=== PATIENT | male | born 1960 | race African-American/Black ===

== ENCOUNTER 2017-07-10 23:11 | Emergency (ER) | payer OTHER ==
[2017-07-10 23:19] VITALS: BP 138/93; TEMP 99.1; BMI 24.3
--- NOTE | 2017-07-10 23:46 | PDOC ---
History of Present Illness - General Chief Complaint: Pain, Acute Stated Complaint: LEG PAIN Time Seen by Provider: 07/10/17 23:38 History Source: Patient Exam Limitations: No Limitations - History of Present Illness Initial Comments: 07/10/17 23:46 Patient is a a 57 year old male with h/o DVT, Laryngeal paralysis c/o right leg pain x months. States pain is throbbing 9/10 unable to sleep so came for evaluation. States he has had this pain for at least 8 months and has not gotten evaluation for this symptoms. States he is being evaluated for condroscarcoma for a lesion in the neck. He was told he with have to have a trach to get a bx but he is looking for a second opinion - has appointment in another week. He has SOB but it is no worse than usual, denies fever, chills, PMD; Dr. Cody PMHX: As above PSOCHx: neg cig, neg drug, neg etoh ALL: NKDA GENERAL/CONSTITUTIONAL: [No fever or chills. No weakness. No weight change] HEAD, EYES, EARS, NOSE AND THROAT: [No change in vision. No ear pain or discharge. throat hoarseness.] CARDIOVASCULAR: [No chest pain or shortness of breath.] RESPIRATORY: [No cough, wheezing, or hemoptysis.] GASTROINTESTINAL: [No nausea, vomiting, diarrhea or constipation. No rectal bleeding.] GENITOURINARY: [No dysuria, frequency, or change in urination.] MUSCULOSKELETAL: [No joint or muscle swelling or pain. (+) neck mass, or back pain.] SKIN AND BREASTS: [No rash or easy bruising.] NEUROLOGIC: [No headache, vertigo, loss of consciousness, or loss of sensation.] PSYCHIATRIC: [No depression or anxiety.] ENDOCRINE: [No increased thirst. No abnormal weight change.] HEMATOLOGIC/LYMPHATIC: [No anemia, easy bleeding, or history of blood clots.] ALLERGIC/IMMUNOLOGIC: [No hives or skin allergy. No latex allergy.] GENERAL: [The patient is awake, alert, and fully oriented, in no acute distress. ] HEAD: [Normal with no signs of trauma.] EYES: [Pupils equal, round and reactive to light, extraocular movements intact, sclera anicteric, conjunctiva clear.] ENT: [Ears normal, nares patent, oropharynx clear without exudates. Moist mucous membranes, hoarse voice] NECK: [Normal range of motion, supple without lymphadenopathy, JVD, (+) large masses to the left neck.] LUNGS: [Breath sounds equal, clear to auscultation bilaterally. No wheezes, and no crackles.] HEART: [Regular rate and rhythm, normal S1 and S2 without murmur, rub.] ABDOMEN: [Soft, nontender, normoactive bowel sounds. No guarding, no rebound. No masses.] EXTREMITIES: [Normal range of motion, no edema. No clubbing or cyanosis. No cords, erythema, or tenderness.] NEUROLOGICAL: [Cranial nerves II through XII grossly intact. Normal speech, normal gait.] PSYCH: [Normal mood, normal affect.] SKIN: [Warm, Dry, normal turgor, no rashes or lesions noted Past History - Past Medical History Allergies/Adverse Reactions: Allergies Allergy/AdvReac Type Severity Reaction Status Date / Time No Known Allergies Allergy Verified 04/06/13 21:55 Home Medications: Ambulatory Orders Warfarin Sodium [Coumadin] 10 mg PO DAILY #30 tablet 04/12/13 Other medical history: dvt, tumor to neck - Psycho/Social/Smoking Cessation Hx Suicidal Ideation: No Smoking Status: No Smoking History: Never smoked Number of Cigarettes Smoked Daily: 0 Hx Alcohol Use: No Drug/Substance Use Hx: No Substance Use Type: None *Physical Exam - Vital Signs Last Vital Signs Temp Pulse Resp BP Pulse Ox 99.1 F 102 H 20 138/93 99 07/10/17 23:15 07/10/17 23:15 07/10/17 23:15 07/10/17 23:15 07/10/17 23:15 ED Treatment Course - RADIOLOGY Radiology Studies Ordered: Category Date Time Status DUPLEX VASCUL US-1 LEG [US] Stat Ultrasound 07/10/17 23:45 Ordered Medical Decision Making - Medical Decision Making 07/11/17 00:28 Patient is a a 57 year old male with h/o DVT, Laryngeal paralysis c/o right leg pain x months doppler of the right leg to r/o DVT 07/11/17 01:03 Patient Full Name: PEYTON MORENO Patient Accession No: [id number] Patient : [id number] Reason for Exam: right leg pain Referring Physician: Patient Name: PEYTON MORENO THIS IS A PRELIMINARYREPORT FROM [facility] EXAM: Venous duplex unilateral, right lower extremity IMAGES: 25 INDICATION: Rule out DVT DATE OF SERVICE: 2017-07-10 23:49:03 COMPARISON: none FINDINGS: There is no DVT in the right lower extremity. IMPRESSION: No DVT. THIS DOCUMENT HAS BEEN ELECTRONICALLY SIGNED Lasha Hernandez MD 07/11/2017 00:25 EST M.D. Please call [facility] [phone] ([phone]) with questions. INTERPRETING RADIOLOGIST: Rogerio Hernandez MD Electronically Signed: Jul 11, 2017 12:27AM EDT 07/11/17 01:05 Percocet 1 tab po for pain. I discussed the physical exam findings, ancillary test results and final diagnoses with the patient. I answered all of the patient's questions. The patient was satisfied with the care received and felt comfortable with the discharge plan and treatment plan. The Patient agrees to follow up with the primary care physician within 24-72 hours. 07/11/17 02:48 At discharge russell was given a percocet for pain. Patient after taking the percocet c/o sob and dropped his sat to 64%. States that pill did not go down. placed on the monitor and given oxygen. Patient swallowed and was relieved of symptoms. will observe # [id number] Spoke with patient about getting the neck mass looked at sooner since it seems Patient feeling better pain is resolved. Selected Entries 07/11/17 06:02 Pulse Rate [ 72 Apical] Respiratory 20 Rate O2 Sat by Pulse 96 Oximetry (%) *DC/Admit/Observation/Transfer Diagnosis at time of Disposition: Leg pain Qualifiers: Laterality: right Qualified Code(s): M79.604 - Pain in right leg - Discharge Dispostion Disposition: HOME Condition at time of disposition: Stable - Referrals Referrals: Johanna Mills MD [Primary Care Provider] - - Patient Instructions Printed Discharge Instructions: DI for Leg Pain Additional Instructions: Your Discharge Instructions: You must call primary care physician within 24 hours to arrange follow-up. Return to the Emergency Department with any new, persistent or worsening symptoms, for fever, chills, SOB, dizziness or any other concerning changes that may occur.
[2017-07-11] MEDS ORDERED: ALBUTEROL SO4 2.5/IPRATROPIUM 0.5 INH SOL 3 ML VIAL.NEB. NEB ONE (01:55)
[2017-07-11 06:03] VITALS: PULSE 72
== END 2017-07-11 06:03 | disposition home or self-care (01) ==
LOC: JER 23:11
DX: M79.604 Pain in right leg (principal); Z86.718 Personal history of other venous thrombosis and embolism; R22.1 Localized swelling, mass and lump, neck
CPT/HCPCS: 93971-TC; 99281-25

== ENCOUNTER 2017-07-20 22:38 | Emergency (ER) | payer OTHER ==
[2017-07-20 22:46] VITALS: BP 145/89; PULSE 94; TEMP 99.5; BMI 25.0
--- NOTE | 2017-07-21 00:05 | PDOC ---
History of Present Illness - General Chief Complaint: Pain Stated Complaint: LEG PAIN Time Seen by Provider: 07/20/17 23:04 - History of Present Illness Initial Comments: 07/21/17 00:05 CHIEF COMPLAINT: HISTORY OF PRESENT ILLNESS: 57 year old male with h/o DVT, Laryngeal paralysis returns to ED for right leg pain x months. Patient states he has had this pain for "maybe 6-8 months now" but it was "more aggravated today" so he came in for evaluation. Patient was seen in this ED less than two weeks ago and discharged after doppler study was negative for DVT. Patient denies any shortness of breath, chest pain, or palpitations. Patient reports his No recent travel or sick contacts. PAST MEDICAL HISTORY: Denies past medical history FAMILY HISTORY: Denies SOCIAL HISTORY: Denies tobacco, alcohol, illicit drug use. SURGICAL HISTORY: Denies ALLERGIES: No known drug allergies REVIEW OF SYSTEMS General/Constitutional: Denies fever or chills. Denies weakness, weight change. HEENT: Denies change in vision. Denies ear pain or discharge. Denies sore throat. Cardiovascular: Denies chest pain or shortness of breath. Respiratory: Denies cough, wheezing, or hemoptysis. Gastrointestinal: Denies nausea, vomiting, diarrhea or constipation. Denies rectal bleeding. Genitourinary: Denies dysuria, frequency, or change in urination. Musculoskeletal: Chronic R leg pain. Denies joint or muscle swelling or pain. Denies neck or back pain. Skin and breasts: Denies rash or easy bruising. PHYSICAL EXAM General Appearance: Well-appearing, appropriately dressed. No apparent distress , no intoxication. HEENT: EOMI, PERRLA, normal ENT inspection, normal voice, TMs normal, pharynx normal. No conjunctival pallor. No photophobia, scleral icterus. Neck: Supple. Trachea midline. No tenderness, rigidity, carotid bruit, stridor , lymphadenopathy, or thyromegaly. Respiratory/Chest: Lungs CTAB. No shortness of breath, chest tenderness, respiratory distress, accessory muscle use. No crackles, rales, rhonchi, stridor , wheezing, dullness Cardiovascular: RRR. S1, S2. No JVD, murmur, bradycardia, tachycardia. Vascular Pulses: Dorsalis-Pedis (R): 2+, Dorsalis-Pedis (L): 2+ Gastrointestinal/Abdominal: Normal bowel sounds. Abdomen soft, non-distended. No tenderness or rebound tenderness. No organomegaly, pulsatile mass, guarding , hernia, hepatomegaly, splenomegaly. Lymphatic: No adenopathy, tenderness. Musculoskeletal/Extremities: Normal inspection. FROM of all extremities, normal capillary refill. Pelvis Stable. No CVA tenderness. No tenderness to extremities, pedal edema, swelling, erythema or deformity. Integumentary: Appropriate color, dry, warm. No cyanosis, erythema, jaundice or rash Neurologic: immunology specialist II-XII intact. Fully oriented, alert. Appropriate mood/affect. Motor strength 5/5. No appreciable EOM palsy, facial droop or sensory deficit. Past History - Past Medical History Allergies/Adverse Reactions: Allergies Allergy/AdvReac Type Severity Reaction Status Date / Time No Known Allergies Allergy Verified 04/06/13 21:55 Home Medications: Ambulatory Orders Naproxen 250 mg PO BID PRN #15 tablet 07/21/17 - Psycho/Social/Smoking Cessation Hx Suicidal Ideation: No Smoking Status: No Smoking History: Never smoked Have you smoked in the past 12 months: No Number of Cigarettes Smoked Daily: 0 Information on smoking cessation initiated: No Hx Alcohol Use: No Drug/Substance Use Hx: No Substance Use Type: None *Physical Exam - Vital Signs Last Vital Signs Temp Pulse Resp BP Pulse Ox 99.5 F 94 H 19 145/89 98 07/20/17 22:43 07/20/17 22:43 07/20/17 22:43 07/20/17 22:43 07/20/17 22:43 ED Treatment Course - LABORATORY CBC & Chemistry Diagram: 07/20/17 23:48 - RADIOLOGY Radiology Studies Ordered: Category Date Time Status DUPLEX VASCUL US-1 LEG [US] Stat Ultrasound 07/20/17 23:31 Ordered Medical Decision Making - Medical Decision Making 07/21/17 04:12 57 year old male with h/o DVT, Laryngeal paralysis returns to ED for right leg pain x months. Patient states he has had this pain for "maybe 6-8 months now" but it was "more aggravated today" so he came in for evaluation. -BMP eval creatinine Toradol 60 mg IM Patient reassessed; states he is feeling better after Toradol. Will discharge with NSAID rx and f/u with PMD. Advised patient of signs and symptoms for return to ER; patient verbalized understanding and agrees to plan. *DC/Admit/Observation/Transfer Diagnosis at time of Disposition: Leg pain Qualifiers: Laterality: right Qualified Code(s): M79.604 - Pain in right leg - Discharge Dispostion Condition at time of disposition: Improved Admit: No - Prescriptions Prescriptions: Naproxen 250 mg PO BID PRN #15 tablet PRN Reason: Pain - Referrals Referrals: Johanna Mills MD [Primary Care Provider] - - Patient Instructions Printed Discharge Instructions: DI for Leg Pain Additional Instructions: Please follow up with Dr. Mills by the end of the week for further evaluation of your leg pain. If you develop any loss of sensation to your legs , any loss of bowel or bladder function, shortness of breath, palpitations, or any new or worsening symptoms, please return to the ER.
[2017-07-21 00:20] LABS: ANION GAP 7 (8-16); CALCIUM 9.2 mg/dL (8.5-10.1); CO2 31 mmol/L (21-32); CREATININE 1.1 mg/dL (0.7-1.3)
[2017-07-21] MEDS ORDERED: KETOROLAC TROMETHAMINE 60 MG/2 ML VIAL IM ONE (00:26)
[2017-07-21] MEDS ORDERED: KETOROLAC TROMETHAMINE 60 MG/2 ML VIAL ONE (00:38)
--- NOTE | 2017-07-21 01:09 | PDOC ---
*Physical Exam - Vital Signs Last Vital Signs Temp Pulse Resp BP Pulse Ox 99.5 F 94 H 19 145/89 98 07/20/17 22:43 07/20/17 22:43 07/20/17 22:43 07/20/17 22:43 07/20/17 22:43 ED Treatment Course - LABORATORY CBC & Chemistry Diagram: 07/20/17 23:48 - ADDITIONAL ORDERS Additional order review: Laboratory Results 07/20/17 23:48 Sodium 139 Potassium 4.0 Chloride 101 Carbon Dioxide 31 Anion Gap 7 L BUN 13 D Creatinine 1.1 Calcium 9.2 - Medications Given in the ED: ED Medications Discontinued Medications Generic Name Dose Route Start Last Admin Trade Name Freq PRN Reason Stop Dose Admin Ketorolac Tromethamine 60 mg 07/21/17 00:26 07/21/17 00:36 Toradol Injection - IM 07/21/17 00:27 60 mg ONCE ONE Administration Medical Decision Making - Medical Decision Making 07/21/17 01:09 agree with care from YANELIS avendano *DC/Admit/Observation/Transfer Diagnosis at time of Disposition: Leg pain - Prescriptions Prescriptions: Naproxen 250 mg PO BID PRN #15 tablet PRN Reason: Pain - Referrals Referrals: Johanna Mills MD [Primary Care Provider] - - Patient Instructions Printed Discharge Instructions: DI for Leg Pain Additional Instructions: Please follow up with Dr. Mills by the end of the week for further evaluation of your leg pain. If you develop any loss of sensation to your legs , any loss of bowel or bladder function, shortness of breath, palpitations, or any new or worsening symptoms, please return to the ER.
[2017-07-21 01:12] LABS: GLUCOSE,RANDOM 124 mg/dL (74-106)
== END 2017-07-21 04:29 | disposition home or self-care (01) ==
LOC: JER 22:38
PROC: 3E0233Z Introduction of Anti-inflammatory into Muscle, Percutaneous Approach (ICD-10-PCS; principal; 2017-07-20)
DX: M79.604 Pain in right leg (principal); G89.29 Other chronic pain; Z86.718 Personal history of other venous thrombosis and embolism
CPT/HCPCS: 36415; 80048; 93971-TC; 99282-25

== ENCOUNTER 2018-02-05 04:29 | Inpatient (IN) | payer OTHER ==
[2018-02-05 04:48] VITALS: BMI 20.5
--- NOTE | 2018-02-05 05:08 | PDOC ---
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 Pt was reportedly feeling unwell last night. states that he was acting "cranky". Pt is nonverbal at baseline due to laryngeal CA but is usually able to communicate. At 2 AM, found pt shaking in bed and not responding to her, prompting her to call EMS. In ED, pt appears awake, opening his eyes spontaneously. Pt makes makes purposeful movements with his hands and responds locally to painful stimuli. However, does not follow commands. Pt also noted to be incontinent of bowel. Past History - Past Medical History Allergies/Adverse Reactions: Allergies Allergy/AdvReac Type Severity Reaction Status Date / Time No Known Allergies Allergy Verified 02/05/18 04:41 Home Medications: Ambulatory Orders Naproxen 250 mg PO BID PRN #15 tablet 07/21/17 - Suicide/Smoking/Psychosocial Hx Smoking Status: No Smoking History: Unknown if ever smoked Have you smoked in the past 12 months: No Number of Cigarettes Smoked Daily: 0 Information on smoking cessation initiated: No Hx Alcohol Use: No Drug/Substance Use Hx: No Substance Use Type: None Review of Systems - Review of Systems Able to Perform ROS?: No *Physical Exam - Vital Signs Last Vital Signs Temp Pulse Resp BP Pulse Ox 101.4 F H 111 H 14 140/82 98 02/05/18 04:42 02/05/18 04:42 02/05/18 04:42 02/05/18 04:42 02/05/18 04:42 - Physical Exam Comments: 02/05/18 05:08 "GENERAL: Responsive to painful stimuli, in no acute distress HEAD: No signs of trauma EYES: PERRLA, EOMI, sclera anicteric, conjunctiva clear ENT: Auricles normal inspection, hearing grossly normal, nares patent, oropharynx clear without exudates. Moist mucosa NECK: Nontender, no stepoffs, Normal ROM, supple, no lymphadenopathy, JVD, or masses LUNGS: Breath sounds equal, clear to auscultation bilaterally. No wheezes, and no crackles HEART: Regular rate and rhythm, normal S1 and S2, no murmurs, rubs or gallops ABDOMEN: Soft, nontender, normoactive bowel sounds. No guarding, no rebound. No masses EXTREMITIES: Normal range of motion, no edema. No clubbing or cyanosis. No cords, erythema, or tenderness NEUROLOGICAL: Moves all extremities SKIN: Warm, Dry, normal turgor, no rashes or lesions noted. ED Treatment Course - LABORATORY CBC & Chemistry Diagram: 02/07/18 06:35 02/07/18 06:35 - RADIOLOGY Radiology Studies Ordered: Category Date Time Status HEAD CT WITHOUT CONTRAST [CT] Stat CT Scan 02/05/18 04:42 Ordered CHEST X-RAY PORTABLE* [RAD] Stat Radiology 02/05/18 04:42 Ordered Medical Decision Making - Medical Decision Making 02/05/18 05:10 57 M with metastatic laryngeal CA on chemotherapy presents to ED with AMS and rigors. Found to be febrile and tachycardic. Pt likely septic. Source unclear at this time. - Labs, cultures - CXR, UA - IVF, tylenol, abx *DC/Admit/Observation/Transfer Diagnosis at time of Disposition: Sepsis Qualifiers: Sepsis type: sepsis due to unspecified organism Qualified Code(s): A41.9 - Sepsis, unspecified organism - Discharge Dispostion Condition at time of disposition: Guarded - Referrals - Patient Instructions - Post Discharge Activity - Attestations Physician Attestion: 02/07/18 16:15 I, Dr. Cristian Hough MD, attest that this document has been prepared under my direction and personally reviewed by me in its entirety. I further attest, that it accurately reflects all work, treatment, procedures and medical decision -making performed by me.
[2018-02-05] MEDS ORDERED: SODIUM CHLORIDE 1,000 ML IV STA ×3 (05:09→18:29)
[2018-02-05] MEDS ORDERED: ACETAMINOPHEN 1000 MG/100 ML VIAL (NON FORMULARY) IVPB ONE ×2 (05:09→13:18)
[2018-02-05 05:11] LABS: HEMATOCRIT 27.8 % (35.4-49); HEMOGLOBIN 9.7 GM/dL (11.7-16.9); MCH 33.2 pg (25.7-33.7); MCHC 34.8 g/dl (32.0-35.9); MEAN CELL VOLUME 95.5 fl (80-96); MEAN PLT VOLUME 6.3 fl (7.5-11.1); PLATELET COUNT 292 K/MM3 (134-434); RBC 2.92 M/mm3 (4.00-5.60); RDW 15.1 % (11.9-15.9); WHITE BLOOD COUNT 3.1 K/mm3 (4.0-10.0)
[2018-02-05] MEDS ORDERED: VANCOMYCIN 1 GRAM (PRE-DOCKED) 1,000 MG/250 ML BAG IVPB ONE ×2 (05:11→05:40)
[2018-02-05] MEDS ORDERED: PIPERACILLIN/TAZOB 4.5 GM 4.5 GM/100 ML BAG IVPB ONE ×2 (05:11→05:40)
[2018-02-05] MEDS ORDERED: ACETAMINOPHEN INJECTION 100 ML IVPB ONE ×2 (05:40→14:02)
[2018-02-05 06:49] LABS: URINE APPEARANCE CLEAR; URINE BILIRUBIN NEGATIVE (<2.0 mg/dL); URINE BLOOD NEGATIVE (NEGATIVE); URINE COLOR DKYELLOW; URINE GLUCOSE (UA) NEGATIVE (NEGATIVE); URINE KETONE TRACE (NEGATIVE); URINE LEUK ESTERASE NEGATIVE (NEGATIVE); URINE NITRITE NEGATIVE (NEGATIVE); URINE UROBILINOGEN 4.0 E.U/dl mg/dL (0.2-1.0)
--- NOTE | 2018-02-05 07:22 | PDOC ---
*Physical Exam - Vital Signs Last Vital Signs Temp Pulse Resp BP Pulse Ox 101.4 F H 111 H 14 140/82 97 02/05/18 04:42 02/05/18 04:42 02/05/18 04:42 02/05/18 04:42 02/05/18 06:13 <Nila Salamanca - Last Filed: 02/05/18 10:55> - Vital Signs Last Vital Signs Temp Pulse Resp BP Pulse Ox 101.4 F H 111 H 14 140/82 97 02/05/18 04:42 02/05/18 04:42 02/05/18 04:42 02/05/18 04:42 02/05/18 06:13 <Ray Macdonald - Last Filed: 02/09/18 10:02> ED Treatment Course - LABORATORY CBC & Chemistry Diagram: 02/05/18 05:00 02/05/18 05:00 - ADDITIONAL ORDERS Additional order review: Laboratory Results 02/05/18 02/05/18 02/05/18 05:00 05:00 05:00 Sodium Potassium Chloride Carbon Dioxide Anion Gap BUN Creatinine Creat Clearance w eGFR Random Glucose Lactic Acid 2.7 H* Calcium Total Bilirubin AST ALT Alkaline Phosphatase Ammonia 16.67 Creatine Kinase Creatine Kinase Index CK-MB (CK-2) Troponin I Total Protein Albumin Urine Color Dkyellow Urine Appearance Clear Urine pH 8.0 Ur Specific Pinson 1.021 Urine Protein 1+ H Urine Glucose (UA) Negative Urine Ketones Trace H Urine Blood Negative Urine Nitrite Negative Urine Bilirubin Negative Urine Urobilinogen 4.0 e.u/dl Ur Leukocyte Esterase Negative Urine WBC (Auto) 1 Urine RBC (Auto) 3 Ur Epithelial Cells Rare 02/05/18 02/05/18 05:00 05:00 Sodium 130 L Potassium 4.1 Chloride 96 L Carbon Dioxide 24 D Anion Gap 10 BUN 10 D Creatinine 0.7 D Creat Clearance w eGFR > 60 Random Glucose 148 H Lactic Acid Calcium 6.5 L* D Total Bilirubin 0.6 D AST 54 H D ALT 51 D Alkaline Phosphatase 253 H D Ammonia Creatine Kinase 215 Creatine Kinase Index 0.4 CK-MB (CK-2) < 1.0 Troponin I < 0.02 Total Protein 6.8 Albumin 3.4 Urine Color Urine Appearance Urine pH Ur Specific Pinson Urine Protein Urine Glucose (UA) Urine Ketones Urine Blood Urine Nitrite Urine Bilirubin Urine Urobilinogen Ur Leukocyte Esterase Urine WBC (Auto) Urine RBC (Auto) Ur Epithelial Cells 02/05/18 05:00 RBC 2.92 L D MCV 95.5 MCHC 34.8 RDW 15.1 D MPV 6.3 L D Neutrophils % No Result Required. Lymphocytes % No Result Required. - Medications Given in the ED: ED Medications Discontinued Medications Generic Name Dose Route Start Last Admin Trade Name Freq PRN Reason Stop Dose Admin Acetaminophen 1,000 mg 02/05/18 05:09 02/05/18 05:51 Ofirmev Injection - IVPB 02/05/18 05:10 1,000 mg ONCE ONE Administration Sodium Chloride 1,000 mls @ 1,000 mls/hr 02/05/18 05:09 02/05/18 05:51 Normal Saline - IV 02/05/18 06:08 1,000 mls/hr ASDIR STA Administration Piperacillin/Tazobactam/Dextrose 4.5 gm in 100 mls @ 200 mls/hr 02/05/18 05: 11 02/05/18 06:12 Zosyn 4.5gm Ivpb (Premix) IVPB 02/05/18 05:40 200 mls/hr ONCE ONE Administration Protocol Ibuprofen 600 mg 02/05/18 09:29 02/05/18 09:38 Motrin - PO 02/05/18 09:30 600 mg ONCE ONE Administration Lorazepam 2 mg 02/05/18 04:44 02/05/18 05:06 Ativan Injection - IM 02/05/18 04:45 2 mg ONCE ONE Administration Vancomycin HCl 1,000 mg 02/05/18 05:11 02/05/18 05:51 Vancomycin (Pre-Docked) IVPB 02/05/18 05:12 1,000 mg ONCE ONE Administration Protocol <Nila Salamanca - Last Filed: 02/05/18 10:55> - LABORATORY CBC & Chemistry Diagram: 02/08/18 10:28 02/08/18 16:00 - ADDITIONAL ORDERS Additional order review: 02/05/18 05:00 RBC 2.92 L D MCV 95.5 MCHC 34.8 RDW 15.1 D MPV 6.3 L D Neutrophils % No Result Required. Lymphocytes % No Result Required. - Medications Given in the ED: ED Medications Discontinued Medications Generic Name Dose Route Start Last Admin Trade Name Freq PRN Reason Stop Dose Admin Acetaminophen 1,000 mg 02/05/18 05:09 02/05/18 05:51 Ofirmev Injection - IVPB 02/05/18 05:10 1,000 mg ONCE ONE Administration Sodium Chloride 1,000 mls @ 1,000 mls/hr 02/05/18 05:09 02/05/18 05:51 Normal Saline - IV 02/05/18 06:08 1,000 mls/hr ASDIR STA Administration Piperacillin/Tazobactam/Dextrose 4.5 gm in 100 mls @ 200 mls/hr 02/05/18 05: 11 02/05/18 06:12 Zosyn 4.5gm Ivpb (Premix) IVPB 02/05/18 05:40 200 mls/hr ONCE ONE Administration Protocol Lorazepam 2 mg 02/05/18 04:44 02/05/18 05:06 Ativan Injection - IM 02/05/18 04:45 2 mg ONCE ONE Administration Vancomycin HCl 1,000 mg 02/05/18 05:11 02/05/18 05:51 Vancomycin (Pre-Docked) IVPB 02/05/18 05:12 1,000 mg ONCE ONE Administration Protocol <Ray Macdonald - Last Filed: 02/09/18 10:02> Medical Decision Making - Medical Decision Making 02/05/18 10:53 Case discussed with YANELIS Hinson under Hospitalist Service (Dr. Matthew), for admission for eval of Sepsis. <Nila Salamanca - Last Filed: 02/05/18 10:55> - Medical Decision Making 02/05/18 07:22 Pt signed out to me from Dr. Hough at 7am pt is a 57y M hx of htn, met laryngeal ca, on chemo (last 2 weeks ago) presnting with AMS and rigors, found to be febrile here to 101. Currently awaiting lab work, UA, cxr to determine source, but was covered with vanc/ zosyn. anticipate admission <Ray Macdonald - Last Filed: 02/09/18 10:02> *DC/Admit/Observation/Transfer <Nila Salamanca - Last Filed: 02/05/18 10:55> - Discharge Dispostion Admit: Yes <Ray Macdonald - Last Filed: 02/09/18 10:02> Diagnosis at time of Disposition: Sepsis Qualifiers: Sepsis type: sepsis due to unspecified organism Qualified Code(s): A41.9 - Sepsis, unspecified organism - Discharge Dispostion Condition at time of disposition: Guarded
[2018-02-05 07:57] LABS: URINE PROTEIN 1+ (NEGATIVE)
[2018-02-05] MEDS ORDERED: ACETAMINOPHEN 325 MG TABLET (FP) ONE (09:09)
[2018-02-05 09:15] LABS: MACROCYTOSIS 1+; OVALOCYTE 1+
[2018-02-05] MEDS ORDERED: IBUPROFEN 400 MG TABLET (FP) PO ONE (09:29)
[2018-02-05 09:30] LABS: EPI CELLS RARE /HPF (FEW)
[2018-02-05] MEDS ORDERED: IBUPROFEN 100 MG/5 ML UNIT DOSE CUPS ONE (09:31)
[2018-02-05 10:17] LABS: ALBUMIN 3.4 g/dl (3.4-5.0); ALK PHOS 253 U/L (45-117); ANION GAP 10 (8-16); BILIRUBIN,TOTAL 0.6 mg/dL (0.2-1.0); BLOOD UREA NITROGEN 10 mg/dL (7-18); CHLORIDE 96 mmol/L (98-107); CO2 24 mmol/L (21-32); CREATININE 0.7 mg/dL (0.7-1.3); GLUCOSE,RANDOM 148 mg/dL (74-106); POTASSIUM 4.1 mmol/L (3.5-5.1); SGOT/AST 54 U/L (15-37); SGPT/ALT 51 U/L (12-78); SODIUM 130 mmol/L (136-145); TOT PROT 6.8 g/dl (6.4-8.2)
[2018-02-05 10:41] LABS: CALCIUM 6.5 mg/dL (8.5-10.1)
[2018-02-05 13:29] LABS: INR 1.17 (0.82-1.09); PROTHROMBIN TIME (PATIENT) 13.2 SEC (9.98-11.88)
[2018-02-05 13:31] LABS: ACTIVATED PTT 27.4 SECONDS (26.9-34.4)
--- NOTE | 2018-02-05 14:05 | HP ---
CHIEF COMPLAINT: altered mental status PCP: Dr. Johanna Mills, PCP Dr. Barbara Russo, Oncologist HISTORY OF PRESENT ILLNESS: Patient is a 57 year old male with a significant past medical history of 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 He has metastatic disease to the right hip and is usually on a Fentanyl patch (75mcgs) for pain management. He is s/p chemotherapy apx 2 weeks ago. states that up until early last fall patient was well, healthy. He then began to have voice hoarseness and was diagnosed with a large laryngeal tumor. He had his voice box removed August 2017 and subsequently had a trach and Peg tube placed. She reports that her never smoked or drank. She further states that in the past few months patient was able to ambulate with a rolling walker and was able to make his needs known by either writing or by mouthing his words. He gets about 4 cans of Jevity via his peg tube daily but she noticed that he had increased weight loss in the past few months. She also stated that last week, he was complaining of abdominal pain and had some distention around the G tube site. She thought that he may have been constipated and initiated a bowel regimen. After he had a BM he still had pain and a tender abdomen. His last chemo was 2 weeks ago, she is unsure if he had received Neupogen. He was brought in to the ED today for altered mentation and rigors. He was at home with her and became restless overnight. This morning she found him minimally responsive which prompted an ED visit. Home medications: Epanaid 10mg BID via g. tube Carvedilol 6.25mg BID via g tube for hypertension Oxycodone 15mg q4-q6 prn for severe pain Celebrex 100mg BID via g tube for pain Fentanyl 75mcgs q 72 hrs In the ED patient is lethargic, moaning, restless. He responds to tactile stimuli but is not following commands. He was febrile, and was found to have lactic acidosis on admission. 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 Social History: Smoking: none reported Alcohol: none reported Drugs: none reported Family History: Allergies No Known Allergies Allergy (Verified 02/05/18 04:41) HOME MEDICATIONS: Home Medications Medication Instructions Recorded Naproxen 250 mg PO BID PRN #15 tablet 07/21/17 PHYSICAL EXAMINATION Vital Signs - 24 hr 02/05/18 02/05/18 02/05/18 04:42 06:13 09:50 Temperature 101.4 F H 101.3 F H Pulse Rate 111 H Pulse Rate [ 112 H Left Apical] Respiratory 14 16 Rate Blood Pressure 140/82 Blood Pressure 143/58 [Left Arm] O2 Sat by Pulse 98 97 98 Oximetry (%) 02/05/18 13:56 Temperature Pulse Rate Pulse Rate [ 106 H Left Apical] Respiratory 16 Rate Blood Pressure Blood Pressure 116/58 [Left Arm] O2 Sat by Pulse 95 Oximetry (%) GENERAL: Lethargic, restless, non verbal HEAD: Normal with no signs of trauma. EYES: unable to assess NECK: laryngectomy LUNGS: Breath sounds equal to auscultation, diminished posteriorly HEART: Regular rate and rhythm ABDOMEN: Peg tube present MUSCULOSKELETAL: Normal range of motion at all joints. No bony deformities or tenderness. No CVA tenderness. UPPER EXTREMITIES: 2+ pulses, warm, well-perfused. No cyanosis. No clubbing. No peripheral edema. LOWER EXTREMITIES: 2+ pulses, warm, well-perfused. No calf tenderness. No peripheral edema. NEUROLOGICAL: Non verbal, restless PSYCHIATRIC: unable to assess 2/2 to AMS SKIN: Stage 2 sacral pressure ulcer POA Laboratory Results - last 24 hr 02/05/18 02/05/18 02/05/18 05:00 05:00 05:00 WBC 3.1 L D RBC 2.92 L D Hgb 9.7 L D Hct 27.8 L D MCV 95.5 MCH 33.2 MCHC 34.8 RDW 15.1 D Plt Count 292 MPV 6.3 L D Total Counted 100 Neutrophils % No Result Required. Neutrophils % (Manual) 54.0 Band Neutrophils % 5.0 Lymphocytes % No Result Required. Lymphocytes % (Manual) 22.0 Monocytes % (Manual) 14 H Basophils % (Manual) 1.0 Metamyelocytes 3 H Macrocytosis 1+ Ovalocytes 1+ PT with INR INR PTT (Actin FS) Sodium 130 L Potassium 4.1 Chloride 96 L Carbon Dioxide 24 D Anion Gap 10 BUN 10 D Creatinine 0.7 D Creat Clearance w eGFR > 60 Random Glucose 148 H Lactic Acid Calcium 6.5 L* D Total Bilirubin 0.6 D AST 54 H D ALT 51 D Alkaline Phosphatase 253 H D Ammonia Creatine Kinase 215 Creatine Kinase Index 0.4 CK-MB (CK-2) < 1.0 Troponin I < 0.02 Total Protein 6.8 Albumin 3.4 Urine Color Urine Appearance Urine pH Ur Specific Marsing Urine Protein Urine Glucose (UA) Urine Ketones Urine Blood Urine Nitrite Urine Bilirubin Urine Urobilinogen Ur Leukocyte Esterase Urine WBC (Auto) Urine RBC (Auto) Ur Epithelial Cells 02/05/18 02/05/18 02/05/18 05:00 05:00 05:00 WBC RBC Hgb Hct MCV MCH MCHC RDW Plt Count MPV Total Counted Neutrophils % Neutrophils % (Manual) Band Neutrophils % Lymphocytes % Lymphocytes % (Manual) Monocytes % (Manual) Basophils % (Manual) Metamyelocytes Macrocytosis Ovalocytes PT with INR INR PTT (Actin FS) Sodium Potassium Chloride Carbon Dioxide Anion Gap BUN Creatinine Creat Clearance w eGFR Random Glucose Lactic Acid 2.7 H* Calcium Total Bilirubin AST ALT Alkaline Phosphatase Ammonia 16.67 Creatine Kinase Creatine Kinase Index CK-MB (CK-2) Troponin I Total Protein Albumin Urine Color Dkyellow Urine Appearance Clear Urine pH 8.0 Ur Specific Marsing 1.021 Urine Protein 1+ H Urine Glucose (UA) Negative Urine Ketones Trace H Urine Blood Negative Urine Nitrite Negative Urine Bilirubin Negative Urine Urobilinogen 4.0 e.u/dl Ur Leukocyte Esterase Negative Urine WBC (Auto) 1 Urine RBC (Auto) 3 Ur Epithelial Cells Rare 02/05/18 02/05/18 02/05/18 11:37 12:05 13:10 WBC RBC Hgb Hct MCV MCH MCHC RDW Plt Count MPV Total Counted Neutrophils % Neutrophils % (Manual) Band Neutrophils % Lymphocytes % Lymphocytes % (Manual) Monocytes % (Manual) Basophils % (Manual) Metamyelocytes Macrocytosis Ovalocytes PT with INR Cancelled 13.20 H INR Cancelled 1.17 H PTT (Actin FS) Cancelled 27.4 D Sodium Potassium Chloride Carbon Dioxide Anion Gap BUN Creatinine Creat Clearance w eGFR Random Glucose Lactic Acid 3.1 H* Calcium Total Bilirubin AST ALT Alkaline Phosphatase Ammonia Creatine Kinase Creatine Kinase Index CK-MB (CK-2) Troponin I Total Protein Albumin Urine Color Urine Appearance Urine pH Ur Specific Marsing Urine Protein Urine Glucose (UA) Urine Ketones Urine Blood Urine Nitrite Urine Bilirubin Urine Urobilinogen Ur Leukocyte Esterase Urine WBC (Auto) Urine RBC (Auto) Ur Epithelial Cells ASSESSMENT/PLAN: Patient is a 57 year old male with a significant past medical history of 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 He has metastatic disease to the right hip and is usually on a Fentanyl patch (75mcgs) for pain management. He is s/p chemotherapy apx 2 weeks ago. states that up until early last fall patient was well, healthy. He then began to have voice hoarseness and was diagnosed with a large laryngeal tumor. He had his voice box removed August 2017 and subsequently had a trach and Peg tube placed. She reports that her never smoked or drank. She further states that in the past few months patient was able to ambulate with a rolling walker and was able to make his needs known by either writing or by mouthing his words. He gets about 4 cans of Jevity via his peg tube daily but she noticed that he had increased weight loss in the past few months. She also stated that last week, he was complaining of abdominal pain and had some distention around the G tube site. She thought that he may have been constipated and initiated a bowel regimen. After he had a BM he still had pain and a tender abdomen. His last chemo was 2 weeks ago, she is unsure if he had received Neupogen. He was brought in to the ED today for altered mentation and rigors. He was at home with her and became restless overnight. This morning she found him minimally responsive which prompted an ED visit. ID: Metabolic enchepalopathy secondary to sepsis Sepsis, etiology uncertain Presents with fever, tachycardia, Lactic acidosis Blood and urine cultures sent Seen by ID in the ER and was started on Vanco and Zosyn Patient has hx of laryngeal cancer, Head CT negative, will order MRI to r/o of metastatic disease No history of seizure reported Monitor mental status Will history of abdominal pain and distention last week and AMS now, will CT scan abd to r/o abscess or source of sepsis Neuro consult pending brain MRI Onc: Metastatic Laryngeal cancer with laryngectomy Mets to right hip, lethargy on admission Brain MRI pending Followed by oncology at [facility] consult Cardiology: Hypertension, chronic Monitor Hold antihypertensives in the setting of sepsis Muscular/skeletal Cachexia, chronic Hold feeds until CT scan results Start on Clinimax if prolonged NPO RD to follow during hospitalization F.E.N. Fluids: IVF, Clinimax Electrolytes: monitor: hypocalcemia corrected at 7.0, hyponatremia monitor Nutrition: Hold G tube feeds until fevers subside. Prophy: DVT: Lovenox 40mg GI: Protonix IV Visit type - Emergency Visit Emergency Visit: Yes ED Registration Date: 02/05/18 Care time: The patient presented to the Emergency Department on the above date and was hospitalized for further evaluation of their emergent condition. - New Patient This patient is new to me today: Yes Date on this admission: 02/06/18 - Critical Care Critical Care patient: No Hospitalist Screening - Colonoscopy Questionnaire Colonoscopy Questionnaire: Colonoscopy Questionnaire - Patient: 50 - 75 years old and never had a screening colonoscopy: Yes History of colon or rectal polyps, or CA: Yes History of IBD, Crohn's disease or UC: No History of abdominal radiation therapy as a child: No - Relative: 1 with colon or rectal CA, or polyps at age 60 or younger: Unknown Colon or rectal CA diagnosed at age 45 or younger: Unknown Multiple relatives with colon or rectal CA: Unknown - Outcome: Screening Result: Positive Screen
--- NOTE | 2018-02-05 14:11 | CON.ID ---
Consult Consult Specialty:: infectious diseases Reason for Consultation:: pmeumonia,confusion, - History of Present Illness History of Present Illness: patient totally confused no history available from the patient which is taken from the er attending and the charts 57 M with h/o HTN, metastatic laryngeal CA ) on chemotherapy (last tx 2 weeks ago) presenting to ED with AMS and rigors. Pt was reportedly feeling unwell last night. states that he was acting "cranky". Pt is nonverbal at baseline due to laryngeal CA but is usually able to communicate. At 2 AM, found pt shaking in bed and not responding to her, prompting her to call EMS. currently patient is lethargic it seems earlier patient was awake also of note his trach is outside the trachea - History Source History Provided By: Medical Record Limitations to Obtaining History: Clinical Condition - Alcohol/Substance Use Hx Alcohol Use: No - Smoking History Smoking history: Unknown if ever smoked Have you smoked in the past 12 months: No Aproximately how many cigarettes per day: 0 Home Medications - Allergies Allergies/Adverse Reactions: Allergies Allergy/AdvReac Type Severity Reaction Status Date / Time No Known Allergies Allergy Verified 02/05/18 04:41 - Home Medications Home Medications: Ambulatory Orders Naproxen 250 mg PO BID PRN #15 tablet 07/21/17 Review of Systems Unable to obtain ROS, reason: unable to obtain - Review of Systems Constitutional: reports: Chills, Other Neck: reports: Other (trach estomy site with trach which is outside) Cardiovascular: reports: No Symptoms Gastrointestinal: reports: No Symptoms Genitourinary: reports: No Symptoms Musculoskeletal: reports: No Symptoms Integumentary: reports: No Symptoms Neurological: reports: Change in LOC Physical Exam Vital Signs: Vital Signs Temperature 101.3 F H 02/05/18 09:50 Pulse Rate 106 H 02/05/18 13:56 Respiratory Rate 16 02/05/18 13:56 Blood Pressure 116/58 02/05/18 13:56 O2 Sat by Pulse Oximetry (%) 95 02/05/18 13:56 Constitutional: Yes: Thin, Other (failure to thrive) Eyes: Yes: Conjunctiva Clear HENT: Yes: Atraumatic, Normocephalic Neck: Yes: Supple, Other (trachestomy site--clean,trach which has been displaced outside) Cardiovascular: Yes: Regular Rate and Rhythm Respiratory: Yes: Poor Air Entry, Rhonchi, Other Gastrointestinal: Yes: Normal Bowel Sounds, Soft, Other (peg in place site looks good) Musculoskeletal: Yes: WNL Extremities: Yes: WNL Neurological: Yes: Confusion, Lethargy, Other (non verbal) Psychiatric: Yes: Other Labs: CBC, BMP 02/05/18 05:00 02/05/18 05:00 Imaging - Results Chest X-ray: Report Reviewed, Image Reviewed Cat Scan: Report Reviewed, Image Reviewed Assessment/Plan after seeing the patient and seeing the trach now which ahs been replaced is if the patient was devoid of oxygen,also if he is developing pneumonia the imaging studies do not show anything specific his wbc is slightly on the lower side but he has just receive chemo also no specific symptoms in his abd could be elicited as he is confused all his labs i suspect are reflection of his disease and need to be closely folowed r/o pna r/o intrabd patho confusion lethargy dehydration electrolyte abn plan will start on broad spectrum abx hydration await for all cx rest continue current mgmt ent to have a look at the trach site as i suspect the trach is not going to stay
[2018-02-05] MEDS ORDERED: PIPERACILLIN/TAZOB 3.375 GM/50 ML PRE-DOCKED IVPB ONE (14:13)
[2018-02-05] MEDS ORDERED: PIPERACILLIN/TAZOB 3.375 GM 3.375 GM/50 ML BAG IVPB ONE (16:15)
[2018-02-05] MEDS ORDERED: PIPERACILLIN/TAZOB 3.375 GM 50 ML IVPB SCH (18:00)
[2018-02-05] MEDS ORDERED: ENOXAPARIN NA (PORCINE) 40 MG/0.4 ML DISP.SYRIN SQ ONE (19:54)
--- NOTE | 2018-02-05 21:22 | EKG ---
Test Reason : Blood Pressure : / mmHG Vent. Rate : 113 BPM Atrial Rate : 113 BPM P-R Int : 170 ms QRS Dur : 074 ms QT Int : 382 ms P-R-T Axes : 054 001 066 degrees QTc Int : 523 ms POOR DATA QUALITY, INTERPRETATION MAY BE ADVERSELY AFFECTED SINUS TACHYCARDIA WITH OCCASIONAL PREMATURE VENTRICULAR COMPLEXES AND FUSION COMPLEXES T WAVE ABNORMALITY, CONSIDER LATERAL ISCHEMIA PROLONGED QT ABNORMAL ECG WHEN COMPARED WITH ECG OF 05-FEB-2018 05:27, COMPARED TO EKG NO SIGNIFICANT CHANGE IS FOUND Confirmed by FLAKITO WILLAMS MD ([id number]) on 02/05/2018 9:22:19 PM Referred By: Confirmed By:FLAKITO WILLAMS MD
--- NOTE | 2018-02-05 21:28 | EKG ---
Test Reason : Blood Pressure : / mmHG Vent. Rate : 114 BPM Atrial Rate : 114 BPM P-R Int : 156 ms QRS Dur : 080 ms QT Int : 348 ms P-R-T Axes : 079 025 028 degrees QTc Int : 479 ms SINUS TACHYCARDIA CANNOT RULE OUT ANTERIOR INFARCT (CITED ON OR BEFORE 06-APR-2013) NONSPECIFIC T WAVE ABNORMALITY ABNORMAL ECG WHEN COMPARED WITH ECG OF 06-APR-2013 22:30, NO SIGNIFICANT CHANGE WAS FOUND Confirmed by FLAKITO WILLAMS MD ([id number]) on 02/05/2018 9:28:02 PM Referred By: Confirmed By:FLAKITO WILLAMS MD
[2018-02-05] MEDS ORDERED: CALCIUM 250MG/VIT-D 125 UNITS 1 COMBO TABLET PO SCH (22:00)
[2018-02-05] MEDS: ENOXAPARIN NA (PORCINE) 40 MG/0.4 ML DISP.SYRIN SQ SCH (23:23)
[2018-02-06] MEDS: PIPERACILLIN/TAZOB 3.375 GM 3.375 GM in DEXTROSE 5%-WATER - 50 ML IVPB SCH ×3 (01:30→19:11)
[2018-02-06] MEDS ORDERED: PT OWN MED DRAWER 7, Y5N ONE ×4 (01:40→22:35)
[2018-02-06] MEDS ORDERED: LEVOTHYROXINE NA 100 MCG TABLET (FP) PO SCH (07:00)
[2018-02-06] MEDS ORDERED: VANCOMYCIN 1,250 MG in DEXTROSE 5%-WATER - 250 ML IVPB SCH (10:00)
--- NOTE | 2018-02-06 10:25 | PN ---
Physical Exam: SUBJECTIVE: Patient seen and examined at the bedside. More awake and alert, seems irritated by staff when they attempt to clean/wash him. OBJECTIVE: ENT consult for laryngectomy RN reports green discharge from patient's peg tube site Vital Signs Period Temp Pulse Resp BP Sys/Shrestha Pulse Ox Last 24 Hr 97.8 F-98.9 F 95-106 16-18 91-116/58-79 95-99 GENERAL: More awake, alert today, irritated HEAD: Laryngectomy EYES: unable to assess LUNGS: Breath sounds equal to auscultation, diminished posteriorly HEART: Regular rate and rhythm ABDOMEN: Peg tube present MUSCULOSKELETAL: Normal range of motion at all joints. No bony deformities or tenderness. No CVA tenderness. UPPER EXTREMITIES: 2+ pulses, warm, well-perfused. No cyanosis. No clubbing. No peripheral edema. LOWER EXTREMITIES: 2+ pulses, warm, well-perfused. No calf tenderness. No peripheral edema. NEUROLOGICAL: Non verbal, restless SKIN: Stage 2 sacral pressure ulcer POA Laboratory Results - last 24 hr 02/05/18 02/05/18 02/05/18 05:00 05:00 11:37 PT with INR INR PTT (Actin FS) Sodium 130 L Potassium 4.1 Chloride 96 L Carbon Dioxide 24 D Anion Gap 10 BUN 10 D Creatinine 0.7 D Creat Clearance w eGFR > 60 POC Glucometer Random Glucose 148 H Lactic Acid 3.1 H* Calcium 6.5 L* D Total Bilirubin 0.6 D AST 54 H D ALT 51 D Alkaline Phosphatase 253 H D Creatine Kinase 215 Creatine Kinase Index 0.4 CK-MB (CK-2) < 1.0 Troponin I < 0.02 Total Protein 6.8 Albumin 3.4 02/05/18 02/05/18 02/05/18 12:05 13:10 15:21 PT with INR Cancelled 13.20 H INR Cancelled 1.17 H PTT (Actin FS) Cancelled 27.4 D Sodium Potassium Chloride Carbon Dioxide Anion Gap BUN Creatinine Creat Clearance w eGFR POC Glucometer [phone] Random Glucose Lactic Acid Calcium Total Bilirubin AST ALT Alkaline Phosphatase Creatine Kinase Creatine Kinase Index CK-MB (CK-2) Troponin I Total Protein Albumin 02/05/18 02/05/18 02/06/18 17:30 19:56 03:41 PT with INR INR PTT (Actin FS) Sodium Potassium Chloride Carbon Dioxide Anion Gap BUN Creatinine Creat Clearance w eGFR POC Glucometer 94 Random Glucose Lactic Acid 2.3 H* Calcium Total Bilirubin AST ALT Alkaline Phosphatase Creatine Kinase Creatine Kinase Index CK-MB (CK-2) Troponin I < 0.02 Total Protein Albumin 02/06/18 06:34 PT with INR INR PTT (Actin FS) Sodium Potassium Chloride Carbon Dioxide Anion Gap BUN Creatinine Creat Clearance w eGFR POC Glucometer 86 Random Glucose Lactic Acid Calcium Total Bilirubin AST ALT Alkaline Phosphatase Creatine Kinase Creatine Kinase Index CK-MB (CK-2) Troponin I Total Protein Albumin Active Medications Generic Name Dose Route Start Last Admin Trade Name Freq PRN Reason Stop Dose Admin Calcium/Vitamin D 1 tab 02/06/18 07:25 Oscal 250 Mg+D - NR BID YUKO Enoxaparin Sodium 40 mg 02/05/18 22:00 02/05/18 23:23 Lovenox - SQ 40 mg DAILY YUKO Administration Vancomycin HCl 1,250 mg/ 250 mls @ 166.667 mls/hr 02/06/18 10:00 Dextrose IVPB DAILY YUKO Protocol Piperacillin Sod/Tazobactam 50 mls @ 100 mls/hr 02/06/18 02:00 02/06/18 01:30 Sod 3.375 gm/ Dextrose IVPB 100 mls/hr Q8H-IV YUKO Administration Protocol Levothyroxine Sodium 100 mcg 02/06/18 09:15 Synthroid - PEG DAILY@0700 YUKO Pantoprazole Sodium 40 mg 02/06/18 10:00 Protonix Iv IVPUSH DAILY YUKO ASSESSMENT/PLAN: Patient is a 57 year old male with a significant past medical history of 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 He has metastatic disease to the right hip and is usually on a Fentanyl patch (75mcgs) for pain management. He is s/p chemotherapy apx 2 weeks ago. states that up until early last fall patient was well, healthy. He then began to have voice hoarseness and was diagnosed with a large laryngeal tumor. He had his voice box removed August 2017 and subsequently had a trach and Peg tube placed. She reports that her never smoked or drank. She further states that in the past few months patient was able to ambulate with a rolling walker and was able to make his needs known by either writing or by mouthing his words. He gets about 4 cans of Jevity via his peg tube daily but she noticed that he had increased weight loss in the past few months. She also stated that last week, he was complaining of abdominal pain and had some distention around the G tube site. She thought that he may have been constipated and initiated a bowel regimen. After he had a BM he still had pain and a tender abdomen. His last chemo was 2 weeks ago, she is unsure if he had received Neupogen. He was brought in to the ED for altered mentation and rigors. He was at home with her and became restless and she found him minimally responsive which prompted an ED visit. ID: Metabolic enchepalopathy secondary to sepsis Sepsis, etiology uncertain Presents with fever, tachycardia, Lactic acidosis Blood and urine cultures pending Seen by ID in the ER and was started on Vanco and Zosyn Patient has hx of laryngeal cancer, Head CT negative, will order MRI to r/o of metastatic disease No history of seizure reported Monitor mental status which seems to be improving Will history of abdominal pain, distention last week and AMS now, will CT scan abd to r/o abscess or source of sepsis Neuro consult pending brain MRI Onc: Metastatic Laryngeal cancer with laryngectomy Mets to right hip, lethargy on admission Brain MRI pending Followed by oncologist at [facility] consult Cardiology: Hypertension, chronic Monitor Hold antihypertensives in the setting of sepsis Hypothyroidism: Synthroid increased to 100mcg from 75mcgs 2 weeks ago as per pt Continue Synthroid 100mcgs Muscular/skeletal Cachexia, chronic Hold feeds until CT scan results Started on Clinimax RD to follow during hospitalization F.E.N. Fluids: IVF, Clinimax Electrolytes: monitor: hypocalcemia corrected at 5.8 started on supplements, added clinimax hyponatremia improving with IVF Nutrition: Hold G tube feeds until ct scan results Prophy: DVT: Lovenox 40mg GI: Protonix IV Visit type - Emergency Visit Emergency Visit: Yes ED Registration Date: 02/05/18 Care time: The patient presented to the Emergency Department on the above date and was hospitalized for further evaluation of their emergent condition. - New Patient This patient is new to me today: No - Critical Care Critical Care patient: No - Discharge Referral Referred to [facility] Med P.C.: No
[2018-02-06] MEDS: CALCIUM 250MG/VIT-D 125 UNITS 1 COMBO TABLET NR SCH ×3 (10:41→22:37)
[2018-02-06] MEDS: ENOXAPARIN NA (PORCINE) 40 MG/0.4 ML DISP.SYRIN SQ SCH (10:41)
[2018-02-06] MEDS: LEVOTHYROXINE NA 100 MCG TABLET (FP) PEG SCH (10:41)
[2018-02-06] MEDS: PANTOPRAZOLE SODIUM 40 MG VIAL IVPUSH SCH (10:41)
[2018-02-06] MEDS ORDERED: SODIUM CHLORIDE 1,000 ML IV SCH (11:00)
[2018-02-06 11:06] LABS: HEMATOCRIT 26.3 % (35.4-49); HEMOGLOBIN 8.9 GM/dL (11.7-16.9); MCH 32.3 pg (25.7-33.7); MCHC 33.8 g/dl (32.0-35.9); MEAN CELL VOLUME 95.6 fl (80-96); MEAN PLT VOLUME 6.3 fl (7.5-11.1); PLATELET COUNT 290 K/MM3 (134-434); RBC 2.75 M/mm3 (4.00-5.60); RDW 15.5 % (11.9-15.9); WHITE BLOOD COUNT 3.8 K/mm3 (4.0-10.0)
[2018-02-06 11:37] LABS: ALBUMIN 3.1 g/dl (3.4-5.0); ANION GAP 9 (8-16); BLOOD UREA NITROGEN 6 mg/dL (7-18); CHLORIDE 100 mmol/L (98-107); CO2 24 mmol/L (21-32); CREATININE 0.6 mg/dL (0.7-1.3); GLUCOSE,RANDOM 80 mg/dL (74-106); MAGNESIUM 2.2 mg/dL (1.8-2.4); PHOSPHOROUS 2.6 mg/dL (2.5-4.9); POTASSIUM 3.8 mmol/L (3.5-5.1); SGOT/AST 39 U/L (15-37); SGPT/ALT 35 U/L (12-78); SODIUM 133 mmol/L (136-145)
[2018-02-06 11:47] LABS: ALK PHOS 200 U/L (45-117); BILIRUBIN,TOTAL 0.6 mg/dL (0.2-1.0); TOT PROT 6.2 g/dl (6.4-8.2)
[2018-02-06 11:57] LABS: CALCIUM 5.1 mg/dL (8.5-10.1)
[2018-02-06] MEDS ORDERED: CALCIUM GLUCONATE 10% - 1,000 MG/10 ML VIAL IVPB ONE (12:02)
[2018-02-06] MEDS ORDERED: AA 2.75 %/CALCIUM/LYTES/D7.5W 1,000 ML IV SCH (12:30)
--- NOTE | 2018-02-06 13:12 | PN ---
Progress Note, Physician History of Present Illness: patient much more awake and alert trach still not in place properly patient able to understand and nod as he is non verbal because of disease and trach feels better - Current Medication List Current Medications: Active Medications Calcium/Vitamin D (Oscal 250 Mg+D -) 1 tab NR BID [facility] Last Admin: 02/06/18 12:47 Dose: 1 tab Enoxaparin Sodium (Lovenox -) 40 mg SQ DAILY [facility] Last Admin: 02/06/18 10:41 Dose: 40 mg Vancomycin HCl 1,250 mg/ (Dextrose) 250 mls @ 166.667 mls/hr IVPB DAILY YUKO PRN Reason: Protocol Last Admin: 02/06/18 12:08 Dose: 166.667 mls/hr Piperacillin Sod/Tazobactam (Sod 3.375 gm/ Dextrose) 50 mls @ 100 mls/hr IVPB Q8H-IV YUKO PRN Reason: Protocol Last Admin: 02/06/18 11:00 Dose: 100 mls/hr Sodium Chloride (Normal Saline -) 1,000 mls @ 100 mls/hr IV ASDIR [facility] Last Admin: 02/06/18 12:08 Dose: 100 mls/hr Amino Acids (Clinimix -) 1,000 mls @ 84 mls/hr IV Q12H [facility] Levothyroxine Sodium (Synthroid -) 100 mcg PEG DAILY@0700 [facility] Last Admin: 02/06/18 10:41 Dose: 100 mcg Pantoprazole Sodium (Protonix Iv) 40 mg IVPUSH DAILY [facility] Last Admin: 02/06/18 10:41 Dose: 40 mg - Objective Vital Signs: Vital Signs Temperature 97.8 F 02/06/18 05:48 Pulse Rate 100 H 02/06/18 10:36 Respiratory Rate 20 02/06/18 10:36 Blood Pressure 133/72 02/06/18 10:36 O2 Sat by Pulse Oximetry (%) 99 02/06/18 00:00 Constitutional: Yes: No Distress, Calm Neck: Yes: Supple, Other (trach stil very loose) Cardiovascular: Yes: Regular Rate and Rhythm Respiratory: Yes: Regular, Poor Air Entry Gastrointestinal: Yes: Normal Bowel Sounds, Soft, Other (peg tube in place) Musculoskeletal: Yes: WNL Extremities: Yes: WNL Neurological: Yes: Alert, Oriented Psychiatric: Yes: Alert, Oriented Labs: CBC, BMP 02/06/18 10:50 02/06/18 10:50 INR, PTT INR 1.17 (0.82-1.09) H 02/05/18 13:10 Assessment/Plan all cx results noted sever electrolyte abn hypocalcemis confusion lethargy dehydration electrolyte abn plan singh top vanco rest continue current mgmt calcium replacement monitor very closely rest as per primary team
[2018-02-06] MEDS: AA 2.75 %/CALCIUM/LYTES/D7.5W 1,000 ML IV SCH (14:52)
--- NOTE | 2018-02-06 23:46 | CONSULT ---
Consult - text type - Consultation Consultation Note: Patient seen and examined Patient is a 57 year old male with a significant past medical history of 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 He has metastatic disease to the right hip and is usually on a Fentanyl patch (75mcgs) for pain management. He is s/p chemotherapy x 2 weeks ago. states that up until early last fall patient was well, healthy. He then began to have voice hoarseness and was diagnosed with a large laryngeal tumor. He had laryngectomy August 2017 and subsequently had a trach and Peg tube placed. She further states that in the past few months patient was able to ambulate with a rolling walker and was able to make his needs known by either writing or by mouthing his words. Received Rt to rt. hip last week Last few days he has been lethargic and mobility decreased further with increasing weakness Home medications: Epanaid 10mg BID via g. tube Carvedilol 6.25mg BID via g tube for hypertension Oxycodone 15mg q4-q6 prn for severe pain Celebrex 100mg BID via g tube for pain Fentanyl 75mcgs q 72 hrs PAST SURGICAL HISTORY: metastatic laryngeal cancer s/p laryngectomy/ trach placement on August 2017. Social History: Smoking: none reported Alcohol: none reported Drugs: none reported Allergies No Known Allergies Allergy (Verified 02/05/18 04:41) AFVSS GENERAL: Lethargic, , non verbal LUNGS: Breath sounds equal to auscultation, diminished posteriorly HEART: Regular rate and rhythm ABDOMEN: Peg tube present MUSCULOSKELETAL: Normal range of motion at all joints. A/P 57 y/o patient with a significant past medical history of laryngeal cancer in , when he presented with hoarseness of voice. s/p laryngectomy s/p trach/peg placement on August 2017. Per discussion with he has been on carboplatin plus taxol weekly, last dose was 2 weeks ago. He got 4 tweekly doses last week he got 5 days of RT to rt. hip He is being followed by Dr. Russo at [email or web address]. He was brought in to the ED for altered mentation and rigors. He is currently on zosyn empirically 'cultures/CXR negative stage II decub MRI brain pending also with compression fx T12, L4/5. Lytic lesions in rt. acetabulum s/p , arthroplasty last week s/p RT to rt. hip last week will get neuro consult given pathologic compression fx in spine/lower extremity weakness will discuss with primary team
[2018-02-07] MEDS: AA 2.75 %/CALCIUM/LYTES/D7.5W 1,000 ML IV SCH ×4 (00:45→23:53)
[2018-02-07] MEDS: PIPERACILLIN/TAZOB 3.375 GM 3.375 GM in DEXTROSE 5%-WATER - 50 ML IVPB SCH ×2 (02:07→12:48)
[2018-02-07] MEDS: LEVOTHYROXINE NA 100 MCG TABLET (FP) PEG SCH (06:07)
[2018-02-07] MEDS ORDERED: INSULIN (NOVOLOG) ASPART 100 UNITS/ML 10ML VIAL ONE (06:25)
[2018-02-07 07:54] LABS: HEMATOCRIT 24.7 % (35.4-49); HEMOGLOBIN 8.5 GM/dL (11.7-16.9); MCH 32.7 pg (25.7-33.7); MCHC 34.3 g/dl (32.0-35.9); MEAN CELL VOLUME 95.2 fl (80-96); MEAN PLT VOLUME 6.4 fl (7.5-11.1); PLATELET COUNT 277 K/MM3 (134-434); RDW 15.2 % (11.9-15.9); WHITE BLOOD COUNT 3.8 K/mm3 (4.0-10.0)
[2018-02-07 08:16] LABS: CHLORIDE 95 mmol/L (98-107); POTASSIUM 3.6 mmol/L (3.5-5.1); SODIUM 130 mmol/L (136-145)
[2018-02-07 08:22] LABS: ALBUMIN 2.9 g/dl (3.4-5.0); ALK PHOS 167 U/L (45-117); ANION GAP 12 (8-16); BILIRUBIN,TOTAL 0.6 mg/dL (0.2-1.0); BLOOD UREA NITROGEN 6 mg/dL (7-18); CO2 23 mmol/L (21-32); CREATININE 0.6 mg/dL (0.7-1.3); GLUCOSE,RANDOM 137 mg/dL (74-106); MAGNESIUM 2.2 mg/dL (1.8-2.4); SGOT/AST 30 U/L (15-37); SGPT/ALT 31 U/L (12-78)
[2018-02-07 08:48] LABS: CALCIUM 5.2 mg/dL (8.5-10.1)
[2018-02-07 09:48] LABS: PLATELET ESTIMATE ADEQUATE
--- NOTE | 2018-02-07 09:50 | PN ---
Physical Exam: SUBJECTIVE: Patient seen and examined at the bedside. More awake and alert. OBJECTIVE: Brain MRI pending Restart Jevity feeds Continue Climinax x 24 hours until feeds are tolerated Vital Signs Period Temp Pulse Resp BP Sys/Shrestha Pulse Ox Last 24 Hr 97 F-100.0 F 86-104 18-20 99-146/58-76 98-98 GENERAL: More awake, alert today, non verbal 2/2 to his disease HEAD: Laryngectomy EYES: pupils equal and reactive LUNGS: Breath sounds equal to auscultation, diminished but clear HEART: Regular rate and rhythm ABDOMEN: Peg tube present MUSCULOSKELETAL: Normal range of motion at all joints. No bony deformities or tenderness. No CVA tenderness. UPPER EXTREMITIES: thin extremities, no edema LOWER EXTREMITIES: thin extremities, no edema NEUROLOGICAL: Non verbal, restless SKIN: Stage 2 sacral pressure ulcer POA - protect with alleyvn Laboratory Results - last 24 hr 02/06/18 02/06/18 02/06/18 10:50 10:50 12:00 WBC 3.8 L RBC 2.75 L Hgb 8.9 L Hct 26.3 L MCV 95.6 MCH 32.3 MCHC 33.8 RDW 15.5 Plt Count 290 MPV 6.3 L Total Counted Neutrophils % Neutrophils % (Manual) Lymphocytes % Lymphocytes % (Manual) Monocytes % (Manual) Myelocytes % (Man) Metamyelocytes Plasma Cells Platelet Estimate Sodium 133 L Potassium 3.8 Chloride 100 Carbon Dioxide 24 Anion Gap 9 BUN 6 L D Creatinine 0.6 L Creat Clearance w eGFR > 60 POC Glucometer 99 Random Glucose 80 D Lactic Acid Calcium 5.1 L* D Phosphorus 2.6 Magnesium 2.2 Total Bilirubin 0.6 AST 39 H D ALT 35 D Alkaline Phosphatase 200 H D Total Protein 6.2 L Albumin 3.1 L TSH 21.90 H 02/06/18 02/06/18 02/07/18 13:20 18:16 06:05 WBC RBC Hgb Hct MCV MCH MCHC RDW Plt Count MPV Total Counted Neutrophils % Neutrophils % (Manual) Lymphocytes % Lymphocytes % (Manual) Monocytes % (Manual) Myelocytes % (Man) Metamyelocytes Plasma Cells Platelet Estimate Sodium Potassium Chloride Carbon Dioxide Anion Gap BUN Creatinine Creat Clearance w eGFR POC Glucometer 99 141 Random Glucose Lactic Acid 1.2 Calcium Phosphorus Magnesium Total Bilirubin AST ALT Alkaline Phosphatase Total Protein Albumin TSH 02/07/18 02/07/18 06:35 06:35 WBC 3.8 L RBC 2.60 L Hgb 8.5 L Hct 24.7 L MCV 95.2 MCH 32.7 MCHC 34.3 RDW 15.2 Plt Count 277 MPV 6.4 L Total Counted 100 Neutrophils % No Result Required. Neutrophils % (Manual) 63.0 Lymphocytes % No Result Required. Lymphocytes % (Manual) 21.0 Monocytes % (Manual) 10 Myelocytes % (Man) 2 Metamyelocytes 2 D Plasma Cells 2 Platelet Estimate Adequate Sodium 130 L Potassium 3.6 Chloride 95 L Carbon Dioxide 23 Anion Gap 12 BUN 6 L Creatinine 0.6 L Creat Clearance w eGFR > 60 POC Glucometer Random Glucose 137 H D Lactic Acid Calcium 5.2 L* Phosphorus Magnesium 2.2 Total Bilirubin 0.6 AST 30 D ALT 31 Alkaline Phosphatase 167 H Total Protein 6.0 L Albumin 2.9 L TSH Active Medications Generic Name Dose Route Start Last Admin Trade Name Freq PRN Reason Stop Dose Admin Calcium Carbonate/Cholecalciferol 1 tab 02/07/18 10:00 Os-You 500+D - PO BID YUKO Enoxaparin Sodium 40 mg 02/05/18 22:00 02/06/18 10:41 Lovenox - SQ 40 mg DAILY YUKO Administration Piperacillin Sod/Tazobactam 50 mls @ 100 mls/hr 02/06/18 02:00 02/07/18 02:07 Sod 3.375 gm/ Dextrose IVPB 100 mls/hr Q8H-IV YUKO Administration Protocol AA 2.75 %/CALCIUM/LYTES/D7.5W 1,000 mls @ 84 mls/hr 02/06/18 12:45 02/07/18 02:16 Clinimix 2.75%-7.5% Solution IV 84 mls/hr Q12H YUKO Administration Levothyroxine Sodium 100 mcg 02/06/18 09:15 02/07/18 06:07 Synthroid - PEG 100 mcg DAILY@0700 YUKO Administration Pantoprazole Sodium 40 mg 02/06/18 10:00 02/06/18 10:41 Protonix Iv IVPUSH 40 mg DAILY YUKO Administration ASSESSMENT/PLAN: Patient is a 57 year old male with a significant past medical history of 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 He has metastatic disease to the right hip and is usually on a Fentanyl patch (75mcgs) for pain management. He is s/p chemotherapy apx 2 weeks ago. states that up until early last fall patient was well, healthy. He then began to have voice hoarseness and was diagnosed with a large laryngeal tumor. He had his voice box removed August 2017 and subsequently had a trach and Peg tube placed. She reports that her never smoked or drank. She further states that in the past few months patient was able to ambulate with a rolling walker and was able to make his needs known by either writing or by mouthing his words. He gets about 4 cans of Jevity via his peg tube daily but she noticed that he had increased weight loss in the past few months. He was brought in to the ED on for altered mentation and rigors. Imaging: Brain MRI: pending CT abd/pelvis w/o iv contrast: multiple lytic bone lesions with pathologic vertebral body compression fractures are presumably metastatic. (2) a solid left lower lobe pulmonary nodule is new since 04/10/2013 and may be metastatic. ID: Metabolic enchepalopathy secondary to sepsis Sepsis, etiology uncertain Presents to ED with leukopenia, AMS, lactic acidosis and fevers on an already immunocomprised patient Blood and urine cultures pending Started on Vanco and Zosyn Monitor mental status which seems to be improving Oncology: Metastatic Laryngeal cancer with laryngectomy Mets to right hip, chest Ct shows multiple lytic bone lesions with pathologic vertebral body compression fractures are presumably metastatic. A solid left lower lobe pulmonary nodule is new since 04/10/2013 and may be metastatic. Brain MRI pending, Spine MRI to rule out cord compression Followed by oncologist at [facility]: Hypertension, chronic Hold antihypertensives in the setting of sepsis Hypothyroidism: Synthroid increased to 100mcg from 75mcgs 2 weeks ago as per pt Continue Synthroid 100mcgs, elevated TSH noted Muscular/skeletal Severe malnutrition in the context of metastatic laryngeal cancer/loss of fat/ with pressure ulcer - stg 2 Poor intake of Jevity bolus cans at home Start Jevity 1.5 pump feeds slowly (jevity 1.5 20cc/hr - 25 water flush goal rate 56) Continue Clinimax x 24 hours or until tolerating feeds to max dose goal rate Add Prosource BID, Discussed with bioinformatics support specialist Severe electrolyte imbalance in the setting of bony lesions and malnutrition Hypocalcemia corrected at 5.8 - On clinimax - Increased vit C/D supplement - Added Multivitamin, added prosource - Start Jevity tube feeds Hyponatremia, monitor If no improvement on electrolytes with above, may need renal consult Pain Management Given the extent of his disease and improvement of his mentation, will restart fentanyl patch at a lower dose for now with breakthrough morphine May need uptitration Monitor F.E.N. Fluids: IVF, Clinimax Electrolytes: monitor: hypocalcemia corrected at 5.8 started on supplements, added clinimax hyponatremia improving with IVF Nutrition: Hold G tube feeds until ct scan results Prophy: DVT: Lovenox 40mg GI: Protonix IV Disposition: full code Visit type - Emergency Visit Emergency Visit: Yes ED Registration Date: 02/05/18 Care time: The patient presented to the Emergency Department on the above date and was hospitalized for further evaluation of their emergent condition. - New Patient This patient is new to me today: No - Critical Care Critical Care patient: No - Discharge Referral Referred to [facility] No
[2018-02-07] MEDS ORDERED: PT OWN MED DRAWER 7, Y5N ONE (10:27)
[2018-02-07] MEDS: CALCIUM 500MG/VIT-D 200 UNITS COMBO TABLET (FP) PO SCH ×2 (10:30→21:53)
[2018-02-07] MEDS: ENOXAPARIN NA (PORCINE) 40 MG/0.4 ML DISP.SYRIN SQ SCH (10:30)
[2018-02-07] MEDS: PANTOPRAZOLE SODIUM 40 MG VIAL IVPUSH SCH (11:13)
[2018-02-07] MEDS ORDERED: morphine SULFATE 4 MG/ML VIAL IVPUSH PRN (13:13)
[2018-02-07] MEDS ORDERED: FENTANYL PATCH WASTE TD PRN (13:13)
--- NOTE | 2018-02-07 13:19 | CON.NEURO ---
Consult - Alcohol/Substance Use Hx Alcohol Use: No - Smoking History Smoking history: Unknown if ever smoked Have you smoked in the past 12 months: No Aproximately how many cigarettes per day: 0 Home Medications - Allergies Allergies/Adverse Reactions: Allergies Allergy/AdvReac Type Severity Reaction Status Date / Time No Known Allergies Allergy Verified 02/05/18 04:41 - Home Medications Home Medications: Ambulatory Orders Naproxen 250 mg PO BID PRN #15 tablet 07/21/17 Physical Exam-Neuro Vital Signs: Vital Signs Temperature 98.4 F 02/07/18 10:00 Pulse Rate 84 02/07/18 10:00 Respiratory Rate 18 02/07/18 10:00 Blood Pressure 108/70 02/07/18 10:00 O2 Sat by Pulse Oximetry (%) 98 02/06/18 21:00 Labs: CBC, BMP 02/07/18 06:35 02/07/18 06:35 INR, PTT INR 1.17 (0.82-1.09) H 02/05/18 13:10 Assessment/Plan cc rule out cord compression, incontinent HPI 57 year old male history of laryngeal cancer. Patient has trach and peg tube placement. Patient has finished chemo therapy three weeks ago. Patient has been incontinence. Patient has mri done , as he came to hospital for confusion. He has trach paced. He denies any headache. He denies any hemipareiss, seizure or loss fo consiouness. He has right hip mets, and I was asked to evaluate for cord compression. He is being treated for pneumonia Past Medical history as above SH,FH,ROS reviewed in chart Neurological Examination Alert and follow command, he has good eye contact and cooperate in exam He told me his name and he is in hospital No neck stiffness, eomi, pupisl reactive moving all extremity upper extremity grade 2/5 and lower extremity reflex are absent sensation is normal MRI of brain pending Assessment- Metastatic laryngeal cancer. Clinically less likely to be cord compression, Though he has bowel incontinence , I suggest to do mri of whole spine to rule out any cord lesion or conus lesion. Plan- mri of brain is already done suggest to do mri of whole spine woudl follow up after mri of brain
[2018-02-07] MEDS: fentaNYL 25mcg/hr PATCH.TD72 TD SCH (13:38)
--- NOTE | 2018-02-07 13:48 | PN ---
Progress Note, Physician History of Present Illness: stable doing well no new issues - Current Medication List Current Medications: Active Medications Amino Acids (Prosource No Carb Liquid Pkt) 30 ml PO BID@0800,1730 [facility] Calcium Carbonate/Cholecalciferol (Os-You 500+D -) 1 tab PO BID [facility] Last Admin: 02/07/18 10:30 Dose: 1 tab Enoxaparin Sodium (Lovenox -) 40 mg SQ DAILY [facility] Last Admin: 02/07/18 10:30 Dose: 40 mg Fentanyl (Duragesic 25mcg Patch -) 1 patch TD Q72H [facility] Stop: 02/14/18 13:13 Last Admin: 02/07/18 13:38 Dose: 1 patch Piperacillin Sod/Tazobactam (Sod 3.375 gm/ Dextrose) 50 mls @ 100 mls/hr IVPB Q8H-IV [facility] PRN Reason: Protocol Last Admin: 02/07/18 12:48 Dose: 100 mls/hr AA 2.75 %/CALCIUM/LYTES/D7.5W (Clinimix 2.75%-7.5% Solution) 1,000 mls @ 84 mls /hr IV Q12H [facility] Last Admin: 02/07/18 02:16 Dose: 84 mls/hr Levothyroxine Sodium (Synthroid -) 100 mcg PEG DAILY@0700 [facility] Last Admin: 02/07/18 06:07 Dose: 100 mcg Miscellaneous (Duragesic Patch Waste) 1 each TD PRN PRN PRN Reason: PAIN Morphine Sulfate (Morphine Sulfate) 1 mg IVPUSH Q6H PRN PRN Reason: PAIN LEVEL 7 - 10 Multivitamins/Minerals (Infuvite Adult -) 10 ml IV Q24H [facility] Pantoprazole Sodium (Protonix Iv) 40 mg IVPUSH DAILY [facility] Last Admin: 02/07/18 11:13 Dose: 40 mg - Objective Vital Signs: Vital Signs Temperature 98.4 F 02/07/18 10:00 Pulse Rate 84 02/07/18 10:00 Respiratory Rate 18 02/07/18 10:00 Blood Pressure 108/70 02/07/18 10:00 O2 Sat by Pulse Oximetry (%) 98 02/06/18 21:00 Constitutional: Yes: No Distress, Calm Neck: Yes: Other (trach in place) Respiratory: Yes: Regular, CTA Bilaterally Gastrointestinal: Yes: Normal Bowel Sounds, Soft, Other (peg in place) Musculoskeletal: Yes: WNL Extremities: Yes: WNL Neurological: Yes: Alert, Oriented Psychiatric: Yes: Alert Labs: CBC, BMP 02/07/18 06:35 02/07/18 06:35 INR, PTT INR 1.17 (0.82-1.09) H 02/05/18 13:10 - ....Imaging MRI: Report Reviewed, Image Reviewed Assessment/Plan all cx results noted sever electrolyte abn hypocalcemis confusion lethargy dehydration electrolyte abn plan will stop abx and watch the patient ent for trach management nutrition rest as per primary team
[2018-02-07] MEDS ORDERED: PNEUMOC 13-VAL CONJ-DIP CRM/PF 0.5 ML DISP.SYRIN IM ONE (15:09)
[2018-02-07] MEDS: MULTIVIT INJ. ADULT COMBO WITH VIT K 1 COMBO 10 ML VIAL IV SCH (15:52)
--- NOTE | 2018-02-07 16:49 | PN ---
Progress Note (short form) - Note Progress Note: Patient seen and examined Pt following commands, but pt at baseline is reportedly non-verbal. ROS limited by pts baseline condition O/E: General: NAD HEENT: NCAT Cor: RRR Lungs: CTA b/l Abdomen: +PEG tube site is normal LE: No CCE Neuro: Alert and awake, able to follow commands. Last Vital Signs Temp Pulse Resp BP Pulse Ox 99.6 F 85 18 131/72 98 02/07/18 14:07 02/07/18 14:07 02/07/18 14:07 02/07/18 14:07 02/06/18 21:00 CBC, BMP 02/07/18 06:35 02/07/18 06:35 Current Medications Generic Name Dose Route Start Last Admin Trade Name Freq PRN Reason Stop Dose Admin Amino Acids 30 ml 02/07/18 17:30 Prosource No Carb Liquid Pkt PO BID@0800,1730 YUKO Calcium Carbonate/Cholecalciferol 1 tab 02/07/18 10:00 02/07/18 10:30 Os-You 500+D - PO 1 tab BID YUKO Administration Enoxaparin Sodium 40 mg 02/05/18 22:00 02/07/18 10:30 Lovenox - SQ 40 mg DAILY YUKO Administration Fentanyl 1 patch 02/07/18 13:15 02/07/18 13:38 Duragesic 25mcg Patch - TD 02/14/18 13:13 1 patch Q72H YUKO Administration AA 2.75 %/CALCIUM/LYTES/D7.5W 1,000 mls @ 84 mls/hr 02/06/18 12:45 02/07/18 15:52 Clinimix 2.75%-7.5% Solution IV 84 mls/hr Q12H YUKO Administration Levothyroxine Sodium 100 mcg 02/06/18 09:15 02/07/18 06:07 Synthroid - PEG 100 mcg DAILY@0700 YUKO Administration Miscellaneous 1 each 02/07/18 13:13 Duragesic Patch Waste TD PRN PRN PAIN Morphine Sulfate 1 mg 02/07/18 13:13 Morphine Sulfate IVPUSH Q6H PRN PAIN LEVEL 7 - 10 Multivitamins/Minerals 10 ml 02/07/18 15:00 02/07/18 15:52 Infuvite Adult - IV 10 ml Q24H YUKO Administration Pantoprazole Sodium 40 mg 02/06/18 10:00 02/07/18 11:13 Protonix Iv IVPUSH 40 mg DAILY YUKO Administration metastatic Laryngeal carcinoma. also with compression fx T12, L4/5. Lytic lesions in rt. acetabulum s/p , arthroplasty last week s/p RT to rt. hip last week f.u MR studies appreciate neuro c/s AMS ?now back to baseline. supportive care pain control phone call placed to
[2018-02-07] MEDS: AMINO ACIDS/PROTEIN HYDROLYS 30 ML LIQUID.PKT PO SCH (18:45)
[2018-02-08] MEDS: AA 2.75 %/CALCIUM/LYTES/D7.5W 1,000 ML IV SCH (03:51)
[2018-02-08] MEDS: LEVOTHYROXINE NA 100 MCG TABLET (FP) PEG SCH (06:20)
[2018-02-08] MEDS: AMINO ACIDS/PROTEIN HYDROLYS 30 ML LIQUID.PKT PO SCH (08:39)
[2018-02-08] MEDS: PANTOPRAZOLE SODIUM 40 MG VIAL IVPUSH SCH (10:08)
[2018-02-08] MEDS: CALCIUM 500MG/VIT-D 200 UNITS COMBO TABLET (FP) PO SCH ×2 (10:08→21:55)
[2018-02-08] MEDS: ENOXAPARIN NA (PORCINE) 40 MG/0.4 ML DISP.SYRIN SQ SCH (10:08)
[2018-02-08 10:54] LABS: HEMATOCRIT 25.9 % (35.4-49); HEMOGLOBIN 8.9 GM/dL (11.7-16.9); MCH 32.6 pg (25.7-33.7); MCHC 34.1 g/dl (32.0-35.9); MEAN CELL VOLUME 95.5 fl (80-96); MEAN PLT VOLUME 6.3 fl (7.5-11.1); PLATELET COUNT 317 K/MM3 (134-434); RBC 2.72 M/mm3 (4.00-5.60); RDW 15.3 % (11.9-15.9); WHITE BLOOD COUNT 4.4 K/mm3 (4.0-10.0)
--- NOTE | 2018-02-08 11:04 | PN ---
Physical Exam: SUBJECTIVE: Patient seen and examined. He is non verbal, answers via nodding and shaking head. Denies chills, pain, sob. OBJECTIVE: Vital Signs Period Temp Pulse Resp BP Sys/Shrestha Pulse Ox Last 24 Hr 98.1 F-99.9 F 85-90 18-20 110-133/57-72 99 PE Neuro: alert, awake, cn 2-12intact HEENT: laryngoscope intake no erythema Pulm: CTAB CV: s1 s2 rrr Abd: + peg tube cdi, no distention, + bs Ext: warm, no le edema Laboratory Results - last 24 hr 02/08/18 02/08/18 06:29 10:28 WBC 4.4 RBC 2.72 L Hgb 8.9 L Hct 25.9 L MCV 95.5 MCH 32.6 MCHC 34.1 RDW 15.3 Plt Count 317 MPV 6.3 L Neutrophils % No Result Required. Lymphocytes % No Result Required. POC Glucometer 116 Active Medications Generic Name Dose Route Start Last Admin Trade Name Freq PRN Reason Stop Dose Admin Amino Acids 30 ml 02/07/18 17:30 02/08/18 08:39 Prosource No Carb Liquid Pkt PO 30 ml BID@0800,1730 YUKO Administration Calcium Carbonate/Cholecalciferol 1 tab 02/07/18 10:00 02/08/18 10:08 Os-You 500+D - PO 1 tab BID YUKO Administration Enoxaparin Sodium 40 mg 02/05/18 22:00 02/08/18 10:08 Lovenox - SQ 40 mg DAILY YUKO Administration Fentanyl 1 patch 02/07/18 13:15 02/07/18 13:38 Duragesic 25mcg Patch - TD 02/14/18 13:13 1 patch Q72H YUKO Administration AA 2.75 %/CALCIUM/LYTES/D7.5W 1,000 mls @ 84 mls/hr 02/06/18 12:45 02/08/18 03:51 Clinimix 2.75%-7.5% Solution IV 84 mls/hr Q12H YUKO Administration Levothyroxine Sodium 100 mcg 02/06/18 09:15 02/08/18 06:20 Synthroid - PEG 100 mcg DAILY@0700 YUKO Administration Miscellaneous 1 each 02/07/18 13:13 Duragesic Patch Waste TD PRN PRN PAIN Morphine Sulfate 1 mg 02/07/18 13:13 Morphine Sulfate IVPUSH Q6H PRN PAIN LEVEL 7 - 10 Multivitamins/Minerals 10 ml 02/07/18 15:00 02/07/18 15:52 Infuvite Adult - IV 10 ml Q24H YUKO Administration Pantoprazole Sodium 40 mg 02/06/18 10:00 02/08/18 10:08 Protonix Iv IVPUSH 40 mg DAILY YUKO Administration Imaging: CT abd/pelvis w/o iv contrast: multiple lytic bone lesions with pathologic vertebral body compression fractures are presumably metastatic. (2) a solid left lower lobe pulmonary nodule is new since 04/10/2013 and may be metastatic. Assessment: 57 year old male with pmhx of laryngeal cancer s/p trach placement and voice box removal on August 2017 with metastases to right hip, s/p chemo 2 weeks ago. He has metastatic disease to the right hip and is usually on a Fentanyl patch (75mcgs) for pain management. He is s/p chemotherapy apx 2 weeks ago admitted with AMS and rigors. Plan: 1. Metastatic laryngeal ca s/p laryngectomy - Brain MRI shows left lateral lesion 10mmx5, will obtain MRI with contrast for further eval - MRI spine, abdomen ordered - Oncology onboard here, outpt oncologist at [facility] - Maintain fentanyl patch - Neurosurgery consulted 2. Metabolic encephalopathy - Resolved 3. Sepsis - Empiric abx stopped, stable - Unknown source 4. Hypothyroidism - Increased synthroid to 100mcg 2 weeks ago per - Continue current dose, check TSH in 1 month 5. Severe malnutrition - With stage II pressure ulcer - Poor PO intake - Continue jevity TF here - Start prosource 6. Hyponatremia - Follow up AM labs 7. Hypocalcemia - Corrected 6.08 - Continue supplementation - Give 1gm ca gulconate 8. DVT ppx - Lovenox 40mg sq Visit type - Emergency Visit Emergency Visit: Yes ED Registration Date: 02/05/18 Care time: The patient presented to the Emergency Department on the above date and was hospitalized for further evaluation of their emergent condition. - New Patient This patient is new to me today: Yes Date on this admission: 02/08/18 - Critical Care Critical Care patient: No
[2018-02-08 11:06] LABS: ALBUMIN 2.6 g/dl (3.4-5.0); ANION GAP 8 (8-16); BILIRUBIN,TOTAL 0.4 mg/dL (0.2-1.0); BLOOD UREA NITROGEN 7 mg/dL (7-18); CHLORIDE 94 mmol/L (98-107); CO2 24 mmol/L (21-32); CREATININE 0.5 mg/dL (0.7-1.3); GLUCOSE,RANDOM 107 mg/dL (74-106); MAGNESIUM 2.1 mg/dL (1.8-2.4); SGOT/AST 23 U/L (15-37); SGPT/ALT 25 U/L (12-78); SODIUM 126 mmol/L (136-145)
[2018-02-08 11:07] LABS: ALK PHOS 157 U/L (45-117); TOT PROT 5.8 g/dl (6.4-8.2)
[2018-02-08 11:25] LABS: CALCIUM 5.3 mg/dL (8.5-10.1)
[2018-02-08 11:28] LABS: PLATELET ESTIMATE ADEQUATE
--- NOTE | 2018-02-08 11:56 | PN ---
Progress Note, Physician History of Present Illness: stable no new issues - Current Medication List Current Medications: Active Medications Calcium Carbonate/Cholecalciferol (Os-You 500+D -) 1 tab PO BID [facility] Last Admin: 02/08/18 10:08 Dose: 1 tab Calcium Gluconate (Calcium Gluconate 10% -) 1,000 mg IVPB ONCE ONE Stop: 02/08/18 11:22 Enoxaparin Sodium (Lovenox -) 40 mg SQ DAILY [facility] Last Admin: 02/08/18 10:08 Dose: 40 mg Fentanyl (Duragesic 25mcg Patch -) 1 patch TD Q72H [facility] Stop: 02/14/18 13:13 Last Admin: 02/07/18 13:38 Dose: 1 patch AA 2.75 %/CALCIUM/LYTES/D7.5W (Clinimix 2.75%-7.5% Solution) 1,000 mls @ 84 mls /hr IV Q12H [facility] Last Admin: 02/08/18 03:51 Dose: 84 mls/hr Levothyroxine Sodium (Synthroid -) 100 mcg PEG DAILY@0700 [facility] Last Admin: 02/08/18 06:20 Dose: 100 mcg Miscellaneous (Duragesic Patch Waste) 1 each TD PRN PRN PRN Reason: PAIN Morphine Sulfate (Morphine Sulfate) 1 mg IVPUSH Q6H PRN PRN Reason: PAIN LEVEL 7 - 10 Multivitamins/Minerals (Infuvite Adult -) 10 ml IV Q24H [facility] Last Admin: 02/07/18 15:52 Dose: 10 ml - Objective Vital Signs: Vital Signs Temperature 98.9 F 02/08/18 10:00 Pulse Rate 100 H 02/08/18 10:00 Respiratory Rate 20 02/08/18 10:00 Blood Pressure 107/70 02/08/18 10:00 O2 Sat by Pulse Oximetry (%) 99 02/07/18 21:00 Constitutional: Yes: No Distress, Calm Cardiovascular: Yes: Regular Rate and Rhythm Respiratory: Yes: Regular, CTA Bilaterally, Other (trach in place) Gastrointestinal: Yes: Normal Bowel Sounds, Soft, Other (peg in place) Musculoskeletal: Yes: WNL Extremities: Yes: WNL Neurological: Yes: Alert, Oriented Psychiatric: Yes: Alert, Oriented Labs: CBC, BMP 02/08/18 10:28 02/08/18 10:28 INR, PTT INR 1.17 (0.82-1.09) H 02/05/18 13:10 Assessment/Plan all cx results noted sever electrolyte abn hypocalcemis confusion lethargy dehydration electrolyte abn plan stable off of abx continue to monitor rest as per the teams awaiting for ent to see the patient
[2018-02-08] MEDS ORDERED: CALCIUM GLUCONATE 10% - 1,000 MG/10 ML VIAL IVPB ONE (12:15)
--- NOTE | 2018-02-08 13:13 | CONSULT ---
Consult Consult Specialty:: Nephrology Reason for Consultation:: hyponatremia and hypocalcemia - History of Present Illness Chief Complaint: change in mental status and rigors History of Present Illness: Pt is a 57 year old male with pmhx of laryngeal cancer on chemo who presents to the ER initially with rigors and a change in mental status. He is on chemotherapy and the last treatment was about 2 weeks ago. He was admitted and treated for sepsis. He was found to have worsening hyponatremia and I was called to evaluate. He was on tube feeds and ppn feeding. He is awake and more interactive. He is unable to give history. Chart was reviewed. - History Source History Provided By: Medical Record - Past Medical History Heme/Onc: Yes: Other (laryngeal cancer with mets) Endocrine: Yes: Hypothyroidism - Past Surgical History Additional Surgical History: trache - Alcohol/Substance Use Hx Alcohol Use: No - Smoking History Smoking history: Unknown if ever smoked Have you smoked in the past 12 months: No Aproximately how many cigarettes per day: 0 Home Medications - Allergies Allergies/Adverse Reactions: Allergies Allergy/AdvReac Type Severity Reaction Status Date / Time No Known Allergies Allergy Verified 02/05/18 04:41 - Home Medications Home Medications: Ambulatory Orders Naproxen 250 mg PO BID PRN #15 tablet 07/21/17 Family Disease History - Family Disease History Family History: Denies Review of Systems - Review of Systems Constitutional: reports: Chills Eyes: reports: No Symptoms HENT: reports: Other (trache) Neck: reports: Other (trache) Gastrointestinal: reports: No Symptoms Genitourinary: reports: No Symptoms Integumentary: reports: No Symptoms Neurological: reports: Change in LOC Endocrine: reports: No Symptoms Hematology/Lymphatic: reports: No Symptoms Psychiatric: reports: No Symptoms Physical Exam Vital Signs: Vital Signs Temperature 98.9 F 02/08/18 10:00 Pulse Rate 100 H 02/08/18 10:00 Respiratory Rate 20 02/08/18 10:00 Blood Pressure 107/70 02/08/18 10:00 O2 Sat by Pulse Oximetry (%) 98 02/08/18 09:00 Constitutional: Yes: Calm Eyes: Yes: Conjunctiva Clear HENT: Yes: Other (trache) Cardiovascular: Yes: S1, S2 Respiratory: Yes: CTA Bilaterally Gastrointestinal: Yes: Soft Renal/: Yes: Incontinence Musculoskeletal: Yes: Muscle Weakness Edema: No Neurological: Yes: Other (awake) Labs: CBC, BMP 02/08/18 10:28 02/08/18 10:28 Laboratory Tests 04/08/13 07/20/17 02/05/18 07:35 23:48 05:00 WBC Hgb Sodium 140 139 130 L Potassium Chloride Carbon Dioxide Anion Gap BUN Creatinine Calcium Ur Specific [place] 02/05/18 02/06/18 02/07/18 05:00 10:50 06:35 WBC Hgb 8.5 L Sodium 133 L Potassium Chloride Carbon Dioxide Anion Gap BUN Creatinine Calcium Ur Specific [place] 1.021 02/07/18 02/08/18 02/08/18 06:35 10:28 10:28 WBC 4.4 Hgb 8.9 L Sodium 130 L 126 L Potassium 4.0 Chloride 94 L Carbon Dioxide Anion Gap BUN Creatinine 0.5 L Calcium 5.3 L* Ur Specific [place] 02/08/18 16:00 WBC Hgb Sodium 127 L Potassium 4.8 Chloride 92 L Carbon Dioxide 25 Anion Gap 10 BUN 9 D Creatinine 0.5 L Calcium 5.8 L* Ur Specific [place] Imaging - Results Chest X-ray: Report Reviewed Cat Scan: Report Reviewed Problem List - Problems (1) Hyponatremia Code(s): E87.1 - HYPO-OSMOLALITY AND HYPONATREMIA (2) Hypocalcemia Code(s): E83.51 - HYPOCALCEMIA (3) Sepsis Code(s): A41.9 - SEPSIS, UNSPECIFIED ORGANISM Qualifiers: Sepsis type: sepsis due to unspecified organism Qualified Code(s): A41.9 - Sepsis, unspecified organism (4) Status post laryngectomy Code(s): Z90.02 - ACQUIRED ABSENCE OF LARYNX Assessment/Plan Current Medications Generic Name Dose Route Start Last Admin Trade Name Freq PRN Reason Stop Dose Admin Calcium Carbonate/Cholecalciferol 1 tab 02/07/18 10:00 02/08/18 10:08 Os-You 500+D - PO 1 tab BID YUKO Administration Enoxaparin Sodium 40 mg 02/05/18 22:00 02/08/18 10:08 Lovenox - SQ 40 mg DAILY YUKO Administration Fentanyl 1 patch 02/07/18 13:15 02/07/18 13:38 Duragesic 25mcg Patch - TD 02/14/18 13:13 1 patch Q72H YUKO Administration Levothyroxine Sodium 100 mcg 02/06/18 09:15 02/08/18 06:20 Synthroid - PEG 100 mcg DAILY@0700 YUKO Administration Miscellaneous 1 each 02/07/18 13:13 Duragesic Patch Waste TD PRN PRN PAIN Morphine Sulfate 1 mg 02/07/18 13:13 Morphine Sulfate IVPUSH Q6H PRN PAIN LEVEL 7 - 10 Multivitamins/Minerals 10 ml 02/07/18 15:00 02/08/18 17:45 Infuvite Adult - IV Not Given Q24H [facility] Impression 1. hyponatremia 2. hypocalcemia 3. laryngeal cancer 4. s/p trache 5. hypothyroidism Plan - ppn stopped - hold free water with feeds - check plasma and urine osm - check urine sodium - check tsh and cortisol - repeat labs in am - replace calcium - check pth level - will follow - discussed with medical team
--- NOTE | 2018-02-08 13:34 | CON.ENT ---
Consult Consult Specialty:: ENT Reason for Consultation:: tracheotomy evaluation - History of Present Illness Chief Complaint: trach problem History of Present Illness: 57 yo M with hx laryngeal problems, by report had laryngectomy August 2017, has laryngectomy tube and gastrostomy tube. admitted for altered mental status and sepsis, per records pt has had chemotherapy and has metastatic disease to right hip. He is awake and alert. laryngectomy tube has been displaced out of the tracheostoma. pt denies difficulty breathing. pt did have a bilateral type 1 thyroplasty surgery in June 2016 with the goal of improving his voice. - History Source History Provided By: Patient, Medical Record Limitations to Obtaining History: Other (hx laryngectomy, cannot vocalize) - Past Surgical History Additional Surgical History: laryngectomy - Alcohol/Substance Use Hx Alcohol Use: No - Smoking History Smoking history: Unknown if ever smoked Have you smoked in the past 12 months: No Aproximately how many cigarettes per day: 0 Home Medications - Allergies Allergies/Adverse Reactions: Allergies Allergy/AdvReac Type Severity Reaction Status Date / Time No Known Allergies Allergy Verified 02/05/18 04:41 - Home Medications Home Medications: Ambulatory Orders Naproxen 250 mg PO BID PRN #15 tablet 07/21/17 Family Disease History - Family Disease History Family History: Unable to Obtain Physical Exam-ENT Vital Signs: Vital Signs Temperature 98.9 F 02/08/18 10:00 Pulse Rate 100 H 02/08/18 10:00 Respiratory Rate 20 02/08/18 10:00 Blood Pressure 107/70 02/08/18 10:00 O2 Sat by Pulse Oximetry (%) 98 02/08/18 09:00 Constitutional: Yes: No Distress, Calm, Thin Head: Yes: WNL Face: Yes: WNL Eyes: Yes: WNL Nose: Yes: WNL Oral/Pharynx: Yes: WNL Outer Ear: Yes: WNL Neck: Yes: Other (s/p laryngectomy, no palpable laryngeal structure, no mass, + tracheostoma , silicone tracheostomal tube ssecured to neck but has been entirely displaced out of stoma.) Respiratory: Yes: Other (tracheobronchoscopy: stoma clean, no lesions, trachea shows no lesion, farzaneh sharp, right and left mainstem bronchi unremarkable. no purulence or blood) Imaging - Results Chest X-ray: Report Reviewed, Image Reviewed Cat Scan: Report Reviewed MRI: Report Reviewed Problem List - Problems (1) Status post laryngectomy Assessment/Plan: pt is s/p laryngectomy, performed some time in the last 10 months. Performed in [facility], exact hospital not determined (pt states it was not [facility] or [facility]) records from that surgery and pathology not available. Pt affirms that cancer was found. Pt was seen by Dr. Lionel Price of [facility] on 04-13-17, There was no tumor seen in the larynx and patient had bilateral vocal cord paralysis. there was spreading of the posterior commisure, a CT scan was ordered. the possibility of a cricoid ring mass was considered. Presently patient is s/p laryngectomy, the silicone laryngectomy tube is displaced out of the stoma. This was repositioned, and the securing strap was moved more inferiorly around the neck to hold the tube in place. By report, this tends to migrate out of the stoma, so the position of the tube should be checked several times daily. It is safe to reposition the tube back inferiorly into the stoma. It would be helpful to obtain full records of his laryngeal surgery and care after the 04-13-17 records that are available. Thank you for consultation, Shay Huerta MD FACS Code(s): Z90.02 - ACQUIRED ABSENCE OF LARYNX (2) Sepsis Code(s): A41.9 - SEPSIS, UNSPECIFIED ORGANISM Qualifiers: Sepsis type: sepsis due to unspecified organism Qualified Code(s): A41.9 - Sepsis, unspecified organism (3) Leg pain Code(s): M79.606 - PAIN IN LEG, UNSPECIFIED Qualifiers: Laterality: right Qualified Code(s): M79.604 - Pain in right leg
[2018-02-08] MEDS ORDERED: CALCITRIOL 1 MCG/ML BOT PEG ONE (15:15)
--- NOTE | 2018-02-08 15:18 | PN ---
Progress Note (short form) - Note Progress Note: NEUROSURGERY CONSULT DICTATED H/o 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 + metastatic disease to the right hip. He is s/p chemotherapy 2-3 weeks ago. Family reports that he never smoked or drank. Patient was able to ambulate with a rolling walker. He gets about 4 cans of Jevity via his peg tube daily but she noticed that he had increased weight loss. Pt denies H/A or N/V, or sz. Pt denies increasing weakness. Denies F/C. 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
[2018-02-08] MEDS ORDERED: CALCITRIOL 0.25 MCG CAPSULE (FP) PO ONE (15:45)
[2018-02-08 17:11] LABS: ANION GAP 10 (8-16); BLOOD UREA NITROGEN 9 mg/dL (7-18); CHLORIDE 92 mmol/L (98-107); CO2 25 mmol/L (21-32); CREATININE 0.5 mg/dL (0.7-1.3); GLUCOSE,RANDOM 102 mg/dL (74-106); POTASSIUM 4.8 mmol/L (3.5-5.1); SODIUM 127 mmol/L (136-145)
[2018-02-08 17:13] LABS: CALCIUM 5.8 mg/dL (8.5-10.1)
[2018-02-08] MEDS: MULTIVIT INJ. ADULT COMBO WITH VIT K 1 COMBO 10 ML VIAL IV SCH (17:45)
--- NOTE | 2018-02-08 18:14 | PN ---
Progress Note (short form) - Note Progress Note: 57 year old male history of laryngeal cancer. Patient has trach and peg tube placement. Patient has finished chemo therapy three weeks ago. Patient has been incontinence. Initially he came for confusion, which is resolved and now he is back to baseline he is waiting for whole mri of spine and mri of brain without contrast done. There is small lesion lateral to ventricle, neurosurgery consult appreciated. Neurological Examination Alert and follow command, he has good eye contact and cooperate in exam He told me his name and he is in hospital, he could tell what date is today No neck stiffness, eomi, pupisl reactive moving all extremity reflex are normal in upper extremity and lower extremity diminisehd sensation is normal MRI of brain and neurosurgery consult appreciated Assessment- Metastatic laryngeal cancer. 2. rule out cord compression, waiting for mri of whole spine 3. mri of brain showed a small lesion lateral to ventricle, waiting for mri of brain with contrast Clinically he has been improved, and thinks, he is back to his baseline. Thanking you so much Volodymyr Ochoa MD
[2018-02-09] MEDS: LEVOTHYROXINE NA 100 MCG TABLET (FP) PEG SCH (06:32)
--- NOTE | 2018-02-09 07:38 | CONS ---
DATE OF CONSULTATION: DATE OF DICTATION: 02/08/2018 l REQUESTING PROVIDER: ESTEFANI Adams KITCHEN FOOD SERVER: Taran Chanel MD, Neurosurgery CHIEF COMPLAINT: Left head of caudate lesion, with history of laryngeal cancer. HISTORY OF PRESENT ILLNESS: The patient is a 57-year-old left-handed male with history of laryngeal cancer, status post resection and tracheostomy in August 2007, followed by chemotherapy, who was found subsequently to have metastatic right hip disease. He is status post chemotherapy about 2 to 3 weeks ago. The patient and his family reported that he never smoked in the past, nor did he drink. He was at baseline able to ambulate with a rolling walker. He is on tube feeds with a G-tube. Presently he denies any headache, nausea, vomiting or seizure activity. He denies increasing weakness and has no numbness or tingling. He denies any fever or chills. PAST MEDICAL HISTORY: Metastatic laryngeal cancer to the right hip. CURRENT MEDICATIONS: Duragesic patch, Lovenox, multivitamins, fentanyl patch, morphine, calcium carbonate, and levothyroxine. ALLERGIES: There is no known drug allergy. FAMILY HISTORY: Noncontributory. SOCIAL HISTORY: He does not smoke or drink. He lives at home with his family. He does not work. REVIEW OF SYSTEMS: Otherwise negative for other major constitutional, head and neck, cardiovascular, pulmonary, gastrointestinal, genitourinary, endocrinological, neurological or psychological problems. PHYSICAL EXAMINATION: General: He is awake and alert. He is not in acute distress. HEENT: Examination shows him to be normocephalic, atraumatic, and anicteric. Neck: Tracheostomy anteriorly. Heart: Coronary examination demonstrated a regular rhythm, without a murmur. Respiratory: Lungs are clear bilaterally. Abdomen: Benign, with a G-tube in place. Extremities: Examination showed no signs DVT. Neurologic: He is awake and alert. He follows commands. He is not able to speak, but appears to fully understand what is going on. Cranial nerve examination is intact II through XII. Motor examination shows 4+/5 strength in bilateral upper and lower extremities, except the right iliopsoas which is 4, limited by pain. Sensory examination is intact to light touch. Deep tendon reflexes are hyporeflexic throughout. There is no pathological long tract sign. DIAGNOSTIC STUDIES: Laboratory examination showed a white blood cell count of 4.4, hemoglobin 8.9; platelet count 317,000. INR 1.17, PTT 27.4. Serum sodium 126, potassium 4.0, BUN 7, creatinine 0.5, calcium 5.3, glucose 107. Urinalysis shows 1 WBC and 3 RBCs; there is trace ketone. Urine culture is negative, as if blood culture after [address] scan of the head from this admission demonstrated no acute bleed or fracture. MRI of the brain was compared to a prior MRI from February 2017. There is mild periventricular small vessel disease. There is also a iso/hypointense lesion associated with the head of the caudate. There is no associated edema or significant mass effect. There is no hydrocephalus. These imaging findings do not appear much changed from prior MRI. IMPRESSION: 1. 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 2. History of laryngeal cancer with metastasis to the right hip, status post chemotherapy and laryngectomy/tracheostomy. 3. Hypothyroidism. 4. Hyponatremia. RECOMMENDATIONS: The patient presents with reported recent weight loss as well as some abdominal distention. His neurologic examination is nonfocal at this time and it appears to be at baseline. His gait is not tested at this time because of his pain. MRI of the brain as well as CT scan demonstrated a possible left-sided lateral ventricular wall lesion near the head of the caudate. There is no associated edema or significant mass effect. It was also present on a prior imaging study from February 2017. MRI with the brain with gadolinium is recommended to rule out an enhancing lesion. If this lesion does not enhance, this would most likely be a subependymoma. This lesion is less likely a metastatic tumor or glioma given that it has not changed much in about 1 year. The above was discussed with the patient at bedside. Further recommendations will be made upon the availability of the MRI with contrast study. The patient should continue to be monitored for his hyponatremia. TARAN CHANEL M.D. ARLEEN/[id number] MTDD
--- NOTE | 2018-02-09 08:49 | PN ---
Progress Note (short form) - Note Progress Note: NEUROSURGERY Denies H/A or N/V, sz, increasing weakness. No F/C. 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
[2018-02-09] MEDS: AA 2.75 %/CALCIUM/LYTES/D7.5W 1,000 ML IV SCH (09:05)
--- NOTE | 2018-02-09 09:45 | PN ---
Physical Exam: SUBJECTIVE: Patient seen and examined at bedside. present. OBJECTIVE: Vital Signs Period Temp Pulse Resp BP Sys/Shrestha Pulse Ox Last 24 Hr 98.2 F-100.0 F 97-104 17-22 99-107/47-70 98 GENERAL: The patient is awake, alert, and fully oriented, in no acute distress. ENT: Trach collar LUNGS: CTA HEART: Regular rate and rhythm, S1, S2 ABDOMEN: Soft, nontender, nondistended, normoactive bowel sounds; + PEG; surrounding skin dry, intact EXTREMITIES: 2+ pulses, warm, well-perfused, no edema, no calf tenderness NEUROLOGICAL: Cranial nerves II through XII grossly intact. Laboratory Results - last 24 hr 02/08/18 02/08/18 02/08/18 10:28 10:28 11:33 WBC 4.4 RBC 2.72 L Hgb 8.9 L Hct 25.9 L MCV 95.5 MCH 32.6 MCHC 34.1 RDW 15.3 Plt Count 317 MPV 6.3 L Total Counted 100 Neutrophils % No Result Required. Neutrophils % (Manual) 60.0 Band Neutrophils % 4.0 Lymphocytes % No Result Required. Lymphocytes % (Manual) 21.0 Monocytes % (Manual) 14 H Hypochromia 1+ Platelet Estimate Adequate Platelet Comment No clumping noted Polychromasia 1+ Sodium 126 L Potassium 4.0 Chloride 94 L Carbon Dioxide 24 Anion Gap 8 BUN 7 Creatinine 0.5 L Creat Clearance w eGFR > 60 POC Glucometer 119 Random Glucose 107 H D Calcium 5.3 L* Magnesium 2.1 Total Bilirubin 0.4 D AST 23 D ALT 25 Alkaline Phosphatase 157 H Total Protein 5.8 L Albumin 2.6 L TSH Urine Osmolality Ur Random Sodium Ur Random Potassium Ur Random Chloride 02/08/18 02/09/18 02/09/18 16:00 02:30 02:30 WBC RBC Hgb Hct MCV MCH MCHC RDW Plt Count MPV Total Counted Neutrophils % Neutrophils % (Manual) Band Neutrophils % Lymphocytes % Lymphocytes % (Manual) Monocytes % (Manual) Hypochromia Platelet Estimate Platelet Comment Polychromasia Sodium 127 L Potassium 4.8 Chloride 92 L Carbon Dioxide 25 Anion Gap 10 BUN 9 D Creatinine 0.5 L Creat Clearance w eGFR POC Glucometer Random Glucose 102 Calcium 5.8 L* Magnesium Total Bilirubin AST ALT Alkaline Phosphatase Total Protein Albumin TSH Urine Osmolality 485 Ur Random Sodium 47 Ur Random Potassium 20.1 Ur Random Chloride 46 02/09/18 07:25 WBC RBC Hgb Hct MCV MCH MCHC RDW Plt Count MPV Total Counted Neutrophils % Neutrophils % (Manual) Band Neutrophils % Lymphocytes % Lymphocytes % (Manual) Monocytes % (Manual) Hypochromia Platelet Estimate Platelet Comment Polychromasia Sodium Potassium Chloride Carbon Dioxide Anion Gap BUN Creatinine Creat Clearance w eGFR POC Glucometer Random Glucose Calcium Magnesium Total Bilirubin AST ALT Alkaline Phosphatase Total Protein Albumin TSH 23.00 H D Urine Osmolality Ur Random Sodium Ur Random Potassium Ur Random Chloride Active Medications Generic Name Dose Route Start Last Admin Trade Name Freq PRN Reason Stop Dose Admin Calcium Carbonate/Cholecalciferol 1 tab 02/07/18 10:00 02/08/18 21:55 Os-You 500+D - PO 1 tab BID YUKO Administration Enoxaparin Sodium 40 mg 02/05/18 22:00 02/08/18 10:08 Lovenox - SQ 40 mg DAILY YUKO Administration Fentanyl 1 patch 02/07/18 13:15 02/07/18 13:38 Duragesic 25mcg Patch - TD 02/14/18 13:13 1 patch Q72H YUKO Administration Levothyroxine Sodium 100 mcg 02/06/18 09:15 02/09/18 06:32 Synthroid - PEG 100 mcg DAILY@0700 YUKO Administration Miscellaneous 1 each 02/07/18 13:13 Duragesic Patch Waste TD PRN PRN PAIN Morphine Sulfate 1 mg 02/07/18 13:13 Morphine Sulfate IVPUSH Q6H PRN PAIN LEVEL 7 - 10 02/05 CT head: no acute process 02/06 CTAP: multiple lytic bone lesions with pathologic vertebral body compression fractures are presumably metastatic; 10mm LLL nodule 02/07 MRI brain: 10x5mm masslike density left lateral ventricle most likely partial volume averaging 02/09 MRI spine: multilevel metastatic bone disease; compression fractures; no definite nerve root impingement ASSESSMENT/PLAN 57 year-old male with pmhx of laryngeal cancer s/p trach placement and voice box removal on August 2017 with metastases to right hip, s/p chemo 2 weeks ago. He has metastatic disease to the right hip and is usually on a Fentanyl patch (75mcgs) for pain management. He is s/p chemotherapy apx 2 weeks ago admitted with AMS and rigors. Plan: 1. Metastatic laryngeal ca s/p laryngectomy - Brain MRI shows left lateral lesion 10mmx5, will obtain MRI with contrast for further eval - MRI spine, abdomen ordered - Oncology onboard here, outpt oncologist at [facility] - Maintain fentanyl patch - Neurosurgery consulted 2. Metabolic encephalopathy - Resolved 3. Sepsis - Empiric abx stopped, stable - Unknown source 4. Hypothyroidism - Increased synthroid to 100mcg 2 weeks ago per - Continue current dose, check TSH in 1 month 5. Severe malnutrition - With stage II pressure ulcer - Poor PO intake - Continue jevity TF here - Start prosource 6. Hyponatremia - Follow up AM labs 7. Hypocalcemia - Corrected 6.08 - Continue supplementation - Give 1gm ca gulconate 8. DVT ppx - Lovenox 40mg sq
[2018-02-09 10:13] LABS: ANION GAP 6 (8-16); BILIRUBIN,TOTAL 0.2 mg/dL (0.2-1.0); BLOOD UREA NITROGEN 8 mg/dL (7-18); CHLORIDE 96 mmol/L (98-107); CO2 27 mmol/L (21-32); CREATININE 0.5 mg/dL (0.7-1.3); GLUCOSE,RANDOM 102 mg/dL (74-106); POTASSIUM 4.1 mmol/L (3.5-5.1); SGOT/AST 35 U/L (15-37); SGPT/ALT 37 U/L (12-78); SODIUM 129 mmol/L (136-145); TOT PROT 6.4 g/dl (6.4-8.2)
[2018-02-09 10:14] LABS: ALK PHOS 185 U/L (45-117)
[2018-02-09 10:33] LABS: HEMATOCRIT 25.5 % (35.4-49); HEMOGLOBIN 8.9 GM/dL (11.7-16.9); MCH 33.3 pg (25.7-33.7); MCHC 34.9 g/dl (32.0-35.9); MEAN CELL VOLUME 95.5 fl (80-96); MEAN PLT VOLUME 6.8 fl (7.5-11.1); PLATELET COUNT 330 K/MM3 (134-434); RBC 2.68 M/mm3 (4.00-5.60); RDW 15.5 % (11.9-15.9); WHITE BLOOD COUNT 5.4 K/mm3 (4.0-10.0)
[2018-02-09 11:15] LABS: MAGNESIUM 2.1 mg/dL (1.8-2.4); PHOSPHOROUS 3.2 mg/dL (2.5-4.9)
[2018-02-09 11:23] LABS: CALCIUM 5.5 mg/dL (8.5-10.1)
[2018-02-09 12:00] LABS: PLATELET ESTIMATE NORMAL
[2018-02-09] MEDS ORDERED: PT OWN MED DRAWER 7, Y5N ONE ×2 (13:15→15:13)
[2018-02-09] MEDS: ENOXAPARIN NA (PORCINE) 40 MG/0.4 ML DISP.SYRIN SQ SCH (13:18)
[2018-02-09] MEDS: CALCIUM 500MG/VIT-D 200 UNITS COMBO TABLET (FP) PO SCH ×2 (13:18→21:28)
[2018-02-09] MEDS ORDERED: CALCIUM GLUCONATE 10% - 1,000 MG/10 ML VIAL IVPB ONE (14:15)
--- NOTE | 2018-02-09 14:15 | PN ---
Progress Note, Physician History of Present Illness: Pt seen and examined at bedside. He is awake and appears comfortable. - Current Medication List Current Medications: Active Medications Calcium Carbonate/Cholecalciferol (Os-You 500+D -) 1 tab PO BID [facility] Last Admin: 02/09/18 13:18 Dose: 1 tab Enoxaparin Sodium (Lovenox -) 40 mg SQ DAILY [facility] Last Admin: 02/09/18 13:18 Dose: 40 mg Fentanyl (Duragesic 25mcg Patch -) 1 patch TD Q72H [facility] Stop: 02/14/18 13:13 Last Admin: 02/07/18 13:38 Dose: 1 patch Levothyroxine Sodium (Synthroid -) 100 mcg PEG DAILY@0700 [facility] Last Admin: 02/09/18 06:32 Dose: 100 mcg Miscellaneous (Duragesic Patch Waste) 1 each TD PRN PRN PRN Reason: PAIN Morphine Sulfate (Morphine Sulfate) 1 mg IVPUSH Q6H PRN PRN Reason: PAIN LEVEL 7 - 10 - Objective Vital Signs: Vital Signs Temperature 98.9 F 02/09/18 08:31 Pulse Rate 103 H 02/09/18 08:31 Respiratory Rate 17 02/09/18 08:31 Blood Pressure 103/66 02/09/18 08:31 O2 Sat by Pulse Oximetry (%) 98 02/08/18 21:00 Constitutional: Yes: Calm Eyes: Yes: Conjunctiva Clear Neck: Yes: Other (trache) Cardiovascular: Yes: S1, S2 Respiratory: Yes: CTA Bilaterally Gastrointestinal: Yes: Soft, Other (peg) Genitourinary: Yes: Incontinence Musculoskeletal: Yes: Muscle Weakness Edema: No Neurological: Yes: Oriented Labs: CBC, BMP 02/09/18 09:20 02/09/18 09:20 INR, PTT INR 1.17 (0.82-1.09) H 02/05/18 13:10 Problem List - Problems (1) Hyponatremia Code(s): E87.1 - HYPO-OSMOLALITY AND HYPONATREMIA (2) Hypocalcemia Code(s): E83.51 - HYPOCALCEMIA (3) Sepsis Code(s): A41.9 - SEPSIS, UNSPECIFIED ORGANISM Qualifiers: Sepsis type: sepsis due to unspecified organism Qualified Code(s): A41.9 - Sepsis, unspecified organism (4) Status post laryngectomy Code(s): Z90.02 - ACQUIRED ABSENCE OF LARYNX Assessment/Plan Current Medications Generic Name Dose Route Start Last Admin Trade Name Freq PRN Reason Stop Dose Admin Calcium Carbonate/Cholecalciferol 1 tab 02/07/18 10:00 02/09/18 13:18 Os-You 500+D - PO 1 tab BID YUKO Administration Enoxaparin Sodium 40 mg 02/05/18 22:00 02/09/18 13:18 Lovenox - SQ 40 mg DAILY YUKO Administration Fentanyl 1 patch 02/07/18 13:15 02/07/18 13:38 Duragesic 25mcg Patch - TD 02/14/18 13:13 1 patch Q72H YUKO Administration Levothyroxine Sodium 100 mcg 02/06/18 09:15 02/09/18 06:32 Synthroid - PEG 100 mcg DAILY@0700 YUKO Administration Miscellaneous 1 each 02/07/18 13:13 Duragesic Patch Waste TD PRN PRN PAIN Morphine Sulfate 1 mg 02/07/18 13:13 Morphine Sulfate IVPUSH Q6H PRN PAIN LEVEL 7 - 10 Laboratory Tests 02/09/18 02/09/18 02/09/18 02:30 02:30 07:25 Sodium Serum Osmolality Pending Urine Osmolality 485 Ur Random Sodium 47 02/09/18 09:20 Sodium 129 L Serum Osmolality Urine Osmolality Ur Random Sodium Impression 1. hyponatremia 2. hypocalcemia 3. laryngeal cancer 4. s/p trache 5. hypothyroidism Plan - sodium is improving - replace calcium - repeat labs in am - cont feeds - follow up scans - follow osms - check pth level - will follow
[2018-02-09] MEDS ORDERED: CALCIUM GLUCONATE 10% - 1,000 MG in DEXTROSE 5%-WATER - 100 ML IVPB ONE (14:30)
--- NOTE | 2018-02-09 15:01 | PN ---
Progress Note, Physician History of Present Illness: patient stable no complaints ent note noted neurosurg on case - Current Medication List Current Medications: Active Medications Calcitriol (Rocaltrol Liquid -) 0.25 mcg PEG BID [facility] Calcium Carbonate/Cholecalciferol (Os-You 500+D -) 2 tab PO BID [facility] Enoxaparin Sodium (Lovenox -) 40 mg SQ DAILY [facility] Last Admin: 02/09/18 13:18 Dose: 40 mg Fentanyl (Duragesic 25mcg Patch -) 1 patch TD Q72H [facility] Stop: 02/14/18 13:13 Last Admin: 02/07/18 13:38 Dose: 1 patch Calcium Gluconate 1,000 mg/ (Dextrose) 110 mls @ 110 mls/hr IVPB ONCE ONE Stop: 02/09/18 15:29 Levothyroxine Sodium (Synthroid -) 100 mcg PEG DAILY@0700 [facility] Last Admin: 02/09/18 06:32 Dose: 100 mcg Miscellaneous (Duragesic Patch Waste) 1 each TD PRN PRN PRN Reason: PAIN Morphine Sulfate (Morphine Sulfate) 1 mg IVPUSH Q6H PRN PRN Reason: PAIN LEVEL 7 - 10 - Objective Vital Signs: Vital Signs Temperature 98.9 F 02/09/18 08:31 Pulse Rate 103 H 02/09/18 08:31 Respiratory Rate 17 02/09/18 08:31 Blood Pressure 103/66 02/09/18 08:31 O2 Sat by Pulse Oximetry (%) 98 02/08/18 21:00 Constitutional: Yes: No Distress, Calm Cardiovascular: Yes: Regular Rate and Rhythm Respiratory: Yes: Regular, CTA Bilaterally, Other (trach) Gastrointestinal: Yes: Normal Bowel Sounds, Soft, Other (peg in place) Musculoskeletal: Yes: WNL Extremities: Yes: WNL Neurological: Yes: Alert, Oriented Psychiatric: Yes: Alert, Oriented Labs: CBC, BMP 02/09/18 09:20 02/09/18 09:20 INR, PTT INR 1.17 (0.82-1.09) H 02/05/18 13:10 Assessment/Plan all cx results noted sever electrolyte abn hypocalcemis confusion lethargy dehydration electrolyte abn plan stable off of abx continue to monitor rest as per the teams awaiting for ent to see the patient await for mri imaging results
[2018-02-09] MEDS: CALCITRIOL 1 MCG/ML BOT PEG SCH ×2 (16:33→21:29)
[2018-02-10] MEDS: LEVOTHYROXINE NA 100 MCG TABLET (FP) PEG SCH (06:18)
[2018-02-10 08:23] LABS: ALBUMIN 2.8 g/dl (3.4-5.0); ANION GAP 5 (8-16); BILIRUBIN,TOTAL 0.2 mg/dL (0.2-1.0); BLOOD UREA NITROGEN 6 mg/dL (7-18); CHLORIDE 93 mmol/L (98-107); CO2 29 mmol/L (21-32); CREATININE 0.5 mg/dL (0.7-1.3); GLUCOSE,RANDOM 96 mg/dL (74-106); PHOSPHOROUS 3.6 mg/dL (2.5-4.9); POTASSIUM 5.4 mmol/L (3.5-5.1); SGOT/AST 39 U/L (15-37); SGPT/ALT 40 U/L (12-78); SODIUM 127 mmol/L (136-145); TOT PROT 6.2 g/dl (6.4-8.2)
[2018-02-10 08:24] LABS: ALK PHOS 183 U/L (45-117)
--- NOTE | 2018-02-10 08:29 | PN ---
Progress Note (short form) - Note Progress Note: NEUROSURGERY Denies H/A or N/V, sz, increasing weakness. No F/C. PE: Tmax 99.6, AF, VSS HEENT- NC/AT; Neck- trach in place; Cor- RR; Lungs- CTA B; Abd- PEG in place, benign; Ext- no sign of DVT Sleepy still, easily arousable CN- intact; Motor- 4+-5 B UE/LE except R IP 4 pain limited; Sensation- intact LT ; DTR- hyporefelxia Brain MRI- L lateral ventricular wall lesion 6 x 10 mm without edema or HCP c/w subepemdymoma; mild periventricular small vessle dz Head CT- No fx or acute bleed Brain MRI (2017)- similar to current MRI CTLS spine MRI- C6-7 DDD without significant stenosis; T8 & 10 mild edema and marrow signal changes; R T10 > T8 enhancement with mild posterior cortex bulging ; multilevel lumbar DDD; L5 compression deformity 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
[2018-02-10] MEDS ORDERED: PT OWN MED DRAWER 7, Y5N ONE (09:07)
[2018-02-10] MEDS: CALCIUM 500MG/VIT-D 200 UNITS COMBO TABLET (FP) PO SCH ×2 (09:13→21:24)
[2018-02-10] MEDS: ENOXAPARIN NA (PORCINE) 40 MG/0.4 ML DISP.SYRIN SQ SCH (09:13)
[2018-02-10] MEDS: CALCITRIOL 1 MCG/ML BOT PEG SCH ×2 (09:13→21:31)
[2018-02-10 09:17] LABS: CALCIUM 6.4 mg/dL (8.5-10.1)
--- NOTE | 2018-02-10 09:37 | CONSULT ---
Admitting History and Physical - Primary Care Physician PCP: Zulema Curran - Admission History of Present Illness: Per EMR: 57 yo M with hx hoarseness with dx of laryngeal tumor. Laryngectomy performed August 2017 and gastrostomy tube placed. Now admitted for altered mental status and sepsis. Chemotherapy and has metastatic disease to right hip. Pt never smoked or drank. He gets about 4 cans of Jevity via his peg tube daily , as well as PO intake, with weight loss.Metastatic laryngeal ca s/p laryngectomy Pt did have a bilateral type 1 thyroplasty surgery in June 2016 with the goal of improving his voice. This is my first consult with Mr. Ward. History Source: Patient, Medical Record Limitations to Obtaining History: Clinical Condition - Past Medical History Heme/Onc: Yes: Other (laryngeal cancer with mets) Endocrine: Yes: Hypothyroidism - Smoking History Smoking history: Unknown if ever smoked Have you smoked in the past 12 months: No Aproximately how many cigarettes per day: 0 - Alcohol/Substance Use Hx Alcohol Use: No History - Admission Reason For Visit: SEPSIS - Diagnostics X-ray: Report Reviewed CT Scan: Report Reviewed - General Mental Status: Alert and Oriented, Awake and Alert, Able to Follow Commands, Intermittently Confused (suspected?), Flat Affect Attention: Intact Ability to Follow Directions: Fair Head/Neck Control: Good - Hearing Hearing: Normal Hearing Aide: No Speech Evaluation - Communication Primary Language: TANZANIAN Oral Expression Ability: Yes: Non-Vocal (Laryngectomy therefore Aphonic. Mouths words, gestures, writes.) - Swallow Evaluation/Bedside Assessment Current Nutritional Intake: G Tube Oral Secretions: Yes: WFL Dentition: Yes: Edentulous (upper), Dental Appliance Upper (at home), Dental Appliance Lower Facial Symmetry at Rest: Symmetrical Facial Symmetry on Retraction: Symmetrical Facial Movement: Controlled Against Resistance Opening: Normal Against Resistance Closing: Normal Pucker Lips: Normal Smile: Normal Lingual Movement: Normal, Symmetric Lingual Speed of Movement: Normal Lingual Movement Strgth Against Opposition: Normal Lingual Movement Characteristics: Normal Velopharyngeal Movement: Normal Recommendations - Speech Evaluation, Impression/Plan Impression: Metastatic laryngeal ca s/p laryngectomy.Laryngectomy therefore Aphonic. Mouths words, gestures, writes. Upper dentures are at home. Swallowing is function. Unlikely aspirating, as he had a laryngectomy, unless fistula is suspected. Pt needs further education regarding loss of voice. Pt attempting to speak louder when not understood. - Disposition Discharge to: Home with Assist (VNS for Speech training/electrolarynx. Consider TEP, if and when medically appropriate.) - Dysphagia Impressions/Plan Dysphagia Treatment Plan: OOB for meals, OOB for 1 h. after meals Recommendations: Other (RD consult. Consider nocturnal GT feedings to supplement daily PO intake. Recent weight loss.) - Recommendations Diet Consistency: Other (soft, easy to chew diet, once dentures obtained. Menu selection.) Medication Administration: Whole with water Liquids: Thin Liquids
--- NOTE | 2018-02-10 11:40 | PN ---
Progress Note (short form) - Note Progress Note: Patient seen and examined looks much better O/E: General: NAD HEENT: NCAT Cor: RRR Lungs: CTA b/l Abdomen: +PEG tube site is normal LE: No CCE Neuro: Alert and awake, able to follow commands. Last Vital Signs Temp Pulse Resp BP Pulse Ox 99.6 F 85 18 131/72 98 02/07/18 14:07 02/07/18 14:07 02/07/18 14:07 02/07/18 14:07 02/06/18 21:00 CBC, BMP 02/07/18 06:35 02/07/18 06:35 Current Medications Generic Name Dose Route Start Last Admin Trade Name Freq PRN Reason Stop Dose Admin Amino Acids 30 ml 02/07/18 17:30 Prosource No Carb Liquid Pkt PO BID@0800,1730 YUKO Calcium Carbonate/Cholecalciferol 1 tab 02/07/18 10:00 02/07/18 10:30 Os-You 500+D - PO 1 tab BID YUKO Administration Enoxaparin Sodium 40 mg 02/05/18 22:00 02/07/18 10:30 Lovenox - SQ 40 mg DAILY YUKO Administration Fentanyl 1 patch 02/07/18 13:15 02/07/18 13:38 Duragesic 25mcg Patch - TD 02/14/18 13:13 1 patch Q72H YUKO Administration AA 2.75 %/CALCIUM/LYTES/D7.5W 1,000 mls @ 84 mls/hr 02/06/18 12:45 02/07/18 15:52 Clinimix 2.75%-7.5% Solution IV 84 mls/hr Q12H YUKO Administration Levothyroxine Sodium 100 mcg 02/06/18 09:15 02/07/18 06:07 Synthroid - PEG 100 mcg DAILY@0700 YUKO Administration Miscellaneous 1 each 02/07/18 13:13 Duragesic Patch Waste TD PRN PRN PAIN Morphine Sulfate 1 mg 02/07/18 13:13 Morphine Sulfate IVPUSH Q6H PRN PAIN LEVEL 7 - 10 Multivitamins/Minerals 10 ml 02/07/18 15:00 02/07/18 15:52 Infuvite Adult - IV 10 ml Q24H YUKO Administration Pantoprazole Sodium 40 mg 02/06/18 10:00 02/07/18 11:13 Protonix Iv IVPUSH 40 mg DAILY YUKO Administration metastatic Laryngeal carcinoma. also with compression fx T12, L4/5. Lytic lesions in rt. acetabulum s/p RT to the hip recently MRI spine reviewed, no cord compression f/u with his oncologist very closely. Message left to her again. He follows at [facility]. Spoke to , advised f/u in one week, to call her office on Tuesday to f./u with her next week. Rest per primary Primary team notified about the plan, updated about the communication with the oncologist and also request CDs of the MRI to be taken to [facility]
--- NOTE | 2018-02-10 13:22 | PN ---
Progress Note (short form) - Note Progress Note: 57 year old male history of laryngeal cancer. Patient has trach and peg tube placement. Patient has finished chemo therapy three weeks ago. Patient has been incontinence. Initially he came for confusion, which is resolved and now he is back to baseline Spoke to radiologist yesterday, regarding doing whole spine mri. It was done and there is mets to spine , there is small area of ? t9 epidural encroachment of mets. Alert and follow command, eomi, pupisl reactive moving all extremity reflex are normal in upper extremity and lower extremity diminisehd sensation is normal MRI of brain and neurosurgery consult appreciated Assessment- Metastatic laryngeal cancer. 2. There is no cord compression, except there is small area ? enroaching t 9 , suggest to follow up with oncology/palliative for xrt -- There is no need for steroid, as clinically there is no signs of cord copression. 3. mri of brain showed a small lesion lateral to ventricle, Less likley to be mets to brain, agree with neurosurgery Thanking you so much Volodymyr Ochoa MD
--- NOTE | 2018-02-10 14:40 | PN ---
Progress Note, Physician History of Present Illness: patient stable mri results noted multilevel metastasis no distress - Current Medication List Current Medications: Active Medications Calcitriol (Rocaltrol Liquid -) 0.25 mcg PEG BID [facility] Last Admin: 02/10/18 09:13 Dose: 0.25 mcg Calcium Carbonate/Cholecalciferol (Os-You 500+D -) 2 tab PO BID [facility] Last Admin: 02/10/18 09:13 Dose: 2 tab Enoxaparin Sodium (Lovenox -) 40 mg SQ DAILY [facility] Last Admin: 02/10/18 09:13 Dose: 40 mg Fentanyl (Duragesic 25mcg Patch -) 1 patch TD Q72H [facility] Stop: 02/14/18 13:13 Last Admin: 02/07/18 13:38 Dose: 1 patch Levothyroxine Sodium (Synthroid -) 100 mcg PEG DAILY@0700 [facility] Last Admin: 02/10/18 06:18 Dose: 100 mcg Miscellaneous (Duragesic Patch Waste) 1 each TD PRN PRN PRN Reason: PAIN Morphine Sulfate (Morphine Sulfate) 1 mg IVPUSH Q6H PRN PRN Reason: PAIN LEVEL 7 - 10 - Objective Vital Signs: Vital Signs Temperature 99.1 F 02/10/18 06:00 Pulse Rate 102 H 02/10/18 06:00 Respiratory Rate 20 02/10/18 06:00 Blood Pressure 115/62 02/10/18 06:00 O2 Sat by Pulse Oximetry (%) 97 02/10/18 08:55 Constitutional: Yes: No Distress, Calm, Other (failure to thrive) Cardiovascular: Yes: Regular Rate and Rhythm Respiratory: Yes: Regular, CTA Bilaterally Gastrointestinal: Yes: Normal Bowel Sounds, Soft, Other (peg in place) Musculoskeletal: Yes: WNL Extremities: Yes: WNL Neurological: Yes: Alert, Oriented Psychiatric: Yes: Alert Labs: CBC, BMP 02/09/18 09:20 02/10/18 07:00 INR, PTT INR 1.17 (0.82-1.09) H 02/05/18 13:10 - ....Imaging MRI: Report Reviewed, Image Reviewed Assessment/Plan all cx results noted sever electrolyte abn hypocalcemis confusion lethargy dehydration electrolyte abn plan stable off of abx continue to monitor rest as per the teams nutrition
[2018-02-10] MEDS: fentaNYL 25mcg/hr PATCH.TD72 TD SCH (14:48)
--- NOTE | 2018-02-10 14:55 | PN ---
Progress Note (short form) - Note Progress Note: NEUROSURGERY Denies H/A or N/V, sz, increasing weakness. No F/C. PE: Tmax 99.6, AF, VSS HEENT- NC/AT; Neck- trach in place; Cor- RR; Lungs- CTA B; Abd- PEG in place, benign; Ext- no sign of DVT Sleepy still, easily arousable CN- intact; Motor- 4+-5 B UE/LE except R IP 4 pain limited; Sensation- intact LT ; DTR- hyporefelxia Brain MRI- L lateral ventricular wall lesion 6 x 10 mm without edema or HCP c/w subependymoma (non- malignant); mild periventricular small vessle dz Head CT- No fx or acute bleed Brain MRI (2016)- similar to current MRI CTLS spine MRI- C6-7 DDD without significant stenosis; T8 & 10 mild edema and marrow signal changes; R T10 > T8 enhancement with mild posterior cortex bulging ; + paraspinal edema/enhancement; multilevel lumbar DDD; L5 compression deformity Brain MRI with ml- prominence of L head of caudate with no enhancement. Unlikely neoplasm. 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
--- NOTE | 2018-02-10 17:01 | PN ---
Progress Note, Physician History of Present Illness: Pt seen and examined at bedside. He is awake and alert. He has been started on oral feeds. - Current Medication List Current Medications: Active Medications Calcitriol (Rocaltrol Liquid -) 0.25 mcg PEG BID [facility] Last Admin: 02/10/18 09:13 Dose: 0.25 mcg Calcium Carbonate/Cholecalciferol (Os-You 500+D -) 2 tab PO BID [facility] Last Admin: 02/10/18 09:13 Dose: 2 tab Enoxaparin Sodium (Lovenox -) 40 mg SQ DAILY [facility] Last Admin: 02/10/18 09:13 Dose: 40 mg Fentanyl (Duragesic 25mcg Patch -) 1 patch TD Q72H [facility] Stop: 02/14/18 13:13 Last Admin: 02/10/18 14:48 Dose: 1 patch Levothyroxine Sodium (Synthroid -) 100 mcg PEG DAILY@0700 [facility] Last Admin: 02/10/18 06:18 Dose: 100 mcg Miscellaneous (Duragesic Patch Waste) 1 each TD PRN PRN PRN Reason: PAIN Last Admin: 02/10/18 14:53 Dose: 1 each Morphine Sulfate (Morphine Sulfate) 1 mg IVPUSH Q6H PRN PRN Reason: PAIN LEVEL 7 - 10 - Objective Vital Signs: Vital Signs Temperature 98.8 F 02/10/18 15:08 Pulse Rate 96 H 02/10/18 15:08 Respiratory Rate 20 02/10/18 15:08 Blood Pressure 109/64 02/10/18 15:08 O2 Sat by Pulse Oximetry (%) 97 02/10/18 08:55 Constitutional: Yes: Calm Eyes: Yes: Conjunctiva Clear HENT: Yes: Atraumatic Neck: Yes: Other (trache) Cardiovascular: Yes: S1, S2 Respiratory: Yes: CTA Bilaterally Gastrointestinal: Yes: Soft, Other (peg) Genitourinary: Yes: Incontinence Musculoskeletal: Yes: Muscle Weakness Edema: No Neurological: Yes: Oriented Psychiatric: Yes: Oriented Labs: CBC, BMP 02/09/18 09:20 02/10/18 07:00 INR, PTT INR 1.17 (0.82-1.09) H 02/05/18 13:10 Problem List - Problems (1) Hyponatremia Code(s): E87.1 - HYPO-OSMOLALITY AND HYPONATREMIA (2) Hypocalcemia Code(s): E83.51 - HYPOCALCEMIA (3) Sepsis Code(s): A41.9 - SEPSIS, UNSPECIFIED ORGANISM Qualifiers: Sepsis type: sepsis due to unspecified organism Qualified Code(s): A41.9 - Sepsis, unspecified organism (4) Status post laryngectomy Code(s): Z90.02 - ACQUIRED ABSENCE OF LARYNX Assessment/Plan Current Medications Generic Name Dose Route Start Last Admin Trade Name Freq PRN Reason Stop Dose Admin Calcitriol 0.25 mcg 02/09/18 14:30 02/10/18 09:13 Rocaltrol Liquid - PEG 0.25 mcg BID YUKO Administration Calcium Carbonate/Cholecalciferol 2 tab 02/09/18 14:17 02/10/18 09:13 Os-[place]yu 500+D - PO 2 tab BID YUKO Administration Enoxaparin Sodium 40 mg 02/05/18 22:00 02/10/18 09:13 Lovenox - SQ 40 mg DAILY YUKO Administration Fentanyl 1 patch 02/07/18 13:15 02/10/18 14:48 Duragesic 25mcg Patch - TD 02/14/18 13:13 1 patch Q72H YUKO Administration Levothyroxine Sodium 100 mcg 02/06/18 09:15 02/10/18 06:18 Synthroid - PEG 100 mcg DAILY@0700 YUKO Administration Miscellaneous 1 each 02/07/18 13:13 02/10/18 14:53 Duragesic Patch Waste TD 1 each PRN PRN Administration PAIN Morphine Sulfate 1 mg 02/07/18 13:13 Morphine Sulfate IVPUSH Q6H PRN PAIN LEVEL 7 - 10 Laboratory Tests 02/09/18 02/09/18 02/09/18 02:30 02:30 07:25 Sodium Plasma Potassium Serum Osmolality 257 L TSH 23.00 H D Cortisol AM Sample Urine Osmolality 485 Ur Random Sodium 47 02/09/18 02/10/18 02/10/18 07:25 07:00 15:20 Sodium 127 L Plasma Potassium 4.5 Serum Osmolality TSH Cortisol AM Sample 16.4 Urine Osmolality Ur Random Sodium Impression 1. hyponatremia 2. hypocalcemia 3. laryngeal cancer 4. s/p trache 5. hypothyroidism Plan - repeat potassium normal - will need to adjust feeding as he is now on oral feeds, discussed with dietary - consider increasing synthroid dose as tsh is high - likely siadh - restrict free water, decreased the amount with feeds - will give trial of salt tabs - follow up pth - cont calcium supplements - will follow
[2018-02-10] MEDS ORDERED: CALCIUM GLUCONATE 10% - 1,000 MG/10 ML VIAL IVPB ONE (17:03)
--- NOTE | 2018-02-10 18:42 | PN ---
Physical Exam: SUBJECTIVE: Patient seen and examined OBJECTIVE: Vital Signs Period Temp Pulse Resp BP Sys/Shrestha Pulse Ox Last 24 Hr 98.6 F-99.1 F 96-104 20-20 109-122/61-65 97-97 GENERAL: The patient is awake, alert, and fully oriented, in no acute distress. HEAD: Normal with no signs of trauma. EYES: PERRL, extraocular movements intact, sclera anicteric, conjunctiva clear. No ptosis. ENT: Ears normal, nares patent, oropharynx clear without exudates, moist mucous membranes. NECK: Trachea midline, full range of motion, supple. LUNGS: Breath sounds equal, clear to auscultation bilaterally, no wheezes, no crackles, no accessory muscle use. HEART: Regular rate and rhythm, S1, S2 without murmur, rub or gallop. ABDOMEN: Soft, nontender, nondistended, normoactive bowel sounds, no guarding, no rebound, no hepatosplenomegaly, no masses. EXTREMITIES: 2+ pulses, warm, well-perfused, no edema. NEUROLOGICAL: Cranial nerves II through XII grossly intact. Normal speech, gait not observed. PSYCH: Normal mood, normal affect. SKIN: Warm, dry, normal turgor, no rashes or lesions noted Laboratory Results - last 24 hr 02/08/18 02/09/18 02/10/18 21:00 07:25 07:00 Sodium 127 L Potassium 5.4 H D Plasma Potassium Chloride 93 L Carbon Dioxide 29 Anion Gap 5 L BUN 6 L D Creatinine 0.5 L Creat Clearance w eGFR > 60 Random Glucose 96 Calcium 5.6 L* 6.4 L* Phosphorus 3.6 Total Bilirubin 0.2 AST 39 H ALT 40 Alkaline Phosphatase 183 H Total Protein 6.2 L Albumin 2.8 L PTH Intact 78 H PTH Intact Intraop 0 m Cortisol AM Sample 16.4 02/10/18 15:20 Sodium Potassium Plasma Potassium 4.5 Chloride Carbon Dioxide Anion Gap BUN Creatinine Creat Clearance w eGFR Random Glucose Calcium Phosphorus Total Bilirubin AST ALT Alkaline Phosphatase Total Protein Albumin PTH Intact PTH Intact Intraop 0 m Cortisol AM Sample Active Medications Generic Name Dose Route Start Last Admin Trade Name Freq PRN Reason Stop Dose Admin Calcitriol 0.25 mcg 02/09/18 14:30 02/10/18 09:13 Rocaltrol Liquid - PEG 0.25 mcg BID YUKO Administration Calcium Carbonate/Cholecalciferol 2 tab 02/09/18 14:17 02/10/18 09:13 Os-You 500+D - PO 2 tab BID YUKO Administration Enoxaparin Sodium 40 mg 02/05/18 22:00 02/10/18 09:13 Lovenox - SQ 40 mg DAILY YUKO Administration Fentanyl 1 patch 02/07/18 13:15 02/10/18 14:48 Duragesic 25mcg Patch - TD 02/14/18 13:13 1 patch Q72H YUKO Administration Levothyroxine Sodium 112.5 mcg 02/10/18 18:41 Synthroid - PEG DAILY@0700 REPLACED [facility] Miscellaneous 1 each 02/07/18 13:13 02/10/18 14:53 Duragesic Patch Waste TD 1 each PRN PRN Administration PAIN Morphine Sulfate 1 mg 02/07/18 13:13 Morphine Sulfate IVPUSH Q6H PRN PAIN LEVEL 7 - 10 ASSESSMENT/PLAN: switch to nighttime tube feeding 8pm to 8am increased levothyroxine to 112.5mcg
[2018-02-11] MEDS ORDERED: CALCIUM GLUCONATE 10% - 1,000 MG/10 ML VIAL IVPB ONE (00:45)
[2018-02-11] MEDS: LEVOTHYROXINE NA 112 MCG TABLET (FP) PO SCH (06:20)
[2018-02-11] MEDS ORDERED: PT OWN MED DRAWER 7, Y5N ONE ×2 (09:52→17:14)
--- NOTE | 2018-02-11 09:54 | PN ---
Progress Note (short form) - Note Progress Note: NEUROSURGERY No reported new problems Denies H/A or N/V, sz, increasing weakness. No F/C. PE: AF, VSS Comfortable HEENT- NC/AT; Neck- trach in place; Cor- RR; Lungs- CTA B; Abd- PEG in place, benign; Ext- no sign of DVT Arousable, following commands CN- intact; Motor- 4+-5 B UE/LE except R IP 4; Sensation- intact LT; DTR- hyporefelxia Brain MRI- L lateral ventricular wall lesion 6 x 10 mm without edema or HCP c/w subependymoma (non-malignant); mild periventricular small vessel dz Head CT- No fx or acute bleed CTLS spine MRI- C6-7 DDD without significant stenosis; T8 & 10 mild edema and marrow signal changes; R T10 > T8 enhancement with mild posterior cortex bulging ; + paraspinal edema/enhancement; multilevel lumbar DDD; L5 compression deformity Brain MRI with ml- prominence of L head of caudate with no enhancement. 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
[2018-02-11] MEDS: CALCITRIOL 1 MCG/ML BOT PEG SCH ×2 (09:55→21:08)
[2018-02-11] MEDS: CALCIUM 500MG/VIT-D 200 UNITS COMBO TABLET (FP) PO SCH ×2 (09:55→21:07)
[2018-02-11] MEDS: ENOXAPARIN NA (PORCINE) 40 MG/0.4 ML DISP.SYRIN SQ SCH (09:55)
[2018-02-11 15:00] LABS: ALBUMIN 3.1 g/dl (3.4-5.0); ANION GAP 2 (8-16); BLOOD UREA NITROGEN 6 mg/dL (7-18); CALCIUM 7.2 mg/dL (8.5-10.1); CHLORIDE 95 mmol/L (98-107); CO2 29 mmol/L (21-32); CREATININE 0.4 mg/dL (0.7-1.3); GLUCOSE,RANDOM 93 mg/dL (74-106); POTASSIUM 5.3 mmol/L (3.5-5.1); SGOT/AST 32 U/L (15-37); SGPT/ALT 43 U/L (12-78); SODIUM 126 mmol/L (136-145)
[2018-02-11 15:01] LABS: ALK PHOS 189 U/L (45-117); BILIRUBIN,TOTAL 0.3 mg/dL (0.2-1.0); TOT PROT 6.7 g/dl (6.4-8.2)
--- NOTE | 2018-02-11 15:49 | PN ---
Physical Exam: SUBJECTIVE: Patient seen and examined. He has no complaints he feels well. at bedside. OBJECTIVE: Vital Signs Period Temp Pulse Resp BP Sys/Shrestha Pulse Ox Last 24 Hr 98.2 F-99.1 F 95-101 18-20 110-128/64-81 98 PE Neuro: alert, awake, cn 2-12intact HEENT: laryngoscope intake no erythema Pulm: CTAB CV: s1 s2 rrr Abd: + peg tube cdi, no distention, + bs Ext: warm, no le edema Laboratory Results - last 24 hr 02/10/18 02/11/18 02/11/18 15:20 11:26 13:50 Sodium 126 L Potassium 5.3 H Plasma Potassium 4.5 Chloride 95 L Carbon Dioxide 29 Anion Gap 2 L BUN 6 L Creatinine 0.4 L Creat Clearance w eGFR > 60 POC Glucometer 103 Random Glucose 93 Calcium 7.2 L Total Bilirubin 0.3 D AST 32 ALT 43 Alkaline Phosphatase 189 H Total Protein 6.7 Albumin 3.1 L Active Medications Generic Name Dose Route Start Last Admin Trade Name Freq PRN Reason Stop Dose Admin Calcitriol 0.25 mcg 02/09/18 14:30 02/11/18 09:55 Rocaltrol Liquid - PEG 0.25 mcg BID YUKO Administration Calcium Carbonate/Cholecalciferol 2 tab 02/09/18 14:17 02/11/18 09:55 Os-You 500+D - PO 2 tab BID YUKO Administration Enoxaparin Sodium 40 mg 02/05/18 22:00 02/11/18 09:55 Lovenox - SQ 40 mg DAILY YKUO Administration Fentanyl 1 patch 02/07/18 13:15 02/10/18 14:48 Duragesic 25mcg Patch - TD 02/14/18 13:13 1 patch Q72H YUKO Administration Levothyroxine Sodium 112 mcg 02/11/18 07:00 02/11/18 06:20 Synthroid - PO 112 mcg DAILY@0700 YUKO Administration Miscellaneous 1 each 02/07/18 13:13 02/10/18 14:53 Duragesic Patch Waste TD 1 each PRN PRN Administration PAIN Assessment: 57 year old male with pmhx of laryngeal cancer s/p trach placement and voice box removal on August 2017 with metastases to right hip, s/p chemo 2 weeks ago. He has metastatic disease to the right hip and is usually on a Fentanyl patch (75mcgs) for pain management. He is s/p chemotherapy apx 2 weeks ago admitted with AMS and rigors. Plan: 1. Metastatic laryngeal ca s/p laryngectomy - Brain MRI with ml- prominence of L head of caudate with no enhancement. 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 Branham in one week, to call her office on Tuesday - Send with CDs of the MRI to be taken to [place] 2. Hyponatremia - Start salt tabs 1 BID - Restrict free water with feeds - Renal following 3. Hypocalcemia - Improving - Continue calcitriol 0.25mcg BID - Continue supplementation 4. Hyperkalemia - Defer to renal 5. Metabolic encephalopathy - Resolved 6. Sepsis - Empiric abx stopped, stable - Unknown source 7. Hypothyroidism - Further increase synthroid to 112mcg recheck in 1 month 8. Severe malnutrition - With stage II pressure ulcer - Poor PO intake - Continue jevity TF here 8p-8a - Prosource 9. DVT ppx - Lovenox 40mg sq Visit type - Emergency Visit Emergency Visit: Yes ED Registration Date: 02/05/18 Care time: The patient presented to the Emergency Department on the above date and was hospitalized for further evaluation of their emergent condition. - New Patient This patient is new to me today: No - Critical Care Critical Care patient: No
[2018-02-11] MEDS ORDERED: SODIUM CHLORIDE 1 GM TABLET PO SCH (15:56)
--- NOTE | 2018-02-11 16:01 | PN ---
Progress Note, Physician History of Present Illness: Pt seen and examined. Events noted, results reviewed. Pt is currently alert, without specific complaints. - Current Medication List Current Medications: Active Medications Calcitriol (Rocaltrol Liquid -) 0.25 mcg PEG BID [facility] Last Admin: 02/11/18 09:55 Dose: 0.25 mcg Calcium Carbonate/Cholecalciferol (Os-You 500+D -) 2 tab PO BID [facility] Last Admin: 02/11/18 09:55 Dose: 2 tab Enoxaparin Sodium (Lovenox -) 40 mg SQ DAILY [facility] Last Admin: 02/11/18 09:55 Dose: 40 mg Fentanyl (Duragesic 25mcg Patch -) 1 patch TD Q72H [facility] Stop: 02/14/18 13:13 Last Admin: 02/10/18 14:48 Dose: 1 patch Levothyroxine Sodium (Synthroid -) 112 mcg PO DAILY@0700 [facility] Last Admin: 02/11/18 06:20 Dose: 112 mcg Miscellaneous (Duragesic Patch Waste) 1 each TD PRN PRN PRN Reason: PAIN Last Admin: 02/10/18 14:53 Dose: 1 each - Objective Vital Signs: Vital Signs Temperature 99.1 F 02/11/18 14:29 Pulse Rate 99 H 02/11/18 14:29 Respiratory Rate 20 02/11/18 14:29 Blood Pressure 113/78 02/11/18 14:29 O2 Sat by Pulse Oximetry (%) 98 02/10/18 21:00 Constitutional: Yes: No Distress Neck: Yes: Other (+tracheostomy) Cardiovascular: Yes: Tachycardia Respiratory: Yes: CTA Bilaterally Gastrointestinal: Yes: Normal Bowel Sounds, Soft Genitourinary: Yes: WNL Extremities: Yes: WNL Integumentary: Yes: WNL Neurological: Yes: Alert Labs: CBC, BMP 02/09/18 09:20 02/11/18 13:50 INR, PTT INR 1.17 (0.82-1.09) H 02/05/18 13:10 - ....Imaging MRI: Report Reviewed Problem List - Problems (1) Hypocalcemia Code(s): E83.51 - HYPOCALCEMIA (2) Hyponatremia Code(s): E87.1 - HYPO-OSMOLALITY AND HYPONATREMIA (3) Status post laryngectomy Code(s): Z90.02 - ACQUIRED ABSENCE OF LARYNX Assessment/Plan 57 y.o. male with PMH of metastatic laryngeal CA s/p laryngectomy/tracheostomy on chemotherapy 3 wks ago admitted with AMS and rigors initially on empiric antibiotics AMS lethargy hypocalcemia -- Pt is afebrile, alert, monitor off antibiotics at this time -- Imaging results noted, vertebral metastasis, neurosurgery following
[2018-02-11] MEDS: SODIUM CHLORIDE 1 GM TABLET GT SCH ×2 (18:09→21:07)
--- NOTE | 2018-02-11 18:40 | PN ---
Progress Note, Physician History of Present Illness: Pt seen and examined at bedside. He is awake and appears comfortable. - Current Medication List Current Medications: Active Medications Calcitriol (Rocaltrol Liquid -) 0.25 mcg PEG BID [facility] Last Admin: 02/11/18 09:55 Dose: 0.25 mcg Calcium Carbonate/Cholecalciferol (Os-You 500+D -) 2 tab PO BID [facility] Last Admin: 02/11/18 09:55 Dose: 2 tab Enoxaparin Sodium (Lovenox -) 40 mg SQ DAILY [facility] Last Admin: 02/11/18 09:55 Dose: 40 mg Fentanyl (Duragesic 25mcg Patch -) 1 patch TD Q72H [facility] Stop: 02/14/18 13:13 Last Admin: 02/10/18 14:48 Dose: 1 patch Levothyroxine Sodium (Synthroid -) 112 mcg PO DAILY@0700 [facility] Last Admin: 02/11/18 06:20 Dose: 112 mcg Miscellaneous (Duragesic Patch Waste) 1 each TD PRN PRN PRN Reason: PAIN Last Admin: 02/10/18 14:53 Dose: 1 each Sodium Chloride (Sodium Chloride Tablet -) 1 gm GT BID [facility] Last Admin: 02/11/18 18:09 Dose: 1 gm - Objective Vital Signs: Vital Signs Temperature 99.1 F 02/11/18 14:29 Pulse Rate 99 H 02/11/18 14:29 Respiratory Rate 20 02/11/18 14:29 Blood Pressure 113/78 02/11/18 14:29 O2 Sat by Pulse Oximetry (%) 100 02/11/18 10:05 Constitutional: Yes: Calm Neck: Yes: Other (trache) Cardiovascular: Yes: S1, S2 Respiratory: Yes: CTA Bilaterally Gastrointestinal: Yes: Soft, Other (peg tube) Genitourinary: Yes: Incontinence Musculoskeletal: Yes: WNL Edema: No Neurological: Yes: Oriented Psychiatric: Yes: Oriented Labs: CBC, BMP 02/09/18 09:20 02/11/18 13:50 INR, PTT INR 1.17 (0.82-1.09) H 02/05/18 13:10 Problem List - Problems (1) Hyponatremia Code(s): E87.1 - HYPO-OSMOLALITY AND HYPONATREMIA (2) Hypocalcemia Code(s): E83.51 - HYPOCALCEMIA (3) Sepsis Code(s): A41.9 - SEPSIS, UNSPECIFIED ORGANISM Qualifiers: Sepsis type: sepsis due to unspecified organism Qualified Code(s): A41.9 - Sepsis, unspecified organism (4) Status post laryngectomy Code(s): Z90.02 - ACQUIRED ABSENCE OF LARYNX Assessment/Plan Current Medications Generic Name Dose Route Start Last Admin Trade Name Freq PRN Reason Stop Dose Admin Calcitriol 0.25 mcg 02/09/18 14:30 02/11/18 09:55 Rocaltrol Liquid - PEG 0.25 mcg BID YUKO Administration Calcium Carbonate/Cholecalciferol 2 tab 02/09/18 14:17 02/11/18 09:55 Os-You 500+D - PO 2 tab BID YUKO Administration Enoxaparin Sodium 40 mg 02/05/18 22:00 02/11/18 09:55 Lovenox - SQ 40 mg DAILY YUKO Administration Fentanyl 1 patch 02/07/18 13:15 02/10/18 14:48 Duragesic 25mcg Patch - TD 02/14/18 13:13 1 patch Q72H YUKO Administration Levothyroxine Sodium 112 mcg 02/11/18 07:00 02/11/18 06:20 Synthroid - PO 112 mcg DAILY@0700 YUKO Administration Miscellaneous 1 each 02/07/18 13:13 02/10/18 14:53 Duragesic Patch Waste TD 1 each PRN PRN Administration PAIN Sodium Chloride 1 gm 02/11/18 16:30 02/11/18 18:09 Sodium Chloride Tablet - GT 1 gm BID YUKO Administration Impression 1. hyponatremia 2. hypocalcemia 3. laryngeal cancer 4. s/p trache 5. hypothyroidism Plan - pt appears dehydrated, will give 500 cc of saline - repeat labs in am - synthroid dose adjusted - pt now on feeds - follow up pth - cont calcium supplements - will follow
[2018-02-12] MEDS: LEVOTHYROXINE NA 112 MCG TABLET (FP) PO SCH (06:27)
[2018-02-12 08:06] LABS: ALBUMIN 3.4 g/dl (3.4-5.0); ANION GAP 5 (8-16); BLOOD UREA NITROGEN 8 mg/dL (7-18); CHLORIDE 95 mmol/L (98-107); CO2 28 mmol/L (21-32); CREATININE 0.5 mg/dL (0.7-1.3); GLUCOSE,RANDOM 82 mg/dL (74-106); POTASSIUM 4.7 mmol/L (3.5-5.1); SGOT/AST 33 U/L (15-37); SGPT/ALT 42 U/L (12-78); SODIUM 128 mmol/L (136-145)
[2018-02-12 08:07] LABS: ALK PHOS 203 U/L (45-117); BILIRUBIN,TOTAL 0.4 mg/dL (0.2-1.0); TOT PROT 7.3 g/dl (6.4-8.2)
[2018-02-12 08:50] LABS: CALCIUM 6.8 mg/dL (8.5-10.1)
--- NOTE | 2018-02-12 09:36 | PN ---
Progress Note (short form) - Note Progress Note: NEUROSURGERY No reported new problems Denies H/A or N/V, sz, increasing weakness. No F/C. 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
--- NOTE | 2018-02-12 09:48 | PN ---
Physical Exam: SUBJECTIVE: Patient seen and examined. He ate Po breakfast. Per RN pt refused feeds overnight, per PT he said the doctor stopped it. OBJECTIVE: Vital Signs Period Temp Pulse Resp BP Sys/Shrestha Pulse Ox Last 24 Hr 98.3 F-99.1 F 97-101 20-20 108-126/73-83 99-100 PE Neuro: alert, awake, cn 2-12intact HEENT: laryngoscope present Pulm: diminished, scattered crackles r base CV: s1 s2 rrr Abd: + peg tube cdi, no distention, + bs Ext: warm, no le edema Laboratory Results - last 24 hr 02/11/18 02/11/18 02/12/18 11:26 13:50 06:45 Sodium 126 L 128 L Potassium 5.3 H 4.7 Chloride 95 L 95 L Carbon Dioxide 29 28 Anion Gap 2 L 5 L BUN 6 L 8 D Creatinine 0.4 L 0.5 L D Creat Clearance w eGFR > 60 > 60 POC Glucometer 103 Random Glucose 93 82 Calcium 7.2 L 6.8 L* Total Bilirubin 0.3 D 0.4 D AST 32 33 ALT 43 42 Alkaline Phosphatase 189 H 203 H Total Protein 6.7 7.3 Albumin 3.1 L 3.4 Active Medications Generic Name Dose Route Start Last Admin Trade Name Freq PRN Reason Stop Dose Admin Amino Acids 30 ml 02/12/18 17:30 Prosource No Carb Liquid Pkt PO BID@0800,1730 YUKO Calcitriol 0.25 mcg 02/09/18 14:30 02/11/18 21:08 Rocaltrol Liquid - PEG 0.25 mcg BID YUKO Administration Calcium Carbonate/Cholecalciferol 2 tab 02/09/18 14:17 02/11/18 21:07 Os-You 500+D - PO 2 tab BID YUKO Administration Enoxaparin Sodium 40 mg 02/05/18 22:00 02/11/18 09:55 Lovenox - SQ 40 mg DAILY YUKO Administration Fentanyl 1 patch 02/07/18 13:15 02/10/18 14:48 Duragesic 25mcg Patch - TD 02/14/18 13:13 1 patch Q72H YUKO Administration Levothyroxine Sodium 112 mcg 02/11/18 07:00 02/12/18 06:27 Synthroid - PO 112 mcg DAILY@0700 YUKO Administration Miscellaneous 1 each 02/07/18 13:13 02/10/18 14:53 Duragesic Patch Waste TD 1 each PRN PRN Administration PAIN Sodium Chloride 1 gm 02/11/18 16:30 02/11/18 21:07 Sodium Chloride Tablet - GT 1 gm BID YUKO Administration Assessment: 57 year old male with pmhx of laryngeal cancer s/p trach placement and voice box removal on August 2017 with metastases to right hip, s/p chemo 2 weeks ago. He has metastatic disease to the right hip and is usually on a Fentanyl patch (75mcgs) for pain management. He is s/p chemotherapy apx 2 weeks ago admitted with AMS and rigors. Plan: 1. Metastatic laryngeal ca s/p laryngectomy - Brain MRI with ml- prominence of L head of caudate with no enhancement. 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 Branham in one week, to call her office on Tuesday - Send with CDs of the MRI to be taken to [place] 2. Hyponatremia - Mildly improved - Given 500cc x1 yesterday - Continue salt tabs 1 BID - Restrict free water with feeds - Renal following 3. Hypocalcemia - Decreased today, corrected 7.2 from 7.9 - Continue calcitriol 0.25mcg BID - Continue supplementation 4. Hyperkalemia - Resolved 5. Metabolic encephalopathy - Resolved 6. Sepsis - Empiric abx stopped, stable - Unknown source 7. Hypothyroidism - Further increase synthroid to 112mcg recheck in 1 month 8. Severe malnutrition - With stage II pressure ulcer - Poor PO intake - Continue jevity TF here 8p-8a - Prosource 9. DVT ppx - Lovenox 40mg sq Visit type - Emergency Visit Emergency Visit: Yes ED Registration Date: 02/05/18 Care time: The patient presented to the Emergency Department on the above date and was hospitalized for further evaluation of their emergent condition. - New Patient This patient is new to me today: No - Critical Care Critical Care patient: No
[2018-02-12] MEDS ORDERED: PT OWN MED DRAWER 7, Y5N ONE ×2 (11:17→18:14)
[2018-02-12] MEDS: SODIUM CHLORIDE 1 GM TABLET GT SCH ×2 (11:23→21:41)
[2018-02-12] MEDS: CALCITRIOL 1 MCG/ML BOT PEG SCH ×2 (11:23→21:40)
[2018-02-12] MEDS: ENOXAPARIN NA (PORCINE) 40 MG/0.4 ML DISP.SYRIN SQ SCH (11:23)
[2018-02-12] MEDS: CALCIUM 500MG/VIT-D 200 UNITS COMBO TABLET (FP) PO SCH ×2 (11:23→21:40)
--- NOTE | 2018-02-12 13:29 | PN ---
Progress Note, Physician History of Present Illness: Pt without distress. Indicates he feels well. NO shortness of breath/cough. Denies pain. - Current Medication List Current Medications: Active Medications Amino Acids (Prosource No Carb Liquid Pkt) 30 ml PO BID@0800,1730 [facility] Calcitriol (Rocaltrol Liquid -) 0.25 mcg PEG BID [facility] Last Admin: 02/12/18 11:23 Dose: 0.25 mcg Calcium Carbonate/Cholecalciferol (Os-You 500+D -) 2 tab PO BID [facility] Last Admin: 02/12/18 11:23 Dose: 2 tab Enoxaparin Sodium (Lovenox -) 40 mg SQ DAILY [facility] Last Admin: 02/12/18 11:23 Dose: 40 mg Fentanyl (Duragesic 25mcg Patch -) 1 patch TD Q72H [facility] Stop: 02/14/18 13:13 Last Admin: 02/10/18 14:48 Dose: 1 patch Levothyroxine Sodium (Synthroid -) 112 mcg PO DAILY@0700 [facility] Last Admin: 02/12/18 06:27 Dose: 112 mcg Miscellaneous (Duragesic Patch Waste) 1 each TD PRN PRN PRN Reason: PAIN Last Admin: 02/10/18 14:53 Dose: 1 each Sodium Chloride (Sodium Chloride Tablet -) 1 gm GT BID [facility] Last Admin: 02/12/18 11:23 Dose: 1 gm - Objective Vital Signs: Vital Signs Temperature 98.7 F 02/12/18 11:04 Pulse Rate 99 H 02/12/18 11:04 Respiratory Rate 20 02/12/18 11:04 Blood Pressure 108/71 02/12/18 11:04 O2 Sat by Pulse Oximetry (%) 99 02/11/18 21:00 Constitutional: Yes: No Distress, Calm Cardiovascular: Yes: Tachycardia Respiratory: Yes: Regular Gastrointestinal: Yes: Normal Bowel Sounds, Soft, Other (+GT) Genitourinary: Yes: WNL Edema: No Neurological: Yes: Alert Labs: CBC, BMP 02/09/18 09:20 02/12/18 06:45 INR, PTT INR 1.17 (0.82-1.09) H 02/05/18 13:10 Problem List - Problems (1) Hypocalcemia Code(s): E83.51 - HYPOCALCEMIA (2) Hyponatremia Code(s): E87.1 - HYPO-OSMOLALITY AND HYPONATREMIA (3) Status post laryngectomy Code(s): Z90.02 - ACQUIRED ABSENCE OF LARYNX Assessment/Plan 57 y.o. male with PMH of metastatic laryngeal CA s/p laryngectomy s/p trach on chemotherapy 3 wks ago admitted with AMS and rigors AMS lethargy hypocalcemia -- Pt stable off antibiotics at this time, continue monitor -- f/u with oncology
[2018-02-12] MEDS ORDERED: CALCIUM GLUCONATE 10% - 1,000 MG/10 ML VIAL IVPB ONE (17:28)
--- NOTE | 2018-02-12 17:28 | PN ---
Progress Note, Physician History of Present Illness: Pt seen and examined at bedside. He is awake and alert. He denies shortness of breath. - Current Medication List Current Medications: Active Medications Amino Acids (Prosource No Carb Liquid Pkt) 30 ml PO BID@0800,1730 [facility] Calcitriol (Rocaltrol Liquid -) 0.25 mcg PEG BID [facility] Last Admin: 02/12/18 11:23 Dose: 0.25 mcg Calcium Carbonate/Cholecalciferol (Os-You 500+D -) 2 tab PO BID [facility] Last Admin: 02/12/18 11:23 Dose: 2 tab Enoxaparin Sodium (Lovenox -) 40 mg SQ DAILY [facility] Last Admin: 02/12/18 11:23 Dose: 40 mg Fentanyl (Duragesic 25mcg Patch -) 1 patch TD Q72H [facility] Stop: 02/14/18 13:13 Last Admin: 02/10/18 14:48 Dose: 1 patch Levothyroxine Sodium (Synthroid -) 112 mcg PO DAILY@0700 [facility] Last Admin: 02/12/18 06:27 Dose: 112 mcg Miscellaneous (Duragesic Patch Waste) 1 each TD PRN PRN PRN Reason: PAIN Last Admin: 02/10/18 14:53 Dose: 1 each Sodium Chloride (Sodium Chloride Tablet -) 1 gm GT BID [facility] Last Admin: 02/12/18 11:23 Dose: 1 gm - Objective Vital Signs: Vital Signs Temperature 98.5 F 02/12/18 14:34 Pulse Rate 96 H 02/12/18 14:34 Respiratory Rate 18 02/12/18 14:34 Blood Pressure 102/70 02/12/18 14:34 O2 Sat by Pulse Oximetry (%) 99 02/11/18 21:00 Constitutional: Yes: Calm Eyes: Yes: Conjunctiva Clear Neck: Yes: Other (trache) Cardiovascular: Yes: S1, S2 Respiratory: Yes: CTA Bilaterally Gastrointestinal: Yes: Soft, Other (peg) Genitourinary: Yes: WNL Musculoskeletal: Yes: Muscle Weakness Edema: No Neurological: Yes: Oriented Psychiatric: Yes: Oriented Labs: CBC, BMP 02/09/18 09:20 02/12/18 06:45 INR, PTT INR 1.17 (0.82-1.09) H 02/05/18 13:10 Problem List - Problems (1) Hyponatremia Code(s): E87.1 - HYPO-OSMOLALITY AND HYPONATREMIA (2) Hypocalcemia Code(s): E83.51 - HYPOCALCEMIA (3) Sepsis Code(s): A41.9 - SEPSIS, UNSPECIFIED ORGANISM Qualifiers: Sepsis type: sepsis due to unspecified organism Qualified Code(s): A41.9 - Sepsis, unspecified organism (4) Status post laryngectomy Code(s): Z90.02 - ACQUIRED ABSENCE OF LARYNX Assessment/Plan Current Medications Generic Name Dose Route Start Last Admin Trade Name Freq PRN Reason Stop Dose Admin Amino Acids 30 ml 02/12/18 17:30 Prosource No Carb Liquid Pkt PO BID@0800,1730 YUKO Calcitriol 0.25 mcg 02/09/18 14:30 02/12/18 11:23 Rocaltrol Liquid - PEG 0.25 mcg BID YUKO Administration Calcium Carbonate/Cholecalciferol 2 tab 02/09/18 14:17 02/12/18 11:23 Os-Yuo 500+D - PO 2 tab BID YUKO Administration Enoxaparin Sodium 40 mg 02/05/18 22:00 02/12/18 11:23 Lovenox - SQ 40 mg DAILY YUKO Administration Fentanyl 1 patch 02/07/18 13:15 02/10/18 14:48 Duragesic 25mcg Patch - TD 02/14/18 13:13 1 patch Q72H YUKO Administration Levothyroxine Sodium 112 mcg 02/11/18 07:00 02/12/18 06:27 Synthroid - PO 112 mcg DAILY@0700 YUKO Administration Miscellaneous 1 each 02/07/18 13:13 02/10/18 14:53 Duragesic Patch Waste TD 1 each PRN PRN Administration PAIN Sodium Chloride 1 gm 02/11/18 16:30 02/12/18 11:23 Sodium Chloride Tablet - GT 1 gm BID YUKO Administration Impression 1. hyponatremia 2. hypocalcemia 3. laryngeal cancer 4. s/p trache 5. hypothyroidism Plan - will give more fluids - will replace calcium - sodium is improving - encourage PO intake - follow PTH level - will need to repeat tsh level as dose was changed - cont calcium supplements - will follow
[2018-02-12] MEDS ORDERED: SODIUM CHLORIDE 1,000 ML IV SCH (17:30)
[2018-02-12] MEDS: AMINO ACIDS/PROTEIN HYDROLYS 30 ML LIQUID.PKT PO SCH (18:17)
[2018-02-13] MEDS: LEVOTHYROXINE NA 112 MCG TABLET (FP) PO SCH (06:52)
[2018-02-13] MEDS: AMINO ACIDS/PROTEIN HYDROLYS 30 ML LIQUID.PKT PO SCH ×2 (07:55→18:31)
[2018-02-13 08:01] LABS: ALBUMIN 2.9 g/dl (3.4-5.0); ALK PHOS 176 U/L (45-117); ANION GAP 5 (8-16); BILIRUBIN,TOTAL 0.2 mg/dL (0.2-1.0); BLOOD UREA NITROGEN 8 mg/dL (7-18); CALCIUM 7.2 mg/dL (8.5-10.1); CHLORIDE 99 mmol/L (98-107); CO2 26 mmol/L (21-32); CREATININE 0.5 mg/dL (0.7-1.3); GLUCOSE,RANDOM 120 mg/dL (74-106); POTASSIUM 4.8 mmol/L (3.5-5.1); SGOT/AST 25 U/L (15-37); SGPT/ALT 32 U/L (12-78); SODIUM 130 mmol/L (136-145); TOT PROT 6.3 g/dl (6.4-8.2)
--- NOTE | 2018-02-13 08:52 | PN ---
Progress Note (short form) - Note Progress Note: NEUROSURGERY No reported new problems PE: AF, VSS Comfortable HEENT- NC/AT; Neck- trach in place; Cor- RR; Lungs- CTA B; Abd- PEG in place, benign; Ext- no sign of DVT Following commands CN- intact; Motor- 4+-5 B UE/LE except R IP 4; Sensation- intact LT; DTR- hyporefelxia T spine MRI- T8 & 10 edema and marrow signal changes; R T10 > T8 enhancement with mild posterior vertebral cortex bulging; + paraspinal edema/enhancement Brain MRI with ml- prominence of L head of caudate with no enhancement. 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
[2018-02-13] MEDS ORDERED: PT OWN MED DRAWER 7, Y5N ONE (10:23)
[2018-02-13] MEDS: CALCIUM 500MG/VIT-D 200 UNITS COMBO TABLET (FP) PO SCH ×2 (10:25→22:22)
[2018-02-13] MEDS: SODIUM CHLORIDE 1 GM TABLET GT SCH ×2 (10:25→22:22)
[2018-02-13] MEDS: ENOXAPARIN NA (PORCINE) 40 MG/0.4 ML DISP.SYRIN SQ SCH (10:25)
[2018-02-13] MEDS: CALCITRIOL 1 MCG/ML BOT PEG SCH ×2 (10:25→22:22)
--- NOTE | 2018-02-13 14:53 | PN ---
Progress Note, Physician History of Present Illness: stable no new issues - Current Medication List Current Medications: Active Medications Amino Acids (Prosource No Carb Liquid Pkt) 30 ml PO BID@0800,1730 [facility] Last Admin: 02/13/18 07:55 Dose: 30 ml Calcitriol (Rocaltrol Liquid -) 0.25 mcg PEG BID [facility] Last Admin: 02/13/18 10:25 Dose: 0.25 mcg Calcium Carbonate/Cholecalciferol (Os-You 500+D -) 2 tab PO BID [facility] Last Admin: 02/13/18 10:25 Dose: 2 tab Enoxaparin Sodium (Lovenox -) 40 mg SQ DAILY [facility] Last Admin: 02/13/18 10:25 Dose: 40 mg Fentanyl (Duragesic 25mcg Patch -) 1 patch TD Q72H [facility] Stop: 02/14/18 13:13 Last Admin: 02/10/18 14:48 Dose: 1 patch Levothyroxine Sodium (Synthroid -) 112 mcg PO DAILY@0700 [facility] Last Admin: 02/13/18 06:52 Dose: 112 mcg Miscellaneous (Duragesic Patch Waste) 1 each TD PRN PRN PRN Reason: PAIN Last Admin: 02/10/18 14:53 Dose: 1 each Sodium Chloride (Sodium Chloride Tablet -) 1 gm GT BID [facility] Last Admin: 02/13/18 10:25 Dose: 1 gm - Objective Vital Signs: Vital Signs Temperature 98.6 F 02/13/18 10:45 Pulse Rate 97 H 02/13/18 10:45 Respiratory Rate 20 02/13/18 10:45 Blood Pressure 122/79 02/13/18 10:45 O2 Sat by Pulse Oximetry (%) 99 02/13/18 09:00 Constitutional: Yes: No Distress, Calm HENT: Yes: Other Cardiovascular: Yes: Regular Rate and Rhythm Respiratory: Yes: Regular, CTA Bilaterally Gastrointestinal: Yes: Normal Bowel Sounds, Soft, Other (peg in place) Musculoskeletal: Yes: WNL Extremities: Yes: WNL Neurological: Yes: Alert, Oriented Psychiatric: Yes: Alert, Oriented Labs: CBC, BMP 02/09/18 09:20 02/13/18 07:10 INR, PTT INR 1.17 (0.82-1.09) H 02/05/18 13:10 Assessment/Plan all cx results noted sever electrolyte abn hypocalcemis confusion lethargy dehydration electrolyte abn plan stable off of abx continue to monitor rest as per the teams nutrition awaiting final plan
[2018-02-13] MEDS: fentaNYL 25mcg/hr PATCH.TD72 TD SCH (15:19)
--- NOTE | 2018-02-13 15:55 | PN ---
Physical Exam: SUBJECTIVE: Patient seen and examined at bedside. present. Patient agrees to tube feed tonight. Says he never refused. OBJECTIVE: Vital Signs Period Temp Pulse Resp BP Sys/Shrestha Pulse Ox Last 24 Hr 97.8 F-98.9 F 92-98 18-20 109-128/48-79 99-99 GENERAL: The patient is awake, alert, and fully oriented, in no acute distress. ENT: Trach collar LUNGS: CTA HEART: Regular rate and rhythm, S1, S2 ABDOMEN: Soft, nontender, nondistended, normoactive bowel sounds; + PEG; surrounding skin dry, intact EXTREMITIES: 2+ pulses, warm, well-perfused, no edema, no calf tenderness NEUROLOGICAL: Cranial nerves II through XII grossly intact. Laboratory Results - last 24 hr 02/13/18 07:10 Sodium 130 L Potassium 4.8 Chloride 99 Carbon Dioxide 26 Anion Gap 5 L BUN 8 Creatinine 0.5 L Creat Clearance w eGFR > 60 Random Glucose 120 H D Calcium 7.2 L Total Bilirubin 0.2 D AST 25 D ALT 32 D Alkaline Phosphatase 176 H Total Protein 6.3 L Albumin 2.9 L Active Medications Generic Name Dose Route Start Last Admin Trade Name Freq PRN Reason Stop Dose Admin Amino Acids 30 ml 02/12/18 17:30 02/13/18 07:55 Prosource No Carb Liquid Pkt PO 30 ml BID@0800,1730 YUKO Administration Calcitriol 0.25 mcg 02/09/18 14:30 02/13/18 10:25 Rocaltrol Liquid - PEG 0.25 mcg BID YUKO Administration Calcium Carbonate/Cholecalciferol 2 tab 02/09/18 14:17 02/13/18 10:25 Os-You 500+D - PO 2 tab BID YUKO Administration Enoxaparin Sodium 40 mg 02/05/18 22:00 02/13/18 10:25 Lovenox - SQ 40 mg DAILY YUKO Administration Fentanyl 1 patch 02/07/18 13:15 02/13/18 15:19 Duragesic 25mcg Patch - TD 02/14/18 13:13 1 patch Q72H YUKO Administration Levothyroxine Sodium 112 mcg 02/11/18 07:00 02/13/18 06:52 Synthroid - PO 112 mcg DAILY@0700 YUKO Administration Miscellaneous 1 each 02/07/18 13:13 02/10/18 14:53 Duragesic Patch Waste TD 1 each PRN PRN Administration PAIN Sodium Chloride 1 gm 02/11/18 16:30 02/13/18 10:25 Sodium Chloride Tablet - GT 1 gm BID YUKO Administration ASSESSMENT/PLAN 57 year-old male with a PMH significant for laryngeal cancer s/p laryngectomy and trach placement (August 2017) with metastases to right hip, s/p chemo 2 weeks ago. Admitted with AMS and rigors. 1. Metastatic laryngeal ca s/p laryngectomy - Brain MRI with ml- prominence of L head of caudate with no enhancement. 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 Branham in one week - Send with CDs of the MRI to be taken to [place] 2. Hyponatremia, improved - Na 130 - continue salt tabs 1 BID - Restrict free water with feeds - Renal following 3. Hypocalcemia, improved - corrected 8.1 - Continue calcitriol 0.25mcg BID - Continue supplementation 4. Hyperkalemia - Resolved 5. Metabolic encephalopathy - Resolved 6. Sepsis - Empiric abx stopped, stable - Unknown source 7. Hypothyroidism - Further increase synthroid to 112mcg recheck in 1 month 8. Severe malnutrition - With stage II pressure ulcer - Poor PO intake - Continue jevity TF here 8p-8a - Prosource 9. DVT ppx - Lovenox 40mg sq Visit type - Emergency Visit Emergency Visit: Yes ED Registration Date: 02/05/18 Care time: The patient presented to the Emergency Department on the above date and was hospitalized for further evaluation of their emergent condition. - New Patient This patient is new to me today: No - Critical Care Critical Care patient: No
--- NOTE | 2018-02-13 16:14 | PN ---
Progress Note, Physician History of Present Illness: Pt seen and examined at bedside. He is awake and alert. He is tolerating diet. He does not want tube feeds. - Current Medication List Current Medications: Active Medications Amino Acids (Prosource No Carb Liquid Pkt) 30 ml PO BID@0800,1730 [facility] Last Admin: 02/13/18 07:55 Dose: 30 ml Calcitriol (Rocaltrol Liquid -) 0.25 mcg PEG BID [facility] Last Admin: 02/13/18 10:25 Dose: 0.25 mcg Calcium Carbonate/Cholecalciferol (Os-You 500+D -) 2 tab PO BID [facility] Last Admin: 02/13/18 10:25 Dose: 2 tab Enoxaparin Sodium (Lovenox -) 40 mg SQ DAILY [facility] Last Admin: 02/13/18 10:25 Dose: 40 mg Fentanyl (Duragesic 25mcg Patch -) 1 patch TD Q72H [facility] Stop: 02/14/18 13:13 Last Admin: 02/13/18 15:19 Dose: 1 patch Levothyroxine Sodium (Synthroid -) 112 mcg PO DAILY@0700 [facility] Last Admin: 02/13/18 06:52 Dose: 112 mcg Miscellaneous (Duragesic Patch Waste) 1 each TD PRN PRN PRN Reason: PAIN Last Admin: 02/10/18 14:53 Dose: 1 each Sodium Chloride (Sodium Chloride Tablet -) 1 gm GT BID [facility] Last Admin: 02/13/18 10:25 Dose: 1 gm - Objective Vital Signs: Vital Signs Temperature 98.6 F 02/13/18 14:10 Pulse Rate 94 H 02/13/18 14:10 Respiratory Rate 20 02/13/18 14:10 Blood Pressure 109/69 02/13/18 14:10 O2 Sat by Pulse Oximetry (%) 99 02/13/18 09:00 Constitutional: Yes: Calm Eyes: Yes: Conjunctiva Clear HENT: Yes: Atraumatic Neck: Yes: Supple Cardiovascular: Yes: S1, S2 Respiratory: Yes: CTA Bilaterally Gastrointestinal: Yes: Soft, Other (peg) Genitourinary: Yes: WNL Breast(s): Yes: WNL Edema: No Neurological: Yes: Oriented Psychiatric: Yes: Oriented Labs: CBC, BMP 02/09/18 09:20 02/13/18 07:10 INR, PTT INR 1.17 (0.82-1.09) H 02/05/18 13:10 Problem List - Problems (1) Hyponatremia Code(s): E87.1 - HYPO-OSMOLALITY AND HYPONATREMIA (2) Hypocalcemia Code(s): E83.51 - HYPOCALCEMIA (3) Sepsis Code(s): A41.9 - SEPSIS, UNSPECIFIED ORGANISM Qualifiers: Sepsis type: sepsis due to unspecified organism Qualified Code(s): A41.9 - Sepsis, unspecified organism (4) Status post laryngectomy Code(s): Z90.02 - ACQUIRED ABSENCE OF LARYNX Assessment/Plan Current Medications Generic Name Dose Route Start Last Admin Trade Name Freq PRN Reason Stop Dose Admin Amino Acids 30 ml 02/12/18 17:30 02/13/18 07:55 Prosource No Carb Liquid Pkt PO 30 ml BID@0800,1730 YUKO Administration Calcitriol 0.25 mcg 02/09/18 14:30 02/13/18 10:25 Rocaltrol Liquid - PEG 0.25 mcg BID YUKO Administration Calcium Carbonate/Cholecalciferol 2 tab 02/09/18 14:17 02/13/18 10:25 Os-You 500+D - PO 2 tab BID YUKO Administration Enoxaparin Sodium 40 mg 02/05/18 22:00 02/13/18 10:25 Lovenox - SQ 40 mg DAILY YUKO Administration Fentanyl 1 patch 02/07/18 13:15 02/13/18 15:19 Duragesic 25mcg Patch - TD 02/14/18 13:13 1 patch Q72H YUKO Administration Levothyroxine Sodium 112 mcg 02/11/18 07:00 02/13/18 06:52 Synthroid - PO 112 mcg DAILY@0700 YUKO Administration Miscellaneous 1 each 02/07/18 13:13 02/10/18 14:53 Duragesic Patch Waste TD 1 each PRN PRN Administration PAIN Sodium Chloride 1 gm 02/11/18 16:30 02/13/18 10:25 Sodium Chloride Tablet - GT 1 gm BID YUKO Administration Laboratory Tests 02/08/18 21:00 PTH Intact 78 H Impression 1. hyponatremia 2. hypocalcemia 3. laryngeal cancer 4. s/p trache 5. hypothyroidism Plan - sodium has been improving with saline - will give another 500 cc today - repeat labs in am - cont calcium supplements - will need to repeat tsh level as dose was changed - spoke to pts , he is not compliant with calcium supplements at home - will follow
[2018-02-13] MEDS ORDERED: SODIUM CHLORIDE 1,000 ML IV SCH (16:15)
--- NOTE | 2018-02-13 17:57 | PN ---
Progress Note, Physician - Current Medication List Current Medications: Active Medications Amino Acids (Prosource No Carb Liquid Pkt) 30 ml PO BID@0800,1730 [facility] Last Admin: 02/13/18 07:55 Dose: 30 ml Calcitriol (Rocaltrol Liquid -) 0.25 mcg PEG BID [facility] Last Admin: 02/13/18 10:25 Dose: 0.25 mcg Calcium Carbonate/Cholecalciferol (Os-You 500+D -) 2 tab PO BID [facility] Last Admin: 02/13/18 10:25 Dose: 2 tab Enoxaparin Sodium (Lovenox -) 40 mg SQ DAILY [facility] Last Admin: 02/13/18 10:25 Dose: 40 mg Fentanyl (Duragesic 25mcg Patch -) 1 patch TD Q72H [facility] Stop: 02/14/18 13:13 Last Admin: 02/13/18 15:19 Dose: 1 patch Sodium Chloride (Normal Saline -) 1,000 mls @ 100 mls/hr IV ASDIR [facility] Stop: 02/13/18 22:14 Levothyroxine Sodium (Synthroid -) 112 mcg PO DAILY@0700 [facility] Last Admin: 02/13/18 06:52 Dose: 112 mcg Miscellaneous (Duragesic Patch Waste) 1 each TD PRN PRN PRN Reason: PAIN Last Admin: 02/10/18 14:53 Dose: 1 each Sodium Chloride (Sodium Chloride Tablet -) 1 gm GT BID [facility] Last Admin: 02/13/18 10:25 Dose: 1 gm - Objective Vital Signs: Vital Signs Temperature 98.6 F 02/13/18 14:10 Pulse Rate 94 H 02/13/18 14:10 Respiratory Rate 20 02/13/18 14:10 Blood Pressure 109/69 02/13/18 14:10 O2 Sat by Pulse Oximetry (%) 99 02/13/18 09:00 Labs: CBC, BMP 02/09/18 09:20 02/13/18 07:10 INR, PTT INR 1.17 (0.82-1.09) H 02/05/18 13:10
--- NOTE | 2018-02-13 22:04 | PN ---
Progress Note (short form) - Note Progress Note: patient seen and examined denies any complaints Last Vital Signs Temp Pulse Resp BP Pulse Ox 98.7 F 97 H 20 120/79 99 02/13/18 18:00 02/13/18 18:00 02/13/18 18:00 02/13/18 18:00 02/13/18 09:00 Cor: RSR, No murmurs, No gallops Lungs: Clear to P&A Abd: Soft, Normal bowel sounds, No organomegaly Ext:No significant edema Abnormal Lab Results 02/13/18 07:10 Sodium 130 L Anion Gap 5 L Creatinine 0.5 L Random Glucose 120 H D Calcium 7.2 L Alkaline Phosphatase 176 H Total Protein 6.3 L Albumin 2.9 L Active Medications Generic Name Dose Route Start Last Admin Trade Name Freq PRN Reason Stop Dose Admin Amino Acids 30 ml 02/12/18 17:30 02/13/18 18:31 Prosource No Carb Liquid Pkt PO 30 ml BID@0800,1730 YUKO Administration Calcitriol 0.25 mcg 02/09/18 14:30 02/13/18 22:22 Rocaltrol Liquid - PEG 0.25 mcg BID YUKO Administration Calcium Carbonate/Cholecalciferol 2 tab 02/09/18 14:17 02/13/18 22:22 Os-You 500+D - PO 2 tab BID YUKO Administration Enoxaparin Sodium 40 mg 02/05/18 22:00 02/13/18 10:25 Lovenox - SQ 40 mg DAILY YUKO Administration Fentanyl 1 patch 02/07/18 13:15 02/13/18 15:19 Duragesic 25mcg Patch - TD 02/14/18 13:13 1 patch Q72H YUKO Administration Levothyroxine Sodium 112 mcg 02/11/18 07:00 02/13/18 06:52 Synthroid - PO 112 mcg DAILY@0700 YUKO Administration Miscellaneous 1 each 02/07/18 13:13 02/10/18 14:53 Duragesic Patch Waste TD 1 each PRN PRN Administration PAIN Sodium Chloride 1 gm 02/11/18 16:30 02/13/18 22:22 Sodium Chloride Tablet - GT 1 gm BID YUKO Administration a/p metastatic Laryngeal carcinoma. also with compression fx T12, L4/5. Lytic lesions in rt. acetabulum s/p RT to the hip recently MRI spine reviewed, no cord compression f/u with primary oncologist
[2018-02-14] MEDS: LEVOTHYROXINE NA 112 MCG TABLET (FP) PO SCH (06:31)
[2018-02-14 08:12] LABS: CHLORIDE 97 mmol/L (98-107); POTASSIUM 4.5 mmol/L (3.5-5.1); SODIUM 132 mmol/L (136-145)
[2018-02-14] MEDS: AMINO ACIDS/PROTEIN HYDROLYS 30 ML LIQUID.PKT PO SCH ×2 (08:19→17:21)
[2018-02-14 08:22] LABS: ALBUMIN 2.9 g/dl (3.4-5.0); ALK PHOS 185 U/L (45-117); ANION GAP 8 (8-16); BILIRUBIN,TOTAL 0.2 mg/dL (0.2-1.0); BLOOD UREA NITROGEN 8 mg/dL (7-18); CALCIUM 7.4 mg/dL (8.5-10.1); CO2 27 mmol/L (21-32); CREATININE 0.5 mg/dL (0.7-1.3); GLUCOSE,RANDOM 101 mg/dL (74-106); MAGNESIUM 1.7 mg/dL (1.8-2.4); SGOT/AST 23 U/L (15-37); SGPT/ALT 25 U/L (12-78); TOT PROT 6.2 g/dl (6.4-8.2)
[2018-02-14] MEDS ORDERED: PT OWN MED DRAWER 7, Y5N ONE (10:42)
[2018-02-14] MEDS: SODIUM CHLORIDE 1 GM TABLET GT SCH (10:47)
[2018-02-14] MEDS: CALCIUM 500MG/VIT-D 200 UNITS COMBO TABLET (FP) PO SCH (10:47)
[2018-02-14] MEDS: ENOXAPARIN NA (PORCINE) 40 MG/0.4 ML DISP.SYRIN SQ SCH (10:47)
[2018-02-14] MEDS: CALCITRIOL 1 MCG/ML BOT PEG SCH (10:48)
--- NOTE | 2018-02-14 11:18 | DS ---
Physical Exam: SUBJECTIVE: Patient seen and examined at bedside. OBJECTIVE: Vital Signs Period Temp Pulse Resp BP Sys/Shrestha Pulse Ox Last 24 Hr 98.1 F-99.1 F 89-97 19-20 109-121/69-79 98-99 PHYSICAL EXAM GENERAL: The patient is awake, alert, and fully oriented, in no acute distress. ENT: Trach collar LUNGS: CTA HEART: Regular rate and rhythm, S1, S2 ABDOMEN: Soft, nontender, nondistended, normoactive bowel sounds; + PEG; surrounding skin dry, intact EXTREMITIES: 2+ pulses, warm, well-perfused, no edema, no calf tenderness NEUROLOGICAL: Cranial nerves II through XII grossly intact. LABS Laboratory Results - last 24 hr 02/14/18 07:10 Sodium 132 L Potassium 4.5 Chloride 97 L Carbon Dioxide 27 Anion Gap 8 BUN 8 Creatinine 0.5 L Creat Clearance w eGFR > 60 Random Glucose 101 Calcium 7.4 L Magnesium 1.7 L Total Bilirubin 0.2 AST 23 ALT 25 D Alkaline Phosphatase 185 H Total Protein 6.2 L Albumin 2.9 L HOSPITAL COURSE: Date of Admission:02/05/18 Date of Discharge: 02/14/18 Pre hospital course Patient is a 57 year old male with a significant past medical history of 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 He has metastatic disease to the right hip and is usually on a Fentanyl patch for pain management. He is s/p chemotherapy apx 2 weeks ago. states that up until early last fall patient was well, healthy. He then began to have voice hoarseness and was diagnosed with a large laryngeal tumor. He had his voice box removed August 2017 and subsequently had a trach and Peg tube placed. She reports that her never smoked or drank. She further states that in the past few months patient was able to ambulate with a rolling walker and was able to make his needs known by either writing or by mouthing his words. He gets about 4 cans of Jevity via his peg tube daily but she noticed that he had increased weight loss in the past few months. She also stated that last week, he was complaining of abdominal pain and had some distention around the G tube site. She thought that he may have been constipated and initiated a bowel regimen. After he had a BM he still had pain and a tender abdomen. His last chemo was 2 weeks ago, she is unsure if he had received Neupogen. He was brought in to the ED today for altered mentation and rigors. He was at home with her and became restless overnight. This morning she found him minimally responsive which prompted an ED visit. 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 Branham in one week - Send with CDs of the MRI to be taken to [place] Hyponatremia, improved - Na 132 on date of discharge - continue salt tabs 1 BID - Restrict free water with feeds Hypocalcemia, improved - corrected 8.3 on date of discharge - Continue calcitriol 0.25mcg BID - Continue supplementation Hyperkalemia - Resolved Metabolic encephalopathy - Resolved Sepsis - Empiric abx stopped, stable Hypothyroidism - Increased synthroid to 112mcg, recheck levels in 1 month Severe malnutrition - With stage II pressure ulcer - Poor PO intake - Continue jevity TF here 8p-8a - Prosource DISCHARGE TO HOME WITH VNS SERVICES. NEEDS SPEECH EVALUATION. Minutes to complete discharge: 35 Discharge Summary Reason For Visit: SEPSIS Current Active Problems Hypocalcemia (Acute) Hyponatremia (Acute) Sepsis (Acute) Status post laryngectomy (Acute) Condition: Guarded - Instructions Referrals: ON STAFF,NOT [Primary Care Provider] - - Home Medications Comprehensive Discharge Medication List: Ambulatory Orders Naproxen 250 mg PO BID PRN #15 tablet 07/21/17 This patient is new to me today: No Emergency Visit: Yes ED Registration Date: 02/05/18 Care time: The patient presented to the Emergency Department on the above date and was hospitalized for further evaluation of their emergent condition. Critical Care patient: No - Discharge Referral Referred to [facility] Med P.C.: No
--- NOTE | 2018-02-14 11:28 | PN ---
Progress Note, [facility] - Note Progress Note: Selected Entries 02/13/18 02/13/18 02/13/18 02:00 06:00 10:45 Breakfast Lunch Temperature 98.7 F 98.9 F 98.6 F 02/13/18 02/13/18 02/13/18 11:51 14:10 18:00 Breakfast 0 Lunch 75% Temperature 98.6 F 98.7 F 02/14/18 02/14/18 02/14/18 02:00 06:00 10:00 Breakfast Lunch Temperature 98.5 F 99.1 F 98.1 F 02/14/18 10:57 Breakfast 0 Lunch Temperature Tolerating diet. Appetite inconsistent. PEG feedings to supplement PO intake. Suggest: [facility] for Speech training/electrolarynx
[2018-02-14] MEDS ORDERED: MAGNESIUM OXIDE 400 MG TABLET (FP) PO ONE (11:45)
--- NOTE | 2018-02-14 13:22 | PN ---
Progress Note, Physician - Current Medication List Current Medications: Active Medications Amino Acids (Prosource No Carb Liquid Pkt) 30 ml PO BID@0800,1730 [facility] Last Admin: 02/14/18 08:19 Dose: 30 ml Calcitriol (Rocaltrol Liquid -) 0.25 mcg PEG BID [facility] Last Admin: 02/14/18 10:48 Dose: 0.25 mcg Calcium Carbonate/Cholecalciferol (Os-You 500+D -) 2 tab PO BID [facility] Last Admin: 02/14/18 10:47 Dose: 2 tab Enoxaparin Sodium (Lovenox -) 40 mg SQ DAILY [facility] Last Admin: 02/14/18 10:47 Dose: 40 mg Levothyroxine Sodium (Synthroid -) 112 mcg PO DAILY@0700 [facility] Last Admin: 02/14/18 06:31 Dose: 112 mcg Miscellaneous (Duragesic Patch Waste) 1 each TD PRN PRN PRN Reason: PAIN Last Admin: 02/10/18 14:53 Dose: 1 each Sodium Chloride (Sodium Chloride Tablet -) 1 gm GT BID [facility] Last Admin: 02/14/18 10:47 Dose: 1 gm - Objective Vital Signs: Vital Signs Temperature 98.1 F 02/14/18 10:00 Pulse Rate 89 02/14/18 10:00 Respiratory Rate 19 02/14/18 10:00 Blood Pressure 119/78 02/14/18 10:00 O2 Sat by Pulse Oximetry (%) 98 02/14/18 09:00 Labs: CBC, BMP 02/09/18 09:20 02/14/18 07:10 INR, PTT INR 1.17 (0.82-1.09) H 02/05/18 13:10
--- NOTE | 2018-02-14 13:51 | PN ---
Progress Note, Physician History of Present Illness: Pt seen and examined at bedside. He is awake and appears comfortable. - Current Medication List Current Medications: Active Medications Amino Acids (Prosource No Carb Liquid Pkt) 30 ml PO BID@0800,1730 [facility] Last Admin: 02/14/18 08:19 Dose: 30 ml Calcitriol (Rocaltrol Liquid -) 0.25 mcg PEG BID [facility] Last Admin: 02/14/18 10:48 Dose: 0.25 mcg Calcium Carbonate/Cholecalciferol (Os-You 500+D -) 2 tab PO BID [facility] Last Admin: 02/14/18 10:47 Dose: 2 tab Enoxaparin Sodium (Lovenox -) 40 mg SQ DAILY [facility] Last Admin: 02/14/18 10:47 Dose: 40 mg Levothyroxine Sodium (Synthroid -) 112 mcg PO DAILY@0700 [facility] Last Admin: 02/14/18 06:31 Dose: 112 mcg Miscellaneous (Duragesic Patch Waste) 1 each TD PRN PRN PRN Reason: PAIN Last Admin: 02/10/18 14:53 Dose: 1 each Sodium Chloride (Sodium Chloride Tablet -) 1 gm GT BID [facility] Last Admin: 02/14/18 10:47 Dose: 1 gm - Objective Vital Signs: Vital Signs Temperature 98.1 F 02/14/18 10:00 Pulse Rate 89 02/14/18 10:00 Respiratory Rate 19 02/14/18 10:00 Blood Pressure 119/78 02/14/18 10:00 O2 Sat by Pulse Oximetry (%) 98 02/14/18 09:00 Constitutional: Yes: Calm Eyes: Yes: Conjunctiva Clear HENT: Yes: Atraumatic Neck: Yes: Supple Cardiovascular: Yes: S1, S2 Respiratory: Yes: CTA Bilaterally Gastrointestinal: Yes: Soft, Other (peg) Genitourinary: Yes: WNL Musculoskeletal: Yes: WNL Edema: No Neurological: Yes: Oriented Psychiatric: Yes: Oriented Labs: CBC, BMP 02/09/18 09:20 02/14/18 07:10 INR, PTT INR 1.17 (0.82-1.09) H 02/05/18 13:10 Problem List - Problems (1) Hyponatremia Code(s): E87.1 - HYPO-OSMOLALITY AND HYPONATREMIA (2) Hypocalcemia Code(s): E83.51 - HYPOCALCEMIA (3) Sepsis Code(s): A41.9 - SEPSIS, UNSPECIFIED ORGANISM Qualifiers: Sepsis type: sepsis due to unspecified organism Qualified Code(s): A41.9 - Sepsis, unspecified organism (4) Status post laryngectomy Code(s): Z90.02 - ACQUIRED ABSENCE OF LARYNX Assessment/Plan Current Medications Generic Name Dose Route Start Last Admin Trade Name Freq PRN Reason Stop Dose Admin Amino Acids 30 ml 02/12/18 17:30 02/14/18 08:19 Prosource No Carb Liquid Pkt PO 30 ml BID@0800,1730 YUKO Administration Calcitriol 0.25 mcg 02/09/18 14:30 02/14/18 10:48 Rocaltrol Liquid - PEG 0.25 mcg BID YUKO Administration Calcium Carbonate/Cholecalciferol 2 tab 02/09/18 14:17 02/14/18 10:47 Os-You 500+D - PO 2 tab BID YUKO Administration Enoxaparin Sodium 40 mg 02/05/18 22:00 02/14/18 10:47 Lovenox - SQ 40 mg DAILY YUKO Administration Levothyroxine Sodium 112 mcg 02/11/18 07:00 02/14/18 06:31 Synthroid - PO 112 mcg DAILY@0700 YUKO Administration Miscellaneous 1 each 02/07/18 13:13 02/10/18 14:53 Duragesic Patch Waste TD 1 each PRN PRN Administration PAIN Sodium Chloride 1 gm 02/11/18 16:30 02/14/18 10:47 Sodium Chloride Tablet - GT 1 gm BID YUKO Administration Impression 1. hyponatremia 2. hypocalcemia 3. laryngeal cancer 4. s/p trache 5. hypothyroidism Plan - sodium improving - will give more saline - encourage PO intake - will need to cont calcium supplements, discussed compliance - will need close outpt follow up to evaluate his lytes - will follow
[2018-02-14] MEDS ORDERED: SODIUM CHLORIDE 1,000 ML IV SCH (14:00)
[2018-02-14 18:09] VITALS: BP 122/80; PULSE 92; TEMP 98.7
== END 2018-02-14 18:40 | disposition home or self-care (01) | DRG 871 ==
LOC: JER 04:29 → JERBED 10:46 → J5S 21:39
PROVIDERS: ADMIT Internal Medicine; ATTEND Nurse Practitioner Acute Care
PROC: 3E0G76Z Introduction of Nutritional Substance into Upper GI, Via Natural or Artificial Opening (ICD-10-PCS; principal; 2018-02-06)
DX: A41.9 Sepsis, unspecified organism (principal); G93.41 Metabolic encephalopathy; E43 Unspecified severe protein-calorie malnutrition; G95.19 Other vascular myelopathies; E87.2 Acidosis; C79.89 Secondary malignant neoplasm of other specified sites; R64 Cachexia; E87.1 Hypo-osmolality and hyponatremia; M48.54XA Collapsed vertebra, not elsewhere classified, thoracic region, initial encounter for fracture; C79.51 Secondary malignant neoplasm of bone; R50.9 Fever, unspecified; R00.0 Tachycardia, unspecified; E87.5 Hyperkalemia; C32.9 Malignant neoplasm of larynx, unspecified; Z68.20 Body mass index [BMI] 20.0-20.9, adult; E83.51 Hypocalcemia; L89.152 Pressure ulcer of sacral region, stage 2; I10 Essential (primary) hypertension; E86.0 Dehydration; M79.604 Pain in right leg; E03.9 Hypothyroidism, unspecified; Z93.1 Gastrostomy status; Z93.0 Tracheostomy status; Z90.02 Acquired absence of larynx; M50.323 Other cervical disc degeneration at C6-C7 level
CPT/HCPCS: 36415; 70450-TC; 70551-TC; 70552-TC; 71045-TC-FY; 72156-TC; 72157-TC; 72158-TC; 74176-TC; 80048; 80053; 81003; 81015; 82140; 82310; 82436; 82533; 82550; 82553; 82962; 83605; 83735; 83930; 83935; 83970; 84100; 84132; 84133; 84300; 84443; 84484; 85025; 85027; 85610; 85730; 87040; 87086; 90670; 93005; 93010; 97116-GP; 97161-GP; 99285-25; J0131; J7030

== ENCOUNTER 2018-04-16 00:46 | Inpatient (IN) | payer OTHER ==
[2018-04-16] MEDS ORDERED: SODIUM CHLORIDE 1,000 ML IV STA ×4 (00:58→18:16)
[2018-04-16] MEDS ORDERED: VANCOMYCIN 1,000 MG in DEXTROSE 5%-WATER - 250 ML IVPB ONE (01:10)
[2018-04-16] MEDS ORDERED: PIPERACILLIN/TAZOB 4.5 GM 4.5 GM in DEXTROSE 5%-WATER 100 ML IVPB ONE (01:10)
--- NOTE | 2018-04-16 01:10 | PDOC ---
History of Present Illness - General Stated Complaint: CLOGGED TRACH Time Seen by Provider: 04/16/18 00:58 - History of Present Illness Initial Comments: 04/16/18 01:48 The patient is a 58 year old male with a history of laryngeal cancer s/p trach and g tube who presents for evaluate of fever and SOB. The patient is accompanied by his who assists in providing the history. The family is somewhat poor historians. They note worsening fevers, and difficulty breathing over the past few days prompting their presentation to the ED for further evaluation. EMS notes that the does not suction the patient's trach and EMS suctioned the patient's trach with purulent sputum. The patient is unable to participate in ROS at this time. Past History - Past Medical History Allergies/Adverse Reactions: Allergies Allergy/AdvReac Type Severity Reaction Status Date / Time No Known Allergies Allergy Verified 04/16/18 01:31 Home Medications: Ambulatory Orders Calcitriol [Rocaltrol -] 0.25 mcg PEG BID #60 bot 02/14/18 Calcium 500Mg/Vit-D 200 Units [Os-You 500+D -] 2 tab PO BID #120 tab 02/14/18 FENTANYL 25mcg PATCH [DURAGESIC 25mcg PATCH -] 1 patch TD Q72H 7 Days #1 box MDD 1 02/14/18 Sodium Chloride Tablet - 1 gm GT BID #60 tablet 02/14/18 Cancer: Yes (throat , METS to bone in Rt hip) COPD: No - Suicide/Smoking/Psychosocial Hx Smoking Status: No Smoking History: Unknown if ever smoked Have you smoked in the past 12 months: No Number of Cigarettes Smoked Daily: 0 Hx Alcohol Use: No Drug/Substance Use Hx: No Substance Use Type: None Review of Systems - Review of Systems Able to Perform ROS?: No (Sepsis with AMS) *Physical Exam - Physical Exam Comments: 04/16/18 01:57 General Appearance: Nourished. In Moderate Apparent Distress HEENT: EOMI, ABDIRAHMAN. No Pharyngeal Erythema, Tonsillar Exudate, Tonsillar Erythema Neck: Trach in place. No Cervical Lymphadenopathy Respiratory/Chest: Diffuse Crackles auscultated on exam. No Wheezing Cardiovascular: Regular Rhythm, Regular Rate. No Murmur, Gallops, Rubs Gastrointestinal/Abdominal: Normal Bowel Sounds, Soft. G-tube in place. No Guarding, Rebound, Tenderness Musculoskeletal: No CVA Tenderness Extremity: Normal Capillary Refill Integumentary: Normal Color, Dry, Warm Neurologic: Trach in place. Alert. Minimally responsive ED Treatment Course - LABORATORY CBC & Chemistry Diagram: 04/16/18 02:12 04/16/18 02:12 - RADIOLOGY Radiology Studies Ordered: Category Date Time Status CHEST X-RAY PORTABLE* [RAD] Stat Radiology 04/16/18 00:58 Ordered Medical Decision Making - Medical Decision Making 04/16/18 02:00 The patient is a 58 year old male with a history of laryngeal cancer s/p trach and g tube who presents for evaluate of fever and SOB. Differential includes but is not limited to: Sepsis, Pneumonia, Intra-abdominal pathology, infectious , metabolic derangement. Given the patient's history and physical exam, it is likely the patient is septic due to a pneumonia. We will obtain a cbc, cmp, troponin, abg, vbg, lactate, chest plain film, blood cultures, ua, urine cultures, ekg, chest and abdomen ct to evaluate further. We will treat with iv fluids, iv tylenol, vanc, and zosyn here in the ED and continue to closely monitor and reassess. Likely ICU admission given the patient's severe sepsis. 04/16/18 06:01 CBC demonstrates a wbc to 1.2. CMP is unremarkable. Lactate demonstrates an elevation to 3.1. Chest plain film demonstrates infiltrate on the right and complete opacity of the left lung as preliminarily read by ER physician. We discussed the case with the ICU SURGICAL GARMENT INSPECTOR who accepted the patient for ICU. We discussed the case with hospitalist team who accepted the patient for admission. *DC/Admit/Observation/Transfer Diagnosis at time of Disposition: Sepsis Qualifiers: Sepsis type: sepsis due to unspecified organism Qualified Code(s): A41.9 - Sepsis, unspecified organism Pneumonia Qualifiers: Pneumonia type: due to unspecified organism Laterality: unspecified laterality Lung location: unspecified part of lung Qualified Code(s): J18.9 - Pneumonia, unspecified organism - Discharge Dispostion Condition at time of disposition: Guarded Decision to Admit order: Yes - Referrals - Patient Instructions - Post Discharge Activity
--- NOTE | 2018-04-16 01:14 | PDOC ---
Attending Attestation - Resident Resident Name: MakaylaKash - ED Attending Attestation I have performed the following: I have examined & evaluated the patient, The case was reviewed & discussed with the resident, I agree w/resident's findings & plan, Exceptions are as noted - HPI HPI: 04/16/18 01:13 Mr Ward is a 58 yo M who presents to the ER via EMS due to fevers Patient has a h/o metastatic laryngeal cancer s/p trach placement on August 2017 His last chemo was 2 weeks ago, she is unsure if he had received Neupogen. Pt reports fever this evening - He was brought in to the ED today for altered mentation and rigors. He was at home with her and became restless overnight. This morning she found him minimally responsive which prompted an ED visit. Oncologist: Dr. Branham - Physicial Exam PE: 04/19/18 10:43 GENERAL: Mild distress, awake, alert, agitated, thin-appearing HEENT: SEVEN, sclera anicteric, dry mucosa w/o exudates or plaques appreciated, temporal wasting noted NECK: Tracheostomy site noted with no overt secretions exuding from opening LUNGS: Diminished L breath sounds compared to R, diffuse rhonchi throughout L santiago. No wheezes, and no crackles. No accessory muscle use. HEART: Tachycardic with regular rhythm, normal S1 and S2 without murmur ABDOMEN: Soft, nontender, not distended, normoactive bowel sounds, no guarding, no rebound, no masses. No hepatomegaly MUSCULOSKELETAL: No CVA tenderness. UPPER EXTREMITIES: 2+ DP pulses, warm, well-perfused. No peripheral edema. NEUROLOGICAL: Cannot thoroughly assess due to agitation, confusion, nonverbal SKIN: Warm, dry, no rashes or lesions noted, No sacral decubiti appreciated - Medical Decision Making Mr Ward is a 58 yo M who presents to the ER via EMS with due to shortness of breath, respiratory distress Pt has metastatic laryngeal cancer Pt placed on trach collar for hypoxia Sepsis order set Empiric abx Will do CT chest , abd, pelvis (pt apparently reported some abdominal pain 2 days ago) Pt signed out to overnight attending Clinical Impression: Likely pneumonia, initial presentation Sepsis, initial presentation Hypoxia, initial presentation
[2018-04-16] MEDS ORDERED: PIPERACILLIN/TAZOB 4.5 GM 4.5 GM/100 ML BAG IVPB ONE (01:41)
[2018-04-16 01:50] LABS: ARTERIAL BLD GAS O2 SATURATION 79.2 % (90-98.9); ARTERIAL BLOOD GAS BASE EXCESS 2.2 meq/l (-2-2); ARTERIAL BLOOD GAS pH 7.46 (7.35-7.45)
[2018-04-16 01:51] LABS: ALLENS TEST POSITIVE
[2018-04-16] MEDS ORDERED: ACETAMINOPHEN 1000 MG/100 ML VIAL (NON FORMULARY) IVPB ONE (02:02)
[2018-04-16 02:25] LABS: HEMATOCRIT 40.9 % (35.4-49); HEMOGLOBIN 13.3 GM/dL (11.7-16.9); MCH 31.2 pg (25.7-33.7); MCHC 32.6 g/dl (32.0-35.9); MEAN CELL VOLUME 95.8 fl (80-96); MEAN PLT VOLUME 6.5 fl (7.5-11.1); PLATELET COUNT 390 K/MM3 (134-434); RBC 4.27 M/mm3 (4.00-5.60)
[2018-04-16 02:43] LABS: WHITE BLOOD COUNT 1.2 K/mm3 (4.0-10.0)
[2018-04-16 02:46] LABS: INR 1.18 (0.82-1.09); PROTHROMBIN TIME (PATIENT) 13.3 SEC (9.7-13.0)
[2018-04-16 02:49] LABS: ACTIVATED PTT 28.9 SECONDS (26.9-34.4)
[2018-04-16] MEDS ORDERED: ACETAMINOPHEN INJECTION 100 ML IVPB ONE (02:49)
[2018-04-16 02:55] LABS: ALBUMIN 3.6 g/dl (3.4-5.0); ALK PHOS 188 U/L (45-117); ANION GAP 12 (8-16); BILIRUBIN,TOTAL 0.5 mg/dL (0.2-1.0); BLOOD UREA NITROGEN 18 mg/dL (7-18); CALCIUM 9.3 mg/dL (8.5-10.1); CHLORIDE 102 mmol/L (98-107); CO2 26 mmol/L (21-32); CREATININE 0.8 mg/dL (0.7-1.3); GLUCOSE,RANDOM 132 mg/dL (74-106); POTASSIUM 4.2 mmol/L (3.5-5.1); SGOT/AST 72 U/L (15-37); SGPT/ALT 43 U/L (12-78); SODIUM 140 mmol/L (136-145); TOT PROT 8.1 g/dl (6.4-8.2)
[2018-04-16] MEDS ORDERED: VANCOMYCIN 1 GRAM (PRE-DOCKED) 1,000 MG/250 ML BAG IVPB ONE (03:25)
[2018-04-16 04:13] LABS: PLATELET ESTIMATE ADEQUATE
[2018-04-16] MEDS ORDERED: HEPARIN NA (PORCINE) 5,000 UNITS/ML 1ML VIAL SQ SCH (06:00)
--- NOTE | 2018-04-16 06:11 | HP ---
CHIEF COMPLAINT: Fevers, rigors, agitation PCP: Dr. Mills Oncologist: Dr. Hilary Flores ([place]) --> sees more than his PCP HISTORY OF PRESENT ILLNESS: 58M with significant history of Laryngeal Ca (2016; Stage IV mets to R hip), s/p tracheostomy and PEG tube, and prior DVT s/p IVC filter placement who presents to the hospital after his noticed he was not acting himself and becoming very agitated. Pt is nonverbal and provides HPI. Pt's reports once he started becoming agitated she noticed the pt begin to shake like he was feverish and that is when EMS was called. Pt normally has some secretions from tracheostomy site, however, normally he can clear and expectorate the mucus. Per EMS, pt was suctions to find yellow-sputum in copious amounts w/o blood noted. Pt's denies any recent SOB, chest pain/ discomfort, abdominal pain, diarrhea, and constipation indicated by the pt recently. Per 's support, pt's baseline is active and able to walk with assist and can mouth words of what he wants. She reports currently he is very agitated and not acting like himself. Of note: Pt's last day of chemotherapy was noted to be in January per 's calendar that was with her. Unknown agent and pt began radiation therapy afterwards ER course was notable for: (1) Vanc 1gm x1; Zosyn 4.5gm x1 (2) 2LNS (3) CXR - my read of L lobe opacification; CT Chest - my read L pleural effusion noted with possible septum in fluid; R lobe PNA (4) Hypoxia down to 74%; s/p VM placed on patient's tracheostomy site Recent Travel: No PAST MEDICAL HISTORY: Laryngeal Ca (2016; Stage IV mets to R hip), s/p tracheostomy and PEG tube, and prior DVT s/p IVC filter placement PAST SURGICAL HISTORY: IVC filter placement Tracheostomy PEG tube insertion Social History: Smoking: Never Alcohol: None Drugs: None Family History: Allergies No Known Allergies Allergy (Verified 04/16/18 01:31) HOME MEDICATIONS: Home Medications Medication Instructions Recorded Calcitriol [Rocaltrol -] 0.25 mcg PEG BID #60 bot 02/14/18 Calcium 500Mg/Vit-D 200 Units 2 tab PO BID #120 tab 02/14/18 [Os-You 500+D -] FENTANYL 25mcg PATCH [DURAGESIC 1 patch TD Q72H 7 Days #1 box MDD 1 02/14/18 25mcg PATCH -] Sodium Chloride Tablet - 1 gm GT BID #60 tablet 02/14/18 REVIEW OF SYSTEMS (limited due to pt's clinical status; per ) CONSTITUTIONAL: Present: fever, chills, Absent: diaphoresis, generalized weakness, malaise, loss of appetite, weight change HEENT: Absent: rhinorrhea, nasal congestion, throat pain, throat swelling, difficulty swallowing, mouth swelling, ear pain, eye pain, visual changes CARDIOVASCULAR: Absent: chest pain, syncope, palpitations, irregular heart rate, lightheadedness , peripheral edema RESPIRATORY: Absent: cough, shortness of breath, dyspnea with exertion, orthopnea, wheezing, stridor, hemoptysis GASTROINTESTINAL: Absent: abdominal pain, abdominal distension, nausea, vomiting, diarrhea, constipation, melena, hematochezia GENITOURINARY: Absent: dysuria, frequency, urgency, hesitancy, hematuria, flank pain, genital pain MUSCULOSKELETAL: Absent: myalgia, arthralgia, joint swelling, back pain, neck pain SKIN: Absent: rash, itching, pallor HEMATOLOGIC/IMMUNOLOGIC: Present: Prone to clotting Absent: easy bleeding, easy bruising, lymphadenopathy, frequent infections PHYSICAL EXAMINATION Vital Signs - 24 hr 04/16/18 01:24 Temperature 100.4 F H Pulse Rate 127 H Respiratory 35 H Rate Blood Pressure 140/68 O2 Sat by Pulse 97 Oximetry (%) GENERAL: Mild distress, awake, alert, agitated, thin-appearing HEENT: SEVEN, sclera anicteric, dry mucosa w/o exudates or plaques appreciated, temporal wasting noted NECK: Tracheostomy site noted with no overt secretions exuding from opening LUNGS: Diminished L breath sounds compared to R, diffuse rhonchi throughout L santiago. No wheezes, and no crackles. No accessory muscle use. HEART: Tachycardic with regular rhythm, normal S1 and S2 without murmur ABDOMEN: Soft, nontender, not distended, normoactive bowel sounds, no guarding, no rebound, no masses. No hepatomegaly MUSCULOSKELETAL: No CVA tenderness. UPPER EXTREMITIES: 2+ DP pulses, warm, well-perfused. No peripheral edema. NEUROLOGICAL: Cannot thoroughly assess due to agitation, confusion, nonverbal SKIN: Warm, dry, no rashes or lesions noted, No sacral decubiti appreciated Laboratory Results - last 24 hr 04/16/18 04/16/18 04/16/18 01:40 02:12 02:12 WBC 1.2 L* D RBC 4.27 D Hgb 13.3 D Hct 40.9 D MCV 95.8 MCH 31.2 MCHC 32.6 RDW 16.0 H Plt Count 390 MPV 6.5 L Neutrophils % No Result Required. Neutrophils % (Manual) 67.0 Band Neutrophils % 12.0 Lymphocytes % No Result Required. Lymphocytes % (Manual) 6.0 L Monocytes % (Manual) 4 Nucleated RBC % 0 Metamyelocytes 1 Platelet Estimate Adequate Platelet Comment No clumping noted Polychromasia 1+ PT with INR 13.30 H INR 1.18 H PTT (Actin FS) 28.9 Anticoagulation Therapy No Result Required. Puncture Site Right brachial ABG pH 7.46 H ABG pCO2 at Pt Temp 36.0 ABG pO2 at Pt Temp 45.0 L* ABG HCO3 25.4 ABG O2 Sat (Measured) 79.2 L ABG O2 Content 12.7 L ABG Base Excess 2.2 H Luis Test Positive O2 Delivery Device Nrm Oxygen Flow Rate 100% Vent Mode No Result Required. Vent Rate No Result Required. Mechanical Rate No Result Required. Pressure Support Vent No Result Required. Sodium Potassium Chloride Carbon Dioxide Anion Gap BUN Creatinine Creat Clearance w eGFR Random Glucose Lactic Acid Calcium Total Bilirubin AST ALT Alkaline Phosphatase Troponin I Total Protein Albumin 04/16/18 04/16/18 04/16/18 02:12 02:12 02:15 WBC RBC Hgb Hct MCV MCH MCHC RDW Plt Count MPV Neutrophils % Neutrophils % (Manual) Band Neutrophils % Lymphocytes % Lymphocytes % (Manual) Monocytes % (Manual) Nucleated RBC % Metamyelocytes Platelet Estimate Platelet Comment Polychromasia PT with INR INR PTT (Actin FS) Anticoagulation Therapy Puncture Site ABG pH ABG pCO2 at Pt Temp ABG pO2 at Pt Temp ABG HCO3 ABG O2 Sat (Measured) ABG O2 Content ABG Base Excess Luis Test O2 Delivery Device Oxygen Flow Rate Vent Mode Vent Rate Mechanical Rate Pressure Support Vent Sodium 140 Potassium 4.2 Chloride 102 Carbon Dioxide 26 Anion Gap 12 BUN 18 D Creatinine 0.8 D Creat Clearance w eGFR > 60 Random Glucose 132 H D Lactic Acid 3.1 H* Calcium 9.3 D Total Bilirubin 0.5 D AST 72 H D ALT 43 D Alkaline Phosphatase 188 H Troponin I < 0.02 Total Protein 8.1 D Albumin 3.6 D ASSESSMENT/PLAN: 1) Severe sepsis 2/2 to ? aspiration PNA --LA 3.1; trend --IVF; 1L more NS bolus --Vancomycin 1gm and Zosyn 4.5 gm q8h to continue --ID consult ordered --Maintain SpO2 >90% --Aspiration precautions: HOB elevated --Tylenol 650mg GT q6h for fevers --Sputum culture if able to obtain 2) Neutropenic --Isolation precautions --Most likely due to sepsis, however possibility of last chemotherapy affecting his WBC --Monitor FEN: Fluids: s/p 2LNS in ED; one more bolus 1L Electrolyte abnormalities: None Nutrition: Pt has G-tube and can receive meds, but would hold off from feeds for now PPX: DVT - Heparin SQ Code Status: I discussed with pt's at bedside about goals of care and stated that pt would NOT want CPR or a breathing machine to keep him alive. She reports pt was at [facility] when he stated this wish and how he motioned to his saying, "she knows what I would want." DNR/DNI form signed by due to clinical condition and is in chart. Order applied to chart Dispo: ICU admission Case discussed with Dr. Carlton and Dr. Swathi Breaux, DO - IM PGY-1 Visit type - Emergency Visit Emergency Visit: Yes ED Registration Date: 04/16/18 Care time: The patient presented to the Emergency Department on the above date and was hospitalized for further evaluation of their emergent condition. - New Patient This patient is new to me today: Yes Date on this admission: 04/16/18 - Critical Care Critical Care patient: Yes Total Critical Care Time (in minutes): 35 Critical Care Statement: The care of this patient involved high complexity decision making to prevent further life threatening deterioration of the patient 's condition and/or to evaluate & treat vital organ system(s) failure or risk of failure. Hospitalist Screening - Colonoscopy Questionnaire Colonoscopy Questionnaire: Colonoscopy Questionnaire - Patient: 50 - 75 years old and never had a screening colonoscopy: Unknown History of colon or rectal polyps, or CA: Unknown History of IBD, Crohn's disease or UC: Unknown History of abdominal radiation therapy as a child: Unknown - Relative: 1 with colon or rectal CA, or polyps at age 60 or younger: Unknown Colon or rectal CA diagnosed at age 45 or younger: Unknown Multiple relatives with colon or rectal CA: Unknown - Outcome: Screening Result: Negative Screen
[2018-04-16] MEDS ORDERED: ACETAMINOPHEN 1000 MG/100 ML VIAL (NON FORMULARY) IVPB PRN (07:21)
[2018-04-16] MEDS ORDERED: AZITHROMYCIN IVPB 500 MG in DEXTROSE 5%-WATER - 250 ML IVPB ONE (07:25)
--- NOTE | 2018-04-16 07:38 | PN ---
Teaching Attending Note Name of Resident: Shay Breaux ATTENDING PHYSICIAN STATEMENT I saw and evaluated the patient. Chart, data, imaging reviewed. I reviewed the resident's note and discussed the case with the resident. I agree with the resident's findings and plan as documented. SUBJECTIVE: 58M with significant history of Laryngeal Ca (2017; Stage IV mets to R hip), s/ p tracheostomy and PEG tube, and prior DVT s/p IVC filter placement who presents to the hospital after his noticed he was not acting himself and becoming very agitated. Pt is nonverbal. Pt was also noted to have large amounts of secretions through trach. He is DNR/DNI- trach is not compatible with ventilator. OBJECTIVE: Last Vital Signs Temp Pulse Resp BP Pulse Ox 101.2 F H 132 H 26 H 115/78 97 04/16/18 07:25 04/16/18 07:25 04/16/18 07:25 04/16/18 07:25 04/16/18 05:52 General- nad, aaox3 heent - at, nc neck- trach + CV - s1+s2+ RRR Chest- CTA decreased air entry sounds over left abdomen- soft, nt, bs+ skin- no rashes appreciated Abnormal Lab Results 04/16/18 04/16/18 04/16/18 01:40 02:12 02:12 WBC 1.2 L* D RDW 16.0 H MPV 6.5 L Lymphocytes % (Manual) 6.0 L PT with INR 13.30 H INR 1.18 H ABG pH 7.46 H ABG pO2 at Pt Temp 45.0 L* ABG O2 Sat (Measured) 79.2 L ABG O2 Content 12.7 L ABG Base Excess 2.2 H Random Glucose Lactic Acid AST Alkaline Phosphatase 04/16/18 04/16/18 02:12 02:12 WBC RDW MPV Lymphocytes % (Manual) PT with INR INR ABG pH ABG pO2 at Pt Temp ABG O2 Sat (Measured) ABG O2 Content ABG Base Excess Random Glucose 132 H D Lactic Acid 3.1 H* AST 72 H D Alkaline Phosphatase [address] of chest reviewed. ASSESSMENT AND PLAN: #Severe sepsis secondary to multifocal pneumonia with atelectasis of left lung, resulting in hypoxemic resp failure. Neutropenia+ -admit to ICU -zosyn 3.375g IV q 6hrs -vancomycin g IV q12hrs -azithromycin 500mg IV daily -ID for abx approval -blood cultures x2 -sputum culture -urine legionella ag -supplemental oxygen -pulmonary toilet -Pulmonary consult for possible therapeutic bronchoscopy/pig tail placement -trend lactate -goals of care discussion with family -enoxaprin 40mg sc q24hrs for dvt ppx
[2018-04-16] MEDS: MIDAZOLAM HCL 2 MG/2 ML SINGLE DOSE VIAL IVPUSH PRN ×2 (07:55→09:55)
--- NOTE | 2018-04-16 08:38 | PN ---
Progress Note (short form) - Note Progress Note: Subjective: unable to obtain hx . early this am , a trach wa placed and pt was started on vent, with improvement of his Sat O2 . Objective: Vital Signs: Last Vital Signs Temp Pulse Resp BP Pulse Ox 101.6 F H 134 H 40 H 87/59 97 04/16/18 08:11 04/16/18 08:11 04/16/18 08:11 04/16/18 08:11 04/16/18 05:52 Laboratory Results - last 24 hr 04/16/18 04/16/18 04/16/18 01:40 02:12 02:12 WBC 1.2 L* D RBC 4.27 D Hgb 13.3 D Hct 40.9 D MCV 95.8 MCH 31.2 MCHC 32.6 RDW 16.0 H Plt Count 390 MPV 6.5 L Neutrophils % No Result Required. Neutrophils % (Manual) 67.0 Band Neutrophils % 12.0 Lymphocytes % No Result Required. Lymphocytes % (Manual) 6.0 L Monocytes % (Manual) 4 Nucleated RBC % 0 Metamyelocytes 1 Platelet Estimate Adequate Platelet Comment No clumping noted Polychromasia 1+ PT with INR 13.30 H INR 1.18 H PTT (Actin FS) 28.9 Anticoagulation Therapy No Result Required. Puncture Site Right brachial ABG pH 7.46 H ABG pCO2 at Pt Temp 36.0 ABG pO2 at Pt Temp 45.0 L* ABG HCO3 25.4 ABG O2 Sat (Measured) 79.2 L ABG O2 Content 12.7 L ABG Base Excess 2.2 H Luis Test Positive O2 Delivery Device Nrm Oxygen Flow Rate 100% Vent Mode No Result Required. Vent Rate No Result Required. Mechanical Rate No Result Required. Pressure Support Vent No Result Required. Sodium Potassium Chloride Carbon Dioxide Anion Gap BUN Creatinine Creat Clearance w eGFR Random Glucose Lactic Acid Calcium Total Bilirubin AST ALT Alkaline Phosphatase Troponin I Total Protein Albumin 04/16/18 04/16/18 04/16/18 02:12 02:12 02:15 WBC RBC Hgb Hct MCV MCH MCHC RDW Plt Count MPV Neutrophils % Neutrophils % (Manual) Band Neutrophils % Lymphocytes % Lymphocytes % (Manual) Monocytes % (Manual) Nucleated RBC % Metamyelocytes Platelet Estimate Platelet Comment Polychromasia PT with INR INR PTT (Actin FS) Anticoagulation Therapy Puncture Site ABG pH ABG pCO2 at Pt Temp ABG pO2 at Pt Temp ABG HCO3 ABG O2 Sat (Measured) ABG O2 Content ABG Base Excess Luis Test O2 Delivery Device Oxygen Flow Rate Vent Mode Vent Rate Mechanical Rate Pressure Support Vent Sodium 140 Potassium 4.2 Chloride 102 Carbon Dioxide 26 Anion Gap 12 BUN 18 D Creatinine 0.8 D Creat Clearance w eGFR > 60 Random Glucose 132 H D Lactic Acid 3.1 H* Calcium 9.3 D Total Bilirubin 0.5 D AST 72 H D ALT 43 D Alkaline Phosphatase 188 H Troponin I < 0.02 Total Protein 8.1 D Albumin 3.6 D Physical Exam: NAD, ventilated through trach, not responsive to verbal stimuli. MMM, no JVD. port in R upper chest Lungs : decreased breath sounds at L side, minimal crackles at R base Abd: soft, hypoactive BS. PEG in . Ext: no edema on LE . no erythema . Imaging: chest CT image reviewed. report pending : L pleural effusion with atelectatic lung and R base infiltrate Assessment/Plan: Unfortunate 58 y/o gentleman with h/o laryngeal cancer s/p laryngectomy, chemo and radiation, DVT s/p IVC filter , who presented with SOB and AMS and was found to have acute hypoxic resp failure and sepsis . 1- Acute hypoxic resp failure , and sepsis 2/2 b/l PNA . need to r/o empyema as has L pleural effusion. - cont vanco, zosyn and azithromycon pending ID eval - blood cx and sputum cx sent - for diagnostic thoracentesis today , to r/o empyema, if present , then needs chest tube. - cont mechanica vent - tylenol for fever - repeat lactic now - IVF 2- h/o DVT: has IVC filter. not on AC at home. denia have to confirm with family . ? reason - hold lovenox prophylaxis for thoracentersis 3- transaminitis : likely due to sepsis : - repeat . if dramatic increase , then will get US 5- DNR . Visit type - Emergency Visit Emergency Visit: Yes ED Registration Date: 04/16/18 Care time: The patient presented to the Emergency Department on the above date and was hospitalized for further evaluation of their emergent condition. - New Patient This patient is new to me today: Yes Date on this admission: 04/16/18 - Critical Care Critical Care patient: Yes Total Critical Care Time (in minutes): 35 Critical Care Statement: The care of this patient involved high complexity decision making to prevent further life threatening deterioration of the patient 's condition and/or to evaluate & treat vital organ system(s) failure or risk of failure.
[2018-04-16] MEDS ORDERED: MIDAZOLAM HCL 2 MG/2 ML SINGLE DOSE VIAL IVPUSH ONE ×2 (09:04→10:54)
[2018-04-16] MEDS: SODIUM CHLORIDE 1,000 ML IV SCH (09:12)
[2018-04-16] MEDS ORDERED: DEXTROSE 5%-WATER 100 ML IVPB ONE ×2 (09:18→17:25)
[2018-04-16] MEDS ORDERED: PIPERACILLIN/TAZOBACTAM 4.5 GM VIAL IVPB ONE ×2 (09:18→17:25)
[2018-04-16] MEDS: PIPERACILLIN/TAZOB 4.5 GM 4.5 GM in DEXTROSE 5%-WATER 100 ML IVPB SCH ×2 (09:19→17:38)
[2018-04-16] MEDS: MUPIROCIN 2% TOPICAL OINTMENT FOR DECOLONIZATION NS SCH ×2 (09:19→22:14)
[2018-04-16] MEDS ORDERED: LIDOCAINE HCL 2% (50ML VIAL) SQ ONE (09:31)
[2018-04-16] MEDS ORDERED: LIDOCAINE HCL 1%, 10 MG/ML (20ML VIAL) ONE (09:35)
[2018-04-16 09:51] LABS: ARTERIAL BLD GAS O2 SATURATION 99.7 % (90-98.9); ARTERIAL BLOOD GAS BASE EXCESS -1.5 meq/l (-2-2); ARTERIAL BLOOD GAS PCO2 37.9 mmHg (35-45); ARTERIAL BLOOD GAS pH 7.39 (7.35-7.45)
[2018-04-16 09:58] LABS: ALLENS TEST POSITIVE
[2018-04-16] MEDS ORDERED: PIPERACILLIN/TAZOB 4.5 GM 4.5 GM in DEXTROSE 5%-WATER 100 ML IVPB SCH (10:00)
--- NOTE | 2018-04-16 10:42 | PROC ---
Chest Tube Insertion Consent on Chart: Yes Risks and Benefits Explained: Yes Chest tube #1 Indication: Pleural Effusion Chest Tube Location: Left Lateral Anesthesia: 2% Lidocaine Sterile Technique: Yes Tube Sutured to Skin: No (No needle drivers or straight needle available. ) Vaseline gauze dressing: No (none available. will be placed when found) Chest Tube Collection System: Pleur-Evac Suction: Yes Drainage, Color/Appearance: Serous, Straw Amount (ml): 900
--- NOTE | 2018-04-16 10:47 | CON.ID ---
Consult - History of Present Illness History of Present Illness: 58 y.o. male with PMH of Laryngeal CA with metastasis to bone, tracheostomy, and DVT s/p IVC filter brought in with AMS, shortness of breath,fever, and rigors. Reportedly received chemotherapy approximately 2 wks ago. He is currently in the ICU and s/p tracheostomy, on MV. Febrile, tachycardic, and leukopenic with elevated lactate level. CXR revealed large pleural effusion and Rt lung consolidation. Thoracentesis was done, draining serosanguinous fluid. Currently he is sedated, intubated. Unable to obtain information from the patient. - History Source History Provided By: Medical Record Limitations to Obtaining History: Other (pt sedated, intubated) - Past Medical History Pulmonary: Yes: Previously Intubated (tracheal stoma) Heme/Onc: Yes: Cancer (laryngeal CA with mets to bone) Endocrine: Yes: Hypothyroidism - Alcohol/Substance Use Hx Alcohol Use: No - Smoking History Smoking history: Unknown if ever smoked Have you smoked in the past 12 months: No Aproximately how many cigarettes per day: 0 Home Medications - Allergies Allergies/Adverse Reactions: Allergies Allergy/AdvReac Type Severity Reaction Status Date / Time No Known Allergies Allergy Verified 04/16/18 01:31 - Home Medications Home Medications: Ambulatory Orders Calcitriol [Rocaltrol -] 0.25 mcg PEG BID #60 bot 02/14/18 Calcium 500Mg/Vit-D 200 Units [Os-You 500+D -] 2 tab PO BID #120 tab 02/14/18 FENTANYL 25mcg PATCH [DURAGESIC 25mcg PATCH -] 1 patch TD Q72H 7 Days #1 box MDD 1 02/14/18 Sodium Chloride Tablet - 1 gm GT BID #60 tablet 02/14/18 Family Disease History - Family Disease History Family History: Unable to Obtain (pt on MV/sedated) Review of Systems Unable to obtain ROS, reason: Pt sedated, on MV Physical Exam Vital Signs: Vital Signs Temperature 101.6 F H 04/16/18 08:11 Pulse Rate 134 H 04/16/18 08:11 Respiratory Rate 40 H 04/16/18 08:11 Blood Pressure 87/59 04/16/18 08:11 O2 Sat by Pulse Oximetry (%) 97 04/16/18 05:52 Constitutional: Yes: No Distress, Other (sedated) Neck: Yes: Supple, Other (trach) Cardiovascular: Yes: Tachycardia Respiratory: Yes: Mechanically Ventilated, Rales, Other (Chest tube) Gastrointestinal: Yes: Normal Bowel Sounds, Soft Extremities: Yes: WNL Integumentary: Yes: WNL Neurological: Yes: Other (sedated) Labs: CBC, BMP 04/16/18 02:12 04/16/18 02:12 Blood / respiratory cultures sent lactic acid 3.1 Imaging - Results Cat Scan: Report Reviewed (Chest : Lt pleural effusion, Rt increased markings/ consolidation) Problem List - Problems (1) Sepsis Code(s): A41.9 - SEPSIS, UNSPECIFIED ORGANISM Qualifiers: Sepsis type: sepsis due to unspecified organism Qualified Code(s): A41.9 - Sepsis, unspecified organism (2) Pneumonia Code(s): J18.9 - PNEUMONIA, UNSPECIFIED ORGANISM Qualifiers: Pneumonia type: due to unspecified organism Laterality: unspecified laterality Lung location: unspecified part of lung Qualified Code(s): J18.9 - Pneumonia, unspecified organism Assessment/Plan 58 y.o. male with PMH of laryngeal CA with metastasis to bone reportedly s/p chemotherapy 2 wks ago presenting with fever/rigors, AMS, respiratory distress Severe Sepsis Acute Respiratory failure s/p tracheostomy/ on MV PNA Pleural Effusion s/p thoracentesis Metastatic laryngeal CA Elevated lactic acid, Fever, leukopenia Hx of DVT s/p IVC filter -- continue Zosyn/Vancomycin/Azithromycin empirically -- f/u blood / respiratory/ pleural fluid cultures, f/u repeat lactic acid, monitor cbc -- monitor vitals closely -- rest of care per ICU Chart, labs, radiology results reviewed cc time: 40 min
--- NOTE | 2018-04-16 10:51 | CONSULT ---
Consult - text type - Consultation Consultation Note: Pulm/CCM Pt seen and examined in ICU CC: shortness of breath, hypoxia HPI: Briefly Mr Ward is a 58 y/o man with hx of Laryngeal Ca (2017; Stage IV mets to R hip), s/p tracheostomy--> stoma and PEG tube, and prior DVT s/p IVC filter placement who presented to the ED yesterday via EMS after his noticed he was not acting himself and becoming very agitated, and tachypneic. She relates he had more sectretions but wouldnt let her suction him. He felt warm to her but she did not take temp. Pt is nonverbal but communitcates by mouthing words and writing, pt however is toxic and appears confused. EMS was able to suction thick secretions and noted him to be hypoxic. Placed on blow by oxygen via stoma. In ED pt started on broad spectrum abx, pt was desating on supplemental O2. CT chest perfomed showed large effusion. Sent to ICU for further care. In ICU this author placed 7.0 Bivona silicone trach due to inablity to oxygenate and ventilate without PPV {a trach with a inner cannula will be need if pt needs prison vent support). Pt had high airway pressures and desaturations despite support from vent. A L 15 Fr pigtail was placed using US guidence with approx 1 L of straw colored fluid was drained, improvement in airway pressures noted. Of note: Pt's last day of chemotherapy was noted to be in January per 's calendar that was with her. Unknown agent and pt began radiation therapy afterwards Past Medical History Heme/Onc Other/laryngeal CA with mets to bone Endocrine Hypothyroidism Social History Smoking history Unknown if ever smoked Have you smoked in the past 12 No months Hx Alcohol Use No Walks with cane. Most adls via assist by . Ambulatory Orders Calcitriol [Rocaltrol -] 0.25 mcg PEG BID #60 bot 02/14/18 Calcium 500Mg/Vit-D 200 Units [Os-You 500+D -] 2 tab PO BID #120 tab 02/14/18 FENTANYL 25mcg PATCH [DURAGESIC 25mcg PATCH -] 1 patch TD Q72H 7 Days #1 box MDD 1 02/14/18 Sodium Chloride Tablet - 1 gm GT BID #60 tablet 02/14/18 Current Medications Acetaminophen (Ofirmev Injection -) 1,000 mg IVPB Q6H PRN PRN Reason: FEVER Last Admin: 04/16/18 08:10 Dose: 1,000 mg Chlorhexidine Gluconate (Hibiclens For Decolonization -) 1 applic TP HS YUKO Enoxaparin Sodium (Lovenox -) 40 mg SQ DAILY YUKO Piperacillin Sod/Tazobactam (Sod 4.5 gm/ Dextrose) 100 mls @ 200 mls/hr IVPB Q8H-IV YUKO Stop: 04/17/18 09:59 Last Admin: 04/16/18 09:19 Dose: 200 mls/hr Sodium Chloride (Normal Saline -) 1,000 mls @ 100 mls/hr IV ASDIR YUKO Last Admin: 04/16/18 09:12 Dose: 100 mls/hr Midazolam HCl (Versed -) 2 mg IVPUSH Q2H PRN PRN Reason: AGITATION Stop: 04/17/18 07:44 Last Admin: 04/16/18 07:55 Dose: 2 mg Mupirocin (Bactroban Ointment (For Decolonization) -) 1 applic NS BID YUKO Stop: 04/21/18 09:59 Last Admin: 04/16/18 09:19 Dose: Not Given Vital Signs Temp 99.9 F H 04/16/18 10:00 Pulse 115 H 04/16/18 10:00 Resp 29 H 04/16/18 10:00 BP 80/69 04/16/18 10:00 Pulse Ox 100 04/16/18 10:00 Intake & Output 04/15/18 04/15/18 04/16/18 11:59 23:59 11:59 Weight 56.699 kg Other: Height 5 ft 8 in Body Mass Index (BMI) 17.4 Weight Measurement Method Built in [facility] Weight Measurement Method Est/Stated by Patient ROS: unable due to pt condtion CT reviewed: multifocal PNA, L > R pleural effusion with atelectiss EKG: sinus, no ischemic changes CXR; improved with pigtail placed L, just above diaphram. PE: Gen: frail chronically ill appearing eld gen HEENT: large stoma, no local erythema, bitemporal wasting PULM: diminished on L, coarse rhonchi R > L ABD: PEG, + BS EXT: no edema, thin, + pulses Neuro: following commands, seems confused, non focal ASSESSMENT/PLAN: 58 y/o man with advanced ENT cancer now with multifocal pna c/b large effusion and hypoxic resp failure PULM: - trach placed (may need ENT to follow) - full vent support, wean as tolerated - Chest tube to -20 cm H20 - Cxl and workup labs for effusion sent, likely parapneumonic Neutropenic sepsis - ID following -Vanc/PipTaz/Azith for broad coverage -consider Neupogen if deteriorates -low threshold for fungal coverage if decomps -precauations SEPSIS: -IVF as needed for BP - Abx as above -central access via port avail if needs vasopressors -trend lactate Proph: -daily lovenox -PPI FEN: -start TF once stable via PEG Nasrin ACNP [id number] 35Min CCT
[2018-04-16 11:34] LABS: ALBUMIN 2.4 g/dl (3.4-5.0); BILIRUBIN,DIRECT 0.2 mg/dL (0.0-0.2); BILIRUBIN,TOTAL 0.6 mg/dL (0.2-1.0); TOT PROT 5.3 g/dl (6.4-8.2)
[2018-04-16] MEDS: VANCOMYCIN 1 GM PREMIX - 1 GM/200 ML BAG IVPB SCH (14:00)
[2018-04-16] MEDS ORDERED: CHLORHEXIDINE GLUCONATE 4% CLEANSER FOR DECOLONIZATION TP SCH (22:00)
--- NOTE | 2018-04-16 22:07 | EKG ---
Test Reason : Blood Pressure : / mmHG Vent. Rate : 132 BPM Atrial Rate : 132 BPM P-R Int : 142 ms QRS Dur : 072 ms QT Int : 272 ms P-R-T Axes : 052 010 031 degrees QTc Int : 403 ms SINUS TACHYCARDIA NONSPECIFIC T WAVE ABNORMALITY VOLTAGE CRITERIA FOR LEFT VENTRICULAR HYPERTROPHY ABNORMAL ECG WHEN COMPARED WITH ECG OF 05-FEB-2018 10:07, FUSION COMPLEXES ARE NO LONGER PRESENT PREMATURE VENTRICULAR COMPLEXES ARE NO LONGER PRESENT NONSPECIFIC T WAVE ABNORMALITY HAS REPLACED INVERTED T WAVES IN ANTERIOR LEADS Confirmed by FLAKITO WILLAMS MD ([id number]) on 04/16/2018 10:07:22 PM Referred By: Confirmed By:FLAKITO WILLAMS MD
[2018-04-16 22:51] LABS: ANION GAP 7 (8-16); BLOOD UREA NITROGEN 16 mg/dL (7-18); CHLORIDE 110 mmol/L (98-107); CO2 25 mmol/L (21-32); CREATININE 0.6 mg/dL (0.7-1.3); GLUCOSE,RANDOM 135 mg/dL (74-106); MAGNESIUM 1.8 mg/dL (1.8-2.4); PHOSPHOROUS 3.3 mg/dL (2.5-4.9); POTASSIUM 4.1 mmol/L (3.5-5.1); SODIUM 142 mmol/L (136-145)
[2018-04-16 22:53] LABS: CALCIUM 6.2 mg/dL (8.5-10.1)
[2018-04-16] MEDS ORDERED: CALCIUM GLUCONATE 10% - 1,000 MG/10 ML VIAL IVPB ONE (23:45)
[2018-04-17] MEDS: PIPERACILLIN/TAZOB 4.5 GM 4.5 GM in DEXTROSE 5%-WATER 100 ML IVPB SCH ×3 (03:00→18:53)
[2018-04-17] MEDS ORDERED: PIPERACILLIN/TAZOBACTAM 4.5 GM VIAL IVPB ONE ×3 (03:18→18:41)
[2018-04-17] MEDS ORDERED: DEXTROSE 5%-WATER 100 ML IVPB ONE ×3 (03:19→18:41)
[2018-04-17] MEDS ORDERED: PT OWN MED DRAWER 7, Y5N ONE ×3 (03:28→10:45)
[2018-04-17] MEDS: VANCOMYCIN 1 GM PREMIX - 1 GM/200 ML BAG IVPB SCH ×2 (03:30→15:25)
[2018-04-17] MEDS: MIDAZOLAM HCL 2 MG/2 ML SINGLE DOSE VIAL IVPUSH PRN (06:42)
[2018-04-17 07:03] LABS: ALBUMIN 2.1 g/dl (3.4-5.0); ANION GAP 7 (8-16); BLOOD UREA NITROGEN 16 mg/dL (7-18); CHLORIDE 109 mmol/L (98-107); CO2 25 mmol/L (21-32); GLUCOSE,RANDOM 138 mg/dL (74-106); SODIUM 141 mmol/L (136-145)
[2018-04-17 07:08] LABS: ALK PHOS 109 U/L (45-117); BILIRUBIN,TOTAL 0.5 mg/dL (0.2-1.0); CREATININE 0.6 mg/dL (0.7-1.3); SGOT/AST 49 U/L (15-37); SGPT/ALT 26 U/L (12-78)
[2018-04-17 07:26] LABS: BASO % 0.3 % (0-2.0); HEMATOCRIT 25.7 % (35.4-49); HEMOGLOBIN 8.6 GM/dL (11.7-16.9); LYMPH % 10.5 % (8-40); MCHC 33.5 g/dl (32.0-35.9); MEAN CELL VOLUME 95.4 fl (80-96); MEAN PLT VOLUME 7.4 fl (7.5-11.1); MONO % 3.5 % (3.8-10.2); NEUT % 85.7 % (42.8-82.8); PLATELET COUNT 222 K/MM3 (134-434); RDW 15.5 % (11.9-15.9); WHITE BLOOD COUNT 3.3 K/mm3 (4.0-10.0)
[2018-04-17 07:28] LABS: CALCIUM 6.6 mg/dL (8.5-10.1)
--- NOTE | 2018-04-17 08:44 | PN ---
Physical Exam: SUBJECTIVE: Patient seen and examined by me at bedside. No overnight events noted. Patient s/p chest tube placement with over 1200cc of serous drainage. Patient currently on AC vent mode saturating well. OBJECTIVE: Vital Signs Period Temp Pulse Resp BP Sys/Shrestha Pulse Ox Last 24 Hr 98.8 F-99.9 F 102-115 14-39 69-117/48-82 95-100 GENERAL: The patient is awake, alert and responding verbal commands EYES: PERRL, sclera anicteric, conjunctiva clear. No ptosis. NECK: Tracheostomy in place with no secretions LUNGS: Decreased breath sounds due to poor inspiratory effort with scattered rhonchi R>L. Left pleural catheter in place draining. HEART:Tachycardic with regular rhythm. ABDOMEN: Soft, nontender, nondistended, normoactive bowel sounds. (+) PEG tube with no erythema EXTREMITIES: 2+ pulses, warm, well-perfused, no edema. NEUROLOGICAL: Unable to assess due to patient being nonverbal and confused. Laboratory Results - last 24 hr CBC,CMP CBC, BMP 04/17/18 05:20 04/17/18 05:20 Active Medications Generic Name Dose Route Start Last Admin Trade Name Freq PRN Reason Stop Dose Admin Acetaminophen 1,000 mg 04/16/18 07:21 04/16/18 08:10 Ofirmev Injection - IVPB 1,000 mg Q6H PRN Administration FEVER Chlorhexidine Gluconate 1 applic 04/16/18 22:00 04/16/18 22:14 Hibiclens For Decolonization - TP 1 applic HS YUKO Administration Enoxaparin Sodium 40 mg 04/16/18 10:00 Lovenox - SQ DAILY YUKO Fentanyl 100 mcg 04/16/18 11:56 04/17/18 06:31 Sublimaze Injection - IVPUSH 04/17/18 11:59 100 mcg Q2H PRN Administration PAIN LEVEL 4 - 6 Piperacillin Sod/Tazobactam 100 mls @ 200 mls/hr 04/16/18 10:00 04/17/18 03: 00 Sod 4.5 gm/ Dextrose IVPB 04/23/18 09:59 200 mls/hr Q8H-IV YUKO Administration Sodium Chloride 1,000 mls @ 100 mls/hr 04/16/18 08:45 04/16/18 09:12 Normal Saline - IV 100 mls/hr ASDIR YUKO Administration Vancomycin HCl 1 gm in 200 mls @ 133.333 mls/hr 04/16/18 15:00 04/17/18 03:30 Vancomycin 1 Gm Premix - IVPB 133.333 mls/hr Q12H YUKO Administration Protocol Azithromycin 500 mg/ Dextrose 250 mls @ 250 mls/hr 04/17/18 10:00 IVPB DAILY YUKO Mupirocin 1 applic 04/16/18 10:00 04/16/18 22:14 Bactroban Ointment (For Decolonization) - NS 04/21/18 09:59 1 applic BID YUKO Administration ASSESSMENT/PLAN: Patient is a 58 year old male who presented for shortness of breath and AMS. Patient was found to have acute hypoxic respiratory failure with sepsis and admitted for further monitoring and management. Pulm: #Acute Hypoxic Respiratory Failure -Secondary to Sepsis due to bilateral pneumonia and Left pleural Effusion -Patient S/P chest tube and drained 1300cc in 24 hours -Continue IV Abx with Zosyn 4.5gm Q8H, Vancomycin 1gm Q12H, Azithromycin 50mmg daily -Pleural fluid cultures and cytology sent and pending -Blood cultures negative and sputum cultures pending -Continue mechanical vent. Fi02 50% and PEEP 5 -Tylenol PRN for fevers -IV FLuids with NS @100mls/hr Heme/Onc: #Neutropenia -Isolation precautions -Likely secondary to Sepsis -WBC's increasing. -Continue to monitor #History of Pulmonary Embolism -Currently has IVC filter -Continue Prophylaxis with Lovenox GI: #Transaminitis-Improving -Likely secondayr to Sepsis F/E/N -iv ns @100mls/hr -Electrolyte wnl -Feeds on hold for now Prophylaxis -Heparin drip for DVT -Protonix for GI Disposition -DNR -May be transferred to vent unit Case Discussed with Dr. Levi Carlton MD-[id number] Visit type - Emergency Visit Emergency Visit: Yes ED Registration Date: 04/16/18 Care time: The patient presented to the Emergency Department on the above date and was hospitalized for further evaluation of their emergent condition. - New Patient This patient is new to me today: Yes Date on this admission: 04/17/18 - Critical Care Critical Care patient: Yes Total Critical Care Time (in minutes): 45 Critical Care Statement: The care of this patient involved high complexity decision making to prevent further life threatening deterioration of the patient 's condition and/or to evaluate & treat vital organ system(s) failure or risk of failure.
[2018-04-17 09:57] LABS: BASO % 0.4 % (0-2.0); HEMATOCRIT 30.4 % (35.4-49); LYMPH % 10.9 % (8-40); MCH 31.9 pg (25.7-33.7); MEAN CELL VOLUME 96.5 fl (80-96); MEAN PLT VOLUME 7.1 fl (7.5-11.1); MONO % 2.9 % (3.8-10.2); NEUT % 85.8 % (42.8-82.8); PLATELET COUNT 243 K/MM3 (134-434); RBC 3.15 M/mm3 (4.00-5.60); RDW 15.9 % (11.9-15.9); WHITE BLOOD COUNT 4.1 K/mm3 (4.0-10.0)
[2018-04-17] MEDS: SODIUM CHLORIDE 1,000 ML IV SCH (10:48)
[2018-04-17] MEDS: MUPIROCIN 2% TOPICAL OINTMENT FOR DECOLONIZATION NS SCH (10:49)
[2018-04-17] MEDS: ENOXAPARIN NA (PORCINE) 40 MG/0.4 ML DISP.SYRIN SQ SCH (10:49)
[2018-04-17 11:36] LABS: PLEURAL FLUID APPEARANCE CLEAR; PLEURAL FLUID COLOR YELLOW; PLEURAL FLUID RBC 730 /mm3
--- NOTE | 2018-04-17 11:50 | PN ---
Teaching Attending Note Name of Resident: Shay Breaux ATTENDING PHYSICIAN STATEMENT I saw and evaluated the patient. I reviewed the resident's note and discussed the case with the resident. I agree with the resident's findings and plan as documented. SUBJECTIVE: No events over night . OBJECTIVE: NAD, ventilated through trach, awake , responsive, shakes his head no to pain or discomfort MMM, no JVD. port in R upper chest Lungs : decreased breath sounds at L side, minimal crackles at R lung anteriorly Abd: soft, hypoactive BS. PEG in . Ext: no edema on LE . no erythema . Assessment/Plan: Unfortunate 58 y/o gentleman with h/o laryngeal cancer s/p laryngectomy, chemo and radiation, DVT s/p IVC filter , who presented with SOB and AMS and was found to have acute hypoxic resp failure and sepsis . 1- Acute hypoxic resp failure ( PNA and Large L pleural effusion), and sepsis 2/ 2 b/l PNA . - Cont vanco, zosyn and azithromycon - vanco trough before the 4th dose - follow blood cx and sputum cx - Chest tube in place, 1100 cc of pleural fluid drained so far - follow pleural fluid culture - send pleural fluid studies - cont mechanical vent. still on PEEP of 8 and FiO2 of 50 % - tylenol for fever - IVF 2- h/o DVT: has IVC filter. not on AC at home. will confirm with family /heme . ? reason - for now Cont prophylactic Lovenox - Hb dropped 5 g this am , but number was not accurate on repeat CBC . No signs of bleed 3- Transaminitis : likely due to sepsis : improved 5- DNR . Critical Care Total Critical Care Time (in minutes): 35 Critical Care Statement: The care of this patient involved high complexity decision making to prevent further life threatening deterioration of the patient 's condition and/or to evaluate & treat vital organ system(s) failure or risk of failure.
--- NOTE | 2018-04-17 12:55 | PN ---
Teaching Attending Note Name of Resident: Norma Carlton ATTENDING PHYSICIAN STATEMENT I saw and evaluated the patient. I reviewed the resident's note and discussed the case with the resident. I agree with the resident's findings and plan as documented. SUBJECTIVE: Patient seen and examined in the ICU. Awake and interactive. No pressors and hemodynamics have been stable. AC mode of vent. Pleural catheter draining straw colored fluid. CXR: improving effusion / no PTX Intake & Output 04/14/18 04/15/18 04/16/18 04/17/18 23:59 23:59 23:59 23:59 Intake Total 2400 1300 Output Total 1100 Balance 1300 1300 Weight 125 lb Last Vital Signs Temp Pulse Resp BP Pulse Ox 99.2 F 97 H 18 84/72 100 04/17/18 12:00 04/17/18 12:00 04/17/18 12:21 04/17/18 12:00 04/17/18 10:25 Active Medications Enoxaparin Sodium (Lovenox -) 40 mg SQ DAILY YUKO Last Admin: 04/17/18 10:49 Dose: 40 mg Piperacillin Sod/Tazobactam (Sod 4.5 gm/ Dextrose) 100 mls @ 200 mls/hr IVPB Q8H-IV YUKO Stop: 04/23/18 09:59 Last Admin: 04/17/18 10:49 Dose: 200 mls/hr Sodium Chloride (Normal Saline -) 1,000 mls @ 100 mls/hr IV ASDIR YUKO Last Admin: 04/17/18 10:48 Dose: Not Given Vancomycin HCl (Vancomycin 1 Gm Premix -) 1 gm in 200 mls @ 133.333 mls/hr IVPB Q12H YUKO; Protocol Last Admin: 04/17/18 03:30 Dose: 133.333 mls/hr Azithromycin 500 mg/ Dextrose 250 mls @ 250 mls/hr IVPB DAILY YUKO GENERAL: Awake and alert on AC Mode of vent. HEENT: Trach intact, dry mucosa w/o exudates NECK: Tracheostomy site noted with no overt secretions LUNGS: Diminished Left breath sounds, scattered rhonchi on the right, Left pleural catheter HEART: Tachycardic with regular rhythm, normal S1 and S2 without murmur ABDOMEN: Soft, nontender, not distended, normoactive bowel sounds, no guarding, no rebound, no masses. No hepatomegaly MUSCULOSKELETAL: No CVA tenderness. UPPER EXTREMITIES: 2+ DP pulses, warm, well-perfused. No peripheral edema. NEUROLOGICAL: Cannot thoroughly assess due to agitation, confusion, nonverbal SKIN: Warm, dry, no rashes or lesions noted, No sacral decubiti appreciated Laboratory Results - last 24 hr 04/16/18 04/16/18 04/17/18 10:16 21:50 05:20 WBC 3.3 L D RBC 2.70 L D Hgb 8.6 L D Hct 25.7 L D MCV 95.4 MCH 32.0 MCHC 33.5 RDW 15.5 Plt Count 222 D MPV 7.4 L D Neutrophils % 85.7 H D Lymphocytes % 10.5 D Monocytes % 3.5 L Eosinophils % 0.0 D Basophils % 0.3 Nucleated RBC % 0 Sodium 142 Potassium 4.1 Chloride 110 H Carbon Dioxide 25 Anion Gap 7 L BUN 16 Creatinine 0.6 L D Creat Clearance w eGFR Random Glucose 135 H Calcium 6.2 L* D Phosphorus 3.3 Magnesium 1.8 Total Bilirubin AST ALT Alkaline Phosphatase Total Protein Albumin Pleural Fluid Source Left pleural Pleural Color Yellow Pleural Appearance Clear Pleural WBC 110 Pleural RBC 730 04/17/18 04/17/18 05:20 09:13 WBC 4.1 RBC 3.15 L Hgb 10.0 L D Hct 30.4 L D MCV 96.5 H MCH 31.9 MCHC 33.0 RDW 15.9 Plt Count 243 MPV 7.1 L Neutrophils % 85.8 H Lymphocytes % 10.9 Monocytes % 2.9 L Eosinophils % 0.0 Basophils % 0.4 Nucleated RBC % 0 Sodium 141 Potassium 4.0 Chloride 109 H Carbon Dioxide 25 Anion Gap 7 L BUN 16 Creatinine 0.6 L Creat Clearance w eGFR > 60 Random Glucose 138 H Calcium 6.6 L* Phosphorus Magnesium Total Bilirubin 0.5 AST 49 H ALT 26 Alkaline Phosphatase 109 Total Protein 5.0 L Albumin 2.1 L Pleural Fluid Source Pleural Color Pleural Appearance Pleural WBC Pleural RBC IMP: Acute on chronic respiratory failure Sepsis R/O aspiration PNA Neutropenia Malnutrition Laryngeal CA ABX Per ID AC mode of vent Send pleural effusion for cytology IVF VTE prophylaxis OK for enteral feeds Follow cultures DNR /DNI Vent floor Dr Sims Critical care time spent in reviewing chart, evaluating patient and formulating plan - 36 minutes.
--- NOTE | 2018-04-17 14:07 | PN ---
Progress Note, Physician History of Present Illness: comfortable on vent mask over tracheostomy calm stable hemodynamics - Current Medication List Current Medications: Active Medications Enoxaparin Sodium (Lovenox -) 40 mg SQ DAILY YUKO Last Admin: 04/17/18 10:49 Dose: 40 mg Piperacillin Sod/Tazobactam (Sod 4.5 gm/ Dextrose) 100 mls @ 200 mls/hr IVPB Q8H-IV YUKO Stop: 04/23/18 09:59 Last Admin: 04/17/18 10:49 Dose: 200 mls/hr Sodium Chloride (Normal Saline -) 1,000 mls @ 100 mls/hr IV ASDIR YUKO Last Admin: 04/17/18 10:48 Dose: Not Given Vancomycin HCl (Vancomycin 1 Gm Premix -) 1 gm in 200 mls @ 133.333 mls/hr IVPB Q12H YUKO; Protocol Last Admin: 04/17/18 03:30 Dose: 133.333 mls/hr Azithromycin 500 mg/ Dextrose 250 mls @ 250 mls/hr IVPB DAILY [facility] - Objective Vital Signs: Vital Signs Temperature 99.2 F 04/17/18 12:00 Pulse Rate 97 H 04/17/18 12:00 Respiratory Rate 18 04/17/18 12:21 Blood Pressure 84/72 04/17/18 12:00 O2 Sat by Pulse Oximetry (%) 100 04/17/18 10:25 Constitutional: Yes: No Distress, Calm, Other (awake alert on ac mode of vent) Eyes: Yes: Conjunctiva Clear HENT: Yes: Other (trachestomy site clean) Neck: Yes: Other (trach site with no secretions) Cardiovascular: Yes: Regular Rate and Rhythm Respiratory: Yes: Regular, Poor Air Entry, Rhonchi, Other (left pleural catheter ) Gastrointestinal: Yes: Normal Bowel Sounds, Soft Musculoskeletal: Yes: Other Extremities: Yes: WNL Integumentary: Yes: WNL Wound/Incision: Yes: Other Neurological: Yes: Other (calm) Psychiatric: Yes: Other Labs: CBC, BMP 04/17/18 09:13 04/17/18 05:20 INR, PTT INR 1.18 (0.82-1.09) H 04/16/18 02:12 Assessment/Plan Problem List - Problems (1) Sepsis Code(s): A41.9 - SEPSIS, UNSPECIFIED ORGANISM Qualifiers: Sepsis type: sepsis due to unspecified organism Qualified Code(s): A41.9 - Sepsis, unspecified organism (2) Pneumonia Code(s): J18.9 - PNEUMONIA, UNSPECIFIED ORGANISM Qualifiers: Pneumonia type: due to unspecified organism Laterality: unspecified laterality Lung location: unspecified part of lung Qualified Code(s): J18.9 - Pneumonia, unspecified organism Assessment/Plan 58 y.o. male with PMH of laryngeal CA with metastasis to bone reportedly s/p chemotherapy 2 wks ago presenting with fever/rigors, AMS, respiratory distress Severe Sepsis Acute Respiratory failure s/p tracheostomy/ on MV PNA Pleural Effusion s/p thoracentesis Metastatic laryngeal CA Elevated lactic acid, Fever, leukopenia Hx of DVT s/p IVC filter -- continue Zosyn/Vancomycin/Azithromycin empirically -- f/u blood / respiratory/ pleural fluid cultures, f/u repeat lactic acid, monitor cbc -- monitor vitals closely -- rest of care per ICU Chart, labs, radiology results reviewed cc time: 40 min
[2018-04-17 15:06] LABS: GLUCOSE,PLEURAL FLUID 131.96
[2018-04-17] MEDS: AZITHROMYCIN IVPB 500 MG in DEXTROSE 5%-WATER - 250 ML IVPB SCH (15:24)
[2018-04-17] MEDS: PANTOPRAZOLE SODIUM 40 MG VIAL IVPUSH SCH (18:53)
--- NOTE | 2018-04-17 20:19 | PN ---
Physical Exam: SUBJECTIVE: Yesterday afternoon pt received bolus 1L NS due to hypotension with improvement of MAP to >65 throughout night. Otherwise no events overnight. Pt today reports feeling no pain (nods no). OBJECTIVE: Vital Signs Period Temp Pulse Resp BP Sys/Shrestha Pulse Ox Last 24 Hr 99.2 F-99.7 F 76-115 14-38 74-144/54-78 95-100 GENERAL: NAD, awake, alert, thin-appearing HEENT: SEVEN, sclera anicteric, dry mucosa, temporal wasting noted NECK: Tracheostomy site noted with no overt secretions exuding from opening LUNGS: Improved aeration on L lung santiago, scattered rhonchi noted with superimposded rales. No accessory muscle use. AC mode ventilator HEART: Tachycardic with regular rhythm, normal S1 and S2 without murmur ABDOMEN: Soft, nontender, not distended, normoactive bowel sounds, no guarding, no rebound, no masses. No hepatomegaly MUSCULOSKELETAL: No CVA tenderness. UPPER EXTREMITIES: 2+ DP pulses, warm, well-perfused. No peripheral edema. SKIN: Warm, dry, no rashes or lesions noted Laboratory Results - last 24 hr 04/16/18 04/16/18 04/17/18 10:16 21:50 05:20 WBC 3.3 L D RBC 2.70 L D Hgb 8.6 L D Hct 25.7 L D MCV 95.4 MCH 32.0 MCHC 33.5 RDW 15.5 Plt Count 222 D MPV 7.4 L D Neutrophils % 85.7 H D Lymphocytes % 10.5 D Monocytes % 3.5 L Eosinophils % 0.0 D Basophils % 0.3 Nucleated RBC % 0 Sodium 142 Potassium 4.1 Chloride 110 H Carbon Dioxide 25 Anion Gap 7 L BUN 16 Creatinine 0.6 L D Creat Clearance w eGFR Random Glucose 135 H Calcium 6.2 L* D Phosphorus 3.3 Magnesium 1.8 Total Bilirubin AST ALT Alkaline Phosphatase Total Protein Albumin Pleural Fluid Source Left pleural Pleural Color Yellow Pleural Appearance Clear Pleural WBC 110 Pleural RBC 730 Pleural Neutrophils Pleural LDH 724.9 Pleural Glucose 131.96 04/17/18 04/17/18 05:20 09:13 WBC 4.1 RBC 3.15 L Hgb 10.0 L D Hct 30.4 L D MCV 96.5 H MCH 31.9 MCHC 33.0 RDW 15.9 Plt Count 243 MPV 7.1 L Neutrophils % 85.8 H Lymphocytes % 10.9 Monocytes % 2.9 L Eosinophils % 0.0 Basophils % 0.4 Nucleated RBC % 0 Sodium 141 Potassium 4.0 Chloride 109 H Carbon Dioxide 25 Anion Gap 7 L BUN 16 Creatinine 0.6 L Creat Clearance w eGFR > 60 Random Glucose 138 H Calcium 6.6 L* Phosphorus Magnesium Total Bilirubin 0.5 AST 49 H ALT 26 Alkaline Phosphatase 109 Total Protein 5.0 L Albumin 2.1 L Pleural Fluid Source Pleural Color Pleural Appearance Pleural WBC Pleural RBC Pleural Neutrophils Pleural LDH Pleural Glucose Active Medications Generic Name Dose Route Start Last Admin Trade Name Freq PRN Reason Stop Dose Admin Enoxaparin Sodium 40 mg 04/16/18 10:00 04/17/18 10:49 Lovenox - SQ 40 mg DAILY YUKO Administration Piperacillin Sod/Tazobactam 100 mls @ 200 mls/hr 04/16/18 10:00 04/17/18 18: 53 Sod 4.5 gm/ Dextrose IVPB 04/23/18 09:59 200 mls/hr Q8H-IV YUKO Administration Sodium Chloride 1,000 mls @ 100 mls/hr 04/16/18 08:45 04/17/18 10:48 Normal Saline - IV Not Given ASDIR YUKO Vancomycin HCl 1 gm in 200 mls @ 133.333 mls/hr 04/16/18 15:00 04/17/18 15:25 Vancomycin 1 Gm Premix - IVPB 133.333 mls/hr Q12H YUKO Administration Protocol Azithromycin 500 mg/ Dextrose 250 mls @ 250 mls/hr 04/17/18 10:00 04/17/18 15 :24 IVPB 250 mls/hr DAILY YUKO Administration Pantoprazole Sodium 40 mg 04/17/18 16:30 04/17/18 18:53 Protonix Iv IVPUSH 40 mg DAILY YUKO Administration ASSESSMENT/PLAN: 1) Severe sepsis 2/2 to ? aspiration PNA --Improving --Continue IVF --ID on board: --Vancomycin 1gm, ---Zosyn 4.5gm q8h --Zithromax 500mg IV to continue (Day 2) --Tylenol 650mg GT q6h for fevers --Sputum culture pending 2) Acute hypoxic respiratory dysfunction --Continue Ventilator --PEEP of 8 and FiO2 50% noted; possibly CPAP mode tomorrow again --Maintain SpO2 >90% --Aspiration precautions: HOB elevated --Fentanyl 100 PRN for pain/agitation --Chest tube in place (1100cc fluid over past 24h) --Pleural cytology ordered due to not previously done 3) Acute anemia --Hgb acutely dropped this AM --Rpt CBC due to possible lab variant error 4) H/o PE --IVC filter previously placed --No AC due to prior hematuria and blood from meatus --Continue Lovenox 40mg qDaily 5) Neutropenic --RESOLVED --2800 ANC today --Imroving white count FEN: Fluids: Continue NS@100cc/hr; bolus if needed Electrolyte abnormalities: None Nutrition: PPX: DVT - Lovenox 40mg qDaily Code Status: DNR Dispo: Cont. ICU monitoring Case discussed with Dr. Rolando Breaux, DO - IM PGY-1 Visit type - Emergency Visit Emergency Visit: No - New Patient This patient is new to me today: No - Critical Care Critical Care patient: Yes Total Critical Care Time (in minutes): 35 Critical Care Statement: The care of this patient involved high complexity decision making to prevent further life threatening deterioration of the patient 's condition and/or to evaluate & treat vital organ system(s) failure or risk of failure.
[2018-04-17] MEDS ORDERED: fentaNYL CITRATE 250 MCG/5 ML VIAL ONE (20:30)
[2018-04-17] MEDS ORDERED: FENTANYL INJECTION 500 MCG in DEXTROSE 5%-WATER - 90 ML IVPB SCH ×2 (20:30→21:15)
[2018-04-18] MEDS ORDERED: fentaNYL CITRATE 250 MCG/5 ML VIAL ONE (00:07)
[2018-04-18] MEDS ORDERED: DEXTROSE 5%-WATER 100 ML IVPB ONE ×3 (01:34→17:28)
[2018-04-18] MEDS ORDERED: PIPERACILLIN/TAZOBACTAM 4.5 GM VIAL IVPB ONE ×3 (01:34→17:28)
[2018-04-18] MEDS: PIPERACILLIN/TAZOB 4.5 GM 4.5 GM in DEXTROSE 5%-WATER 100 ML IVPB SCH ×3 (02:00→17:32)
[2018-04-18] MEDS: VANCOMYCIN 1 GM PREMIX - 1 GM/200 ML BAG IVPB SCH ×2 (03:25→17:00)
[2018-04-18 07:18] LABS: BASO % 0.8 % (0-2.0); EOS % 0.2 % (0-4.5); HEMATOCRIT 24.2 % (35.4-49); HEMOGLOBIN 8.1 GM/dL (11.7-16.9); LYMPH % 9.1 % (8-40); MCH 31.6 pg (25.7-33.7); MCHC 33.4 g/dl (32.0-35.9); MEAN CELL VOLUME 94.6 fl (80-96); MEAN PLT VOLUME 7.1 fl (7.5-11.1); MONO % 2.1 % (3.8-10.2); NEUT % 87.8 % (42.8-82.8); PLATELET COUNT 254 K/MM3 (134-434); RBC 2.56 M/mm3 (4.00-5.60); WHITE BLOOD COUNT 6.1 K/mm3 (4.0-10.0)
[2018-04-18 07:37] LABS: CHLORIDE 109 mmol/L (98-107); POTASSIUM 3.6 mmol/L (3.5-5.1); SODIUM 142 mmol/L (136-145)
[2018-04-18 07:50] LABS: INR 1.32 (0.82-1.09); PROTHROMBIN TIME (PATIENT) 14.9 SEC (9.7-13.0)
[2018-04-18 07:52] LABS: ACTIVATED PTT 28.1 SECONDS (26.9-34.4)
[2018-04-18] MEDS ORDERED: PT OWN MED DRAWER 7, Y5N ONE ×2 (08:23→17:28)
[2018-04-18 09:02] LABS: ALBUMIN 2.1 g/dl (3.4-5.0); ALK PHOS 122 U/L (45-117); BILIRUBIN,TOTAL 0.4 mg/dL (0.2-1.0); BLOOD UREA NITROGEN 17 mg/dL (7-18); CREATININE 0.7 mg/dL (0.7-1.3); GLUCOSE,RANDOM 90 mg/dL (74-106); MAGNESIUM 2.2 mg/dL (1.8-2.4); PHOSPHOROUS 2.4 mg/dL (2.5-4.9); SGOT/AST 62 U/L (15-37); SGPT/ALT 26 U/L (12-78); TOT PROT 4.9 g/dl (6.4-8.2)
[2018-04-18 09:36] LABS: CALCIUM 6.3 mg/dL (8.5-10.1)
[2018-04-18 09:46] LABS: ANION GAP 9 (8-16); CO2 24 mmol/L (21-32)
[2018-04-18] MEDS: ENOXAPARIN NA (PORCINE) 40 MG/0.4 ML DISP.SYRIN SQ SCH (10:20)
[2018-04-18] MEDS: PANTOPRAZOLE SODIUM 40 MG VIAL IVPUSH SCH (10:20)
[2018-04-18] MEDS: AZITHROMYCIN IVPB 500 MG in DEXTROSE 5%-WATER - 250 ML IVPB SCH (10:20)
[2018-04-18] MEDS ORDERED: FENTANYL PATCH WASTE TD PRN (12:29)
[2018-04-18] MEDS: SODIUM CHLORIDE 1,000 ML IV SCH ×2 (12:41→22:45)
--- NOTE | 2018-04-18 12:49 | PN ---
Progress Note (short form) - Note Progress Note: Patient seen and examined in the Telemetry unit. Awake and interactive. No pressors and hemodynamics have been stable. AC mode of vent. Pleural catheter drained 250 cc of straw colored fluid. CXR: None today Intake & Output 04/15/18 04/16/18 04/17/18 04/18/18 23:59 23:59 23:59 23:59 Intake Total 2400 2900 1300 Output Total 1100 300 275 Balance 1300 2600 1025 Weight 125 lb Last Vital Signs Temp Pulse Resp BP Pulse Ox 98.2 F 91 H 25 H 102/83 99 04/18/18 09:00 04/18/18 09:00 04/18/18 10:50 04/18/18 09:00 04/18/18 09:00 Active Medications Enoxaparin Sodium (Lovenox -) 40 mg SQ DAILY [facility] Last Admin: 04/18/18 10:20 Dose: 40 mg Fentanyl (Duragesic 50mcg Patch -) 1 patch TD Q72H YUKO Stop: 04/25/18 12:29 Piperacillin Sod/Tazobactam (Sod 4.5 gm/ Dextrose) 100 mls @ 200 mls/hr IVPB Q8H-IV YUKO Stop: 04/23/18 09:59 Last Admin: 04/18/18 10:20 Dose: 200 mls/hr Sodium Chloride (Normal Saline -) 1,000 mls @ 100 mls/hr IV ASDIR YUKO Last Admin: 04/18/18 12:41 Dose: 100 mls/hr Vancomycin HCl (Vancomycin 1 Gm Premix -) 1 gm in 200 mls @ 133.333 mls/hr IVPB Q12H YUKO; Protocol Last Admin: 04/18/18 03:25 Dose: 133.333 mls/hr Azithromycin 500 mg/ Dextrose 250 mls @ 250 mls/hr IVPB DAILY YUKO Last Admin: 04/18/18 10:20 Dose: 250 mls/hr Miscellaneous (Duragesic Patch Waste) 1 each TD PRN PRN PRN Reason: PAIN Pantoprazole Sodium (Protonix Iv) 40 mg IVPUSH DAILY [facility] Last Admin: 04/18/18 10:20 Dose: 40 mg GENERAL: Awake and alert on AC Mode of vent. HEENT: Trach intact, dry mucosa w/o exudates NECK: Tracheostomy site noted with no overt secretions LUNGS: Diminished Left breath sounds, scattered rhonchi on the right, Left pleural catheter HEART: Tachycardic with regular rhythm, normal S1 and S2 without murmur ABDOMEN: Soft, nontender, not distended, normoactive bowel sounds, no guarding, no rebound, no masses. No hepatomegaly MUSCULOSKELETAL: No CVA tenderness. UPPER EXTREMITIES: 2+ DP pulses, warm, well-perfused. No peripheral edema. NEUROLOGICAL: Cannot thoroughly assess due to agitation, confusion, nonverbal SKIN: Warm, dry, no rashes or lesions noted, No sacral decubiti appreciated Laboratory Results - last 24 hr 04/16/18 04/18/18 04/18/18 10:16 06:00 06:00 WBC 6.1 D RBC 2.56 L Hgb 8.1 L D Hct 24.2 L D MCV 94.6 MCH 31.6 MCHC 33.4 RDW 16.0 H Plt Count 254 MPV 7.1 L Absolute Neuts (auto) 5.4 Neutrophils % 87.8 H Lymphocytes % 9.1 Monocytes % 2.1 L Eosinophils % 0.2 D Basophils % 0.8 Nucleated RBC % 0 PT with INR 14.90 H INR 1.32 H PTT (Actin FS) 28.1 Sodium Potassium Chloride Carbon Dioxide Anion Gap BUN Creatinine Creat Clearance w eGFR Random Glucose Calcium Phosphorus Magnesium Total Bilirubin AST ALT Alkaline Phosphatase Total Protein Albumin Pleural Neutrophils Pleural LDH 724.9 Pleural Glucose 131.96 04/18/18 06:00 WBC RBC Hgb Hct MCV MCH MCHC RDW Plt Count MPV Absolute Neuts (auto) Neutrophils % Lymphocytes % Monocytes % Eosinophils % Basophils % Nucleated RBC % PT with INR INR PTT (Actin FS) Sodium 142 Potassium 3.6 Chloride 109 H Carbon Dioxide 24 Anion Gap 9 BUN 17 Creatinine 0.7 Creat Clearance w eGFR > 60 Random Glucose 90 D Calcium 6.3 L* Phosphorus 2.4 L D Magnesium 2.2 D Total Bilirubin 0.4 AST 62 H D ALT 26 Alkaline Phosphatase 122 H Total Protein 4.9 L Albumin 2.1 L Pleural Neutrophils Pleural LDH Pleural Glucose IMP: Acute on chronic respiratory failure Sepsis R/O aspiration PNA Neutropenia Malnutrition Laryngeal CA ABX Per ID AC mode of vent Follow pleural analysis (micro and cytology) VTE prophylaxis DNR /DNI Check CXR in the AM Hopefully will start aggressive wean trials in AM depending on his condition Dr Sims
[2018-04-18] MEDS: fentaNYL 50mcg/hr PATCH.TD72 TD SCH (12:54)
--- NOTE | 2018-04-18 13:20 | PN ---
Physical Exam: SUBJECTIVE: No acute events overnight. Pt denies any difficulty breathing or chest pain. Denies pain currently OBJECTIVE: Vital Signs Period Temp Pulse Resp BP Sys/Shrestha Pulse Ox Last 24 Hr 98.2 F-99.7 F 76-110 16-32 79-144/54-83 99-100 GENERAL: NAD, awake, alert, thin-appearing HEENT: SEVEN, sclera anicteric, dry mucosa, temporal wasting noted NECK: Tracheostomy site noted with no overt secretions exuding from opening LUNGS: Scattered rhonchi noted. No accessory muscle use. AC mode ventilator HEART: RRR, normal S1 and S2 without murmur ABDOMEN: Soft, nontender, not distended, normoactive bowel sounds, no guarding, no rebound, no masses. No hepatomegaly MUSCULOSKELETAL: No CVA tenderness. UPPER EXTREMITIES: 2+ DP pulses, warm, well-perfused. No peripheral edema. SKIN: Warm, dry, no rashes or lesions noted Laboratory Results - last 24 hr 04/16/18 04/18/18 04/18/18 10:16 06:00 06:00 WBC 6.1 D RBC 2.56 L Hgb 8.1 L D Hct 24.2 L D MCV 94.6 MCH 31.6 MCHC 33.4 RDW 16.0 H Plt Count 254 MPV 7.1 L Absolute Neuts (auto) 5.4 Neutrophils % 87.8 H Lymphocytes % 9.1 Monocytes % 2.1 L Eosinophils % 0.2 D Basophils % 0.8 Nucleated RBC % 0 PT with INR 14.90 H INR 1.32 H PTT (Actin FS) 28.1 Sodium Potassium Chloride Carbon Dioxide Anion Gap BUN Creatinine Creat Clearance w eGFR Random Glucose Calcium Phosphorus Magnesium Total Bilirubin AST ALT Alkaline Phosphatase Total Protein Albumin Pleural Neutrophils Pleural LDH 724.9 Pleural Glucose 131.96 04/18/18 06:00 WBC RBC Hgb Hct MCV MCH MCHC RDW Plt Count MPV Absolute Neuts (auto) Neutrophils % Lymphocytes % Monocytes % Eosinophils % Basophils % Nucleated RBC % PT with INR INR PTT (Actin FS) Sodium 142 Potassium 3.6 Chloride 109 H Carbon Dioxide 24 Anion Gap 9 BUN 17 Creatinine 0.7 Creat Clearance w eGFR > 60 Random Glucose 90 D Calcium 6.3 L* Phosphorus 2.4 L D Magnesium 2.2 D Total Bilirubin 0.4 AST 62 H D ALT 26 Alkaline Phosphatase 122 H Total Protein 4.9 L Albumin 2.1 L Pleural Neutrophils Pleural LDH Pleural Glucose Active Medications Generic Name Dose Route Start Last Admin Trade Name Freq PRN Reason Stop Dose Admin Enoxaparin Sodium 40 mg 04/16/18 10:00 04/18/18 10:20 Lovenox - SQ 40 mg DAILY YUKO Administration Fentanyl 1 patch 04/18/18 12:30 04/18/18 12:54 Duragesic 50mcg Patch - TD 04/25/18 12:29 1 patch Q72H YUKO Administration Piperacillin Sod/Tazobactam 100 mls @ 200 mls/hr 04/16/18 10:00 04/18/18 10: 20 Sod 4.5 gm/ Dextrose IVPB 04/23/18 09:59 200 mls/hr Q8H-IV YUKO Administration Sodium Chloride 1,000 mls @ 100 mls/hr 04/16/18 08:45 04/18/18 12:41 Normal Saline - IV 100 mls/hr ASDIR YUKO Administration Vancomycin HCl 1 gm in 200 mls @ 133.333 mls/hr 04/16/18 15:00 04/18/18 03:25 Vancomycin 1 Gm Premix - IVPB 133.333 mls/hr Q12H YUKO Administration Protocol Azithromycin 500 mg/ Dextrose 250 mls @ 250 mls/hr 04/17/18 10:00 04/18/18 10 :20 IVPB 250 mls/hr DAILY UYKO Administration Miscellaneous 1 each 04/18/18 12:29 Duragesic Patch Waste TD PRN PRN PAIN Pantoprazole Sodium 40 mg 04/17/18 16:30 04/18/18 10:20 Protonix Iv IVPUSH 40 mg DAILY YUKO Administration ASSESSMENT/PLAN: 1) Severe sepsis 2/2 to ? aspiration PNA --Improving --Continue IVF --ID on board: --Vancomycin 1gm, ---Zosyn 4.5gm q8h --Zithromax 500mg IV to continue (Day 3) --Tylenol 650mg GT q6h for fevers --Sputum culture normal sudhir 2) Acute hypoxic respiratory dysfunction --Decrease vent settings as tolerated --PEEP of 8, FiO2 50% (can likely decrease to 42% FiO2) --Maintain SpO2 >90% --Aspiration precautions: HOB elevated --Fentanyl 50mcg Patch --Oxycodone 5 GT PRN pain 6-10 --Chest tube in place draining minimally since initial drainage --Pleural cytology requisition sheet filled out and ordered 3) H/o PE --IVC filter previously placed --No AC due to prior hematuria and blood from meatus --Continue Lovenox 40mg qDaily 4) Neutropenic --RESOLVED --remove neutropenic precautions FEN: Fluids: Continue NS@100cc/hr; bolus if needed Electrolyte abnormalities: None Nutrition: Initiate tube feeds Jevity 20cc/hr with goal of 50 and 25 water bolus PPX: DVT - Lovenox 40mg qDaily Code Status: DNR Dispo: M/S monitoring Case discussed with Dr. Rolando Breaux, DO - IM PGY-1 Visit type - Emergency Visit Emergency Visit: No - New Patient This patient is new to me today: No - Critical Care Critical Care patient: No
--- NOTE | 2018-04-18 13:27 | PN ---
Progress Note, Physician History of Present Illness: still with some numbness in his arms patient still continues to spike fever - Current Medication List Current Medications: Active Medications Enoxaparin Sodium (Lovenox -) [address] [facility] Last Admin: 04/18/18 10:20 Dose: 40 mg Fentanyl (Duragesic 50mcg Patch -) 1 patch TD Q72H YUKO Stop: 04/25/18 12:29 Last Admin: 04/18/18 12:54 Dose: 1 patch Piperacillin Sod/Tazobactam (Sod 4.5 gm/ Dextrose) 100 mls @ 200 mls/hr IVPB Q8H-IV YUKO Stop: 04/23/18 09:59 Last Admin: 04/18/18 10:20 Dose: 200 mls/hr Sodium Chloride (Normal Saline -) 1,000 mls @ 100 mls/hr IV ASDIR YUKO Last Admin: 04/18/18 12:41 Dose: 100 mls/hr Vancomycin HCl (Vancomycin 1 Gm Premix -) 1 gm in 200 mls @ 133.333 mls/hr IVPB Q12H YUKO; Protocol Last Admin: 04/18/18 03:25 Dose: 133.333 mls/hr Azithromycin 500 mg/ Dextrose 250 mls @ 250 mls/hr IVPB DAILY YUKO Last Admin: 04/18/18 10:20 Dose: 250 mls/hr Miscellaneous (Duragesic Patch Waste) 1 each TD PRN PRN PRN Reason: PAIN Pantoprazole Sodium (Protonix Iv) [address] [facility] Last Admin: 04/18/18 10:20 Dose: 40 mg - Objective Vital Signs: Vital Signs Temperature 98.2 F 04/18/18 09:00 Pulse Rate 91 H 04/18/18 09:00 Respiratory Rate 25 H 04/18/18 10:50 Blood Pressure 102/83 04/18/18 09:00 O2 Sat by Pulse Oximetry (%) 99 04/18/18 09:00 Constitutional: Yes: Calm, Mild Distress HENT: Yes: Other (neck collar) Cardiovascular: Yes: Regular Rate and Rhythm Respiratory: Yes: Regular, CTA Bilaterally Gastrointestinal: Yes: Normal Bowel Sounds, Soft Musculoskeletal: Yes: WNL Extremities: Yes: Other Neurological: Yes: Alert, Oriented Psychiatric: Yes: Alert, Oriented Labs: CBC, BMP 04/18/18 06:00 04/18/18 06:00 INR, PTT INR 1.32 (0.82-1.09) H 04/18/18 06:00 Assessment/Plan Problem List - Problems (1) Sepsis Code(s): A41.9 - SEPSIS, UNSPECIFIED ORGANISM Qualifiers: Sepsis type: sepsis due to unspecified organism Qualified Code(s): A41.9 - Sepsis, unspecified organism (2) Pneumonia Code(s): J18.9 - PNEUMONIA, UNSPECIFIED ORGANISM Qualifiers: Pneumonia type: due to unspecified organism Laterality: unspecified laterality Lung location: unspecified part of lung Qualified Code(s): J18.9 - Pneumonia, unspecified organism Assessment/Plan 58 y.o. 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
[2018-04-18] MEDS ORDERED: oxyCODONE HCL 5 MG TABLET PO PRN (15:37)
[2018-04-18 15:57] VITALS: BMI 19.0
[2018-04-18] MEDS ORDERED: INSULIN (NOVOLOG) ASPART 100 UNITS/ML 10ML VIAL ONE (17:29)
[2018-04-18] MEDS ORDERED: NAPH,MB-DB/K PH,MBDB POWDER PACKET GT ONE ×2 (17:51→22:45)
--- NOTE | 2018-04-18 18:05 | PN ---
Teaching Attending Note Name of Resident: Shay Breaux ATTENDING PHYSICIAN STATEMENT I saw and evaluated the patient. I reviewed the resident's note and discussed the case with the resident. I agree with the resident's findings and plan as documented. SUBJECTIVE: No fever or chills . no pain . limited hx OBJECTIVE: NAD, ventilated through trach, awake , responsive, shakes his head no to pain or discomfort MMM, no JVD. port in R upper chest Lungs : decreased breath sounds at L side, minimal crackles at R lung anteriorly Abd: soft, NL BS. PEG in . Ext: no edema on LE . no erythema . Assessment/Plan: Unfortunate 58 y/o gentleman with h/o laryngeal cancer s/p laryngectomy, chemo and radiation, DVT s/p IVC filter , who presented with SOB and AMS and was found to have acute hypoxic resp failure and sepsis . 1- Acute hypoxic resp failure ( PNA and Large L pleural effusion), and sepsis 2/ 2 b/l PNA . - Cont vanco, zosyn and azithromycon - vanco trough at 2:30 am - fluid cx neg . follow blood cx and sputum cx - Chest tube in place, almost 2 L out - send pleural fluid cytology - cont mechanical vent. still on PEEP of 8 and FiO2 of 50 % - IVF 2- h/o PE : has IVC filter. not on AC at home du eto hematuria on AC . - for now Cont prophylactic Lovenox 3- Transaminitis : likely due to sepsis : improved 5- DNR .
[2018-04-19] MEDS ORDERED: PIPERACILLIN/TAZOBACTAM 4.5 GM VIAL IVPB ONE ×3 (01:20→15:53)
[2018-04-19] MEDS ORDERED: DEXTROSE 5%-WATER 100 ML IVPB ONE ×3 (01:20→15:53)
[2018-04-19] MEDS: SODIUM CHLORIDE 1,000 ML IV SCH ×3 (01:52→21:02)
[2018-04-19] MEDS: PIPERACILLIN/TAZOB 4.5 GM 4.5 GM in DEXTROSE 5%-WATER 100 ML IVPB SCH ×3 (01:54→17:17)
[2018-04-19] MEDS: VANCOMYCIN 1 GM PREMIX - 1 GM/200 ML BAG IVPB SCH ×2 (03:43→16:24)
[2018-04-19] MEDS: oxyCODONE HCL 5 MG TABLET GT PRN ×3 (04:07→21:36)
[2018-04-19 07:19] LABS: HEMATOCRIT 24.2 % (35.4-49); HEMOGLOBIN 8.2 GM/dL (11.7-16.9); MCH 31.8 pg (25.7-33.7); MCHC 33.8 g/dl (32.0-35.9); MEAN CELL VOLUME 94.2 fl (80-96); MEAN PLT VOLUME 7.2 fl (7.5-11.1); PLATELET COUNT 254 K/MM3 (134-434); RBC 2.57 M/mm3 (4.00-5.60); RDW 15.8 % (11.9-15.9); WHITE BLOOD COUNT 6.7 K/mm3 (4.0-10.0)
[2018-04-19 07:41] LABS: CHLORIDE 110 mmol/L (98-107); POTASSIUM 3.2 mmol/L (3.5-5.1); SODIUM 141 mmol/L (136-145)
[2018-04-19 07:55] LABS: ANION GAP 9 (8-16); BLOOD UREA NITROGEN 13 mg/dL (7-18); CO2 22 mmol/L (21-32); CREATININE 0.7 mg/dL (0.7-1.3); GLUCOSE,RANDOM 85 mg/dL (74-106); MAGNESIUM 2.3 mg/dL (1.8-2.4); PHOSPHOROUS 2.2 mg/dL (2.5-4.9)
[2018-04-19 08:01] LABS: CALCIUM 6.4 mg/dL (8.5-10.1)
[2018-04-19] MEDS ORDERED: CALCIUM GLUCONATE 10% - 1,000 MG/10 ML VIAL IVPUSH ONE (08:08)
[2018-04-19] MEDS ORDERED: NAPH,MB-DB/K PH,MBDB POWDER PACKET GT ONE ×2 (08:15→11:15)
[2018-04-19] MEDS ORDERED: POTASSIUM CHLORIDE ORAL LIQUID 20 MEQ/15 ML GT ONE ×2 (08:30→11:15)
[2018-04-19] MEDS: PANTOPRAZOLE SODIUM 40 MG VIAL IVPUSH SCH (10:54)
[2018-04-19] MEDS: ENOXAPARIN NA (PORCINE) 40 MG/0.4 ML DISP.SYRIN SQ SCH (10:56)
[2018-04-19] MEDS: AZITHROMYCIN IVPB 500 MG in DEXTROSE 5%-WATER - 250 ML IVPB SCH (10:57)
--- NOTE | 2018-04-19 11:28 | PN ---
Teaching Attending Note Name of Resident: Shay Breaux ATTENDING PHYSICIAN STATEMENT I saw and evaluated the patient. I reviewed the resident's note and discussed the case with the resident. I agree with the resident's findings and plan as documented. SUBJECTIVE: Patient is comfortable at this time. No new complains. OBJECTIVE: Vital Signs Temperature 98.5 F 04/19/18 06:00 Pulse Rate 92 H 04/19/18 06:00 Respiratory Rate 24 04/19/18 10:32 Blood Pressure 110/77 04/19/18 06:00 O2 Sat by Pulse Oximetry (%) 97 04/18/18 10:20 CBCD WBC 6.7 K/mm3 (4.0-10.0) 04/19/18 06:30 RBC 2.57 M/mm3 (4.00-5.60) L 04/19/18 06:30 Hgb 8.2 GM/dL (11.7-16.9) L 04/19/18 06:30 Hct 24.2 % (35.4-49) L 04/19/18 06:30 MCV 94.2 fl (80-96) 04/19/18 06:30 MCHC 33.8 g/dl (32.0-35.9) 04/19/18 06:30 RDW 15.8 % (11.9-15.9) 04/19/18 06:30 Plt Count 254 K/MM3 (134-434) 04/19/18 06:30 MPV 7.2 fl (7.5-11.1) L 04/19/18 06:30 CMP Sodium 141 mmol/L (136-145) 04/19/18 06:30 Potassium 3.2 mmol/L (3.5-5.1) L 04/19/18 06:30 Chloride 110 mmol/L (98-107) H 04/19/18 06:30 Carbon Dioxide 22 mmol/L (21-32) 04/19/18 06:30 Anion Gap 9 (8-16) 04/19/18 06:30 BUN 13 mg/dL (7-18) D 04/19/18 06:30 Creatinine 0.7 mg/dL (0.7-1.3) 04/19/18 06:30 Creat Clearance w eGFR > 60 (>60) 04/18/18 06:00 Random Glucose 85 mg/dL (74-106) 04/19/18 06:30 Calcium 6.4 mg/dL (8.5-10.1) L* 04/19/18 06:30 Total Bilirubin 0.4 mg/dL (0.2-1.0) 04/18/18 06:00 AST 62 U/L (15-37) H D 04/18/18 06:00 ALT 26 U/L (12-78) 04/18/18 06:00 Alkaline Phosphatase 122 U/L (45-117) H 04/18/18 06:00 Total Protein 4.9 g/dl (6.4-8.2) L 04/18/18 06:00 Albumin 2.1 g/dl (3.4-5.0) L 04/18/18 06:00 CARDIAC ENZYMES Troponin I < 0.02 ng/ml (0.00-0.05) 04/16/18 02:15 Current Medications Generic Name Dose Route Start Last Admin Trade Name Freq PRN Reason Stop Dose Admin Calcium Carbonate 1,000 mg 04/19/18 10:00 Calcium Carb Oral Suspension - GT BID YUKO Enoxaparin Sodium 40 mg 04/19/18 10:00 04/19/18 10:56 Lovenox - SQ 40 mg DAILY YUKO Administration Fentanyl 1 patch 04/18/18 12:30 04/18/18 12:54 Duragesic 50mcg Patch - TD 04/25/18 12:29 1 patch Q72H YUKO Administration Azithromycin 500 mg/ Dextrose 250 mls @ 250 mls/hr 04/19/18 10:00 04/19/18 10 :57 IVPB 250 mls/hr DAILY YUKO Administration Piperacillin Sod/Tazobactam 100 mls @ 200 mls/hr 04/19/18 02:00 04/19/18 10: 53 Sod 4.5 gm/ Dextrose IVPB 04/23/18 09:59 200 mls/hr Q8H-IV YUKO Administration Sodium Chloride 1,000 mls @ 100 mls/hr 04/18/18 19:28 04/19/18 01:52 Normal Saline - IV 100 mls/hr ASDIR YUKO Administration Vancomycin HCl 1 gm in 200 mls @ 133.333 mls/hr 04/19/18 03:00 04/19/18 03:43 Vancomycin 1 Gm Premix - IVPB 133.333 mls/hr BID@0300,1500 [facility] Administration Protocol Miscellaneous 1 each 04/18/18 12:29 Duragesic Patch Waste TD PRN PRN PAIN Oxycodone HCl 5 mg 04/18/18 15:40 04/19/18 10:55 Roxicodone - GT 5 mg Q6H PRN Administration pain 6-10 Pantoprazole Sodium 40 mg 04/17/18 16:30 04/19/18 10:54 Protonix Iv IVPUSH 40 mg DAILY YUKO Administration Home Medications Medication Instructions Recorded Calcitriol [Rocaltrol -] 0.25 mcg PEG BID #60 bot 02/14/18 Calcium 500Mg/Vit-D 200 Units 2 tab PO BID #120 tab 02/14/18 [Os-You 500+D -] FENTANYL 25mcg PATCH [DURAGESIC 1 patch TD Q72H 7 Days #1 box MDD 1 02/14/18 25mcg PATCH -] Microbiology 04/16/18 02:12 Blood - Peripheral Venous Blood Culture - Preliminary NO GROWTH OBTAINED AFTER 72 HOURS, INCUBATION TO CONTINUE FOR 2 DAYS. 04/16/18 03:16 Blood - Peripheral Venous Blood Culture - Preliminary NO GROWTH OBTAINED AFTER 72 HOURS, INCUBATION TO CONTINUE FOR 2 DAYS. 04/16/18 10:16 Pleural Fluid Body Fluid Culture - Final NO GROWTH OF AEROBIC ORGANISMS AFTER 48 HOURS INCUBATION 04/16/18 10:16 Pleural Fluid Anaerobic Culture - Final NO ANAEROBES WERE ISOLATED 04/16/18 08:30 Sputum - Endotrachea Suction/Ventilator Gram Stain - Final 04/16/18 08:30 Sputum - Endotrachea Suction/Ventilator Sputum Culture - Final NORMAL RESPIRATORY CONNOR PE: per resident's note ASSESSMENT AND PLAN: Patient is a 58 y/o male with h/o laryngeal cancer s/p laryngectomy, chemo and radiation, DVT s/p IVC filter , who presented with SOB and AMS and was found to have acute hypoxic respiratory failure and sepsis . # Acute hypoxic respiratory failure due to having bl PNA and Large L pleural effusion s/p sepsis .On vanco, zosyn and azithromycin continue, ID on the case fluid cx neg . blood cx and sputum cx : No growth so far, Chest tube in place , send pleural fluid cytology , On IVF continue, cont mechanical vent. still on PEEP of 8 and FiO2 of 50 % # h/o PE : has IVC filter. not on AC at home due to hematuria on AC . continue Px Lovenox # Transaminitis : likely due to sepsis : improved DNR .
--- NOTE | 2018-04-19 11:47 | PN ---
Physical Exam: SUBJECTIVE: Tube feeds held this morning due to some leakage around the site of PEG. Feeds stopped, no desaturation or respiratory distress noted. Pt transferred to /. No complaints made aware today. OBJECTIVE: Vital Signs Period Temp Pulse Resp BP Sys/Shrestha Pulse Ox Last 24 Hr 96.9 F-98.5 F 88-95 20-29 95-114/60-81 GENERAL: NAD, awake, alert, thin-appearing HEENT: SEVEN, sclera anicteric, dry mucosa, temporal wasting noted NECK: Tracheostomy site noted with no secretions from opening LUNGS: Improved aeration. No accessory muscle use. AC mode ventilator HEART: RRR, normal S1 and S2 without murmur ABDOMEN: Soft, nontender, not distended, normoactive bowel sounds, no guarding, no rebound, no masses. No hepatomegaly MUSCULOSKELETAL: No CVA tenderness. UPPER EXTREMITIES: 2+ DP pulses, warm, well-perfused. No peripheral edema. SKIN: Warm, dry, no rashes or lesions noted Laboratory Results - last 24 hr 04/19/18 04/19/18 06:30 06:30 WBC 6.7 RBC 2.57 L Hgb 8.2 L Hct 24.2 L MCV 94.2 MCH 31.8 MCHC 33.8 RDW 15.8 Plt Count 254 MPV 7.2 L Sodium 141 Potassium 3.2 L Chloride 110 H Carbon Dioxide 22 Anion Gap 9 BUN 13 D Creatinine 0.7 Random Glucose 85 Calcium 6.4 L* Phosphorus 2.2 L Magnesium 2.3 Active Medications Generic Name Dose Route Start Last Admin Trade Name Freq PRN Reason Stop Dose Admin Calcium Carbonate 1,000 mg 04/19/18 10:00 Calcium Carb Oral Suspension - GT BID YUKO Enoxaparin Sodium 40 mg 04/19/18 10:00 04/19/18 10:56 Lovenox - SQ 40 mg DAILY YUKO Administration Fentanyl 1 patch 04/18/18 12:30 04/18/18 12:54 Duragesic 50mcg Patch - TD 04/25/18 12:29 1 patch Q72H YUKO Administration Azithromycin 500 mg/ Dextrose 250 mls @ 250 mls/hr 04/19/18 10:00 04/19/18 10 :57 IVPB 250 mls/hr DAILY YUKO Administration Piperacillin Sod/Tazobactam 100 mls @ 200 mls/hr 04/19/18 02:00 04/19/18 10: 53 Sod 4.5 gm/ Dextrose IVPB 04/23/18 09:59 200 mls/hr Q8H-IV YUKO Administration Sodium Chloride 1,000 mls @ 100 mls/hr 04/18/18 19:28 04/19/18 01:52 Normal Saline - IV 100 mls/hr ASDIR YUKO Administration Vancomycin HCl 1 gm in 200 mls @ 133.333 mls/hr 04/19/18 03:00 04/19/18 03:43 Vancomycin 1 Gm Premix - IVPB 133.333 mls/hr BID@0300,1500 YUKO Administration Protocol Miscellaneous 1 each 04/18/18 12:29 Duragesic Patch Waste TD PRN PRN PAIN Oxycodone HCl 5 mg 04/18/18 15:40 04/19/18 10:55 Roxicodone - GT 5 mg Q6H PRN Administration pain 6-10 Pantoprazole Sodium 40 mg 04/17/18 16:30 04/19/18 10:54 Protonix Iv IVPUSH 40 mg DAILY YUKO Administration ASSESSMENT/PLAN: 1) Severe sepsis 2/2 to ? aspiration PNA --Improving --Continue IVF --ID on board: --Vancomycin 1gm, ---Zosyn 4.5gm q8h --Zithromax 500mg IV to continue (Day 4) --? Descalation at this point; will discuss with ID --Tylenol 650mg GT q6h for fevers --Sputum culture normal sudhir 2) Acute hypoxic respiratory dysfunction --Decreased to FiO2 40% due to saturation of 100% SpO2 --Will trial CPAP later today to see how pt tolerates --Maintain SpO2 >90% --Aspiration precautions: HOB elevated --Fentanyl 50mcg Patch --Oxycodone 5 GT PRN pain 6-10 --Pleural cytology requisition sheet filled out and ordered 3) H/o PE --IVC filter previously placed --No AC due to prior hematuria and blood from meatus --Continue Lovenox 40mg qDaily 4) Neutropenic --RESOLVED FEN: Fluids: Continue NS@100cc/hr; bolus if needed Electrolyte abnormalities: Hypokalemia (repleted KCl liquid), Hypocalcemia ( cCa 7.62, repleted CaCarbonate liquid), Hypophos (repleted NaK phos packet GT) Nutrition: Restart feeds 30cc rate; if leak resurfaces stop; consult GI for assessment PPX: DVT - Lovenox 40mg qDaily Code Status: DNR Dispo: M/S monitoring Case discussed with Dr. Js Breaux, DO - IM PGY-1 Visit type - Emergency Visit Emergency Visit: No - New Patient This patient is new to me today: No - Critical Care Critical Care patient: No
[2018-04-19] MEDS: CALCIUM CARBONATE SUSPENSION - 500 MG/5 ML ML GT SCH ×2 (11:52→21:26)
--- NOTE | 2018-04-19 12:21 | CON.GI ---
Consult Consult Specialty:: GI Reason for Consultation:: PEG leak - History of Present Illness History of Present Illness: Chart reviewed. Events noted. GI was called for evaluation of PEG. Bile- like material was noted to leak from PEG site last night. No complaints of abdominal pain, no records of fever, bleeding, abdominal distention, vomiting. - History Source History Provided By: Medical Record Limitations to Obtaining History: Clinical Condition - Past Medical History Pulmonary: Yes: Previously Intubated (tracheal stoma) Endocrine: Yes: Hypothyroidism - Past Surgical History Additional Surgical History: laryngectomy - Alcohol/Substance Use Hx Alcohol Use: No - Smoking History Smoking history: Unknown if ever smoked Have you smoked in the past 12 months: No Aproximately how many cigarettes per day: 0 Home Medications - Allergies Allergies/Adverse Reactions: Allergies Allergy/AdvReac Type Severity Reaction Status Date / Time No Known Allergies Allergy Verified 04/16/18 01:31 - Home Medications Home Medications: Ambulatory Orders Calcitriol [Rocaltrol -] 0.25 mcg PEG BID #60 bot 02/14/18 Calcium 500Mg/Vit-D 200 Units [Os-You 500+D -] 2 tab PO BID #120 tab 02/14/18 FENTANYL 25mcg PATCH [DURAGESIC 25mcg PATCH -] 1 patch TD Q72H 7 Days #1 box MDD 1 02/14/18 Family Disease History - Family Disease History Family History: Unremarkable Review of Systems Findings/Remarks: As per H&P and HPI Physical Exam-GI Vital Signs: Vital Signs Temperature 98.5 F 04/19/18 06:00 Pulse Rate 92 H 04/19/18 06:00 Respiratory Rate 24 04/19/18 10:32 Blood Pressure 110/77 04/19/18 06:00 O2 Sat by Pulse Oximetry (%) 97 04/18/18 10:20 Constitutional: Yes: No Distress, Calm Eyes: Yes: Conjunctiva Clear HENT: Yes: Atraumatic Neck: Yes: Supple Cardiovascular: Yes: Regular Rate and Rhythm Respiratory: Yes: Mechanically Ventilated, Other ( tracheostomy) Gastrointestinal Inspection: Yes: Distention. No: Ascites ...Palpate: No: Firm/Rigid, Guarding, Mass, Tenderness, Rebound ...Percussion: Yes: Other ( intact G every truck. No excoriation, bleeding, signs of inflammation. the G-tube itself is intact. It appears to be a replacement G-tube with 15 cc water balloon) Neurological: Yes: Alert Labs: CBC, BMP 04/19/18 06:30 04/19/18 06:30 INR, PTT INR 1.32 (0.82-1.09) H 04/18/18 06:00 Laboratory Last Values WBC 6.7 K/mm3 (4.0-10.0) 04/19/18 06:30 RBC 2.57 M/mm3 (4.00-5.60) L 04/19/18 06:30 Hgb 8.2 GM/dL (11.7-16.9) L 04/19/18 06:30 Hct 24.2 % (35.4-49) L 04/19/18 06:30 MCV 94.2 fl (80-96) 04/19/18 06:30 MCH 31.8 pg (25.7-33.7) 04/19/18 06:30 MCHC 33.8 g/dl (32.0-35.9) 04/19/18 06:30 RDW 15.8 % (11.9-15.9) 04/19/18 06:30 Plt Count 254 K/MM3 (134-434) 04/19/18 06:30 MPV 7.2 fl (7.5-11.1) L 04/19/18 06:30 Absolute Neuts (auto) 5.4 # 04/18/18 06:00 Neutrophils % 87.8 % (42.8-82.8) H 04/18/18 06:00 Neutrophils % (Manual) 67.0 % (42.8-82.8) 04/16/18 02:12 Band Neutrophils % 12.0 % 04/16/18 02:12 Lymphocytes % 9.1 % (8-40) 04/18/18 06:00 Lymphocytes % (Manual) 6.0 % (8-40) L 04/16/18 02:12 Monocytes % 2.1 % (3.8-10.2) L 04/18/18 06:00 Monocytes % (Manual) 4 % (3.8-10.2) 04/16/18 02:12 Eosinophils % 0.2 % (0-4.5) D 04/18/18 06:00 Basophils % 0.8 % (0-2.0) 04/18/18 06:00 Nucleated RBC % 0 % (0-0) 04/18/18 06:00 Metamyelocytes 1 % (0-2) 04/16/18 02:12 Platelet Estimate Adequate 04/16/18 02:12 Platelet Comment No clumping noted 04/16/18 02:12 Polychromasia 1+ 04/16/18 02:12 PT with INR 14.90 SEC (9.7-13.0) H 04/18/18 06:00 INR 1.32 (0.82-1.09) H 04/18/18 06:00 PTT (Actin FS) 28.1 SECONDS (26.9-34.4) 04/18/18 06:00 Anticoagulation Therapy No Result Required. 04/16/18 01:40 Puncture Site Left radial 04/16/18 09:50 ABG pH 7.39 (7.35-7.45) 04/16/18 09:50 ABG pCO2 at Pt Temp 37.9 mmHg (35-45) 04/16/18 09:50 ABG pO2 at Pt Temp 201.0 mmHg (80-100) H* 04/16/18 09:50 ABG HCO3 22.6 meq/L (22-26) 04/16/18 09:50 ABG O2 Sat (Measured) 99.7 % (90-98.9) H* 04/16/18 09:50 ABG O2 Content 15.1 % vol (15-22) 04/16/18 09:50 ABG Base Excess -1.5 meq/l (-2-2) 04/16/18 09:50 Luis Test Positive 04/16/18 09:50 O2 Delivery Device Nrm 04/16/18 01:40 Oxygen Flow Rate 100% 04/16/18 09:50 Vent Mode 400 04/16/18 09:50 Vent Rate 14 04/16/18 09:50 Mechanical Rate No Result Required. 04/16/18 01:40 PEEP 8.0 cmH2O 04/16/18 09:50 Pressure Support Vent No Result Required. 04/16/18 01:40 Sodium 141 mmol/L (136-145) 04/19/18 06:30 Potassium 3.2 mmol/L (3.5-5.1) L 04/19/18 06:30 Chloride 110 mmol/L (98-107) H 04/19/18 06:30 Carbon Dioxide 22 mmol/L (21-32) 04/19/18 06:30 Anion Gap 9 (8-16) 04/19/18 06:30 BUN 13 mg/dL (7-18) D 04/19/18 06:30 Creatinine 0.7 mg/dL (0.7-1.3) 04/19/18 06:30 Creat Clearance w eGFR > 60 (>60) 04/18/18 06:00 Random Glucose 85 mg/dL (74-106) 04/19/18 06:30 Lactic Acid 2.0 mmol/L (0.0-2.0) 04/16/18 10:40 Calcium 6.4 mg/dL (8.5-10.1) L* 04/19/18 06:30 Phosphorus 2.2 mg/dL (2.5-4.9) L 04/19/18 06:30 Magnesium 2.3 mg/dL (1.8-2.4) 04/19/18 06:30 Total Bilirubin 0.4 mg/dL (0.2-1.0) 04/18/18 06:00 Direct Bilirubin 0.2 mg/dL (0.0-0.2) 04/16/18 10:40 AST 62 U/L (15-37) H D 04/18/18 06:00 ALT 26 U/L (12-78) 04/18/18 06:00 Alkaline Phosphatase 122 U/L (45-117) H 04/18/18 06:00 Troponin I < 0.02 ng/ml (0.00-0.05) 04/16/18 02:15 Total Protein 4.9 g/dl (6.4-8.2) L 04/18/18 06:00 Albumin 2.1 g/dl (3.4-5.0) L 04/18/18 06:00 Pleural Fluid Source Left pleural 04/16/18 10:16 Pleural Color Yellow 04/16/18 10:16 Pleural Appearance Clear 04/16/18 10:16 Pleural WBC 110 /mm3 04/16/18 10:16 Pleural RBC 730 /mm3 04/16/18 10:16 Pleural Neutrophils % 04/16/18 10:16 Pleural LDH 724.9 04/16/18 10:16 Pleural Glucose 131.96 04/16/18 10:16 Problem List - Problems (1) Attention to gastrostomy tube Code(s): Z43.1 - ENCOUNTER FOR ATTENTION TO GASTROSTOMY (2) Encounter for attention to gastrostomy Code(s): Z43.1 - ENCOUNTER FOR ATTENTION TO GASTROSTOMY Assessment/Plan Loose, but otherwise intact and functional G-tube, Adjusted. The G-tube tract appears healthy. resume feeds, aspiration precautions.
--- NOTE | 2018-04-19 12:55 | PN ---
Progress Note, Physician History of Present Illness: pulmonary awake,no distress,on vent support ac mode - Current Medication List Current Medications: Active Medications Calcium Carbonate (Calcium Carb Oral Suspension -) 1,000 mg GT BID [facility] Last Admin: 04/19/18 11:52 Dose: 1,000 mg Enoxaparin Sodium (Lovenox -) 40 mg SQ DAILY [facility] Last Admin: 04/19/18 10:56 Dose: 40 mg Fentanyl (Duragesic 50mcg Patch -) 1 patch TD Q72H YUKO Stop: 04/25/18 12:29 Last Admin: 04/18/18 12:54 Dose: 1 patch Azithromycin 500 mg/ Dextrose 250 mls @ 250 mls/hr IVPB DAILY [facility] Last Admin: 04/19/18 10:57 Dose: 250 mls/hr Piperacillin Sod/Tazobactam (Sod 4.5 gm/ Dextrose) 100 mls @ 200 mls/hr IVPB Q8H-IV YUKO Stop: 04/23/18 09:59 Last Admin: 04/19/18 10:53 Dose: 200 mls/hr Sodium Chloride (Normal Saline -) 1,000 mls @ 100 mls/hr IV ASDIR YUKO Last Admin: 04/19/18 01:52 Dose: 100 mls/hr Vancomycin HCl (Vancomycin 1 Gm Premix -) 1 gm in 200 mls @ 133.333 mls/hr IVPB BID@0300,1500 YUKO; Protocol Last Admin: 04/19/18 03:43 Dose: 133.333 mls/hr Miscellaneous (Duragesic Patch Waste) 1 each TD PRN PRN PRN Reason: PAIN Oxycodone HCl (Roxicodone -) 5 mg GT Q6H PRN PRN Reason: pain 6-10 Last Admin: 04/19/18 10:55 Dose: 5 mg Pantoprazole Sodium (Protonix Iv) 40 mg IVPUSH DAILY [facility] Last Admin: 04/19/18 10:54 Dose: 40 mg - Objective Vital Signs: Vital Signs Temperature 98.5 F 04/19/18 06:00 Pulse Rate 92 H 04/19/18 06:00 Respiratory Rate 24 04/19/18 10:32 Blood Pressure 110/77 04/19/18 06:00 O2 Sat by Pulse Oximetry (%) 97 04/18/18 10:20 Constitutional: Yes: Well Nourished Eyes: Yes: WNL HENT: Yes: WNL Neck: Yes: Supple (trach) Cardiovascular: Yes: Regular Rate and Rhythm, S1, S2 Respiratory: Yes: Rhonchi (scattered rhonchi) Gastrointestinal: Yes: Normal Bowel Sounds, Soft, Other (gt) Extremities: Yes: WNL Edema: No Labs: CBC, BMP 04/19/18 06:30 04/19/18 06:30 INR, PTT INR 1.32 (0.82-1.09) H 04/18/18 06:00 Problem List - Problems (1) Sepsis Code(s): A41.9 - SEPSIS, UNSPECIFIED ORGANISM (2) Neutropenia Code(s): D70.9 - NEUTROPENIA, UNSPECIFIED (3) Pneumonia Code(s): J18.9 - PNEUMONIA, UNSPECIFIED ORGANISM Qualifiers: Pneumonia type: due to unspecified organism Laterality: unspecified laterality Lung location: unspecified part of lung Qualified Code(s): J18.9 - Pneumonia, unspecified organism (4) Sepsis Code(s): A41.9 - SEPSIS, UNSPECIFIED ORGANISM Qualifiers: Sepsis type: sepsis due to unspecified organism Qualified Code(s): A41.9 - Sepsis, unspecified organism (5) Respiratory failure Code(s): J96.90 - RESPIRATORY FAILURE, UNSP, UNSP W HYPOXIA OR HYPERCAPNIA (7) Acute hypoxemic respiratory failure Code(s): J96.01 - ACUTE RESPIRATORY FAILURE WITH HYPOXIA Assessment/Plan IMP: Acute on chronic respiratory failure Sepsis R/O aspiration PNA Neutropenia Malnutrition Laryngeal CA ABX Per ID AC mode of vent Follow pleural analysis (micro and cytology) VTE prophylaxis DNR /DNI wean as tolerated DR RAMIREZ
--- NOTE | 2018-04-19 15:26 | PN ---
Progress Note, Physician History of Present Illness: awake alert no distress tolerating tube feeds on vent - Current Medication List Current Medications: Active Medications Calcium Carbonate (Calcium Carb Oral Suspension -) 1,000 mg GT BID [facility] Last Admin: 04/19/18 11:52 Dose: 1,000 mg Enoxaparin Sodium (Lovenox -) 40 mg SQ DAILY [facility] Last Admin: 04/19/18 10:56 Dose: 40 mg Fentanyl (Duragesic 50mcg Patch -) 1 patch TD Q72H [facility] Stop: 04/25/18 12:29 Last Admin: 04/18/18 12:54 Dose: 1 patch Azithromycin 500 mg/ Dextrose 250 mls @ 250 mls/hr IVPB DAILY [facility] Last Admin: 04/19/18 10:57 Dose: 250 mls/hr Piperacillin Sod/Tazobactam (Sod 4.5 gm/ Dextrose) 100 mls @ 200 mls/hr IVPB Q8H-IV [facility] Stop: 04/23/18 09:59 Last Admin: 04/19/18 10:53 Dose: 200 mls/hr Sodium Chloride (Normal Saline -) 1,000 mls @ 100 mls/hr IV ASDIR [facility] Last Admin: 04/19/18 01:52 Dose: 100 mls/hr Miscellaneous (Duragesic Patch Waste) 1 each TD PRN PRN PRN Reason: PAIN Oxycodone HCl (Roxicodone -) 5 mg GT Q6H PRN PRN Reason: pain 6-10 Last Admin: 04/19/18 10:55 Dose: 5 mg Pantoprazole Sodium (Protonix Iv) 40 mg IVPUSH DAILY [facility] Last Admin: 04/19/18 10:54 Dose: 40 mg - Objective Vital Signs: Vital Signs Temperature 98.5 F 04/19/18 14:33 Pulse Rate 102 H 04/19/18 14:33 Respiratory Rate 28 H 04/19/18 14:33 Blood Pressure 96/71 04/19/18 14:33 O2 Sat by Pulse Oximetry (%) 97 04/18/18 10:20 Constitutional: Yes: No Distress, Calm HENT: Yes: Other (tracheostomy in place) Cardiovascular: Yes: Regular Rate and Rhythm, Other Gastrointestinal: Yes: Normal Bowel Sounds, Soft, Other (peg in place) Musculoskeletal: Yes: WNL Extremities: Yes: WNL Neurological: Yes: Alert, Oriented Psychiatric: Yes: Alert, Oriented Labs: CBC, BMP 04/19/18 06:30 04/19/18 06:30 INR, PTT INR 1.32 (0.82-1.09) H 04/18/18 06:00 Assessment/Plan Problem List - Problems (1) Sepsis Code(s): A41.9 - SEPSIS, UNSPECIFIED ORGANISM Qualifiers: Sepsis type: sepsis due to unspecified organism Qualified Code(s): A41.9 - Sepsis, unspecified organism (2) Pneumonia Code(s): J18.9 - PNEUMONIA, UNSPECIFIED ORGANISM Qualifiers: Pneumonia type: due to unspecified organism Laterality: unspecified laterality Lung location: unspecified part of lung Qualified Code(s): J18.9 - Pneumonia, unspecified organism Assessment/Plan 58 y.o. 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
[2018-04-19] MEDS ORDERED: PT OWN MED DRAWER 7, Y5N ONE (21:21)
[2018-04-20] MEDS ORDERED: DEXTROSE 5%-WATER 100 ML IVPB ONE ×2 (01:07→10:06)
[2018-04-20] MEDS ORDERED: PIPERACILLIN/TAZOBACTAM 4.5 GM VIAL IVPB ONE ×2 (01:07→10:06)
[2018-04-20] MEDS: PIPERACILLIN/TAZOB 4.5 GM 4.5 GM in DEXTROSE 5%-WATER 100 ML IVPB SCH ×2 (01:18→10:08)
[2018-04-20] MEDS: SODIUM CHLORIDE 1,000 ML IV SCH ×2 (03:34→19:49)
[2018-04-20 08:16] LABS: CHLORIDE 110 mmol/L (98-107); POTASSIUM 3.5 mmol/L (3.5-5.1); SODIUM 142 mmol/L (136-145)
[2018-04-20 08:33] LABS: ANION GAP 9 (8-16); BLOOD UREA NITROGEN 9 mg/dL (7-18); CO2 23 mmol/L (21-32); CREATININE 0.6 mg/dL (0.7-1.3); GLUCOSE,RANDOM 120 mg/dL (74-106); MAGNESIUM 2.4 mg/dL (1.8-2.4); PHOSPHOROUS 1.8 mg/dL (2.5-4.9)
[2018-04-20 08:48] LABS: CALCIUM 6.5 mg/dL (8.5-10.1)
[2018-04-20] MEDS: PANTOPRAZOLE SODIUM 40 MG VIAL IVPUSH SCH (10:08)
[2018-04-20] MEDS: ENOXAPARIN NA (PORCINE) 40 MG/0.4 ML DISP.SYRIN SQ SCH (10:08)
[2018-04-20] MEDS ORDERED: POTASSIUM PHOSPHATE 30 MM in DEXTROSE 5%-WATER - 500 ML IVPB ONE (11:00)
--- NOTE | 2018-04-20 11:27 | PN ---
Progress Note (short form) - Note Progress Note: PULMONARY Vented, awake. No fevers recorded. Last Vital Signs Temp Pulse Resp BP Pulse Ox 98.2 F 99 H 25 H 110/55 100 04/20/18 10:03 04/20/18 10:03 04/20/18 10:03 04/20/18 10:03 04/19/18 21:00 Gen: vented, awake Heart: RRR Lung: decreased breath sounds at the bases Abd: soft, nontender Ext: no edema Chest tube: serous, slightly cloudy drainage, no air leak CBC, BMP 04/19/18 06:30 04/20/18 07:10 Active Medications Enoxaparin Sodium (Lovenox -) 40 mg SQ DAILY [facility] Last Admin: 04/20/18 10:08 Dose: 40 mg Fentanyl (Duragesic 50mcg Patch -) 1 patch TD Q72H [facility] Stop: 04/25/18 12:29 Last Admin: 04/18/18 12:54 Dose: 1 patch Azithromycin 500 mg/ Dextrose 250 mls @ 250 mls/hr IVPB DAILY [facility] Last Admin: 04/19/18 10:57 Dose: 250 mls/hr Piperacillin Sod/Tazobactam (Sod 4.5 gm/ Dextrose) 100 mls @ 200 mls/hr IVPB Q8H-IV [facility] Stop: 04/23/18 09:59 Last Admin: 04/20/18 10:08 Dose: 200 mls/hr Sodium Chloride (Normal Saline -) 1,000 mls @ 100 mls/hr IV ASDIR [facility] Last Admin: 04/20/18 03:34 Dose: 100 mls/hr Potassium Phosphate 30 mm/ (Dextrose) 510 mls @ 63.75 mls/hr IVPB ONCE ONE Stop: 04/20/18 18:59 Miscellaneous (Duragesic Patch Waste) 1 each TD PRN PRN PRN Reason: PAIN Oxycodone HCl (Roxicodone -) 5 mg GT Q6H PRN PRN Reason: pain 6-10 Last Admin: 04/19/18 21:36 Dose: 5 mg Pantoprazole Sodium (Protonix Iv) 40 mg IVPUSH DAILY [facility] Last Admin: 04/20/18 10:08 Dose: 40 mg A/P Acute on Chronic Respiratory failure Pneumonia Sepsis Laryngeal CA - continue antibiotics - f/u pleural fluid cultures and cytology - monitor chest tube drainage - repeat CXR - enteral feeds - continue volume assist control - spontaneous breathing trials as tolerated - DVT prophylaxis - will likely need vent facility placement
--- NOTE | 2018-04-20 11:56 | PN ---
Progress Note, Physician History of Present Illness: The G-tube was dislodged overnight. 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 Gastrografin study pending. Clinically the same. - Current Medication List Current Medications: Active Medications Enoxaparin Sodium (Lovenox -) 40 mg SQ DAILY [facility] Last Admin: 04/20/18 10:08 Dose: 40 mg Fentanyl (Duragesic 50mcg Patch -) 1 patch TD Q72H [facility] Stop: 04/25/18 12:29 Last Admin: 04/18/18 12:54 Dose: 1 patch Azithromycin 500 mg/ Dextrose 250 mls @ 250 mls/hr IVPB DAILY [facility] Last Admin: 04/19/18 10:57 Dose: 250 mls/hr Piperacillin Sod/Tazobactam (Sod 4.5 gm/ Dextrose) 100 mls @ 200 mls/hr IVPB Q8H-IV [facility] Stop: 04/23/18 09:59 Last Admin: 04/20/18 10:08 Dose: 200 mls/hr Sodium Chloride (Normal Saline -) 1,000 mls @ 100 mls/hr IV ASDIR [facility] Last Admin: 04/20/18 03:34 Dose: 100 mls/hr Potassium Phosphate 30 mm/ (Dextrose) 510 mls @ 63.75 mls/hr IVPB ONCE ONE Stop: 04/20/18 18:59 Miscellaneous (Duragesic Patch Waste) 1 each TD PRN PRN PRN Reason: PAIN Oxycodone HCl (Roxicodone -) 5 mg GT Q6H PRN PRN Reason: pain 6-10 Last Admin: 04/19/18 21:36 Dose: 5 mg Pantoprazole Sodium (Protonix Iv) 40 mg IVPUSH DAILY [facility] Last Admin: 04/20/18 10:08 Dose: 40 mg - Objective Vital Signs: Vital Signs Temperature 98.2 F 04/20/18 10:03 Pulse Rate 99 H 04/20/18 10:03 Respiratory Rate 25 H 04/20/18 10:03 Blood Pressure 110/55 04/20/18 10:03 O2 Sat by Pulse Oximetry (%) 100 04/19/18 21:00 Constitutional: Yes: No Distress, Calm Gastrointestinal: No: Ascites, Distention, Tenderness Labs: CBC, BMP 04/19/18 06:30 04/20/18 07:10 INR, PTT INR 1.32 (0.82-1.09) H 04/18/18 06:00 Laboratory Last Values WBC 6.7 K/mm3 (4.0-10.0) 04/19/18 06:30 RBC 2.57 M/mm3 (4.00-5.60) L 04/19/18 06:30 Hgb 8.2 GM/dL (11.7-16.9) L 04/19/18 06:30 Hct 24.2 % (35.4-49) L 04/19/18 06:30 MCV 94.2 fl (80-96) 04/19/18 06:30 MCH 31.8 pg (25.7-33.7) 04/19/18 06:30 MCHC 33.8 g/dl (32.0-35.9) 04/19/18 06:30 RDW 15.8 % (11.9-15.9) 04/19/18 06:30 Plt Count 254 K/MM3 (134-434) 04/19/18 06:30 MPV 7.2 fl (7.5-11.1) L 04/19/18 06:30 Absolute Neuts (auto) 5.4 # 04/18/18 06:00 Neutrophils % 87.8 % (42.8-82.8) H 04/18/18 06:00 Neutrophils % (Manual) 67.0 % (42.8-82.8) 04/16/18 02:12 Band Neutrophils % 12.0 % 04/16/18 02:12 Lymphocytes % 9.1 % (8-40) 04/18/18 06:00 Lymphocytes % (Manual) 6.0 % (8-40) L 04/16/18 02:12 Monocytes % 2.1 % (3.8-10.2) L 04/18/18 06:00 Monocytes % (Manual) 4 % (3.8-10.2) 04/16/18 02:12 Eosinophils % 0.2 % (0-4.5) D 04/18/18 06:00 Basophils % 0.8 % (0-2.0) 04/18/18 06:00 Nucleated RBC % 0 % (0-0) 04/18/18 06:00 Metamyelocytes 1 % (0-2) 04/16/18 02:12 Platelet Estimate Adequate 04/16/18 02:12 Platelet Comment No clumping noted 04/16/18 02:12 Polychromasia 1+ 04/16/18 02:12 PT with INR 14.90 SEC (9.7-13.0) H 04/18/18 06:00 INR 1.32 (0.82-1.09) H 04/18/18 06:00 PTT (Actin FS) 28.1 SECONDS (26.9-34.4) 04/18/18 06:00 Anticoagulation Therapy No Result Required. 04/16/18 01:40 Puncture Site Left radial 04/16/18 09:50 ABG pH 7.39 (7.35-7.45) 04/16/18 09:50 ABG pCO2 at Pt Temp 37.9 mmHg (35-45) 04/16/18 09:50 ABG pO2 at Pt Temp 201.0 mmHg (80-100) H* 04/16/18 09:50 ABG HCO3 22.6 meq/L (22-26) 04/16/18 09:50 ABG O2 Sat (Measured) 99.7 % (90-98.9) H* 04/16/18 09:50 ABG O2 Content 15.1 % vol (15-22) 04/16/18 09:50 ABG Base Excess -1.5 meq/l (-2-2) 04/16/18 09:50 Luis Test Positive 04/16/18 09:50 O2 Delivery Device Nrm 04/16/18 01:40 Oxygen Flow Rate 100% 04/16/18 09:50 Vent Mode 400 04/16/18 09:50 Vent Rate 14 04/16/18 09:50 Mechanical Rate No Result Required. 04/16/18 01:40 PEEP 8.0 cmH2O 04/16/18 09:50 Pressure Support Vent No Result Required. 04/16/18 01:40 Sodium 142 mmol/L (136-145) 04/20/18 07:10 Potassium 3.5 mmol/L (3.5-5.1) 04/20/18 07:10 Chloride 110 mmol/L (98-107) H 04/20/18 07:10 Carbon Dioxide 23 mmol/L (21-32) 04/20/18 07:10 Anion Gap 9 (8-16) 04/20/18 07:10 BUN 9 mg/dL (7-18) D 04/20/18 07:10 Creatinine 0.6 mg/dL (0.7-1.3) L 04/20/18 07:10 Creat Clearance w eGFR > 60 (>60) 04/18/18 06:00 Random Glucose 120 mg/dL (74-106) H D 04/20/18 07:10 Lactic Acid 2.0 mmol/L (0.0-2.0) 04/16/18 10:40 Calcium 6.5 mg/dL (8.5-10.1) L* 04/20/18 07:10 Phosphorus 1.8 mg/dL (2.5-4.9) L 04/20/18 07:10 Magnesium 2.4 mg/dL (1.8-2.4) 04/20/18 07:10 Total Bilirubin 0.4 mg/dL (0.2-1.0) 04/18/18 06:00 Direct Bilirubin 0.2 mg/dL (0.0-0.2) 04/16/18 10:40 AST 62 U/L (15-37) H D 04/18/18 06:00 ALT 26 U/L (12-78) 04/18/18 06:00 Alkaline Phosphatase 122 U/L (45-117) H 04/18/18 06:00 Troponin I < 0.02 ng/ml (0.00-0.05) 04/16/18 02:15 Total Protein 4.9 g/dl (6.4-8.2) L 04/18/18 06:00 Albumin 2.1 g/dl (3.4-5.0) L 04/18/18 06:00 Pleural Fluid Source Left pleural 04/16/18 10:16 Pleural Color Yellow 04/16/18 10:16 Pleural Appearance Clear 04/16/18 10:16 Pleural WBC 110 /mm3 04/16/18 10:16 Pleural RBC 730 /mm3 04/16/18 10:16 Pleural Neutrophils % 04/16/18 10:16 Pleural LDH 724.9 04/16/18 10:16 Pleural Glucose 131.96 04/16/18 10:16 Problem List - Problems (1) Attention to gastrostomy tube Code(s): Z43.1 - ENCOUNTER FOR ATTENTION TO GASTROSTOMY (2) Encounter for attention to gastrostomy Code(s): Z43.1 - ENCOUNTER FOR ATTENTION TO GASTROSTOMY Assessment/Plan Do not use G-tube until confirmed to be in the stomach by Gastrografin study.
[2018-04-20] MEDS: AZITHROMYCIN IVPB 500 MG in DEXTROSE 5%-WATER - 250 ML IVPB SCH (12:14)
--- NOTE | 2018-04-20 16:28 | PN ---
Progress Note, Physician History of Present Illness: vented stable chest tube still with draiange g tube was dislodged replace xray done await for report - Current Medication List Current Medications: Active Medications Enoxaparin Sodium (Lovenox -) 40 mg SQ DAILY [facility] Last Admin: 04/20/18 10:08 Dose: 40 mg Fentanyl (Duragesic 50mcg Patch -) 1 patch TD Q72H [facility] Stop: 04/25/18 12:29 Last Admin: 04/18/18 12:54 Dose: 1 patch Azithromycin 500 mg/ Dextrose 250 mls @ 250 mls/hr IVPB DAILY [facility] Last Admin: 04/20/18 12:14 Dose: 250 mls/hr Piperacillin Sod/Tazobactam (Sod 4.5 gm/ Dextrose) 100 mls @ 200 mls/hr IVPB Q8H-IV [facility]KO Stop: 04/23/18 09:59 Last Admin: 04/20/18 10:08 Dose: 200 mls/hr Sodium Chloride (Normal Saline -) 1,000 mls @ 100 mls/hr IV ASDIR [facility] Last Admin: 04/20/18 03:34 Dose: 100 mls/hr Potassium Phosphate 30 mm/ (Dextrose) 510 mls @ 63.75 mls/hr IVPB ONCE ONE Stop: 04/20/18 18:59 Last Admin: 04/20/18 14:01 Dose: 63.75 mls/hr Miscellaneous (Duragesic Patch Waste) 1 each TD PRN PRN PRN Reason: PAIN Oxycodone HCl (Roxicodone -) 5 mg GT Q6H PRN PRN Reason: pain 6-10 Last Admin: 04/19/18 21:36 Dose: 5 mg Pantoprazole Sodium (Protonix Iv) 40 mg IVPUSH DAILY [facility] Last Admin: 04/20/18 10:08 Dose: 40 mg - Objective Vital Signs: Vital Signs Temperature 97.4 F L 04/20/18 14:09 Pulse Rate 94 H 04/20/18 14:09 Respiratory Rate 26 H 04/20/18 14:55 Blood Pressure 117/76 04/20/18 14:09 O2 Sat by Pulse Oximetry (%) 99 04/20/18 10:10 Constitutional: Yes: No Distress, Calm HENT: Yes: Other (trachestomy) Cardiovascular: Yes: Regular Rate and Rhythm Respiratory: Yes: Mechanically Ventilated Gastrointestinal: Yes: Normal Bowel Sounds, Soft, Other Neurological: Yes: Alert Psychiatric: Yes: Alert Labs: CBC, BMP 04/19/18 06:30 04/20/18 07:10 INR, PTT INR 1.32 (0.82-1.09) H 04/18/18 06:00 Assessment/Plan Problem List - Problems (1) Sepsis Code(s): A41.9 - SEPSIS, UNSPECIFIED ORGANISM Qualifiers: Sepsis type: sepsis due to unspecified organism Qualified Code(s): A41.9 - Sepsis, unspecified organism (2) Pneumonia Code(s): J18.9 - PNEUMONIA, UNSPECIFIED ORGANISM Qualifiers: Pneumonia type: due to unspecified organism Laterality: unspecified laterality Lung location: unspecified part of lung Qualified Code(s): J18.9 - Pneumonia, unspecified organism Assessment/Plan 58 y.o. 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
--- NOTE | 2018-04-20 19:29 | PN ---
Teaching Attending Note Name of Resident: Shay Breaux ATTENDING PHYSICIAN STATEMENT I saw and evaluated the patient. I reviewed the resident's note and discussed the case with the resident. I agree with the resident's findings and plan as documented. SUBJECTIVE: Patient is feeling better. on the vent. continues. OBJECTIVE: Vital Signs Temperature 97.9 F 04/20/18 17:38 Pulse Rate 85 04/20/18 17:38 Respiratory Rate 25 H 04/20/18 18:42 Blood Pressure 123/76 04/20/18 17:38 O2 Sat by Pulse Oximetry (%) 99 04/20/18 10:10 CBCD WBC 6.7 K/mm3 (4.0-10.0) 04/19/18 06:30 RBC 2.57 M/mm3 (4.00-5.60) L 04/19/18 06:30 Hgb 8.2 GM/dL (11.7-16.9) L 04/19/18 06:30 Hct 24.2 % (35.4-49) L 04/19/18 06:30 MCV 94.2 fl (80-96) 04/19/18 06:30 MCHC 33.8 g/dl (32.0-35.9) 04/19/18 06:30 RDW 15.8 % (11.9-15.9) 04/19/18 06:30 Plt Count 254 K/MM3 (134-434) 04/19/18 06:30 MPV 7.2 fl (7.5-11.1) L 04/19/18 06:30 CMP Sodium 142 mmol/L (136-145) 04/20/18 07:10 Potassium 3.5 mmol/L (3.5-5.1) 04/20/18 07:10 Chloride 110 mmol/L (98-107) H 04/20/18 07:10 Carbon Dioxide 23 mmol/L (21-32) 04/20/18 07:10 Anion Gap 9 (8-16) 04/20/18 07:10 BUN 9 mg/dL (7-18) D 04/20/18 07:10 Creatinine 0.6 mg/dL (0.7-1.3) L 04/20/18 07:10 Creat Clearance w eGFR > 60 (>60) 04/18/18 06:00 Random Glucose 120 mg/dL (74-106) H D 04/20/18 07:10 Calcium 6.5 mg/dL (8.5-10.1) L* 04/20/18 07:10 Total Bilirubin 0.4 mg/dL (0.2-1.0) 04/18/18 06:00 AST 62 U/L (15-37) H D 04/18/18 06:00 ALT 26 U/L (12-78) 04/18/18 06:00 Alkaline Phosphatase 122 U/L (45-117) H 04/18/18 06:00 Total Protein 4.9 g/dl (6.4-8.2) L 04/18/18 06:00 Albumin 2.1 g/dl (3.4-5.0) L 04/18/18 06:00 CARDIAC ENZYMES Troponin I < 0.02 ng/ml (0.00-0.05) 04/16/18 02:15 Current Medications Generic Name Dose Route Start Last Admin Trade Name Freq PRN Reason Stop Dose Admin Enoxaparin Sodium 40 mg 04/19/18 10:00 04/20/18 10:08 Lovenox - SQ 40 mg DAILY [facility] Administration Fentanyl 1 patch 04/18/18 12:30 04/18/18 12:54 Duragesic 50mcg Patch - TD 04/25/18 12:29 1 patch Q72H [facility]UKO Administration Sodium Chloride 1,000 mls @ 100 mls/hr 04/18/18 19:28 04/20/18 03:34 Normal Saline - IV 100 mls/hr ASDIR [facility]KO Administration Miscellaneous 1 each 04/18/18 12:29 Duragesic Patch Waste TD PRN PRN PAIN Oxycodone HCl 5 mg 04/18/18 15:40 04/19/18 21:36 Roxicodone - GT 5 mg Q6H PRN Administration pain 6-10 Pantoprazole Sodium 40 mg 04/17/18 16:30 04/20/18 10:08 Protonix Iv IVPUSH 40 mg DAILY [facility] Administration Home Medications Medication Instructions Recorded Calcitriol [Rocaltrol -] 0.25 mcg PEG BID #60 bot 02/14/18 Calcium 500Mg/Vit-D 200 Units 2 tab PO BID #120 tab 02/14/18 [Os-You 500+D -] FENTANYL 25mcg PATCH [DURAGESIC 1 patch TD Q72H 7 Days #1 box MDD 1 02/14/18 25mcg PATCH -] PE: per resident's note ASSESSMENT AND PLAN: Patient is a 58 y/o male with h/o laryngeal cancer s/p laryngectomy, chemo and radiation, DVT s/p IVC filter , who presented with SOB and AMS and was found to have acute hypoxic respiratory failure and sepsis . # Acute hypoxic respiratory failure due to having bl PNA and Large L pleural effusion s/p sepsis .On vanco, zosyn and azithromycin continue, ID on the case fluid cx neg , Pending cytology prior to discharge to LTAC , Chest tube in place, send pleural fluid cytology , On IVF continue, cont mechanical vent. further management per Pulmonary. # h/o PE : has IVC filter. not on AC at home due to hematuria on AC . continue Px Lovenox # Transaminitis : likely due to sepsis : improved f/u pleural fluid cultures and cytology before arranging the patient to LTAC DNR .
[2018-04-20] MEDS ORDERED: ACETAMINOPHEN 1000 MG/100 ML VIAL (NON FORMULARY) IVPB ONE (20:53)
[2018-04-21] MEDS: SODIUM CHLORIDE 1,000 ML IV SCH ×2 (00:37→11:18)
[2018-04-21 07:23] LABS: HEMATOCRIT 29.1 % (35.4-49); HEMOGLOBIN 9.8 GM/dL (11.7-16.9); MCH 31.3 pg (25.7-33.7); MCHC 33.6 g/dl (32.0-35.9); MEAN CELL VOLUME 93.1 fl (80-96); MEAN PLT VOLUME 7.4 fl (7.5-11.1); PLATELET COUNT 277 K/MM3 (134-434); RBC 3.13 M/mm3 (4.00-5.60); WHITE BLOOD COUNT 6.1 K/mm3 (4.0-10.0)
[2018-04-21 08:23] LABS: ANION GAP 8 (8-16); BILIRUBIN,TOTAL 0.3 mg/dL (0.2-1.0); BLOOD UREA NITROGEN 6 mg/dL (7-18); CHLORIDE 111 mmol/L (98-107); CO2 22 mmol/L (21-32); CREATININE 0.4 mg/dL (0.7-1.3); GLUCOSE,RANDOM 86 mg/dL (74-106); MAGNESIUM 2.2 mg/dL (1.8-2.4); PHOSPHOROUS 2.5 mg/dL (2.5-4.9); POTASSIUM 3.5 mmol/L (3.5-5.1); SGOT/AST 89 U/L (15-37); SGPT/ALT 30 U/L (12-78); SODIUM 141 mmol/L (136-145); TOT PROT 5.1 g/dl (6.4-8.2)
[2018-04-21 08:24] LABS: ALK PHOS 235 U/L (45-117)
[2018-04-21 08:31] LABS: CALCIUM 5.9 mg/dL (8.5-10.1)
--- NOTE | 2018-04-21 10:58 | PN ---
Progress Note (short form) - Note Progress Note: AXR/GT position noted. Problem List - Problems (1) Attention to gastrostomy tube Code(s): Z43.1 - ENCOUNTER FOR ATTENTION TO GASTROSTOMY (2) Encounter for attention to gastrostomy Code(s): Z43.1 - ENCOUNTER FOR ATTENTION TO GASTROSTOMY
--- NOTE | 2018-04-21 11:08 | PN ---
Addendum entered and electronically signed by Shay Breaux, RESIDENT 04/21/18 11:35: ADDENDUM 1: HypoCalcemia --> cCa 7.5. PTH ordered as well. Original Note: <Shay Breaux - Last Filed: 04/21/18 11:15> Physical Exam: SUBJECTIVE: No events overnight. No new complaints. OBJECTIVE: Vital Signs Period Temp Pulse Resp BP Sys/Shrestha Pulse Ox Last 24 Hr 97.4 F-98.3 F 83-97 18-30 117-128/76-92 100-100 GENERAL: NAD, awake, alert, thin-appearing HEENT: SEVEN, sclera anicteric, dry mucosa, temporal wasting noted NECK: Tracheostomy site C/D/I, suctions pt with internal suction device with minimal white sputum LUNGS: Improved aeration. No accessory muscle use. AC mode ventilator HEART: RRR, normal S1 and S2 without murmur ABDOMEN: Soft, nontender, not distended, normoactive bowel sounds, no guarding, no rebound, no masses. No hepatomegaly MUSCULOSKELETAL: No CVA tenderness. UPPER EXTREMITIES: 2+ DP pulses, warm, well-perfused. No peripheral edema. SKIN: Warm, dry, no rashes or lesions noted Laboratory Results - last 24 hr 04/21/18 04/21/18 07:00 07:00 WBC 6.1 RBC 3.13 L D Hgb 9.8 L D Hct 29.1 L D MCV 93.1 MCH 31.3 MCHC 33.6 RDW 16.0 H Plt Count 277 MPV 7.4 L Sodium 141 Potassium 3.5 Chloride 111 H Carbon Dioxide 22 Anion Gap 8 BUN 6 L D Creatinine 0.4 L D Creat Clearance w eGFR > 60 Random Glucose 86 D Calcium 5.9 L* Phosphorus 2.5 D Magnesium 2.2 Total Bilirubin 0.3 D AST 89 H D ALT 30 Alkaline Phosphatase 235 H D Total Protein 5.1 L Albumin 2.0 L Active Medications Generic Name Dose Route Start Last Admin Trade Name Freq PRN Reason Stop Dose Admin Amino Acids 30 ml 04/21/18 17:30 Prosource No Carb Liquid Pkt PO BID@0800,1730 [facility] Calcium Carbonate 500 mg 04/21/18 10:00 Calcium Carb Oral Suspension - PO 04/22/18 22:01 BID [facility]KO Enoxaparin Sodium 40 mg 04/19/18 10:00 04/20/18 10:08 Lovenox - SQ 40 mg DAILY [facility] Administration Fentanyl 1 patch 04/18/18 12:30 04/18/18 12:54 Duragesic 50mcg Patch - TD 04/25/18 12:29 1 patch Q72H [facility]UKO Administration Sodium Chloride 1,000 mls @ 100 mls/hr 04/18/18 19:28 04/21/18 00:37 Normal Saline - IV 100 mls/hr ASDIR [facility] Administration Miscellaneous 1 each 04/18/18 12:29 Duragesic Patch Waste TD PRN PRN PAIN Oxycodone HCl 5 mg 04/18/18 15:40 04/19/18 21:36 Roxicodone - GT 5 mg Q6H PRN Administration pain 6-10 Pantoprazole Sodium 40 mg 04/17/18 16:30 04/20/18 10:08 Protonix Iv IVPUSH 40 mg DAILY [facility] Administration ASSESSMENT/PLAN: 1) Severe sepsis 2/2 to ? aspiration PNA --Resolving --Discontinue IVF due to feed restarts --ID on board: --Completed 5 days of IV ABX --Observing off antibiotics right now --Tylenol 650mg GT q6h for fevers --Sputum culture normal sudhir 2) Acute hypoxic respiratory dysfunction --CPAP challenges to continue; yesterday pt lasted 20-30minutes with tachypnea being reason to switch back to AC mode --AC mode of vent at night --Maintain SpO2 >90% --Aspiration precautions: HOB elevated --Fentanyl 50mcg Patch --Oxycodone 5 GT PRN pain 6-10 --Pleural cytology to be sent again --Most likely malignant effusion which may require PleurX catheter 3) G-tube dislodgement --Yesterday AXR w/ gastrograffin showing correct position of G-Tube --Restart feeds 1.5 Jevity @ 30cc/hr with goal of 50cc/hr (increase +10cc/hr q6h) with free water flush 35 --Can restart PO medications 4) H/o PE --IVC filter previously placed --No AC due to prior hematuria and blood from meatus --Continue Lovenox 40mg qDaily 5) Neutropenia --RESOLVED FEN: Fluids: Continue NS@100cc/hr; bolus if needed Electrolyte abnormalities: Hypocalcemia (cCa 7.5, repleted CaCarbonate 500mg BID liquid) Nutrition: Continue feeds as above, add Prosources 30mg BID PPX: DVT - Lovenox 40mg qDaily Code Status: DNR Dispo: M/S monitoring; continue CPAP trials; pt's insurance doesn't cover Pulm SNF (discuss with for other options) Case discussed with Dr. Js Breaux, DO - IM PGY-1 Visit type - Emergency Visit Emergency Visit: No - New Patient This patient is new to me today: No - Critical Care Critical Care patient: No <Rasta Weinstein - Last Filed: 04/21/18 16:53> Physical Exam: Agree with the above plan.
[2018-04-21] MEDS: PANTOPRAZOLE SODIUM 40 MG VIAL IVPUSH SCH (11:19)
[2018-04-21] MEDS: ENOXAPARIN NA (PORCINE) 40 MG/0.4 ML DISP.SYRIN SQ SCH (11:21)
[2018-04-21] MEDS: CALCIUM CARBONATE SUSPENSION - 500 MG/5 ML ML PO SCH ×2 (11:23→21:25)
--- NOTE | 2018-04-21 12:40 | PN ---
Progress Note (short form) - Note Progress Note: PULMONARY VSS/AFEBRILE Vented, awake/trach 14/400/40/8 A/C Heart: RRR Lung: decreased breath sounds at the bases Abd: soft, nontender Ext: no edema Chest tube: serous, slightly cloudy drainage, no air leak labs/meds/notes/images/micro reviewed A/P Acute on Chronic Respiratory failure Pneumonia/pleural effusion Sepsis Laryngeal CA - antibiotics stopped as per ID - f/u pleural fluid cultures and cytology /negative thus far - monitor chest tube drainage - enteral feeds - continue volume assist control - spontaneous breathing trials as tolerated - DVT prophylaxis - will likely need vent facility placement Nahun ARGUETA MD
[2018-04-21] MEDS ORDERED: PT OWN MED DRAWER 7, Y5N ONE ×4 (13:06→21:32)
[2018-04-21] MEDS: fentaNYL 50mcg/hr PATCH.TD72 TD SCH (13:13)
--- NOTE | 2018-04-21 15:21 | PN ---
Progress Note, Physician History of Present Illness: vented stable chest tube - Current Medication List Current Medications: Active Medications Amino Acids (Prosource No Carb Liquid Pkt) 30 ml PO BID@0800,1730 [facility] Calcium Carbonate (Calcium Carb Oral Suspension -) 500 mg PO BID [facility] Stop: 04/22/18 22:01 Last Admin: 04/21/18 11:23 Dose: 500 mg Enoxaparin Sodium (Lovenox -) 40 mg SQ DAILY [facility] Last Admin: 04/21/18 11:21 Dose: 40 mg Fentanyl (Duragesic 50mcg Patch -) 1 patch TD Q72H [facility] Stop: 04/25/18 12:29 Last Admin: 04/21/18 13:13 Dose: 1 patch Miscellaneous (Duragesic Patch Waste) 1 each TD PRN PRN PRN Reason: PAIN Last Admin: 04/21/18 13:14 Dose: 1 each Oxycodone HCl (Roxicodone -) 5 mg GT Q6H PRN PRN Reason: pain 6-10 Last Admin: 04/19/18 21:36 Dose: 5 mg Pantoprazole Sodium (Protonix Iv) 40 mg IVPUSH DAILY [facility] Last Admin: 04/21/18 11:19 Dose: 40 mg - Objective Vital Signs: Vital Signs Temperature 98.2 F 04/21/18 09:35 Pulse Rate 97 H 04/21/18 09:35 Respiratory Rate 24 04/21/18 15:05 Blood Pressure 122/92 04/21/18 09:35 O2 Sat by Pulse Oximetry (%) 100 04/21/18 05:31 Constitutional: Yes: No Distress, Calm Cardiovascular: Yes: Regular Rate and Rhythm Respiratory: Yes: Mechanically Ventilated, Other Gastrointestinal: Yes: Normal Bowel Sounds, Soft Extremities: Yes: WNL Neurological: Yes: Alert Psychiatric: Yes: Alert, Oriented Labs: CBC, BMP 04/21/18 07:00 04/21/18 07:00 INR, PTT INR 1.32 (0.82-1.09) H 04/18/18 06:00 Assessment/Plan Problem List - Problems (1) Sepsis Code(s): A41.9 - SEPSIS, UNSPECIFIED ORGANISM Qualifiers: Sepsis type: sepsis due to unspecified organism Qualified Code(s): A41.9 - Sepsis, unspecified organism (2) Pneumonia Code(s): J18.9 - PNEUMONIA, UNSPECIFIED ORGANISM Qualifiers: Pneumonia type: due to unspecified organism Laterality: unspecified laterality Lung location: unspecified part of lung Qualified Code(s): J18.9 - Pneumonia, unspecified organism Assessment/Plan 58 y.o. 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
[2018-04-21] MEDS: AMINO ACIDS/PROTEIN HYDROLYS 30 ML LIQUID.PKT PO SCH (17:00)
[2018-04-22 08:49] LABS: CHLORIDE 110 mmol/L (98-107); SODIUM 141 mmol/L (136-145)
[2018-04-22 09:05] LABS: ALBUMIN 2.1 g/dl (3.4-5.0); ALK PHOS 222 U/L (45-117); ANION GAP 10 (8-16); BILIRUBIN,TOTAL 0.2 mg/dL (0.2-1.0); BLOOD UREA NITROGEN 8 mg/dL (7-18); CO2 21 mmol/L (21-32); CREATININE 0.4 mg/dL (0.7-1.3); GLUCOSE,RANDOM 147 mg/dL (74-106); PHOSPHOROUS 2.1 mg/dL (2.5-4.9); POTASSIUM 3.9 mmol/L (3.5-5.1); SGPT/ALT 33 U/L (12-78); TOT PROT 5.2 g/dl (6.4-8.2)
[2018-04-22 09:06] LABS: MAGNESIUM 2.2 mg/dL (1.8-2.4); SGOT/AST 68 U/L (15-37)
[2018-04-22 09:23] LABS: CALCIUM 6.7 mg/dL (8.5-10.1)
[2018-04-22 09:26] LABS: HEMATOCRIT 34.4 % (35.4-49); HEMOGLOBIN 11.4 GM/dL (11.7-16.9); MCH 31.1 pg (25.7-33.7); MEAN PLT VOLUME 7.6 fl (7.5-11.1); PLATELET COUNT 289 K/MM3 (134-434); RBC 3.66 M/mm3 (4.00-5.60); RDW 16.2 % (11.9-15.9); WHITE BLOOD COUNT 7.3 K/mm3 (4.0-10.0)
--- NOTE | 2018-04-22 10:00 | PN ---
Physical Exam: SUBJECTIVE: Patient seen and examined Patient is tolerating Cpap. feels better. OBJECTIVE: Vital Signs Temperature 97.9 F 04/22/18 06:00 Pulse Rate 94 H 04/22/18 06:00 Respiratory Rate 28 H 04/22/18 06:00 Blood Pressure 109/80 04/22/18 06:00 O2 Sat by Pulse Oximetry (%) 97 04/22/18 06:00 GENERAL: Awake and alert on the vent. HEENT: Trach intact, dry mucosa w/o exudates NECK: positive for Tracheostomy LUNGS: Diminished Left breath sounds, scattered rhonchi on the right, Left pleural catheter HEART: regular rate and rhythm, normal S1 and S2 without murmur ABDOMEN: Soft, nontender, not distended, normoactive bowel sounds, no guarding, no rebound, no masses. No hepatomegaly MUSCULOSKELETAL: No CVA tenderness. EXTREMITIES: positive for pulses, warm, well-perfused. No peripheral edema. NEUROLOGICAL: CN 2-12 grossly intact .patient is nonverbal , answers by nodding his head. SKIN: Warm, dry, no rashes or lesions noted. CBCD WBC 7.3 K/mm3 (4.0-10.0) 04/22/18 08:55 RBC 3.66 M/mm3 (4.00-5.60) L 04/22/18 08:55 Hgb 11.4 GM/dL (11.7-16.9) L D 04/22/18 08:55 Hct 34.4 % (35.4-49) L D 04/22/18 08:55 MCV 94.0 fl (80-96) 04/22/18 08:55 MCHC 33.0 g/dl (32.0-35.9) 04/22/18 08:55 RDW 16.2 % (11.9-15.9) H 04/22/18 08:55 Plt Count 289 K/MM3 (134-434) 04/22/18 08:55 MPV 7.6 fl (7.5-11.1) 04/22/18 08:55 CMP Sodium 141 mmol/L (136-145) 04/22/18 07:00 Potassium 3.9 mmol/L (3.5-5.1) 04/22/18 07:00 Chloride 110 mmol/L (98-107) H 04/22/18 07:00 Carbon Dioxide 21 mmol/L (21-32) 04/22/18 07:00 Anion Gap 10 (8-16) 04/22/18 07:00 BUN 8 mg/dL (7-18) D 04/22/18 07:00 Creatinine 0.4 mg/dL (0.7-1.3) L 04/22/18 07:00 Creat Clearance w eGFR > 60 (>60) 04/22/18 07:00 Random Glucose 147 mg/dL (74-106) H D 04/22/18 07:00 Calcium 6.7 mg/dL (8.5-10.1) L* 04/22/18 07:00 Total Bilirubin 0.2 mg/dL (0.2-1.0) D 04/22/18 07:00 AST 68 U/L (15-37) H D 04/22/18 07:00 ALT 33 U/L (12-78) 04/22/18 07:00 Alkaline Phosphatase 222 U/L (45-117) H 04/22/18 07:00 Total Protein 5.2 g/dl (6.4-8.2) L 04/22/18 07:00 Albumin 2.1 g/dl (3.4-5.0) L 04/22/18 07:00 CARDIAC ENZYMES Troponin I < 0.02 ng/ml (0.00-0.05) 04/16/18 02:15 Active Medications Generic Name Dose Route Start Last Admin Trade Name Freq PRN Reason Stop Dose Admin Amino Acids 30 ml 04/21/18 17:30 04/21/18 17:00 Prosource No Carb Liquid Pkt PO 30 ml BID@0800,1730 [facility] Administration Calcium Carbonate 500 mg 04/21/18 10:00 04/21/18 21:25 Calcium Carb Oral Suspension - PO 04/22/18 22:01 500 mg BID [facility]KO Administration Enoxaparin Sodium 40 mg 04/19/18 10:00 04/21/18 11:21 Lovenox - SQ 40 mg DAILY [facility] Administration Fentanyl 1 patch 04/18/18 12:30 04/21/18 13:13 Duragesic 50mcg Patch - TD 04/25/18 12:29 1 patch Q72H [facility]KO Administration Miscellaneous 1 each 04/18/18 12:29 04/21/18 13:14 Duragesic Patch Waste TD 1 each PRN PRN Administration PAIN Oxycodone HCl 5 mg 04/18/18 15:40 04/19/18 21:36 Roxicodone - GT 5 mg Q6H PRN Administration pain 6-10 Pantoprazole Sodium 40 mg 04/17/18 16:30 04/21/18 11:19 Protonix Iv IVPUSH 40 mg DAILY [facility] Administration Home Medications Medication Instructions Recorded Calcitriol [Rocaltrol -] 0.25 mcg PEG BID #60 bot 02/14/18 Calcium 500Mg/Vit-D 200 Units 2 tab PO BID #120 tab 02/14/18 [Os-You 500+D -] FENTANYL 25mcg PATCH [DURAGESIC 1 patch TD Q72H 7 Days #1 box MDD 1 02/14/18 25mcg PATCH -] ASSESSMENT/PLAN: Patient is a 58 y/o male with h/o laryngeal cancer s/p laryngectomy, chemo and radiation, DVT s/p IVC filter , who presented with SOB and AMS and was found to have acute hypoxic respiratory failure and sepsis . # Acute hypoxic respiratory failure due to having bl PNA with Large L pleural effusion s/p sepsis .On vanco, zosyn and azithromycin. ID on the case fluid cx neg. so far. Pending cytology prior to discharge to LTAC , Chest tube in place, On IVF continue, cont mechanical vent. further management per Pulmonary. # h/o PE : has IVC filter. not on AC at home due to hematuria on AC . continue Px Lovenox # Transaminitis : likely due to sepsis : improved - f/u pleural fluid cultures and cytology before arranging the patient to LTAC DNR . Visit type - Emergency Visit Emergency Visit: Yes ED Registration Date: 04/16/18 Care time: The patient presented to the Emergency Department on the above date and was hospitalized for further evaluation of their emergent condition. - New Patient This patient is new to me today: No - Critical Care Critical Care patient: No - Discharge Referral Referred to [facility] Med P.C.: No
--- NOTE | 2018-04-22 10:05 | PN ---
Progress Note, Physician History of Present Illness: Pt seen and examined. Events noted. Pt is alert, ventilated. Currently afebrile , without distress. - Current Medication List Current Medications: Active Medications Amino Acids (Prosource No Carb Liquid Pkt) 30 ml PO BID@0800,1730 [facility] Last Admin: 04/21/18 17:00 Dose: 30 ml Calcium Carbonate (Calcium Carb Oral Suspension -) 500 mg PO BID [facility] Stop: 04/22/18 22:01 Last Admin: 04/21/18 21:25 Dose: 500 mg Enoxaparin Sodium (Lovenox -) 40 mg SQ DAILY [facility] Last Admin: 04/21/18 11:21 Dose: 40 mg Fentanyl (Duragesic 50mcg Patch -) 1 patch TD Q72H [facility] Stop: 04/25/18 12:29 Last Admin: 04/21/18 13:13 Dose: 1 patch Miscellaneous (Duragesic Patch Waste) 1 each TD PRN PRN PRN Reason: PAIN Last Admin: 04/21/18 13:14 Dose: 1 each Oxycodone HCl (Roxicodone -) 5 mg GT Q6H PRN PRN Reason: pain 6-10 Last Admin: 04/19/18 21:36 Dose: 5 mg Pantoprazole Sodium (Protonix Iv) 40 mg IVPUSH DAILY [facility] Last Admin: 04/21/18 11:19 Dose: 40 mg - Objective Vital Signs: Vital Signs Temperature 97.9 F 04/22/18 06:00 Pulse Rate 94 H 04/22/18 06:00 Respiratory Rate 28 H 04/22/18 06:00 Blood Pressure 109/80 04/22/18 06:00 O2 Sat by Pulse Oximetry (%) 97 04/22/18 06:00 Constitutional: Yes: No Distress, Calm Cardiovascular: Yes: Regular Rate and Rhythm Respiratory: Yes: Mechanically Ventilated (slight decreased BS in bases), Other (Lt CT) Gastrointestinal: Yes: Normal Bowel Sounds, Soft (+GT) Neurological: Yes: Alert Labs: CBC, BMP 04/22/18 08:55 04/22/18 07:00 INR, PTT INR 1.32 (0.82-1.09) H 04/18/18 06:00 Microbiology 04/16/18 02:12 Blood - Peripheral Venous Blood Culture - Final NO GROWTH AFTER 5 DAYS INCUBATION 04/16/18 03:16 Blood - Peripheral Venous Blood Culture - Final NO GROWTH AFTER 5 DAYS INCUBATION 04/16/18 10:16 Pleural Fluid Gram Stain - Final 04/16/18 10:16 Pleural Fluid Body Fluid Culture - Final NO GROWTH OF AEROBIC ORGANISMS AFTER 48 HOURS INCUBATION 04/16/18 10:16 Pleural Fluid Anaerobic Culture - Final NO ANAEROBES WERE ISOLATED 04/16/18 08:30 Sputum - Endotrachea Suction/Ventilator Gram Stain - Final 04/16/18 08:30 Sputum - Endotrachea Suction/Ventilator Sputum Culture - Final NORMAL RESPIRATORY CONNOR - ....Imaging Chest X-ray: Report Reviewed Problem List - Problems (1) Sepsis Code(s): A41.9 - SEPSIS, UNSPECIFIED ORGANISM Qualifiers: Qualified Code(s): A41.9 - Sepsis, unspecified organism (2) Pneumonia Code(s): J18.9 - PNEUMONIA, UNSPECIFIED ORGANISM Qualifiers: Qualified Code(s): J18.9 - Pneumonia, unspecified organism Assessment/Plan 58 y.o. male with laryngeal CA admitted with SOB, fever, leukopenia Met. laryneal CA Acute resp failure s/p trach, on MV Severe Sepsis PNA Pleural effusion s/p CT Hx DVT s/p IVC -- continue monitor off antibiotics for now pt afebrile, wbc normal
[2018-04-22] MEDS ORDERED: PT OWN MED DRAWER 7, Y5N ONE (10:06)
[2018-04-22] MEDS: PANTOPRAZOLE SODIUM 40 MG VIAL IVPUSH SCH (10:13)
[2018-04-22] MEDS: CALCIUM CARBONATE SUSPENSION - 500 MG/5 ML ML PO SCH ×2 (10:13→21:19)
[2018-04-22] MEDS: AMINO ACIDS/PROTEIN HYDROLYS 30 ML LIQUID.PKT PO SCH ×2 (10:13→17:26)
[2018-04-22] MEDS: ENOXAPARIN NA (PORCINE) 40 MG/0.4 ML DISP.SYRIN SQ SCH (10:14)
[2018-04-22] MEDS: oxyCODONE HCL 5 MG TABLET GT PRN ×3 (10:16→21:52)
--- NOTE | 2018-04-22 11:30 | PN ---
Progress Note (short form) - Note Progress Note: Patient seen and examined on the vent floor. Awake and interactive. AC mode of vent. Pleural catheter drained 40 cc of straw colored fluid. CXR: None today Intake & Output 04/19/18 04/20/18 04/21/18 04/22/18 23:59 23:59 23:59 23:59 Intake Total 3370 2949 1380 1000 Output Total 440 895 560 640 Balance 2930 2054 820 360 Last Vital Signs Temp Pulse Resp BP Pulse Ox 97.9 F 94 H 24 109/80 97 04/22/18 06:00 04/22/18 06:00 04/22/18 10:03 04/22/18 06:00 04/22/18 06:00 Active Medications Amino Acids (Prosource No Carb Liquid Pkt) 30 ml PO BID@0800,1730 [facility] Last Admin: 04/22/18 10:13 Dose: 30 ml Calcium Carbonate (Calcium Carb Oral Suspension -) 500 mg PO BID [facility] Stop: 04/22/18 22:01 Last Admin: 04/22/18 10:13 Dose: 500 mg Enoxaparin Sodium (Lovenox -) 40 mg SQ DAILY [facility] Last Admin: 04/22/18 10:14 Dose: 40 mg Fentanyl (Duragesic 50mcg Patch -) 1 patch TD Q72H [facility] Stop: 04/25/18 12:29 Last Admin: 04/21/18 13:13 Dose: 1 patch Miscellaneous (Duragesic Patch Waste) 1 each TD PRN PRN PRN Reason: PAIN Last Admin: 04/21/18 13:14 Dose: 1 each Oxycodone HCl (Roxicodone -) 5 mg GT Q6H PRN PRN Reason: pain 6-10 Last Admin: 04/22/18 10:16 Dose: 5 mg Pantoprazole Sodium (Protonix Iv) 40 mg IVPUSH DAILY [facility] Last Admin: 04/22/18 10:13 Dose: 40 mg GENERAL: Awake and alert on AC Mode of vent. HEENT: Trach intact, dry mucosa w/o exudates NECK: Tracheostomy site noted with no overt secretions LUNGS: Diminished Left breath sounds, scattered rhonchi on the right, Left pleural catheter HEART: Tachycardic with regular rhythm, normal S1 and S2 without murmur ABDOMEN: Soft, nontender, not distended, normoactive bowel sounds, no guarding, no rebound, no masses. No hepatomegaly MUSCULOSKELETAL: No CVA tenderness. UPPER EXTREMITIES: 2+ DP pulses, warm, well-perfused. No peripheral edema. NEUROLOGICAL: Cannot thoroughly assess due to agitation, confusion, nonverbal SKIN: Warm, dry, no rashes or lesions noted, No sacral decubiti appreciated Laboratory Results - last 24 hr 04/22/18 04/22/18 07:00 08:55 WBC 7.3 RBC 3.66 L Hgb 11.4 L D Hct 34.4 L D MCV 94.0 MCH 31.1 MCHC 33.0 RDW 16.2 H Plt Count 289 MPV 7.6 Sodium 141 Potassium 3.9 Chloride 110 H Carbon Dioxide 21 Anion Gap 10 BUN 8 D Creatinine 0.4 L Creat Clearance w eGFR > 60 Random Glucose 147 H D Calcium 6.7 L* Phosphorus 2.1 L Magnesium 2.2 Total Bilirubin 0.2 D AST 68 H D ALT 33 Alkaline Phosphatase 222 H Total Protein 5.2 L Albumin 2.1 L IMP: Acute on chronic respiratory failure Sepsis R/O aspiration PNA Neutropenia Malnutrition Laryngeal CA SBTs as tolerated ABX Per ID VTE prophylaxis DNR /DNI Check CXR in the AM: If low output plan to clamp pleural catheter and remove by Tuesday Dr Sims
[2018-04-23] MEDS: oxyCODONE HCL 5 MG TABLET GT PRN (06:44)
[2018-04-23] MEDS: ENOXAPARIN NA (PORCINE) 40 MG/0.4 ML DISP.SYRIN SQ SCH (09:08)
[2018-04-23] MEDS: PANTOPRAZOLE SODIUM 40 MG VIAL IVPUSH SCH (09:09)
[2018-04-23] MEDS: AMINO ACIDS/PROTEIN HYDROLYS 30 ML LIQUID.PKT PO SCH ×2 (09:09→17:11)
[2018-04-23 09:33] LABS: CALCIUM 7.4 mg/dL (8.5-10.1); CHLORIDE 109 mmol/L (98-107); POTASSIUM 3.7 mmol/L (3.5-5.1); SODIUM 144 mmol/L (136-145)
[2018-04-23 09:38] LABS: ALBUMIN 2.2 g/dl (3.4-5.0); ALK PHOS 247 U/L (45-117); ANION GAP 9 (8-16); BILIRUBIN,TOTAL 0.2 mg/dL (0.2-1.0); BLOOD UREA NITROGEN 9 mg/dL (7-18); CO2 26 mmol/L (21-32); CREATININE 0.4 mg/dL (0.7-1.3); GLUCOSE,RANDOM 125 mg/dL (74-106); MAGNESIUM 2.1 mg/dL (1.8-2.4); PHOSPHOROUS 2.4 mg/dL (2.5-4.9); SGOT/AST 88 U/L (15-37); SGPT/ALT 37 U/L (12-78); TOT PROT 5.4 g/dl (6.4-8.2)
[2018-04-23] MEDS ORDERED: DOCUSATE NA 100 MG/10 ML UNIT-DOSE CUPS PO PRN (09:42)
[2018-04-23] MEDS ORDERED: NAPH,MB-DB/K PH,MBDB POWDER PACKET GT ONE ×2 (10:00→14:00)
--- NOTE | 2018-04-23 12:03 | PN ---
Progress Note, Physician History of Present Illness: No new events. Pt remains alert, afebrile, without distress. - Current Medication List Current Medications: Active Medications Amino Acids (Prosource No Carb Liquid Pkt) 30 ml PO BID@0800,1730 [facility] Last Admin: 04/23/18 09:09 Dose: 30 ml Docusate Sodium (Colace Liquid -) 100 mg PO TID [facility] Enoxaparin Sodium (Lovenox -) 40 mg SQ DAILY [facility] Last Admin: 04/23/18 09:08 Dose: 40 mg Fentanyl (Duragesic 50mcg Patch -) 1 patch TD Q72H [facility] Stop: 04/25/18 12:29 Last Admin: 04/21/18 13:13 Dose: 1 patch Miscellaneous (Duragesic Patch Waste) 1 each TD PRN PRN PRN Reason: PAIN Last Admin: 04/21/18 13:14 Dose: 1 each Pantoprazole Sodium (Protonix Iv) 40 mg IVPUSH DAILY [facility] Last Admin: 04/23/18 09:09 Dose: 40 mg - Objective Vital Signs: Vital Signs Temperature 98.7 F 04/23/18 09:00 Pulse Rate 106 H 04/23/18 10:16 Respiratory Rate 22 04/23/18 09:00 Blood Pressure 140/88 04/23/18 09:00 O2 Sat by Pulse Oximetry (%) 98 04/23/18 10:55 Constitutional: Yes: No Distress, Calm Neck: Yes: Supple Cardiovascular: Yes: Regular Rate and Rhythm Respiratory: Yes: Regular, Other (trach collar) Gastrointestinal: Yes: Normal Bowel Sounds, Soft Neurological: Yes: Alert Labs: CBC, BMP 04/22/18 08:55 04/23/18 08:45 INR, PTT INR 1.32 (0.82-1.09) H 04/18/18 06:00 Problem List - Problems (1) Sepsis Code(s): A41.9 - SEPSIS, UNSPECIFIED ORGANISM Qualifiers: Sepsis type: sepsis due to unspecified organism Qualified Code(s): A41.9 - Sepsis, unspecified organism (2) Pneumonia Code(s): J18.9 - PNEUMONIA, UNSPECIFIED ORGANISM Qualifiers: Pneumonia type: due to unspecified organism Laterality: unspecified laterality Lung location: unspecified part of lung Qualified Code(s): J18.9 - Pneumonia, unspecified organism Assessment/Plan 58 y.o. male admitted to the ICU with laryngeal CA admitted with SOB, fever, leukopenia. Met. laryneal CA Acute resp failure s/p trach Severe Sepsis - resolved PNA - s/p course of antibiotics Pleural effusion s/p CT Hx DVT s/p IVC - pt remains stable, afebrile without distress monitor off antibiotics
--- NOTE | 2018-04-23 12:07 | PN ---
Progress Note (short form) - Note Progress Note: Patient seen and examined on the vent floor. Awake and interactive on Trach collar. Pleural catheter apparently drained 200 cc of straw colored fluid. CXR: None today Intake & Output 04/20/18 04/21/18 04/22/18 04/23/18 23:59 23:59 23:59 23:59 Intake Total 2949 1380 2050 1145 Output Total 476 939 5962 1050 Balance 2054 820 395 95 Last Vital Signs Temp Pulse Resp BP Pulse Ox 98.7 F 106 H 22 140/88 98 04/23/18 09:00 04/23/18 10:16 04/23/18 09:00 04/23/18 09:00 04/23/18 10:55 Active Medications Amino Acids (Prosource No Carb Liquid Pkt) 30 ml PO BID@0800,1730 [facility] Last Admin: 04/23/18 09:09 Dose: 30 ml Docusate Sodium (Colace Liquid -) 100 mg PO TID [facility] Enoxaparin Sodium (Lovenox -) 40 mg SQ DAILY [facility] Last Admin: 04/23/18 09:08 Dose: 40 mg Fentanyl (Duragesic 50mcg Patch -) 1 patch TD Q72H [facility] Stop: 04/25/18 12:29 Last Admin: 04/21/18 13:13 Dose: 1 patch Miscellaneous (Duragesic Patch Waste) 1 each TD PRN PRN PRN Reason: PAIN Last Admin: 04/21/18 13:14 Dose: 1 each Pantoprazole Sodium (Protonix Iv) 40 mg IVPUSH DAILY [facility] Last Admin: 04/23/18 09:09 Dose: 40 mg GENERAL: Awake and alert on Trach collar HEENT: Trach intact, dry mucosa w/o exudates NECK: Tracheostomy site noted with no overt secretions LUNGS: Diminished Left breath sounds, scattered rhonchi on the right, Left pleural catheter HEART: Tachycardic with regular rhythm, normal S1 and S2 without murmur ABDOMEN: Soft, nontender, not distended, normoactive bowel sounds, no guarding, no rebound, no masses. No hepatomegaly MUSCULOSKELETAL: No CVA tenderness. UPPER EXTREMITIES: 2+ DP pulses, warm, well-perfused. No peripheral edema. NEUROLOGICAL: Cannot thoroughly assess due to agitation, confusion, nonverbal SKIN: Warm, dry, no rashes or lesions noted, No sacral decubiti appreciated Laboratory Results - last 24 hr 04/23/18 08:45 Sodium 144 Potassium 3.7 Chloride 109 H Carbon Dioxide 26 D Anion Gap 9 BUN 9 Creatinine 0.4 L Creat Clearance w eGFR > 60 Random Glucose 125 H Calcium 7.4 L Phosphorus 2.4 L Magnesium 2.1 Total Bilirubin 0.2 AST 88 H D ALT 37 Alkaline Phosphatase 247 H Total Protein 5.4 L Albumin 2.2 L IMP: Acute on chronic respiratory failure Sepsis R/O aspiration PNA Neutropenia Malnutrition Laryngeal CA Trach collar as tolerated ABX Per ID VTE prophylaxis DNR /DNI Check CXR in the AM: If stable and low output remove pleural catheter Check cytology (apparently sent Tuesday) Dr Sims
[2018-04-23] MEDS ORDERED: PT OWN MED DRAWER 7, Y5N ONE ×2 (13:11→20:20)
[2018-04-23] MEDS: DOCUSATE NA 100 MG/10 ML UNIT-DOSE CUPS PO SCH ×2 (13:41→21:57)
[2018-04-23] MEDS: oxyCODONE HCL 5 MG TABLET PO PRN (14:06)
--- NOTE | 2018-04-23 14:09 | PN ---
Physical Exam: SUBJECTIVE: Pt has been on CPAP overnight tolerating the wean well. Pt to be placed to trach collar for weaning attempt. From midnight to now pt has had 200cc of pleural fluid draining from the chest tube. Otherwise pt has no new complaints today. On morning rounds by nursing staff pt was found to have a tense abdomen and a bladder scan was performed resultingin 200s,200s, 400s. Pt urinated ~50cc of urine. OBJECTIVE: Vital Signs Period Temp Pulse Resp BP Sys/Shrestha Pulse Ox Last 24 Hr 97.5 F-98.7 F 97-111 22-29 115-140/58-89 96-98 GENERAL: NAD, awake, alert, thin-appearing HEENT: SEVEN, sclera anicteric, dry mucosa, temporal wasting noted NECK: Tracheostomy site C/D/I, no sputum noted LUNGS: Improved aeration down to the bases. No accessory muscle use. CPAP mode HEART: RRR, normal S1 and S2 without murmur ABDOMEN: Soft, tense, nontender, not distended, normoactive bowel sounds, no guarding, no rebound, no masses. No hepatomegaly. No distention of bladder per percussion MUSCULOSKELETAL: No CVA tenderness. UPPER EXTREMITIES: 2+ DP pulses, warm, well-perfused. No peripheral edema. SKIN: Warm, dry, no rashes or lesions noted Laboratory Results - last 24 hr 04/23/18 08:45 Sodium 144 Potassium 3.7 Chloride 109 H Carbon Dioxide 26 D Anion Gap 9 BUN 9 Creatinine 0.4 L Creat Clearance w eGFR > 60 Random Glucose 125 H Calcium 7.4 L Phosphorus 2.4 L Magnesium 2.1 Total Bilirubin 0.2 AST 88 H D ALT 37 Alkaline Phosphatase 247 H Total Protein 5.4 L Albumin 2.2 L Active Medications Generic Name Dose Route Start Last Admin Trade Name Freq PRN Reason Stop Dose Admin Amino Acids 30 ml 04/21/18 17:30 04/23/18 09:09 Prosource No Carb Liquid Pkt PO 30 ml BID@0800,1730 [facility] Administration Docusate Sodium 100 mg 04/23/18 14:00 04/23/18 13:41 Colace Liquid - PO 100 mg TID [facility] Administration Enoxaparin Sodium 40 mg 04/19/18 10:00 04/23/18 09:08 Lovenox - SQ 40 mg DAILY [facility] Administration Fentanyl 1 patch 04/18/18 12:30 04/21/18 13:13 Duragesic 50mcg Patch - TD 04/25/18 12:29 1 patch Q72H [facility] Administration Miscellaneous 1 each 04/18/18 12:29 04/21/18 13:14 Duragesic Patch Waste TD 1 each PRN PRN Administration PAIN Oxycodone HCl 5 mg 04/23/18 13:39 04/23/18 14:06 Roxicodone - PO 5 mg Q8H PRN Administration PAIN LEVEL 6-10 Pantoprazole Sodium 40 mg 04/17/18 16:30 04/23/18 09:09 Protonix Iv IVPUSH 40 mg DAILY [facility] Administration ASSESSMENT/PLAN: 1) Severe sepsis 2/2 to ? aspiration PNA --Resolving --ID on board: --Completed 5 days of IV ABX --Observing off antibiotics right now; has been afebrile --Tylenol 650mg GT q6h for fevers --Sputum culture normal sudhir 2) Acute hypoxic respiratory dysfunction --CPAP and possible wean back to trach collar today --Maintain SpO2 >90% --Aspiration precautions: HOB elevated --Fentanyl 50mcg Patch --Oxycodone 5 GT PRN pain 6-10 --Colace liquid added (tension of abd may be due to developing constipation) --Pleural cytology sent tuesday --Most likely malignant effusion which may require PleurX catheter 3) ? Urinary retention --To be bladder scanned in 1hr --If overall readings increased will straight cath and observe off tom --If overall readings decreased; continue to monitor Cr and bladder distention for now 4) G-tube dislodgement Resolved --Feeds continuing after patency confirmed by XR 5) H/o PE --IVC filter previously placed --No AC due to prior hematuria and blood from meatus --Continue Lovenox 40mg qDaily 6) Neutropenia --RESOLVED FEN: Fluids: None Electrolyte abnormalities: Pseudohypocalcemia (cCa 8.88); Hypophosphatemia ( repleted Na-K Phos packet GT) Nutrition: Continue feeds as above, add Prosources 30mg BID PPX: DVT - Lovenox 40mg qDaily Code Status: DNR Dispo: M/S monitoring; continue to wean back to trach collar; pt's insurance doesn't cover Pulm SNF (discuss with SW for other options) Case discussed with Dr. Js Breaux, DO - IM PGY-1 Visit type - Emergency Visit Emergency Visit: No - New Patient This patient is new to me today: No - Critical Care Critical Care patient: No
[2018-04-24] MEDS: oxyCODONE HCL 5 MG TABLET PO PRN ×2 (01:22→17:12)
[2018-04-24] MEDS: DOCUSATE NA 100 MG/10 ML UNIT-DOSE CUPS PO SCH ×3 (06:34→21:27)
[2018-04-24 08:42] LABS: ALBUMIN 2.1 g/dl (3.4-5.0); ANION GAP 7 (8-16); BLOOD UREA NITROGEN 10 mg/dL (7-18); CALCIUM 7.2 mg/dL (8.5-10.1); CHLORIDE 108 mmol/L (98-107); CO2 28 mmol/L (21-32); CREATININE 0.4 mg/dL (0.7-1.3); GLUCOSE,RANDOM 111 mg/dL (74-106); PHOSPHOROUS 2.9 mg/dL (2.5-4.9); POTASSIUM 3.8 mmol/L (3.5-5.1); SODIUM 143 mmol/L (136-145)
[2018-04-24] MEDS: PANTOPRAZOLE SODIUM 40 MG VIAL IVPUSH SCH (10:04)
[2018-04-24] MEDS: ENOXAPARIN NA (PORCINE) 40 MG/0.4 ML DISP.SYRIN SQ SCH (10:04)
[2018-04-24] MEDS: AMINO ACIDS/PROTEIN HYDROLYS 30 ML LIQUID.PKT PO SCH ×2 (10:04→17:12)
--- NOTE | 2018-04-24 12:16 | PN ---
Progress Note (short form) - Note Progress Note: Patient seen and examined on the vent floor. Awake and interactive on Trach collar. Pleural catheter apparently drained 40 cc of straw colored fluid. CXR: None today Intake & Output 04/21/18 04/22/18 04/23/18 04/24/18 23:59 23:59 23:59 23:59 Intake Total 1380 2050 2165 950 Output Total 560 1655 1820 290 Balance 820 395 345 660 Last Vital Signs Temp Pulse Resp BP Pulse Ox 98.7 F 110 H 22 115/68 96 04/24/18 05:46 04/24/18 07:54 04/24/18 05:46 04/24/18 05:46 04/24/18 11:27 Active Medications Amino Acids (Prosource No Carb Liquid Pkt) 30 ml PO BID@0800,1730 [facility] Last Admin: 04/24/18 10:04 Dose: 30 ml Docusate Sodium (Colace Liquid -) 100 mg PO TID [facility] Last Admin: 04/24/18 06:34 Dose: 100 mg Enoxaparin Sodium (Lovenox -) 40 mg SQ DAILY [facility] Last Admin: 04/24/18 10:04 Dose: 40 mg Fentanyl (Duragesic 50mcg Patch -) 1 patch TD Q72H [facility] Stop: 04/25/18 12:29 Last Admin: 04/21/18 13:13 Dose: 1 patch IV Flush (Shrei-Cath Flush) 10 ml IVPUSH PRN PRN PRN Reason: FLUSH Miscellaneous (Duragesic Patch Waste) 1 each TD PRN PRN PRN Reason: PAIN Last Admin: 04/21/18 13:14 Dose: 1 each Oxycodone HCl (Roxicodone -) 5 mg PO Q6H PRN PRN Reason: PAIN LEVEL 6-10 Pantoprazole Sodium (Protonix Iv) 40 mg IVPUSH DAILY [facility] Last Admin: 04/24/18 10:04 Dose: 40 mg GENERAL: Awake and alert on Trach collar HEENT: Trach intact, dry mucosa w/o exudates NECK: Tracheostomy site noted with no overt secretions LUNGS: Diminished Left breath sounds, scattered rhonchi on the right, Left pleural catheter HEART: Tachycardic with regular rhythm, normal S1 and S2 without murmur ABDOMEN: Soft, nontender, not distended, normoactive bowel sounds, no guarding, no rebound, no masses. No hepatomegaly MUSCULOSKELETAL: No CVA tenderness. UPPER EXTREMITIES: 2+ DP pulses, warm, well-perfused. No peripheral edema. NEUROLOGICAL: Cannot thoroughly assess due to agitation, confusion, nonverbal SKIN: Warm, dry, no rashes or lesions noted, No sacral decubiti appreciated Laboratory Results - last 24 hr 04/24/18 07:00 Sodium 143 Potassium 3.8 Chloride 108 H Carbon Dioxide 28 Anion Gap 7 L BUN 10 Creatinine 0.4 L Random Glucose 111 H Calcium 7.2 L Phosphorus 2.9 D Magnesium 2.0 Albumin 2.1 L IMP: Acute on chronic respiratory failure Sepsis R/O aspiration PNA Neutropenia Malnutrition Laryngeal CA Remove Pleural catheter Check CXR Trach collar as tolerated ABX Per ID VTE prophylaxis DNR /DNI Check cytology (apparently sent Tuesday) Dr Sims
--- NOTE | 2018-04-24 12:19 | PN ---
Progress Note, Physician History of Present Illness: patient stable no new issues plan to remove the chest tube - Current Medication List Current Medications: Active Medications Amino Acids (Prosource No Carb Liquid Pkt) 30 ml PO BID@0800,1730 [facility] Last Admin: 04/24/18 10:04 Dose: 30 ml Docusate Sodium (Colace Liquid -) 100 mg PO TID [facility] Last Admin: 04/24/18 06:34 Dose: 100 mg Enoxaparin Sodium (Lovenox -) 40 mg SQ DAILY [facility] Last Admin: 04/24/18 10:04 Dose: 40 mg Fentanyl (Duragesic 50mcg Patch -) 1 patch TD Q72H [facility] Stop: 04/25/18 12:29 Last Admin: 04/21/18 13:13 Dose: 1 patch IV Flush (Sheri-Cath Flush) 10 ml IVPUSH PRN PRN PRN Reason: FLUSH Miscellaneous (Duragesic Patch Waste) 1 each TD PRN PRN PRN Reason: PAIN Last Admin: 04/21/18 13:14 Dose: 1 each Oxycodone HCl (Roxicodone -) 5 mg PO Q6H PRN PRN Reason: PAIN LEVEL 6-10 Pantoprazole Sodium (Protonix Iv) 40 mg IVPUSH DAILY [facility] Last Admin: 04/24/18 10:04 Dose: 40 mg - Objective Vital Signs: Vital Signs Temperature 98.7 F 04/24/18 05:46 Pulse Rate 110 H 04/24/18 07:54 Respiratory Rate 22 04/24/18 05:46 Blood Pressure 115/68 04/24/18 05:46 O2 Sat by Pulse Oximetry (%) 96 04/24/18 11:27 Constitutional: Yes: No Distress, Calm HENT: Yes: Other (tracheostomy in place) Cardiovascular: Yes: Regular Rate and Rhythm Respiratory: Yes: Regular, CTA Bilaterally Gastrointestinal: Yes: Normal Bowel Sounds, Soft, Other (peg in place) Musculoskeletal: Yes: WNL Extremities: Yes: Other Neurological: Yes: Alert, Oriented Psychiatric: Yes: Alert, Oriented Labs: CBC, BMP 04/22/18 08:55 04/24/18 07:00 INR, PTT INR 1.32 (0.82-1.09) H 04/18/18 06:00 Assessment/Plan Problem List - Problems (1) Sepsis Code(s): A41.9 - SEPSIS, UNSPECIFIED ORGANISM Qualifiers: Sepsis type: sepsis due to unspecified organism Qualified Code(s): A41.9 - Sepsis, unspecified organism (2) Pneumonia Code(s): J18.9 - PNEUMONIA, UNSPECIFIED ORGANISM Qualifiers: Pneumonia type: due to unspecified organism Laterality: unspecified laterality Lung location: unspecified part of lung Qualified Code(s): J18.9 - Pneumonia, unspecified organism Assessment/Plan 58 y.o. 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
--- NOTE | 2018-04-24 12:47 | PN ---
Addendum entered and electronically signed by Shay Breaux, RESIDENT 04/24/18 20:19: Due to minimal drainage, Chest tube removed earlier in afternoon Original Note: <Shay Breaux - Last Filed: 04/24/18 20:19> Physical Exam: SUBJECTIVE: No complaints today. Pt without any distress and Chest Tube draining minimal today. OBJECTIVE: Vital Signs Period Temp Pulse Resp BP Sys/Shrestha Pulse Ox Last 24 Hr 97.7 F-98.7 F 73-111 22-22 115-124/68-92 96-100 GENERAL: NAD, awake, alert, thin-appearing HEENT: SEVEN, sclera anicteric, dry mucosa, temporal wasting noted NECK: Tracheostomy site intact, suctioned copious amounts of whitish sputum from trach LUNGS: Improved aeration down to the bases. No accessory muscle use. Trach collar with blow-by oxygen HEART: RRR, normal S1 and S2 without murmur ABDOMEN: Soft, tense, nontender, not distended, normoactive bowel sounds, no guarding, no rebound, no masses. No hepatomegaly. No distention of bladder per percussion MUSCULOSKELETAL: No CVA tenderness. UPPER EXTREMITIES: 2+ DP pulses, warm, well-perfused. No peripheral edema. SKIN: Warm, dry, no rashes or lesions noted Laboratory Results - last 24 hr 04/24/18 07:00 Sodium 143 Potassium 3.8 Chloride 108 H Carbon Dioxide 28 Anion Gap 7 L BUN 10 Creatinine 0.4 L Random Glucose 111 H Calcium 7.2 L Phosphorus 2.9 D Magnesium 2.0 Albumin 2.1 L Active Medications Generic Name Dose Route Start Last Admin Trade Name Koki PRN Reason Stop Dose Admin Amino Acids 30 ml 04/21/18 17:30 04/24/18 10:04 Prosource No Carb Liquid Pkt PO 30 ml BID@0800,1730 [facility] Administration Docusate Sodium 100 mg 04/23/18 14:00 04/24/18 06:34 Colace Liquid - PO 100 mg TID [facility] Administration Enoxaparin Sodium 40 mg 04/19/18 10:00 04/24/18 10:04 Lovenox - SQ 40 mg DAILY [facility] Administration Fentanyl 1 patch 04/18/18 12:30 04/21/18 13:13 Duragesic 50mcg Patch - TD 04/25/18 12:29 1 patch Q72H [facility] Administration IV Flush 10 ml 04/23/18 16:59 Sheri-Cath Flush IVPUSH PRN PRN FLUSH Miscellaneous 1 each 04/18/18 12:29 04/21/18 13:14 Duragesic Patch Waste TD 1 each PRN PRN Administration PAIN Oxycodone HCl 5 mg 04/24/18 11:05 Roxicodone - PO Q6H PRN PAIN LEVEL 6-10 Pantoprazole Sodium 40 mg 04/17/18 16:30 04/24/18 10:04 Protonix Iv IVPUSH 40 mg DAILY [facility] Administration ASSESSMENT/PLAN: 1) Severe sepsis 2/2 to ? aspiration PNA --Resolving --ID on board: --Completed 5 days of IV ABX --Observing off antibiotics right now; has been afebrile --Tylenol 650mg GT q6h for fevers --Sputum culture normal sudhir 2) Acute hypoxic respiratory dysfunction --Maintain trach collar --Maintain SpO2 >90% --Aspiration precautions: HOB elevated --CXR --Fentanyl 50mcg Patch --Oxycodone 5 GT PRN pain 6-10 --Colace liquid added (tension of abd may be due to developing constipation) --AXR today --Pleural cytology sent tuesday --Most likely malignant effusion which may require PleurX catheter 4) G-tube dislodgement Resolved --Feeds continuing after patency confirmed by XR 5) H/o PE --IVC filter previously placed --No AC due to prior hematuria and blood from meatus --Continue Lovenox 40mg qDaily 6) Neutropenia --RESOLVED FEN: Fluids: None Electrolyte abnormalities: Pseudohypocalcemia (cCa 8.72) Nutrition: Continue feeds as above, add Prosources 30mg BID PPX: DVT - Lovenox 40mg qDaily Code Status: DNR Dispo: M/S monitoring; pt's insurance doesn't cover Pulm SNF (discuss with SW for other options); palliative on board Case discussed with Dr. Js Breaux, DO - IM PGY-1 Visit type - Emergency Visit Emergency Visit: No - New Patient This patient is new to me today: No - Critical Care Critical Care patient: No <Rasta Weinstein - Last Filed: 04/24/18 21:07> Physical Exam: Waiting for cytology result prior to discahrging the Patient. Will get involved in his care.
[2018-04-24] MEDS: fentaNYL 50mcg/hr PATCH.TD72 TD SCH (13:08)
[2018-04-24] MEDS ORDERED: PT OWN MED DRAWER 7, Y5N ONE ×2 (16:44→21:14)
--- NOTE | 2018-04-24 23:20 | CONSULT ---
Consult - text type - Consultation Consultation Note: 58 y.o. male with PMH of Laryngeal CA with metastasis to bone, tracheostomy, and DVT s/p IVC filter brought in with altered mental status, shortness of breath,fever, and rigors. Reportedly received chemotherapy approximately 2 wks ago. CXR revealed large pleural effusion and Rt lung consolidation. Thoracentesis was done, Currently he is resting comfortably. denies fever/chills/cough/SOB/abdominal pain/nausea/vomiting/diarrhea/urinary symptoms denies any pain - History Source History Provided By: Medical Record Limitations to Obtaining History: Other (pt sedated, intubated) - Past Medical History Pulmonary: Yes: Previously Intubated (tracheal stoma) Heme/Onc: Yes: Cancer (laryngeal CA with mets to bone) Endocrine: Yes: Hypothyroidism history of laryngeal cancer in 07/31, when he presented with hoarseness of voice. s/p laryngectomy s/p trach/peg placement on August 2017. - Smoking History Smoking history: Unknown if ever smoked Home Medications - Allergies Allergies/Adverse Reactions: Allergies Allergy/AdvReac Type Severity Reaction Status Date / Time No Known Allergies Allergy Verified 04/16/18 01:31 - Home Medications Home Medications: Ambulatory Orders Calcitriol [Rocaltrol -] 0.25 mcg PEG BID #60 bot 02/14/18 Calcium 500Mg/Vit-D 200 Units [Os-You 500+D -] 2 tab PO BID #120 tab 02/14/18 FENTANYL 25mcg PATCH [DURAGESIC 25mcg PATCH -] 1 patch TD Q72H 7 Days #1 box MDD 1 02/14/18 Sodium Chloride Tablet - 1 gm GT BID #60 tablet 02/14/18 Family Disease History - Family Disease History Family History: Unable to Obtain (pt on MV/sedated) Review of Systems Unable to obtain ROS, reason: Pt sedated, on MV Physical Exam Vital Signs: Last Vital Signs Temp Pulse Resp BP Pulse Ox 98.6 F 109 H 20 138/99 98 04/24/18 19:12 04/24/18 20:45 04/24/18 21:00 04/24/18 19:12 04/24/18 21:00 Constitutional: Yes: No Distress, Neck: Yes: Supple, Other (trach) Cardiovascular: Yes: Tachycardia Respiratory: Yes: decreased at bases Gastrointestinal: Yes: Normal Bowel Sounds, Soft, PEG+ Extremities: Yes: WNL Integumentary: Yes: WNL Labs: Abnormal Lab Results 04/24/18 07:00 Chloride 108 H Anion Gap 7 L Creatinine 0.4 L Random Glucose 111 H Calcium 7.2 L Albumin 2.1 L - Results Cat Scan: Report Reviewed (Chest : Lt pleural effusion, Rt increased markings/ consolidation) Problem List - Problems (1) Sepsis Code(s): A41.9 - SEPSIS, UNSPECIFIED ORGANISM Qualifiers: Sepsis type: sepsis due to unspecified organism Qualified Code(s): A41.9 - Sepsis, unspecified organism (2) Pneumonia Code(s): J18.9 - PNEUMONIA, UNSPECIFIED ORGANISM Qualifiers: Pneumonia type: due to unspecified organism Laterality: unspecified laterality Lung location: unspecified part of lung Qualified Code(s): J18.9 - Pneumonia, unspecified organism Assessment/Plan 58 y.o. 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 aspiration--s/p antibiotics Pleural Effusion s/p thoracentesis and chest tube drainage----awaiting pleural fluid cytology Metastatic laryngeal CA Hx of DVT s/p IVC filter history of laryngeal cancer in 07/31, when he presented with hoarseness of voice. s/p laryngectomy s/p trach/peg placement on August 2017. was on weekly carbo/taxol being treated at [facility] ? s/p RT to spine and hip currenlty no pain ? last chemo 2 weeks ago will get details from his and treating oncologist awaiting pleural fluid cytology to decide on pleurex placement
[2018-04-25] MEDS: DOCUSATE NA 100 MG/10 ML UNIT-DOSE CUPS PO SCH ×3 (06:35→21:59)
--- NOTE | 2018-04-25 06:51 | PN ---
Physical Exam: UPDATE 1: Spoke with , Jose, and Radha at bedside and recommended short term facility for strengthening/improvement due to deconditioning. Previous discussions with Radha have brought up possibly seeing a psychiatrist or psychologist to express himself over what has happened suddenly over the past year. --Ordering psychology consult --Lexapro 10mg daily ordered SUBJECTIVE: Pt this morning found with trach on bed without pt being in distress. 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 When seen today pt reports not pulling out his trach, but it becoming dislodged without him realizing OBJECTIVE: Vital Signs Period Temp Pulse Resp BP Sys/Shrestha Pulse Ox Last 24 Hr 98.5 F-98.6 F 108-110 20-22 138-142/96-99 96-98 GENERAL: NAD, awake, alert, thin-appearing HEENT: SEVEN, sclera anicteric, dry mucosa, temporal wasting noted NECK: Tracheostomy site intact, suctioned copious amounts of whitish sputum from trach LUNGS: Improved aeration down to the bases. No accessory muscle use. Trach collar with blow-by oxygen HEART: RRR, normal S1 and S2 without murmur ABDOMEN: Soft, tense, nontender, not distended, normoactive bowel sounds, no guarding, no rebound, no masses. No hepatomegaly. No distention of bladder per percussion MUSCULOSKELETAL: No CVA tenderness. UPPER EXTREMITIES: 2+ DP pulses, warm, well-perfused. Ankle edema noted. SKIN: Warm, dry, no rashes or lesions noted Laboratory Results - last 24 hr 04/24/18 07:00 Sodium 143 Potassium 3.8 Chloride 108 H Carbon Dioxide 28 Anion Gap 7 L BUN 10 Creatinine 0.4 L Random Glucose 111 H Calcium 7.2 L Phosphorus 2.9 D Magnesium 2.0 Albumin 2.1 L Active Medications Generic Name Dose Route Start Last Admin Trade Name Freq PRN Reason Stop Dose Admin Amino Acids 30 ml 04/21/18 17:30 04/24/18 17:12 Prosource No Carb Liquid Pkt PO 30 ml BID@0800,1730 YUKO Administration Docusate Sodium 100 mg 04/23/18 14:00 04/25/18 06:35 Colace Liquid - PO 100 mg TID YUKO Administration Enoxaparin Sodium 40 mg 04/19/18 10:00 04/24/18 10:04 Lovenox - SQ 40 mg DAILY YUKO Administration Fentanyl 1 patch 04/25/18 07:00 Duragesic 25mcg Patch - TD 05/02/18 06:48 Q72H YUKO IV Flush 10 ml 04/23/18 16:59 Sheri-Cath Flush IVPUSH PRN PRN FLUSH Miscellaneous 1 each 04/18/18 12:29 04/21/18 13:14 Duragesic Patch Waste TD 1 each PRN PRN Administration PAIN Oxycodone HCl 5 mg 04/24/18 11:05 04/24/18 17:12 Roxicodone - PO 5 mg Q6H PRN Administration PAIN LEVEL 6-10 Pantoprazole Sodium 40 mg 04/17/18 16:30 04/24/18 10:04 Protonix Iv IVPUSH 40 mg DAILY YUKO Administration ASSESSMENT/PLAN: 1) Severe sepsis 2/2 to ? aspiration PNA --Resolving --ID on board: --Completed 5 days of IV ABX --Observing off antibiotics right now; has been afebrile --Tylenol 650mg GT q6h for fevers --Sputum culture normal sudhir 2) Acute hypoxic respiratory dysfunction --Maintain trach collar --Maintain SpO2 >90% --Aspiration precautions: HOB elevated --Reduced to Fentanyl 25mcg Patch --Oxycodone 5 GT PRN pain 6-10 --Pleural cytology sent tuesday showing no malignant cells; no further investigation to be done 3) Edema --Likely dependent edema due to lack of movement and positioning in bed 4) Abdominal tension --Likely 2/2 to ileus from pain medication --AXR showing possible ileus without obstructive patterning --Colace liquid on board -- reports pt had efficacy with suppositories; will order one q3days 5) H/o PE --IVC filter previously placed --No AC due to prior hematuria and blood from meatus --Continue Lovenox 40mg qDaily 6) Neutropenia --RESOLVED FEN: Fluids: None Electrolyte abnormalities: Pseudohypocalcemia Nutrition: Continue Jevity feeds, add Prosources 30mg BID PPX: DVT - Lovenox 40mg qDaily Code Status: DNR Dispo: M/S monitoring; palliative on board; awaiting options from insurance for short-term facility Case discussed with Dr. Js Breaux, DO - IM PGY-1 Visit type - Emergency Visit Emergency Visit: No - New Patient This patient is new to me today: No - Critical Care Critical Care patient: No
--- NOTE | 2018-04-25 06:52 | RAPID ---
Physical Examination Vital Signs: Vital Signs Temperature 98.6 F 04/24/18 19:12 Pulse Rate 109 H 04/24/18 20:45 Respiratory Rate 20 04/24/18 21:00 Blood Pressure 138/99 04/24/18 19:12 O2 Sat by Pulse Oximetry (%) 98 04/24/18 21:00 Constitutional: Yes: No Distress, Calm Neck: Yes: Supple, Trachea Midline, Other (tracheostomy tube completely dislodged) Cardiovascular: Yes: Tachycardia, S1, S2. No: JVD, Gallop, Murmur, Rub Respiratory: Yes: Regular, CTA Bilaterally Labs: CBC, BMP 04/22/18 08:55 04/24/18 07:00 Rapid Response - Rapid Response Assessment: Rapid response called due to dislodged tracheostomy tube. On arrival vital signs were BP 122/68, HR 115, Saturation 60%. Patient not in respiratory distress at this time. Recommendations/Interventions: Airway was suctioned, yielding thick secretions. Original tracheostomy tube was reinserted into the tracheostomy stoma, the cuff was reinflated and the tube was resecured. Upon ventilation with BVM, saturation returned to 100%. Repeat vital signs stable. Breath sounds equal b/l after tracheostomy replacement.
[2018-04-25] MEDS ORDERED: fentaNYL 50mcg/hr PATCH.TD72 TD SCH (07:30)
[2018-04-25 08:40] LABS: HEMATOCRIT 30.2 % (35.4-49); HEMOGLOBIN 10.1 GM/dL (11.7-16.9); MCH 30.9 pg (25.7-33.7); MCHC 33.3 g/dl (32.0-35.9); MEAN CELL VOLUME 92.8 fl (80-96); MEAN PLT VOLUME 8.1 fl (7.5-11.1); PLATELET COUNT 242 K/MM3 (134-434); RBC 3.25 M/mm3 (4.00-5.60); RDW 16.1 % (11.9-15.9); WHITE BLOOD COUNT 8.1 K/mm3 (4.0-10.0)
[2018-04-25 09:02] LABS: ANION GAP 8 (8-16); CHLORIDE 104 mmol/L (98-107); CO2 31 mmol/L (21-32); GLUCOSE,RANDOM 133 mg/dL (74-106); MAGNESIUM 1.9 mg/dL (1.8-2.4); POTASSIUM 3.9 mmol/L (3.5-5.1); SODIUM 143 mmol/L (136-145)
[2018-04-25 09:09] LABS: BLOOD UREA NITROGEN 11 mg/dL (7-18); CALCIUM 7.3 mg/dL (8.5-10.1); CREATININE 0.4 mg/dL (0.7-1.3); PHOSPHOROUS 2.8 mg/dL (2.5-4.9)
[2018-04-25] MEDS: oxyCODONE HCL 5 MG TABLET PO PRN ×2 (09:54→23:42)
[2018-04-25] MEDS: PANTOPRAZOLE SODIUM 40 MG VIAL IVPUSH SCH (09:55)
[2018-04-25] MEDS: ENOXAPARIN NA (PORCINE) 40 MG/0.4 ML DISP.SYRIN SQ SCH (09:55)
[2018-04-25] MEDS: fentaNYL 25mcg/hr PATCH.TD72 TD SCH (09:55)
[2018-04-25] MEDS: AMINO ACIDS/PROTEIN HYDROLYS 30 ML LIQUID.PKT PO SCH ×2 (09:55→17:36)
--- NOTE | 2018-04-25 12:50 | PATH ---
Cytology Non-Gynecological Report Patient Name: [facility]. Rec. #: [id number] /Age/Gender: 1960 (Age: 58) / M Account: [id number] Location: [address] [place] [address] Taken: 04/21/2018 Received: 04/24/2018 Reported: 04/25/2018 Physicians: Polina Rodriguez M.D. Specimen(s) Received PLEURAL FLUID Clinical History Pleural effusion Final Diagnosis PLEURAL FLUID, THORACENTESIS: SATISFACTORY FOR EVALUATION NO MALIGNANT CELLS IDENTIFIED. MESOTHELIAL CELLS AND SOME LYMPHOCYTES PRESENT. Electronically Signed Dianne Downey M.D. Gross Description Approximately 5cc of yellow fluid received fresh. Two cytofunnels and one cellblock prepared.
--- NOTE | 2018-04-25 14:48 | PN ---
Teaching Attending Note Name of Resident: Shay Breaux ATTENDING PHYSICIAN STATEMENT I saw and evaluated the patient. I reviewed the resident's note and discussed the case with the resident. I agree with the resident's findings and plan as documented. SUBJECTIVE: OBJECTIVE: Vital Signs Temperature 98.2 F 04/25/18 06:50 Pulse Rate 237 H 04/25/18 11:54 Respiratory Rate 20 04/25/18 06:50 Blood Pressure 145/86 04/25/18 06:50 O2 Sat by Pulse Oximetry (%) 98 04/25/18 11:54 CBCD WBC 8.1 K/mm3 (4.0-10.0) 04/25/18 07:45 RBC 3.25 M/mm3 (4.00-5.60) L 04/25/18 07:45 Hgb 10.1 GM/dL (11.7-16.9) L D 04/25/18 07:45 Hct 30.2 % (35.4-49) L 04/25/18 07:45 MCV 92.8 fl (80-96) 04/25/18 07:45 MCHC 33.3 g/dl (32.0-35.9) 04/25/18 07:45 RDW 16.1 % (11.9-15.9) H 04/25/18 07:45 Plt Count 242 K/MM3 (134-434) 04/25/18 07:45 MPV 8.1 fl (7.5-11.1) 04/25/18 07:45 CMP Sodium 143 mmol/L (136-145) 04/25/18 07:45 Potassium 3.9 mmol/L (3.5-5.1) 04/25/18 07:45 Chloride 104 mmol/L (98-107) 04/25/18 07:45 Carbon Dioxide 31 mmol/L (21-32) 04/25/18 07:45 Anion Gap 8 (8-16) 04/25/18 07:45 BUN 11 mg/dL (7-18) 04/25/18 07:45 Creatinine 0.4 mg/dL (0.7-1.3) L 04/25/18 07:45 Creat Clearance w eGFR > 60 (>60) 04/23/18 08:45 Random Glucose 133 mg/dL (74-106) H 04/25/18 07:45 Calcium 7.3 mg/dL (8.5-10.1) L 04/25/18 07:45 Total Bilirubin 0.2 mg/dL (0.2-1.0) 04/23/18 08:45 AST 88 U/L (15-37) H D 04/23/18 08:45 ALT 37 U/L (12-78) 04/23/18 08:45 Alkaline Phosphatase 247 U/L (45-117) H 04/23/18 08:45 Total Protein 5.4 g/dl (6.4-8.2) L 04/23/18 08:45 Albumin 2.1 g/dl (3.4-5.0) L 04/24/18 07:00 CARDIAC ENZYMES Troponin I < 0.02 ng/ml (0.00-0.05) 04/16/18 02:15 Current Medications Generic Name Dose Route Start Last Admin Trade Name Freq PRN Reason Stop Dose Admin Amino Acids 30 ml 04/21/18 17:30 04/25/18 09:55 Prosource No Carb Liquid Pkt PO 30 ml BID@0800,1730 YUKO Administration Docusate Sodium 100 mg 04/23/18 14:00 04/25/18 06:35 Colace Liquid - PO 100 mg TID YUKO Administration Enoxaparin Sodium 40 mg 04/19/18 10:00 04/25/18 09:55 Lovenox - SQ 40 mg DAILY YUKO Administration Fentanyl 1 patch 04/25/18 07:00 04/25/18 09:55 Duragesic 25mcg Patch - TD 05/02/18 06:48 1 patch Q72H YUKO Administration IV Flush 10 ml 04/23/18 16:59 Sheri-Cath Flush IVPUSH PRN PRN FLUSH Miscellaneous 1 each 04/25/18 07:00 Duragesic Patch Waste TD PRN PRN PAIN Oxycodone HCl 5 mg 04/24/18 11:05 04/25/18 09:54 Roxicodone - PO 5 mg Q6H PRN Administration PAIN LEVEL 6-10 Pantoprazole Sodium 40 mg 04/17/18 16:30 04/25/18 09:55 Protonix Iv IVPUSH 40 mg DAILY YUKO Administration Home Medications Medication Instructions Recorded Calcitriol [Rocaltrol -] 0.25 mcg PEG BID #60 bot 02/14/18 Calcium 500Mg/Vit-D 200 Units 2 tab PO BID #120 tab 02/14/18 [Os-You 500+D -] FENTANYL 25mcg PATCH [DURAGESIC 1 patch TD Q72H 7 Days #1 box MDD 1 02/14/18 25mcg PATCH -] ASSESSMENT AND PLAN: Patient is a 58 y/o male with h/o laryngeal cancer s/p laryngectomy, chemo and radiation, DVT s/p IVC filter , who presented with SOB and AMS and was found to have acute hypoxic respiratory failure and sepsis . # Acute hypoxic respiratory failure due to having bl PNA completed course of antibiotic Vanco and zosyn , patient is afebrile s/p cytology fluid tapping with no malignant cells but positive for mesothelial cells and Lymphocytes s/p sepsis., Chest tube in place, On IVF continue, cont mechanical vent. further management per Pulmonary. # h/o PE : has IVC filter. not on AC at home due to hematuria on AC . continue Px Lovenox # Transaminitis : likely due to sepsis : improved # Cytology fluid culture, No malignant cells but has mesotheilial cells with lymphocytes Patient is ok to go to [facility] for rehab. DVT Px: Lovenox
--- NOTE | 2018-04-25 14:50 | PN ---
Progress Note, Physician History of Present Illness: stable off of abx no issues chest tube out doing well - Current Medication List Current Medications: Active Medications Amino Acids (Prosource No Carb Liquid Pkt) 30 ml PO BID@0800,1730 [facility] Last Admin: 04/25/18 09:55 Dose: 30 ml Docusate Sodium (Colace Liquid -) 100 mg PO TID [facility] Last Admin: 04/25/18 06:35 Dose: 100 mg Enoxaparin Sodium (Lovenox -) 40 mg SQ DAILY [facility] Last Admin: 04/25/18 09:55 Dose: 40 mg Fentanyl (Duragesic 25mcg Patch -) 1 patch TD Q72H [facility] Stop: 05/02/18 06:48 Last Admin: 04/25/18 09:55 Dose: 1 patch IV Flush (Sheri-Cath Flush) 10 ml IVPUSH PRN PRN PRN Reason: FLUSH Miscellaneous (Duragesic Patch Waste) 1 each TD PRN PRN PRN Reason: PAIN Oxycodone HCl (Roxicodone -) 5 mg PO Q6H PRN PRN Reason: PAIN LEVEL 6-10 Last Admin: 04/25/18 09:54 Dose: 5 mg Pantoprazole Sodium (Protonix Iv) 40 mg IVPUSH DAILY [facility] Last Admin: 04/25/18 09:55 Dose: 40 mg - Objective Vital Signs: Vital Signs Temperature 98.2 F 04/25/18 06:50 Pulse Rate 237 H 04/25/18 11:54 Respiratory Rate 20 04/25/18 06:50 Blood Pressure 145/86 04/25/18 06:50 O2 Sat by Pulse Oximetry (%) 98 04/25/18 11:54 Constitutional: Yes: No Distress, Calm Cardiovascular: Yes: Regular Rate and Rhythm Respiratory: Yes: Other (trach) Gastrointestinal: Yes: Normal Bowel Sounds, Soft, Other (peg) Musculoskeletal: Yes: WNL Extremities: Yes: WNL Neurological: Yes: Alert, Oriented Psychiatric: Yes: Alert, Oriented Labs: CBC, BMP 04/25/18 07:45 04/25/18 07:45 INR, PTT INR 1.32 (0.82-1.09) H 04/18/18 06:00 Assessment/Plan Problem List - Problems (1) Sepsis Code(s): A41.9 - SEPSIS, UNSPECIFIED ORGANISM Qualifiers: Sepsis type: sepsis due to unspecified organism Qualified Code(s): A41.9 - Sepsis, unspecified organism (2) Pneumonia Code(s): J18.9 - PNEUMONIA, UNSPECIFIED ORGANISM Qualifiers: Pneumonia type: due to unspecified organism Laterality: unspecified laterality Lung location: unspecified part of lung Qualified Code(s): J18.9 - Pneumonia, unspecified organism Assessment/Plan 58 y.o. 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
--- NOTE | 2018-04-25 15:17 | PN ---
Progress Note (short form) - Note Progress Note: Patient seen and examined on the vent floor. Awake and interactive on Trach collar. Mesothelial cells noted on cytology. Likely sloughed cells from pleural space. We have no evidence of masses in the chest that would be suggestive of mesothelioma. CXR: No gross change in mild layered pleural effusions Intake & Output 04/22/18 04/23/18 04/24/18 04/25/18 23:59 23:59 23:59 23:59 Intake Total 2050 2165 950 935 Output Total 1655 1820 840 700 Balance 395 345 110 235 Last Vital Signs Temp Pulse Resp BP Pulse Ox 97.6 F 104 H 22 134/90 98 04/25/18 14:57 04/25/18 14:57 04/25/18 14:57 04/25/18 14:57 04/25/18 11:54 Active Medications Amino Acids (Prosource No Carb Liquid Pkt) 30 ml PO BID@0800,1730 [facility] Last Admin: 04/25/18 09:55 Dose: 30 ml Docusate Sodium (Colace Liquid -) 100 mg PO TID [facility] Last Admin: 04/25/18 06:35 Dose: 100 mg Enoxaparin Sodium (Lovenox -) 40 mg SQ DAILY [facility] Last Admin: 04/25/18 09:55 Dose: 40 mg Fentanyl (Duragesic 25mcg Patch -) 1 patch TD Q72H [facility] Stop: 05/02/18 06:48 Last Admin: 04/25/18 09:55 Dose: 1 patch IV Flush (Sheri-Cath Flush) 10 ml IVPUSH PRN PRN PRN Reason: FLUSH Miscellaneous (Duragesic Patch Waste) 1 each TD PRN PRN PRN Reason: PAIN Oxycodone HCl (Roxicodone -) 5 mg PO Q6H PRN PRN Reason: PAIN LEVEL 6-10 Last Admin: 04/25/18 09:54 Dose: 5 mg Pantoprazole Sodium (Protonix Iv) 40 mg IVPUSH DAILY [facility] Last Admin: 04/25/18 09:55 Dose: 40 mg GENERAL: Awake and alert on Trach collar HEENT: Trach intact, dry mucosa w/o exudates NECK: Tracheostomy site noted with no overt secretions LUNGS: Diminished Left breath sounds, scattered rhonchi on the right, Left pleural catheter HEART: Tachycardic with regular rhythm, normal S1 and S2 without murmur ABDOMEN: Soft, nontender, not distended, normoactive bowel sounds, no guarding, no rebound, no masses. No hepatomegaly MUSCULOSKELETAL: No CVA tenderness. UPPER EXTREMITIES: 2+ DP pulses, warm, well-perfused. No peripheral edema. NEUROLOGICAL: Cannot thoroughly assess due to agitation, confusion, nonverbal SKIN: Warm, dry, no rashes or lesions noted, No sacral decubiti appreciated Laboratory Results - last 24 hr 04/22/18 04/25/18 04/25/18 08:55 07:45 07:45 WBC 8.1 RBC 3.25 L Hgb 10.1 L D Hct 30.2 L MCV 92.8 MCH 30.9 MCHC 33.3 RDW 16.1 H Plt Count 242 MPV 8.1 Sodium 143 Potassium 3.9 Chloride 104 Carbon Dioxide 31 Anion Gap 8 BUN 11 Creatinine 0.4 L Random Glucose 133 H Calcium 7.3 L Phosphorus 2.8 Magnesium 1.9 PTH Intact 57 IMP: Acute on chronic respiratory failure Sepsis R/O aspiration PNA Neutropenia Malnutrition Laryngeal CA At this point do not suspect Mesothelioma Trach collar as tolerated Off ABX per ID VTE prophylaxis DNR /DNI Follow imaging as an outpatient Would likely benefit from short term rehab due to significant weight loss/ deconditioning No Pulmonary contraindication for D/C Dr Sims
--- NOTE | 2018-04-25 19:35 | PN ---
Progress Note (short form) - Note Progress Note: seen and examined. events noted. cytology - negative for malignant cytology. no distress. Constitutional: Yes: No Distress, Neck: Yes: Supple, Other (trach) Cardiovascular: Yes: Tachycardia Respiratory: Yes: decreased at bases Gastrointestinal: Yes: Normal Bowel Sounds, Soft, PEG+ Extremities: Yes: WNL Integumentary: Yes: WNL Last Vital Signs Temp Pulse Resp BP Pulse Ox 97.6 F 104 H 22 134/90 98 04/25/18 14:57 04/25/18 14:57 04/25/18 14:57 04/25/18 14:57 04/25/18 11:54 CBC, BMP 04/25/18 07:45 04/25/18 07:45 Current Medications Generic Name Dose Route Start Last Admin Trade Name Freq PRN Reason Stop Dose Admin Amino Acids 30 ml 04/21/18 17:30 04/25/18 17:36 Prosource No Carb Liquid Pkt PO 30 ml BID@0800,1730 YUKO Administration Docusate Sodium 100 mg 04/23/18 14:00 04/25/18 15:20 Colace Liquid - PO 100 mg TID YUKO Administration Enoxaparin Sodium 40 mg 04/19/18 10:00 04/25/18 09:55 Lovenox - SQ 40 mg DAILY YUKO Administration Escitalopram Oxalate 10 mg 04/26/18 10:00 Lexapro - GT DAILY YUKO Fentanyl 1 patch 04/25/18 07:00 04/25/18 09:55 Duragesic 25mcg Patch - TD 05/02/18 06:48 1 patch Q72H YUKO Administration IV Flush 10 ml 04/23/18 16:59 Sheri-Cath Flush IVPUSH PRN PRN FLUSH Miscellaneous 1 each 04/25/18 07:00 Duragesic Patch Waste TD PRN PRN PAIN Oxycodone HCl 5 mg 04/24/18 11:05 04/25/18 09:54 Roxicodone - PO 5 mg Q6H PRN Administration PAIN LEVEL 6-10 Pantoprazole Sodium 40 mg 04/17/18 16:30 04/25/18 09:55 Protonix Iv IVPUSH 40 mg DAILY YUKO Administration 58 y.o. 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 aspiration--s/p antibiotics Pleural Effusion s/p thoracentesis and chest tube drainage----awaiting pleural fluid cytology Metastatic laryngeal CA Hx of DVT s/p IVC filter history of laryngeal cancer in 07/31, when he presented with hoarseness of voice. s/p laryngectomy s/p trach/peg placement on August 2017. was on weekly carbo/taxol being treated at [place] ? s/p RT to spine and hip currenlty no pain ? last chemo 2 weeks ago pleural fluid cytology negative to f/u with his OP oncologist
[2018-04-25] MEDS ORDERED: PT OWN MED DRAWER 7, Y5N ONE (21:36)
[2018-04-25] MEDS: BISACODYL 10 MG SUPP.RECT RC SCH (21:59)
[2018-04-26] MEDS: DOCUSATE NA 100 MG/10 ML UNIT-DOSE CUPS PO SCH ×3 (06:52→22:00)
[2018-04-26] MEDS ORDERED: INSULIN (LEVEMIR) 100 UNITS/ML UNITS SQ ONE (07:02)
[2018-04-26] MEDS ORDERED: INSULIN (NOVOLOG) ASPART 100 UNITS/ML 10ML VIAL ONE (07:02)
[2018-04-26] MEDS: AMINO ACIDS/PROTEIN HYDROLYS 30 ML LIQUID.PKT PO SCH ×2 (08:00→17:48)
--- NOTE | 2018-04-26 09:02 | CON.PSL ---
Psychology Consult Consult Specialty:: Clinical Psychology Reason for Consultation:: Patient was seen for depression. History Provided By: Patient Limitations to Obtaining History: Intubated Current Medications: Active Medications Amino Acids (Prosource No Carb Liquid Pkt) 30 ml PO BID@0800,1730 [facility] Last Admin: 04/25/18 17:36 Dose: 30 ml Bisacodyl (Dulcolax Suppository -) 10 mg RC Q3D [facility] Last Admin: 04/25/18 21:59 Dose: 10 mg Docusate Sodium (Colace Liquid -) 100 mg PO TID [facility] Last Admin: 04/26/18 06:52 Dose: 100 mg Enoxaparin Sodium (Lovenox -) 40 mg SQ DAILY [facility] Last Admin: 04/25/18 09:55 Dose: 40 mg Escitalopram Oxalate (Lexapro -) 10 mg GT DAILY [facility] Fentanyl (Duragesic 25mcg Patch -) 1 patch TD Q72H [facility] Stop: 05/02/18 06:48 Last Admin: 04/25/18 09:55 Dose: 1 patch IV Flush (Sheri-Cath Flush) 10 ml IVPUSH PRN PRN PRN Reason: FLUSH Miscellaneous (Duragesic Patch Waste) 1 each TD PRN PRN PRN Reason: PAIN Oxycodone HCl (Roxicodone -) 5 mg PO Q6H PRN PRN Reason: PAIN LEVEL 6-10 Last Admin: 04/25/18 23:42 Dose: 5 mg Pantoprazole Sodium (Protonix Iv) 40 mg IVPUSH DAILY [facility] Last Admin: 04/25/18 09:55 Dose: 40 mg Allergies: Allergies Allergy/AdvReac Type Severity Reaction Status Date / Time No Known Allergies Allergy Verified 04/16/18 01:31 Does patient have pain?: Yes (He indicated pain ranging from his chest radiating to his lower extremeties) Pain Description: Non-Descriptive Hx Alcohol Use: No Hx Substance Use: No Hx Substance Use Treatment: No Current Medical Exam-Psy Orientation: Time, Person, Place Expressive: Other Receptive: Age Appropriate Comprehension of Spoken Words Hallucinations: Absent Thought Process: Intact Depression: Moderate Hopelessness: No Loss of Interest: No Anxiety Level: Moderate Danger to Self and Others: No Support System: Family Other Findings/Remarks: The patient was limited in terms of verbalizing his responses as he is intubated. However, we communicated by virtue of his use of hand signals in responding to questions. He is cooperative and was receptive to intervention for mood disorder and pain. Problem List - Problem (1) Depressive disorder due to separate medical condition Code(s): F06.30 - MOOD DISORDER DUE TO KNOWN PHYSIOLOGICAL CONDITION, UNSP (2) Somatic symptom disorder, persistent, moderate Code(s): F45.1 - UNDIFFERENTIATED SOMATOFORM DISORDER Assessment/Plan The patient will be seen for his mood disorder, anxiety and pain disorder. Relaxation exercise with hypnotic suggestions will be provided. If he agrees, a session with his spouse may be arranged as well.
[2018-04-26] MEDS: ENOXAPARIN NA (PORCINE) 40 MG/0.4 ML DISP.SYRIN SQ SCH (10:44)
[2018-04-26] MEDS: PANTOPRAZOLE SODIUM 40 MG VIAL IVPUSH SCH (10:44)
[2018-04-26] MEDS: ESCITALOPRAM OXALATE 10 MG TABLET (FP) GT SCH (10:45)
[2018-04-26] MEDS: oxyCODONE HCL 5 MG TABLET PO PRN ×2 (11:23→22:00)
--- NOTE | 2018-04-26 12:52 | PN ---
Progress Note (short form) - Note Progress Note: PULMONARY Awake on trach collar. No fevers recorded. Pleural fluid cytology without malignant cells. Vital Signs Period Temp Pulse Resp BP Sys/Shrestha Pulse Ox Last 24 Hr 97.3 F-99.1 F 96-105 18-22 123-140/74-90 93-98 Gen: vented, awake Heart: RRR Lung: decreased breath sounds at the bases Abd: soft, nontender Ext: no edema CBC, BMP 04/25/18 07:45 04/25/18 07:45 Active Medications Amino Acids (Prosource No Carb Liquid Pkt) 30 ml PO BID@0800,1730 [facility] Last Admin: 04/26/18 08:00 Dose: 30 ml Bisacodyl (Dulcolax Suppository -) 10 mg RC Q3D [facility] Last Admin: 04/25/18 21:59 Dose: 10 mg Docusate Sodium (Colace Liquid -) 100 mg PO TID [facility] Last Admin: 04/26/18 06:52 Dose: 100 mg Enoxaparin Sodium (Lovenox -) 40 mg SQ DAILY [facility] Last Admin: 04/26/18 10:44 Dose: 40 mg Escitalopram Oxalate (Lexapro -) 10 mg GT DAILY [facility] Last Admin: 04/26/18 10:45 Dose: 10 mg Fentanyl (Duragesic 25mcg Patch -) 1 patch TD Q72H [facility] Stop: 05/02/18 06:48 Last Admin: 04/25/18 09:55 Dose: 1 patch IV Flush (Sheri-Cath Flush) 10 ml IVPUSH PRN PRN PRN Reason: FLUSH Miscellaneous (Duragesic Patch Waste) 1 each TD PRN PRN PRN Reason: PAIN Oxycodone HCl (Roxicodone -) 5 mg PO Q6H PRN PRN Reason: PAIN LEVEL 6-10 Last Admin: 04/26/18 11:23 Dose: 5 mg Pantoprazole Sodium (Protonix Iv) 40 mg IVPUSH DAILY [facility] Last Admin: 04/26/18 10:44 Dose: 40 mg A/P Acute on Chronic Respiratory failure Pneumonia Pleural Effusion Sepsis Laryngeal CA - completed antibiotics - enteral feeds - trach collar as tolerated - DVT prophylaxis
--- NOTE | 2018-04-26 15:51 | PN ---
Progress Note, Physician History of Present Illness: no new issues patient stable - Current Medication List Current Medications: Active Medications Amino Acids (Prosource No Carb Liquid Pkt) 30 ml PO BID@0800,1730 [facility] Last Admin: 04/26/18 08:00 Dose: 30 ml Bisacodyl (Dulcolax Suppository -) 10 mg RC Q3D [facility] Last Admin: 04/25/18 21:59 Dose: 10 mg Docusate Sodium (Colace Liquid -) 100 mg PO TID [facility] Last Admin: 04/26/18 06:52 Dose: 100 mg Enoxaparin Sodium (Lovenox -) 40 mg SQ DAILY [facility] Last Admin: 04/26/18 10:44 Dose: 40 mg Escitalopram Oxalate (Lexapro -) 10 mg GT DAILY [facility] Last Admin: 04/26/18 10:45 Dose: 10 mg Fentanyl (Duragesic 25mcg Patch -) 1 patch TD Q72H [facility] Stop: 05/02/18 06:48 Last Admin: 04/25/18 09:55 Dose: 1 patch IV Flush (Sheri-Cath Flush) 10 ml IVPUSH PRN PRN PRN Reason: FLUSH Miscellaneous (Duragesic Patch Waste) 1 each TD PRN PRN PRN Reason: PAIN Oxycodone HCl (Roxicodone -) 5 mg PO Q6H PRN PRN Reason: PAIN LEVEL 6-10 Last Admin: 04/26/18 11:23 Dose: 5 mg Pantoprazole Sodium (Protonix Iv) 40 mg IVPUSH DAILY [facility] Last Admin: 04/26/18 10:44 Dose: 40 mg - Objective Vital Signs: Vital Signs Temperature 98.0 F 04/26/18 14:43 Pulse Rate 96 H 04/26/18 14:43 Respiratory Rate 18 04/26/18 14:43 Blood Pressure 148/72 04/26/18 14:43 O2 Sat by Pulse Oximetry (%) 93 L 04/26/18 11:23 Constitutional: Yes: No Distress, Calm Cardiovascular: Yes: Regular Rate and Rhythm Respiratory: Yes: Regular, CTA Bilaterally, Other (trach) Gastrointestinal: Yes: Normal Bowel Sounds, Soft, Other (peg) Musculoskeletal: Yes: WNL Extremities: Yes: WNL Neurological: Yes: Alert, Oriented Psychiatric: Yes: Alert, Oriented Labs: CBC, BMP 04/25/18 07:45 04/25/18 07:45 INR, PTT INR 1.32 (0.82-1.09) H 04/18/18 06:00 Assessment/Plan Problem List - Problems (1) Sepsis Code(s): A41.9 - SEPSIS, UNSPECIFIED ORGANISM Qualifiers: Sepsis type: sepsis due to unspecified organism Qualified Code(s): A41.9 - Sepsis, unspecified organism (2) Pneumonia Code(s): J18.9 - PNEUMONIA, UNSPECIFIED ORGANISM Qualifiers: Pneumonia type: due to unspecified organism Laterality: unspecified laterality Lung location: unspecified part of lung Qualified Code(s): J18.9 - Pneumonia, unspecified organism Assessment/Plan 58 y.o. 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
--- NOTE | 2018-04-26 19:43 | PN ---
Teaching Attending Note Name of Resident: Shay Breaux ATTENDING PHYSICIAN STATEMENT I saw and evaluated the patient. I reviewed the resident's note and discussed the case with the resident. I agree with the resident's findings and plan as documented. SUBJECTIVE: general pain , no SOB OBJECTIVE: NAD, trach, awake MMM, no JVD. Lungs : decreased breath sounds at L base . rales on both lung fileds Abd: soft, NL BS. PEG in . Ext: trace pedal edema on LE . no erythema . Assessment/Plan: Unfortunate 58 y/o gentleman with h/o laryngeal cancer s/p laryngectomy, chemo and radiation, DVT s/p IVC filter , who presented with SOB and AMS and was found to have acute hypoxic resp failure and sepsis . 1- Acute hypoxic resp failure ( PNA and Large L pleural effusion), and sepsis 2/ 2 b/l PNA .resolved . stable off ABx - s/p removal of CT - pleural fluid cytology neg for malignancy 2- h/o PE : has IVC filter. not on AC at home due to hematuria on AC . - for now Cont prophylactic Lovenox 3- Transaminitis : improved 4- Laryngeal cancer, sp larygnectomy. cont treatment with out pt onc 5- DNR . await placement
--- NOTE | 2018-04-26 22:03 | PN ---
Physical Exam: SUBJECTIVE: No events overnight. No complaints voiced. OBJECTIVE: Vital Signs Period Temp Pulse Resp BP Sys/Shrestha Pulse Ox Last 24 Hr 97.3 F-99.1 F 92-104 18-20 113-148/47-89 93-98 GENERAL: NAD, awake, alert, thin-appearing HEENT: SEVEN, sclera anicteric, dry mucosa, temporal wasting noted NECK: Tracheostomy site intact, suctioned copious amounts of whitish sputum from trach LUNGS: Improved aeration down to the bases. No accessory muscle use. Trach collar with blow-by oxygen HEART: RRR, normal S1 and S2 without murmur ABDOMEN: Soft, tense, nontender, not distended, normoactive bowel sounds, no guarding, no rebound, no masses. No hepatomegaly. No distention of bladder per percussion MUSCULOSKELETAL: No CVA tenderness. UPPER EXTREMITIES: 2+ DP pulses, warm, well-perfused. Ankle edema noted. SKIN: Warm, dry, no rashes or lesions noted Active Medications Generic Name Dose Route Start Last Admin Trade Name Freq PRN Reason Stop Dose Admin Amino Acids 30 ml 04/21/18 17:30 04/26/18 17:48 Prosource No Carb Liquid Pkt PO 30 ml BID@0800,1730 YUKO Administration Bisacodyl 10 mg 04/25/18 20:30 04/25/18 21:59 Dulcolax Suppository - RC 10 mg Q3D YUKO Administration Docusate Sodium 100 mg 04/23/18 14:00 04/26/18 22:00 Colace Liquid - PO 100 mg TID YUKO Administration Enoxaparin Sodium 40 mg 04/19/18 10:00 04/26/18 10:44 Lovenox - SQ 40 mg DAILY [facility]UKO Administration Escitalopram Oxalate 10 mg 04/26/18 10:00 04/26/18 10:45 Lexapro - GT 10 mg DAILY YUKO Administration Fentanyl 1 patch 04/25/18 07:00 04/25/18 09:55 Duragesic 25mcg Patch - TD 05/02/18 06:48 1 patch Q72H YUKO Administration IV Flush 10 ml 04/23/18 16:59 Sheri-Cath Flush IVPUSH PRN PRN FLUSH Miscellaneous 1 each 04/25/18 07:00 Duragesic Patch Waste TD PRN PRN PAIN Oxycodone HCl 5 mg 04/24/18 11:05 04/26/18 22:00 Roxicodone - PO 5 mg Q6H PRN Administration PAIN LEVEL 6-10 Pantoprazole Sodium 40 mg 04/17/18 16:30 04/26/18 10:44 Protonix Iv IVPUSH 40 mg DAILY [facility] Administration ASSESSMENT/PLAN: 1) Severe sepsis 2/2 to ? aspiration PNA --Resolving --ID on board: --Completed 5 days of IV ABX --Observing off antibiotics right now; has been afebrile --Tylenol 650mg GT q6h for fevers --Sputum culture normal sudhir 2) Acute hypoxic respiratory dysfunction --Maintain trach collar --Maintain SpO2 >90% --Aspiration precautions: HOB elevated --Reduced to Fentanyl 25mcg Patch --Oxycodone 5 GT PRN pain 6-10 --Pleural cytology sent tuesday showing no malignant cells; no further investigation to be done 3) Edema --Likely dependent edema due to lack of movement and positioning in bed 4) Abdominal tension --Likely 2/2 to ileus from pain medication --AXR showing possible ileus without obstructive patterning --Colace liquid on board --One small BM noted yesterday after suppository; Continue q3D 5) H/o PE --IVC filter previously placed --No AC due to prior hematuria and blood from meatus --Continue Lovenox 40mg qDaily 6) Neutropenia --RESOLVED FEN: Fluids: None Electrolyte abnormalities: Pseudohypocalcemia Nutrition: Continue Jevity feeds, add Prosources 30mg BID PPX: DVT - Lovenox 40mg qDaily Code Status: DNR Dispo: M/S monitoring; palliative on board; CECILIA sent to [facility] Case discussed with Dr. Rolando Breaux, DO - IM PGY-1 Visit type - Emergency Visit Emergency Visit: No - New Patient This patient is new to me today: No - Critical Care Critical Care patient: No
[2018-04-27] MEDS: DOCUSATE NA 100 MG/10 ML UNIT-DOSE CUPS PO SCH ×3 (07:00→22:24)
--- NOTE | 2018-04-27 09:42 | PN ---
Progress Note (short form) - Note Progress Note: The patient was administered hypnotic imagery to elevate mood and reduce pain. unfortunately, he did not appear to respond to the treatment. He also was suggested to use imagery of past pleasant experiences that may help him obtain some relief from his discomfort. Music therapy using audio tapes may of value as vibration from music has been demonstrated to offer healing and mood enhancement. Problem List - Problems (1) Depressive disorder due to separate medical condition Code(s): F06.30 - MOOD DISORDER DUE TO KNOWN PHYSIOLOGICAL CONDITION, UNSP (2) Somatic symptom disorder, persistent, moderate Code(s): F45.1 - UNDIFFERENTIATED SOMATOFORM DISORDER
--- NOTE | 2018-04-27 11:30 | PN ---
Progress Note, Physician History of Present Illness: stable no new issues - Current Medication List Current Medications: Active Medications Amino Acids (Prosource No Carb Liquid Pkt) 30 ml PO BID@0800,1730 [facility] Last Admin: 04/26/18 17:48 Dose: 30 ml Bisacodyl (Dulcolax Suppository -) 10 mg RC Q3D [facility] Last Admin: 04/25/18 21:59 Dose: 10 mg Docusate Sodium (Colace Liquid -) 100 mg PO TID [facility] Last Admin: 04/26/18 22:00 Dose: 100 mg Enoxaparin Sodium (Lovenox -) 40 mg SQ DAILY [facility] Last Admin: 04/26/18 10:44 Dose: 40 mg Escitalopram Oxalate (Lexapro -) 10 mg GT DAILY [facility] Last Admin: 04/26/18 10:45 Dose: 10 mg Fentanyl (Duragesic 25mcg Patch -) 1 patch TD Q72H [facility] Stop: 05/02/18 06:48 Last Admin: 04/25/18 09:55 Dose: 1 patch IV Flush (Sheri-Cath Flush) 10 ml IVPUSH PRN PRN PRN Reason: FLUSH Miscellaneous (Duragesic Patch Waste) 1 each TD PRN PRN PRN Reason: PAIN Pantoprazole Sodium (Protonix Iv) 40 mg IVPUSH DAILY [facility] Last Admin: 04/26/18 10:44 Dose: 40 mg - Objective Vital Signs: Vital Signs Temperature 98.2 F 04/27/18 09:22 Pulse Rate 96 H 04/27/18 09:22 Respiratory Rate 20 04/27/18 09:22 Blood Pressure 120/74 04/27/18 09:22 O2 Sat by Pulse Oximetry (%) 98 04/26/18 16:26 Constitutional: Yes: No Distress, Calm HENT: Yes: Other (trach in place) Cardiovascular: Yes: Regular Rate and Rhythm Respiratory: Yes: Regular, Other Gastrointestinal: Yes: Normal Bowel Sounds, Soft, Other (peg tube in place) Musculoskeletal: Yes: WNL Extremities: Yes: WNL Neurological: Yes: Alert, Oriented Psychiatric: Yes: Alert Labs: CBC, BMP 04/25/18 07:45 04/25/18 07:45 INR, PTT INR 1.32 (0.82-1.09) H 06/05/18 06:00 Assessment/Plan Problem List - Problems (1) Sepsis Code(s): A41.9 - SEPSIS, UNSPECIFIED ORGANISM Qualifiers: Sepsis type: sepsis due to unspecified organism Qualified Code(s): A41.9 - Sepsis, unspecified organism (2) Pneumonia Code(s): J18.9 - PNEUMONIA, UNSPECIFIED ORGANISM Qualifiers: Pneumonia type: due to unspecified organism Laterality: unspecified laterality Lung location: unspecified part of lung Qualified Code(s): J18.9 - Pneumonia, unspecified organism Assessment/Plan 58 y.o. 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
[2018-04-27] MEDS: ENOXAPARIN NA (PORCINE) 40 MG/0.4 ML DISP.SYRIN SQ SCH (11:35)
[2018-04-27] MEDS: AMINO ACIDS/PROTEIN HYDROLYS 30 ML LIQUID.PKT PO SCH ×2 (11:35→17:57)
[2018-04-27] MEDS: PANTOPRAZOLE SODIUM 40 MG VIAL IVPUSH SCH (11:36)
[2018-04-27] MEDS: ESCITALOPRAM OXALATE 10 MG TABLET (FP) GT SCH (11:36)
--- NOTE | 2018-04-27 12:07 | PN ---
Progress Note (short form) - Note Progress Note: Patient seen and examined on the vent floor. Awake and interactive in NAD on Trach collar. Intake & Output 04/24/18 04/25/18 04/26/18 04/27/18 23:59 23:59 23:59 23:59 Intake Total 950 1955 2100 Output Total 840 800 800 200 Balance 110 1155 1300 -200 Last Vital Signs Temp Pulse Resp BP Pulse Ox 98.2 F 96 H 20 120/74 98 04/27/18 09:22 04/27/18 09:22 04/27/18 09:22 04/27/18 09:22 04/26/18 16:26 Active Medications Amino Acids (Prosource No Carb Liquid Pkt) 30 ml PO BID@0800,1730 [facility] Last Admin: 04/27/18 11:35 Dose: 30 ml Bisacodyl (Dulcolax Suppository -) 10 mg RC Q3D [facility] Last Admin: 04/25/18 21:59 Dose: 10 mg Docusate Sodium (Colace Liquid -) 100 mg PO TID [facility] Last Admin: 04/26/18 22:00 Dose: 100 mg Enoxaparin Sodium (Lovenox -) 40 mg SQ DAILY [facility] Last Admin: 04/27/18 11:35 Dose: 40 mg Escitalopram Oxalate (Lexapro -) 10 mg GT DAILY [facility] Last Admin: 04/27/18 11:36 Dose: 10 mg Fentanyl (Duragesic 25mcg Patch -) 1 patch TD Q72H [facility] Stop: 05/02/18 06:48 Last Admin: 04/25/18 09:55 Dose: 1 patch IV Flush (Sheri-Cath Flush) 10 ml IVPUSH PRN PRN PRN Reason: FLUSH Miscellaneous (Duragesic Patch Waste) 1 each TD PRN PRN PRN Reason: PAIN Pantoprazole Sodium (Protonix Iv) 40 mg IVPUSH DAILY [facility] Last Admin: 04/27/18 11:36 Dose: 40 mg GENERAL: Awake and alert on Trach collar HEENT: Trach intact, dry mucosa w/o exudates NECK: Tracheostomy site noted with no overt secretions LUNGS: Diminished Left breath sounds, scattered rhonchi on the right, Left pleural catheter HEART: Tachycardic with regular rhythm, normal S1 and S2 without murmur ABDOMEN: Soft, nontender, not distended, normoactive bowel sounds, no guarding, no rebound, no masses. No hepatomegaly MUSCULOSKELETAL: No CVA tenderness. UPPER EXTREMITIES: 2+ DP pulses, warm, well-perfused. No peripheral edema. NEUROLOGICAL: Cannot thoroughly assess due to agitation, confusion, nonverbal SKIN: Warm, dry, no rashes or lesions noted, No sacral decubiti appreciated IMP: Acute on chronic respiratory failure Sepsis R/O aspiration PNA Neutropenia Malnutrition Laryngeal CA At this point do not suspect Mesothelioma Trach collar as tolerated Off ABX per ID VTE prophylaxis DNR /DNI Follow imaging as an outpatient Would likely benefit from short term rehab due to significant weight loss/ deconditioning No Pulmonary contraindication for D/C Dr Sims
--- NOTE | 2018-04-27 14:34 | PN ---
Physical Exam: SUBJECTIVE: No acute events. No new complaints. OBJECTIVE: Vital Signs Period Temp Pulse Resp BP Sys/Shrestha Pulse Ox Last 24 Hr 97.4 F-98.2 F 92-96 18-20 113-148/47-81 98 GENERAL: NAD, awake, alert, thin-appearing HEENT: SEVEN, sclera anicteric, dry mucosa, temporal wasting noted NECK: Tracheostomy site intact, No secretions noted today LUNGS: Improved aeration down to the bases. No accessory muscle use. Trach collar with blow-by oxygen HEART: RRR, normal S1 and S2 without murmur ABDOMEN: Soft, tense distension, nontender, normoactive bowel sounds, no guarding, no rebound, no masses. No hepatomegaly. MUSCULOSKELETAL: No CVA tenderness. UPPER EXTREMITIES: 2+ DP pulses, warm, well-perfused. Ankle edema noted. SKIN: Warm, dry, no rashes or lesions noted Active Medications Generic Name Dose Route Start Last Admin Trade Name Freq PRN Reason Stop Dose Admin Amino Acids 30 ml 04/21/18 17:30 04/27/18 11:35 Prosource No Carb Liquid Pkt PO 30 ml BID@0800,1730 [facility]UKO Administration Bisacodyl 10 mg 04/25/18 20:30 04/25/18 21:59 Dulcolax Suppository - RC 10 mg Q3D YUKO Administration Docusate Sodium 100 mg 04/23/18 14:00 04/26/18 22:00 Colace Liquid - PO 100 mg TID [facility]UKO Administration Enoxaparin Sodium 40 mg 04/19/18 10:00 04/27/18 11:35 Lovenox - SQ 40 mg DAILY [facility] Administration Escitalopram Oxalate 10 mg 04/26/18 10:00 04/27/18 11:36 Lexapro - GT 10 mg DAILY [facility] Administration Fentanyl 1 patch 04/25/18 07:00 04/25/18 09:55 Duragesic 25mcg Patch - TD 05/02/18 06:48 1 patch Q72H [facility]UKO Administration IV Flush 10 ml 04/23/18 16:59 Sheri-Cath Flush IVPUSH PRN PRN FLUSH Miscellaneous 1 each 04/25/18 07:00 Duragesic Patch Waste TD PRN PRN PAIN Pantoprazole Sodium 40 mg 04/17/18 16:30 04/27/18 11:36 Protonix Iv IVPUSH 40 mg DAILY [facility]UKO Administration Senna 2 tab 04/27/18 14:32 Senna - PO HS PRN CONSTIPATION ASSESSMENT/PLAN: 1) Abdominal Distention --Likely 2/2 to ileus from pain medication --Colace liquid on board --Senna 2 tabs HS --SSE enema ordered --Continue Dulcolax q3D 2) Severe sepsis 2/2 to ? aspiration PNA --Resolving --ID on board: --Completed 5 days of IV ABX --Observing off antibiotics right now; has been afebrile --Tylenol 650mg GT q6h for fevers --Sputum culture normal sudhir 3) Acute hypoxic respiratory dysfunction --Maintain trach collar --Maintain SpO2 >90% --Aspiration precautions: HOB elevated --Continue Fentanyl 25mcg Patch --Pleural cytology sent tuesday showing no malignant cells; no further investigation to be done 4) Edema --Likely dependent edema due to lack of movement and positioning in bed 5) H/o PE --IVC filter previously placed --No AC due to prior hematuria and blood from meatus --Continue Lovenox 40mg qDaily 6) Neutropenia --RESOLVED FEN: Fluids: None Electrolyte abnormalities: Pseudohypocalcemia Nutrition: Continue Jevity feeds, add Prosources 30mg BID PPX: DVT - Lovenox 40mg qDaily Code Status: DNR Dispo: Awaiting placement Case discussed with Dr. Rolando Breaux, DO - IM PGY-1 Visit type - Emergency Visit Emergency Visit: No - New Patient This patient is new to me today: No - Critical Care Critical Care patient: No
--- NOTE | 2018-04-27 15:12 | PN ---
Teaching Attending Note Name of Resident: Shay Breaux ATTENDING PHYSICIAN STATEMENT I saw and evaluated the patient. I reviewed the resident's note and discussed the case with the resident. I agree with the resident's findings and plan as documented. SUBJECTIVE: no pain , no fever or chills. very small BM yesterday OBJECTIVE: NAD, trach, awake MMM, no JVD. Lungs: decreased breath sounds at L base . rales on both lung fileds Abd:distended today. non tender . hyperactive BS . Ext:No edema or erythema Assessment/Plan: Unfortunate 58 y/o gentleman with h/o laryngeal cancer s/p laryngectomy, chemo and radiation, DVT s/p IVC filter , who presented with SOB and AMS and was found to have acute hypoxic resp failure and sepsis . 1- Acute hypoxic resp failure ( PNA and Large L pleural effusion), and sepsis 2/ 2 b/l PNA .resolved . stable off ABx - s/p removal of CT - pleural fluid cytology neg for malignancy 2- h/o PE : has IVC filter. not on AC at home due to hematuria on AC . - for now Cont prophylactic Lovenox 3- Abd distention :could be due to constipation . KUB obtained with no signs of obstruction on my read. follow final report aggressive bowel regimen 4- Laryngeal cancer, sp larygnectomy. cont treatment with out pt onc 5- DNR . await placement
[2018-04-27] MEDS ORDERED: KETOROLAC TROMETHAMINE 30 MG/1 ML VIAL IVPUSH ONE (20:00)
[2018-04-28] MEDS: DOCUSATE NA 100 MG/10 ML UNIT-DOSE CUPS PO SCH ×3 (06:17→21:52)
[2018-04-28] MEDS: fentaNYL 25mcg/hr PATCH.TD72 TD SCH (06:17)
[2018-04-28] MEDS: FENTANYL PATCH WASTE TD PRN (06:17)
[2018-04-28] MEDS: AMINO ACIDS/PROTEIN HYDROLYS 30 ML LIQUID.PKT PO SCH ×2 (08:00→17:16)
[2018-04-28 08:11] LABS: CHLORIDE 98 mmol/L (98-107); POTASSIUM 4.2 mmol/L (3.5-5.1); SODIUM 136 mmol/L (136-145)
[2018-04-28 08:29] LABS: ANION GAP 11 (8-16); BLOOD UREA NITROGEN 12 mg/dL (7-18); CALCIUM 7.9 mg/dL (8.5-10.1); CO2 27 mmol/L (21-32); CREATININE 0.4 mg/dL (0.7-1.3); GLUCOSE,RANDOM 104 mg/dL (74-106)
[2018-04-28] MEDS: ESCITALOPRAM OXALATE 10 MG TABLET (FP) GT SCH (11:05)
[2018-04-28] MEDS: PANTOPRAZOLE SODIUM 40 MG VIAL IVPUSH SCH (11:05)
[2018-04-28] MEDS: ENOXAPARIN NA (PORCINE) 40 MG/0.4 ML DISP.SYRIN SQ SCH (11:05)
--- NOTE | 2018-04-28 11:28 | PN ---
Physical Exam: SUBJECTIVE: Pt had BM's last night and yesterday. No other events and no complaints today. OBJECTIVE: Vital Signs Period Temp Pulse Resp BP Sys/Shrestha Pulse Ox Last 24 Hr 97.7 F-98.3 F 84-97 18-20 126-139/85-95 93-96 GENERAL: NAD, awake, alert, thin-appearing HEENT: SEVEN, sclera anicteric, dry mucosa, temporal wasting noted NECK: Tracheostomy site intact, No secretions noted today LUNGS: Improved aeration down to the bases. No accessory muscle use. Trach collar with blow-by oxygen HEART: RRR, normal S1 and S2 without murmur ABDOMEN: Soft, soft distension, nontender, normoactive bowel sounds, no guarding , no rebound, no masses. No hepatomegaly. MUSCULOSKELETAL: No CVA tenderness. UPPER EXTREMITIES: 2+ DP pulses, warm, well-perfused. Ankle edema noted. SKIN: Warm, dry, no rashes or lesions noted Laboratory Results - last 24 hr 04/28/18 07:05 Sodium 136 Potassium 4.2 Chloride 98 Carbon Dioxide 27 Anion Gap 11 BUN 12 Creatinine 0.4 L Random Glucose 104 D Calcium 7.9 L Active Medications Generic Name Dose Route Start Last Admin Trade Name Freq PRN Reason Stop Dose Admin Amino Acids 30 ml 04/21/18 17:30 04/28/18 08:00 Prosource No Carb Liquid Pkt PO 30 ml BID@0800,1730 YUKO Administration Bisacodyl 10 mg 04/25/18 20:30 04/25/18 21:59 Dulcolax Suppository - RC 10 mg Q3D YUKO Administration Docusate Sodium 100 mg 04/23/18 14:00 04/28/18 06:17 Colace Liquid - PO 100 mg TID YUKO Administration Enoxaparin Sodium 40 mg 04/19/18 10:00 04/28/18 11:05 Lovenox - SQ 40 mg DAILY YUKO Administration Escitalopram Oxalate 10 mg 04/26/18 10:00 04/28/18 11:05 Lexapro - GT 10 mg DAILY YUKO Administration Fentanyl 1 patch 04/25/18 07:00 04/28/18 06:17 Duragesic 25mcg Patch - TD 05/02/18 06:48 1 patch Q72H YUKO Administration IV Flush 10 ml 04/23/18 16:59 Sheri-Cath Flush IVPUSH PRN PRN FLUSH Miscellaneous 1 each 04/25/18 07:00 04/28/18 06:17 Duragesic Patch Waste TD 1 each PRN PRN Administration PAIN Pantoprazole Sodium 40 mg 04/17/18 16:30 04/28/18 11:05 Protonix Iv IVPUSH 40 mg DAILY YUKO Administration Senna 2 tab 04/27/18 22:00 Senna - PO HS PRN CONSTIPATION ASSESSMENT/PLAN: 1) Abdominal Distention --Likely 2/2 to ileus from pain medication --Colace liquid on board --Senna 2 tabs HS --Dulcolax suppository to be done today per regular schedule --SSE if needed --Continue Dulcolax q3D 2) Acute hypoxic respiratory dysfunction --Weaned off ventilator; tolerating trach collar at 40% --Continue to wean off high O2 percentage as tolerated --Maintain SpO2 >90% --Aspiration precautions: HOB elevated --Continue Fentanyl 25mcg Patch --Pleural cytology sent tuesday showing no malignant cells; no further investigation to be done 3) Severe sepsis 2/2 to aspiration PNA --Resolving --ID on board: --Completed 5 days of IV ABX --Observing off antibiotics right now; has been afebrile --Tylenol 650mg GT q6h for fevers --Sputum culture normal sudhir FEN: Fluids: None Electrolyte abnormalities: Pseudohypocalcemia Nutrition: Continue Jevity feeds, add Prosources 30mg BID PPX: DVT - Lovenox 40mg qDaily Code Status: DNR Dispo: Awaiting placement; continue to wean O2 requirements Case discussed with Dr. Rolando Breaux, DO - IM PGY-1 Visit type - Emergency Visit Emergency Visit: No - New Patient This patient is new to me today: No - Critical Care Critical Care patient: No
--- NOTE | 2018-04-28 12:26 | PN ---
Progress Note (short form) - Note Progress Note: PULMONARY OFFERS NO COMPLAINTS TRACH COLLAR O2 GENERAL: Awake and alert on Trach collar HEENT: Trach intact, dry mucosa w/o exudates LUNGS: Diminished Left breath sounds, scattered rhonchi on the right HEART: Tachycardic with regular rhythm, normal S1 and S2 without murmur ABDOMEN: Soft, nontender, NO EDEMA LABS/MEDS/NOTES REVIEWED IMP: Acute on chronic respiratory failure Sepsis aspiration PNA Neutropenia Malnutrition Laryngeal CA Trach collar as tolerated Off ABX per ID VTE prophylaxis DNR /DNI Follow imaging as an outpatient Would likely benefit from short term rehab due to significant weight loss/ deconditioning No Pulmonary contraindication for D/C R [facility]
--- NOTE | 2018-04-28 13:50 | PN ---
Progress Note, Physician History of Present Illness: stable no new issues patient doing well - Current Medication List Current Medications: Active Medications Amino Acids (Prosource No Carb Liquid Pkt) 30 ml PO BID@0800,1730 [facility] Last Admin: 04/28/18 08:00 Dose: 30 ml Bisacodyl (Dulcolax Suppository -) 10 mg RC Q3D [facility] Last Admin: 04/25/18 21:59 Dose: 10 mg Docusate Sodium (Colace Liquid -) 100 mg PO TID [facility] Last Admin: 04/28/18 06:17 Dose: 100 mg Enoxaparin Sodium (Lovenox -) 40 mg SQ DAILY [facility] Last Admin: 04/28/18 11:05 Dose: 40 mg Escitalopram Oxalate (Lexapro -) 10 mg GT DAILY [facility] Last Admin: 04/28/18 11:05 Dose: 10 mg Fentanyl (Duragesic 25mcg Patch -) 1 patch TD Q72H [facility] Stop: 05/02/18 06:48 Last Admin: 04/28/18 06:17 Dose: 1 patch IV Flush (Sheri-Cath Flush) 10 ml IVPUSH PRN PRN PRN Reason: FLUSH Miscellaneous (Duragesic Patch Waste) 1 each TD PRN PRN PRN Reason: PAIN Last Admin: 04/28/18 06:17 Dose: 1 each Pantoprazole Sodium (Protonix Iv) 40 mg IVPUSH DAILY [facility] Last Admin: 04/28/18 11:05 Dose: 40 mg Senna (Senna -) 2 tab PO HS PRN PRN Reason: CONSTIPATION - Objective Vital Signs: Vital Signs Temperature 97.9 F 04/28/18 10:00 Pulse Rate 90 04/28/18 10:00 Respiratory Rate 20 04/28/18 10:00 Blood Pressure 140/80 04/28/18 10:00 O2 Sat by Pulse Oximetry (%) 96 04/28/18 07:52 Constitutional: Yes: No Distress, Calm Cardiovascular: Yes: Regular Rate and Rhythm Respiratory: Yes: Regular, CTA Bilaterally, Other (trach in place) Gastrointestinal: Yes: Normal Bowel Sounds, Soft, Other (peg in place) Musculoskeletal: Yes: WNL Extremities: Yes: WNL Neurological: Yes: Alert Psychiatric: Yes: Alert, Oriented Labs: CBC, BMP 04/25/18 07:45 04/28/18 07:05 INR, PTT INR 1.32 (0.82-1.09) H 04/18/18 06:00 Assessment/Plan Problem List - Problems (1) Sepsis Code(s): A41.9 - SEPSIS, UNSPECIFIED ORGANISM Qualifiers: Sepsis type: sepsis due to unspecified organism Qualified Code(s): A41.9 - Sepsis, unspecified organism (2) Pneumonia Code(s): J18.9 - PNEUMONIA, UNSPECIFIED ORGANISM Qualifiers: Pneumonia type: due to unspecified organism Laterality: unspecified laterality Lung location: unspecified part of lung Qualified Code(s): J18.9 - Pneumonia, unspecified organism Assessment/Plan 58 y.o. 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
--- NOTE | 2018-04-28 18:23 | PN ---
Teaching Attending Note Name of Resident: Shay Breaux ATTENDING PHYSICIAN STATEMENT I saw and evaluated the patient. I reviewed the resident's note and discussed the case with the resident. I agree with the resident's findings and plan as documented. SUBJECTIVE: No fever or chills. had BM yesterday after enema. has generalized pain OBJECTIVE: NAD, trach, awake MMM, no JVD. Lungs: decreased breath sounds at bases. improved rales Abd:less distended today. non tender . NL BS . Ext:No edema or erythema Assessment/Plan: Unfortunate 58 y/o gentleman with h/o laryngeal cancer s/p laryngectomy, chemo and radiation, DVT s/p IVC filter , who presented with SOB and AMS and was found to have acute hypoxic resp failure and sepsis . 1- Acute hypoxic resp failure ( PNA and Large L pleural effusion), and sepsis 2/ 2 b/l PNA .resolved . stable off ABx 2- h/o PE : has IVC filter. not on AC at home due to hematuria on AC . - Cont prophylactic Lovenox 3- Abd distention :could be due to constipation . Abd is less distended . cont laxatives and add daily miralax 4- Laryngeal cancer, sp larygnectomy. cont treatment with out pt onc cont fentanyl patch 5- DNR . await placement
[2018-04-28] MEDS: BISACODYL 10 MG SUPP.RECT RC SCH (21:52)
[2018-04-29] MEDS: DOCUSATE NA 100 MG/10 ML UNIT-DOSE CUPS PO SCH ×3 (06:40→22:09)
[2018-04-29] MEDS ORDERED: SODIUM PHOSPHATE/NA BIPHOS 133 ML ENEMA PR ONE (08:06)
[2018-04-29] MEDS: ESCITALOPRAM OXALATE 10 MG TABLET (FP) GT SCH (09:21)
[2018-04-29] MEDS: AMINO ACIDS/PROTEIN HYDROLYS 30 ML LIQUID.PKT PO SCH ×2 (09:21→17:22)
[2018-04-29] MEDS: ENOXAPARIN NA (PORCINE) 40 MG/0.4 ML DISP.SYRIN SQ SCH (09:23)
[2018-04-29] MEDS: PANTOPRAZOLE SOD 40 MG SUSPENSION PACKET NGT SCH (09:23)
--- NOTE | 2018-04-29 09:34 | PN ---
Progress Note (short form) - Note Progress Note: PULMONARY OFFERS NO COMPLAINTS TRACH COLLAR O2 GENERAL: Awake and alert on Trach collar HEENT: Trach intact, dry mucosa w/o exudates LUNGS: Diminished Left breath sounds, scattered rhonchi on the right HEART: Tachycardic with regular rhythm, normal S1 and S2 without murmur ABDOMEN: Soft, nontender, NO EDEMA LABS/MEDS/NOTES REVIEWED IMP: Acute on chronic respiratory failure Sepsis aspiration PNA Neutropenia Malnutrition Laryngeal CA Trach collar as tolerated Off ABX per ID VTE prophylaxis DNR /DNI Follow imaging as an outpatient Would likely benefit from short term rehab due to significant weight loss/ deconditioning Awaiting placement Nahun ARGUETA MD
--- NOTE | 2018-04-29 10:20 | PN ---
Progress Note, Physician History of Present Illness: stable no new issues patient doing well patient constipation - Current Medication List Current Medications: Active Medications Amino Acids (Prosource No Carb Liquid Pkt) 30 ml PO BID@0800,1730 [facility] Last Admin: 04/29/18 09:21 Dose: 30 ml Bisacodyl (Dulcolax Suppository -) 10 mg RC Q3D [facility] Last Admin: 04/28/18 21:52 Dose: Not Given Docusate Sodium (Colace Liquid -) 100 mg PO TID [facility] Last Admin: 04/29/18 06:40 Dose: 100 mg Enoxaparin Sodium (Lovenox -) 40 mg SQ DAILY [facility] Last Admin: 04/29/18 09:23 Dose: 40 mg Escitalopram Oxalate (Lexapro -) 10 mg GT DAILY [facility] Last Admin: 04/29/18 09:21 Dose: 10 mg Fentanyl (Duragesic 25mcg Patch -) 1 patch TD Q72H [facility] Stop: 05/02/18 06:48 Last Admin: 04/28/18 06:17 Dose: 1 patch IV Flush (Sheri-Cath Flush) 10 ml IVPUSH PRN PRN PRN Reason: FLUSH Miscellaneous (Duragesic Patch Waste) 1 each TD PRN PRN PRN Reason: PAIN Last Admin: 04/28/18 06:17 Dose: 1 each Pantoprazole Sodium (Protonix Packets For Oral Suspension -) 40 mg NGT DAILY [facility] Last Admin: 04/29/18 09:23 Dose: 40 mg Polyethylene Glycol (Miralax (For Daily Use) -) 17 gm PO DAILY [facility] Senna (Senna -) 2 tab PO HS PRN PRN Reason: CONSTIPATION - Objective Vital Signs: Vital Signs Temperature 98 F 04/29/18 06:00 Pulse Rate 90 04/29/18 08:19 Respiratory Rate 20 04/29/18 06:00 Blood Pressure 128/85 04/29/18 06:00 O2 Sat by Pulse Oximetry (%) 93 L 04/29/18 08:19 Constitutional: Yes: No Distress, Calm Cardiovascular: Yes: Regular Rate and Rhythm Respiratory: Yes: Regular, Poor Air Entry Gastrointestinal: Yes: Normal Bowel Sounds, Soft Musculoskeletal: Yes: WNL Extremities: Yes: WNL Neurological: Yes: Alert, Oriented Psychiatric: Yes: Alert, Oriented Labs: CBC, BMP 04/25/18 07:45 04/28/18 07:05 INR, PTT INR 1.32 (0.82-1.09) H 04/18/18 06:00 Assessment/Plan Problem List - Problems (1) Sepsis Code(s): A41.9 - SEPSIS, UNSPECIFIED ORGANISM Qualifiers: Sepsis type: sepsis due to unspecified organism Qualified Code(s): A41.9 - Sepsis, unspecified organism (2) Pneumonia Code(s): J18.9 - PNEUMONIA, UNSPECIFIED ORGANISM Qualifiers: Pneumonia type: due to unspecified organism Laterality: unspecified laterality Lung location: unspecified part of lung Qualified Code(s): J18.9 - Pneumonia, unspecified organism Assessment/Plan 58 y.o. 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
--- NOTE | 2018-04-29 12:33 | PN ---
Physical Exam: SUBJECTIVE: Patient seen and examined. lying in bed had tracheostomy with oxygen denies chest pain, sob, nausea, vomiting. Denies burning mictration. nurse reports didnt have bowel movement yesterday OBJECTIVE: Vital Signs Period Temp Pulse Resp BP Sys/Shrestha Pulse Ox Last 24 Hr 97.8 F-98.3 F 90-94 20-24 128-132/85-95 93-96 GENERAL: The patient is awake, alert, and fully oriented, in no acute distress. HEAD: Normal with no signs of trauma. NECK: Trachea midline, full range of motion, supple. LUNGS: Breath sounds equal, corse breathing b/l no accessory muscle use. HEART: Regular rate and rhythm, S1, S2 normal . ABDOMEN: Soft, nontender, tense better than yesterday , normoactive bowel sounds , no guarding, no rebound, resonant to percuss, peg tube in situ EXTREMITIES: 2+ pulses, warm, well-perfused, no edema. PSYCH: Normal mood, normal affect. SKIN: Warm, dry, Active Medications Generic Name Dose Route Start Last Admin Trade Name Freq PRN Reason Stop Dose Admin Acetaminophen 650 mg 04/29/18 13:00 Tylenol - PO 04/29/18 13:01 ONCE ONE Amino Acids 30 ml 04/21/18 17:30 04/29/18 09:21 Prosource No Carb Liquid Pkt PO 30 ml BID@0800,1730 [facility] Administration Bisacodyl 10 mg 04/25/18 20:30 04/28/18 21:52 Dulcolax Suppository - RC Not Given Q3D [facility] Docusate Sodium 100 mg 04/23/18 14:00 04/29/18 06:40 Colace Liquid - PO 100 mg TID [facility] Administration Enoxaparin Sodium 40 mg 04/19/18 10:00 04/29/18 09:23 Lovenox - SQ 40 mg DAILY [facility] Administration Escitalopram Oxalate 10 mg 04/26/18 10:00 04/29/18 09:21 Lexapro - GT 10 mg DAILY [facility] Administration Fentanyl 1 patch 04/25/18 07:00 04/28/18 06:17 Duragesic 25mcg Patch - TD 05/02/18 06:48 1 patch Q72H [facility] Administration IV Flush 10 ml 04/23/18 16:59 Sheri-Cath Flush IVPUSH PRN PRN FLUSH Miscellaneous 1 each 04/25/18 07:00 04/28/18 06:17 Duragesic Patch Waste TD 1 each PRN PRN Administration PAIN Pantoprazole Sodium 40 mg 04/29/18 10:00 04/29/18 09:23 Protonix Packets For Oral Suspension - NGT 40 mg DAILY [facility] Administration Polyethylene Glycol 17 gm 04/30/18 10:00 Miralax (For Daily Use) - PO DAILY [facility] Senna 2 tab 04/27/18 22:00 Senna - PO HS PRN CONSTIPATION ASSESSMENT/PLAN: 2) Acute hypoxic respiratory dysfunction improved on tracheostomy with 40 % o2 keep spo2 > 90 chest physical therapy bid pleural fluid cytology no malignent cells. keep head ed elevated. 2) Abdominal Distention --Likely 2/2 to ileus from pain medication, xray from 04/27 reviewed --Colace liquid on board --Senna 2 tabs HS --Continue Dulcolax q3D -- will give enema today. -- started on standing miralex 3) Severe sepsis 2/2 to aspiration PNA resolved FEN: Fluids: None Electrolyte abnormalities: Pseudohypocalcemia Nutrition: Continue Jevity feeds, add Prosources 30mg BID PPX: DVT - Lovenox 40mg qDaily Code Status: DNR Dispo: Awaiting placement; continue to wean O2 requirements Visit type - Emergency Visit Emergency Visit: Yes ED Registration Date: 04/16/18 Care time: The patient presented to the Emergency Department on the above date and was hospitalized for further evaluation of their emergent condition. - New Patient This patient is new to me today: No - Critical Care Critical Care patient: No
[2018-04-29] MEDS ORDERED: ACETAMINOPHEN 325 MG TABLET (FP) PO ONE (13:00)
--- NOTE | 2018-04-29 14:38 | PN ---
Teaching Attending Note Name of Resident: Lewis Ferguson ATTENDING PHYSICIAN STATEMENT I saw and evaluated the patient. I reviewed the resident's note and discussed the case with the resident. I agree with the resident's findings and plan as documented. SUBJECTIVE: denies pain. not in mood for participation today OBJECTIVE: NAD, trach, awake MMM, no JVD. Lungs: decreased breath sounds at bases. improved rales Abd: less distended today. non tender. NL BS . Ext:No edema or erythema Assessment/Plan: Unfortunate 58 y/o gentleman with h/o laryngeal cancer s/p laryngectomy, chemo and radiation, DVT s/p IVC filter , who presented with SOB and AMS and was found to have acute hypoxic resp failure and sepsis . 1- Acute hypoxic resp failure ( PNA and Large L pleural effusion), and sepsis 2/ 2 b/l PNA .resolved . stable off ABx 2- h/o PE : has IVC filter. not on AC at home due to hematuria on AC . - Cont prophylactic Lovenox 3- Abd distention :likely due to constipation. Improved cont bowel regimenand give an enema today 4- Laryngeal cancer, sp larygnectomy. cont treatment with out pt onc. cont fentanyl patch 5- DNR . await placement
[2018-04-29] MEDS: PORTA CATH FLUSH 10 ML IVPUSH PRN (15:34)
[2018-04-29] MEDS: MAG HYDROX/ALH/SMC/DPHA/LIDO 240 ML MOUTHWASH MM SCH (22:09)
[2018-04-29] MEDS: SENNOSIDES 8.6MG TABLET (FP) PO PRN (22:09)
[2018-04-30] MEDS: MAG HYDROX/ALH/SMC/DPHA/LIDO 240 ML MOUTHWASH MM SCH ×4 (01:03→18:30)
[2018-04-30] MEDS: DOCUSATE NA 100 MG/10 ML UNIT-DOSE CUPS PO SCH ×3 (05:31→21:18)
[2018-04-30 06:43] LABS: ANION GAP 8 (8-16); BLOOD UREA NITROGEN 13 mg/dL (7-18); CALCIUM 7.7 mg/dL (8.5-10.1); CHLORIDE 96 mmol/L (98-107); CO2 29 mmol/L (21-32); CREATININE 0.4 mg/dL (0.7-1.3); GLUCOSE,RANDOM 92 mg/dL (74-106); POTASSIUM 4.2 mmol/L (3.5-5.1); SODIUM 133 mmol/L (136-145)
[2018-04-30 07:05] LABS: HEMATOCRIT 27.1 % (35.4-49); HEMOGLOBIN 9.3 GM/dL (11.7-16.9); MCH 31.5 pg (25.7-33.7); MCHC 34.3 g/dl (32.0-35.9); MEAN CELL VOLUME 91.9 fl (80-96); MEAN PLT VOLUME 8.1 fl (7.5-11.1); PLATELET COUNT 246 K/MM3 (134-434); RBC 2.95 M/mm3 (4.00-5.60); RDW 15.7 % (11.9-15.9); WHITE BLOOD COUNT 5.5 K/mm3 (4.0-10.0)
[2018-04-30] MEDS: AMINO ACIDS/PROTEIN HYDROLYS 30 ML LIQUID.PKT PO SCH ×2 (08:30→18:36)
[2018-04-30] MEDS: ESCITALOPRAM OXALATE 10 MG TABLET (FP) GT SCH (10:00)
[2018-04-30] MEDS: POLYETHYLENE GLYCOL 3350 119 GM BTL PO SCH (10:35)
[2018-04-30] MEDS: PANTOPRAZOLE SOD 40 MG SUSPENSION PACKET NGT SCH (10:35)
--- NOTE | 2018-04-30 11:19 | PN ---
Progress Note (short form) - Note Progress Note: PULMONARY OFFERS NO COMPLAINTS TRACH COLLAR O2 GENERAL: Awake and alert on Trach collar HEENT: Trach intact, dry mucosa w/o exudates LUNGS: Diminished Left breath sounds, scattered rhonchi on the right HEART: Tachycardic with regular rhythm, normal S1 and S2 without murmur ABDOMEN: Soft, nontender, NO EDEMA LABS/MEDS/NOTES REVIEWED IMP: Acute on chronic respiratory failure Sepsis aspiration PNA/pleural effusion Neutropenia Malnutrition Laryngeal CA Trach collar as tolerated Off ABX per ID VTE prophylaxis DNR /DNI Follow imaging as an outpatient Would likely benefit from short term rehab due to significant weight loss/ deconditioning Awaiting placement Nahun ARGUETA MD
[2018-04-30] MEDS: ENOXAPARIN NA (PORCINE) 40 MG/0.4 ML DISP.SYRIN SQ SCH (11:21)
--- NOTE | 2018-04-30 11:30 | PN ---
Progress Note, Physician History of Present Illness: no new issues patient stable no complaints - Current Medication List Current Medications: Active Medications Amino Acids (Prosource No Carb Liquid Pkt) 30 ml PO BID@0800,1730 [facility] Last Admin: 04/29/18 17:22 Dose: 30 ml Bisacodyl (Dulcolax Suppository -) 10 mg RC Q3D [facility] Last Admin: 04/28/18 21:52 Dose: Not Given Docusate Sodium (Colace Liquid -) 100 mg PO TID [facility] Last Admin: 04/30/18 05:31 Dose: Not Given Enoxaparin Sodium (Lovenox -) 40 mg SQ DAILY [facility] Last Admin: 04/30/18 11:21 Dose: 40 mg Escitalopram Oxalate (Lexapro -) 10 mg GT DAILY [facility] Last Admin: 04/29/18 09:21 Dose: 10 mg Fentanyl (Duragesic 25mcg Patch -) 1 patch TD Q72H [facility] Stop: 05/02/18 06:48 Last Admin: 04/28/18 06:17 Dose: 1 patch IV Flush (Sheri-Cath Flush) 10 ml IVPUSH PRN PRN PRN Reason: FLUSH Last Admin: 04/29/18 15:34 Dose: 10 ml Lidocaine/Aluminum/Magnesium/Simeth (Magic Mouthwash *Sjr Formula* -) 5 ml MM Q6HPO [facility] Last Admin: 04/30/18 11:22 Dose: Not Given Miscellaneous (Duragesic Patch Waste) 1 each TD PRN PRN PRN Reason: PAIN Last Admin: 04/28/18 06:17 Dose: 1 each Pantoprazole Sodium (Protonix Packets For Oral Suspension -) 40 mg NGT DAILY [facility] Last Admin: 04/29/18 09:23 Dose: 40 mg Polyethylene Glycol (Miralax (For Daily Use) -) 17 gm PO DAILY [facility] Senna (Senna -) 2 tab PO HS PRN PRN Reason: CONSTIPATION Last Admin: 04/29/18 22:09 Dose: 2 tab - Objective Vital Signs: Vital Signs Temperature 98.2 F 04/30/18 10:06 Pulse Rate 88 04/30/18 10:06 Respiratory Rate 18 04/30/18 10:06 Blood Pressure 122/88 04/30/18 10:06 O2 Sat by Pulse Oximetry (%) 95 04/29/18 21:50 Constitutional: Yes: No Distress, Calm Cardiovascular: Yes: Regular Rate and Rhythm Respiratory: Yes: Regular, CTA Bilaterally, Other (trach) Gastrointestinal: Yes: Normal Bowel Sounds, Soft Musculoskeletal: Yes: WNL Extremities: Yes: WNL Neurological: Yes: Alert, Oriented Psychiatric: Yes: Alert Labs: CBC, BMP 04/30/18 05:15 04/30/18 05:15 INR, PTT INR 1.32 (0.82-1.09) H 04/18/18 06:00 Assessment/Plan Problem List - Problems (1) Sepsis Code(s): A41.9 - SEPSIS, UNSPECIFIED ORGANISM Qualifiers: Sepsis type: sepsis due to unspecified organism Qualified Code(s): A41.9 - Sepsis, unspecified organism (2) Pneumonia Code(s): J18.9 - PNEUMONIA, UNSPECIFIED ORGANISM Qualifiers: Pneumonia type: due to unspecified organism Laterality: unspecified laterality Lung location: unspecified part of lung Qualified Code(s): J18.9 - Pneumonia, unspecified organism Assessment/Plan 58 y.o. 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
--- NOTE | 2018-04-30 19:23 | PN ---
Progress Note (short form) - Note Progress Note: Subjective: No fever or chills. No abd pain . GT fell off Objective: Vital Signs: Last Vital Signs Temp Pulse Resp BP Pulse Ox 97.9 F 90 22 129/82 95 04/30/18 17:22 04/30/18 17:22 04/30/18 17:22 04/30/18 17:22 04/30/18 11:42 Laboratory Results - last 24 hr 04/30/18 04/30/18 05:15 05:15 WBC 5.5 D RBC 2.95 L Hgb 9.3 L Hct 27.1 L MCV 91.9 MCH 31.5 MCHC 34.3 RDW 15.7 Plt Count 246 MPV 8.1 Sodium 133 L Potassium 4.2 Chloride 96 L Carbon Dioxide 29 Anion Gap 8 BUN 13 Creatinine 0.4 L Creat Clearance w eGFR > 60 Random Glucose 92 Calcium 7.7 L Physical Exam: NAD, trach, awake MMM, no JVD. Lungs: decreased breath sounds at bases. improved rales Abd: less distended today. non tender. NL BS . tom in place of GT Ext:No edema or erythema Assessment/Plan: Unfortunate 58 y/o gentleman with h/o laryngeal cancer s/p laryngectomy, chemo and radiation, DVT s/p IVC filter , who presented with SOB and AMS and was found to have acute hypoxic resp failure and sepsis . 1- Acute hypoxic resp failure ( PNA and Large L pleural effusion), and sepsis 2/ 2 b/l PNA .resolved . stable off ABx 2- h/o PE: has IVC filter. not on AC at home due to hematuria on AC . - Cont prophylactic Lovenox 3- PEG tube: tom inplace. hod TF call paced t Dr. Becerra. will resume TF when exchanged 4- Abd distention :likely due to constipation. Improved cont bowel 5- Laryngeal cancer, s/p larygnectomy. cont treatment with out pt onc. cont fentanyl patch 5- DNR . await placement Visit type - Emergency Visit Emergency Visit: Yes ED Registration Date: 04/16/18 Care time: The patient presented to the Emergency Department on the above date and was hospitalized for further evaluation of their emergent condition. - New Patient This patient is new to me today: No - Critical Care Critical Care patient: No
--- NOTE | 2018-04-30 20:39 | PN ---
Progress Note, Physician History of Present Illness: The G-tube was dislodged overnight. Forde was placed by the pt's nurse to maintain the track. - Current Medication List Current Medications: Active Medications Amino Acids (Prosource No Carb Liquid Pkt) 30 ml PO BID@0800,1730 [facility] Last Admin: 04/30/18 18:36 Dose: Not Given Bisacodyl (Dulcolax Suppository -) 10 mg RC Q3D [facility] Last Admin: 04/28/18 21:52 Dose: Not Given Docusate Sodium (Colace Liquid -) 100 mg PO TID [facility] Last Admin: 04/30/18 14:00 Dose: Not Given Enoxaparin Sodium (Lovenox -) 40 mg SQ DAILY [facility] Last Admin: 04/30/18 11:21 Dose: 40 mg Escitalopram Oxalate (Lexapro -) 10 mg GT DAILY [facility] Last Admin: 04/30/18 10:00 Dose: Not Given Fentanyl (Duragesic 25mcg Patch -) 1 patch TD Q72H [facility] Stop: 05/02/18 06:48 Last Admin: 04/28/18 06:17 Dose: 1 patch IV Flush (Sheri-Cath Flush) 10 ml IVPUSH PRN PRN PRN Reason: FLUSH Last Admin: 04/29/18 15:34 Dose: 10 ml Lidocaine/Aluminum/Magnesium/Simeth (Magic Mouthwash *Sjr Formula* -) 5 ml MM Q6HPO [facility] Last Admin: 04/30/18 18:30 Dose: Not Given Miscellaneous (Duragesic Patch Waste) 1 each TD PRN PRN PRN Reason: PAIN Last Admin: 04/28/18 06:17 Dose: 1 each Pantoprazole Sodium (Protonix Packets For Oral Suspension -) 40 mg NGT DAILY [facility] Last Admin: 04/30/18 10:35 Dose: Not Given Polyethylene Glycol (Miralax (For Daily Use) -) 17 gm PO DAILY [facility] Last Admin: 04/30/18 10:35 Dose: Not Given Senna (Senna -) 2 tab PO HS PRN PRN Reason: CONSTIPATION Last Admin: 04/29/18 22:09 Dose: 2 tab - Objective Vital Signs: Vital Signs Temperature 97.9 F 04/30/18 17:22 Pulse Rate 90 06/17/18 17:22 Respiratory Rate 22 04/30/18 17:22 Blood Pressure 129/82 04/30/18 17:22 O2 Sat by Pulse Oximetry (%) 95 04/30/18 11:42 Constitutional: Yes: No Distress, Calm Gastrointestinal: Yes: Normal Bowel Sounds, Soft. No: Melena, Rectal Bleeding, Tenderness, Vomiting Labs: CBC, BMP 04/30/18 05:15 04/30/18 05:15 INR, PTT INR 1.32 (0.82-1.09) H 04/18/18 06:00 Problem List - Problems (1) Attention to gastrostomy tube Code(s): Z43.1 - ENCOUNTER FOR ATTENTION TO GASTROSTOMY (2) Encounter for attention to gastrostomy Code(s): Z43.1 - ENCOUNTER FOR ATTENTION TO GASTROSTOMY Assessment/Plan The original PEG appeared to be intact and thus was reinserted w/o any immediate complications. Do not use the G-tube until confirmed to be in the stomach by Gastrografin study.
[2018-05-01] MEDS: MAG HYDROX/ALH/SMC/DPHA/LIDO 240 ML MOUTHWASH MM SCH ×4 (00:08→18:32)
[2018-05-01] MEDS: DOCUSATE NA 100 MG/10 ML UNIT-DOSE CUPS PO SCH ×3 (05:50→22:01)
[2018-05-01] MEDS: fentaNYL 25mcg/hr PATCH.TD72 TD SCH (06:33)
[2018-05-01] MEDS: FENTANYL PATCH WASTE TD PRN (06:44)
[2018-05-01] MEDS ORDERED: ALBUTEROL SO4 2.5/IPRATROPIUM 0.5 INH SOL 3 ML VIAL.NEB. NEB ONE (07:23)
[2018-05-01] MEDS: ENOXAPARIN NA (PORCINE) 40 MG/0.4 ML DISP.SYRIN SQ SCH (10:18)
[2018-05-01] MEDS: ESCITALOPRAM OXALATE 10 MG TABLET (FP) GT SCH (10:19)
[2018-05-01] MEDS: AMINO ACIDS/PROTEIN HYDROLYS 30 ML LIQUID.PKT PO SCH ×2 (10:19→19:00)
[2018-05-01] MEDS: PANTOPRAZOLE SOD 40 MG SUSPENSION PACKET NGT SCH (10:19)
[2018-05-01] MEDS: POLYETHYLENE GLYCOL 3350 119 GM BTL PO SCH (10:19)
--- NOTE | 2018-05-01 12:32 | PN ---
Progress Note, Physician History of Present Illness: stable no new issues - Current Medication List Current Medications: Active Medications Amino Acids (Prosource No Carb Liquid Pkt) 30 ml PO BID@0800,1730 [facility] Last Admin: 05/01/18 10:19 Dose: 30 ml Bisacodyl (Dulcolax Suppository -) 10 mg RC Q3D [facility] Last Admin: 04/28/18 21:52 Dose: Not Given Docusate Sodium (Colace Liquid -) 100 mg PO TID [facility] Last Admin: 05/01/18 05:50 Dose: Not Given Enoxaparin Sodium (Lovenox -) 40 mg SQ DAILY [facility] Last Admin: 05/01/18 10:18 Dose: 40 mg Escitalopram Oxalate (Lexapro -) 10 mg GT DAILY [facility] Last Admin: 05/01/18 10:19 Dose: 10 mg Fentanyl (Duragesic 25mcg Patch -) 1 patch TD Q72H [facility] Stop: 05/02/18 06:48 Last Admin: 05/01/18 06:33 Dose: 1 patch IV Flush (Sheri-Cath Flush) 10 ml IVPUSH PRN PRN PRN Reason: FLUSH Last Admin: 04/29/18 15:34 Dose: 10 ml Lidocaine/Aluminum/Magnesium/Simeth (Magic Mouthwash *Sjr Formula* -) 5 ml MM Q6HPO [facility] Last Admin: 05/01/18 05:51 Dose: Not Given Miscellaneous (Duragesic Patch Waste) 1 each TD PRN PRN PRN Reason: PAIN Last Admin: 05/01/18 06:44 Dose: 1 each Pantoprazole Sodium (Protonix Packets For Oral Suspension -) 40 mg NGT DAILY [facility] Last Admin: 05/01/18 10:19 Dose: 40 mg Polyethylene Glycol (Miralax (For Daily Use) -) 17 gm PO DAILY [facility] Last Admin: 05/01/18 10:19 Dose: 17 gm Senna (Senna -) 2 tab PO HS PRN PRN Reason: CONSTIPATION Last Admin: 04/29/18 22:09 Dose: 2 tab - Objective Vital Signs: Vital Signs Temperature 98.1 F 05/01/18 06:00 Pulse Rate 87 05/01/18 06:00 Respiratory Rate 18 05/01/18 06:00 Blood Pressure 127/84 05/01/18 06:00 O2 Sat by Pulse Oximetry (%) 95 04/30/18 21:54 Constitutional: Yes: No Distress, Calm Neck: Yes: Other (trach) Cardiovascular: Yes: Regular Rate and Rhythm Respiratory: Yes: Regular, CTA Bilaterally Gastrointestinal: Yes: Normal Bowel Sounds, Soft, Other (peg tube in place) Musculoskeletal: Yes: WNL Extremities: Yes: WNL Neurological: Yes: Alert, Oriented Psychiatric: Yes: Alert, Oriented Labs: CBC, BMP 04/30/18 05:15 04/30/18 05:15 INR, PTT INR 1.32 (0.82-1.09) H 04/18/18 06:00 Assessment/Plan Problem List - Problems (1) Sepsis Code(s): A41.9 - SEPSIS, UNSPECIFIED ORGANISM Qualifiers: Sepsis type: sepsis due to unspecified organism Qualified Code(s): A41.9 - Sepsis, unspecified organism (2) Pneumonia Code(s): J18.9 - PNEUMONIA, UNSPECIFIED ORGANISM Qualifiers: Pneumonia type: due to unspecified organism Laterality: unspecified laterality Lung location: unspecified part of lung Qualified Code(s): J18.9 - Pneumonia, unspecified organism Assessment/Plan 58 y.o. 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
--- NOTE | 2018-05-01 13:22 | PN ---
Progress Note, Physician History of Present Illness: PULMONARY ALERT,FEELING BETTER,COMFORTABLE,-RESP DISTRESS,ON TRACH COLLAR - Current Medication List Current Medications: Active Medications Amino Acids (Prosource No Carb Liquid Pkt) 30 ml PO BID@0800,1730 [facility] Last Admin: 05/01/18 10:19 Dose: 30 ml Bisacodyl (Dulcolax Suppository -) 10 mg RC Q3D [facility] Last Admin: 04/28/18 21:52 Dose: Not Given Docusate Sodium (Colace Liquid -) 100 mg PO TID [facility] Last Admin: 05/01/18 05:50 Dose: Not Given Enoxaparin Sodium (Lovenox -) 40 mg SQ DAILY [facility] Last Admin: 05/01/18 10:18 Dose: 40 mg Escitalopram Oxalate (Lexapro -) 10 mg GT DAILY [facility] Last Admin: 05/01/18 10:19 Dose: 10 mg Fentanyl (Duragesic 25mcg Patch -) 1 patch TD Q72H [facility] Stop: 05/02/18 06:48 Last Admin: 05/01/18 06:33 Dose: 1 patch IV Flush (Sheri-Cath Flush) 10 ml IVPUSH PRN PRN PRN Reason: FLUSH Last Admin: 04/29/18 15:34 Dose: 10 ml Lidocaine/Aluminum/Magnesium/Simeth (Magic Mouthwash *Sjr Formula* -) 5 ml MM Q6HPO [facility] Last Admin: 05/01/18 05:51 Dose: Not Given Miscellaneous (Duragesic Patch Waste) 1 each TD PRN PRN PRN Reason: PAIN Last Admin: 05/01/18 06:44 Dose: 1 each Pantoprazole Sodium (Protonix Packets For Oral Suspension -) 40 mg NGT DAILY [facility] Last Admin: 05/01/18 10:19 Dose: 40 mg Polyethylene Glycol (Miralax (For Daily Use) -) 17 gm PO DAILY [facility] Last Admin: 05/01/18 10:19 Dose: 17 gm Senna (Senna -) 2 tab PO HS PRN PRN Reason: CONSTIPATION Last Admin: 04/29/18 22:09 Dose: 2 tab - Objective Vital Signs: Vital Signs Temperature 98.1 F 05/01/18 06:00 Pulse Rate 87 05/01/18 06:00 Respiratory Rate 18 05/01/18 06:00 Blood Pressure 127/84 05/01/18 06:00 O2 Sat by Pulse Oximetry (%) 95 04/30/18 21:54 Constitutional: Yes: Calm, Thin Eyes: Yes: WNL HENT: Yes: WNL Neck: Yes: Supple (TRACH) Cardiovascular: Yes: Regular Rate and Rhythm, S1, S2 Respiratory: Yes: Rhonchi (FEW SCATTERED RHONCHI) Gastrointestinal: Yes: Normal Bowel Sounds, Soft Extremities: Yes: WNL Edema: No Labs: CBC, BMP Problem List - Problems (1) Sepsis Code(s): A41.9 - SEPSIS, UNSPECIFIED ORGANISM (2) Neutropenia Code(s): D70.9 - NEUTROPENIA, UNSPECIFIED (3) Pneumonia Code(s): J18.9 - PNEUMONIA, UNSPECIFIED ORGANISM Qualifiers: Pneumonia type: due to unspecified organism Laterality: unspecified laterality Lung location: unspecified part of lung Qualified Code(s): J18.9 - Pneumonia, unspecified organism (4) Sepsis Code(s): A41.9 - SEPSIS, UNSPECIFIED ORGANISM Qualifiers: Sepsis type: sepsis due to unspecified organism Qualified Code(s): A41.9 - Sepsis, unspecified organism (5) Respiratory failure Code(s): J96.90 - RESPIRATORY FAILURE, UNSP, UNSP W HYPOXIA OR HYPERCAPNIA (7) Acute hypoxemic respiratory failure Code(s): J96.01 - ACUTE RESPIRATORY FAILURE WITH HYPOXIA Assessment/Plan Problem List - Problems (1) Sepsis Code(s): A41.9 - SEPSIS, UNSPECIFIED ORGANISM (2) Neutropenia Code(s): D70.9 - NEUTROPENIA, UNSPECIFIED (3) Pneumonia Code(s): J18.9 - PNEUMONIA, UNSPECIFIED ORGANISM Qualifiers: Pneumonia type: due to unspecified organism Laterality: unspecified laterality Lung location: unspecified part of lung Qualified Code(s): J18.9 - Pneumonia, unspecified organism (4) Sepsis Code(s): A41.9 - SEPSIS, UNSPECIFIED ORGANISM Qualifiers: Sepsis type: sepsis due to unspecified organism Qualified Code(s): A41.9 - Sepsis, unspecified organism (5) Respiratory failure Code(s): J96.90 - RESPIRATORY FAILURE, UNSP, UNSP W HYPOXIA OR HYPERCAPNIA (7) Acute hypoxemic respiratory failure Code(s): J96.01 - ACUTE RESPIRATORY FAILURE WITH HYPOXIA Assessment/Plan IMP: Acute on chronic respiratory failure improved Sepsis improved Neutropenia resolved Malnutrition Laryngeal CA trach collar VTE prophylaxis DNR /DNI tracheal suctioning inhaled bronchodilators DR RAMIREZ
--- NOTE | 2018-05-01 16:18 | PN ---
Teaching Attending Note Name of Resident: Shay Breaux ATTENDING PHYSICIAN STATEMENT I saw and evaluated the patient. I reviewed the resident's note and discussed the case with the resident. I agree with the resident's findings and plan as documented. SUBJECTIVE: no pain , no complaints , no events OBJECTIVE: NAD, trach, awake MMM, no JVD. Lungs: decreased breath sounds at bases. improved rales Abd: less distended today. non tender. NL BS . GT in LUQ Ext:No edema or erythema Assessment/Plan: Unfortunate 58 y/o gentleman with h/o laryngeal cancer s/p laryngectomy, chemo and radiation, DVT s/p IVC filter , who presented with SOB and AMS and was found to have acute hypoxic resp failure and sepsis . 1- Acute hypoxic resp failure ( PNA and Large L pleural effusion), and sepsis 2/ 2 b/l PNA .resolved . stable off ABx 2- h/o PE: has IVC filter. not on AC at home due to hematuria on AC . - Cont prophylactic Lovenox 3- Abd distention :likely due to constipation. Improved cont bowel 4- Laryngeal cancer, s/p larygnectomy. cont treatment with out pt onc. cont fentanyl patch 5- DNR . await placement
[2018-05-01] MEDS: BISACODYL 10 MG SUPP.RECT RC SCH (21:00)
--- NOTE | 2018-05-01 21:14 | PN ---
Physical Exam: SUBJECTIVE: No complaints today. Pt seems more depressed than last week. OBJECTIVE: Vital Signs Period Temp Pulse Resp BP Sys/Shrestha Pulse Ox Last 24 Hr 97.7 F-98.2 F 86-88 16-18 127-153/73-86 95 GENERAL: NAD, awake, alert, thin-appearing HEENT: SEVEN, sclera anicteric, dry mucosa, temporal wasting noted NECK: Tracheostomy site intact without secretions LUNGS: Improved aeration down to the bases. No accessory muscle use. Trach collar with blow-by oxygen HEART: RRR, normal S1 and S2 without murmur ABDOMEN: Soft, Nondistended!!, nontender, normoactive bowel sounds, no guarding , no rebound, no masses. No hepatomegaly. MUSCULOSKELETAL: No CVA tenderness. UPPER EXTREMITIES: 2+ DP pulses, warm, well-perfused. no edema Psych: Depressed mood, aversion to making eye contact today SKIN: Warm, dry, no rashes or lesions noted Laboratory Results - last 24 hr 04/16/18 11:20 Pleural pH 8.4 Active Medications Generic Name Dose Route Start Last Admin Trade Name Freq PRN Reason Stop Dose Admin Albuterol/Ipratropium 1 amp 05/01/18 13:23 Duoneb - NEB Q4H PRN SHORTNESS OF BREATH Amino Acids 30 ml 04/21/18 17:30 05/01/18 19:00 Prosource No Carb Liquid Pkt PO 30 ml BID@0800,1730 [facility] Administration Bisacodyl 10 mg 04/25/18 20:30 04/28/18 21:52 Dulcolax Suppository - RC Not Given Q3D [facility] Docusate Sodium 100 mg 04/23/18 14:00 05/01/18 14:00 Colace Liquid - PO Not Given TID [facility] Enoxaparin Sodium 40 mg 04/19/18 10:00 05/01/18 10:18 Lovenox - SQ 40 mg DAILY [facility] Administration Escitalopram Oxalate 10 mg 04/26/18 10:00 05/01/18 10:19 Lexapro - GT 10 mg DAILY [facility] Administration Fentanyl 1 patch 04/25/18 07:00 05/01/18 06:33 Duragesic 25mcg Patch - TD 05/02/18 06:48 1 patch Q72H [facility] Administration IV Flush 10 ml 04/23/18 16:59 04/29/18 15:34 Sheri-Cath Flush IVPUSH 10 ml PRN PRN Administration FLUSH Lidocaine/Aluminum/Magnesium/Simeth 5 ml 04/29/18 18:00 05/01/18 18:32 Magic Mouthwash *Sjr Formula* - MM Not Given Q6HPO [facility] Miscellaneous 1 each 04/25/18 07:00 05/01/18 06:44 Duragesic Patch Waste TD 1 each PRN PRN Administration PAIN Pantoprazole Sodium 40 mg 04/29/18 10:00 05/01/18 10:19 Protonix Packets For Oral Suspension - NGT 40 mg DAILY [facility] Administration Polyethylene Glycol 17 gm 04/30/18 10:00 05/01/18 10:19 Miralax (For Daily Use) - PO 17 gm DAILY [facility] Administration Senna 2 tab 04/27/18 22:00 04/29/18 22:09 Senna - PO 2 tab HS PRN Administration CONSTIPATION ASSESSMENT/PLAN: 1) Abdominal Distention --Resolved --Likely 2/2 to ileus from pain medication --Colace liquid on board --Senna 2 tabs HS --Dulcolax suppository q3Day --SSE as needed 2) Acute hypoxic respiratory dysfunction --Weaned off ventilator; tolerating trach collar at 40% --Continue to wean off high O2 percentage as tolerated --Maintain SpO2 >90% --Aspiration precautions: HOB elevated --Continue Fentanyl 25mcg Patch --Pleural cytology sent tuesday showing no malignant cells; no further investigation to be done 3) Severe sepsis 2/2 to aspiration PNA --Resolving --ID on board: --Completed 5 days of IV ABX --Observing off antibiotics right now; has been afebrile --Tylenol 650mg GT q6h for fevers --Sputum culture normal sudhir 4) Depressed mood --Continue Lexapro 10mg GT daily FEN: Fluids: None Electrolyte abnormalities: Pseudohypocalcemia Nutrition: Continue Jevity feeds, add Prosources 30mg BID PPX: DVT - Lovenox 40mg qDaily Code Status: DNR Dispo: Awaiting placement; continue to wean O2 requirements Case discussed with Dr. Rolando Breaux, DO - IM PGY-1 Visit type - Emergency Visit Emergency Visit: No - New Patient This patient is new to me today: No - Critical Care Critical Care patient: No
[2018-05-01] MEDS: ALBUTEROL SO4 2.5/IPRATROPIUM 0.5 INH SOL 3 ML VIAL.NEB. NEB PRN (21:30)
[2018-05-02] MEDS: MAG HYDROX/ALH/SMC/DPHA/LIDO 240 ML MOUTHWASH MM SCH ×5 (00:30→23:51)
[2018-05-02] MEDS: DOCUSATE NA 100 MG/10 ML UNIT-DOSE CUPS PO SCH ×3 (06:18→21:39)
[2018-05-02] MEDS: AMINO ACIDS/PROTEIN HYDROLYS 30 ML LIQUID.PKT PO SCH ×2 (08:10→17:58)
[2018-05-02 08:21] LABS: CHLORIDE 96 mmol/L (98-107); POTASSIUM 4.1 mmol/L (3.5-5.1); SODIUM 133 mmol/L (136-145)
[2018-05-02 08:26] LABS: ANION GAP 10 (8-16); BLOOD UREA NITROGEN 12 mg/dL (7-18); CALCIUM 7.5 mg/dL (8.5-10.1); CO2 27 mmol/L (21-32); CREATININE 0.5 mg/dL (0.7-1.3); GLUCOSE,RANDOM 137 mg/dL (74-106)
[2018-05-02] MEDS: ENOXAPARIN NA (PORCINE) 40 MG/0.4 ML DISP.SYRIN SQ SCH (09:18)
[2018-05-02] MEDS: ESCITALOPRAM OXALATE 10 MG TABLET (FP) GT SCH (09:18)
[2018-05-02] MEDS: oxyCODONE HCL 5 MG TABLET PO PRN (09:18)
[2018-05-02] MEDS: POLYETHYLENE GLYCOL 3350 119 GM BTL PO SCH (09:19)
[2018-05-02] MEDS: PANTOPRAZOLE SOD 40 MG SUSPENSION PACKET NGT SCH (09:19)
--- NOTE | 2018-05-02 10:54 | PN ---
Progress Note (short form) - Note Progress Note: The patient was seen briefly. He was alert and responsive to my questions. He agreed to the suggestion of playing music - perhaps relaxation themes or meditation for comfort. It is recommended that he is supplied with the tape player and a CD for this purpose. Problem List - Problems (1) Depressive disorder due to separate medical condition Code(s): F06.30 - MOOD DISORDER DUE TO KNOWN PHYSIOLOGICAL CONDITION, UNSP (2) Somatic symptom disorder, persistent, moderate Code(s): F45.1 - UNDIFFERENTIATED SOMATOFORM DISORDER
--- NOTE | 2018-05-02 11:24 | PN ---
Progress Note (short form) - Note Progress Note: PULMONARY Awake on trach collar. No fevers recorded. Requiring 40% fiO2. Vital Signs Period Temp Pulse Resp BP Sys/Shrestha Pulse Ox Last 24 Hr 97.7 F-98.4 F 84-93 16-20 102-153/67-86 95-98 Gen: awake on trach collar Heart: RRR Lung: scattered rhonchi Abd: soft, nontender Ext: no edema CBC, BMP 04/30/18 05:15 05/02/18 06:45 Active Medications Albuterol/Ipratropium (Duoneb -) 1 amp NEB Q4H PRN PRN Reason: SHORTNESS OF BREATH Last Admin: 05/01/18 21:30 Dose: 1 amp Amino Acids (Prosource No Carb Liquid Pkt) 30 ml PO BID@0800,1730 [facility] Last Admin: 05/02/18 08:10 Dose: 30 ml Bisacodyl (Dulcolax Suppository -) 10 mg RC Q3D [facility] Last Admin: 05/01/18 21:00 Dose: Not Given Docusate Sodium (Colace Liquid -) 100 mg PO TID [facility] Last Admin: 05/02/18 06:18 Dose: Not Given Enoxaparin Sodium (Lovenox -) 40 mg SQ DAILY [facility] Last Admin: 05/02/18 09:18 Dose: 40 mg Escitalopram Oxalate (Lexapro -) 10 mg GT DAILY [facility] Last Admin: 05/02/18 09:18 Dose: 10 mg IV Flush (Sheri-Cath Flush) 10 ml IVPUSH PRN PRN PRN Reason: FLUSH Last Admin: 04/29/18 15:34 Dose: 10 ml Lidocaine/Aluminum/Magnesium/Simeth (Magic Mouthwash *Sjr Formula* -) 5 ml MM Q6HPO [facility] Last Admin: 05/02/18 06:18 Dose: Not Given Miscellaneous (Duragesic Patch Waste) 1 each TD PRN PRN PRN Reason: PAIN Last Admin: 05/01/18 06:44 Dose: 1 each Oxycodone HCl (Roxicodone -) 5 mg PO Q8H PRN PRN Reason: pain 7-10 Last Admin: 05/02/18 09:18 Dose: 5 mg Pantoprazole Sodium (Protonix Packets For Oral Suspension -) 40 mg NGT DAILY [facility] Last Admin: 05/02/18 09:19 Dose: 40 mg Polyethylene Glycol (Miralax (For Daily Use) -) 17 gm PO DAILY [facility] Last Admin: 05/02/18 09:19 Dose: 17 gm Senna (Senna -) 2 tab PO HS PRN PRN Reason: CONSTIPATION Last Admin: 04/29/18 22:09 Dose: 2 tab A/P Acute on Chronic Respiratory failure Pneumonia Pleural Effusion LV Diastolic Dysfunction Laryngeal CA - completed antibiotics - enteral feeds - trach collar as tolerated - DVT prophylaxis - d/c planning in progress
[2018-05-02] MEDS: fentaNYL 50mcg/hr PATCH.TD72 TD SCH (14:29)
[2018-05-02] MEDS: FENTANYL PATCH WASTE TD PRN (14:31)
--- NOTE | 2018-05-02 16:01 | PN ---
Progress Note, Physician History of Present Illness: awake on trach collar - Current Medication List Current Medications: Active Medications Albuterol/Ipratropium (Duoneb -) 1 amp NEB Q4H PRN PRN Reason: SHORTNESS OF BREATH Last Admin: 05/01/18 21:30 Dose: 1 amp Amino Acids (Prosource No Carb Liquid Pkt) 30 ml PO BID@0800,1730 [facility] Last Admin: 05/02/18 08:10 Dose: 30 ml Bisacodyl (Dulcolax Suppository -) 10 mg RC Q3D [facility] Last Admin: 05/01/18 21:00 Dose: Not Given Docusate Sodium (Colace Liquid -) 100 mg PO TID [facility] Last Admin: 05/02/18 13:08 Dose: 100 mg Enoxaparin Sodium (Lovenox -) 40 mg SQ DAILY [facility] Last Admin: 05/02/18 09:18 Dose: 40 mg Escitalopram Oxalate (Lexapro -) 10 mg GT DAILY [facility] Last Admin: 05/02/18 09:18 Dose: 10 mg Fentanyl (Duragesic 50mcg Patch -) 1 patch TD Q72H [facility] Stop: 05/09/18 13:56 Last Admin: 05/02/18 14:29 Dose: 1 patch IV Flush (Sheri-Cath Flush) 10 ml IVPUSH PRN PRN PRN Reason: FLUSH Last Admin: 04/29/18 15:34 Dose: 10 ml Lidocaine/Aluminum/Magnesium/Simeth (Magic Mouthwash *Sjr Formula* -) 5 ml MM Q6HPO [facility] Last Admin: 05/02/18 12:11 Dose: Not Given Miscellaneous (Duragesic Patch Waste) 1 each TD PRN PRN PRN Reason: PAIN Oxycodone HCl (Roxicodone -) 5 mg PO Q8H PRN PRN Reason: pain 7-10 Last Admin: 05/02/18 09:18 Dose: 5 mg Pantoprazole Sodium (Protonix Packets For Oral Suspension -) 40 mg NGT DAILY [facility] Last Admin: 05/02/18 09:19 Dose: 40 mg Polyethylene Glycol (Miralax (For Daily Use) -) 17 gm PO DAILY [facility] Last Admin: 05/02/18 09:19 Dose: 17 gm Senna (Senna -) 2 tab PO HS PRN PRN Reason: CONSTIPATION Last Admin: 04/29/18 22:09 Dose: 2 tab - Objective Vital Signs: Vital Signs Temperature 98.4 F 05/02/18 10:28 Pulse Rate 90 05/02/18 11:25 Respiratory Rate 18 05/02/18 10:28 Blood Pressure 128/76 05/02/18 10:28 O2 Sat by Pulse Oximetry (%) 94 L 05/02/18 11:25 Constitutional: Yes: No Distress, Calm Cardiovascular: Yes: Regular Rate and Rhythm Respiratory: Yes: Other (on trach collar) Gastrointestinal: Yes: Normal Bowel Sounds, Soft Musculoskeletal: Yes: WNL Extremities: Yes: WNL Integumentary: Yes: WNL Neurological: Yes: Alert, Oriented Psychiatric: Yes: Alert, Oriented Labs: CBC, BMP 04/30/18 05:15 05/02/18 06:45 INR, PTT INR 1.32 (0.82-1.09) H 04/18/18 06:00 Assessment/Plan Problem List - Problems (1) Sepsis Code(s): A41.9 - SEPSIS, UNSPECIFIED ORGANISM Qualifiers: Sepsis type: sepsis due to unspecified organism Qualified Code(s): A41.9 - Sepsis, unspecified organism (2) Pneumonia Code(s): J18.9 - PNEUMONIA, UNSPECIFIED ORGANISM Qualifiers: Pneumonia type: due to unspecified organism Laterality: unspecified laterality Lung location: unspecified part of lung Qualified Code(s): J18.9 - Pneumonia, unspecified organism Assessment/Plan 58 y.o. male with PMH of laryngeal CA with metastasis to bone reportedly s/p chemotherapy 2 wks ago presenting with fever/rigors, AMS, respiratory distress Severe Sepsis Acute Respiratory failure s/p tracheostomy/ on MV PNA Pleural Effusion Metastatic laryngeal CA Elevated lactic acid, Fever, leukopenia Hx of DVT s/p IVC filter continue to watch off of abx rest continue current mgmt physio
--- NOTE | 2018-05-02 18:39 | PN ---
Teaching Attending Note Name of Resident: Shay Breaux ATTENDING PHYSICIAN STATEMENT I saw and evaluated the patient. I reviewed the resident's note and discussed the case with the resident. I agree with the resident's findings and plan as documented. SUBJECTIVE: No fever or chills. has pain in all his body from chin to feet . per RN, complained of some occasional jerks in arms . OBJECTIVE: NAD, trach, awake . No jerks were noted on my exam . MMM, no JVD. Lungs: decreased breath sounds at bases. b/l rales Abd: less distended today. non tender. NL BS. GT in LUQ Ext: No edema or erythema. Assessment/Plan: Unfortunate 58 y/o gentleman with h/o laryngeal cancer s/p laryngectomy, chemo and radiation, DVT s/p IVC filter , who presented with SOB and AMS and was found to have acute hypoxic resp failure and sepsis . 1- Acute hypoxic resp failure ( PNA and Large L pleural effusion), and sepsis 2/ 2 b/l PNA .resolved . stable off ABx 2- H/o PE: has IVC filter. not on AC at home due to hematuria on AC . - Cont prophylactic Lovenox. 3-occasional extremity jerks. witnessed by and other providers . ? meds effect . only new medicine added was lexapro which can rarely cause tardive dyskinesia . will d/w and suggest dc lexapro ( decrease to 5 x 2 days then stop ) 4- Abd distention :likely due to constipation. Improved cont bowel 5- Laryngeal cancer, s/p larygnectomy. cont treatment with out pt onc. cont fentanyl patch ( increase dose due to continued pain ) 5- DNR . await placement
--- NOTE | 2018-05-02 21:24 | PN ---
Physical Exam: SUBJECTIVE: This morning pt noted to have leaking around GTube site. Dr. Becerra informed and feeds restarted with resolution. Otherwise pt's notes that the pt began to have odd twitching movements at intermittent times in b/l santiago with facial twitching accompanying. Otherwise pt is complaining of all- over pain. OBJECTIVE: Vital Signs Period Temp Pulse Resp BP Sys/Shrestha Pulse Ox Last 24 Hr 97.8 F-98.4 F 84-93 18-20 102-128/67-78 94-95 GENERAL: NAD, awake, alert, thin-appearing HEENT: SEVEN, sclera anicteric, dry mucosa, temporal wasting noted NECK: Tracheostomy site intact without secretions LUNGS: Improved aeration down to the bases. No accessory muscle use. Trach collar with blow-by oxygen HEART: RRR, normal S1 and S2 without murmur ABDOMEN: Soft, nondistended, nontender, normoactive bowel sounds, no guarding, no rebound, no masses. No hepatomegaly. MUSCULOSKELETAL: No CVA tenderness. UPPER EXTREMITIES: 2+ DP pulses, warm, well-perfused. no edema Psych: Depressed mood SKIN: Warm, dry, no rashes or lesions noted Laboratory Results - last 24 hr 05/02/18 06:45 Sodium 133 L Potassium 4.1 Chloride 96 L Carbon Dioxide 27 Anion Gap 10 BUN 12 Creatinine 0.5 L D Creat Clearance w eGFR > 60 Random Glucose 137 H D Calcium 7.5 L Active Medications Generic Name Dose Route Start Last Admin Trade Name Freq PRN Reason Stop Dose Admin Albuterol/Ipratropium 1 amp 05/01/18 13:23 05/01/18 21:30 Duoneb - NEB 1 amp Q4H PRN Administration SHORTNESS OF BREATH Amino Acids 30 ml 04/21/18 17:30 05/02/18 17:58 Prosource No Carb Liquid Pkt PO 30 ml BID@0800,1730 [facility] Administration Bisacodyl 10 mg 04/25/18 20:30 05/01/18 21:00 Dulcolax Suppository - RC Not Given Q3D [facility] Docusate Sodium 100 mg 04/23/18 14:00 05/02/18 13:08 Colace Liquid - PO 100 mg TID [facility] Administration Enoxaparin Sodium 40 mg 04/19/18 10:00 05/02/18 09:18 Lovenox - SQ 40 mg DAILY [facility] Administration Escitalopram Oxalate 5 mg 05/03/18 10:00 Lexapro - PO 05/04/18 10:01 DAILY [facility] Fentanyl 1 patch 05/02/18 14:00 05/02/18 14:29 Duragesic 50mcg Patch - TD 05/09/18 13:56 1 patch Q72H [facility] Administration IV Flush 10 ml 04/23/18 16:59 04/29/18 15:34 Sheri-Cath Flush IVPUSH 10 ml PRN PRN Administration FLUSH Lidocaine/Aluminum/Magnesium/Simeth 5 ml 04/29/18 18:00 05/02/18 18:28 Magic Mouthwash *Sjr Formula* - MM Not Given Q6HPO [facility] Miscellaneous 1 each 05/02/18 13:55 Duragesic Patch Waste TD PRN PRN PAIN Oxycodone HCl 5 mg 05/02/18 08:23 05/02/18 09:18 Roxicodone - PO 5 mg Q8H PRN Administration pain 7-10 Pantoprazole Sodium 40 mg 04/29/18 10:00 05/02/18 09:19 Protonix Packets For Oral Suspension - NGT 40 mg DAILY [facility] Administration Polyethylene Glycol 17 gm 04/30/18 10:00 05/02/18 09:19 Miralax (For Daily Use) - PO 17 gm DAILY [facility] Administration Senna 2 tab 04/27/18 22:00 04/29/18 22:09 Senna - PO 2 tab HS PRN Administration CONSTIPATION ASSESSMENT/PLAN: 1) Abdominal Distention --Resolved --Likely 2/2 to ileus from pain medication --Colace liquid on board --Senna 2 tabs HS --Dulcolax suppository q3Day --SSE as needed 2) Acute hypoxic respiratory dysfunction --Weaned off ventilator; tolerating trach collar at 40% --Continue to wean off high O2 percentage as tolerated --Maintain SpO2 >90% --Aspiration precautions: HOB elevated --Increase Fentanyl 50mcg Patch 3) Severe sepsis 2/2 to aspiration PNA --Resolving --ID on board: --Completed 5 days of IV ABX --Observing off antibiotics right now; has been afebrile --Tylenol 650mg GT q6h for fevers --Sputum culture normal sudhir 4) ? Tardive dyskinesia --2/2 to initial lexapro dose --Will taper off pt and observe: --Lexapro 5mg GT qdaily x2 doses then STOP 5) GTube leak --Can restart and if further leak is observed can decrease rate --Currently 50 and would decrease down to 40 or 30 FEN: Fluids: None Electrolyte abnormalities: Pseudohypocalcemia Nutrition: Continue Jevity feeds, add Prosources 30mg BID PPX: DVT - Lovenox 40mg qDaily Code Status: DNR Dispo: Awaiting placement; continue to wean O2 requirements Case discussed with Dr. Rolando Breaux, DO - IM PGY-1 Visit type - Emergency Visit Emergency Visit: No - New Patient This patient is new to me today: No - Critical Care Critical Care patient: No
[2018-05-03] MEDS: ALBUTEROL SO4 2.5/IPRATROPIUM 0.5 INH SOL 3 ML VIAL.NEB. NEB PRN ×2 (02:19→13:42)
[2018-05-03] MEDS: DOCUSATE NA 100 MG/10 ML UNIT-DOSE CUPS PO SCH ×3 (05:21→21:28)
[2018-05-03] MEDS: MAG HYDROX/ALH/SMC/DPHA/LIDO 240 ML MOUTHWASH MM SCH ×3 (05:21→18:49)
[2018-05-03 07:31] LABS: ANION GAP 12 (8-16); BLOOD UREA NITROGEN 11 mg/dL (7-18); CALCIUM 7.7 mg/dL (8.5-10.1); CHLORIDE 94 mmol/L (98-107); CO2 27 mmol/L (21-32); GLUCOSE,RANDOM 143 mg/dL (74-106); SODIUM 133 mmol/L (136-145)
[2018-05-03 07:32] LABS: CREATININE 0.5 mg/dL (0.7-1.3)
[2018-05-03] MEDS: POLYETHYLENE GLYCOL 3350 119 GM BTL PO SCH (09:03)
[2018-05-03] MEDS: AMINO ACIDS/PROTEIN HYDROLYS 30 ML LIQUID.PKT PO SCH ×2 (09:03→18:49)
[2018-05-03] MEDS: ENOXAPARIN NA (PORCINE) 40 MG/0.4 ML DISP.SYRIN SQ SCH (09:03)
[2018-05-03] MEDS: ESCITALOPRAM OXALATE 10 MG TABLET (FP) PO SCH (09:03)
[2018-05-03] MEDS: PANTOPRAZOLE SOD 40 MG SUSPENSION PACKET NGT SCH (09:03)
--- NOTE | 2018-05-03 09:04 | PN ---
Teaching Attending Note Name of Resident: Shay Breaux ATTENDING PHYSICIAN STATEMENT I saw and evaluated the patient. I reviewed the resident's note and discussed the case with the resident. I agree with the resident's findings and plan as documented. SUBJECTIVE: Comfortable with no acute distress. OBJECTIVE: Vital Signs Temperature 98.3 F 05/03/18 06:00 Pulse Rate 92 H 05/03/18 06:00 Respiratory Rate 20 05/03/18 06:00 Blood Pressure 131/93 05/03/18 06:00 O2 Sat by Pulse Oximetry (%) 94 L 05/02/18 21:39 CBCD WBC 5.5 K/mm3 (4.0-10.0) D 04/30/18 05:15 RBC 2.95 M/mm3 (4.00-5.60) L 04/30/18 05:15 Hgb 9.3 GM/dL (11.7-16.9) L 04/30/18 05:15 Hct 27.1 % (35.4-49) L 04/30/18 05:15 MCV 91.9 fl (80-96) 04/30/18 05:15 MCHC 34.3 g/dl (32.0-35.9) 04/30/18 05:15 RDW 15.7 % (11.9-15.9) 04/30/18 05:15 Plt Count 246 K/MM3 (134-434) 04/30/18 05:15 MPV 8.1 fl (7.5-11.1) 04/30/18 05:15 CMP Sodium 133 mmol/L (136-145) L 05/03/18 05:50 Potassium 4.0 mmol/L (3.5-5.1) 05/03/18 05:50 Chloride 94 mmol/L (98-107) L 05/03/18 05:50 Carbon Dioxide 27 mmol/L (21-32) 05/03/18 05:50 Anion Gap 12 (8-16) 05/03/18 05:50 BUN 11 mg/dL (7-18) 05/03/18 05:50 Creatinine 0.5 mg/dL (0.7-1.3) L 05/03/18 05:50 Creat Clearance w eGFR > 60 (>60) 05/03/18 05:50 Random Glucose 143 mg/dL (74-106) H 05/03/18 05:50 Calcium 7.7 mg/dL (8.5-10.1) L 05/03/18 05:50 Total Bilirubin 0.2 mg/dL (0.2-1.0) 04/23/18 08:45 AST 88 U/L (15-37) H D 04/23/18 08:45 ALT 37 U/L (12-78) 04/23/18 08:45 Alkaline Phosphatase 247 U/L (45-117) H 04/23/18 08:45 Total Protein 5.4 g/dl (6.4-8.2) L 04/23/18 08:45 Albumin 2.1 g/dl (3.4-5.0) L 04/24/18 07:00 CARDIAC ENZYMES Troponin I < 0.02 ng/ml (0.00-0.05) 04/16/18 02:15 Current Medications Generic Name Dose Route Start Last Admin Trade Name Freq PRN Reason Stop Dose Admin Albuterol/Ipratropium 1 amp 05/01/18 13:23 05/03/18 02:19 Duoneb - NEB 1 amp Q4H PRN Administration SHORTNESS OF BREATH Amino Acids 30 ml 04/21/18 17:30 05/03/18 09:03 Prosource No Carb Liquid Pkt PO 30 ml BID@0800,1730 YUKO Administration Bisacodyl 10 mg 04/25/18 20:30 05/01/18 21:00 Dulcolax Suppository - RC Not Given Q3D YUKO Docusate Sodium 100 mg 04/23/18 14:00 05/03/18 05:21 Colace Liquid - PO 100 mg TID YUKO Administration Enoxaparin Sodium 40 mg 04/19/18 10:00 05/03/18 09:03 Lovenox - SQ 40 mg DAILY YUKO Administration Escitalopram Oxalate 5 mg 05/03/18 10:00 05/03/18 09:03 Lexapro - PO 05/04/18 10:01 5 mg DAILY YUKO Administration Fentanyl 1 patch 05/02/18 14:00 05/02/18 14:29 Duragesic 50mcg Patch - TD 05/09/18 13:56 1 patch Q72H YUKO Administration IV Flush 10 ml 04/23/18 16:59 04/29/18 15:34 Sheri-Cath Flush IVPUSH 10 ml PRN PRN Administration FLUSH Lidocaine/Aluminum/Magnesium/Simeth 5 ml 04/29/18 18:00 05/03/18 05:21 Magic Mouthwash *Sjr Formula* - MM Not Given Q6HPO YUKO Miscellaneous 1 each 05/02/18 13:55 Duragesic Patch Waste TD PRN PRN PAIN Oxycodone HCl 5 mg 05/02/18 08:23 05/02/18 09:18 Roxicodone - PO 5 mg Q8H PRN Administration pain 7-10 Pantoprazole Sodium 40 mg 04/29/18 10:00 05/03/18 09:03 Protonix Packets For Oral Suspension - NGT 40 mg DAILY YUKO Administration Polyethylene Glycol 17 gm 04/30/18 10:00 05/03/18 09:03 Miralax (For Daily Use) - PO 17 gm DAILY YUKO Administration Senna 2 tab 04/27/18 22:00 04/29/18 22:09 Senna - PO 2 tab HS PRN Administration CONSTIPATION Home Medications Medication Instructions Recorded Calcitriol [Rocaltrol -] 0.25 mcg PEG BID #60 bot 02/14/18 Calcium 500Mg/Vit-D 200 Units 2 tab PO BID #120 tab 02/14/18 [Os-You 500+D -] FENTANYL 25mcg PATCH [DURAGESIC 1 patch TD Q72H 7 Days #1 box MDD 1 02/14/18 25mcg PATCH -] Pe: per resident's note ASSESSMENT AND PLAN: Patient is a 58 y/o gentleman with h/o laryngeal cancer s/p laryngectomy, chemo and radiation, DVT s/p IVC filter , who presented with SOB and AMS and was found to have acute hypoxic resp. failure and sepsis . # Acute hypoxic resp failure due to PNA and Large L pleural effusion, and sepsis which resolved. s/p IV antibiotic # H/o PE: has IVC filter. not on AC at home due to hematuria on AC . on Lovenox Px # occasional extremity jerks. witnessed by and other providers . discontinued Lexapro for possible EPSE # Abd distention :likely due to constipation. Improved cont bowel regimen # Laryngeal cancer, s/p larygnectomy. cont treatment with out pt onc. cont fentanyl patch ( increase dose due to continued pain ) DNR . waiting for placement once insurance approves
--- NOTE | 2018-05-03 13:44 | PN ---
Progress Note, Physician History of Present Illness: stable no issues - Current Medication List Current Medications: Active Medications Albuterol/Ipratropium (Duoneb -) 1 amp NEB Q4H PRN PRN Reason: SHORTNESS OF BREATH Last Admin: 05/03/18 13:42 Dose: 1 amp Amino Acids (Prosource No Carb Liquid Pkt) 30 ml PO BID@0800,1730 [facility] Last Admin: 05/03/18 09:03 Dose: 30 ml Bisacodyl (Dulcolax Suppository -) 10 mg RC Q3D [facility] Last Admin: 05/01/18 21:00 Dose: Not Given Docusate Sodium (Colace Liquid -) 100 mg PO TID [facility] Last Admin: 05/03/18 05:21 Dose: 100 mg Enoxaparin Sodium (Lovenox -) 40 mg SQ DAILY [facility] Last Admin: 05/03/18 09:03 Dose: 40 mg Escitalopram Oxalate (Lexapro -) 5 mg PO DAILY [facility] Stop: 05/04/18 10:01 Last Admin: 05/03/18 09:03 Dose: 5 mg Fentanyl (Duragesic 50mcg Patch -) 1 patch TD Q72H [facility] Stop: 05/09/18 13:56 Last Admin: 05/02/18 14:29 Dose: 1 patch IV Flush (Sheri-Cath Flush) 10 ml IVPUSH PRN PRN PRN Reason: FLUSH Last Admin: 04/29/18 15:34 Dose: 10 ml Lidocaine/Aluminum/Magnesium/Simeth (Magic Mouthwash *Sjr Formula* -) 5 ml MM Q6HPO [facility] Last Admin: 05/03/18 12:54 Dose: Not Given Miscellaneous (Duragesic Patch Waste) 1 each TD PRN PRN PRN Reason: PAIN Oxycodone HCl (Roxicodone -) 5 mg PO Q8H PRN PRN Reason: pain 7-10 Last Admin: 05/02/18 09:18 Dose: 5 mg Pantoprazole Sodium (Protonix Packets For Oral Suspension -) 40 mg NGT DAILY [facility] Last Admin: 05/03/18 09:03 Dose: 40 mg Polyethylene Glycol (Miralax (For Daily Use) -) 17 gm PO DAILY [facility] Last Admin: 05/03/18 09:03 Dose: 17 gm Senna (Senna -) 2 tab PO HS PRN PRN Reason: CONSTIPATION Last Admin: 04/29/18 22:09 Dose: 2 tab - Objective Vital Signs: Vital Signs Temperature 98.4 F 05/03/18 09:05 Pulse Rate 120 H 05/03/18 11:00 Respiratory Rate 30 H 05/03/18 11:00 Blood Pressure 146/80 05/03/18 11:00 O2 Sat by Pulse Oximetry (%) 95 05/03/18 09:00 Constitutional: Yes: No Distress, Calm Cardiovascular: Yes: Regular Rate and Rhythm Respiratory: Yes: Regular, Other (trach in place) Gastrointestinal: Yes: Normal Bowel Sounds, Soft, Other (peg in place) Musculoskeletal: Yes: WNL Extremities: Yes: WNL Neurological: Yes: Alert, Oriented Psychiatric: Yes: Alert, Oriented Labs: CBC, BMP 04/30/18 05:15 05/03/18 05:50 INR, PTT INR 1.32 (0.82-1.09) H 04/18/18 06:00 Assessment/Plan Problem List - Problems (1) Sepsis Code(s): A41.9 - SEPSIS, UNSPECIFIED ORGANISM Qualifiers: Sepsis type: sepsis due to unspecified organism Qualified Code(s): A41.9 - Sepsis, unspecified organism (2) Pneumonia Code(s): J18.9 - PNEUMONIA, UNSPECIFIED ORGANISM Qualifiers: Pneumonia type: due to unspecified organism Laterality: unspecified laterality Lung location: unspecified part of lung Qualified Code(s): J18.9 - Pneumonia, unspecified organism Assessment/Plan 58 y.o. male with PMH of laryngeal CA with metastasis to bone reportedly s/p chemotherapy 2 wks ago presenting with fever/rigors, AMS, respiratory distress Severe Sepsis Acute Respiratory failure s/p tracheostomy/ on MV PNA Pleural Effusion Metastatic laryngeal CA Elevated lactic acid, Fever, leukopenia Hx of DVT s/p IVC filter continue to watch off of abx rest continue current mgmt physio
--- NOTE | 2018-05-03 13:55 | PN ---
Progress Note, Physician History of Present Illness: PULMONARY AWAKE,CONGESTED,INTERMITTENT EPISODES OF RESPIRATORY DISTRESS,DESATURATION - Current Medication List Current Medications: Active Medications Albuterol/Ipratropium (Duoneb -) 1 amp NEB Q4H PRN PRN Reason: SHORTNESS OF BREATH Last Admin: 05/03/18 13:42 Dose: 1 amp Amino Acids (Prosource No Carb Liquid Pkt) 30 ml PO BID@0800,1730 [facility] Last Admin: 05/03/18 09:03 Dose: 30 ml Bisacodyl (Dulcolax Suppository -) 10 mg RC Q3D [facility] Last Admin: 05/01/18 21:00 Dose: Not Given Docusate Sodium (Colace Liquid -) 100 mg PO TID [facility] Last Admin: 05/03/18 05:21 Dose: 100 mg Enoxaparin Sodium (Lovenox -) 40 mg SQ DAILY [facility] Last Admin: 05/03/18 09:03 Dose: 40 mg Escitalopram Oxalate (Lexapro -) 5 mg PO DAILY [facility] Stop: 05/04/18 10:01 Last Admin: 05/03/18 09:03 Dose: 5 mg Fentanyl (Duragesic 50mcg Patch -) 1 patch TD Q72H [facility] Stop: 05/09/18 13:56 Last Admin: 05/02/18 14:29 Dose: 1 patch IV Flush (Sheri-Cath Flush) 10 ml IVPUSH PRN PRN PRN Reason: FLUSH Last Admin: 04/29/18 15:34 Dose: 10 ml Lidocaine/Aluminum/Magnesium/Simeth (Magic Mouthwash *Sjr Formula* -) 5 ml MM Q6HPO [facility] Last Admin: 05/03/18 12:54 Dose: Not Given Miscellaneous (Duragesic Patch Waste) 1 each TD PRN PRN PRN Reason: PAIN Oxycodone HCl (Roxicodone -) 5 mg PO Q8H PRN PRN Reason: pain 7-10 Last Admin: 05/02/18 09:18 Dose: 5 mg Pantoprazole Sodium (Protonix Packets For Oral Suspension -) 40 mg NGT DAILY [facility] Last Admin: 05/03/18 09:03 Dose: 40 mg Polyethylene Glycol (Miralax (For Daily Use) -) 17 gm PO DAILY [facility] Last Admin: 05/03/18 09:03 Dose: 17 gm Senna (Senna -) 2 tab PO HS PRN PRN Reason: CONSTIPATION Last Admin: 04/29/18 22:09 Dose: 2 tab - Objective Vital Signs: Vital Signs Temperature 98.4 F 05/03/18 09:05 Pulse Rate 120 H 05/03/18 11:00 Respiratory Rate 30 H 05/03/18 11:00 Blood Pressure 146/80 05/03/18 11:00 O2 Sat by Pulse Oximetry (%) 95 05/03/18 09:00 Constitutional: Yes: Mild Distress, Thin Eyes: Yes: WNL HENT: Yes: WNL Neck: Yes: WNL Cardiovascular: Yes: Regular Rate and Rhythm, S1, S2 Respiratory: Yes: Rhonchi, Wheezes (BILATERAL RHONCHI AND WHEEZES) Gastrointestinal: Yes: Normal Bowel Sounds, Soft Extremities: Yes: WNL Edema: No Labs: CBC, BMP 05/03/18 05:50 INR, PTT INR 1.32 (0.82-1.09) H 04/18/18 06:00 Problem List - Problems (1) Sepsis Code(s): A41.9 - SEPSIS, UNSPECIFIED ORGANISM (2) Neutropenia Code(s): D70.9 - NEUTROPENIA, UNSPECIFIED (3) Pneumonia Code(s): J18.9 - PNEUMONIA, UNSPECIFIED ORGANISM Qualifiers: Pneumonia type: due to unspecified organism Laterality: unspecified laterality Lung location: unspecified part of lung Qualified Code(s): J18.9 - Pneumonia, unspecified organism (4) Sepsis Code(s): A41.9 - SEPSIS, UNSPECIFIED ORGANISM Qualifiers: Sepsis type: sepsis due to unspecified organism Qualified Code(s): A41.9 - Sepsis, unspecified organism (5) Respiratory failure Code(s): J96.90 - RESPIRATORY FAILURE, UNSP, UNSP W HYPOXIA OR HYPERCAPNIA (7) Acute hypoxemic respiratory failure Code(s): J96.01 - ACUTE RESPIRATORY FAILURE WITH HYPOXIA Assessment/Plan Problem List - Problems (1) Sepsis Code(s): A41.9 - SEPSIS, UNSPECIFIED ORGANISM (2) Neutropenia Code(s): D70.9 - NEUTROPENIA, UNSPECIFIED (3) Pneumonia Code(s): J18.9 - PNEUMONIA, UNSPECIFIED ORGANISM Qualifiers: Pneumonia type: due to unspecified organism Laterality: unspecified laterality Lung location: unspecified part of lung Qualified Code(s): J18.9 - Pneumonia, unspecified organism (4) Sepsis Code(s): A41.9 - SEPSIS, UNSPECIFIED ORGANISM Qualifiers: Sepsis type: sepsis due to unspecified organism Qualified Code(s): A41.9 - Sepsis, unspecified organism (5) Respiratory failure Code(s): J96.90 - RESPIRATORY FAILURE, UNSP, UNSP W HYPOXIA OR HYPERCAPNIA (7) Acute hypoxemic respiratory failure Code(s): J96.01 - ACUTE RESPIRATORY FAILURE WITH HYPOXIA Assessment/Plan IMP: Acute on chronic respiratory failure Sepsis improved Neutropenia resolved Malnutrition Laryngeal CA trach collar VTE prophylaxis DNR /DNI tracheal suctioning inhaled bronchodilators chest-ray short course of medrol abg DR RAMIREZ
[2018-05-03 14:54] LABS: ARTERIAL BLD GAS O2 SATURATION 98.7 % (90-98.9); ARTERIAL BLOOD GAS PCO2 43.2 mmHg (35-45); ARTERIAL BLOOD GAS pH 7.39 (7.35-7.45)
[2018-05-03 14:57] LABS: ALLENS TEST POSITIVE
[2018-05-03] MEDS ORDERED: ACETYLCYSTEINE 20% 200MG/ML 4 ML VIAL *FOR ORAL / INH USE ONLY NEB SCH (16:00)
[2018-05-03] MEDS ORDERED: ACETYLCYSTEINE 20% 200MG/ML 30 ML VIAL *FOR ORAL / INH USE ONLY NEB SCH (16:00)
[2018-05-03] MEDS: methylPREDNISolone NA SUCC 40 MG/1 ML VIAL IVPUSH SCH ×2 (16:00→21:28)
[2018-05-03] MEDS: ALBUTEROL SO4 0.083% IH SOL 2.5 MG/3 ML VIAL.NEB. NEB SCH ×2 (16:15→20:25)
--- NOTE | 2018-05-03 17:28 | PN ---
Physical Exam: UPDATE: Upon re-rounding/review of chart noticed CXR and ABG were performed. Informed by RN about pt desaturating with notable secretions in tracheostomy site. Pt immediately suctioned with O2 increased resulting in resolution of desaturation. Pager was not working so did not receive call by RN, however Dr. Lobato attended to pt who ordered the ABG and CXR. Since desaturation events pt has not had any repeat events. --Added Mucomyst with Albuterol nebulizer [id number] for mucolytic purposes with hopeful expectoration SUBJECTIVE: No events overnight. No acute complaints. More lively today. OBJECTIVE: Vital Signs Period Temp Pulse Resp BP Sys/Shrestha Pulse Ox Last 24 Hr 98.0 F-98.4 F 87-120 20-30 108-146/77-93 94-95 GENERAL: NAD, awake, alert, thin-appearing HEENT: SEVEN, sclera anicteric, dry mucosa, temporal wasting noted NECK: Tracheostomy site intact without secretions LUNGS: CTA b/l. No accessory muscle use. Trach collar with blow-by oxygen HEART: RRR, normal S1 and S2 without murmur ABDOMEN: Soft, nondistended, nontender, normoactive bowel sounds, no guarding, no rebound, no masses. No hepatomegaly. MUSCULOSKELETAL: No CVA tenderness. UPPER EXTREMITIES: 2+ DP pulses, warm, well-perfused. no edema Psych: Improved mood SKIN: Warm, dry, no rashes or lesions noted Laboratory Results - last 24 hr 05/03/18 05/03/18 05:50 14:07 Puncture Site Right radial ABG pH 7.39 ABG pCO2 at Pt Temp 43.2 ABG pO2 at Pt Temp 119.0 H D ABG HCO3 25.5 ABG O2 Sat (Measured) 98.7 ABG O2 Content 11.6 L ABG Base Excess 1.0 Luis Test Positive Oxygen Flow Rate 40 Sodium 133 L Potassium 4.0 Chloride 94 L Carbon Dioxide 27 Anion Gap 12 BUN 11 Creatinine 0.5 L Creat Clearance w eGFR > 60 Random Glucose 143 H Calcium 7.7 L Active Medications Generic Name Dose Route Start Last Admin Trade Name Freq PRN Reason Stop Dose Admin Acetylcysteine 600 mg 05/03/18 16:00 Mucomyst 20 Oral / Inh Use Only* NEB 05/04/18 12:01 RQID YUKO Albuterol Sulfate 1 amp 05/03/18 16:00 Ventolin 0.083% Nebulizer Soln - NEB 05/04/18 12:01 RQID YUKO Albuterol/Ipratropium 1 amp 05/01/18 13:23 05/03/18 13:42 Duoneb - NEB 1 amp Q4H PRN Administration SHORTNESS OF BREATH Amino Acids 30 ml 04/21/18 17:30 05/03/18 09:03 Prosource No Carb Liquid Pkt PO 30 ml BID@0800,1730 [facility] Administration Bisacodyl 10 mg 04/25/18 20:30 05/01/18 21:00 Dulcolax Suppository - RC Not Given Q3D [facility] Docusate Sodium 100 mg 04/23/18 14:00 05/03/18 15:29 Colace Liquid - PO Not Given TID [facility] Enoxaparin Sodium 40 mg 04/19/18 10:00 05/03/18 09:03 Lovenox - SQ 40 mg DAILY YUKO Administration Escitalopram Oxalate 5 mg 05/03/18 10:00 05/03/18 09:03 Lexapro - PO 05/04/18 10:01 5 mg DAILY [facility] Administration Fentanyl 1 patch 05/02/18 14:00 05/02/18 14:29 Duragesic 50mcg Patch - TD 05/09/18 13:56 1 patch Q72H YUKO Administration IV Flush 10 ml 04/23/18 16:59 04/29/18 15:34 Sheri-Cath Flush IVPUSH 10 ml PRN PRN Administration FLUSH Lidocaine/Aluminum/Magnesium/Simeth 5 ml 04/29/18 18:00 05/03/18 12:54 Magic Mouthwash *Sjr Formula* - MM Not Given Q6HPO [facility] Methylprednisolone Sodium Succinate 40 mg 05/03/18 15:00 Solu-Medrol - IVPUSH Q6H-IV YUKO Miscellaneous 1 each 05/02/18 13:55 Duragesic Patch Waste TD PRN PRN PAIN Oxycodone HCl 5 mg 05/02/18 08:23 05/02/18 09:18 Roxicodone - PO 5 mg Q8H PRN Administration pain 7-10 Pantoprazole Sodium 40 mg 04/29/18 10:00 05/03/18 09:03 Protonix Packets For Oral Suspension - NGT 40 mg DAILY YUKO Administration Polyethylene Glycol 17 gm 04/30/18 10:00 05/03/18 09:03 Miralax (For Daily Use) - PO 17 gm DAILY YUKO Administration Senna 2 tab 04/27/18 22:00 04/29/18 22:09 Senna - PO 2 tab HS PRN Administration CONSTIPATION ASSESSMENT/PLAN: 1) Abdominal Distention --Resolved --Likely 2/2 to ileus from pain medication --Colace liquid on board --Senna 2 tabs HS --Dulcolax suppository q3Day --SSE as needed 2) Acute hypoxic respiratory dysfunction --Weaned off ventilator; tolerating trach collar at 40% --Continue to wean off high O2 percentage as tolerated --Maintain SpO2 >90% --Aspiration precautions: HOB elevated --Continue Fentanyl 50mcg Patch 3) Severe sepsis 2/2 to aspiration PNA --Resolving --ID on board: --Completed 5 days of IV ABX --Observing off antibiotics right now; has been afebrile --Tylenol 650mg GT q6h for fevers --Sputum culture normal sudhir 4) ? Tardive dyskinesia --2/2 to initial lexapro dose --Will taper off pt and observe: --Lexapro 5mg GT qdaily x2 doses then STOP 5) GTube leak --Can restart and if further leak is observed can decrease rate --Currently 50 and would decrease down to 40 or 30 FEN: Fluids: None Electrolyte abnormalities: Pseudohypocalcemia Nutrition: Continue Jevity feeds, add Prosources 30mg BID PPX: DVT - Lovenox 40mg qDaily Code Status: DNR Dispo: Awaiting placement; continue to wean O2 requirements Case discussed with Dr. Js Breaux, DO - IM PGY-1 Visit type - Emergency Visit Emergency Visit: No - New Patient This patient is new to me today: No - Critical Care Critical Care patient: No
[2018-05-03] MEDS: ACETYLCYSTEINE 20% 200MG/ML 4 ML VIAL *FOR ORAL / INH USE ONLY NEB SCH (20:25)
[2018-05-03] MEDS: PORTA CATH FLUSH 10 ML IVPUSH PRN (21:28)
[2018-05-04] MEDS: MAG HYDROX/ALH/SMC/DPHA/LIDO 240 ML MOUTHWASH MM SCH ×4 (00:14→17:07)
[2018-05-04] MEDS: methylPREDNISolone NA SUCC 40 MG/1 ML VIAL IVPUSH SCH ×4 (02:49→21:44)
[2018-05-04] MEDS: DOCUSATE NA 100 MG/10 ML UNIT-DOSE CUPS PO SCH ×3 (06:15→21:45)
[2018-05-04] MEDS: AMINO ACIDS/PROTEIN HYDROLYS 30 ML LIQUID.PKT PO SCH ×2 (08:35→17:04)
[2018-05-04] MEDS: ALBUTEROL SO4 0.083% IH SOL 2.5 MG/3 ML VIAL.NEB. NEB SCH ×2 (08:38→12:11)
[2018-05-04] MEDS: ACETYLCYSTEINE 20% 200MG/ML 4 ML VIAL *FOR ORAL / INH USE ONLY NEB SCH ×2 (08:38→12:10)
[2018-05-04] MEDS: ENOXAPARIN NA (PORCINE) 40 MG/0.4 ML DISP.SYRIN SQ SCH (10:34)
[2018-05-04] MEDS: oxyCODONE HCL 5 MG TABLET PO PRN ×2 (10:34→21:45)
[2018-05-04] MEDS: ESCITALOPRAM OXALATE 10 MG TABLET (FP) PO SCH (10:34)
[2018-05-04] MEDS: PANTOPRAZOLE SOD 40 MG SUSPENSION PACKET NGT SCH (10:35)
[2018-05-04] MEDS: POLYETHYLENE GLYCOL 3350 119 GM BTL PO SCH (10:44)
--- NOTE | 2018-05-04 11:08 | PN ---
Progress Note (short form) - Note Progress Note: PULMONARY More somnolent today. No fevers recorded. Requiring 40% fiO2 saturating low 90s. Vital Signs Period Temp Pulse Resp BP Sys/Shrestha Pulse Ox Last 24 Hr 98.1 F-98.3 F 64-117 20-22 111-146/59-91 98 Gen: somnolent on trach collar Heart: RRR Lung: bilateral rhonchi Abd: soft, nontender Ext: no edema CBC, BMP 04/30/18 05:15 05/03/18 05:50 Active Medications Acetylcysteine (Mucomyst 20 Oral / Inh Use Only*) 400 mg NEB RQID [facility] Stop: 05/04/18 12:01 Last Admin: 05/04/18 08:38 Dose: 400 mg Albuterol Sulfate (Ventolin 0.083% Nebulizer Soln -) 1 amp NEB RQID [facility] Stop: 05/04/18 12:01 Last Admin: 05/04/18 08:38 Dose: 1 amp Amino Acids (Prosource No Carb Liquid Pkt) 30 ml PO BID@0800,1730 [facility] Last Admin: 05/04/18 08:35 Dose: 30 ml Bisacodyl (Dulcolax Suppository -) 10 mg RC Q3D [facility] Last Admin: 05/01/18 21:00 Dose: Not Given Docusate Sodium (Colace Liquid -) 100 mg PO TID [facility] Last Admin: 05/04/18 06:15 Dose: 100 mg Enoxaparin Sodium (Lovenox -) 40 mg SQ DAILY [facility] Last Admin: 05/04/18 10:34 Dose: 40 mg Fentanyl (Duragesic 50mcg Patch -) 1 patch TD Q72H [facility] Stop: 05/09/18 13:56 Last Admin: 05/02/18 14:29 Dose: 1 patch IV Flush (Sheri-Cath Flush) 10 ml IVPUSH PRN PRN PRN Reason: FLUSH Last Admin: 05/03/18 21:28 Dose: 10 ml Lidocaine/Aluminum/Magnesium/Simeth (Magic Mouthwash *Sjr Formula* -) 5 ml MM Q6HPO [facility] Last Admin: 05/04/18 06:15 Dose: Not Given Methylprednisolone Sodium Succinate (Solu-Medrol -) 40 mg IVPUSH Q6H-IV [facility] Last Admin: 05/04/18 10:35 Dose: 40 mg Miscellaneous (Duragesic Patch Waste) 1 each TD PRN PRN PRN Reason: PAIN Oxycodone HCl (Roxicodone -) 5 mg PO Q8H PRN PRN Reason: pain 7-10 Last Admin: 05/04/18 10:34 Dose: 5 mg Pantoprazole Sodium (Protonix Packets For Oral Suspension -) 40 mg NGT DAILY [facility] Last Admin: 05/04/18 10:35 Dose: 40 mg Polyethylene Glycol (Miralax (For Daily Use) -) 17 gm PO DAILY [facility] Last Admin: 05/04/18 10:44 Dose: 17 gm Senna (Senna -) 2 tab PO HS PRN PRN Reason: CONSTIPATION Last Admin: 04/29/18 22:09 Dose: 2 tab A/P Acute on Chronic Respiratory failure Pneumonia Pleural Effusion LV Diastolic Dysfunction Laryngeal CA - completed antibiotics - enteral feeds - trach collar as tolerated - taper FiO2 to keep SpO2 >90% - continue medrol - inhaled bronchodilators - DVT prophylaxis
--- NOTE | 2018-05-04 15:03 | PN ---
Progress Note, Physician History of Present Illness: patient had hypoxia yesterday was suctioned now started back on steroids currently stable no fevers - Current Medication List Current Medications: Active Medications Amino Acids (Prosource No Carb Liquid Pkt) 30 ml PO BID@0800,1730 [facility] Last Admin: 05/04/18 08:35 Dose: 30 ml Bisacodyl (Dulcolax Suppository -) 10 mg RC Q3D [facility] Last Admin: 05/01/18 21:00 Dose: Not Given Docusate Sodium (Colace Liquid -) 100 mg PO TID [facility] Last Admin: 05/04/18 06:15 Dose: 100 mg Enoxaparin Sodium (Lovenox -) 40 mg SQ DAILY [facility] Last Admin: 05/04/18 10:34 Dose: 40 mg Fentanyl (Duragesic 50mcg Patch -) 1 patch TD Q72H [facility] Stop: 05/09/18 13:56 Last Admin: 05/02/18 14:29 Dose: 1 patch IV Flush (Sheri-Cath Flush) 10 ml IVPUSH PRN PRN PRN Reason: FLUSH Last Admin: 05/03/18 21:28 Dose: 10 ml Lidocaine/Aluminum/Magnesium/Simeth (Magic Mouthwash *Sjr Formula* -) 5 ml MM Q6HPO [facility] Last Admin: 05/04/18 13:12 Dose: Not Given Methylprednisolone Sodium Succinate (Solu-Medrol -) 40 mg IVPUSH Q6H-IV [facility] Last Admin: 05/04/18 10:35 Dose: 40 mg Miscellaneous (Duragesic Patch Waste) 1 each TD PRN PRN PRN Reason: PAIN Oxycodone HCl (Roxicodone -) 5 mg PO Q8H PRN PRN Reason: pain 7-10 Last Admin: 05/04/18 10:34 Dose: 5 mg Pantoprazole Sodium (Protonix Packets For Oral Suspension -) 40 mg NGT DAILY [facility] Last Admin: 05/04/18 10:35 Dose: 40 mg Polyethylene Glycol (Miralax (For Daily Use) -) 17 gm PO DAILY [facility] Last Admin: 05/04/18 10:44 Dose: 17 gm Senna (Senna -) 2 tab PO HS PRN PRN Reason: CONSTIPATION Last Admin: 04/29/18 22:09 Dose: 2 tab - Objective Vital Signs: Vital Signs Temperature 98.3 F 05/04/18 06:10 Pulse Rate 64 05/04/18 08:37 Respiratory Rate 20 05/04/18 09:00 Blood Pressure 129/91 05/04/18 06:10 O2 Sat by Pulse Oximetry (%) 98 05/04/18 08:37 Constitutional: Yes: No Distress, Calm Cardiovascular: Yes: Regular Rate and Rhythm Respiratory: Yes: Regular, Poor Air Entry, Other (trach collar 40 percent) Gastrointestinal: Yes: Normal Bowel Sounds, Soft, Other (peg in place) Musculoskeletal: Yes: WNL Extremities: Yes: WNL Neurological: Yes: Alert, Oriented Psychiatric: Yes: Alert, Oriented Labs: CBC, BMP 04/30/18 05:15 05/03/18 05:50 INR, PTT INR 1.32 (0.82-1.09) H 04/18/18 06:00 Assessment/Plan Problem List - Problems (1) Sepsis Code(s): A41.9 - SEPSIS, UNSPECIFIED ORGANISM Qualifiers: Sepsis type: sepsis due to unspecified organism Qualified Code(s): A41.9 - Sepsis, unspecified organism (2) Pneumonia Code(s): J18.9 - PNEUMONIA, UNSPECIFIED ORGANISM Qualifiers: Pneumonia type: due to unspecified organism Laterality: unspecified laterality Lung location: unspecified part of lung Qualified Code(s): J18.9 - Pneumonia, unspecified organism resp failure hypoxia Assessment/Plan 58 y.o. 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
[2018-05-04] MEDS ORDERED: LACTULOSE 10 GM/15 ML BULK BOTTLE RC ONE (18:00)
--- NOTE | 2018-05-04 18:30 | PN ---
Teaching Attending Note Name of Resident: Shay Breaux ATTENDING PHYSICIAN STATEMENT I saw and evaluated the patient. I reviewed the resident's note and discussed the case with the resident. I agree with the resident's findings and plan as documented. SUBJECTIVE: No new changes OBJECTIVE: Vital Signs Temperature 97.9 F 05/04/18 15:06 Pulse Rate 93 H 05/04/18 15:06 Respiratory Rate 20 05/04/18 15:06 Blood Pressure 125/83 05/04/18 15:06 O2 Sat by Pulse Oximetry (%) 98 05/04/18 08:37 CBCD WBC 5.5 K/mm3 (4.0-10.0) D 04/30/18 05:15 RBC 2.95 M/mm3 (4.00-5.60) L 04/30/18 05:15 Hgb 9.3 GM/dL (11.7-16.9) L 04/30/18 05:15 Hct 27.1 % (35.4-49) L 04/30/18 05:15 MCV 91.9 fl (80-96) 04/30/18 05:15 MCHC 34.3 g/dl (32.0-35.9) 04/30/18 05:15 RDW 15.7 % (11.9-15.9) 04/30/18 05:15 Plt Count 246 K/MM3 (134-434) 04/30/18 05:15 MPV 8.1 fl (7.5-11.1) 04/30/18 05:15 CMP Sodium 133 mmol/L (136-145) L 05/03/18 05:50 Potassium 4.0 mmol/L (3.5-5.1) 05/03/18 05:50 Chloride 94 mmol/L (98-107) L 05/03/18 05:50 Carbon Dioxide 27 mmol/L (21-32) 05/03/18 05:50 Anion Gap 12 (8-16) 05/03/18 05:50 BUN 11 mg/dL (7-18) 05/03/18 05:50 Creatinine 0.5 mg/dL (0.7-1.3) L 05/03/18 05:50 Creat Clearance w eGFR > 60 (>60) 05/03/18 05:50 Random Glucose 143 mg/dL (74-106) H 05/03/18 05:50 Calcium 7.7 mg/dL (8.5-10.1) L 05/03/18 05:50 Total Bilirubin 0.2 mg/dL (0.2-1.0) 04/23/18 08:45 AST 88 U/L (15-37) H D 04/23/18 08:45 ALT 37 U/L (12-78) 04/23/18 08:45 Alkaline Phosphatase 247 U/L (45-117) H 04/23/18 08:45 Total Protein 5.4 g/dl (6.4-8.2) L 04/23/18 08:45 Albumin 2.1 g/dl (3.4-5.0) L 04/24/18 07:00 CARDIAC ENZYMES Troponin I < 0.02 ng/ml (0.00-0.05) 04/16/18 02:15 Current Medications Generic Name Dose Route Start Last Admin Trade Name Freq PRN Reason Stop Dose Admin Amino Acids 30 ml 04/21/18 17:30 05/04/18 17:04 Prosource No Carb Liquid Pkt PO Not Given BID@0800,1730 [facility] INCLUDES [facility] Bisacodyl 10 mg 04/25/18 20:30 05/01/18 21:00 Dulcolax Suppository - RC Not Given Q3D COUNT INCLUDES [facility] Docusate Sodium 100 mg 04/23/18 14:00 05/04/18 15:05 Colace Liquid - PO 100 mg TID YUKO Administration Enoxaparin Sodium 40 mg 04/19/18 10:00 05/04/18 10:34 Lovenox - SQ 40 mg DAILY YUKO Administration Fentanyl 1 patch 05/02/18 14:00 05/02/18 14:29 Duragesic 50mcg Patch - TD 05/09/18 13:56 1 patch Q72H YUKO Administration IV Flush 10 ml 04/23/18 16:59 05/03/18 21:28 Sheri-Cath Flush IVPUSH 10 ml PRN PRN Administration FLUSH Lidocaine/Aluminum/Magnesium/Simeth 5 ml 04/29/18 18:00 05/04/18 17:07 Magic Mouthwash *Sjr Formula* - MM Not Given Q6HPO COUNT INCLUDES [facility] Methylprednisolone Sodium Succinate 40 mg 05/03/18 15:00 05/04/18 15:04 Solu-Medrol - IVPUSH 40 mg Q6H-IV YUKO Administration Miscellaneous 1 each 05/02/18 13:55 Duragesic Patch Waste TD PRN PRN PAIN Oxycodone HCl 5 mg 05/02/18 08:23 05/04/18 10:34 Roxicodone - PO 5 mg Q8H PRN Administration pain 7-10 Pantoprazole Sodium 40 mg 04/29/18 10:00 05/04/18 10:35 Protonix Packets For Oral Suspension - NGT 40 mg DAILY YUKO Administration Polyethylene Glycol 17 gm 04/30/18 10:00 05/04/18 10:44 Miralax (For Daily Use) - PO 17 gm DAILY YUKO Administration Senna 2 tab 04/27/18 22:00 04/29/18 22:09 Senna - PO 2 tab HS PRN Administration CONSTIPATION Home Medications Medication Instructions Recorded Calcitriol [Rocaltrol -] 0.25 mcg PEG BID #60 bot 02/14/18 Calcium 500Mg/Vit-D 200 Units 2 tab PO BID #120 tab 02/14/18 [Os-You 500+D -] FENTANYL 25mcg PATCH [DURAGESIC 1 patch TD Q72H 7 Days #1 box MDD 1 02/14/18 25mcg PATCH -] Pe: per resident's note ASSESSMENT AND PLAN: Patient is a 58 y/o gentleman with h/o laryngeal cancer s/p laryngectomy, chemo and radiation, DVT s/p IVC filter , who presented with SOB and AMS and was found to have acute hypoxic resp. failure and sepsis . # s/p hypoxic resp failure due to PNA and Large L pleural effusion, and sepsis which resolved. s/p IV antibiotic # H/o PE: has IVC filter. not on AC at home due to hematuria on AC . on Lovenox Px # occasional extremity jerks. witnessed by and other providers . discontinued Lexapro for possible EPSE # Abd distention :likely due to constipation. Improved cont bowel regimen # Laryngeal cancer, s/p larygnectomy. cont treatment with out pt onc. cont fentanyl patch ( increase dose due to continued pain ) DNR . waiting for placement once insurance approves will repeat labs for am
--- NOTE | 2018-05-04 18:41 | PN ---
Physical Exam: UPDATE 1: Paged by RN about distention and GT leak. Attended to pt with abdominal distention, soft, tympanitic, and leak from GT site. Pt's at bedside. Feeds on hold. --Only 1 BM yesterday; Lactulose MO ordered, SSE if needed as well --Hold feeds, once resolved will restart feeds at 30cc with possible increase to 40cc --Discussed with and answered questions SUBJECTIVE: No events overnight. No changes or complaints today. OBJECTIVE: Vital Signs Period Temp Pulse Resp BP Sys/Shrestha Pulse Ox Last 24 Hr 97.9 F-98.3 F 64-103 20-22 120-129/76-91 97-98 GENERAL: NAD, awake, alert, thin-appearing HEENT: SEVEN, sclera anicteric, dry mucosa, temporal wasting noted NECK: Tracheostomy site intact without secretions LUNGS: CTA b/l. No accessory muscle use. Trach collar with blow-by oxygen HEART: RRR, normal S1 and S2 without murmur ABDOMEN: Soft, nondistended, nontender, normoactive bowel sounds, no guarding, no rebound, no masses. No hepatomegaly. MUSCULOSKELETAL: No CVA tenderness. UPPER EXTREMITIES: 2+ DP pulses, warm, well-perfused. no edema Psych: Improved mood SKIN: Warm, dry, no rashes or lesions noted Active Medications Generic Name Dose Route Start Last Admin Trade Name Freq PRN Reason Stop Dose Admin Amino Acids 30 ml 04/21/18 17:30 05/04/18 17:04 Prosource No Carb Liquid Pkt PO Not Given BID@0800,1730 YUKO Bisacodyl 10 mg 04/25/18 20:30 05/01/18 21:00 Dulcolax Suppository - RC Not Given Q3D YUKO Docusate Sodium 100 mg 04/23/18 14:00 05/04/18 15:05 Colace Liquid - PO 100 mg TID YUKO Administration Enoxaparin Sodium 40 mg 04/19/18 10:00 05/04/18 10:34 Lovenox - SQ 40 mg DAILY YUKO Administration Fentanyl 1 patch 05/02/18 14:00 05/02/18 14:29 Duragesic 50mcg Patch - TD 05/09/18 13:56 1 patch Q72H YUKO Administration IV Flush 10 ml 04/23/18 16:59 05/03/18 21:28 Sheri-Cath Flush IVPUSH 10 ml PRN PRN Administration FLUSH Lidocaine/Aluminum/Magnesium/Simeth 5 ml 04/29/18 18:00 05/04/18 17:07 Magic Mouthwash *Sjr Formula* - MM Not Given Q6HPO YUKO Methylprednisolone Sodium Succinate 40 mg 05/03/18 15:00 05/04/18 15:04 Solu-Medrol - IVPUSH 40 mg Q6H-IV YUKO Administration Miscellaneous 1 each 05/02/18 13:55 Duragesic Patch Waste TD PRN PRN PAIN Oxycodone HCl 5 mg 05/02/18 08:23 05/04/18 10:34 Roxicodone - PO 5 mg Q8H PRN Administration pain 7-10 Pantoprazole Sodium 40 mg 04/29/18 10:00 05/04/18 10:35 Protonix Packets For Oral Suspension - NGT 40 mg DAILY YUKO Administration Polyethylene Glycol 17 gm 04/30/18 10:00 05/04/18 10:44 Miralax (For Daily Use) - PO 17 gm DAILY YUKO Administration Senna 2 tab 04/27/18 22:00 04/29/18 22:09 Senna - PO 2 tab HS PRN Administration CONSTIPATION ASSESSMENT/PLAN: 1) Abdominal Distention --Likely 2/2 to ileus from pain medication --Colace liquid on board --Senna 2 tabs HS --Dulcolax suppository q3Day --SSE as needed 2) Acute hypoxic respiratory dysfunction --Weaned off ventilator; tolerating trach collar at 40% --Continue to wean off high O2 percentage as tolerated --Maintain SpO2 >90% --Aspiration precautions: HOB elevated --Continue Fentanyl 50mcg Patch 3) Severe sepsis 2/2 to aspiration PNA --Resolving --ID on board: --Completed 5 days of IV ABX --Observing off antibiotics right now; has been afebrile --Tylenol 650mg GT q6h for fevers --Sputum culture normal sudhir 4) ? Tardive dyskinesia --2/2 to initial lexapro dose --Will taper off pt and observe: --Discontinue lexapro after dose today 5) GTube leak --Can restart and if further leak is observed can decrease rate --Currently 50 and would decrease down to 40cc or 30cc FEN: Fluids: None Electrolyte abnormalities: Pseudohypocalcemia Nutrition: Continue Jevity feeds, add Prosources 30mg BID PPX: DVT - Lovenox 40mg qDaily Code Status: DNR Dispo: Awaiting placement; continue to wean O2 requirements Case discussed with Dr. Js Breaux, DO - IM PGY-1 Visit type - Emergency Visit Emergency Visit: No - New Patient This patient is new to me today: No - Critical Care Critical Care patient: No
[2018-05-04] MEDS: BISACODYL 10 MG SUPP.RECT RC SCH (21:44)
[2018-05-05] MEDS: MAG HYDROX/ALH/SMC/DPHA/LIDO 240 ML MOUTHWASH MM SCH ×4 (01:08→17:32)
[2018-05-05] MEDS: methylPREDNISolone NA SUCC 40 MG/1 ML VIAL IVPUSH SCH ×3 (03:10→12:58)
[2018-05-05] MEDS: DOCUSATE NA 100 MG/10 ML UNIT-DOSE CUPS PO SCH ×3 (06:04→22:38)
[2018-05-05 07:49] LABS: HEMATOCRIT 37.6 % (35.4-49); HEMOGLOBIN 12.3 GM/dL (11.7-16.9); MCHC 32.6 g/dl (32.0-35.9); MEAN CELL VOLUME 91.9 fl (80-96); MEAN PLT VOLUME 7.4 fl (7.5-11.1); PLATELET COUNT 371 K/MM3 (134-434); RBC 4.09 M/mm3 (4.00-5.60); RDW 16.2 % (11.9-15.9); WHITE BLOOD COUNT 5.3 K/mm3 (4.0-10.0)
[2018-05-05] MEDS: AMINO ACIDS/PROTEIN HYDROLYS 30 ML LIQUID.PKT PO SCH ×2 (08:22→17:32)
[2018-05-05 08:31] LABS: ALBUMIN 2.5 g/dl (3.4-5.0); ANION GAP 11 (8-16); BLOOD UREA NITROGEN 8 mg/dL (7-18); CALCIUM 8.1 mg/dL (8.5-10.1); CHLORIDE 94 mmol/L (98-107); CO2 26 mmol/L (21-32); GLUCOSE,RANDOM 99 mg/dL (74-106); MAGNESIUM 2.2 mg/dL (1.8-2.4); SODIUM 131 mmol/L (136-145)
[2018-05-05 08:34] LABS: ALK PHOS 261 U/L (45-117); BILIRUBIN,TOTAL 0.3 mg/dL (0.2-1.0); CREATININE 0.5 mg/dL (0.7-1.3); SGOT/AST 104 U/L (15-37); SGPT/ALT 44 U/L (12-78); TOT PROT 6.9 g/dl (6.4-8.2)
[2018-05-05] MEDS ORDERED: SODIUM CHLORIDE 1,000 ML IV SCH ×2 (09:15→19:45)
--- NOTE | 2018-05-05 11:10 | PN ---
Physical Exam: SUBJECTIVE: No complaints. No events. Pt seems more active and upbeat compared to prior days. NAD. OBJECTIVE: Vital Signs Period Temp Pulse Resp BP Sys/Shrestha Pulse Ox Last 24 Hr 97.5 F-98.1 F 85-93 18-20 109-127/77-83 97-99 GENERAL: NAD, awake, alert, thin-appearing HEENT: SEVEN, sclera anicteric, dry mucosa, temporal wasting noted NECK: Tracheostomy site intact without secretions LUNGS: CTA b/l. No accessory muscle use. Trach collar with blow-by oxygen HEART: RRR, normal S1 and S2 without murmur ABDOMEN: Soft, nondistended, nontender, normoactive bowel sounds, no guarding, no rebound, no masses. No hepatomegaly. MUSCULOSKELETAL: No CVA tenderness. UPPER EXTREMITIES: 2+ DP pulses, warm, well-perfused. no edema Psych: Improved mood SKIN: Warm, dry, no rashes or lesions noted Laboratory Results - last 24 hr 05/05/18 05/05/18 06:16 06:16 WBC 5.3 RBC 4.09 D Hgb 12.3 D Hct 37.6 D MCV 91.9 MCH 30.0 MCHC 32.6 RDW 16.2 H Plt Count 371 D MPV 7.4 L Sodium 131 L Potassium 5.0 D Chloride 94 L Carbon Dioxide 26 Anion Gap 11 BUN 8 D Creatinine 0.5 L Creat Clearance w eGFR > 60 Random Glucose 99 D Calcium 8.1 L Phosphorus 3.0 Magnesium 2.2 Total Bilirubin 0.3 D AST 104 H ALT 44 Alkaline Phosphatase 261 H Total Protein 6.9 D Albumin 2.5 L Active Medications Generic Name Dose Route Start Last Admin Trade Name Freq PRN Reason Stop Dose Admin Amino Acids 30 ml 04/21/18 17:30 05/05/18 08:22 Prosource No Carb Liquid Pkt PO Not Given BID@0800,1730 YUKO Bisacodyl 10 mg 04/25/18 20:30 05/04/18 21:44 Dulcolax Suppository - RC 10 mg Q3D YUKO Administration Docusate Sodium 100 mg 04/23/18 14:00 05/05/18 06:04 Colace Liquid - PO Not Given TID YUKO Enoxaparin Sodium 40 mg 04/19/18 10:00 05/04/18 10:34 Lovenox - SQ 40 mg DAILY YUKO Administration Fentanyl 1 patch 05/02/18 14:00 05/02/18 14:29 Duragesic 50mcg Patch - TD 05/09/18 13:56 1 patch Q72H YUKO Administration IV Flush 10 ml 04/23/18 16:59 05/03/18 21:28 Sheri-Cath Flush IVPUSH 10 ml PRN PRN Administration FLUSH Sodium Chloride 1,000 mls @ 50 mls/hr 05/05/18 09:15 Normal Saline - IV 05/06/18 05:14 ASDIR YUKO Lidocaine/Aluminum/Magnesium/Simeth 5 ml 04/29/18 18:00 05/05/18 06:04 Magic Mouthwash *Sjr Formula* - MM Not Given Q6HPO YUKO Methylprednisolone Sodium Succinate 40 mg 05/03/18 15:00 05/05/18 03:10 Solu-Medrol - IVPUSH 40 mg Q6H-IV YUKO Administration Miscellaneous 1 each 05/02/18 13:55 Duragesic Patch Waste TD PRN PRN PAIN Oxycodone HCl 5 mg 05/02/18 08:23 05/04/18 21:45 Roxicodone - PO 5 mg Q8H PRN Administration pain 7-10 Pantoprazole Sodium 40 mg 04/29/18 10:00 05/04/18 10:35 Protonix Packets For Oral Suspension - NGT 40 mg DAILY YUKO Administration Polyethylene Glycol 17 gm 04/30/18 10:00 05/04/18 10:44 Miralax (For Daily Use) - PO 17 gm DAILY YUKO Administration Senna 2 tab 04/27/18 22:00 04/29/18 22:09 Senna - PO 2 tab HS PRN Administration CONSTIPATION ASSESSMENT/PLAN: 1) Abdominal Distention --Likely 2/2 to ileus from pain medication --Colace liquid on board --Senna 2 tabs HS --Dulcolax suppository q3Day --SSE as needed 2) Acute hypoxic respiratory dysfunction --Weaned off ventilator; tolerating trach collar at 40% --Continue to wean off high O2 percentage as tolerated --Maintain SpO2 >90% --Aspiration precautions: HOB elevated --Continue Fentanyl 50mcg Patch 3) Severe sepsis 2/2 to aspiration PNA --Resolved --ID on board: --Completed 5 days of IV ABX 4) ? Tardive dyskinesia --Resolved once off Lexapro 5) GTube leak --Can restart and if further leak is observed can decrease rate --Currently 50 and would decrease down to 40cc or 30cc FEN: Fluids: None Electrolyte abnormalities: Pseudohypocalcemia Nutrition: Continue Jevity feeds, add Prosources 30mg BID PPX: DVT - Lovenox 40mg qDaily Code Status: DNR Dispo: Awaiting placement; continue to wean O2 requirements Case discussed with Dr. Js Breaux, DO - IM PGY-1 Visit type - Emergency Visit Emergency Visit: No - New Patient This patient is new to me today: No - Critical Care Critical Care patient: No
[2018-05-05] MEDS: PANTOPRAZOLE SOD 40 MG SUSPENSION PACKET NGT SCH (11:22)
[2018-05-05] MEDS: ENOXAPARIN NA (PORCINE) 40 MG/0.4 ML DISP.SYRIN SQ SCH (11:22)
[2018-05-05] MEDS: POLYETHYLENE GLYCOL 3350 119 GM BTL PO SCH (11:37)
--- NOTE | 2018-05-05 12:15 | PN ---
Progress Note, Physician History of Present Illness: PULMONARY ALERT,ON TRACH COLLAR, -RESP DISTRESS - Current Medication List Current Medications: Active Medications Amino Acids (Prosource No Carb Liquid Pkt) 30 ml PO BID@0800,1730 [facility] Last Admin: 05/05/18 08:22 Dose: Not Given Bisacodyl (Dulcolax Suppository -) 10 mg RC Q3D [facility] Last Admin: 05/04/18 21:44 Dose: 10 mg Docusate Sodium (Colace Liquid -) 100 mg PO TID [facility] Last Admin: 05/05/18 06:04 Dose: Not Given Enoxaparin Sodium (Lovenox -) 40 mg SQ DAILY [facility] Last Admin: 05/05/18 11:22 Dose: 40 mg Fentanyl (Duragesic 50mcg Patch -) 1 patch TD Q72H [facility] Stop: 05/09/18 13:56 Last Admin: 05/02/18 14:29 Dose: 1 patch IV Flush (Sheri-Cath Flush) 10 ml IVPUSH PRN PRN PRN Reason: FLUSH Last Admin: 05/03/18 21:28 Dose: 10 ml Sodium Chloride (Normal Saline -) 1,000 mls @ 50 mls/hr IV ASDIR [facility] Stop: 05/06/18 05:14 Last Admin: 05/05/18 11:22 Dose: 50 mls/hr Lidocaine/Aluminum/Magnesium/Simeth (Magic Mouthwash *Sjr Formula* -) 5 ml MM Q6HPO [facility] Last Admin: 05/05/18 11:27 Dose: Not Given Methylprednisolone Sodium Succinate (Solu-Medrol -) 40 mg IVPUSH Q6H-IV [facility] Last Admin: 05/05/18 10:10 Dose: 40 mg Miscellaneous (Duragesic Patch Waste) 1 each TD PRN PRN PRN Reason: PAIN Oxycodone HCl (Roxicodone -) 5 mg PO Q8H PRN PRN Reason: pain 7-10 Last Admin: 05/04/18 21:45 Dose: 5 mg Pantoprazole Sodium (Protonix Packets For Oral Suspension -) 40 mg NGT DAILY [facility] Last Admin: 05/05/18 11:22 Dose: 40 mg Polyethylene Glycol (Miralax (For Daily Use) -) 17 gm PO DAILY [facility] Last Admin: 05/05/18 11:37 Dose: 17 gm Senna (Senna -) 2 tab PO HS PRN PRN Reason: CONSTIPATION Last Admin: 04/29/18 22:09 Dose: 2 tab - Objective Vital Signs: Vital Signs Temperature 97.5 F L 05/05/18 05:50 Pulse Rate 94 H 05/05/18 10:00 Respiratory Rate 18 05/05/18 10:00 Blood Pressure 114/82 05/05/18 10:00 O2 Sat by Pulse Oximetry (%) 99 05/05/18 08:07 Constitutional: Yes: Calm, Thin Eyes: Yes: WNL HENT: Yes: WNL Neck: Yes: Supple (TRACH) Cardiovascular: Yes: Regular Rate and Rhythm, S1, S2 Respiratory: Yes: Rhonchi (FEW SCATTERED RHONCHI) Gastrointestinal: Yes: Normal Bowel Sounds, Soft Extremities: Yes: WNL Edema: No Labs: CBC, BMP 05/05/18 06:16 05/05/18 06:16 Problem List - Problems (1) Sepsis Code(s): A41.9 - SEPSIS, UNSPECIFIED ORGANISM (2) Neutropenia Code(s): D70.9 - NEUTROPENIA, UNSPECIFIED (3) Pneumonia Code(s): J18.9 - PNEUMONIA, UNSPECIFIED ORGANISM Qualifiers: Pneumonia type: due to unspecified organism Laterality: unspecified laterality Lung location: unspecified part of lung Qualified Code(s): J18.9 - Pneumonia, unspecified organism (4) Sepsis Code(s): A41.9 - SEPSIS, UNSPECIFIED ORGANISM Qualifiers: Sepsis type: sepsis due to unspecified organism Qualified Code(s): A41.9 - Sepsis, unspecified organism (5) Respiratory failure Code(s): J96.90 - RESPIRATORY FAILURE, UNSP, UNSP W HYPOXIA OR HYPERCAPNIA (7) Acute hypoxemic respiratory failure Code(s): J96.01 - ACUTE RESPIRATORY FAILURE WITH HYPOXIA Assessment/Plan Problem List - Problems (1) Sepsis Code(s): A41.9 - SEPSIS, UNSPECIFIED ORGANISM (2) Neutropenia Code(s): D70.9 - NEUTROPENIA, UNSPECIFIED (3) Pneumonia Code(s): J18.9 - PNEUMONIA, UNSPECIFIED ORGANISM Qualifiers: Pneumonia type: due to unspecified organism Laterality: unspecified laterality Lung location: unspecified part of lung Qualified Code(s): J18.9 - Pneumonia, unspecified organism (4) Sepsis Code(s): A41.9 - SEPSIS, UNSPECIFIED ORGANISM Qualifiers: Sepsis type: sepsis due to unspecified organism Qualified Code(s): A41.9 - Sepsis, unspecified organism (5) Respiratory failure Code(s): J96.90 - RESPIRATORY FAILURE, UNSP, UNSP W HYPOXIA OR HYPERCAPNIA (7) Acute hypoxemic respiratory failure Code(s): J96.01 - ACUTE RESPIRATORY FAILURE WITH HYPOXIA Assessment/Plan IMP: Acute on chronic respiratory failure improving Sepsis improved Neutropenia resolved Malnutrition Laryngeal CA trach collar VTE prophylaxis DNR /DNI tracheal suctioning inhaled bronchodilators chest-ray medrol taper DR RAMIREZ
--- NOTE | 2018-05-05 14:39 | PN ---
Progress Note, Physician History of Present Illness: on trach collar no resp distress - Current Medication List Current Medications: Active Medications Amino Acids (Prosource No Carb Liquid Pkt) 30 ml PO BID@0800,1730 [facility] Last Admin: 05/05/18 08:22 Dose: Not Given Bisacodyl (Dulcolax Suppository -) 10 mg RC Q3D [facility] Last Admin: 05/04/18 21:44 Dose: 10 mg Docusate Sodium (Colace Liquid -) 100 mg PO TID [facility] Last Admin: 05/05/18 14:36 Dose: Not Given Enoxaparin Sodium (Lovenox -) 40 mg SQ DAILY [facility] Last Admin: 05/05/18 11:22 Dose: 40 mg Fentanyl (Duragesic 50mcg Patch -) 1 patch TD Q72H [facility] Stop: 05/09/18 13:56 Last Admin: 05/02/18 14:29 Dose: 1 patch IV Flush (Sheri-Cath Flush) 10 ml IVPUSH PRN PRN PRN Reason: FLUSH Last Admin: 05/03/18 21:28 Dose: 10 ml Sodium Chloride (Normal Saline -) 1,000 mls @ 50 mls/hr IV ASDIR [facility] Stop: 05/06/18 05:14 Last Admin: 05/05/18 11:22 Dose: 50 mls/hr Lidocaine/Aluminum/Magnesium/Simeth (Magic Mouthwash *Sjr Formula* -) 5 ml MM Q6HPO [facility] Last Admin: 05/05/18 11:27 Dose: Not Given Methylprednisolone Sodium Succinate (Solu-Medrol -) 40 mg IVPUSH Q12H [facility] Last Admin: 05/05/18 12:58 Dose: Not Given Miscellaneous (Duragesic Patch Waste) 1 each TD PRN PRN PRN Reason: PAIN Oxycodone HCl (Roxicodone -) 5 mg PO Q8H PRN PRN Reason: pain 7-10 Last Admin: 05/04/18 21:45 Dose: 5 mg Pantoprazole Sodium (Protonix Packets For Oral Suspension -) 40 mg NGT DAILY [facility] Last Admin: 05/05/18 11:22 Dose: 40 mg Polyethylene Glycol (Miralax (For Daily Use) -) 17 gm PO DAILY [facility] Last Admin: 05/05/18 11:37 Dose: 17 gm Senna (Senna -) 2 tab PO HS PRN PRN Reason: CONSTIPATION Last Admin: 04/29/18 22:09 Dose: 2 tab - Objective Vital Signs: Vital Signs Temperature 97.5 F L 05/05/18 05:50 Pulse Rate 94 H 05/05/18 10:00 Respiratory Rate 18 05/05/18 10:00 Blood Pressure 114/82 05/05/18 10:00 O2 Sat by Pulse Oximetry (%) 99 05/05/18 08:07 Constitutional: Yes: No Distress, Calm Cardiovascular: Yes: Regular Rate and Rhythm Respiratory: Yes: Other (on trach collar) Gastrointestinal: Yes: Normal Bowel Sounds, Soft, Other (peg tube in place) Musculoskeletal: Yes: WNL Extremities: Yes: WNL Neurological: Yes: Alert, Oriented Psychiatric: Yes: Alert, Oriented Labs: CBC, BMP 05/05/18 06:16 05/05/18 06:16 INR, PTT INR 1.32 (0.82-1.09) H 04/18/18 06:00 Assessment/Plan Problem List - Problems (1) Sepsis Code(s): A41.9 - SEPSIS, UNSPECIFIED ORGANISM Qualifiers: Sepsis type: sepsis due to unspecified organism Qualified Code(s): A41.9 - Sepsis, unspecified organism (2) Pneumonia Code(s): J18.9 - PNEUMONIA, UNSPECIFIED ORGANISM Qualifiers: Pneumonia type: due to unspecified organism Laterality: unspecified laterality Lung location: unspecified part of lung Qualified Code(s): J18.9 - Pneumonia, unspecified organism resp failure hypoxia Assessment/Plan 58 y.o. 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
[2018-05-05] MEDS: fentaNYL 50mcg/hr PATCH.TD72 TD SCH (16:10)
--- NOTE | 2018-05-05 19:19 | PN ---
Teaching Attending Note Name of Resident: Shay Breaux ATTENDING PHYSICIAN STATEMENT I saw and evaluated the patient. I reviewed the resident's note and discussed the case with the resident. I agree with the resident's findings and plan as documented. SUBJECTIVE: Patient is comfortable with no acute distress OBJECTIVE: Vital Signs Temperature 97.2 F L 05/05/18 18:00 Pulse Rate 94 H 05/05/18 18:00 Respiratory Rate 18 05/05/18 18:00 Blood Pressure 110/80 05/05/18 18:00 O2 Sat by Pulse Oximetry (%) 99 05/05/18 17:56 CBCD WBC 5.3 K/mm3 (4.0-10.0) 05/05/18 06:16 RBC 4.09 M/mm3 (4.00-5.60) D 05/05/18 06:16 Hgb 12.3 GM/dL (11.7-16.9) D 05/05/18 06:16 Hct 37.6 % (35.4-49) D 05/05/18 06:16 MCV 91.9 fl (80-96) 05/05/18 06:16 MCHC 32.6 g/dl (32.0-35.9) 05/05/18 06:16 RDW 16.2 % (11.9-15.9) H 05/05/18 06:16 Plt Count 371 K/MM3 (134-434) D 05/05/18 06:16 MPV 7.4 fl (7.5-11.1) L 05/05/18 06:16 CMP Sodium 131 mmol/L (136-145) L 05/05/18 06:16 Potassium 5.0 mmol/L (3.5-5.1) D 05/05/18 06:16 Chloride 94 mmol/L (98-107) L 05/05/18 06:16 Carbon Dioxide 26 mmol/L (21-32) 05/05/18 06:16 Anion Gap 11 (8-16) 05/05/18 06:16 BUN 8 mg/dL (7-18) D 05/05/18 06:16 Creatinine 0.5 mg/dL (0.7-1.3) L 05/05/18 06:16 Creat Clearance w eGFR > 60 (>60) 05/05/18 06:16 Random Glucose 99 mg/dL (74-106) D 05/05/18 06:16 Calcium 8.1 mg/dL (8.5-10.1) L 05/05/18 06:16 Total Bilirubin 0.3 mg/dL (0.2-1.0) D 05/05/18 06:16 AST 104 U/L (15-37) H 05/05/18 06:16 ALT 44 U/L (12-78) 05/05/18 06:16 Alkaline Phosphatase 261 U/L (45-117) H 05/05/18 06:16 Total Protein 6.9 g/dl (6.4-8.2) D 05/05/18 06:16 Albumin 2.5 g/dl (3.4-5.0) L 05/05/18 06:16 CARDIAC ENZYMES Troponin I < 0.02 ng/ml (0.00-0.05) 04/16/18 02:15 Current Medications Generic Name Dose Route Start Last Admin Trade Name Freq PRN Reason Stop Dose Admin Amino Acids 30 ml 04/21/18 17:30 05/05/18 17:32 Prosource No Carb Liquid Pkt PO Not Given BID@0800,1730 YUKO Bisacodyl 10 mg 04/25/18 20:30 05/04/18 21:44 Dulcolax Suppository - RC 10 mg Q3D YUKO Administration Docusate Sodium 100 mg 04/23/18 14:00 05/05/18 14:36 Colace Liquid - PO Not Given TID YUKO Enoxaparin Sodium 40 mg 04/19/18 10:00 05/05/18 11:22 Lovenox - SQ 40 mg DAILY YUKO Administration Fentanyl 1 patch 05/02/18 14:00 05/05/18 16:10 Duragesic 50mcg Patch - TD 05/09/18 13:56 1 patch Q72H YUKO Administration IV Flush 10 ml 04/23/18 16:59 05/03/18 21:28 Sheri-Cath Flush IVPUSH 10 ml PRN PRN Administration FLUSH Sodium Chloride 1,000 mls @ 50 mls/hr 05/05/18 09:15 05/05/18 11:22 Normal Saline - IV 05/06/18 05:14 50 mls/hr ASDIR YUKO Administration Lidocaine/Aluminum/Magnesium/Simeth 5 ml 06/16/18 18:00 05/05/18 17:32 Magic Mouthwash *Sjr Formula* - MM Not Given Q6HPO [facility] Methylprednisolone Sodium Succinate 40 mg 05/05/18 12:16 05/05/18 12:58 Solu-Medrol - IVPUSH Not Given Q12H [facility] Miscellaneous 1 each 05/02/18 13:55 Duragesic Patch Waste TD PRN PRN PAIN Oxycodone HCl 5 mg 05/02/18 08:23 05/04/18 21:45 Roxicodone - PO 5 mg Q8H PRN Administration pain 7-10 Pantoprazole Sodium 40 mg 04/29/18 10:00 05/05/18 11:22 Protonix Packets For Oral Suspension - NGT 40 mg DAILY YUKO Administration Polyethylene Glycol 17 gm 04/30/18 10:00 05/05/18 11:37 Miralax (For Daily Use) - PO 17 gm DAILY YUKO Administration Senna 2 tab 04/27/18 22:00 04/29/18 22:09 Senna - PO 2 tab HS PRN Administration CONSTIPATION Home Medications Medication Instructions Recorded Calcitriol [Rocaltrol -] 0.25 mcg PEG BID #60 bot 02/14/18 Calcium 500Mg/Vit-D 200 Units 2 tab PO BID #120 tab 02/14/18 [Os-You 500+D -] FENTANYL 25mcg PATCH [DURAGESIC 1 patch TD Q72H 7 Days #1 box MDD 1 02/14/18 25mcg PATCH -] Laboratory Tests 04/19/18 04/20/18 04/21/18 06:30 07:10 07:00 Sodium 141 142 141 04/22/18 04/23/18 04/24/18 07:00 08:45 07:00 Sodium 141 144 143 04/25/18 04/28/18 04/30/18 07:45 07:05 05:15 Sodium 143 136 133 L 05/02/18 05/03/18 05/05/18 06:45 05:50 06:16 Sodium 133 L 133 L 131 L Pe: per resident's note ASSESSMENT AND PLAN: Patient is a 58 y/o gentleman with h/o laryngeal cancer s/p laryngectomy, chemo and radiation, DVT s/p IVC filter , who presented with SOB and AMS and was found to have acute hypoxic resp. failure and sepsis . # Acute hyponatremia: Patient is not getting tube feed, due to having leakage from the pegtube, IVF NS at 75cc/hr for now continue, will get GI involved # s/p hypoxic resp failure due to PNA and Large L pleural effusion, and sepsis which resolved. s/p IV antibiotic # H/o PE: has IVC filter. not on AC at home due to hematuria on AC . on Lovenox Px # occasional extremity jerks. witnessed by and other providers . discontinued Lexapro for possible EPSE # Abd distention :likely due to constipation. Improved cont bowel regimen # Laryngeal cancer, s/p larygnectomy. cont treatment with out pt onc. cont fentanyl patch ( increase dose due to continued pain ) DNR . waiting for placement once insurance approves
[2018-05-06] MEDS: MAG HYDROX/ALH/SMC/DPHA/LIDO 240 ML MOUTHWASH MM SCH ×4 (00:14→18:51)
[2018-05-06] MEDS: methylPREDNISolone NA SUCC 40 MG/1 ML VIAL IVPUSH SCH ×2 (00:25→13:15)
[2018-05-06] MEDS: DOCUSATE NA 100 MG/10 ML UNIT-DOSE CUPS PO SCH ×3 (05:26→21:24)
[2018-05-06] MEDS: AMINO ACIDS/PROTEIN HYDROLYS 30 ML LIQUID.PKT PO SCH ×2 (09:20→16:54)
[2018-05-06 10:22] LABS: ANION GAP 11 (8-16); BLOOD UREA NITROGEN 12 mg/dL (7-18); CALCIUM 7.2 mg/dL (8.5-10.1); CHLORIDE 95 mmol/L (98-107); CO2 25 mmol/L (21-32); CREATININE 0.6 mg/dL (0.7-1.3); GLUCOSE,RANDOM 77 mg/dL (74-106); POTASSIUM 5.1 mmol/L (3.5-5.1); SODIUM 131 mmol/L (136-145)
[2018-05-06] MEDS: PANTOPRAZOLE SOD 40 MG SUSPENSION PACKET NGT SCH (10:27)
[2018-05-06] MEDS: POLYETHYLENE GLYCOL 3350 119 GM BTL PO SCH (10:27)
--- NOTE | 2018-05-06 10:42 | PN ---
Physical Exam: SUBJECTIVE: Patient seen and examined Patient has no new complains. OBJECTIVE: Vital Signs Temperature 98.4 F 05/06/18 05:30 Pulse Rate 92 H 05/06/18 05:30 Respiratory Rate 20 05/06/18 05:30 Blood Pressure 119/86 05/06/18 05:30 O2 Sat by Pulse Oximetry (%) 97 05/05/18 21:00 GENERAL: The patient is awake, alert, and fully oriented, in no acute distress. HEAD: Normal with no signs of trauma. EYES: PERRL, extraocular movements intact, sclera anicteric, conjunctiva clear. ENT: positive for trach. collar . NECK: Trachea midline, full range of motion, supple. LUNGS: Breath sounds equal, clear to auscultation bilaterally, no wheezes, no crackles, no accessory muscle use. HEART: Regular rate and rhythm, S1, S2 without murmur, rub or gallop. ABDOMEN: Soft, nontender, nondistended, normoactive bowel sounds, no guarding, no rebound, positive for G- tube . EXTREMITIES: 2+ pulses, warm, well-perfused, no edema. NEUROLOGICAL: Cranial nerves II through XII grossly intact. Normal speech, gait not observed. PSYCH: Normal mood, normal affect. SKIN: Warm, dry, normal turgor, no rashes or lesions noted CBCD WBC 5.3 K/mm3 (4.0-10.0) 05/05/18 06:16 RBC 4.09 M/mm3 (4.00-5.60) D 05/05/18 06:16 Hgb 12.3 GM/dL (11.7-16.9) D 05/05/18 06:16 Hct 37.6 % (35.4-49) D 05/05/18 06:16 MCV 91.9 fl (80-96) 05/05/18 06:16 MCHC 32.6 g/dl (32.0-35.9) 05/05/18 06:16 RDW 16.2 % (11.9-15.9) H 05/05/18 06:16 Plt Count 371 K/MM3 (134-434) D 05/05/18 06:16 MPV 7.4 fl (7.5-11.1) L 05/05/18 06:16 CMP Sodium 131 mmol/L (136-145) L 05/06/18 08:40 Potassium 5.1 mmol/L (3.5-5.1) 05/06/18 08:40 Chloride 95 mmol/L (98-107) L 05/06/18 08:40 Carbon Dioxide 25 mmol/L (21-32) 05/06/18 08:40 Anion Gap 11 (8-16) 05/06/18 08:40 BUN 12 mg/dL (7-18) 05/06/18 08:40 Creatinine 0.6 mg/dL (0.7-1.3) L 05/06/18 08:40 Creat Clearance w eGFR > 60 (>60) 05/06/18 08:40 Random Glucose 77 mg/dL (74-106) D 05/06/18 08:40 Calcium 7.2 mg/dL (8.5-10.1) L 05/06/18 08:40 Total Bilirubin 0.3 mg/dL (0.2-1.0) D 05/05/18 06:16 AST 104 U/L (15-37) H 05/05/18 06:16 ALT 44 U/L (12-78) 05/05/18 06:16 Alkaline Phosphatase 261 U/L (45-117) H 05/05/18 06:16 Total Protein 6.9 g/dl (6.4-8.2) D 05/05/18 06:16 Albumin 2.5 g/dl (3.4-5.0) L 05/05/18 06:16 CARDIAC ENZYMES Troponin I < 0.02 ng/ml (0.00-0.05) 04/16/18 02:15 Current Medications Generic Name Dose Route Start Last Admin Trade Name Freq PRN Reason Stop Dose Admin Amino Acids 30 ml 04/21/18 17:30 05/06/18 09:20 Prosource No Carb Liquid Pkt PO Not Given BID@0800,1730 [facility] Bisacodyl 10 mg 04/25/18 20:30 05/04/18 21:44 Dulcolax Suppository - RC 10 mg Q3D YUKO Administration Docusate Sodium 100 mg 04/23/18 14:00 05/06/18 05:26 Colace Liquid - PO Not Given TID [facility] Enoxaparin Sodium 40 mg 04/19/18 10:00 05/05/18 11:22 Lovenox - SQ 40 mg DAILY YUKO Administration Fentanyl 1 patch 05/02/18 14:00 05/05/18 16:10 Duragesic 50mcg Patch - TD 05/09/18 13:56 1 patch Q72H YUKO Administration IV Flush 10 ml 04/23/18 16:59 05/03/18 21:28 Sheri-Cath Flush IVPUSH 10 ml PRN PRN Administration FLUSH Lidocaine/Aluminum/Magnesium/Simeth 5 ml 04/29/18 18:00 05/06/18 05:26 Magic Mouthwash *Sjr Formula* - MM Not Given Q6HPO YUKO Methylprednisolone Sodium Succinate 40 mg 05/05/18 12:16 05/06/18 00:25 Solu-Medrol - IVPUSH 40 mg Q12H YUKO Administration Miscellaneous 1 each 05/02/18 13:55 Duragesic Patch Waste TD PRN PRN PAIN Oxycodone HCl 5 mg 05/02/18 08:23 05/04/18 21:45 Roxicodone - PO 5 mg Q8H PRN Administration pain 7-10 Pantoprazole Sodium 40 mg 04/29/18 10:00 05/06/18 10:27 Protonix Packets For Oral Suspension - NGT Not Given DAILY [facility] Polyethylene Glycol 17 gm 04/30/18 10:00 05/06/18 10:27 Miralax (For Daily Use) - PO Not Given DAILY YUKO Senna 2 tab 04/27/18 22:00 04/29/18 22:09 Senna - PO 2 tab HS PRN Administration CONSTIPATION Home Medications Medication Instructions Recorded Calcitriol [Rocaltrol -] 0.25 mcg PEG BID #60 bot 02/14/18 Calcium 500Mg/Vit-D 200 Units 2 tab PO BID #120 tab 02/14/18 [Os-You 500+D -] FENTANYL 25mcg PATCH [DURAGESIC 1 patch TD Q72H 7 Days #1 box MDD 1 02/14/18 25mcg PATCH -] ASSESSMENT AND PLAN: Patient is a 58 y/o gentleman with h/o laryngeal cancer s/p laryngectomy, chemo and radiation, DVT s/p IVC filter , who presented with SOB and AMS and was found to have acute hypoxic resp. failure and sepsis . # Acute hyponatremia: will restart the G tube once GI evaluates the patient .continue IVF NS at 75cc/hr for now # s/p hypoxic resp failure due to PNA and Large L pleural effusion, and sepsis which resolved. s/p IV antibiotic # H/o PE: has IVC filter. not on AC at home due to hematuria on AC . on Lovenox Px # occasional extremity jerks. witnessed by and other providers . discontinued Lexapro for possible EPSE # Abd distention :likely due to constipation. Improved cont bowel regimen # Laryngeal cancer, s/p larygnectomy. cont treatment with out pt onc. cont fentanyl patch ( increase dose due to continued pain ) DNR . waiting for placement once insurance approves Visit type - Emergency Visit Emergency Visit: Yes ED Registration Date: 04/16/18 Care time: The patient presented to the Emergency Department on the above date and was hospitalized for further evaluation of their emergent condition. - New Patient This patient is new to me today: No - Critical Care Critical Care patient: No - Discharge Referral Referred to [facility] Med P.C.: No
[2018-05-06] MEDS: ENOXAPARIN NA (PORCINE) 40 MG/0.4 ML DISP.SYRIN SQ SCH (11:05)
--- NOTE | 2018-05-06 13:36 | PN ---
Progress Note (short form) - Note Progress Note: PULMONARY More somnolent today. No fevers recorded. Requiring 40% fiO2 saturating low 90s. Vital Signs Period Temp Pulse Resp BP Sys/Shrestha Pulse Ox Last 24 Hr 98.1 F-98.3 F 64-117 20-22 111-146/59-91 98 Gen: somnolent on trach collar Heart: RRR Lung: bilateral rhonchi Abd: soft, nontender Ext: no edema CBC, BMP 05/05/18 06:16 05/06/18 08:40 Active Medications Amino Acids (Prosource No Carb Liquid Pkt) 30 ml PO BID@0800,1730 [facility] Last Admin: 05/06/18 09:20 Dose: Not Given Bisacodyl (Dulcolax Suppository -) 10 mg RC Q3D [facility] Last Admin: 05/04/18 21:44 Dose: 10 mg Docusate Sodium (Colace Liquid -) 100 mg PO TID [facility] Last Admin: 05/06/18 05:26 Dose: Not Given Enoxaparin Sodium (Lovenox -) 40 mg SQ DAILY [facility] Last Admin: 05/06/18 11:05 Dose: 40 mg Fentanyl (Duragesic 50mcg Patch -) 1 patch TD Q72H [facility] Stop: 05/09/18 13:56 Last Admin: 05/05/18 16:10 Dose: 1 patch IV Flush (Sheri-Cath Flush) 10 ml IVPUSH PRN PRN PRN Reason: FLUSH Last Admin: 05/03/18 21:28 Dose: 10 ml Lidocaine/Aluminum/Magnesium/Simeth (Magic Mouthwash *Sjr Formula* -) 5 ml MM Q6HPO [facility] Last Admin: 05/06/18 12:24 Dose: Not Given Methylprednisolone Sodium Succinate (Solu-Medrol -) 40 mg IVPUSH Q12H [facility] Last Admin: 05/06/18 13:15 Dose: 40 mg Miscellaneous (Duragesic Patch Waste) 1 each TD PRN PRN PRN Reason: PAIN Oxycodone HCl (Roxicodone -) 5 mg PO Q8H PRN PRN Reason: pain 7-10 Last Admin: 05/04/18 21:45 Dose: 5 mg Pantoprazole Sodium (Protonix Packets For Oral Suspension -) 40 mg NGT DAILY [facility] Last Admin: 05/06/18 10:27 Dose: Not Given Polyethylene Glycol (Miralax (For Daily Use) -) 17 gm PO DAILY [facility] Last Admin: 05/06/18 10:27 Dose: Not Given Senna (Senna -) 2 tab PO HS PRN PRN Reason: CONSTIPATION Last Admin: 04/29/18 22:09 Dose: 2 tab A/P Acute on Chronic Respiratory failure Pneumonia Pleural Effusion LV Diastolic Dysfunction Laryngeal CA - completed antibiotics - enteral feeds - trach collar as tolerated - taper FiO2 to keep SpO2 >90% - medrol taper - inhaled bronchodilators - DVT prophylaxis
--- NOTE | 2018-05-06 17:25 | PN ---
Progress Note, Physician History of Present Illness: Pt seen and examined. Events noted. He is currently alert/responsive. Remains afebrile, without distress. Denies any specific complaints. is at bedside. - Current Medication List Current Medications: Active Medications Amino Acids (Prosource No Carb Liquid Pkt) 30 ml PO BID@0800,1730 REPLACED BY [facility] Last Admin: 05/06/18 16:54 Dose: Not Given Bisacodyl (Dulcolax Suppository -) 10 mg RC Q3D REPLACED BY [facility] Last Admin: 05/04/18 21:44 Dose: 10 mg Docusate Sodium (Colace Liquid -) 100 mg PO TID REPLACED BY [facility] Last Admin: 05/06/18 14:56 Dose: Not Given Enoxaparin Sodium (Lovenox -) 40 mg SQ DAILY [facility] Last Admin: 05/06/18 11:05 Dose: 40 mg Fentanyl (Duragesic 50mcg Patch -) 1 patch TD Q72H REPLACED BY [facility] Stop: 05/09/18 13:56 Last Admin: 05/05/18 16:10 Dose: 1 patch IV Flush (Sheri-Cath Flush) 10 ml IVPUSH PRN PRN PRN Reason: FLUSH Last Admin: 05/03/18 21:28 Dose: 10 ml Lidocaine/Aluminum/Magnesium/Simeth (Magic Mouthwash *Sjr Formula* -) 5 ml MM Q6HPO REPLACED BY [facility] Last Admin: 05/06/18 12:24 Dose: Not Given Methylprednisolone Sodium Succinate (Solu-Medrol -) 40 mg IVPUSH Q12H [facility]PLACED BY [facility] Last Admin: 05/06/18 13:15 Dose: 40 mg Miscellaneous (Duragesic Patch Waste) 1 each TD PRN PRN PRN Reason: PAIN Oxycodone HCl (Roxicodone -) 5 mg PO Q8H PRN PRN Reason: pain 7-10 Last Admin: 05/04/18 21:45 Dose: 5 mg Pantoprazole Sodium (Protonix Packets For Oral Suspension -) 40 mg NGT DAILY [facility] Last Admin: 05/06/18 10:27 Dose: Not Given Polyethylene Glycol (Miralax (For Daily Use) -) 17 gm PO DAILY [facility] Last Admin: 05/06/18 10:27 Dose: Not Given Senna (Senna -) 2 tab PO HS PRN PRN Reason: CONSTIPATION Last Admin: 04/29/18 22:09 Dose: 2 tab - Objective Vital Signs: Vital Signs Temperature 97.7 F 05/06/18 15:18 Pulse Rate 94 H 05/06/18 15:18 Respiratory Rate 20 05/06/18 15:18 Blood Pressure 122/94 05/06/18 15:18 O2 Sat by Pulse Oximetry (%) 97 05/05/18 21:00 Constitutional: Yes: No Distress, Calm Cardiovascular: Yes: Tachycardia Respiratory: Yes: Regular Gastrointestinal: Yes: Normal Bowel Sounds, Soft Edema: LLE: 2+ Integumentary: Yes: WNL Psychiatric: Yes: Alert Labs: CBC, BMP 05/05/18 06:16 05/06/18 08:40 INR, PTT INR 1.32 (0.82-1.09) H 04/18/18 06:00 Problem List - Problems (1) Sepsis Code(s): A41.9 - SEPSIS, UNSPECIFIED ORGANISM Qualifiers: Sepsis type: sepsis due to unspecified organism Qualified Code(s): A41.9 - Sepsis, unspecified organism (2) Pneumonia Code(s): J18.9 - PNEUMONIA, UNSPECIFIED ORGANISM Qualifiers: Pneumonia type: due to unspecified organism Laterality: unspecified laterality Lung location: unspecified part of lung Qualified Code(s): J18.9 - Pneumonia, unspecified organism Assessment/Plan 58 y.o. 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 s/p Severe Sepsis Acute Respiratory failure s/p tracheostomy/ on MV PNA - completed antibiotic treatment Pleural Effusion Metastatic laryngeal CA - pt afebrile, normal wbc - s/p course of antibiotics - continue current care
--- NOTE | 2018-05-06 17:46 | PN ---
Progress Note (short form) - Note Progress Note: Covering for Dr. Becerra who resumes care 05/08: Asked to evaluate leaking G-Tube On exam: G-Tube in place in LUQ. It is a replacement G-Tube with 20cc balloon. There was 20cc of fluid in the balloon. There was gauze above and under the external bolster with leaked gastric content and blood on the gauze. The gauze was removed. The external bolster was not flush up against the abdominal wall. There was some excoriated skin along the left lateral border of the G-Tube. There was no peripeg erythema or induration. There was no fluctuance. The stoma was examined. There was oozing of blood from the lateral border of the stoma. The G-Tube was flushed and was functioning properly. There was no blood aspiratred from the stomach. Tamponade was applied to the tract with a finger and there was improvement of the blood ooze. With the external bolster flush up against the abdominal wall there was no leakage. - OK to resulme tube feeds - Keep external bolster flush up against the abdominal wall - no dressing between external bolster and abdominal wall - Aspiration precautions. Keep head of bed elevated 35 degrees at all times
[2018-05-07] MEDS: MAG HYDROX/ALH/SMC/DPHA/LIDO 240 ML MOUTHWASH MM SCH ×4 (00:04→17:47)
[2018-05-07] MEDS: PORTA CATH FLUSH 10 ML IVPUSH PRN (00:37)
[2018-05-07] MEDS: methylPREDNISolone NA SUCC 40 MG/1 ML VIAL IVPUSH SCH ×2 (00:37→13:06)
[2018-05-07] MEDS: DOCUSATE NA 100 MG/10 ML UNIT-DOSE CUPS PO SCH ×3 (05:50→21:26)
[2018-05-07] MEDS: ENOXAPARIN NA (PORCINE) 40 MG/0.4 ML DISP.SYRIN SQ SCH (10:07)
[2018-05-07] MEDS: PANTOPRAZOLE SOD 40 MG SUSPENSION PACKET NGT SCH (10:07)
[2018-05-07] MEDS: POLYETHYLENE GLYCOL 3350 119 GM BTL PO SCH (10:08)
[2018-05-07] MEDS: AMINO ACIDS/PROTEIN HYDROLYS 30 ML LIQUID.PKT PO SCH ×2 (10:08→17:47)
--- NOTE | 2018-05-07 12:02 | PN ---
Progress Note (short form) - Note Progress Note: PULMONARY Awake, more alert today. No fevers recorded. Requiring 40% fiO2 saturating low 90s. Desaturates to 70% on room air. Vital Signs Period Temp Pulse Resp BP Sys/Shrestha Pulse Ox Last 24 Hr 97.6 F-98.1 F 81-96 20-23 122-133/88-94 95-98 Gen: mildly tachypneic on trach collar Heart: RRR Lung: bilateral rhonchi Abd: soft, nontender Ext: no edema CBC, BMP 05/05/18 06:16 05/06/18 08:40 Active Medications Amino Acids (Prosource No Carb Liquid Pkt) 30 ml PO BID@0800,1730 [facility] Last Admin: 05/07/18 10:08 Dose: 30 ml Bisacodyl (Dulcolax Suppository -) 10 mg RC Q3D [facility] Last Admin: 05/04/18 21:44 Dose: 10 mg Docusate Sodium (Colace Liquid -) 100 mg PO TID [facility] Last Admin: 05/07/18 05:50 Dose: 100 mg Enoxaparin Sodium (Lovenox -) 40 mg SQ DAILY [facility] Last Admin: 05/07/18 10:07 Dose: 40 mg Fentanyl (Duragesic 50mcg Patch -) 1 patch TD Q72H [facility] Stop: 05/09/18 13:56 Last Admin: 05/05/18 16:10 Dose: 1 patch IV Flush (Sheri-Cath Flush) 10 ml IVPUSH PRN PRN PRN Reason: FLUSH Last Admin: 05/07/18 00:37 Dose: 10 ml Lidocaine/Aluminum/Magnesium/Simeth (Magic Mouthwash *Sjr Formula* -) 5 ml MM Q6HPO [facility] Last Admin: 05/07/18 05:50 Dose: Not Given Methylprednisolone Sodium Succinate (Solu-Medrol -) 40 mg IVPUSH Q12H [facility] Last Admin: 05/07/18 00:37 Dose: 40 mg Miscellaneous (Duragesic Patch Waste) 1 each TD PRN PRN PRN Reason: PAIN Pantoprazole Sodium (Protonix Packets For Oral Suspension -) 40 mg NGT DAILY [facility] Last Admin: 05/07/18 10:07 Dose: 40 mg Polyethylene Glycol (Miralax (For Daily Use) -) 17 gm PO DAILY [facility] Last Admin: 05/07/18 10:08 Dose: 17 gm Senna (Senna -) 2 tab PO HS PRN PRN Reason: CONSTIPATION Last Admin: 04/29/18 22:09 Dose: 2 tab A/P Acute on Chronic Respiratory failure Pneumonia Pleural Effusion LV Diastolic Dysfunction Laryngeal CA - completed antibiotics - enteral feeds - trach collar as tolerated - taper FiO2 to keep SpO2 >90% - medrol taper - inhaled bronchodilators - DVT prophylaxis
--- NOTE | 2018-05-07 15:16 | PN ---
Teaching Attending Note Name of Resident: Lewis Ferguson ATTENDING PHYSICIAN STATEMENT I saw and evaluated the patient. I reviewed the resident's note and discussed the case with the resident. I agree with the resident's findings and plan as documented. SUBJECTIVE: OBJECTIVE: Vital Signs Temperature 98.6 F 05/07/18 15:03 Pulse Rate 102 H 05/07/18 15:03 Respiratory Rate 22 05/07/18 15:03 Blood Pressure 124/86 05/07/18 15:03 O2 Sat by Pulse Oximetry (%) 96 05/06/18 23:07 CBCD WBC 5.3 K/mm3 (4.0-10.0) 05/05/18 06:16 RBC 4.09 M/mm3 (4.00-5.60) D 05/05/18 06:16 Hgb 12.3 GM/dL (11.7-16.9) D 05/05/18 06:16 Hct 37.6 % (35.4-49) D 05/05/18 06:16 MCV 91.9 fl (80-96) 05/05/18 06:16 MCHC 32.6 g/dl (32.0-35.9) 05/05/18 06:16 RDW 16.2 % (11.9-15.9) H 05/05/18 06:16 Plt Count 371 K/MM3 (134-434) D 05/05/18 06:16 MPV 7.4 fl (7.5-11.1) L 05/05/18 06:16 CMP Sodium 131 mmol/L (136-145) L 05/06/18 08:40 Potassium 5.1 mmol/L (3.5-5.1) 05/06/18 08:40 Chloride 95 mmol/L (98-107) L 05/06/18 08:40 Carbon Dioxide 25 mmol/L (21-32) 05/06/18 08:40 Anion Gap 11 (8-16) 05/06/18 08:40 BUN 12 mg/dL (7-18) 05/06/18 08:40 Creatinine 0.6 mg/dL (0.7-1.3) L 05/06/18 08:40 Creat Clearance w eGFR > 60 (>60) 05/06/18 08:40 Random Glucose 77 mg/dL (74-106) D 05/06/18 08:40 Calcium 7.2 mg/dL (8.5-10.1) L 05/06/18 08:40 Total Bilirubin 0.3 mg/dL (0.2-1.0) D 05/05/18 06:16 AST 104 U/L (15-37) H 05/05/18 06:16 ALT 44 U/L (12-78) 05/05/18 06:16 Alkaline Phosphatase 261 U/L (45-117) H 05/05/18 06:16 Total Protein 6.9 g/dl (6.4-8.2) D 05/05/18 06:16 Albumin 2.5 g/dl (3.4-5.0) L 05/05/18 06:16 CARDIAC ENZYMES Troponin I < 0.02 ng/ml (0.00-0.05) 04/16/18 02:15 Current Medications Generic Name Dose Route Start Last Admin Trade Name Freq PRN Reason Stop Dose Admin Amino Acids 30 ml 04/21/18 17:30 05/07/18 10:08 Prosource No Carb Liquid Pkt PO 30 ml BID@0800,1730 [facility]UKO Administration Bisacodyl 10 mg 04/25/18 20:30 05/04/18 21:44 Dulcolax Suppository - RC 10 mg Q3D [facility] Administration Docusate Sodium 100 mg 04/23/18 14:00 05/07/18 05:50 Colace Liquid - PO 100 mg TID [facility]UKO Administration Enoxaparin Sodium 40 mg 04/19/18 10:00 05/07/18 10:07 Lovenox - SQ 40 mg DAILY [facility] Administration Fentanyl 1 patch 05/02/18 14:00 05/05/18 16:10 Duragesic 50mcg Patch - TD 05/09/18 13:56 1 patch Q72H [facility] Administration IV Flush 10 ml 04/23/18 16:59 05/07/18 00:37 Sheri-Cath Flush IVPUSH 10 ml PRN PRN Administration FLUSH Lidocaine/Aluminum/Magnesium/Simeth 5 ml 04/29/18 18:00 05/07/18 12:55 Magic Mouthwash *Sjr Formula* - MM Not Given Q6HPO YUKO Methylprednisolone Sodium Succinate 40 mg 05/05/18 12:16 05/07/18 13:06 Solu-Medrol - IVPUSH 40 mg Q12H YUKO Administration Miscellaneous 1 each 05/02/18 13:55 Duragesic Patch Waste TD PRN PRN PAIN Pantoprazole Sodium 40 mg 04/29/18 10:00 05/07/18 10:07 Protonix Packets For Oral Suspension - NGT 40 mg DAILY YUKO Administration Polyethylene Glycol 17 gm 04/30/18 10:00 05/07/18 10:08 Miralax (For Daily Use) - PO 17 gm DAILY YUKO Administration Senna 2 tab 04/27/18 22:00 04/29/18 22:09 Senna - PO 2 tab HS PRN Administration CONSTIPATION Home Medications Medication Instructions Recorded Calcitriol [Rocaltrol -] 0.25 mcg PEG BID #60 bot 02/14/18 Calcium 500Mg/Vit-D 200 Units 2 tab PO BID #120 tab 02/14/18 [Os-You 500+D -] FENTANYL 25mcg PATCH [DURAGESIC 1 patch TD Q72H 7 Days #1 box MDD 1 02/14/18 25mcg PATCH -] ASSESSMENT AND PLAN:
--- NOTE | 2018-05-07 18:43 | PN ---
<Lewis Ferguson - Last Filed: 05/07/18 18:49> Physical Exam: SUBJECTIVE: Patient seen and examined lying comfortably in bed denies sob. on tracheostomy with oxygen tent. no events overnight. OBJECTIVE: Vital Signs Period Temp Pulse Resp BP Sys/Shrestha Pulse Ox Last 24 Hr 97.6 F-98.6 F 81-105 21-23 124-133/86-94 95-98 GENERAL: awake, alert, HEENT: SEVEN, sclera anicteric, dry mucosa, NECK: Tracheostomy site intact without secretions LUNGS: CTA b/l. No accessory muscle use. HEART: normal S1 and S2 without murmur ABDOMEN: Soft, nondistended, nontender, normoactive bowel sounds, no guarding, no rebound, no masses. peg tube in situ no sokage. MUSCULOSKELETAL: No CVA tenderness. UPPER EXTREMITIES: 2+ DP pulses, warm, well-perfused. no edema SKIN: Warm, dry, Active Medications Generic Name Dose Route Start Last Admin Trade Name Freq PRN Reason Stop Dose Admin Amino Acids 30 ml 04/21/18 17:30 05/07/18 17:47 Prosource No Carb Liquid Pkt PO 30 ml BID@0800,1730 YUKO Administration Bisacodyl 10 mg 04/25/18 20:30 05/04/18 21:44 Dulcolax Suppository - RC 10 mg Q3D YUKO Administration Docusate Sodium 100 mg 04/23/18 14:00 05/07/18 17:47 Colace Liquid - PO 100 mg TID YUKO Administration Enoxaparin Sodium 40 mg 04/19/18 10:00 05/07/18 10:07 Lovenox - SQ 40 mg DAILY YUKO Administration Fentanyl 1 patch 05/02/18 14:00 05/05/18 16:10 Duragesic 50mcg Patch - TD 05/09/18 13:56 1 patch Q72H YUKO Administration IV Flush 10 ml 04/23/18 16:59 05/07/18 00:37 Sheri-Cath Flush IVPUSH 10 ml PRN PRN Administration FLUSH Lidocaine/Aluminum/Magnesium/Simeth 5 ml 04/29/18 18:00 05/07/18 17:47 Magic Mouthwash *Sjr Formula* - MM Not Given Q6HPO YUKO Methylprednisolone Sodium Succinate 40 mg 05/05/18 12:16 05/07/18 13:06 Solu-Medrol - IVPUSH 40 mg Q12H YUKO Administration Miscellaneous 1 each 05/02/18 13:55 Duragesic Patch Waste TD PRN PRN PAIN Pantoprazole Sodium 40 mg 04/29/18 10:00 05/07/18 10:07 Protonix Packets For Oral Suspension - NGT 40 mg DAILY YUKO Administration Polyethylene Glycol 17 gm 04/30/18 10:00 05/07/18 10:08 Miralax (For Daily Use) - PO 17 gm DAILY YUKO Administration Senna 2 tab 04/27/18 22:00 04/29/18 22:09 Senna - PO 2 tab HS PRN Administration CONSTIPATION ASSESSMENT/PLAN: 1) hyponatremia: na 131 on tube feed monitor sr na rate of increase 0.5 to 1meq/hr but not more than 10 in 24 hour. no change in mental status 2) s/p hypoxic resp failure (due to PNA and Large L pleural effusion, and sepsis ) Resolved. keep head end elevated take aspiration precautions. 3) H/o PE: has IVC filter. not on AC at home due to hematuria on AC . on Lovenox Px 4) occasional extremity jerks. . discontinued Lexapro for possible EPSE 5) Abd distention : likely due to constipation. Improved cont bowel regimen 5) GTube leak Gi consult appreciated got fixed back on tube feed jevity 1.5 6) Laryngeal cancer, s/p larygnectomy. on fentanyl patch for pain control Fluid: through G tube electrolyte: monitor sr na nutrition: tube feed dvt pro lovenox 40 sq Visit type - Emergency Visit Emergency Visit: Yes ED Registration Date: 04/16/18 Care time: The patient presented to the Emergency Department on the above date and was hospitalized for further evaluation of their emergent condition. - New Patient This patient is new to me today: No - Critical Care Critical Care patient: No <Rasta Weinstein - Last Filed: 05/07/18 19:01> Physical Exam: : Agree with the resident's note. Tolerating the feed. Vital Signs Temperature 98.1 F 05/07/18 18:03 Pulse Rate 101 H 05/07/18 18:03 Respiratory Rate 22 05/07/18 18:03 Blood Pressure 124/88 05/07/18 18:03 O2 Sat by Pulse Oximetry (%) 96 05/07/18 13:15 CBCD WBC 5.3 K/mm3 (4.0-10.0) 05/05/18 06:16 RBC 4.09 M/mm3 (4.00-5.60) D 05/05/18 06:16 Hgb 12.3 GM/dL (11.7-16.9) D 05/05/18 06:16 Hct 37.6 % (35.4-49) D 05/05/18 06:16 MCV 91.9 fl (80-96) 05/05/18 06:16 MCHC 32.6 g/dl (32.0-35.9) 05/05/18 06:16 RDW 16.2 % (11.9-15.9) H 05/05/18 06:16 Plt Count 371 K/MM3 (134-434) D 05/05/18 06:16 MPV 7.4 fl (7.5-11.1) L 05/05/18 06:16 CMP Sodium 131 mmol/L (136-145) L 05/06/18 08:40 Potassium 5.1 mmol/L (3.5-5.1) 05/06/18 08:40 Chloride 95 mmol/L (98-107) L 05/06/18 08:40 Carbon Dioxide 25 mmol/L (21-32) 05/06/18 08:40 Anion Gap 11 (8-16) 05/06/18 08:40 BUN 12 mg/dL (7-18) 05/06/18 08:40 Creatinine 0.6 mg/dL (0.7-1.3) L 05/06/18 08:40 Creat Clearance w eGFR > 60 (>60) 05/06/18 08:40 Random Glucose 77 mg/dL (74-106) D 05/06/18 08:40 Calcium 7.2 mg/dL (8.5-10.1) L 05/06/18 08:40 Total Bilirubin 0.3 mg/dL (0.2-1.0) D 05/05/18 06:16 AST 104 U/L (15-37) H 05/05/18 06:16 ALT 44 U/L (12-78) 05/05/18 06:16 Alkaline Phosphatase 261 U/L (45-117) H 05/05/18 06:16 Total Protein 6.9 g/dl (6.4-8.2) D 05/05/18 06:16 Albumin 2.5 g/dl (3.4-5.0) L 05/05/18 06:16 CARDIAC ENZYMES Troponin I < 0.02 ng/ml (0.00-0.05) 04/16/18 02:15 Active Medications Generic Name Dose Route Start Last Admin Trade Name Freq PRN Reason Stop Dose Admin Amino Acids 30 ml 04/21/18 17:30 05/07/18 17:47 Prosource No Carb Liquid Pkt PO 30 ml BID@0800,1730 YUKO Administration Bisacodyl 10 mg 04/25/18 20:30 05/04/18 21:44 Dulcolax Suppository - RC 10 mg Q3D YUKO Administration Docusate Sodium 100 mg 04/23/18 14:00 05/07/18 17:47 Colace Liquid - PO 100 mg TID YUKO Administration Enoxaparin Sodium 40 mg 04/19/18 10:00 05/07/18 10:07 Lovenox - SQ 40 mg DAILY YUKO Administration Fentanyl 1 patch 05/02/18 14:00 05/05/18 16:10 Duragesic 50mcg Patch - TD 05/09/18 13:56 1 patch Q72H YUKO Administration IV Flush 10 ml 04/23/18 16:59 05/07/18 00:37 Sheri-Cath Flush IVPUSH 10 ml PRN PRN Administration FLUSH Lidocaine/Aluminum/Magnesium/Simeth 5 ml 04/29/18 18:00 05/07/18 17:47 Magic Mouthwash *Sjr Formula* - MM Not Given Q6HPO YUKO Methylprednisolone Sodium Succinate 40 mg 05/05/18 12:16 05/07/18 13:06 Solu-Medrol - IVPUSH 40 mg Q12H YUKO Administration Miscellaneous 1 each 05/02/18 13:55 Duragesic Patch Waste TD PRN PRN PAIN Pantoprazole Sodium 40 mg 04/29/18 10:00 05/07/18 10:07 Protonix Packets For Oral Suspension - NGT 40 mg DAILY YUKO Administration Polyethylene Glycol 17 gm 04/30/18 10:00 05/07/18 10:08 Miralax (For Daily Use) - PO 17 gm DAILY YUKO Administration Senna 2 tab 04/27/18 22:00 04/29/18 22:09 Senna - PO 2 tab HS PRN Administration CONSTIPATION
[2018-05-07] MEDS: BISACODYL 10 MG SUPP.RECT RC SCH (21:26)
[2018-05-08] MEDS: MAG HYDROX/ALH/SMC/DPHA/LIDO 240 ML MOUTHWASH MM SCH ×4 (00:04→18:27)
[2018-05-08] MEDS: methylPREDNISolone NA SUCC 40 MG/1 ML VIAL IVPUSH SCH ×2 (00:14→12:27)
[2018-05-08] MEDS: PORTA CATH FLUSH 10 ML IVPUSH PRN ×2 (00:14→14:18)
[2018-05-08] MEDS: DOCUSATE NA 100 MG/10 ML UNIT-DOSE CUPS PO SCH ×3 (05:01→21:23)
--- NOTE | 2018-05-08 08:28 | PN ---
Progress Note (short form) - Note Progress Note: Pt. was seen briefly as he did not desire any intervention at this time. His affect was dysthymic and although he was offered to listen to music made available by this practitioner, he was not receptive to it. He also was asked if he would like the writing pad to share his feelings, he just closed his eyes and did not indicate a desire for it. Problem List - Problems (1) Depressive disorder due to separate medical condition Code(s): F06.30 - MOOD DISORDER DUE TO KNOWN PHYSIOLOGICAL CONDITION, UNSP (2) Somatic symptom disorder, persistent, moderate Code(s): F45.1 - UNDIFFERENTIATED SOMATOFORM DISORDER
[2018-05-08] MEDS ORDERED: PT OWN MED DRAWER 7, Y5N ONE (09:58)
[2018-05-08] MEDS: PANTOPRAZOLE SOD 40 MG SUSPENSION PACKET NGT SCH (10:02)
[2018-05-08] MEDS: AMINO ACIDS/PROTEIN HYDROLYS 30 ML LIQUID.PKT PO SCH ×2 (10:02→18:27)
[2018-05-08] MEDS: POLYETHYLENE GLYCOL 3350 119 GM BTL PO SCH (10:02)
--- NOTE | 2018-05-08 12:10 | PN ---
Progress Note (short form) - Note Progress Note: Patient seen and examined on the vent floor. Awake and interactive in NAD on Trach collar. Intake & Output 05/05/18 05/06/18 05/07/18 05/08/18 23:59 23:59 23:59 23:59 Intake Total 350 880 300 530 Output Total 200 1000 900 Balance 150 -120 -600 530 Last Vital Signs Temp Pulse Resp BP Pulse Ox 97.7 F 94 H 18 119/85 100 05/08/18 10:00 05/08/18 10:00 05/08/18 10:00 05/08/18 10:00 05/07/18 21:00 Active Medications Amino Acids (Prosource No Carb Liquid Pkt) 30 ml PO BID@0800,1730 [facility] Last Admin: 05/08/18 10:02 Dose: 30 ml Bisacodyl (Dulcolax Suppository -) 10 mg RC Q3D [facility] Last Admin: 05/07/18 21:26 Dose: 10 mg Docusate Sodium (Colace Liquid -) 100 mg PO TID [facility] Last Admin: 05/08/18 05:01 Dose: Not Given Fentanyl (Duragesic 50mcg Patch -) 1 patch TD Q72H [facility] Stop: 05/09/18 13:56 Last Admin: 05/05/18 16:10 Dose: 1 patch IV Flush (Sheri-Cath Flush) 10 ml IVPUSH PRN PRN PRN Reason: FLUSH Last Admin: 05/08/18 00:14 Dose: 10 ml Lidocaine/Aluminum/Magnesium/Simeth (Magic Mouthwash *Sjr Formula* -) 5 ml MM Q6HPO [facility] Last Admin: 05/08/18 05:01 Dose: Not Given Methylprednisolone Sodium Succinate (Solu-Medrol -) 40 mg IVPUSH Q12H [facility] Last Admin: 05/08/18 00:14 Dose: 40 mg Miscellaneous (Duragesic Patch Waste) 1 each TD PRN PRN PRN Reason: PAIN Pantoprazole Sodium (Protonix Packets For Oral Suspension -) 40 mg NGT DAILY [facility] Last Admin: 05/08/18 10:02 Dose: 40 mg Polyethylene Glycol (Miralax (For Daily Use) -) 17 gm PO DAILY [facility] Last Admin: 05/08/18 10:02 Dose: 17 gm Senna (Senna -) 2 tab PO HS PRN PRN Reason: CONSTIPATION Last Admin: 04/29/18 22:09 Dose: 2 tab GENERAL: Awake and alert on Trach collar HEENT: Trach intact, dry mucosa w/o exudates NECK: Tracheostomy site noted with no overt secretions LUNGS: Diminished Left breath sounds, scattered rhonchi on the right, Left pleural catheter HEART: Tachycardic with regular rhythm, normal S1 and S2 without murmur ABDOMEN: Soft, nontender, not distended, normoactive bowel sounds, no guarding, no rebound, no masses. No hepatomegaly MUSCULOSKELETAL: No CVA tenderness. UPPER EXTREMITIES: 2+ DP pulses, warm, well-perfused. No peripheral edema. NEUROLOGICAL: Cannot thoroughly assess due to agitation, confusion, nonverbal SKIN: Warm, dry, no rashes or lesions noted, No sacral decubiti appreciated IMP: Acute on chronic respiratory failure Sepsis R/O aspiration PNA Neutropenia Malnutrition Laryngeal CA At this point do not suspect Mesothelioma Trach collar as tolerated Off ABX per ID VTE prophylaxis DNR /DNI Follow imaging as an outpatient Would benefit from short term rehab due to significant weight loss/ deconditioning D/C planning Dr Sims
[2018-05-08] MEDS: fentaNYL 50mcg/hr PATCH.TD72 TD SCH (14:14)
[2018-05-08] MEDS: ENOXAPARIN NA (PORCINE) 40 MG/0.4 ML DISP.SYRIN SQ SCH (14:14)
[2018-05-08] MEDS: FENTANYL PATCH WASTE TD PRN (14:15)
--- NOTE | 2018-05-08 21:19 | PN ---
Physical Exam: SUBJECTIVE: Pt seems like he does not want to talk. No pain per pt's nods. OBJECTIVE: Vital Signs Period Temp Pulse Resp BP Sys/Shrestha Pulse Ox Last 24 Hr 97.1 F-97.7 F 81-100 18-22 119-121/75-88 96-100 GENERAL: NAD, awake, alert, thin-appearing HEENT: SEVEN, sclera anicteric, dry mucosa, temporal wasting noted NECK: Tracheostomy site intact without secretions LUNGS: CTA b/l. No accessory muscle use. Trach collar with blow-by oxygen HEART: RRR, normal S1 and S2 without murmur ABDOMEN: Soft, nondistended, nontender, normoactive bowel sounds, no guarding, no rebound, no masses. No hepatomegaly. MUSCULOSKELETAL: No CVA tenderness. UPPER EXTREMITIES: 2+ DP pulses, warm, well-perfused. no edema Psych: Depressed mood SKIN: Warm, dry, no rashes or lesions noted Laboratory Results - last 24 hr 05/08/18 05/08/18 17:30 17:30 Urine Osmolality 653 Ur Random Sodium 145 Active Medications Generic Name Dose Route Start Last Admin Trade Name Freq PRN Reason Stop Dose Admin Amino Acids 30 ml 04/21/18 17:30 05/08/18 18:27 Prosource No Carb Liquid Pkt PO 30 ml BID@0800,1730 YUKO Administration Bisacodyl 10 mg 04/25/18 20:30 05/07/18 21:26 Dulcolax Suppository - RC 10 mg Q3D YUKO Administration Docusate Sodium 100 mg 04/23/18 14:00 05/08/18 14:14 Colace Liquid - PO 100 mg TID YUKO Administration Enoxaparin Sodium 40 mg 05/08/18 12:45 05/08/18 14:14 Lovenox - SQ 40 mg DAILY YUKO Administration Fentanyl 1 patch 05/02/18 14:00 05/08/18 14:14 Duragesic 50mcg Patch - TD 05/09/18 13:56 1 patch Q72H YUKO Administration IV Flush 10 ml 04/23/18 16:59 05/08/18 14:18 Sheri-Cath Flush IVPUSH 10 ml PRN PRN Administration FLUSH Lidocaine/Aluminum/Magnesium/Simeth 5 ml 04/29/18 18:00 05/08/18 18:27 Magic Mouthwash *Sjr Formula* - MM Not Given Q6HPO YUKO Methylprednisolone Sodium Succinate 40 mg 05/05/18 12:16 05/08/18 12:27 Solu-Medrol - IVPUSH 40 mg Q12H YUKO Administration Miscellaneous 1 each 05/02/18 13:55 05/08/18 14:15 Duragesic Patch Waste TD 1 each PRN PRN Administration PAIN Pantoprazole Sodium 40 mg 04/29/18 10:00 05/08/18 10:02 Protonix Packets For Oral Suspension - NGT 40 mg DAILY YUKO Administration Polyethylene Glycol 17 gm 04/30/18 10:00 05/08/18 10:02 Miralax (For Daily Use) - PO 17 gm DAILY YUKO Administration Senna 2 tab 04/27/18 22:00 04/29/18 22:09 Senna - PO 2 tab HS PRN Administration CONSTIPATION ASSESSMENT/PLAN: 1) Abdominal Distention --Likely 2/2 to ileus from pain medication --Colace liquid on board --Senna 2 tabs HS --Dulcolax suppository q3Day --SSE as needed 2) Acute hypoxic respiratory dysfunction --Weaned off ventilator; tolerating trach collar at 40% --Continue to wean off high O2 percentage as tolerated --Maintain SpO2 >90% --Aspiration precautions: HOB elevated --Continue Fentanyl 50mcg Patch 3) Severe sepsis 2/2 to aspiration PNA --Resolved --ID on board: --Completed 5 days of IV ABX 4) ? Tardive dyskinesia --Resolved once off Lexapro 5) GTube leak --GI saw over weekend; no further leaks at this point with GTube further adjusted FEN: Fluids: None Electrolyte abnormalities: Pseudohypocalcemia Nutrition: Continue Jevity feeds, add Prosources 30mg BID PPX: DVT - Lovenox 40mg qDaily Code Status: DNR Dispo: Awaiting placement; continue to wean O2 requirements Case discussed with Dr. Js Breaux, DO - IM PGY-1 Visit type - Emergency Visit Emergency Visit: No - New Patient This patient is new to me today: No - Critical Care Critical Care patient: No
[2018-05-09] MEDS: MAG HYDROX/ALH/SMC/DPHA/LIDO 240 ML MOUTHWASH MM SCH ×5 (00:20→23:12)
[2018-05-09] MEDS: methylPREDNISolone NA SUCC 40 MG/1 ML VIAL IVPUSH SCH ×2 (01:09→09:06)
[2018-05-09] MEDS ORDERED: ACETAMINOPHEN 325 MG TABLET (FP) PO ONE (02:12)
[2018-05-09] MEDS ORDERED: ACETAMINOPHEN 325 MG TABLET (FP) ONE (02:27)
[2018-05-09] MEDS: DOCUSATE NA 100 MG/10 ML UNIT-DOSE CUPS PO SCH ×3 (06:44→21:41)
[2018-05-09] MEDS: POLYETHYLENE GLYCOL 3350 119 GM BTL PO SCH (09:05)
[2018-05-09] MEDS: AMINO ACIDS/PROTEIN HYDROLYS 30 ML LIQUID.PKT PO SCH ×2 (09:05→17:30)
[2018-05-09] MEDS: PANTOPRAZOLE SOD 40 MG SUSPENSION PACKET NGT SCH (09:06)
[2018-05-09] MEDS: ENOXAPARIN NA (PORCINE) 40 MG/0.4 ML DISP.SYRIN SQ SCH (09:06)
--- NOTE | 2018-05-09 12:02 | PN ---
Progress Note (short form) - Note Progress Note: No significant change in overall condition. NAD on Trach collar. No acute events overnight. Intake & Output 05/06/18 05/07/18 05/08/18 05/09/18 23:59 23:59 23:59 23:59 Intake Total 446 825 5242 660 Output Total 1000 900 500 200 Balance -120 -600 710 460 Last Vital Signs Temp Pulse Resp BP Pulse Ox 97.8 F 96 H 18 121/82 99 05/09/18 08:00 05/09/18 10:50 05/09/18 08:00 05/09/18 08:00 05/09/18 10:50 Active Medications Amino Acids (Prosource No Carb Liquid Pkt) 30 ml PO BID@0800,1730 [facility] Last Admin: 05/09/18 09:05 Dose: 30 ml Bisacodyl (Dulcolax Suppository -) 10 mg RC Q3D [facility] Last Admin: 05/07/18 21:26 Dose: 10 mg Docusate Sodium (Colace Liquid -) 100 mg PO TID [facility] Last Admin: 05/09/18 06:44 Dose: 100 mg Enoxaparin Sodium (Lovenox -) 40 mg SQ DAILY [facility] Last Admin: 05/09/18 09:06 Dose: 40 mg Fentanyl (Duragesic 50mcg Patch -) 1 patch TD Q72H [facility] Stop: 05/09/18 13:56 Last Admin: 05/08/18 14:14 Dose: 1 patch IV Flush (Sheri-Cath Flush) 10 ml IVPUSH PRN PRN PRN Reason: FLUSH Last Admin: 05/08/18 14:18 Dose: 10 ml Lidocaine/Aluminum/Magnesium/Simeth (Magic Mouthwash *Sjr Formula* -) 5 ml MM Q6HPO [facility] Last Admin: 05/09/18 06:44 Dose: Not Given Methylprednisolone Sodium Succinate (Solu-Medrol -) 40 mg IVPUSH DAILY [facility] Last Admin: 05/09/18 09:06 Dose: 40 mg Miscellaneous (Duragesic Patch Waste) 1 each TD PRN PRN PRN Reason: PAIN Last Admin: 05/08/18 14:15 Dose: 1 each Pantoprazole Sodium (Protonix Packets For Oral Suspension -) 40 mg NGT DAILY [facility] Last Admin: 05/09/18 09:06 Dose: 40 mg Polyethylene Glycol (Miralax (For Daily Use) -) 17 gm PO DAILY [facility] Last Admin: 05/09/18 09:05 Dose: 17 gm Senna (Senna -) 2 tab PO HS PRN PRN Reason: CONSTIPATION Last Admin: 04/29/18 22:09 Dose: 2 tab GENERAL: Awake and alert on Trach collar HEENT: Trach intact, dry mucosa w/o exudates NECK: Tracheostomy site noted with no overt secretions LUNGS: Diminished Left breath sounds, scattered rhonchi on the right, Left pleural catheter HEART: Tachycardic with regular rhythm, normal S1 and S2 without murmur ABDOMEN: Soft, nontender, not distended, normoactive bowel sounds, no guarding, no rebound, no masses. No hepatomegaly MUSCULOSKELETAL: No CVA tenderness. UPPER EXTREMITIES: 2+ DP pulses, warm, well-perfused. No peripheral edema. NEUROLOGICAL: Cannot thoroughly assess due to agitation, confusion, nonverbal SKIN: Warm, dry, no rashes or lesions noted Laboratory Results - last 24 hr 05/08/18 05/08/18 17:30 17:30 Urine Osmolality 653 Ur Random Sodium 145 IMP: Acute on chronic respiratory failure Sepsis R/O aspiration PNA Neutropenia Malnutrition Laryngeal CA At this point do not suspect Mesothelioma Can change to short Prednisone taper Trach collar as tolerated Off ABX per ID VTE prophylaxis DNR /DNI Follow imaging as an outpatient Would benefit from short term rehab due to significant weight loss/ deconditioning D/C planning Dr Sims
--- NOTE | 2018-05-09 15:16 | PN ---
Progress Note, Physician History of Present Illness: on trach collar no resp distress - Current Medication List Current Medications: Active Medications Amino Acids (Prosource No Carb Liquid Pkt) 30 ml PO BID@0800,1730 [facility]PLACED BY [facility] Last Admin: 05/09/18 09:05 Dose: 30 ml Bisacodyl (Dulcolax Suppository -) 10 mg RC Q3D [facility]PL[facility] Last Admin: 05/07/18 21:26 Dose: 10 mg Docusate Sodium (Colace Liquid -) 100 mg PO TID [facility]PL[facility] BY [facility] Last Admin: 05/09/18 14:32 Dose: Not Given Enoxaparin Sodium (Lovenox -) 40 mg SQ DAILY [facility] Last Admin: 05/09/18 09:06 Dose: 40 mg IV Flush (Sheri-Cath Flush) 10 ml IVPUSH PRN PRN PRN Reason: FLUSH Last Admin: 05/08/18 14:18 Dose: 10 ml Lidocaine/Aluminum/Magnesium/Simeth (Magic Mouthwash *Sjr Formula* -) 5 ml MM Q6HPO [facility] Last Admin: 05/09/18 12:09 Dose: Not Given Methylprednisolone Sodium Succinate (Solu-Medrol -) 40 mg IVPUSH DAILY [facility] Last Admin: 05/09/18 09:06 Dose: 40 mg Miscellaneous (Duragesic Patch Waste) 1 each TD PRN PRN PRN Reason: PAIN Last Admin: 05/08/18 14:15 Dose: 1 each Pantoprazole Sodium (Protonix Packets For Oral Suspension -) 40 mg NGT DAILY [facility] Last Admin: 05/09/18 09:06 Dose: 40 mg Polyethylene Glycol (Miralax (For Daily Use) -) 17 gm PO DAILY [facility] Last Admin: 05/09/18 09:05 Dose: 17 gm Senna (Senna -) 2 tab PO HS PRN PRN Reason: CONSTIPATION Last Admin: 04/29/18 22:09 Dose: 2 tab - Objective Vital Signs: Vital Signs Temperature 98.3 F 05/09/18 15:00 Pulse Rate 98 H 05/09/18 15:00 Respiratory Rate 18 05/09/18 15:00 Blood Pressure 116/84 05/09/18 15:00 O2 Sat by Pulse Oximetry (%) 99 05/09/18 12:45 Constitutional: Yes: No Distress, Calm Cardiovascular: Yes: Regular Rate and Rhythm Respiratory: Yes: Regular, CTA Bilaterally Gastrointestinal: Yes: Normal Bowel Sounds, Soft Musculoskeletal: Yes: WNL Extremities: Yes: WNL Neurological: Yes: Alert, Oriented Psychiatric: Yes: Alert, Oriented Labs: CBC, BMP 05/05/18 06:16 05/06/18 08:40 INR, PTT INR 1.32 (0.82-1.09) H 04/18/18 06:00 Assessment/Plan Problem List - Problems (1) Sepsis Code(s): A41.9 - SEPSIS, UNSPECIFIED ORGANISM Qualifiers: Sepsis type: sepsis due to unspecified organism Qualified Code(s): A41.9 - Sepsis, unspecified organism (2) Pneumonia Code(s): J18.9 - PNEUMONIA, UNSPECIFIED ORGANISM Qualifiers: Pneumonia type: due to unspecified organism Laterality: unspecified laterality Lung location: unspecified part of lung Qualified Code(s): J18.9 - Pneumonia, unspecified organism resp failure hypoxia Assessment/Plan 58 y.o. 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
--- NOTE | 2018-05-09 18:57 | PN ---
Progress Note, Physician History of Present Illness: Called for leaking G-tube. - Current Medication List Current Medications: Active Medications Amino Acids (Prosource No Carb Liquid Pkt) 30 ml PO BID@0800,1730 [facility] Last Admin: 05/09/18 17:30 Dose: 30 ml Bisacodyl (Dulcolax Suppository -) 10 mg RC Q3D [facility] Last Admin: 05/07/18 21:26 Dose: 10 mg Docusate Sodium (Colace Liquid -) 100 mg PO TID [facility] Last Admin: 05/09/18 14:32 Dose: Not Given Enoxaparin Sodium (Lovenox -) 40 mg SQ DAILY [facility] Last Admin: 05/09/18 09:06 Dose: 40 mg IV Flush (Sheri-Cath Flush) 10 ml IVPUSH PRN PRN PRN Reason: FLUSH Last Admin: 05/08/18 14:18 Dose: 10 ml Lidocaine/Aluminum/Magnesium/Simeth (Magic Mouthwash *Sjr Formula* -) 5 ml MM Q6HPO [facility] Last Admin: 05/09/18 12:09 Dose: Not Given Methylprednisolone Sodium Succinate (Solu-Medrol -) 40 mg IVPUSH DAILY [facility] Last Admin: 05/09/18 09:06 Dose: 40 mg Miscellaneous (Duragesic Patch Waste) 1 each TD PRN PRN PRN Reason: PAIN Last Admin: 05/08/18 14:15 Dose: 1 each Pantoprazole Sodium (Protonix Packets For Oral Suspension -) 40 mg NGT DAILY [facility] Last Admin: 05/09/18 09:06 Dose: 40 mg Polyethylene Glycol (Miralax (For Daily Use) -) 17 gm PO DAILY [facility] Last Admin: 05/09/18 09:05 Dose: 17 gm Senna (Senna -) 2 tab PO HS PRN PRN Reason: CONSTIPATION Last Admin: 04/29/18 22:09 Dose: 2 tab - Objective Vital Signs: Vital Signs Temperature 98.0 F 05/09/18 18:00 Pulse Rate 101 H 05/09/18 18:00 Respiratory Rate 20 05/09/18 18:00 Blood Pressure 119/83 05/09/18 18:00 O2 Sat by Pulse Oximetry (%) 99 05/09/18 15:12 Constitutional: Yes: No Distress, Calm Gastrointestinal: Yes: Soft, Other (excoriated skin at PEG site, minimal leakage of tube feeding-like material.) Labs: CBC, BMP 05/05/18 06:16 05/06/18 08:40 INR, PTT INR 1.32 (0.82-1.09) H 04/18/18 06:00 Problem List - Problems (1) Attention to gastrostomy tube Code(s): Z43.1 - ENCOUNTER FOR ATTENTION TO GASTROSTOMY (2) Encounter for attention to gastrostomy Code(s): Z43.1 - ENCOUNTER FOR ATTENTION TO GASTROSTOMY Assessment/Plan G-tube appears functional. Minimal leak at the track. The G-tube was adjusted. Keep the areal air-dry and clean. Call GI as needed.
--- NOTE | 2018-05-09 20:24 | PN ---
Teaching Attending Note Name of Resident: Shay Breaux ATTENDING PHYSICIAN STATEMENT I saw and evaluated the patient. I reviewed the resident's note and discussed the case with the resident. I agree with the resident's findings and plan as documented. SUBJECTIVE: Patient is comfortable, no new findings OBJECTIVE: Vital Signs Temperature 98.0 F 05/09/18 18:00 Pulse Rate 101 H 05/09/18 18:00 Respiratory Rate 20 05/09/18 18:00 Blood Pressure 119/83 05/09/18 18:00 O2 Sat by Pulse Oximetry (%) 99 05/09/18 15:12 CBCD WBC 5.3 K/mm3 (4.0-10.0) 05/05/18 06:16 RBC 4.09 M/mm3 (4.00-5.60) D 05/05/18 06:16 Hgb 12.3 GM/dL (11.7-16.9) D 05/05/18 06:16 Hct 37.6 % (35.4-49) D 05/05/18 06:16 MCV 91.9 fl (80-96) 05/05/18 06:16 MCHC 32.6 g/dl (32.0-35.9) 05/05/18 06:16 RDW 16.2 % (11.9-15.9) H 05/05/18 06:16 Plt Count 371 K/MM3 (134-434) D 05/05/18 06:16 MPV 7.4 fl (7.5-11.1) L 05/05/18 06:16 CMP Sodium 131 mmol/L (136-145) L 05/06/18 08:40 Potassium 5.1 mmol/L (3.5-5.1) 05/06/18 08:40 Chloride 95 mmol/L (98-107) L 05/06/18 08:40 Carbon Dioxide 25 mmol/L (21-32) 05/06/18 08:40 Anion Gap 11 (8-16) 05/06/18 08:40 BUN 12 mg/dL (7-18) 05/06/18 08:40 Creatinine 0.6 mg/dL (0.7-1.3) L 05/06/18 08:40 Creat Clearance w eGFR > 60 (>60) 05/06/18 08:40 Random Glucose 77 mg/dL (74-106) D 05/06/18 08:40 Calcium 7.2 mg/dL (8.5-10.1) L 05/06/18 08:40 Total Bilirubin 0.3 mg/dL (0.2-1.0) D 05/05/18 06:16 AST 104 U/L (15-37) H 05/05/18 06:16 ALT 44 U/L (12-78) 05/05/18 06:16 Alkaline Phosphatase 261 U/L (45-117) H 05/05/18 06:16 Total Protein 6.9 g/dl (6.4-8.2) D 05/05/18 06:16 Albumin 2.5 g/dl (3.4-5.0) L 05/05/18 06:16 CARDIAC ENZYMES Troponin I < 0.02 ng/ml (0.00-0.05) 04/16/18 02:15 Current Medications Generic Name Dose Route Start Last Admin Trade Name Freq PRN Reason Stop Dose Admin Amino Acids 30 ml 04/21/18 17:30 05/09/18 17:30 Prosource No Carb Liquid Pkt PO 30 ml BID@0800,1730 YUKO Administration Bisacodyl 10 mg 04/25/18 20:30 05/07/18 21:26 Dulcolax Suppository - RC 10 mg Q3D YUKO Administration Docusate Sodium 100 mg 04/23/18 14:00 05/09/18 14:32 Colace Liquid - PO Not Given TID YUKO Enoxaparin Sodium 40 mg 05/08/18 12:45 05/09/18 09:06 Lovenox - SQ 40 mg DAILY YUKO Administration IV Flush 10 ml 04/23/18 16:59 05/08/18 14:18 Sheri-Cath Flush IVPUSH 10 ml PRN PRN Administration FLUSH Lidocaine/Aluminum/Magnesium/Simeth 5 ml 04/29/18 18:00 05/09/18 18:57 Magic Mouthwash *Sjr Formula* - MM 5 ml Q6HPO YUKO Administration Methylprednisolone Sodium Succinate 40 mg 05/09/18 10:00 05/09/18 09:06 Solu-Medrol - IVPUSH 40 mg DAILY YUKO Administration Miscellaneous 1 each 05/02/18 13:55 05/08/18 14:15 Duragesic Patch Waste TD 1 each PRN PRN Administration PAIN Pantoprazole Sodium 40 mg 04/29/18 10:00 05/09/18 09:06 Protonix Packets For Oral Suspension - NGT 40 mg DAILY YUKO Administration Polyethylene Glycol 17 gm 04/30/18 10:00 05/09/18 09:05 Miralax (For Daily Use) - PO 17 gm DAILY YUKO Administration Senna 2 tab 04/27/18 22:00 04/29/18 22:09 Senna - PO 2 tab HS PRN Administration CONSTIPATION Home Medications Medication Instructions Recorded Calcitriol [Rocaltrol -] 0.25 mcg PEG BID #60 bot 02/14/18 Calcium 500Mg/Vit-D 200 Units 2 tab PO BID #120 tab 02/14/18 [Os-You 500+D -] FENTANYL 25mcg PATCH [DURAGESIC 1 patch TD Q72H 7 Days #1 box MDD 1 02/14/18 25mcg PATCH -] PE: per resident's note ASSESSMENT AND PLAN: Patient is a 58 y/o gentleman with h/o laryngeal cancer s/p laryngectomy, chemo and radiation, DVT s/p IVC filter , who presented with SOB and AMS and was found to have acute hypoxic resp. failure and sepsis . # Acute hyponatremia: improving back to the G tube feed since is functional again off ivf now # s/p hypoxic resp failure due to PNA and Large L pleural effusion, and sepsis which resolved. s/p IV antibiotic # H/o PE: has IVC filter. not on AC at home due to hematuria on AC . on Lovenox Px # occasional extremity jerks. witnessed by and other providers . improved, lexapro was discontinued # Abd distention :likely due to constipation. Improved cont bowel regimen # Laryngeal cancer, s/p larygnectomy. cont treatment with out pt onc. cont fentanyl patch ( increase dose due to continued pain ) DNR . No insurance coverage for rehab.placement. will be needing a hospiatl bed and other arrangements. discussed with Francisca social media analyst.
--- NOTE | 2018-05-09 22:13 | PN ---
Physical Exam: SUBJECTIVE: No new complaints. OBJECTIVE: Vital Signs Period Temp Pulse Resp BP Sys/Shrestha Pulse Ox Last 24 Hr 97.8 F-98.3 F 96-103 18-20 116-135/82-87 99-100 GENERAL: NAD, awake, alert, thin-appearing HEENT: SEVEN, sclera anicteric, MMM, temporal wasting noted NECK: Tracheostomy site intact without secretions LUNGS: CTA b/l. No accessory muscle use. Trach collar with blow-by oxygen HEART: RRR, normal S1 and S2 without murmur ABDOMEN: Soft, nondistended, nontender, normoactive bowel sounds, no guarding, no rebound, no masses. No hepatomegaly. GT with some excoriations around site MUSCULOSKELETAL: No CVA tenderness. UPPER EXTREMITIES: 2+ DP pulses, warm, well-perfused. no edema Psych: Depressed mood SKIN: Warm, dry, no rashes or lesions noted Active Medications Generic Name Dose Route Start Last Admin Trade Name Freq PRN Reason Stop Dose Admin Amino Acids 30 ml 04/21/18 17:30 05/09/18 17:30 Prosource No Carb Liquid Pkt PO 30 ml BID@0800,1730 YUKO Administration Bisacodyl 10 mg 04/25/18 20:30 05/07/18 21:26 Dulcolax Suppository - RC 10 mg Q3D YKUO Administration Docusate Sodium 100 mg 04/23/18 14:00 05/09/18 21:41 Colace Liquid - PO 100 mg TID YUKO Administration Enoxaparin Sodium 40 mg 05/08/18 12:45 05/09/18 09:06 Lovenox - SQ 40 mg DAILY YUKO Administration IV Flush 10 ml 04/23/18 16:59 05/08/18 14:18 Sheri-Cath Flush IVPUSH 10 ml PRN PRN Administration FLUSH Lidocaine/Aluminum/Magnesium/Simeth 5 ml 04/29/18 18:00 05/09/18 18:57 Magic Mouthwash *Sjr Formula* - MM 5 ml Q6HPO YUKO Administration Methylprednisolone Sodium Succinate 40 mg 05/09/18 10:00 05/09/18 09:06 Solu-Medrol - IVPUSH 40 mg DAILY YUKO Administration Miscellaneous 1 each 05/02/18 13:55 05/08/18 14:15 Duragesic Patch Waste TD 1 each PRN PRN Administration PAIN Pantoprazole Sodium 40 mg 04/29/18 10:00 05/09/18 09:06 Protonix Packets For Oral Suspension - NGT 40 mg DAILY YUKO Administration Polyethylene Glycol 17 gm 04/30/18 10:00 05/09/18 09:05 Miralax (For Daily Use) - PO 17 gm DAILY YUKO Administration Senna 2 tab 04/27/18 22:00 04/29/18 22:09 Senna - PO 2 tab HS PRN Administration CONSTIPATION ASSESSMENT/PLAN: 1) Abdominal Distention --Likely 2/2 to ileus from pain medication --Colace liquid on board --Senna 2 tabs HS --Dulcolax suppository q3Day --SSE as needed 2) Acute hypoxic respiratory dysfunction --Weaned off ventilator; tolerating trach collar at 40% --Continue to wean off high O2 percentage as tolerated --Maintain SpO2 >90% --Aspiration precautions: HOB elevated --Continue Fentanyl 50mcg Patch 3) Severe sepsis 2/2 to aspiration PNA --Resolved --ID on board: --Completed 5 days of IV ABX 4) ? Tardive dyskinesia --Resolved once off Lexapro 5) GTube leak --GT adjusted; keep flush against abdomen FEN: Fluids: None Electrolyte abnormalities: Pseudohypocalcemia Nutrition: Continue Jevity feeds, add Prosources 30mg BID PPX: DVT - Lovenox 40mg qDaily Code Status: DNR Dispo: d/c planning; continue to wean O2 requirements Case discussed with Dr. Js Breaux, DO - IM PGY-1 Visit type - Emergency Visit Emergency Visit: No - New Patient This patient is new to me today: No - Critical Care Critical Care patient: No
[2018-05-10] MEDS: MAG HYDROX/ALH/SMC/DPHA/LIDO 240 ML MOUTHWASH MM SCH ×4 (05:35→23:59)
[2018-05-10] MEDS: DOCUSATE NA 100 MG/10 ML UNIT-DOSE CUPS PO SCH ×3 (06:01→22:04)
[2018-05-10 08:17] LABS: CHLORIDE 92 mmol/L (98-107); POTASSIUM 4.6 mmol/L (3.5-5.1); SODIUM 131 mmol/L (136-145)
[2018-05-10 08:36] LABS: ANION GAP 11 (8-16); BLOOD UREA NITROGEN 16 mg/dL (7-18); CALCIUM 8.1 mg/dL (8.5-10.1); CO2 28 mmol/L (21-32); CREATININE 0.5 mg/dL (0.7-1.3); GLUCOSE,RANDOM 94 mg/dL (74-106)
[2018-05-10] MEDS ORDERED: NYSTATIN POWDER 100,000 UNITS/GM - 15 GM TOPICAL POWDER TP ONE (08:48)
[2018-05-10] MEDS: ENOXAPARIN NA (PORCINE) 40 MG/0.4 ML DISP.SYRIN SQ SCH (09:33)
[2018-05-10] MEDS: methylPREDNISolone NA SUCC 40 MG/1 ML VIAL IVPUSH SCH (09:33)
[2018-05-10] MEDS: POLYETHYLENE GLYCOL 3350 119 GM BTL PO SCH (09:34)
[2018-05-10] MEDS: PANTOPRAZOLE SOD 40 MG SUSPENSION PACKET NGT SCH (09:34)
[2018-05-10] MEDS: AMINO ACIDS/PROTEIN HYDROLYS 30 ML LIQUID.PKT PO SCH ×2 (09:34→18:21)
[2018-05-10] MEDS ORDERED: PT OWN MED DRAWER 7, Y5N ONE ×3 (11:09→18:14)
--- NOTE | 2018-05-10 14:29 | PN ---
Progress Note, Physician History of Present Illness: PULMONARY AWAKE,NAD,-SOB,ON TRACH COLLAR - Current Medication List Current Medications: Active Medications Amino Acids (Prosource No Carb Liquid Pkt) 30 ml PO BID@0800,1730 [facility] Last Admin: 05/10/18 09:34 Dose: 30 ml Bisacodyl (Dulcolax Suppository -) 10 mg RC Q3D [facility] Last Admin: 05/07/18 21:26 Dose: 10 mg Docusate Sodium (Colace Liquid -) 100 mg PO TID [facility] Last Admin: 05/10/18 06:01 Dose: 100 mg Enoxaparin Sodium (Lovenox -) 40 mg SQ DAILY [facility] Last Admin: 05/10/18 09:33 Dose: 40 mg Fentanyl (Duragesic 50mcg Patch -) 1 patch TD Q72H [facility] Stop: 05/17/18 14:22 IV Flush (Sheri-Cath Flush) 10 ml IVPUSH PRN PRN PRN Reason: FLUSH Last Admin: 05/08/18 14:18 Dose: 10 ml Lidocaine/Aluminum/Magnesium/Simeth (Magic Mouthwash *Sjr Formula* -) 5 ml MM Q6HPO [facility] Last Admin: 05/10/18 12:44 Dose: Not Given Methylprednisolone Sodium Succinate (Solu-Medrol -) 40 mg IVPUSH DAILY [facility] Last Admin: 05/10/18 09:33 Dose: 40 mg Miscellaneous (Duragesic Patch Waste) 1 each TD PRN PRN PRN Reason: PAIN Last Admin: 05/08/18 14:15 Dose: 1 each Miscellaneous (Duragesic Patch Waste) 1 each MC PRN PRN PRN Reason: PAIN Multi-Ingredient Ointment (Zinc Oxide) 1 applic TP BID [facility] Oxycodone HCl (Roxicodone -) 5 mg PO Q8H PRN PRN Reason: Pain 7-10 Pantoprazole Sodium (Protonix Packets For Oral Suspension -) 40 mg NGT DAILY [facility] Last Admin: 05/10/18 09:34 Dose: 40 mg Polyethylene Glycol (Miralax (For Daily Use) -) 17 gm PO DAILY [facility] Last Admin: 05/10/18 09:34 Dose: 17 gm Senna (Senna -) 2 tab PO HS PRN PRN Reason: CONSTIPATION Last Admin: 04/29/18 22:09 Dose: 2 tab - Objective Vital Signs: Vital Signs Temperature 98 F 05/10/18 13:44 Pulse Rate 107 H 05/10/18 13:44 Respiratory Rate 21 05/10/18 13:44 Blood Pressure 129/94 05/10/18 13:44 O2 Sat by Pulse Oximetry (%) 94 L 05/10/18 10:00 Constitutional: Yes: Calm, Thin Eyes: Yes: WNL HENT: Yes: WNL Neck: Yes: Supple (TRACH) Cardiovascular: Yes: Regular Rate and Rhythm, S1, S2 Respiratory: Yes: Rhonchi (FEW SCATTERED RHONCHI) Gastrointestinal: Yes: Normal Bowel Sounds, Soft Extremities: Yes: WNL Edema: No Labs: CBC, BMP 05/05/18 06:16 05/10/18 06:45 INR, PTT INR 1.32 (0.82-1.09) H 04/18/18 06:00 Problem List - Problems (1) Sepsis Code(s): A41.9 - SEPSIS, UNSPECIFIED ORGANISM (2) Neutropenia Code(s): D70.9 - NEUTROPENIA, UNSPECIFIED (3) Pneumonia Code(s): J18.9 - PNEUMONIA, UNSPECIFIED ORGANISM Qualifiers: Pneumonia type: due to unspecified organism Laterality: unspecified laterality Lung location: unspecified part of lung Qualified Code(s): J18.9 - Pneumonia, unspecified organism (4) Sepsis Code(s): A41.9 - SEPSIS, UNSPECIFIED ORGANISM Qualifiers: Sepsis type: sepsis due to unspecified organism Qualified Code(s): A41.9 - Sepsis, unspecified organism (5) Respiratory failure Code(s): J96.90 - RESPIRATORY FAILURE, UNSP, UNSP W HYPOXIA OR HYPERCAPNIA (7) Acute hypoxemic respiratory failure Code(s): J96.01 - ACUTE RESPIRATORY FAILURE WITH HYPOXIA Assessment/Plan Problem List - Problems (1) Sepsis Code(s): A41.9 - SEPSIS, UNSPECIFIED ORGANISM (2) Neutropenia Code(s): D70.9 - NEUTROPENIA, UNSPECIFIED (3) Pneumonia Code(s): J18.9 - PNEUMONIA, UNSPECIFIED ORGANISM Qualifiers: Pneumonia type: due to unspecified organism Laterality: unspecified laterality Lung location: unspecified part of lung Qualified Code(s): J18.9 - Pneumonia, unspecified organism (4) Sepsis Code(s): A41.9 - SEPSIS, UNSPECIFIED ORGANISM Qualifiers: Sepsis type: sepsis due to unspecified organism Qualified Code(s): A41.9 - Sepsis, unspecified organism (5) Respiratory failure Code(s): J96.90 - RESPIRATORY FAILURE, UNSP, UNSP W HYPOXIA OR HYPERCAPNIA (7) Acute hypoxemic respiratory failure Code(s): J96.01 - ACUTE RESPIRATORY FAILURE WITH HYPOXIA Assessment/Plan IMP: Acute on chronic respiratory failure improved Sepsis improved Neutropenia resolved Malnutrition Laryngeal CA trach collar VTE prophylaxis DNR /DNI tracheal suctioning inhaled bronchodilators chest-ray prednisone DR RAMIREZ
--- NOTE | 2018-05-10 15:06 | PN ---
Progress Note, Physician History of Present Illness: stable no new issues - Current Medication List Current Medications: Active Medications Amino Acids (Prosource No Carb Liquid Pkt) 30 ml PO BID@0800,1730 [facility] Last Admin: 05/10/18 09:34 Dose: 30 ml Bisacodyl (Dulcolax Suppository -) 10 mg RC Q3D [facility] Last Admin: 05/07/18 21:26 Dose: 10 mg Docusate Sodium (Colace Liquid -) 100 mg PO TID [facility] Last Admin: 05/10/18 06:01 Dose: 100 mg Enoxaparin Sodium (Lovenox -) 40 mg SQ DAILY [facility] Last Admin: 05/10/18 09:33 Dose: 40 mg Fentanyl (Duragesic 50mcg Patch -) 1 patch TD Q72H [facility] Stop: 05/17/18 14:22 IV Flush (Sheri-Cath Flush) 10 ml IVPUSH PRN PRN PRN Reason: FLUSH Last Admin: 05/08/18 14:18 Dose: 10 ml Lidocaine/Aluminum/Magnesium/Simeth (Magic Mouthwash *Sjr Formula* -) 5 ml MM Q6HPO [facility] Last Admin: 05/10/18 12:44 Dose: Not Given Methylprednisolone Sodium Succinate (Solu-Medrol -) 40 mg IVPUSH DAILY [facility] Stop: 05/10/18 18:00 Last Admin: 05/10/18 09:33 Dose: 40 mg Miscellaneous (Duragesic Patch Waste) 1 each TD PRN PRN PRN Reason: PAIN Last Admin: 05/08/18 14:15 Dose: 1 each Miscellaneous (Duragesic Patch Waste) 1 each MC PRN PRN PRN Reason: PAIN Multi-Ingredient Ointment (Zinc Oxide) 1 applic TP BID [facility] Oxycodone HCl (Roxicodone -) 5 mg PO Q8H PRN PRN Reason: Pain 7-10 Pantoprazole Sodium (Protonix Packets For Oral Suspension -) 40 mg NGT DAILY [facility] Last Admin: 05/10/18 09:34 Dose: 40 mg Polyethylene Glycol (Miralax (For Daily Use) -) 17 gm PO DAILY [facility] Last Admin: 05/10/18 09:34 Dose: 17 gm Prednisone (Deltasone -) 30 mg PO DAILY [facility] Senna (Senna -) 2 tab PO HS PRN PRN Reason: CONSTIPATION Last Admin: 04/29/18 22:09 Dose: 2 tab - Objective Vital Signs: Vital Signs Temperature 98 F 05/10/18 13:44 Pulse Rate 107 H 05/10/18 13:44 Respiratory Rate 21 05/10/18 13:44 Blood Pressure 129/94 05/10/18 13:44 O2 Sat by Pulse Oximetry (%) 94 L 05/10/18 10:00 Constitutional: Yes: No Distress, Calm Cardiovascular: Yes: Regular Rate and Rhythm Respiratory: Yes: Other (trach collar,on oxygen) Gastrointestinal: Yes: Normal Bowel Sounds, Soft, Other (peg in place) Musculoskeletal: Yes: WNL Extremities: Yes: WNL Neurological: Yes: Alert, Oriented Psychiatric: Yes: Alert, Oriented Labs: CBC, BMP 05/05/18 06:16 05/10/18 06:45 INR, PTT INR 1.32 (0.82-1.09) H 04/18/18 06:00 Assessment/Plan Problem List - Problems (1) Sepsis Code(s): A41.9 - SEPSIS, UNSPECIFIED ORGANISM Qualifiers: Sepsis type: sepsis due to unspecified organism Qualified Code(s): A41.9 - Sepsis, unspecified organism (2) Pneumonia Code(s): J18.9 - PNEUMONIA, UNSPECIFIED ORGANISM Qualifiers: Pneumonia type: due to unspecified organism Laterality: unspecified laterality Lung location: unspecified part of lung Qualified Code(s): J18.9 - Pneumonia, unspecified organism resp failure hypoxia Assessment/Plan 58 y.o. 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
[2018-05-10] MEDS: oxyCODONE HCL 5 MG TABLET PO PRN (16:00)
[2018-05-10] MEDS: fentaNYL 50mcg/hr PATCH.TD72 TD SCH (16:01)
[2018-05-10] MEDS: FENTANYL PATCH WASTE TD PRN (16:03)
[2018-05-10] MEDS ORDERED: INSULIN (NOVOLOG) ASPART 100 UNITS/ML 10ML VIAL ONE (18:12)
--- NOTE | 2018-05-10 19:03 | PN ---
Teaching Attending Note Name of Resident: Shay Breaux ATTENDING PHYSICIAN STATEMENT I saw and evaluated the patient. I reviewed the resident's note and discussed the case with the resident. I agree with the resident's findings and plan as documented. SUBJECTIVE: has generalized pain . OBJECTIVE: NAD, trach, awake MMM, no JVD. Lungs: decreased breath sounds at bases. Abd: slight distention . . non tender. NL BS. GT in LUQ Ext: No edema or erythema. Assessment/Plan: Unfortunate 58 y/o gentleman with h/o laryngeal cancer s/p laryngectomy, chemo and radiation, DVT s/p IVC filter , who presented with SOB and AMS and was found to have acute hypoxic resp failure and sepsis . 1-Acute hypoxic resp failure resolved . - cont prednisone taper 2- H/o PE: has IVC filter. not on AC at home due to hematuria on AC . - Cont prophylactic Lovenox. 3- constipation : bowel regimen 4- Laryngeal cancer, s/p larygnectomy. cont treatment with out pt onc. cont fentanyl patch 5- DNR . possible home with services tomorrow
[2018-05-10] MEDS: BISACODYL 10 MG SUPP.RECT RC SCH (20:11)
--- NOTE | 2018-05-10 20:53 | PN ---
Physical Exam: SUBJECTIVE: Depressed mood. Did not want to communicated today. OBJECTIVE: Vital Signs Period Temp Pulse Resp BP Sys/Shrestha Pulse Ox Last 24 Hr 98 F-98.3 F 90-107 18-21 119-129/83-94 94-98 GENERAL: NAD, awake, alert, thin-appearing HEENT: SEVEN, sclera anicteric, MMM, temporal wasting noted NECK: Tracheostomy site intact without secretions LUNGS: CTA b/l. No accessory muscle use. Trach collar with blow-by oxygen HEART: RRR, normal S1 and S2 without murmur ABDOMEN: Soft, nondistended, nontender, normoactive bowel sounds, no guarding, no rebound, no masses. No hepatomegaly. GT with some excoriations around site MUSCULOSKELETAL: No CVA tenderness. UPPER EXTREMITIES: 2+ DP pulses, warm, well-perfused. no edema Psych: Depressed mood SKIN: Warm, dry, no rashes or lesions noted Laboratory Results - last 24 hr 05/10/18 06:45 Sodium 131 L Potassium 4.6 Chloride 92 L Carbon Dioxide 28 Anion Gap 11 BUN 16 Creatinine 0.5 L Creat Clearance w eGFR > 60 Random Glucose 94 D Calcium 8.1 L Active Medications Generic Name Dose Route Start Last Admin Trade Name Freq PRN Reason Stop Dose Admin Amino Acids 30 ml 04/21/18 17:30 05/10/18 18:21 Prosource No Carb Liquid Pkt PO 30 ml BID@0800,1730 YUKO Administration Bisacodyl 10 mg 04/25/18 20:30 05/10/18 20:11 Dulcolax Suppository - RC 10 mg Q3D YUKO Administration Docusate Sodium 100 mg 04/23/18 14:00 05/10/18 16:00 Colace Liquid - PO 100 mg TID YUKO Administration Enoxaparin Sodium 40 mg 05/08/18 12:45 05/10/18 09:33 Lovenox - SQ 40 mg DAILY YUKO Administration Fentanyl 1 patch 05/10/18 16:00 05/10/18 16:01 Duragesic 50mcg Patch - TD 05/17/18 15:59 1 patch Q72H YUKO Administration IV Flush 10 ml 04/23/18 16:59 05/08/18 14:18 Sheri-Cath Flush IVPUSH 10 ml PRN PRN Administration FLUSH Lidocaine/Aluminum/Magnesium/Simeth 5 ml 04/29/18 18:00 05/10/18 18:17 Magic Mouthwash *Sjr Formula* - MM Not Given Q6HPO YUKO Miscellaneous 1 each 05/02/18 13:55 05/10/18 16:03 Duragesic Patch Waste TD 1 each PRN PRN Administration PAIN Miscellaneous 1 each 05/10/18 15:49 Duragesic Patch Waste TD PRN PRN PAIN Multi-Ingredient Ointment 1 applic 05/10/18 22:00 Zinc Oxide TP BID YUKO Oxycodone HCl 5 mg 05/10/18 14:21 05/10/18 16:00 Roxicodone - PO 5 mg Q8H PRN Administration Pain 7-10 Pantoprazole Sodium 40 mg 04/29/18 10:00 05/10/18 09:34 Protonix Packets For Oral Suspension - NGT 40 mg DAILY YUKO Administration Polyethylene Glycol 17 gm 04/30/18 10:00 05/10/18 09:34 Miralax (For Daily Use) - PO 17 gm DAILY YUKO Administration Prednisone 30 mg 05/11/18 10:00 Deltasone - PO DAILY YUKO Senna 2 tab 04/27/18 22:00 04/29/18 22:09 Senna - PO 2 tab HS PRN Administration CONSTIPATION ASSESSMENT/PLAN: 1) Abdominal Distention --Likely 2/2 to ileus from pain medication --Colace liquid on board --Senna 2 tabs HS --Dulcolax suppository q3Day --SSE as needed 2) Acute hypoxic respiratory dysfunction --Weaned off ventilator; tolerating trach collar at 40% --Continue to wean off high O2 percentage as tolerated --Maintain SpO2 >90% --Aspiration precautions: HOB elevated --Continue Fentanyl 50mcg Patch 3) Severe sepsis 2/2 to aspiration PNA --Resolved --ID on board: --Completed 5 days of IV ABX 4) ? Tardive dyskinesia --Resolved; off Lexapro 5) GTube leak --GT adjusted; keep flush against abdomen --Zinc oxide around site FEN: Fluids: None Nutrition: Continue Jevity feeds, add Prosources 30mg BID PPX: DVT - Lovenox 40mg qDaily Code Status: DNR Dispo: d/c planning; continue to wean O2 requirements Case discussed with Dr. Rolando Breaux, DO - IM PGY-1 Visit type - Emergency Visit Emergency Visit: No - New Patient This patient is new to me today: No - Critical Care Critical Care patient: No
[2018-05-10] MEDS: ZINC OXIDE 20% TOPICAL OINTMENT 30 GM TUBE TP SCH (22:04)
[2018-05-10] MEDS: SENNOSIDES 8.6MG TABLET (FP) PO PRN (22:05)
[2018-05-11] MEDS: DOCUSATE NA 100 MG/10 ML UNIT-DOSE CUPS PO SCH ×4 (06:40→22:29)
[2018-05-11] MEDS: MAG HYDROX/ALH/SMC/DPHA/LIDO 240 ML MOUTHWASH MM SCH ×4 (06:41→23:49)
[2018-05-11] MEDS ORDERED: PT OWN MED DRAWER 7, Y5N ONE ×2 (09:53→15:19)
[2018-05-11] MEDS: PANTOPRAZOLE SOD 40 MG SUSPENSION PACKET NGT SCH (09:55)
[2018-05-11] MEDS: predniSONE 20 MG TABLET (UD) PO SCH (09:55)
[2018-05-11] MEDS: ENOXAPARIN NA (PORCINE) 40 MG/0.4 ML DISP.SYRIN SQ SCH (09:56)
[2018-05-11] MEDS: ZINC OXIDE 20% TOPICAL OINTMENT 30 GM TUBE TP SCH ×2 (09:56→22:30)
[2018-05-11] MEDS: AMINO ACIDS/PROTEIN HYDROLYS 30 ML LIQUID.PKT PO SCH ×2 (09:56→17:38)
[2018-05-11] MEDS: POLYETHYLENE GLYCOL 3350 119 GM BTL PO SCH (09:58)
--- NOTE | 2018-05-11 12:50 | PN ---
Teaching Attending Note Name of Resident: Shay Breaux ATTENDING PHYSICIAN STATEMENT I saw and evaluated the patient. I reviewed the resident's note and discussed the case with the resident. I agree with the resident's findings and plan as documented. SUBJECTIVE: No fever or chills. has pain in all his body OBJECTIVE: NAD, trach, awake MMM, no JVD. Lungs: decreased breath sounds at bases. Abd: slight distention . non tender. NL BS. GT in LUQ Ext: No edema or erythema. Assessment/Plan: Unfortunate 58 y/o gentleman with h/o laryngeal cancer s/p laryngectomy, chemo and radiation, DVT s/p IVC filter , who presented with SOB and AMS and was found to have acute hypoxic resp failure and sepsis . 1-Acute hypoxic resp failure resolved . - cont prednisone taper . day 1 on prednisone 30 2- H/o PE: has IVC filter. not on AC at home due to hematuria on AC . - Cont prophylactic Lovenox. 3- constipation : bowel regimen 4- Laryngeal cancer, s/p larygnectomy. cont treatment with out pt onc. cont fentanyl patch 5- DNR . d/w industrial services worker. cont to look for placement for safe discharge planning
--- NOTE | 2018-05-11 14:39 | PN ---
Progress Note, Physician History of Present Illness: pulmonary awake,-resp distress on trach collar - Current Medication List Current Medications: Active Medications Amino Acids (Prosource No Carb Liquid Pkt) 30 ml PO BID@0800,1730 [facility] Last Admin: 05/11/18 09:56 Dose: 30 ml Bisacodyl (Dulcolax Suppository -) 10 mg RC Q3D [facility] Last Admin: 05/10/18 20:11 Dose: 10 mg Docusate Sodium (Colace Liquid -) 100 mg PO TID [facility] Last Admin: 05/11/18 14:36 Dose: 100 mg Enoxaparin Sodium (Lovenox -) 40 mg SQ DAILY [facility] Last Admin: 05/11/18 09:56 Dose: 40 mg Fentanyl (Duragesic 50mcg Patch -) 1 patch TD Q72H [facility] Stop: 05/17/18 15:59 Last Admin: 05/10/18 16:01 Dose: 1 patch IV Flush (Sheri-Cath Flush) 10 ml IVPUSH PRN PRN PRN Reason: FLUSH Last Admin: 05/08/18 14:18 Dose: 10 ml Lidocaine/Aluminum/Magnesium/Simeth (Magic Mouthwash *Sjr Formula* -) 5 ml MM Q6HPO [facility] Last Admin: 05/11/18 11:59 Dose: Not Given Miscellaneous (Duragesic Patch Waste) 1 each TD PRN PRN PRN Reason: PAIN Last Admin: 05/10/18 16:03 Dose: 1 each Miscellaneous (Duragesic Patch Waste) 1 each TD PRN PRN PRN Reason: PAIN Multi-Ingredient Ointment (Zinc Oxide) 1 applic TP BID [facility] Last Admin: 05/11/18 09:56 Dose: 1 applic Oxycodone HCl (Roxicodone -) 5 mg PO Q8H PRN PRN Reason: Pain 7-10 Last Admin: 05/10/18 16:00 Dose: 5 mg Pantoprazole Sodium (Protonix Packets For Oral Suspension -) 40 mg NGT DAILY [facility] Last Admin: 05/11/18 09:55 Dose: 40 mg Polyethylene Glycol (Miralax (For Daily Use) -) 17 gm PO DAILY [facility] Last Admin: 05/11/18 09:58 Dose: 17 gm Prednisone (Deltasone -) 30 mg PO DAILY [facility] Last Admin: 05/11/18 09:55 Dose: 30 mg Senna (Senna -) 2 tab PO HS PRN PRN Reason: CONSTIPATION Last Admin: 05/10/18 22:05 Dose: 2 tab - Objective Vital Signs: Vital Signs Temperature 97.8 F 05/11/18 13:08 Pulse Rate 100 H 05/11/18 13:08 Respiratory Rate 20 05/11/18 13:08 Blood Pressure 116/77 05/11/18 13:08 O2 Sat by Pulse Oximetry (%) 93 L 05/11/18 09:15 Constitutional: Yes: Calm, Thin Eyes: Yes: WNL HENT: Yes: WNL Neck: Yes: Supple (trach) Cardiovascular: Yes: Regular Rate and Rhythm, S1, S2 Respiratory: Yes: Rhonchi (scattered josse rhonchi) Gastrointestinal: Yes: Normal Bowel Sounds, Soft Extremities: Yes: WNL Edema: No Labs: CBC, BMP Problem List - Problems (1) Sepsis Code(s): A41.9 - SEPSIS, UNSPECIFIED ORGANISM (2) Neutropenia Code(s): D70.9 - NEUTROPENIA, UNSPECIFIED (3) Pneumonia Code(s): J18.9 - PNEUMONIA, UNSPECIFIED ORGANISM Qualifiers: Pneumonia type: due to unspecified organism Laterality: unspecified laterality Lung location: unspecified part of lung Qualified Code(s): J18.9 - Pneumonia, unspecified organism (4) Sepsis Code(s): A41.9 - SEPSIS, UNSPECIFIED ORGANISM Qualifiers: Sepsis type: sepsis due to unspecified organism Qualified Code(s): A41.9 - Sepsis, unspecified organism (5) Respiratory failure Code(s): J96.90 - RESPIRATORY FAILURE, UNSP, UNSP W HYPOXIA OR HYPERCAPNIA (7) Acute hypoxemic respiratory failure Code(s): J96.01 - ACUTE RESPIRATORY FAILURE WITH HYPOXIA Assessment/Plan Problem List - Problems (1) Sepsis Code(s): A41.9 - SEPSIS, UNSPECIFIED ORGANISM (2) Neutropenia Code(s): D70.9 - NEUTROPENIA, UNSPECIFIED (3) Pneumonia Code(s): J18.9 - PNEUMONIA, UNSPECIFIED ORGANISM Qualifiers: Pneumonia type: due to unspecified organism Laterality: unspecified laterality Lung location: unspecified part of lung Qualified Code(s): J18.9 - Pneumonia, unspecified organism (4) Sepsis Code(s): A41.9 - SEPSIS, UNSPECIFIED ORGANISM Qualifiers: Sepsis type: sepsis due to unspecified organism Qualified Code(s): A41.9 - Sepsis, unspecified organism (5) Respiratory failure Code(s): J96.90 - RESPIRATORY FAILURE, UNSP, UNSP W HYPOXIA OR HYPERCAPNIA (7) Acute hypoxemic respiratory failure Code(s): J96.01 - ACUTE RESPIRATORY FAILURE WITH HYPOXIA Assessment/Plan IMP: Acute on chronic respiratory failure improved Sepsis improved Neutropenia resolved Malnutrition Laryngeal CA trach collar VTE prophylaxis DNR /DNI tracheal suctioning inhaled bronchodilators prednisone chest x-ray am DR RAMIREZ
--- NOTE | 2018-05-11 15:49 | PN ---
Progress Note, Physician History of Present Illness: stable no new issues on trach collar - Current Medication List Current Medications: Active Medications Amino Acids (Prosource No Carb Liquid Pkt) 30 ml PO BID@0800,1730 [facility] Last Admin: 05/11/18 09:56 Dose: 30 ml Bisacodyl (Dulcolax Suppository -) 10 mg RC Q3D [facility] Last Admin: 05/10/18 20:11 Dose: 10 mg Docusate Sodium (Colace Liquid -) 100 mg PO TID [facility] Last Admin: 05/11/18 14:39 Dose: Not Given Enoxaparin Sodium (Lovenox -) 40 mg SQ DAILY [facility] Last Admin: 05/11/18 09:56 Dose: 40 mg Fentanyl (Duragesic 50mcg Patch -) 1 patch TD Q72H [facility] Stop: 05/17/18 15:59 Last Admin: 05/10/18 16:01 Dose: 1 patch IV Flush (Sheri-Cath Flush) 10 ml IVPUSH PRN PRN PRN Reason: FLUSH Last Admin: 05/08/18 14:18 Dose: 10 ml Lidocaine/Aluminum/Magnesium/Simeth (Magic Mouthwash *Sjr Formula* -) 5 ml MM Q6HPO [facility] Last Admin: 05/11/18 11:59 Dose: Not Given Miscellaneous (Duragesic Patch Waste) 1 each TD PRN PRN PRN Reason: PAIN Last Admin: 05/10/18 16:03 Dose: 1 each Miscellaneous (Duragesic Patch Waste) 1 each TD PRN PRN PRN Reason: PAIN Multi-Ingredient Ointment (Zinc Oxide) 1 applic TP BID [facility] Last Admin: 05/11/18 09:56 Dose: 1 applic Oxycodone HCl (Roxicodone -) 5 mg PO Q8H PRN PRN Reason: Pain 7-10 Last Admin: 05/10/18 16:00 Dose: 5 mg Pantoprazole Sodium (Protonix Packets For Oral Suspension -) 40 mg NGT DAILY [facility] Last Admin: 05/11/18 09:55 Dose: 40 mg Polyethylene Glycol (Miralax (For Daily Use) -) 17 gm PO DAILY [facility] Last Admin: 05/11/18 09:58 Dose: 17 gm Prednisone (Deltasone -) 30 mg PO DAILY [facility] Last Admin: 05/11/18 09:55 Dose: 30 mg Senna (Senna -) 2 tab PO HS PRN PRN Reason: CONSTIPATION Last Admin: 05/10/18 22:05 Dose: 2 tab - Objective Vital Signs: Vital Signs Temperature 97.8 F 05/11/18 13:08 Pulse Rate 100 H 05/11/18 13:08 Respiratory Rate 20 05/11/18 13:08 Blood Pressure 116/77 05/11/18 13:08 O2 Sat by Pulse Oximetry (%) 93 L 05/11/18 09:15 Constitutional: Yes: No Distress, Calm Cardiovascular: Yes: Regular Rate and Rhythm Respiratory: Yes: Regular, CTA Bilaterally Gastrointestinal: Yes: Normal Bowel Sounds, Soft, Other (peg tube in place) Musculoskeletal: Yes: WNL Extremities: Yes: WNL Neurological: Yes: Alert, Oriented Psychiatric: Yes: Alert, Oriented Labs: CBC, BMP 05/05/18 06:16 05/10/18 06:45 INR, PTT INR 1.32 (0.82-1.09) H 04/18/18 06:00 Assessment/Plan Problem List - Problems (1) Sepsis Code(s): A41.9 - SEPSIS, UNSPECIFIED ORGANISM Qualifiers: Sepsis type: sepsis due to unspecified organism Qualified Code(s): A41.9 - Sepsis, unspecified organism (2) Pneumonia Code(s): J18.9 - PNEUMONIA, UNSPECIFIED ORGANISM Qualifiers: Pneumonia type: due to unspecified organism Laterality: unspecified laterality Lung location: unspecified part of lung Qualified Code(s): J18.9 - Pneumonia, unspecified organism resp failure hypoxia Problem List - Problems (1) Sepsis Code(s): A41.9 - SEPSIS, UNSPECIFIED ORGANISM (2) Neutropenia Code(s): D70.9 - NEUTROPENIA, UNSPECIFIED (3) Pneumonia Code(s): J18.9 - PNEUMONIA, UNSPECIFIED ORGANISM Qualifiers: Pneumonia type: due to unspecified organism Laterality: unspecified laterality Lung location: unspecified part of lung Qualified Code(s): J18.9 - Pneumonia, unspecified organism (4) Sepsis Code(s): A41.9 - SEPSIS, UNSPECIFIED ORGANISM Qualifiers: Sepsis type: sepsis due to unspecified organism Qualified Code(s): A41.9 - Sepsis, unspecified organism (5) Respiratory failure Code(s): J96.90 - RESPIRATORY FAILURE, UNSP, UNSP W HYPOXIA OR HYPERCAPNIA (7) Acute hypoxemic respiratory failure Code(s): J96.01 - ACUTE RESPIRATORY FAILURE WITH HYPOXIA Assessment/Plan 58 y.o. 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
--- NOTE | 2018-05-11 18:33 | PN ---
Physical Exam: UPDATE: Page because pt has suspected weakness in hand. Attended to pt with at bedside. Able to move arm and use each digit independently on both hands. Pt has some slight weakness, however this is symmetrical and neuro exam is unchanged compared to admission exams. I suspect this may be due to some nutritional deficits and will order some B12, folate labs with AM labs. SUBJECTIVE: No acute events. Pt did not want to communicate today once again. OBJECTIVE: Vital Signs Period Temp Pulse Resp BP Sys/Shrestha Pulse Ox Last 24 Hr 97.5 F-98.2 F 95-103 18-20 109-123/77-87 93-98 GENERAL: NAD, awake, alert, thin-appearing HEENT: SEVEN, sclera anicteric, MMM, temporal wasting noted NECK: Tracheostomy site intact without secretions LUNGS: CTA b/l. No accessory muscle use. Trach collar with blow-by oxygen HEART: RRR, normal S1 and S2 without murmur ABDOMEN: Soft, nondistended, nontender, normoactive bowel sounds. No hepatomegaly. GT with some excoriations around site MUSCULOSKELETAL: No CVA tenderness. UPPER EXTREMITIES: 2+ DP pulses, warm, well-perfused. no edema Psych: Depressed mood SKIN: Warm, dry, no rashes or lesions noted Active Medications Generic Name Dose Route Start Last Admin Trade Name Freq PRN Reason Stop Dose Admin Amino Acids 30 ml 04/21/18 17:30 05/11/18 17:38 Prosource No Carb Liquid Pkt PO 30 ml BID@0800,1730 [facility] Administration Bisacodyl 10 mg 04/25/18 20:30 05/10/18 20:11 Dulcolax Suppository - RC 10 mg Q3D [facility] Administration Docusate Sodium 100 mg 04/23/18 14:00 05/11/18 14:39 Colace Liquid - PO Not Given TID [facility] Enoxaparin Sodium 40 mg 05/08/18 12:45 05/11/18 09:56 Lovenox - SQ 40 mg DAILY [facility] Administration Fentanyl 1 patch 05/10/18 16:00 05/10/18 16:01 Duragesic 50mcg Patch - TD 05/17/18 15:59 1 patch Q72H [facility] Administration IV Flush 10 ml 04/23/18 16:59 05/08/18 14:18 Sheri-Cath Flush IVPUSH 10 ml PRN PRN Administration FLUSH Lidocaine/Aluminum/Magnesium/Simeth 5 ml 04/29/18 18:00 05/11/18 17:34 Magic Mouthwash *Sjr Formula* - MM Not Given Q6HPO [facility] Miscellaneous 1 each 05/02/18 13:55 05/10/18 16:03 Duragesic Patch Waste TD 1 each PRN PRN Administration PAIN Miscellaneous 1 each 05/10/18 15:49 Duragesic Patch Waste TD PRN PRN PAIN Multi-Ingredient Ointment 1 applic 05/10/18 22:00 05/11/18 09:56 Zinc Oxide TP 1 applic BID [facility] Administration Oxycodone HCl 5 mg 05/10/18 14:21 05/10/18 16:00 Roxicodone - PO 5 mg Q8H PRN Administration Pain 7-10 Pantoprazole Sodium 40 mg 04/29/18 10:00 05/11/18 09:55 Protonix Packets For Oral Suspension - NGT 40 mg DAILY [facility] Administration Polyethylene Glycol 17 gm 04/30/18 10:00 05/11/18 09:58 Miralax (For Daily Use) - PO 17 gm DAILY [facility] Administration Prednisone 30 mg 05/11/18 10:00 05/11/18 09:55 Deltasone - PO 30 mg DAILY [facility] Administration Senna 2 tab 04/27/18 22:00 05/10/18 22:05 Senna - PO 2 tab HS PRN Administration CONSTIPATION ASSESSMENT/PLAN: 1) Abdominal Distention --Likely 2/2 to ileus from pain medication --Colace liquid on board --Senna 2 tabs HS --Dulcolax suppository q3Day --SSE as needed 2) Acute hypoxic respiratory dysfunction --Weaned off ventilator; tolerating trach collar at 40% --Continue to wean off high O2 percentage as tolerated --Maintain SpO2 >90% --Aspiration precautions: HOB elevated --Continue Fentanyl 50mcg Patch --Prednisone 30mg qDaily today; continue to taper off 3) Severe sepsis 2/2 to aspiration PNA --Resolved --ID on board: --Completed 5 days of IV ABX 4) GTube leak --GT adjusted; keep flush against abdomen --Zinc oxide around site 5) ? Tardive dyskinesia --Resolved; off Lexapro FEN: Fluids: None Nutrition: Continue Jevity feeds, add Prosources 30mg BID PPX: DVT - Lovenox 40mg qDaily Code Status: DNR; confirmed with pt and with his at bedside today Dispo: d/c planning; continue to wean O2 requirements Case discussed with Dr. Rolando Breaux, DO - IM PGY-1 Visit type - Emergency Visit Emergency Visit: No - New Patient This patient is new to me today: No - Critical Care Critical Care patient: No
[2018-05-11] MEDS: oxyCODONE HCL 5 MG TABLET PO PRN (22:26)
[2018-05-11] MEDS: SENNOSIDES 8.6MG TABLET (FP) PO PRN (22:28)
[2018-05-12] MEDS: MAG HYDROX/ALH/SMC/DPHA/LIDO 240 ML MOUTHWASH MM SCH ×4 (06:10→23:20)
[2018-05-12] MEDS: DOCUSATE NA 100 MG/10 ML UNIT-DOSE CUPS PO SCH ×3 (06:10→21:08)
[2018-05-12] MEDS: predniSONE 20 MG TABLET (UD) PO SCH (11:11)
[2018-05-12] MEDS: oxyCODONE HCL 5 MG TABLET PO PRN ×2 (11:11→21:07)
[2018-05-12] MEDS: AMINO ACIDS/PROTEIN HYDROLYS 30 ML LIQUID.PKT PO SCH ×2 (11:12→18:02)
[2018-05-12] MEDS: POLYETHYLENE GLYCOL 3350 119 GM BTL PO SCH (11:12)
[2018-05-12] MEDS: ENOXAPARIN NA (PORCINE) 40 MG/0.4 ML DISP.SYRIN SQ SCH (11:12)
[2018-05-12] MEDS: PANTOPRAZOLE SOD 40 MG SUSPENSION PACKET NGT SCH (11:12)
[2018-05-12] MEDS: ZINC OXIDE 20% TOPICAL OINTMENT 30 GM TUBE TP SCH ×2 (11:13→21:08)
--- NOTE | 2018-05-12 12:10 | PN ---
Progress Note, Physician History of Present Illness: no new issues - Current Medication List Current Medications: Active Medications Amino Acids (Prosource No Carb Liquid Pkt) 30 ml PO BID@0800,1730 [facility] Last Admin: 05/12/18 11:12 Dose: 30 ml Bisacodyl (Dulcolax Suppository -) 10 mg RC Q3D [facility] Last Admin: 05/10/18 20:11 Dose: 10 mg Docusate Sodium (Colace Liquid -) 100 mg PO TID [facility] Last Admin: 05/12/18 06:10 Dose: Not Given Enoxaparin Sodium (Lovenox -) 40 mg SQ DAILY [facility] Last Admin: 05/12/18 11:12 Dose: 40 mg Fentanyl (Duragesic 50mcg Patch -) 1 patch TD Q72H [facility] Stop: 05/17/18 15:59 Last Admin: 05/10/18 16:01 Dose: 1 patch IV Flush (Sheri-Cath Flush) 10 ml IVPUSH PRN PRN PRN Reason: FLUSH Last Admin: 05/08/18 14:18 Dose: 10 ml Lidocaine/Aluminum/Magnesium/Simeth (Magic Mouthwash *Sjr Formula* -) 5 ml MM Q6HPO [facility] Last Admin: 05/12/18 11:26 Dose: Not Given Miscellaneous (Duragesic Patch Waste) 1 each TD PRN PRN PRN Reason: PAIN Last Admin: 05/10/18 16:03 Dose: 1 each Miscellaneous (Duragesic Patch Waste) 1 each TD PRN PRN PRN Reason: PAIN Multi-Ingredient Ointment (Zinc Oxide) 1 applic TP BID [facility] Last Admin: 05/12/18 11:13 Dose: 1 applic Oxycodone HCl (Roxicodone -) 5 mg PO Q8H PRN PRN Reason: Pain 7-10 Last Admin: 05/12/18 11:11 Dose: 5 mg Pantoprazole Sodium (Protonix Packets For Oral Suspension -) 40 mg NGT DAILY [facility] Last Admin: 05/12/18 11:12 Dose: 40 mg Polyethylene Glycol (Miralax (For Daily Use) -) 17 gm PO DAILY [facility] Last Admin: 05/12/18 11:12 Dose: 17 gm Prednisone (Deltasone -) 30 mg PO DAILY [facility] Last Admin: 05/12/18 11:11 Dose: 30 mg Senna (Senna -) 2 tab PO HS PRN PRN Reason: CONSTIPATION Last Admin: 05/11/18 22:28 Dose: 2 tab - Objective Vital Signs: Vital Signs Temperature 97.7 F 05/12/18 07:37 Pulse Rate 92 H 05/12/18 10:04 Respiratory Rate 20 05/12/18 07:37 Blood Pressure 113/79 05/12/18 07:37 O2 Sat by Pulse Oximetry (%) 96 05/12/18 10:04 Constitutional: Yes: No Distress, Calm Cardiovascular: Yes: Regular Rate and Rhythm Respiratory: Yes: Other (trach collar) Gastrointestinal: Yes: Normal Bowel Sounds, Soft, Other (peg in place) Musculoskeletal: Yes: WNL Extremities: Yes: WNL Neurological: Yes: Alert, Oriented Psychiatric: Yes: Alert, Oriented Labs: CBC, BMP 05/05/18 06:16 05/10/18 06:45 INR, PTT INR 1.32 (0.82-1.09) H 04/18/18 06:00 Assessment/Plan Problem List - Problems (1) Sepsis Code(s): A41.9 - SEPSIS, UNSPECIFIED ORGANISM Qualifiers: Sepsis type: sepsis due to unspecified organism Qualified Code(s): A41.9 - Sepsis, unspecified organism (2) Pneumonia Code(s): J18.9 - PNEUMONIA, UNSPECIFIED ORGANISM Qualifiers: Pneumonia type: due to unspecified organism Laterality: unspecified laterality Lung location: unspecified part of lung Qualified Code(s): J18.9 - Pneumonia, unspecified organism resp failure hypoxia Problem List - Problems (1) Sepsis Code(s): A41.9 - SEPSIS, UNSPECIFIED ORGANISM (2) Neutropenia Code(s): D70.9 - NEUTROPENIA, UNSPECIFIED (3) Pneumonia Code(s): J18.9 - PNEUMONIA, UNSPECIFIED ORGANISM Qualifiers: Pneumonia type: due to unspecified organism Laterality: unspecified laterality Lung location: unspecified part of lung Qualified Code(s): J18.9 - Pneumonia, unspecified organism (4) Sepsis Code(s): A41.9 - SEPSIS, UNSPECIFIED ORGANISM Qualifiers: Sepsis type: sepsis due to unspecified organism Qualified Code(s): A41.9 - Sepsis, unspecified organism (5) Respiratory failure Code(s): J96.90 - RESPIRATORY FAILURE, UNSP, UNSP W HYPOXIA OR HYPERCAPNIA (7) Acute hypoxemic respiratory failure Code(s): J96.01 - ACUTE RESPIRATORY FAILURE WITH HYPOXIA Assessment/Plan 58 y.o. 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
--- NOTE | 2018-05-12 14:16 | PN ---
Progress Note, Physician History of Present Illness: PULMONARY AWAKE,ALERT,NAD ON TRACH COLLAR - Current Medication List Current Medications: Active Medications Amino Acids (Prosource No Carb Liquid Pkt) 30 ml PO BID@0800,1730 [facility] Last Admin: 05/12/18 11:12 Dose: 30 ml Bisacodyl (Dulcolax Suppository -) 10 mg RC Q3D [facility] Last Admin: 05/10/18 20:11 Dose: 10 mg Docusate Sodium (Colace Liquid -) 100 mg PO TID [facility] Last Admin: 05/12/18 06:10 Dose: Not Given Enoxaparin Sodium (Lovenox -) 40 mg SQ DAILY [facility] Last Admin: 05/12/18 11:12 Dose: 40 mg Fentanyl (Duragesic 50mcg Patch -) 1 patch TD Q72H [facility] Stop: 05/17/18 15:59 Last Admin: 05/10/18 16:01 Dose: 1 patch IV Flush (Sheri-Cath Flush) 10 ml IVPUSH PRN PRN PRN Reason: FLUSH Last Admin: 05/08/18 14:18 Dose: 10 ml Lidocaine/Aluminum/Magnesium/Simeth (Magic Mouthwash *Sjr Formula* -) 5 ml MM Q6HPO [facility] Last Admin: 05/12/18 11:26 Dose: Not Given Miscellaneous (Duragesic Patch Waste) 1 each TD PRN PRN PRN Reason: PAIN Last Admin: 05/10/18 16:03 Dose: 1 each Miscellaneous (Duragesic Patch Waste) 1 each TD PRN PRN PRN Reason: PAIN Multi-Ingredient Ointment (Zinc Oxide) 1 applic TP BID [facility] Last Admin: 05/12/18 11:13 Dose: 1 applic Oxycodone HCl (Roxicodone -) 5 mg PO Q8H PRN PRN Reason: Pain 7-10 Last Admin: 05/12/18 11:11 Dose: 5 mg Pantoprazole Sodium (Protonix Packets For Oral Suspension -) 40 mg NGT DAILY [facility] Last Admin: 05/12/18 11:12 Dose: 40 mg Polyethylene Glycol (Miralax (For Daily Use) -) 17 gm PO DAILY [facility] Last Admin: 05/12/18 11:12 Dose: 17 gm Prednisone (Deltasone -) 30 mg PO DAILY [facility] Last Admin: 05/12/18 11:11 Dose: 30 mg Senna (Senna -) 2 tab PO HS PRN PRN Reason: CONSTIPATION Last Admin: 05/11/18 22:28 Dose: 2 tab - Objective Vital Signs: Vital Signs Temperature 97.7 F 05/12/18 07:37 Pulse Rate 92 H 05/12/18 10:04 Respiratory Rate 20 05/12/18 07:37 Blood Pressure 113/79 05/12/18 07:37 O2 Sat by Pulse Oximetry (%) 96 05/12/18 10:04 Constitutional: Yes: Well Nourished, Calm Eyes: Yes: WNL HENT: Yes: WNL Neck: Yes: Supple (TRACH) Cardiovascular: Yes: Regular Rate and Rhythm, S1, S2 Respiratory: Yes: Rhonchi Gastrointestinal: Yes: Normal Bowel Sounds, Soft Extremities: Yes: WNL Edema: No Labs: CBC, BMP - ....Imaging Chest X-ray: Report Reviewed, Image Reviewed Problem List - Problems (1) Sepsis Code(s): A41.9 - SEPSIS, UNSPECIFIED ORGANISM (2) Neutropenia Code(s): D70.9 - NEUTROPENIA, UNSPECIFIED (3) Pneumonia Code(s): J18.9 - PNEUMONIA, UNSPECIFIED ORGANISM Qualifiers: Pneumonia type: due to unspecified organism Laterality: unspecified laterality Lung location: unspecified part of lung Qualified Code(s): J18.9 - Pneumonia, unspecified organism (4) Sepsis Code(s): A41.9 - SEPSIS, UNSPECIFIED ORGANISM Qualifiers: Sepsis type: sepsis due to unspecified organism Qualified Code(s): A41.9 - Sepsis, unspecified organism (5) Respiratory failure Code(s): J96.90 - RESPIRATORY FAILURE, UNSP, UNSP W HYPOXIA OR HYPERCAPNIA (7) Acute hypoxemic respiratory failure Code(s): J96.01 - ACUTE RESPIRATORY FAILURE WITH HYPOXIA Assessment/Plan Problem List - Problems (1) Sepsis Code(s): A41.9 - SEPSIS, UNSPECIFIED ORGANISM (2) Neutropenia Code(s): D70.9 - NEUTROPENIA, UNSPECIFIED (3) Pneumonia Code(s): J18.9 - PNEUMONIA, UNSPECIFIED ORGANISM Qualifiers: Pneumonia type: due to unspecified organism Laterality: unspecified laterality Lung location: unspecified part of lung Qualified Code(s): J18.9 - Pneumonia, unspecified organism (4) Sepsis Code(s): A41.9 - SEPSIS, UNSPECIFIED ORGANISM Qualifiers: Sepsis type: sepsis due to unspecified organism Qualified Code(s): A41.9 - Sepsis, unspecified organism (5) Respiratory failure Code(s): J96.90 - RESPIRATORY FAILURE, UNSP, UNSP W HYPOXIA OR HYPERCAPNIA (7) Acute hypoxemic respiratory failure Code(s): J96.01 - ACUTE RESPIRATORY FAILURE WITH HYPOXIA Assessment/Plan IMP: Acute on chronic respiratory failure improved Sepsis improved Neutropenia resolved Malnutrition Laryngeal CA trach collar VTE prophylaxis DNR /DNI tracheal suctioning inhaled bronchodilators prednisone chest x-ray barbie RAMIREZ
--- NOTE | 2018-05-12 16:21 | PN ---
Teaching Attending Note Name of Resident: Shay Breaux ATTENDING PHYSICIAN STATEMENT I saw and evaluated the patient. I reviewed the resident's note and discussed the case with the resident. I agree with the resident's findings and plan as documented. SUBJECTIVE: no pain today. No fever or chills OBJECTIVE: NAD, trach, awake MMM, no JVD. Lungs: decreased breath sounds at bases.with rales on both sides Abd: slight distention . non tender. NL BS. GT in LUQ Ext: No edema or erythema. Assessment/Plan: Unfortunate 58 y/o gentleman with h/o laryngeal cancer s/p laryngectomy, chemo and radiation, DVT s/p IVC filter , who presented with SOB and AMS and was found to have acute hypoxic resp failure and sepsis . 1-Acute hypoxic resp failure resolved . - cont prednisone taper . day 2 on prednisone 30 2- H/o PE: has IVC filter. not on AC at home due to hematuria on AC . - Cont prophylactic Lovenox. 3- constipation : bowel regimen 4- Laryngeal cancer, s/p larygnectomy. cont treatment with out pt onc. cont fentanyl patch 5- Leakage around PEG: cont zinc oxide and anti-fungal 6- DNR . 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 cont to work on placement
--- NOTE | 2018-05-12 21:13 | PN ---
Physical Exam: SUBJECTIVE: Unchanged from previous day OBJECTIVE: Vital Signs Period Temp Pulse Resp BP Sys/Shrestha Pulse Ox Last 24 Hr 97.4 F-97.7 F 79-94 19-20 110-113/75-79 95-97 GENERAL: NAD, awake, alert, thin-appearing HEENT: SEVEN, sclera anicteric, MMM, temporal wasting noted NECK: Tracheostomy site intact without secretions LUNGS: CTA b/l. No accessory muscle use. Trach collar with blow-by oxygen HEART: RRR, normal S1 and S2 without murmur ABDOMEN: Soft, nondistended, nontender, normoactive bowel sounds. No hepatomegaly. GT with some excoriations around site MUSCULOSKELETAL: No CVA tenderness. UPPER EXTREMITIES: 2+ DP pulses, warm, well-perfused. no edema Psych: Depressed mood SKIN: Warm, dry, no rashes or lesions noted Active Medications Generic Name Dose Route Start Last Admin Trade Name Freq PRN Reason Stop Dose Admin Amino Acids 30 ml 04/21/18 17:30 05/12/18 18:02 Prosource No Carb Liquid Pkt PO 30 ml BID@0800,1730 YUKO Administration Bisacodyl 10 mg 04/25/18 20:30 05/10/18 20:11 Dulcolax Suppository - RC 10 mg Q3D YUKO Administration Docusate Sodium 100 mg 04/23/18 14:00 05/12/18 21:08 Colace Liquid - PO 100 mg TID YUKO Administration Enoxaparin Sodium 40 mg 05/08/18 12:45 05/12/18 11:12 Lovenox - SQ 40 mg DAILY YUKO Administration Fentanyl 1 patch 05/10/18 16:00 05/10/18 16:01 Duragesic 50mcg Patch - TD 05/17/18 15:59 1 patch Q72H YUKO Administration IV Flush 10 ml 04/23/18 16:59 05/08/18 14:18 Sheri-Cath Flush IVPUSH 10 ml PRN PRN Administration FLUSH Lidocaine/Aluminum/Magnesium/Simeth 5 ml 04/29/18 18:00 05/12/18 18:02 Magic Mouthwash *Sjr Formula* - MM Not Given Q6HPO YUKO Miscellaneous 1 each 05/02/18 13:55 05/10/18 16:03 Duragesic Patch Waste TD 1 each PRN PRN Administration PAIN Miscellaneous 1 each 05/10/18 15:49 Duragesic Patch Waste TD PRN PRN PAIN Multi-Ingredient Ointment 1 applic 05/10/18 22:00 05/12/18 21:08 Zinc Oxide TP 1 applic BID YUKO Administration Oxycodone HCl 5 mg 05/10/18 14:21 05/12/18 21:07 Roxicodone - PO 5 mg Q8H PRN Administration Pain 7-10 Pantoprazole Sodium 40 mg 04/29/18 10:00 05/12/18 11:12 Protonix Packets For Oral Suspension - NGT 40 mg DAILY YUKO Administration Polyethylene Glycol 17 gm 04/30/18 10:00 05/12/18 11:12 Miralax (For Daily Use) - PO 17 gm DAILY YUKO Administration Prednisone 30 mg 05/11/18 10:00 05/12/18 11:11 Deltasone - PO 30 mg DAILY YUKO Administration Senna 2 tab 04/27/18 22:00 05/11/18 22:28 Senna - PO 2 tab HS PRN Administration CONSTIPATION ASSESSMENT/PLAN: 1) Abdominal Distention --Likely 2/2 to ileus from pain medication --Colace liquid on board --Senna 2 tabs HS --Dulcolax suppository q3Day --SSE as needed 2) Acute hypoxic respiratory dysfunction --Weaned off ventilator; tolerating trach collar at 40% --Continue to wean off high O2 percentage as tolerated --Maintain SpO2 >90% --Aspiration precautions: HOB elevated --Continue Fentanyl 50mcg Patch --Prednisone 30mg qDaily today; continue to taper off 3) Severe sepsis 2/2 to aspiration PNA --Resolved --ID on board: --Completed 5 days of IV ABX 4) GTube leak --GT adjusted; keep flush against abdomen --Zinc oxide around site 5) ? Tardive dyskinesia --Resolved; off Lexapro FEN: Fluids: None Nutrition: Continue Jevity feeds, add Prosources 30mg BID PPX: DVT - Lovenox 40mg qDaily Code Status: DNR; confirmed with pt and with his at bedside Dispo: d/c planning; pt supposedly medically accepted to 2 facilities pending discussion with ; continue to wean O2 requirements Case discussed with Dr. Rolando Breaux, DO - IM PGY-1 Visit type - Emergency Visit Emergency Visit: No - New Patient This patient is new to me today: No - Critical Care Critical Care patient: No
[2018-05-13] MEDS: DOCUSATE NA 100 MG/10 ML UNIT-DOSE CUPS PO SCH ×3 (05:35→21:36)
[2018-05-13] MEDS: MAG HYDROX/ALH/SMC/DPHA/LIDO 240 ML MOUTHWASH MM SCH ×4 (05:38→23:52)
[2018-05-13] MEDS: oxyCODONE HCL 5 MG TABLET PO PRN (07:36)
[2018-05-13] MEDS: AMINO ACIDS/PROTEIN HYDROLYS 30 ML LIQUID.PKT PO SCH ×2 (07:36→18:27)
[2018-05-13 08:52] LABS: CHLORIDE 90 mmol/L (98-107); POTASSIUM 4.5 mmol/L (3.5-5.1); SODIUM 128 mmol/L (136-145)
[2018-05-13 08:59] LABS: ANION GAP 10 (8-16); BLOOD UREA NITROGEN 15 mg/dL (7-18); CALCIUM 7.7 mg/dL (8.5-10.1); CO2 28 mmol/L (21-32); CREATININE 0.4 mg/dL (0.7-1.3); GLUCOSE,RANDOM 108 mg/dL (74-106)
--- NOTE | 2018-05-13 10:10 | PN ---
Teaching Attending Note Name of Resident: Shay Breaux ATTENDING PHYSICIAN STATEMENT I saw and evaluated the patient. I reviewed the resident's note and discussed the case with the resident. I agree with the resident's findings and plan as documented. SUBJECTIVE: No fever or chills . RN noticed R hand drop after indicated that. pt never complained about it . no pain. OBJECTIVE: NAD, trach, awake MMM, no JVD. Lungs: decreased breath sounds at bases.with rales on both sides Abd: slight distention . non tender. NL BS. GT in LUQ Ext: No edema or erythema. Neuro : EOMI, round equal pupils, nl facial droop., tongue at mid line. nl facial sensation. Strength : RUE: shoulder shrug 5/5 . biceps , triceps 5/5 , wrist flexion 5/5 , wrist extension 5/5 , hand child care centre director 5/5 LUE : shoulder shrug 5/5 . biceps , triceps 5/5 , wrist flexion 5/5 , wrist extension 0/5, finger flexion at MTP joint 4/5. extension at MTP 0/5. fingers abduction 0/5. fingers adduction nl. hand child care centre director almost nl . LE : 5/5 in hip flexion, knee flexion and extension , ankle dorsiflexion and plantar flexion . reflexes 2+ knee jerk and 1+ biceps b/l nl sensation to light touch . Nl nose to finger on both sides Assessment/Plan: Unfortunate 58 y/o gentleman with h/o laryngeal cancer s/p laryngectomy, chemo and radiation, DVT s/p IVC filter , who presented with SOB and AMS and was found to have acute hypoxic resp failure and sepsis . 1- Left hand drop/Radial nerve palsy : unclear etiology. In DDx is mononeuropathy ( inflammatory or nutritional deficiency ) , brachial plexus compression ( metastasis ) , or Nerve compression at C spine . - check MRI of C spine. need to r/o Mets - check B 12 - neuro consult 2-hypnatremia : ? volume depletion . unlikely has SIADh - repeat U and S osm , U Na - start NS - decrease free water in TF . 3-Acute hypoxic resp failure resolved . - cont prednisone taper . daecrease to 20 daily starting tomorrow 4- H/o PE: has IVC filter. not on AC at home due to hematuria on AC . - Cont prophylactic Lovenox. 5- constipation : bowel regimen 6- Laryngeal cancer, s/p larygnectomy. cont treatment with out pt onc. cont fentanyl patch 7- Leakage around PEG: cont zinc oxide and anti-fungal 8- DNR . HLOC
--- NOTE | 2018-05-13 10:20 | PN ---
Progress Note, Physician History of Present Illness: pulmonary alert,on trach collar,comfortable,-resp distress - Current Medication List Current Medications: Active Medications Amino Acids (Prosource No Carb Liquid Pkt) 30 ml PO BID@0800,1730 [facility] Last Admin: 05/13/18 07:36 Dose: 30 ml Bisacodyl (Dulcolax Suppository -) 10 mg RC Q3D [facility] Last Admin: 05/10/18 20:11 Dose: 10 mg Docusate Sodium (Colace Liquid -) 100 mg PO TID [facility] Last Admin: 05/13/18 05:35 Dose: Not Given Enoxaparin Sodium (Lovenox -) 40 mg SQ DAILY [facility] Last Admin: 05/12/18 11:12 Dose: 40 mg Fentanyl (Duragesic 50mcg Patch -) 1 patch TD Q72H [facility] Stop: 05/17/18 15:59 Last Admin: 05/10/18 16:01 Dose: 1 patch IV Flush (Sheri-Cath Flush) 10 ml IVPUSH PRN PRN PRN Reason: FLUSH Last Admin: 05/08/18 14:18 Dose: 10 ml Sodium Chloride (Normal Saline -) 1,000 mls @ 75 mls/hr IV ASDIR [facility] Lidocaine/Aluminum/Magnesium/Simeth (Magic Mouthwash *Sjr Formula* -) 5 ml MM Q6HPO [facility] Last Admin: 05/13/18 05:38 Dose: Not Given Miscellaneous (Duragesic Patch Waste) 1 each TD PRN PRN PRN Reason: PAIN Last Admin: 05/10/18 16:03 Dose: 1 each Miscellaneous (Duragesic Patch Waste) 1 each TD PRN PRN PRN Reason: PAIN Multi-Ingredient Ointment (Zinc Oxide) 1 applic TP BID [facility] Last Admin: 05/12/18 21:08 Dose: 1 applic Oxycodone HCl (Roxicodone -) 5 mg PO Q8H PRN PRN Reason: Pain 7-10 Last Admin: 05/13/18 07:36 Dose: 5 mg Pantoprazole Sodium (Protonix Packets For Oral Suspension -) 40 mg NGT DAILY [facility] Last Admin: 05/12/18 11:12 Dose: 40 mg Polyethylene Glycol (Miralax (For Daily Use) -) 17 gm PO DAILY [facility] Last Admin: 05/12/18 11:12 Dose: 17 gm Prednisone (Deltasone -) 30 mg PO DAILY YUKO Last Admin: 05/12/18 11:11 Dose: 30 mg Senna (Senna -) 2 tab PO HS PRN PRN Reason: CONSTIPATION Last Admin: 05/11/18 22:28 Dose: 2 tab - Objective Vital Signs: Vital Signs Temperature 97.9 F 05/13/18 09:16 Pulse Rate 77 05/13/18 09:16 Respiratory Rate 18 05/13/18 09:16 Blood Pressure 104/72 05/13/18 09:16 O2 Sat by Pulse Oximetry (%) 97 05/12/18 21:41 Constitutional: Yes: Calm, Thin Eyes: Yes: WNL HENT: Yes: WNL Neck: Yes: Supple (trach) Cardiovascular: Yes: Regular Rate and Rhythm, S1, S2 Respiratory: Yes: Rhonchi (scattered rhonchi) Gastrointestinal: Yes: Normal Bowel Sounds, Soft Extremities: Yes: WNL Edema: No Labs: CBC, BMP 05/05/18 06:16 05/13/18 08:05 INR, PTT INR 1.32 (0.82-1.09) H 04/18/18 06:00 Problem List - Problems (1) Sepsis Code(s): A41.9 - SEPSIS, UNSPECIFIED ORGANISM (2) Neutropenia Code(s): D70.9 - NEUTROPENIA, UNSPECIFIED (3) Pneumonia Code(s): J18.9 - PNEUMONIA, UNSPECIFIED ORGANISM Qualifiers: Pneumonia type: due to unspecified organism Laterality: unspecified laterality Lung location: unspecified part of lung Qualified Code(s): J18.9 - Pneumonia, unspecified organism (4) Sepsis Code(s): A41.9 - SEPSIS, UNSPECIFIED ORGANISM Qualifiers: Sepsis type: sepsis due to unspecified organism Qualified Code(s): A41.9 - Sepsis, unspecified organism (5) Respiratory failure Code(s): J96.90 - RESPIRATORY FAILURE, UNSP, UNSP W HYPOXIA OR HYPERCAPNIA (7) Acute hypoxemic respiratory failure Code(s): J96.01 - ACUTE RESPIRATORY FAILURE WITH HYPOXIA Assessment/Plan Problem List - Problems (1) Sepsis Code(s): A41.9 - SEPSIS, UNSPECIFIED ORGANISM (2) Neutropenia Code(s): D70.9 - NEUTROPENIA, UNSPECIFIED (3) Pneumonia Code(s): J18.9 - PNEUMONIA, UNSPECIFIED ORGANISM Qualifiers: Pneumonia type: due to unspecified organism Laterality: unspecified laterality Lung location: unspecified part of lung Qualified Code(s): J18.9 - Pneumonia, unspecified organism (4) Sepsis Code(s): A41.9 - SEPSIS, UNSPECIFIED ORGANISM Qualifiers: Sepsis type: sepsis due to unspecified organism Qualified Code(s): A41.9 - Sepsis, unspecified organism (5) Respiratory failure Code(s): J96.90 - RESPIRATORY FAILURE, UNSP, UNSP W HYPOXIA OR HYPERCAPNIA (7) Acute hypoxemic respiratory failure Code(s): J96.01 - ACUTE RESPIRATORY FAILURE WITH HYPOXIA Assessment/Plan IMP: Acute on chronic respiratory failure improved Sepsis improved Neutropenia resolved Malnutrition Laryngeal CA trach collar VTE prophylaxis DNR /DNI tracheal suctioning inhaled bronchodilators prednisone chest x-ray today DR RAMIREZ
--- NOTE | 2018-05-13 10:22 | PN ---
Progress Note, Physician History of Present Illness: comfortable on trach collar - Current Medication List Current Medications: Active Medications Amino Acids (Prosource No Carb Liquid Pkt) 30 ml PO BID@0800,1730 [facility] Last Admin: 05/13/18 07:36 Dose: 30 ml Bisacodyl (Dulcolax Suppository -) 10 mg RC Q3D [facility] Last Admin: 05/10/18 20:11 Dose: 10 mg Docusate Sodium (Colace Liquid -) 100 mg PO TID [facility] Last Admin: 05/13/18 05:35 Dose: Not Given Enoxaparin Sodium (Lovenox -) 40 mg SQ DAILY [facility] Last Admin: 05/12/18 11:12 Dose: 40 mg Fentanyl (Duragesic 50mcg Patch -) 1 patch TD Q72H [facility] Stop: 05/17/18 15:59 Last Admin: 05/10/18 16:01 Dose: 1 patch IV Flush (Sheri-Cath Flush) 10 ml IVPUSH PRN PRN PRN Reason: FLUSH Last Admin: 05/08/18 14:18 Dose: 10 ml Sodium Chloride (Normal Saline -) 1,000 mls @ 75 mls/hr IV ASDIR [facility] Lidocaine/Aluminum/Magnesium/Simeth (Magic Mouthwash *Sjr Formula* -) 5 ml MM Q6HPO [facility] Last Admin: 05/13/18 05:38 Dose: Not Given Miscellaneous (Duragesic Patch Waste) 1 each TD PRN PRN PRN Reason: PAIN Last Admin: 05/10/18 16:03 Dose: 1 each Miscellaneous (Duragesic Patch Waste) 1 each TD PRN PRN PRN Reason: PAIN Multi-Ingredient Ointment (Zinc Oxide) 1 applic TP BID [facility] Last Admin: 05/12/18 21:08 Dose: 1 applic Oxycodone HCl (Roxicodone -) 5 mg PO Q8H PRN PRN Reason: Pain 7-10 Last Admin: 05/13/18 07:36 Dose: 5 mg Pantoprazole Sodium (Protonix Packets For Oral Suspension -) 40 mg NGT DAILY [facility] Last Admin: 05/12/18 11:12 Dose: 40 mg Polyethylene Glycol (Miralax (For Daily Use) -) 17 gm PO DAILY [facility] Last Admin: 05/12/18 11:12 Dose: 17 gm Prednisone (Deltasone -) 30 mg PO DAILY YUKO Last Admin: 05/12/18 11:11 Dose: 30 mg Senna (Senna -) 2 tab PO HS PRN PRN Reason: CONSTIPATION Last Admin: 05/11/18 22:28 Dose: 2 tab - Objective Vital Signs: Vital Signs Temperature 97.9 F 05/13/18 09:16 Pulse Rate 77 05/13/18 09:16 Respiratory Rate 18 05/13/18 09:16 Blood Pressure 104/72 05/13/18 09:16 O2 Sat by Pulse Oximetry (%) 97 05/12/18 21:41 Constitutional: Yes: No Distress, Calm Cardiovascular: Yes: Regular Rate and Rhythm Respiratory: Yes: Regular, CTA Bilaterally Gastrointestinal: Yes: Normal Bowel Sounds, Soft, Other (peg in place) Musculoskeletal: Yes: WNL Extremities: Yes: WNL Neurological: Yes: Alert, Oriented Psychiatric: Yes: Alert, Oriented Labs: CBC, BMP 05/05/18 06:16 05/13/18 08:05 INR, PTT INR 1.32 (0.82-1.09) H 04/18/18 06:00 Assessment/Plan Problem List - Problems (1) Sepsis Code(s): A41.9 - SEPSIS, UNSPECIFIED ORGANISM Qualifiers: Sepsis type: sepsis due to unspecified organism Qualified Code(s): A41.9 - Sepsis, unspecified organism (2) Pneumonia Code(s): J18.9 - PNEUMONIA, UNSPECIFIED ORGANISM Qualifiers: Pneumonia type: due to unspecified organism Laterality: unspecified laterality Lung location: unspecified part of lung Qualified Code(s): J18.9 - Pneumonia, unspecified organism resp failure hypoxia Problem List - Problems (1) Sepsis Code(s): A41.9 - SEPSIS, UNSPECIFIED ORGANISM (2) Neutropenia Code(s): D70.9 - NEUTROPENIA, UNSPECIFIED (3) Pneumonia Code(s): J18.9 - PNEUMONIA, UNSPECIFIED ORGANISM Qualifiers: Pneumonia type: due to unspecified organism Laterality: unspecified laterality Lung location: unspecified part of lung Qualified Code(s): J18.9 - Pneumonia, unspecified organism (4) Sepsis Code(s): A41.9 - SEPSIS, UNSPECIFIED ORGANISM Qualifiers: Sepsis type: sepsis due to unspecified organism Qualified Code(s): A41.9 - Sepsis, unspecified organism (5) Respiratory failure Code(s): J96.90 - RESPIRATORY FAILURE, UNSP, UNSP W HYPOXIA OR HYPERCAPNIA (7) Acute hypoxemic respiratory failure Code(s): J96.01 - ACUTE RESPIRATORY FAILURE WITH HYPOXIA Assessment/Plan 58 y.o. 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
[2018-05-13] MEDS: PANTOPRAZOLE SOD 40 MG SUSPENSION PACKET NGT SCH (10:24)
[2018-05-13] MEDS: SODIUM CHLORIDE 1,000 ML IV SCH (10:24)
[2018-05-13] MEDS: predniSONE 20 MG TABLET (UD) PO SCH (10:24)
[2018-05-13] MEDS: POLYETHYLENE GLYCOL 3350 119 GM BTL PO SCH (10:24)
[2018-05-13] MEDS: ENOXAPARIN NA (PORCINE) 40 MG/0.4 ML DISP.SYRIN SQ SCH (10:25)
[2018-05-13] MEDS: ZINC OXIDE 20% TOPICAL OINTMENT 30 GM TUBE TP SCH ×2 (10:26→21:36)
[2018-05-13] MEDS: fentaNYL 50mcg/hr PATCH.TD72 TD SCH (15:30)
[2018-05-13] MEDS: FENTANYL PATCH WASTE TD PRN (15:36)
--- NOTE | 2018-05-13 16:48 | PN ---
Addendum entered and electronically signed by Shay Breaux, RESIDENT 05/14/18 08:18: ADDENDUM: Problem number next: Hyponatremia -- 128 today w/o significant deficits in mentation. Rpt urine Na and urine osm. Doubt interacting medications. Reduced free water with feeds (from 10 to 8) to limit downtrend. Original Note: Physical Exam: SUBJECTIVE: No complaints voiced, did not want to share about his hand. No acute events overnight noted OBJECTIVE: Vital Signs Period Temp Pulse Resp BP Sys/Shrestha Pulse Ox Last 24 Hr 97.4 F-98.0 F 77-92 18-20 104-116/72-84 91-97 GENERAL: NAD, awake, alert, thin-appearing HEENT: SEVEN, sclera anicteric, MMM, temporal wasting noted NECK: Tracheostomy site intact without secretions LUNGS: CTA b/l. No accessory muscle use. Trach collar with blow-by oxygen HEART: RRR, normal S1 and S2 without murmur ABDOMEN: Soft, nondistended, nontender, normoactive bowel sounds. No hepatomegaly. GT with some excoriations around site MUSCULOSKELETAL: No CVA tenderness. UPPER EXTREMITIES: 2+ DP pulses, warm, well-perfused. no edema NEURO: CN II-XII (voice cannot be tested) intact. L hand strength 1/5 with wrist extension and 1-2/5 with finger extension. All other areas strength 5/5 and sensation intact. Bicep reflex b/l 2/4 Psych: Depressed mood SKIN: Warm, dry, no rashes or lesions note Laboratory Results - last 24 hr 05/13/18 05/13/18 05/13/18 08:05 14:45 14:45 Sodium 128 L Potassium 4.5 Chloride 90 L Carbon Dioxide 28 Anion Gap 10 BUN 15 Creatinine 0.4 L Creat Clearance w eGFR > 60 Random Glucose 108 H Calcium 7.7 L Urine Osmolality 645 Ur Random Sodium 92 Active Medications Generic Name Dose Route Start Last Admin Trade Name Freq PRN Reason Stop Dose Admin Amino Acids 30 ml 04/21/18 17:30 05/13/18 07:36 Prosource No Carb Liquid Pkt PO 30 ml BID@0800,1730 YUKO Administration Bisacodyl 10 mg 04/25/18 20:30 05/10/18 20:11 Dulcolax Suppository - RC 10 mg Q3D YUKO Administration Docusate Sodium 100 mg 04/23/18 14:00 05/13/18 15:30 Colace Liquid - PO 100 mg TID YUKO Administration Enoxaparin Sodium 40 mg 05/08/18 12:45 05/13/18 10:25 Lovenox - SQ 40 mg DAILY YUKO Administration Fentanyl 1 patch 05/10/18 16:00 05/13/18 15:30 Duragesic 50mcg Patch - TD 05/17/18 15:59 1 patch Q72H YUKO Administration IV Flush 10 ml 04/23/18 16:59 05/08/18 14:18 Sheri-Cath Flush IVPUSH 10 ml PRN PRN Administration FLUSH Sodium Chloride 1,000 mls @ 75 mls/hr 05/13/18 09:15 05/13/18 10:24 Normal Saline - IV 75 mls/hr ASDIR YUKO Administration Lidocaine/Aluminum/Magnesium/Simeth 5 ml 04/29/18 18:00 05/13/18 12:12 Magic Mouthwash *Sjr Formula* - MM Not Given Q6HPO YUKO Miscellaneous 1 each 05/10/18 15:49 05/13/18 15:36 Duragesic Patch Waste TD 1 each PRN PRN Administration PAIN Multi-Ingredient Ointment 1 applic 05/10/18 22:00 05/13/18 10:26 Zinc Oxide TP 1 applic BID YUKO Administration Oxycodone HCl 5 mg 05/10/18 14:21 05/13/18 07:36 Roxicodone - PO 5 mg Q8H PRN Administration Pain 7-10 Pantoprazole Sodium 40 mg 04/29/18 10:00 05/13/18 10:24 Protonix Packets For Oral Suspension - NGT 40 mg DAILY YUKO Administration Polyethylene Glycol 17 gm 04/30/18 10:00 05/13/18 10:24 Miralax (For Daily Use) - PO 17 gm DAILY YUKO Administration Prednisone 20 mg 05/14/18 10:00 Deltasone - PO DAILY YUKO Senna 2 tab 04/27/18 22:00 05/11/18 22:28 Senna - PO 2 tab HS PRN Administration CONSTIPATION ASSESSMENT/PLAN: 1) L hand mononeuropathy --DDx of mets to spine, compression neuropathy at the level of wrist vs. elbow --MRI C-spine to r/o mets --Consult neurology --Discussed with and patient about the plan for pt's mononeuropathy. Explained and encouraged pt to be forward with troubles ailing him as minor symptoms may mean other processes occurring --If MRI C-spine + for mets; will contact oncology (pt and requested Dr. Cooper if it comes to that) 2) Abdominal Distention --Likely 2/2 to ileus from pain medication --Colace liquid on board --Senna 2 tabs HS --Dulcolax suppository q3Day --SSE as needed 3) Acute hypoxic respiratory dysfunction --Weaned off ventilator; tolerating trach collar at 40% --Continue to wean off high O2 percentage as tolerated --Maintain SpO2 >90% --Aspiration precautions: HOB elevated --Continue Fentanyl 50mcg Patch --Prednisone 30mg qDaily today; continue to taper off 4) Severe sepsis 2/2 to aspiration PNA --Resolved --ID on board: --Completed 5 days of IV ABX 5) GTube leak --GT adjusted; keep flush against abdomen --Zinc oxide around site FEN: Fluids: None Nutrition: Continue Jevity feeds, add Prosources 30mg BID PPX: DVT - Lovenox 40mg qDaily Code Status: DNR; confirmed with pt and with his at bedside Dispo: d/c planning; pt supposedly medically accepted to 2 facilities pending discussion with ; continue to wean O2 requirements; MRI Case discussed with Dr. Rolando Breaux, DO - IM PGY-1 Visit type - Emergency Visit Emergency Visit: No - New Patient This patient is new to me today: No - Critical Care Critical Care patient: No
[2018-05-13] MEDS ORDERED: INSULIN (NOVOLOG) ASPART 100 UNITS/ML 10ML VIAL ONE (18:31)
[2018-05-13] MEDS ORDERED: PT OWN MED DRAWER 7, Y5N ONE (18:31)
[2018-05-13] MEDS: BISACODYL 10 MG SUPP.RECT RC SCH (21:36)
--- NOTE | 2018-05-13 23:09 | CONSULT ---
Consult - text type - Consultation Consultation Note: NEUROLOGY CONSULTATION is greatly appreciated: This 58 yo RH man with h/o laryngeal cancer is s/p trache and g-tube. Admitted 04/16/18 with dyspnia, fever and pneumonia. Now, the patient notes 6 or 7 days of left arm hand weakness of sudden onset. EVIE: Neck supple. Full Shoulder ROM. No axillary masses. No bruits. NEURO: Awake, alert. MS probably normal. CN II-XII: normal Motor: Isolated weakness of left hand finger and thumb extensors, sparing thumb abduction, intrinsics and triceps. Normal reflexes. Toes downgoing. Coord: No dystaxia. Sensory: Normal Gait: deferred IMP: Left radial Mononeuropathy (Tuesday Night Palsy). SUGGEST: Bedside OT Physiatry consultation and EMG/NCS left arm. Elevate left triceps region on pillow. Thank you very much, Theodore Salazar MD
[2018-05-14] MEDS: SODIUM CHLORIDE 1,000 ML IV SCH ×3 (00:01→13:48)
[2018-05-14] MEDS: DOCUSATE NA 100 MG/10 ML UNIT-DOSE CUPS PO SCH ×3 (05:38→21:18)
[2018-05-14] MEDS: MAG HYDROX/ALH/SMC/DPHA/LIDO 240 ML MOUTHWASH MM SCH ×4 (05:38→23:03)
[2018-05-14 07:57] LABS: CHLORIDE 92 mmol/L (98-107); POTASSIUM 4.3 mmol/L (3.5-5.1); SODIUM 130 mmol/L (136-145)
[2018-05-14 08:07] LABS: ANION GAP 12 (8-16); BLOOD UREA NITROGEN 15 mg/dL (7-18); CALCIUM 7.4 mg/dL (8.5-10.1); CO2 26 mmol/L (21-32); CREATININE 0.4 mg/dL (0.7-1.3); GLUCOSE,RANDOM 112 mg/dL (74-106)
[2018-05-14] MEDS: AMINO ACIDS/PROTEIN HYDROLYS 30 ML LIQUID.PKT PO SCH ×2 (08:42→18:10)
[2018-05-14] MEDS ORDERED: PT OWN MED DRAWER 7, Y5N ONE ×3 (09:51→19:02)
--- NOTE | 2018-05-14 09:52 | PN ---
Progress Note, Physician History of Present Illness: PULMONARY AWAKE,ALERT ON TRACH COLLAR,-RESP DISTRESS - Current Medication List Current Medications: Active Medications Amino Acids (Prosource No Carb Liquid Pkt) 30 ml PO BID@0800,1730 [facility] Last Admin: 05/14/18 08:42 Dose: 30 ml Bisacodyl (Dulcolax Suppository -) 10 mg RC Q3D [facility] Last Admin: 05/13/18 21:36 Dose: Not Given Docusate Sodium (Colace Liquid -) 100 mg PO TID [facility] Last Admin: 05/14/18 05:38 Dose: Not Given Enoxaparin Sodium (Lovenox -) 40 mg SQ DAILY [facility] Last Admin: 05/13/18 10:25 Dose: 40 mg Fentanyl (Duragesic 50mcg Patch -) 1 patch TD Q72H [facility] Stop: 05/17/18 15:59 Last Admin: 05/13/18 15:30 Dose: 1 patch IV Flush (Sheri-Cath Flush) 10 ml IVPUSH PRN PRN PRN Reason: FLUSH Last Admin: 05/08/18 14:18 Dose: 10 ml Sodium Chloride (Normal Saline -) 1,000 mls @ 75 mls/hr IV ASDIR [facility] Last Admin: 05/14/18 00:01 Dose: 75 mls/hr Lidocaine/Aluminum/Magnesium/Simeth (Magic Mouthwash *Sjr Formula* -) 5 ml MM Q6HPO [facility] Last Admin: 05/14/18 05:38 Dose: Not Given Miscellaneous (Duragesic Patch Waste) 1 each TD PRN PRN PRN Reason: PAIN Last Admin: 05/13/18 15:36 Dose: 1 each Multi-Ingredient Ointment (Zinc Oxide) 1 applic TP BID [facility] Last Admin: 05/13/18 21:36 Dose: 1 applic Oxycodone HCl (Roxicodone -) 5 mg PO Q8H PRN PRN Reason: Pain 7-10 Last Admin: 05/13/18 07:36 Dose: 5 mg Pantoprazole Sodium (Protonix Packets For Oral Suspension -) 40 mg NGT DAILY [facility] Last Admin: 05/13/18 10:24 Dose: 40 mg Polyethylene Glycol (Miralax (For Daily Use) -) 17 gm PO DAILY [facility] Last Admin: 05/13/18 10:24 Dose: 17 gm Prednisone (Deltasone -) 20 mg PO DAILY [facility] Senna (Senna -) 2 tab PO HS PRN PRN Reason: CONSTIPATION Last Admin: 05/11/18 22:28 Dose: 2 tab - Objective Vital Signs: Vital Signs Temperature 97.5 F L 05/14/18 09:22 Pulse Rate 83 05/14/18 09:22 Respiratory Rate 18 05/14/18 09:22 Blood Pressure 119/84 05/14/18 09:22 O2 Sat by Pulse Oximetry (%) 94 L 05/14/18 08:30 Constitutional: Yes: Calm, Thin Eyes: Yes: WNL HENT: Yes: WNL Neck: Yes: Supple Cardiovascular: Yes: Regular Rate and Rhythm, S1, S2 Respiratory: Yes: Rhonchi (SCATTERED BOBBY RHONCHI) Gastrointestinal: Yes: Normal Bowel Sounds, Soft Musculoskeletal: Yes: Muscle Weakness (LEFT ARM WEAKNESS) Extremities: Yes: WNL Edema: No Labs: CBC, BMP 05/05/18 06:16 05/14/18 06:10 INR, PTT INR 1.32 (0.82-1.09) H 04/18/18 06:00 - ....Imaging Chest X-ray: Report Reviewed, Image Reviewed Problem List - Problems (1) Sepsis Code(s): A41.9 - SEPSIS, UNSPECIFIED ORGANISM (2) Neutropenia Code(s): D70.9 - NEUTROPENIA, UNSPECIFIED (3) Pneumonia Code(s): J18.9 - PNEUMONIA, UNSPECIFIED ORGANISM Qualifiers: Pneumonia type: due to unspecified organism Laterality: unspecified laterality Lung location: unspecified part of lung Qualified Code(s): J18.9 - Pneumonia, unspecified organism (4) Sepsis Code(s): A41.9 - SEPSIS, UNSPECIFIED ORGANISM Qualifiers: Sepsis type: sepsis due to unspecified organism Qualified Code(s): A41.9 - Sepsis, unspecified organism (5) Respiratory failure Code(s): J96.90 - RESPIRATORY FAILURE, UNSP, UNSP W HYPOXIA OR HYPERCAPNIA (7) Acute hypoxemic respiratory failure Code(s): J96.01 - ACUTE RESPIRATORY FAILURE WITH HYPOXIA Assessment/Plan Problem List - Problems (1) Sepsis Code(s): A41.9 - SEPSIS, UNSPECIFIED ORGANISM (2) Neutropenia Code(s): D70.9 - NEUTROPENIA, UNSPECIFIED (3) Pneumonia Code(s): J18.9 - PNEUMONIA, UNSPECIFIED ORGANISM Qualifiers: Pneumonia type: due to unspecified organism Laterality: unspecified laterality Lung location: unspecified part of lung Qualified Code(s): J18.9 - Pneumonia, unspecified organism (4) Sepsis Code(s): A41.9 - SEPSIS, UNSPECIFIED ORGANISM Qualifiers: Sepsis type: sepsis due to unspecified organism Qualified Code(s): A41.9 - Sepsis, unspecified organism (5) Respiratory failure Code(s): J96.90 - RESPIRATORY FAILURE, UNSP, UNSP W HYPOXIA OR HYPERCAPNIA (7) Acute hypoxemic respiratory failure Code(s): J96.01 - ACUTE RESPIRATORY FAILURE WITH HYPOXIA Assessment/Plan IMP: Acute on chronic respiratory failure improved Sepsis improved Neutropenia resolved Malnutrition Laryngeal CA trach collar VTE prophylaxis DNR /DNI tracheal suctioning inhaled bronchodilators prednisone DR RAMIREZ
[2018-05-14] MEDS: PANTOPRAZOLE SOD 40 MG SUSPENSION PACKET NGT SCH (09:53)
[2018-05-14] MEDS: ENOXAPARIN NA (PORCINE) 40 MG/0.4 ML DISP.SYRIN SQ SCH (09:53)
[2018-05-14] MEDS: POLYETHYLENE GLYCOL 3350 119 GM BTL PO SCH (09:53)
[2018-05-14] MEDS: predniSONE 20 MG TABLET (UD) PO SCH (09:53)
[2018-05-14] MEDS: oxyCODONE HCL 5 MG TABLET PO PRN (09:56)
--- NOTE | 2018-05-14 11:21 | PN ---
Progress Note, Physician History of Present Illness: no new issues comfortable on trach collar - Current Medication List Current Medications: Active Medications Amino Acids (Prosource No Carb Liquid Pkt) 30 ml PO BID@0800,1730 [facility] Last Admin: 05/14/18 08:42 Dose: 30 ml Bisacodyl (Dulcolax Suppository -) 10 mg RC Q3D [facility] Last Admin: 05/13/18 21:36 Dose: Not Given Docusate Sodium (Colace Liquid -) 100 mg PO TID [facility] Last Admin: 05/14/18 05:38 Dose: Not Given Enoxaparin Sodium (Lovenox -) 40 mg SQ DAILY [facility] Last Admin: 05/14/18 09:53 Dose: 40 mg Fentanyl (Duragesic 50mcg Patch -) 1 patch TD Q72H [facility] Stop: 05/17/18 15:59 Last Admin: 05/13/18 15:30 Dose: 1 patch IV Flush (Sheri-Cath Flush) 10 ml IVPUSH PRN PRN PRN Reason: FLUSH Last Admin: 05/08/18 14:18 Dose: 10 ml Sodium Chloride (Normal Saline -) 1,000 mls @ 75 mls/hr IV ASDIR [facility] Last Admin: 05/14/18 09:59 Dose: Not Given Lidocaine/Aluminum/Magnesium/Simeth (Magic Mouthwash *Sjr Formula* -) 5 ml MM Q6HPO [facility] Last Admin: 05/14/18 05:38 Dose: Not Given Miscellaneous (Duragesic Patch Waste) 1 each TD PRN PRN PRN Reason: PAIN Last Admin: 05/13/18 15:36 Dose: 1 each Multi-Ingredient Ointment (Zinc Oxide) 1 applic TP BID [facility] Last Admin: 05/13/18 21:36 Dose: 1 applic Oxycodone HCl (Roxicodone -) 5 mg PO Q8H PRN PRN Reason: Pain 7-10 Last Admin: 05/14/18 09:56 Dose: 5 mg Pantoprazole Sodium (Protonix Packets For Oral Suspension -) 40 mg NGT DAILY [facility] Last Admin: 05/14/18 09:53 Dose: 40 mg Polyethylene Glycol (Miralax (For Daily Use) -) 17 gm PO DAILY [facility] Last Admin: 05/14/18 09:53 Dose: 17 gm Prednisone (Deltasone -) 20 mg PO DAILY [facility] Last Admin: 05/14/18 09:53 Dose: 20 mg Senna (Senna -) 2 tab PO HS PRN PRN Reason: CONSTIPATION Last Admin: 05/11/18 22:28 Dose: 2 tab - Objective Vital Signs: Vital Signs Temperature 97.5 F L 05/14/18 09:22 Pulse Rate 83 05/14/18 09:22 Respiratory Rate 18 05/14/18 09:22 Blood Pressure 119/84 05/14/18 09:22 O2 Sat by Pulse Oximetry (%) 100 05/14/18 09:00 Constitutional: Yes: No Distress, Calm Cardiovascular: Yes: Regular Rate and Rhythm Respiratory: Yes: Regular, CTA Bilaterally Gastrointestinal: Yes: Normal Bowel Sounds, Soft, Other (peg in place) Extremities: Yes: WNL Neurological: Yes: Alert, Oriented Psychiatric: Yes: Alert Labs: CBC, BMP 05/05/18 06:16 05/14/18 06:10 INR, PTT INR 1.32 (0.82-1.09) H 04/18/18 06:00 Assessment/Plan Problem List - Problems (1) Sepsis Code(s): A41.9 - SEPSIS, UNSPECIFIED ORGANISM Qualifiers: Sepsis type: sepsis due to unspecified organism Qualified Code(s): A41.9 - Sepsis, unspecified organism (2) Pneumonia Code(s): J18.9 - PNEUMONIA, UNSPECIFIED ORGANISM Qualifiers: Pneumonia type: due to unspecified organism Laterality: unspecified laterality Lung location: unspecified part of lung Qualified Code(s): J18.9 - Pneumonia, unspecified organism resp failure hypoxia Problem List - Problems (1) Sepsis Code(s): A41.9 - SEPSIS, UNSPECIFIED ORGANISM (2) Neutropenia Code(s): D70.9 - NEUTROPENIA, UNSPECIFIED (3) Pneumonia Code(s): J18.9 - PNEUMONIA, UNSPECIFIED ORGANISM Qualifiers: Pneumonia type: due to unspecified organism Laterality: unspecified laterality Lung location: unspecified part of lung Qualified Code(s): J18.9 - Pneumonia, unspecified organism (4) Sepsis Code(s): A41.9 - SEPSIS, UNSPECIFIED ORGANISM Qualifiers: Sepsis type: sepsis due to unspecified organism Qualified Code(s): A41.9 - Sepsis, unspecified organism (5) Respiratory failure Code(s): J96.90 - RESPIRATORY FAILURE, UNSP, UNSP W HYPOXIA OR HYPERCAPNIA (7) Acute hypoxemic respiratory failure Code(s): J96.01 - ACUTE RESPIRATORY FAILURE WITH HYPOXIA Assessment/Plan 58 y.o. 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
[2018-05-14] MEDS: ZINC OXIDE 20% TOPICAL OINTMENT 30 GM TUBE TP SCH ×2 (11:39→21:18)
--- NOTE | 2018-05-14 16:30 | PN ---
Physical Exam: SUBJECTIVE: Patient is a 58 year old male with laryngeal cancer s/p trach, g tube, DVT s/p IVC filter who was admited with acute hypoxic respiratory failure and sepsis. He has also developed a left radial mononeuropathy. MRI of the spine was unable to be obtained. Patient had no acut events overnight. Nurse reports patient appears more depressed. Patient has no complaints at this time. OBJECTIVE: Vital Signs Period Temp Pulse Resp BP Sys/Shrestha Pulse Ox Last 24 Hr 97.4 F-98.3 F 66-96 18-20 113-128/71-90 94-100 GENERAL: The patient is awake, alert, and fully oriented, in no acute distress. HEAD: Normal with no signs of trauma. EYES: PERRL, extraocular movements intact LUNGS: Breath sounds equal, clear to auscultation bilaterally, no wheezes, no crackles, no accessory muscle use. Trach in place HEART: Regular rate and rhythm, S1, S2 without murmur, rub or gallop. ABDOMEN: Soft, nontender, nondistended, normoactive bowel sounds, gtube in place EXTREMITIES: 2+ pulses, warm, well-perfused, no edema. Laboratory Results - last 24 hr 05/14/18 06:10 Sodium 130 L Potassium 4.3 Chloride 92 L Carbon Dioxide 26 Anion Gap 12 BUN 15 Creatinine 0.4 L Creat Clearance w eGFR > 60 Random Glucose 112 H Calcium 7.4 L Active Medications Generic Name Dose Route Start Last Admin Trade Name Freq PRN Reason Stop Dose Admin Amino Acids 30 ml 04/21/18 17:30 05/14/18 08:42 Prosource No Carb Liquid Pkt PO 30 ml BID@0800,1730 [facility] Administration Bisacodyl 10 mg 04/25/18 20:30 05/13/18 21:36 Dulcolax Suppository - RC Not Given Q3D [facility] Docusate Sodium 100 mg 04/23/18 14:00 05/14/18 13:49 Colace Liquid - PO 100 mg TID [facility] Administration Enoxaparin Sodium 40 mg 05/08/18 12:45 05/14/18 09:53 Lovenox - SQ 40 mg DAILY [facility] Administration Fentanyl 1 patch 05/10/18 16:00 05/13/18 15:30 Duragesic 50mcg Patch - TD 05/17/18 15:59 1 patch Q72H [facility] Administration IV Flush 10 ml 04/23/18 16:59 05/08/18 14:18 Sheri-Cath Flush IVPUSH 10 ml PRN PRN Administration FLUSH Sodium Chloride 1,000 mls @ 75 mls/hr 05/13/18 09:15 05/14/18 13:48 Normal Saline - IV 75 mls/hr ASDIR [facility] Administration Lidocaine/Aluminum/Magnesium/Simeth 5 ml 04/29/18 18:00 05/14/18 11:44 Magic Mouthwash *Sjr Formula* - MM Not Given Q6HPO [facility] Miscellaneous 1 each 05/10/18 15:49 05/13/18 15:36 Duragesic Patch Waste TD 1 each PRN PRN Administration PAIN Multi-Ingredient Ointment 1 applic 05/10/18 22:00 05/14/18 11:39 Zinc Oxide TP 1 applic BID [facility] Administration Oxycodone HCl 5 mg 05/10/18 14:21 05/14/18 09:56 Roxicodone - PO 5 mg Q8H PRN Administration Pain 7-10 Pantoprazole Sodium 40 mg 04/29/18 10:00 05/14/18 09:53 Protonix Packets For Oral Suspension - NGT 40 mg DAILY [facility] Administration Polyethylene Glycol 17 gm 04/30/18 10:00 05/14/18 09:53 Miralax (For Daily Use) - PO 17 gm DAILY [facility] Administration Prednisone 20 mg 05/14/18 10:00 05/14/18 09:53 Deltasone - PO 20 mg DAILY [facility] Administration Senna 2 tab 04/27/18 22:00 05/11/18 22:28 Senna - PO 2 tab HS PRN Administration CONSTIPATION ASSESSMENT/PLAN: # Left hand mono neuropathy -Per Neuro bedside OT could be beneficial, consult physiatry, f/u EMG/NCS - MRI unobtainable, if competed and c-spine+for mets; will contact concology ( pt and requested Dr. Cooper) #Acute hypoxic respiratory dysfunction - Sepsis resolved -Weaned off ventilator; tolerating trach collar at 40% -Maintain SpO2 >90% -Continue aspiration precautions -Continue Fentanyl 50 mcg patch -Prednisone 20 mg qdaily; continue to taper #Severe Sepsis -Resolved; ID consulted #Abdominal Distension -likely 2/2 to ileus from pain medication -refused colace today -Senna 2 tabs HS -Dulcolax suppository q3day prn #Gtube leak -Resolved PPX: -DVT-Lovenox 40 mg qdaily Code status: DNS; confirmed with pt and with his at bedside Dispo: d/c planning; Pt accepted to 2 facilities, hopeful to be transferred tomorrow. Visit type - Emergency Visit Emergency Visit: No - New Patient This patient is new to me today: Yes Date on this admission: 05/14/18 - Critical Care Critical Care patient: No
--- NOTE | 2018-05-14 18:51 | PN ---
Teaching Attending Note Name of Resident: Geovanna Nayak ATTENDING PHYSICIAN STATEMENT I saw and evaluated the patient. I reviewed the resident's note and discussed the case with the resident. I agree with the resident's findings and plan as documented. SUBJECTIVE: No fever or chills OBJECTIVE: NAD, trach, awake MMM, no JVD. Lungs: decreased breath sounds at bases. Abd: slight distention . non tender. NL BS. GT in LUQ Ext: No edema or erythema. Neuro : EOMI, round equal pupils, nl facial droop., tongue at mid line. nl facial sensation. Strength : RUE: shoulder shrug 5/5 . biceps , triceps 5/5 , wrist flexion 5/5 , wrist extension 5/5 , hand set up and charger 5/5 LUE : shoulder shrug 5/5 . biceps , triceps 5/5 , wrist flexion 5/5 , wrist extension 0/5, finger flexion at MTP joint 4/5. extension at MTP 0/5. fingers abduction 0/5. fingers adduction nl. hand set up and charger . LE : 5/5 in hip flexion, knee flexion and extension , ankle dorsiflexion and plantar flexion . reflexes 2+ knee jerk and 1+ biceps b/l nl sensation to light touch . Nl nose to finger on both sides Assessment/Plan: Unfortunate 58 y/o gentleman with h/o laryngeal cancer s/p laryngectomy, chemo and radiation, DVT s/p IVC filter , who presented with SOB and AMS and was found to have acute hypoxic resp failure and sepsis . 1- Left hand drop/Radial nerve palsy: - could not tolerate C spine MRI - EMG/nerve conduciton . consult Dr. Camara - check B 12 2-hyponatremia :improved . cont NS for now 3-Acute hypoxic resp failure resolved . - cont prednisone taper . day 1 of 4- H/o PE: has IVC filter. not on AC at home due to hematuria on AC . 5- constipation : bowel regimen 6- Laryngeal cancer, s/p larygnectomy. cont treatment with out pt onc. cont fentanyl patch 7- Leakage around PEG: cont zinc oxide and anti-fungal 8- DNR . HLOC EMG then dc to rehab
[2018-05-15] MEDS: SODIUM CHLORIDE 1,000 ML IV SCH ×2 (01:36→10:41)
[2018-05-15] MEDS: MAG HYDROX/ALH/SMC/DPHA/LIDO 240 ML MOUTHWASH MM SCH ×3 (05:47→17:18)
[2018-05-15] MEDS: oxyCODONE HCL 5 MG TABLET PO PRN (06:25)
[2018-05-15] MEDS: DOCUSATE NA 100 MG/10 ML UNIT-DOSE CUPS PO SCH ×3 (06:25→21:39)
[2018-05-15 07:32] LABS: CHLORIDE 92 mmol/L (98-107); POTASSIUM 4.2 mmol/L (3.5-5.1); SODIUM 128 mmol/L (136-145)
[2018-05-15 07:39] LABS: ALBUMIN 2.2 g/dl (3.4-5.0); ANION GAP 9 (8-16); BILIRUBIN,TOTAL 0.3 mg/dL (0.2-1.0); BLOOD UREA NITROGEN 13 mg/dL (7-18); CALCIUM 7.6 mg/dL (8.5-10.1); CO2 27 mmol/L (21-32); CREATININE 0.3 mg/dL (0.7-1.3); GLUCOSE,RANDOM 112 mg/dL (74-106); SGOT/AST 74 U/L (15-37); SGPT/ALT 36 U/L (12-78); TOT PROT 5.6 g/dl (6.4-8.2)
[2018-05-15 07:40] LABS: ALK PHOS 198 U/L (45-117)
--- NOTE | 2018-05-15 08:09 | CONSULT ---
Consult - text type - Consultation Consultation Note: Physical Medicine and Rehabilitation Full Note Dictated Attempted to bring patient to PT dept for EMG/NCS but Patient refused. Discussed with nurse and this is consistent with his depressed state. Recommend left cock up wrist splint all times except hygeine and therapy. Discharge to rehab where he can get OT and consider EMG/NCS as an outpatient if persists after 6 weeks and patient agreeable. Thank you for this consultation. Lionel Camara MD
--- NOTE | 2018-05-15 09:48 | CONS ---
DATE OF CONSULTATION: 05/15/2018 REHABILITATION CONSULTATION HISTORY OF PRESENT ILLNESS: The patient is a 58-year-old man with past medical history of laryngeal cancer status post tracheostomy and G-tube who was originally admitted on April 16, 2018, with dyspnea, fever, and pneumonia. Patient has been treated but found to have left arm weakness. Patient underwent neurologic consultation with Dr. Salazar and was found to have weakness isolated in his left hand, finger, and wrist extensors, but good strength in his triceps. Patient had imaging study of his cervical spine apparently but was referred for physical medicine rehabilitation and possible electrodiagnostic studies. Patient is seen bedside and continues to have weakness in his left hand, diagnosed with radial nerve palsy. Patient did have some hyponatremia which has improved. His last chemistry showed a sodium of 130, potassium 4.3, BUN 15, creatinine 0.4, low calcium which corrects for low albumin. Last CBC on May 05 demonstrated normal WBC 5.3, hemoglobin 12.3, platelet count 371. REVIEW OF PAST MEDICAL HISTORY/PAST SURGICAL HISTORY: As above, laryngeal cancer, status post tracheostomy, status post G-tube with dysphagia, pulmonary embolism, status post acute hypoxic respiratory failure which resolved. SOCIAL HISTORY: Apparently lives with . Patient has been declining treatment including physical therapy to ambulate recently and had been living with his in a single level. However, there were 1-2 steps to enter premorbidly limited function. Minimal assist of 2 for transfers. REVIEW OF SYSTEMS: Mainly significant for left upper extremity weakness. He has no lightheadedness, dizziness, no blurry vision, double vision, no chest pain or shortness of breath, no weakness in the right wrist or hand. He has lost a lot of weight, has difficulty speaking, and cannot swallow. PHYSICAL EXAMINATION: General: Thin, cachectic man looking depressed in bed. He is awake and cooperative, in no acute distress. HEENT: He is normocephalic and atraumatic. His extraocular muscles appear full. He has difficulty speaking. Tracheostomy tube in the neck. Musculoskeletal: Generalized atrophy throughout the upper and lower extremities. He cannot lift his wrist against gravity or extend his fingers but good triceps strength and proximal strength. Diminished sensation and radial nerve distribution. Good strength in the right upper extremity and antigravity in the lower extremities. OVERALL IMPRESSION: 1. 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 2. Deficits in mobility, activities of daily living, multifactorial. 3. Status post hypoxic respiratory failure. 4. History of laryngeal cancer status post tracheostomy and gastrostomy tube. 5. Electrolyte abnormalities including hyponatremia. 6. Hypoalbuminemia. 7. History of pulmonary embolism. PLAN/SUGGESTION: 1. Patient is refusing to go for electrodiagnostic studies at this time. 2. Can follow up as an outpatient in 4-6 weeks for EMG nerve conduction studies for prognosis if wrist drop persists and he is agreeable. 3. Would suggest a left cockup splint to help him control the wrist and to prevent further stretching of ligaments. 4. Lovenox for DVT prophylaxis. 5. Prednisone taper. 6. Continue physical therapy at the bedside until discharge. 7. Bowel regimen. 8. Monitor skin for breakdown. 9. Patient apparently to be discharged to rehab facility for short-term versus long-term care. Thank you for this consultation. YARON RODRIGUEZ M.D. [id number] MTDD
[2018-05-15] MEDS ORDERED: PT OWN MED DRAWER 7, Y5N ONE ×2 (10:26→21:08)
[2018-05-15] MEDS: AMINO ACIDS/PROTEIN HYDROLYS 30 ML LIQUID.PKT PO SCH ×2 (10:40→17:34)
[2018-05-15] MEDS: predniSONE 20 MG TABLET (UD) PO SCH (10:41)
[2018-05-15] MEDS: ENOXAPARIN NA (PORCINE) 40 MG/0.4 ML DISP.SYRIN SQ SCH (10:41)
[2018-05-15] MEDS: ZINC OXIDE 20% TOPICAL OINTMENT 30 GM TUBE TP SCH ×2 (10:41→21:39)
[2018-05-15] MEDS: POLYETHYLENE GLYCOL 3350 119 GM BTL PO SCH (10:41)
[2018-05-15] MEDS: PANTOPRAZOLE SOD 40 MG SUSPENSION PACKET NGT SCH (10:41)
--- NOTE | 2018-05-15 11:37 | PN ---
Progress Note (short form) - Note Progress Note: PULMONARY Awake, more alert today. No fevers recorded. Saturating better on 40% FiO2. Vital Signs Period Temp Pulse Resp BP Sys/Shrestha Pulse Ox Last 24 Hr 97.8 F-98.2 F 77-96 18-20 113-122/72-85 93-96 Gen: mildly tachypneic on trach collar Heart: RRR Lung: bilateral rhonchi Abd: soft, nontender Ext: no edema CBC, BMP 05/05/18 06:16 05/15/18 06:10 Active Medications Amino Acids (Prosource No Carb Liquid Pkt) 30 ml PO BID@0800,1730 [facility] Last Admin: 05/15/18 10:40 Dose: 30 ml Bisacodyl (Dulcolax Suppository -) 10 mg RC Q3D [facility] Last Admin: 05/13/18 21:36 Dose: Not Given Docusate Sodium (Colace Liquid -) 100 mg PO TID [facility] Last Admin: 05/15/18 06:25 Dose: 100 mg Enoxaparin Sodium (Lovenox -) 40 mg SQ DAILY [facility] Last Admin: 05/15/18 10:41 Dose: 40 mg Fentanyl (Duragesic 50mcg Patch -) 1 patch TD Q72H [facility] Stop: 05/17/18 15:59 Last Admin: 05/13/18 15:30 Dose: 1 patch IV Flush (Sheri-Cath Flush) 10 ml IVPUSH PRN PRN PRN Reason: FLUSH Last Admin: 05/08/18 14:18 Dose: 10 ml Sodium Chloride (Normal Saline -) 1,000 mls @ 75 mls/hr IV ASDIR [facility] Last Admin: 05/15/18 10:41 Dose: Not Given Lidocaine/Aluminum/Magnesium/Simeth (Magic Mouthwash *Sjr Formula* -) 5 ml MM Q6HPO [facility] Last Admin: 05/15/18 05:47 Dose: Not Given Miscellaneous (Duragesic Patch Waste) 1 each TD PRN PRN PRN Reason: PAIN Last Admin: 05/13/18 15:36 Dose: 1 each Multi-Ingredient Ointment (Zinc Oxide) 1 applic TP BID [facility] Last Admin: 05/15/18 10:41 Dose: 1 applic Oxycodone HCl (Roxicodone -) 5 mg PO Q8H PRN PRN Reason: Pain 7-10 Last Admin: 05/15/18 06:25 Dose: 5 mg Pantoprazole Sodium (Protonix Packets For Oral Suspension -) 40 mg NGT DAILY [facility] Last Admin: 05/15/18 10:41 Dose: 40 mg Polyethylene Glycol (Miralax (For Daily Use) -) 17 gm PO DAILY [facility] Last Admin: 05/15/18 10:41 Dose: 17 gm Prednisone (Deltasone -) 20 mg PO DAILY [facility] Last Admin: 05/15/18 10:41 Dose: 20 mg Senna (Senna -) 2 tab PO HS PRN PRN Reason: CONSTIPATION Last Admin: 05/11/18 22:28 Dose: 2 tab A/P Acute on Chronic Respiratory failure Pneumonia Pleural Effusion LV Diastolic Dysfunction Laryngeal CA - completed antibiotics - enteral feeds - trach collar as tolerated - taper FiO2 to keep SpO2 >90% - prednisone taper - inhaled bronchodilators - DVT prophylaxis
--- NOTE | 2018-05-15 14:50 | PN ---
Teaching Attending Note Name of Resident: Shay Pereira ATTENDING PHYSICIAN STATEMENT I saw and evaluated the patient. I reviewed the resident's note and discussed the case with the resident. I agree with the resident's findings and plan as documented. SUBJECTIVE: pain in the whole body, . NO SOB PE : NAD, trach, awake MMM, no JVD. Lungs: decreased breath sounds at bases. Abd: slight distention . non tender. NL BS. GT in LUQ with slight leakage Ext: No edema or erythema. Neuro: LUE : wrist extension 0/5, finger flexion at MTP joint 4/5. extension at MTP 0/ 5. fingers abduction 0/5. fingers adduction nl. hand bun panner . LE : 5/5 in hip flexion, knee flexion and extension , ankle dorsiflexion and plantar flexion . Assessment/Plan: Unfortunate 58 y/o gentleman with h/o laryngeal cancer s/p laryngectomy, chemo and radiation, DVT s/p IVC filter , who presented with SOB and AMS and was found to have acute hypoxic resp failure and sepsis . 1- Left hand drop/Radial nerve palsy: - could not tolerate C spine MRI and refused EMG - b12 elevated - OT as out pt 2-hyponatremia :monitor 3-Acute hypoxic resp failure resolved . - cont prednisone taper .will do 10 mg daily starting tomorrow x 3 days then stop 4- H/o PE: has IVC filter. not on AC at home due to hematuria on AC . 5- constipation : bowel regimen 6- Laryngeal cancer, s/p larygnectomy. cont treatment with out pt onc. cont fentanyl patch 7- Leakage around PEG: cont zinc oxide and anti-fungal 8- DNR . DC pending bed availability .
--- NOTE | 2018-05-15 15:38 | PN ---
Progress Note, Physician History of Present Illness: no new issues stable overnight - Current Medication List Current Medications: Active Medications Amino Acids (Prosource No Carb Liquid Pkt) 30 ml PO BID@0800,1730 [facility] Last Admin: 05/15/18 10:40 Dose: 30 ml Bisacodyl (Dulcolax Suppository -) 10 mg RC Q3D [facility] Last Admin: 05/13/18 21:36 Dose: Not Given Docusate Sodium (Colace Liquid -) 100 mg PO TID [facility] Last Admin: 05/15/18 06:25 Dose: 100 mg Enoxaparin Sodium (Lovenox -) 40 mg SQ DAILY [facility] Last Admin: 05/15/18 10:41 Dose: 40 mg Fentanyl (Duragesic 50mcg Patch -) 1 patch TD Q72H [facility] Stop: 05/17/18 15:59 Last Admin: 05/13/18 15:30 Dose: 1 patch IV Flush (Sheri-Cath Flush) 10 ml IVPUSH PRN PRN PRN Reason: FLUSH Last Admin: 05/08/18 14:18 Dose: 10 ml Sodium Chloride (Normal Saline -) 1,000 mls @ 75 mls/hr IV ASDIR [facility] Last Admin: 05/15/18 10:41 Dose: Not Given Lidocaine/Aluminum/Magnesium/Simeth (Magic Mouthwash *Sjr Formula* -) 5 ml MM Q6HPO [facility] Last Admin: 05/15/18 12:18 Dose: Not Given Miscellaneous (Duragesic Patch Waste) 1 each TD PRN PRN PRN Reason: PAIN Last Admin: 05/13/18 15:36 Dose: 1 each Multi-Ingredient Ointment (Zinc Oxide) 1 applic TP BID [facility] Last Admin: 05/15/18 10:41 Dose: 1 applic Oxycodone HCl (Roxicodone -) 5 mg PO Q8H PRN PRN Reason: Pain 7-10 Last Admin: 05/15/18 06:25 Dose: 5 mg Pantoprazole Sodium (Protonix Packets For Oral Suspension -) 40 mg NGT DAILY [facility] Last Admin: 05/15/18 10:41 Dose: 40 mg Polyethylene Glycol (Miralax (For Daily Use) -) 17 gm PO DAILY [facility] Last Admin: 05/15/18 10:41 Dose: 17 gm Prednisone (Deltasone -) 20 mg PO DAILY [facility] Last Admin: 05/15/18 10:41 Dose: 20 mg Senna (Senna -) 2 tab PO HS PRN PRN Reason: CONSTIPATION Last Admin: 05/11/18 22:28 Dose: 2 tab - Objective Vital Signs: Vital Signs Temperature 97.8 F 05/15/18 13:45 Pulse Rate 87 05/15/18 13:45 Respiratory Rate 21 05/15/18 13:45 Blood Pressure 123/89 05/15/18 13:45 O2 Sat by Pulse Oximetry (%) 93 L 05/15/18 08:38 Constitutional: Yes: No Distress, Calm Neck: Yes: Supple Cardiovascular: Yes: Regular Rate and Rhythm Respiratory: Yes: Regular, Other (trach collar) Gastrointestinal: Yes: Normal Bowel Sounds, Soft Musculoskeletal: Yes: WNL Extremities: Yes: WNL Labs: CBC, BMP 05/05/18 06:16 05/15/18 06:10 INR, PTT INR 1.32 (0.82-1.09) H 04/18/18 06:00 Assessment/Plan Problem List - Problems (1) Sepsis Code(s): A41.9 - SEPSIS, UNSPECIFIED ORGANISM Qualifiers: Sepsis type: sepsis due to unspecified organism Qualified Code(s): A41.9 - Sepsis, unspecified organism (2) Pneumonia Code(s): J18.9 - PNEUMONIA, UNSPECIFIED ORGANISM Qualifiers: Pneumonia type: due to unspecified organism Laterality: unspecified laterality Lung location: unspecified part of lung Qualified Code(s): J18.9 - Pneumonia, unspecified organism resp failure hypoxia Problem List - Problems (1) Sepsis Code(s): A41.9 - SEPSIS, UNSPECIFIED ORGANISM (2) Neutropenia Code(s): D70.9 - NEUTROPENIA, UNSPECIFIED (3) Pneumonia Code(s): J18.9 - PNEUMONIA, UNSPECIFIED ORGANISM Qualifiers: Pneumonia type: due to unspecified organism Laterality: unspecified laterality Lung location: unspecified part of lung Qualified Code(s): J18.9 - Pneumonia, unspecified organism (4) Sepsis Code(s): A41.9 - SEPSIS, UNSPECIFIED ORGANISM Qualifiers: Sepsis type: sepsis due to unspecified organism Qualified Code(s): A41.9 - Sepsis, unspecified organism (5) Respiratory failure Code(s): J96.90 - RESPIRATORY FAILURE, UNSP, UNSP W HYPOXIA OR HYPERCAPNIA (7) Acute hypoxemic respiratory failure Code(s): J96.01 - ACUTE RESPIRATORY FAILURE WITH HYPOXIA Assessment/Plan 58 y.o. male with PMH of laryngeal CA with metastasis to bone reportedly s/p chemotherapy 2 wks ago presenting with fever/rigors, AMS, respiratory distress Severe Sepsis Acute Respiratory failure s/p tracheostomy/ on MV PNA Pleural Effusion Metastatic laryngeal CA Elevated lactic acid, Fever, leukopenia Hx of DVT s/p IVC filter continue current management resp support awaiting final plan
--- NOTE | 2018-05-15 17:59 | PN ---
Physical Exam: SUBJECTIVE: Patient is a 58 year old male with laryngeal cancer s/p trach, g tube, DVT s/p IVC filter who was admited with acute hypoxic respiratory failure and sepsis. He has also developed a left radial mononeuropathy. Patient had no acute events overnight. Nurse reports patient is still depressed. Patient complains of general pain. OBJECTIVE: Vital Signs Period Temp Pulse Resp BP Sys/Shrestha Pulse Ox Last 24 Hr 97.8 F-98 F 77-96 20-21 113-123/72-89 93-96 GENERAL: The patient is awake, alert with a flat affect HEAD: Normal with no signs of trauma. EYES: PERRL, extraocular movements intact LUNGS: Breath sounds equal, clear to auscultation bilaterally. Trach in place HEART: Regular rate and rhythm. ABDOMEN: Soft, nontender, nondistended gtube in place Laboratory Results - last 24 hr 05/15/18 05/15/18 06:10 06:10 Sodium 128 L Potassium 4.2 Chloride 92 L Carbon Dioxide 27 Anion Gap 9 BUN 13 Creatinine 0.3 L Creat Clearance w eGFR > 60 Random Glucose 112 H Calcium 7.6 L Total Bilirubin 0.3 AST 74 H D ALT 36 Alkaline Phosphatase 198 H D Total Protein 5.6 L Albumin 2.2 L Vitamin B12 1375 H Active Medications Generic Name Dose Route Start Last Admin Trade Name Freq PRN Reason Stop Dose Admin Amino Acids 30 ml 04/21/18 17:30 05/15/18 17:34 Prosource No Carb Liquid Pkt PO 30 ml BID@0800,1730 [facility] Administration Bisacodyl 10 mg 04/25/18 20:30 05/13/18 21:36 Dulcolax Suppository - RC Not Given Q3D [facility] Docusate Sodium 100 mg 04/23/18 14:00 05/15/18 17:18 Colace Liquid - PO Not Given TID [facility] Enoxaparin Sodium 40 mg 05/08/18 12:45 05/15/18 10:41 Lovenox - SQ 40 mg DAILY [facility] Administration Fentanyl 1 patch 05/10/18 16:00 05/13/18 15:30 Duragesic 50mcg Patch - TD 05/17/18 15:59 1 patch Q72H [facility] Administration IV Flush 10 ml 04/23/18 16:59 06/25/18 14:18 Sheri-Cath Flush IVPUSH 10 ml PRN PRN Administration FLUSH Sodium Chloride 1,000 mls @ 75 mls/hr 05/13/18 09:15 05/15/18 10:41 Normal Saline - IV Not Given ASDIR [facility] Lidocaine/Aluminum/Magnesium/Simeth 5 ml 04/29/18 18:00 05/15/18 17:18 Magic Mouthwash *Sjr Formula* - MM Not Given Q6HPO [facility] Miscellaneous 1 each 05/10/18 15:49 05/13/18 15:36 Duragesic Patch Waste TD 1 each PRN PRN Administration PAIN Multi-Ingredient Ointment 1 applic 05/10/18 22:00 05/15/18 10:41 Zinc Oxide TP 1 applic BID [facility] Administration Oxycodone HCl 5 mg 05/10/18 14:21 05/15/18 06:25 Roxicodone - PO 5 mg Q8H PRN Administration Pain 7-10 Pantoprazole Sodium 40 mg 04/29/18 10:00 05/15/18 10:41 Protonix Packets For Oral Suspension - NGT 40 mg DAILY [facility] Administration Polyethylene Glycol 17 gm 04/30/18 10:00 05/15/18 10:41 Miralax (For Daily Use) - PO 17 gm DAILY [facility] Administration Prednisone 20 mg 05/14/18 10:00 05/15/18 10:41 Deltasone - PO 20 mg DAILY [facility] Administration Senna 2 tab 04/27/18 22:00 05/11/18 22:28 Senna - PO 2 tab HS PRN Administration CONSTIPATION ASSESSMENT/PLAN: # Left hand mono neuropathy -Per Neuro bedside OT could be beneficial, consult physiatry, - EMG/NCS refused - MRI refused, if competed and c-spine+for mets; will contact concology ( pt and requested Dr. Cooper) -Vitamin B 12 found to be elevated #Hyponatremia -Most recent Na:128, baseline ~130 -continue to monitor -continue fluids #Acute hypoxic respiratory dysfunction - Sepsis resolved -Weaned off ventilator; tolerating trach collar at 40% -Maintain SpO2 >90% -Continue aspiration precautions -Continue Fentanyl 50 mcg patch -Prednisone 20 mg qdaily; continue to taper #Severe Sepsis -Resolved; ID consulted #Abdominal Distension -likely 2/2 to ileus from pain medication -refused colace today -Senna 2 tabs HS -Dulcolax suppository q3day prn #Gtube leak -Resolved PPX: -DVT-Lovenox 40 mg qdaily Code status: DNR; confirmed with pt and with his at bedside Dispo: d/c planning; Should be tomorrow, Taper prednisone with three doses of 10 mg starting 05/16 Visit type - Emergency Visit Emergency Visit: No - New Patient This patient is new to me today: No - Critical Care Critical Care patient: No
[2018-05-16] MEDS: MAG HYDROX/ALH/SMC/DPHA/LIDO 240 ML MOUTHWASH MM SCH ×4 (00:35→17:16)
[2018-05-16] MEDS: SODIUM CHLORIDE 1,000 ML IV SCH ×2 (04:17→09:31)
[2018-05-16] MEDS: DOCUSATE NA 100 MG/10 ML UNIT-DOSE CUPS PO SCH ×3 (06:16→21:37)
[2018-05-16 07:42] LABS: ANION GAP 9 (8-16); BLOOD UREA NITROGEN 13 mg/dL (7-18); CALCIUM 7.6 mg/dL (8.5-10.1); CHLORIDE 91 mmol/L (98-107); CO2 29 mmol/L (21-32); CREATININE 0.4 mg/dL (0.7-1.3); GLUCOSE,RANDOM 105 mg/dL (74-106); SODIUM 129 mmol/L (136-145)
[2018-05-16] MEDS: AMINO ACIDS/PROTEIN HYDROLYS 30 ML LIQUID.PKT PO SCH ×2 (08:59→17:07)
[2018-05-16] MEDS ORDERED: PT OWN MED DRAWER 7, Y5N ONE (09:12)
[2018-05-16] MEDS: ENOXAPARIN NA (PORCINE) 40 MG/0.4 ML DISP.SYRIN SQ SCH (09:23)
[2018-05-16] MEDS: PANTOPRAZOLE SOD 40 MG SUSPENSION PACKET NGT SCH (09:24)
[2018-05-16] MEDS: predniSONE 10 MG TABLET (UD) PO SCH (09:24)
[2018-05-16] MEDS: POLYETHYLENE GLYCOL 3350 119 GM BTL PO SCH (09:25)
[2018-05-16] MEDS: ZINC OXIDE 20% TOPICAL OINTMENT 30 GM TUBE TP SCH ×2 (09:32→21:38)
--- NOTE | 2018-05-16 10:37 | PN ---
Progress Note (short form) - Note Progress Note: PULMONARY No fevers recorded. Saturating well on 40% FiO2. Vital Signs Period Temp Pulse Resp BP Sys/Shrestha Pulse Ox Last 24 Hr 97.4 F-97.8 F 87-98 14-21 115-133/74-91 98 Gen: mildly tachypneic on trach collar Heart: RRR Lung: bilateral rhonchi Abd: soft, nontender Ext: no edema CBC, BMP 05/05/18 06:16 05/16/18 06:30 Active Medications Amino Acids (Prosource No Carb Liquid Pkt) 30 ml PO BID@0800,1730 [facility] Last Admin: 05/16/18 08:59 Dose: 30 ml Bisacodyl (Dulcolax Suppository -) 10 mg RC Q3D [facility] Last Admin: 05/13/18 21:36 Dose: Not Given Docusate Sodium (Colace Liquid -) 100 mg PO TID [facility] Last Admin: 05/16/18 06:16 Dose: Not Given Enoxaparin Sodium (Lovenox -) 40 mg SQ DAILY [facility] Last Admin: 05/16/18 09:23 Dose: 40 mg Fentanyl (Duragesic 50mcg Patch -) 1 patch TD Q72H [facility] Stop: 05/17/18 15:59 Last Admin: 05/13/18 15:30 Dose: 1 patch IV Flush (Sheri-Cath Flush) 10 ml IVPUSH PRN PRN PRN Reason: FLUSH Last Admin: 05/08/18 14:18 Dose: 10 ml Sodium Chloride (Normal Saline -) 1,000 mls @ 75 mls/hr IV ASDIR [facility] Last Admin: 05/16/18 09:31 Dose: Not Given Lidocaine/Aluminum/Magnesium/Simeth (Magic Mouthwash *Sjr Formula* -) 5 ml MM Q6HPO [facility] Last Admin: 05/16/18 05:02 Dose: Not Given Miscellaneous (Duragesic Patch Waste) 1 each TD PRN PRN PRN Reason: PAIN Last Admin: 05/13/18 15:36 Dose: 1 each Multi-Ingredient Ointment (Zinc Oxide) 1 applic TP BID [facility] Last Admin: 05/16/18 09:32 Dose: 1 applic Oxycodone HCl (Roxicodone -) 5 mg PO Q8H PRN PRN Reason: Pain 7-10 Last Admin: 05/15/18 06:25 Dose: 5 mg Pantoprazole Sodium (Protonix Packets For Oral Suspension -) 40 mg NGT DAILY [facility] Last Admin: 05/16/18 09:24 Dose: 40 mg Polyethylene Glycol (Miralax (For Daily Use) -) 17 gm PO DAILY [facility] Last Admin: 05/16/18 09:25 Dose: Not Given Prednisone (Deltasone -) 10 mg PO DAILY [facility] Stop: 05/18/18 10:01 Last Admin: 05/16/18 09:24 Dose: 10 mg Senna (Senna -) 2 tab PO HS PRN PRN Reason: CONSTIPATION Last Admin: 05/11/18 22:28 Dose: 2 tab A/P Acute on Chronic Respiratory failure Pneumonia Pleural Effusion LV Diastolic Dysfunction Laryngeal CA - completed antibiotics - enteral feeds - trach collar as tolerated - taper FiO2 to keep SpO2 >90% - prednisone taper - inhaled bronchodilators - DVT prophylaxis - d/c planning in progress
--- NOTE | 2018-05-16 14:41 | PN ---
Progress Note, Physician History of Present Illness: stable on trach collar 40 percent fio2 depression - Current Medication List Current Medications: Active Medications Amino Acids (Prosource No Carb Liquid Pkt) 30 ml PO BID@0800,1730 [facility] Last Admin: 05/16/18 08:59 Dose: 30 ml Bisacodyl (Dulcolax Suppository -) [address] [facility] Last Admin: 05/13/18 21:36 Dose: Not Given Docusate Sodium (Colace Liquid -) [address] [facility] Last Admin: 05/16/18 06:16 Dose: Not Given Enoxaparin Sodium (Lovenox -) [address] [facility] Last Admin: 05/16/18 09:23 Dose: 40 mg Fentanyl (Duragesic 50mcg Patch -) [address] [facility] Stop: 05/17/18 15:59 Last Admin: 05/13/18 15:30 Dose: 1 patch IV Flush (Sheri-Cath Flush) 10 ml IVPUSH PRN PRN PRN Reason: FLUSH Last Admin: 05/08/18 14:18 Dose: 10 ml Sodium Chloride (Normal Saline -) 1,000 mls @ 75 mls/hr IV ASDIR [facility] Last Admin: 05/16/18 09:31 Dose: Not Given Lidocaine/Aluminum/Magnesium/Simeth (Magic Mouthwash *Sjr Formula* -) [address] [facility] Last Admin: 05/16/18 12:11 Dose: Not Given Miscellaneous (Duragesic Patch Waste) 1 each TD PRN PRN PRN Reason: PAIN Last Admin: 05/13/18 15:36 Dose: 1 each Multi-Ingredient Ointment (Zinc Oxide) [address] [facility] Last Admin: 05/16/18 09:32 Dose: 1 applic Oxycodone HCl (Roxicodone -) 5 mg PO Q8H PRN PRN Reason: Pain 7-10 Last Admin: 05/15/18 06:25 Dose: 5 mg Pantoprazole Sodium (Protonix Packets For Oral Suspension -) [address] [facility] Last Admin: 05/16/18 09:24 Dose: 40 mg Polyethylene Glycol (Miralax (For Daily Use) -) [address] [facility] Last Admin: 05/16/18 09:25 Dose: Not Given Prednisone (Deltasone -) 10 mg PO DAILY [facility] Stop: 05/18/18 10:01 Last Admin: 05/16/18 09:24 Dose: 10 mg Senna (Senna -) 2 tab PO HS PRN PRN Reason: CONSTIPATION Last Admin: 05/11/18 22:28 Dose: 2 tab - Objective Vital Signs: Vital Signs Temperature 97.6 F 05/16/18 13:29 Pulse Rate 96 H 05/16/18 13:29 Respiratory Rate 20 05/16/18 13:29 Blood Pressure 104/74 05/16/18 13:29 O2 Sat by Pulse Oximetry (%) 98 05/15/18 23:04 Constitutional: Yes: No Distress, Calm Neck: Yes: Other Cardiovascular: Yes: Regular Rate and Rhythm Respiratory: Yes: Other (on trach collar) Gastrointestinal: Yes: Normal Bowel Sounds, Soft, Other (peg) Labs: CBC, BMP 05/05/18 06:16 05/16/18 06:30 INR, PTT INR 1.32 (0.82-1.09) H 04/18/18 06:00 Assessment/Plan Problem List - Problems (1) Sepsis Code(s): A41.9 - SEPSIS, UNSPECIFIED ORGANISM Qualifiers: Sepsis type: sepsis due to unspecified organism Qualified Code(s): A41.9 - Sepsis, unspecified organism (2) Pneumonia Code(s): J18.9 - PNEUMONIA, UNSPECIFIED ORGANISM Qualifiers: Pneumonia type: due to unspecified organism Laterality: unspecified laterality Lung location: unspecified part of lung Qualified Code(s): J18.9 - Pneumonia, unspecified organism resp failure hypoxia Problem List - Problems (1) Sepsis Code(s): A41.9 - SEPSIS, UNSPECIFIED ORGANISM (2) Neutropenia Code(s): D70.9 - NEUTROPENIA, UNSPECIFIED (3) Pneumonia Code(s): J18.9 - PNEUMONIA, UNSPECIFIED ORGANISM Qualifiers: Pneumonia type: due to unspecified organism Laterality: unspecified laterality Lung location: unspecified part of lung Qualified Code(s): J18.9 - Pneumonia, unspecified organism (4) Sepsis Code(s): A41.9 - SEPSIS, UNSPECIFIED ORGANISM Qualifiers: Sepsis type: sepsis due to unspecified organism Qualified Code(s): A41.9 - Sepsis, unspecified organism (5) Respiratory failure Code(s): J96.90 - RESPIRATORY FAILURE, UNSP, UNSP W HYPOXIA OR HYPERCAPNIA (7) Acute hypoxemic respiratory failure Code(s): J96.01 - ACUTE RESPIRATORY FAILURE WITH HYPOXIA Assessment/Plan 58 y.o. 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
--- NOTE | 2018-05-16 16:02 | PN ---
Physical Exam: SUBJECTIVE: Patient is a 58 year old male with laryngeal cancer s/p trach, g tube, DVT s/p IVC filter who was admitted with acute hypoxic respiratory failure and sepsis. He has also developed a left radial mononeuropathy. Patient had no acute events overnight. Patient complains of general pain. Patient is still depressed OBJECTIVE: Vital Signs Period Temp Pulse Resp BP Sys/Shrestha Pulse Ox Last 24 Hr 97.4 F-97.8 F 92-98 14-20 104-133/74-91 98 GENERAL: The patient is awake, alert with a flat affect HEAD: Normal with no signs of trauma. EYES: PERRL, extraocular movements intact LUNGS: Breath sounds equal, clear to auscultation bilaterally. Trach in place HEART: Regular rate and rhythm. ABDOMEN: Soft, nontender, nondistended gtube in place Laboratory Results - last 24 hr 05/16/18 06:30 Sodium 129 L Potassium 4.0 Chloride 91 L Carbon Dioxide 29 Anion Gap 9 BUN 13 Creatinine 0.4 L Creat Clearance w eGFR > 60 Random Glucose 105 Calcium 7.6 L Active Medications Generic Name Dose Route Start Last Admin Trade Name Freq PRN Reason Stop Dose Admin Amino Acids 30 ml 04/21/18 17:30 05/16/18 08:59 Prosource No Carb Liquid Pkt PO 30 ml BID@0800,1730 [facility] Administration Bisacodyl 10 mg 04/25/18 20:30 05/13/18 21:36 Dulcolax Suppository - RC Not Given Q3D [facility] Docusate Sodium 100 mg 04/23/18 14:00 05/16/18 15:20 Colace Liquid - PO Not Given TID [facility] Enoxaparin Sodium 40 mg 05/08/18 12:45 05/16/18 09:23 Lovenox - SQ 40 mg DAILY [facility] Administration Fentanyl 1 patch 05/10/18 16:00 05/13/18 15:30 Duragesic 50mcg Patch - TD 05/17/18 15:59 1 patch Q72H [facility] Administration IV Flush 10 ml 04/23/18 16:59 05/08/18 14:18 Sheri-Cath Flush IVPUSH 10 ml PRN PRN Administration FLUSH Sodium Chloride 1,000 mls @ 75 mls/hr 05/13/18 09:15 05/16/18 09:31 Normal Saline - IV Not Given ASDIR [facility] Lidocaine/Aluminum/Magnesium/Simeth 5 ml 04/29/18 18:00 05/16/18 12:11 Magic Mouthwash *Sjr Formula* - MM Not Given Q6HPO [facility] Miscellaneous 1 each 05/10/18 15:49 05/13/18 15:36 Duragesic Patch Waste TD 1 each PRN PRN Administration PAIN Multi-Ingredient Ointment 1 applic 05/10/18 22:00 05/16/18 09:32 Zinc Oxide TP 1 applic BID [facility] Administration Oxycodone HCl 5 mg 05/10/18 14:21 05/15/18 06:25 Roxicodone - PO 5 mg Q8H PRN Administration Pain 7-10 Pantoprazole Sodium 40 mg 04/29/18 10:00 05/16/18 09:24 Protonix Packets For Oral Suspension - NGT 40 mg DAILY [facility] Administration Polyethylene Glycol 17 gm 04/30/18 10:00 05/16/18 09:25 Miralax (For Daily Use) - PO Not Given DAILY [facility] Prednisone 10 mg 05/16/18 10:00 05/16/18 09:24 Deltasone - PO 05/18/18 10:01 10 mg DAILY [facility] Administration Senna 2 tab 04/27/18 22:00 05/11/18 22:28 Senna - PO 2 tab HS PRN Administration CONSTIPATION ASSESSMENT/PLAN: Patient is a 58 year old male with laryngeal cancer s/p trach, g tube, DVT s/p IVC filter who was admitted with acute hypoxic respiratory failure and sepsis. Patient pending social work for discharge. # Left hand mono neuropathy -Per Neuro bedside OT could be beneficial, consult physiatry, - EMG/NCS refused - MRI refused, if competed and c-spine+for mets; will contact concology ( pt and requested Dr. Cooper) -Vitamin B 12 found to be elevated #Hyponatremia -Most recent Na:128, baseline ~130 -continue to monitor -continue fluids #Acute hypoxic respiratory dysfunction - Sepsis resolved -Weaned off ventilator; tolerating trach collar at 40% -Maintain SpO2 >90% -Continue aspiration precautions -Continue Fentanyl 50 mcg patch -Prednisone 20 mg qdaily; continue to taper #Severe Sepsis -Resolved; ID consulted #Abdominal Distension -likely 2/2 to ileus from pain medication -refused colace today -Senna 2 tabs HS -Dulcolax suppository q3day prn #Gtube leak -Resolved PPX: -DVT-Lovenox 40 mg qdaily Code status: DNR; confirmed with pt and with his at bedside Dispo: d/c planning; Should be tomorrow, Taper prednisone with three doses of 10 mg ending 05/18 Visit type - Emergency Visit Emergency Visit: No - New Patient This patient is new to me today: No - Critical Care Critical Care patient: No
[2018-05-16] MEDS: fentaNYL 50mcg/hr PATCH.TD72 TD SCH (16:03)
[2018-05-16] MEDS: FENTANYL PATCH WASTE TD PRN (16:09)
--- NOTE | 2018-05-16 17:47 | PN ---
Teaching Attending Note Name of Resident: Geovanna Nayak ATTENDING PHYSICIAN STATEMENT I saw and evaluated the patient. I reviewed the resident's note and discussed the case with the resident. I agree with the resident's findings and plan as documented. SUBJECTIVE: no fever or chills. No events OBJECTIVE: NAD, trach, awake . flat affect MMM, no JVD. Lungs: decreased breath sounds at bases. Abd: slight distention . non tender. NL BS. GT in LUQ with slight leakage Ext: No edema or erythema. Neuro: LUE : wrist extension 0/5, finger flexion at MTP joint 4/5. extension at MTP 0/ 5. fingers abduction 0/5. fingers adduction nl. 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 Assessment/Plan: Unfortunate 58 y/o gentleman with h/o laryngeal cancer s/p laryngectomy, chemo and radiation, DVT s/p IVC filter , who presented with SOB and AMS and was found to have acute hypoxic resp failure and sepsis . 1- Left hand drop/Radial nerve palsy: - could not tolerate C spine MRI and refused EMG - OT as out pt 2-hyponatremia :monitor 3-Acute hypoxic resp failure resolved . - 10 mg daily for 2 more days only 4- H/o PE: has IVC filter. not on AC at home due to hematuria on AC . 5- constipation : bowel regimen 6- Laryngeal cancer, s/p larygnectomy. cont treatment with out pt onc. cont fentanyl patch 7- Leakage around PEG: cont zinc oxide and anti-fungal 8- DNR . accepted at [facility] , for dc tomorrow AM ASSESSMENT AND PLAN:
[2018-05-16] MEDS: BISACODYL 10 MG SUPP.RECT RC SCH (21:37)
[2018-05-17] MEDS: MAG HYDROX/ALH/SMC/DPHA/LIDO 240 ML MOUTHWASH MM SCH ×5 (00:06→23:34)
[2018-05-17] MEDS: SODIUM CHLORIDE 1,000 ML IV SCH ×4 (06:04→23:39)
[2018-05-17 07:18] LABS: ANION GAP 10 (8-16); BLOOD UREA NITROGEN 13 mg/dL (7-18); CALCIUM 7.6 mg/dL (8.5-10.1); CHLORIDE 93 mmol/L (98-107); CO2 26 mmol/L (21-32); CREATININE 0.3 mg/dL (0.7-1.3); GLUCOSE,RANDOM 102 mg/dL (74-106); POTASSIUM 4.2 mmol/L (3.5-5.1); SODIUM 129 mmol/L (136-145)
[2018-05-17] MEDS: DOCUSATE NA 100 MG/10 ML UNIT-DOSE CUPS PO SCH ×3 (07:41→22:47)
[2018-05-17] MEDS: AMINO ACIDS/PROTEIN HYDROLYS 30 ML LIQUID.PKT PO SCH ×2 (08:55→18:09)
[2018-05-17] MEDS ORDERED: PT OWN MED DRAWER 7, Y5N ONE (08:56)
[2018-05-17] MEDS: ZINC OXIDE 20% TOPICAL OINTMENT 30 GM TUBE TP SCH ×2 (09:05→22:48)
[2018-05-17] MEDS: PANTOPRAZOLE SOD 40 MG SUSPENSION PACKET NGT SCH (09:05)
[2018-05-17] MEDS: ENOXAPARIN NA (PORCINE) 40 MG/0.4 ML DISP.SYRIN SQ SCH (09:08)
[2018-05-17] MEDS: predniSONE 10 MG TABLET (UD) PO SCH (09:08)
--- NOTE | 2018-05-17 09:10 | DS ---
Physical Exam: SUBJECTIVE: Patient seen and examined OBJECTIVE: Vital Signs Period Temp Pulse Resp BP Sys/Shrestha Pulse Ox Last 24 Hr 97.4 F-98.3 F 90-99 19-20 104-126/74-85 93-97 PHYSICAL EXAM GENERAL: The patient is awake, alert, and fully oriented, in no acute distress. HEAD: Normal with no signs of trauma. EYES: PERRL, extraocular movements intact, sclera anicteric, conjunctiva clear. ENT: Ears normal, nares patent, oropharynx clear without exudates, moist mucous membranes. NECK: Trachea midline, full range of motion, supple. LUNGS: Breath sounds equal, clear to auscultation bilaterally, no wheezes, no crackles, no accessory muscle use. HEART: Regular rate and rhythm, S1, S2 without murmur, rub or gallop. ABDOMEN: Soft, nontender, nondistended, normoactive bowel sounds, no guarding, no rebound, no hepatosplenomegaly, no masses. EXTREMITIES: 2+ pulses, warm, well-perfused, no edema. NEUROLOGICAL: Cranial nerves II through XII grossly intact. Normal speech, gait not observed. PSYCH: Normal mood, normal affect. SKIN: Warm, dry, normal turgor, no rashes or lesions noted. LABS Laboratory Results - last 24 hr 05/17/18 06:15 Sodium 129 L Potassium 4.2 Chloride 93 L Carbon Dioxide 26 Anion Gap 10 BUN 13 Creatinine 0.3 L Creat Clearance w eGFR > 60 Random Glucose 102 Calcium 7.6 L HOSPITAL COURSE: Date of Admission:04/16/18 Date of Discharge: 05/17/18 Pt was admitted on 04/16/18 due to becoming altered, rigors, and noted to have multiple secretions from his tracheostomy site. Pt was found to have severe sepsis 2/2 to aspiration PNA and was first maintained on Vancomycin 1gm and Zosyn 4.5q8h IV alongside of IVF. At no time did the pt become hypotensive despite IVF therapy. Pts tracheostomy site was changed to a Bovana XLT 7.0 trach site due to pts enlarged stoma. Pt was initially ventilated with mechanical support on AC mode and was found to have large pleural effusion and chest tube was placed in ICU. He drained an appropriate amount of fluid with good respiratory response allowing us to wean him further from AC mode of ventilation. Pleural fluid studies and cytology were sent which revealed no malignant cells and a transudative effusion. Pt was eventually weaned off of mechanical ventilation and was placed on trach collar with blow-by oxygen on 10/01. At this time pt had also completed his 5 days worth of antibiotic therapy for his aspiration pneumonia and had fevers subsided. Due to pts laryngeal carcinoma, pt required higher pain medications to control his chronic pain. Unfortunately, pt developed a tense abdomen at this time and was noted to have some G-tube leak with his tube feeds. AXR was ordered which revealed a possible ileus. Pt had tube feeds held and a bowel regiment was put into place which allowed relief of his ileus. GI was consulted who repositioned the PEG tube and leak was minimized at this time. Decision to NOT replace GT was made because it was deemed that pts leak would worsen if done. In addition, pt was noted to develop depression throughout his hospital course. Pt was started on Lexapro 10mg qDaily and psych was placed on case, however pt s depression did not alleviate and he developed notable hyponatremia as a result. Lexapro 10mg qdaily was tapered down and discontinued at this point. Pt continued to be care for as we awaited placement into a retirement facility or acute care center. Pt required a higher level of care and in the interim weaning of his oxygen and respiratory needs were continued. 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 We suspect stomach contents was brought up into your windpipe which went to your lungs causing the pneumonia. You received a full course of antibiotics and do not need anymore. You went through a procedure that provided you with a tracheostomy. The trach collar should be set at 40% so that your spO2 level stays above 90%. You should keep your head elevated as much as tolerated. You were given a new pain medication to help tolerate the pain continue the Fentanyl 50 mcg patch. You are on a prednisone taper. You need to take 10 mg once a day for two more days. The pain medication may cause constipation, you should take the colace, miralax , and senna as needed to have a bowel movement. Your G tube needs to be properly taken care of. This includes keeping the the tube lubricated so it does not irritate the skin and to keep the area clean. Change the dressings frequently. You developed a weakness in your left wrist, and you should follow up for a EMG/ NCS outpatient as well as MRI of your spine. We will refer you to Dr. Finn, a neurologist who can evaluate these symptoms. Occupational Therapy could be beneficial to regain function and will be provided at your rehab facility. You will need to have your feeding controlled as follows: Continue your Jevity 1.5 through a a rate @ 40 ml/hr, with water flushes @ 8 ml/ hr. FOLLOW-UPs: Please follow-up with Dr. Cooper for management of your cancer within 1 month of discharge. Please follow-up with Dr. Mills within 1 week of discharge Please make an appointment with Dr. Finn the neurologist within 2 weeks of discharge. You should resume your home medications as prescribed. If you experience worsening fevers, chills, chest pain, shortness of breath, nausea, vomiting , diarrhea, please return to the emergency department for evaluation. BLOOD work BMP in 5 days Referrals: Johanna Mills MD [Primary Care Provider] - 1 Week Hasmukh Finn MD [Staff Physician] - 2 Weeks Ray Cooper MD [Staff Physician] - 1 Month Disposition: CARE HOME FACILITY - Home Medications Comprehensive Discharge Medication List: Ambulatory Orders Calcitriol [Rocaltrol -] 0.25 mcg PEG BID #60 bot 02/14/18 Calcium 500Mg/Vit-D 200 Units [Os-You 500+D -] 2 tab PO BID #120 tab 02/14/18 Amino Acids/Protein Hydrolys [Prosource No Carb Liquid Pkt] 30 ml PO BID@0800, 1730 packet 05/16/18 Bisacodyl Suppository [Dulcolax Suppository -] 10 mg RC Q3D supp.rect 05/16/18 FENTANYL 50mcg PATCH [DURAGESIC 50 mcg PATCH -] 1 patch TD Q72H patch.td72 MDD 50 05/16/18 Fentanyl Patch Waste [Duragesic Patch Waste] 1 each TD PRN PRN each 05/16/18 Pantoprazole Suspension [Protonix Packets For Oral Suspension -] 40 mg NGT DAILY packet 05/16/18 Polyethylene Glycol 3350 [Miralax 119 gm Btl -] 17 gm PO DAILY bottle 05/16/18 Sheri-Cath Flush [Sheri-Cath Flush -] 10 ml IVPUSH PRN PRN ml 05/16/18 Sennosides [Senna -] 2 tab PO HS PRN tablet 05/16/18 Zinc Oxide 1 applic TP BID tube 05/16/18 oxyCODONE HCL [Roxicodone -] 5 mg PO Q8H PRN tablet MDD 15 05/16/18 predniSONE [Deltasone -] 10 mg PO DAILY 2 Days tablet 05/16/18 - Discharge Referral Referred to [facility] No
[2018-05-17] MEDS: POLYETHYLENE GLYCOL 3350 119 GM BTL PO SCH (09:16)
--- NOTE | 2018-05-17 09:55 | PN ---
Teaching Attending Note Name of Resident: Geovanna Nayak ATTENDING PHYSICIAN STATEMENT I saw and evaluated the patient. I reviewed the resident's note and discussed the case with the resident. I agree with the resident's findings and plan as documented. SUBJECTIVE: Patient has no new complains. OBJECTIVE: Vital Signs Temperature 98.1 F 05/17/18 09:14 Pulse Rate 98 H 05/17/18 09:14 Respiratory Rate 19 05/17/18 09:14 Blood Pressure 115/72 05/17/18 09:14 O2 Sat by Pulse Oximetry (%) 97 05/16/18 21:00 CBCD WBC 5.3 K/mm3 (4.0-10.0) 05/05/18 06:16 RBC 4.09 M/mm3 (4.00-5.60) D 05/05/18 06:16 Hgb 12.3 GM/dL (11.7-16.9) D 05/05/18 06:16 Hct 37.6 % (35.4-49) D 05/05/18 06:16 MCV 91.9 fl (80-96) 05/05/18 06:16 MCHC 32.6 g/dl (32.0-35.9) 05/05/18 06:16 RDW 16.2 % (11.9-15.9) H 05/05/18 06:16 Plt Count 371 K/MM3 (134-434) D 05/05/18 06:16 MPV 7.4 fl (7.5-11.1) L 05/05/18 06:16 CMP Sodium 129 mmol/L (136-145) L 05/17/18 06:15 Potassium 4.2 mmol/L (3.5-5.1) 05/17/18 06:15 Chloride 93 mmol/L (98-107) L 05/17/18 06:15 Carbon Dioxide 26 mmol/L (21-32) 05/17/18 06:15 Anion Gap 10 (8-16) 05/17/18 06:15 BUN 13 mg/dL (7-18) 05/17/18 06:15 Creatinine 0.3 mg/dL (0.7-1.3) L 05/17/18 06:15 Creat Clearance w eGFR > 60 (>60) 05/17/18 06:15 Random Glucose 102 mg/dL (74-106) 05/17/18 06:15 Calcium 7.6 mg/dL (8.5-10.1) L 05/17/18 06:15 Total Bilirubin 0.3 mg/dL (0.2-1.0) 05/15/18 06:10 AST 74 U/L (15-37) H D 05/15/18 06:10 ALT 36 U/L (12-78) 05/15/18 06:10 Alkaline Phosphatase 198 U/L (45-117) H D 05/15/18 06:10 Total Protein 5.6 g/dl (6.4-8.2) L 05/15/18 06:10 Albumin 2.2 g/dl (3.4-5.0) L 05/15/18 06:10 CARDIAC ENZYMES Troponin I < 0.02 ng/ml (0.00-0.05) 04/16/18 02:15 Current Medications Generic Name Dose Route Start Last Admin Trade Name Freq PRN Reason Stop Dose Admin Amino Acids 30 ml 04/21/18 17:30 05/17/18 08:55 Prosource No Carb Liquid Pkt PO 30 ml BID@0800,1730 YUKO Administration Bisacodyl 10 mg 04/25/18 20:30 05/16/18 21:37 Dulcolax Suppository - RC Not Given Q3D YUKO Docusate Sodium 100 mg 04/23/18 14:00 05/17/18 07:41 Colace Liquid - PO Not Given TID YUKO Enoxaparin Sodium 40 mg 05/08/18 12:45 05/17/18 09:08 Lovenox - SQ 40 mg DAILY YUKO Administration Fentanyl 1 patch 05/10/18 16:00 05/16/18 16:03 Duragesic 50mcg Patch - TD 05/17/18 15:59 1 patch Q72H YUKO Administration IV Flush 10 ml 04/23/18 16:59 05/08/18 14:18 Sheri-Cath Flush IVPUSH 10 ml PRN PRN Administration FLUSH Sodium Chloride 1,000 mls @ 75 mls/hr 05/13/18 09:15 05/17/18 09:08 Normal Saline - IV Not Given ASDIR YUKO Lidocaine/Aluminum/Magnesium/Simeth 5 ml 04/29/18 18:00 05/17/18 06:04 Magic Mouthwash *Sjr Formula* - MM Not Given Q6HPO YUKO Miscellaneous 1 each 05/10/18 15:49 05/16/18 16:09 Duragesic Patch Waste TD 1 each PRN PRN Administration PAIN Multi-Ingredient Ointment 1 applic 05/10/18 22:00 05/17/18 09:05 Zinc Oxide TP 1 applic BID YUKO Administration Oxycodone HCl 5 mg 05/10/18 14:21 05/15/18 06:25 Roxicodone - PO 5 mg Q8H PRN Administration Pain 7-10 Pantoprazole Sodium 40 mg 04/29/18 10:00 05/17/18 09:05 Protonix Packets For Oral Suspension - NGT 40 mg DAILY YUKO Administration Polyethylene Glycol 17 gm 04/30/18 10:00 05/17/18 09:16 Miralax (For Daily Use) - PO Not Given DAILY YUKO Prednisone 10 mg 05/16/18 10:00 05/17/18 09:08 Deltasone - PO 05/18/18 10:01 10 mg DAILY YUKO Administration Senna 2 tab 04/27/18 22:00 05/11/18 22:28 Senna - PO 2 tab HS PRN Administration CONSTIPATION Home Medications Medication Instructions Recorded Calcitriol [Rocaltrol -] 0.25 mcg PEG BID #60 bot 02/14/18 Calcium 500Mg/Vit-D 200 Units 2 tab PO BID #120 tab 02/14/18 [Os-You 500+D -] Amino Acids/Protein Hydrolys 30 ml PO BID@0800,1730 packet 05/16/18 [Prosource No Carb Liquid Pkt] Bisacodyl Suppository [Dulcolax 10 mg RC Q3D supp.rect 05/16/18 Suppository -] FENTANYL 50mcg PATCH [DURAGESIC 50 1 patch TD Q72H patch.td72 MDD 50 05/16/18 mcg PATCH -] Fentanyl Patch Waste [Duragesic 1 each TD PRN PRN each 05/16/18 Patch Waste] Pantoprazole Suspension [Protonix 40 mg NGT DAILY packet 05/16/18 Packets For Oral Suspension -] Polyethylene Glycol 3350 [Miralax 17 gm PO DAILY bottle 05/16/18 119 gm Btl -] Sheri-Cath Flush [Sheri-Cath Flush 10 ml IVPUSH PRN PRN ml 05/16/18 -] Sennosides [Senna -] 2 tab PO HS PRN tablet 05/16/18 Zinc Oxide 1 applic TP BID tube 05/16/18 oxyCODONE HCL [Roxicodone -] 5 mg PO Q8H PRN tablet MDD 15 05/16/18 predniSONE [Deltasone -] 10 mg PO DAILY 2 Days tablet 05/16/18 PE: per resident's note ASSESSMENT AND PLAN: Patient is a 58 y/o male with 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 # Left hand drop/Radial nerve palsy : patient was not able to tolerate C spine MRI and refused EMG can't r/o metastasis as per 's note, w/u as an outpatient. # hyponatremia continues: Discussed with the pool manager, increased Jevity feed , and decreased the rate of IVF , will monitor. #Acute hypoxic resp failure resolved . continue current treatment.continue suctioning #H/o PE: has IVC filter. not on AC at home due to hematuria. # constipation : bowel regimen # Hx of metatstatic Laryngeal cancer, s/p larygnectomy. cont current treatment , on fentanyl patch # Leakage around PEG: cont zinc oxide and anti-fungal DNR . waiting for [facility] acceptance
--- NOTE | 2018-05-17 10:56 | PN ---
Progress Note (short form) - Note Progress Note: PULMONARY at bedside Appears stable VSS Gen: mildly tachypneic on trach collar Heart: RRR Lung: bilateral rhonchi Abd: soft, nontender Ext: no edema labs/meds/notes reviewed Amino Acids (Prosource No Carb Liquid Pkt) 30 ml PO BID@0800,1730 [facility] Last Admin: 05/16/18 08:59 Dose: 30 ml Bisacodyl (Dulcolax Suppository -) 10 mg RC Q3D [facility] Last Admin: 05/13/18 21:36 Dose: Not Given Docusate Sodium (Colace Liquid -) 100 mg PO TID [facility] Last Admin: 05/16/18 06:16 Dose: Not Given Enoxaparin Sodium (Lovenox -) 40 mg SQ DAILY [facility] Last Admin: 05/16/18 09:23 Dose: 40 mg Fentanyl (Duragesic 50mcg Patch -) 1 patch TD Q72H [facility] Stop: 05/17/18 15:59 Last Admin: 05/13/18 15:30 Dose: 1 patch IV Flush (Sheri-Cath Flush) 10 ml IVPUSH PRN PRN PRN Reason: FLUSH Last Admin: 05/08/18 14:18 Dose: 10 ml Sodium Chloride (Normal Saline -) 1,000 mls @ 75 mls/hr IV ASDIR [facility] Last Admin: 05/16/18 09:31 Dose: Not Given Lidocaine/Aluminum/Magnesium/Simeth (Magic Mouthwash *Sjr Formula* -) 5 ml MM Q6HPO [facility] Last Admin: 05/16/18 05:02 Dose: Not Given Miscellaneous (Duragesic Patch Waste) 1 each TD PRN PRN PRN Reason: PAIN Last Admin: 05/13/18 15:36 Dose: 1 each Multi-Ingredient Ointment (Zinc Oxide) 1 applic TP BID [facility] Last Admin: 05/16/18 09:32 Dose: 1 applic Oxycodone HCl (Roxicodone -) 5 mg PO Q8H PRN PRN Reason: Pain 7-10 Last Admin: 05/15/18 06:25 Dose: 5 mg Pantoprazole Sodium (Protonix Packets For Oral Suspension -) 40 mg NGT DAILY [facility] Last Admin: 05/16/18 09:24 Dose: 40 mg Polyethylene Glycol (Miralax (For Daily Use) -) 17 gm PO DAILY [facility] Last Admin: 05/16/18 09:25 Dose: Not Given Prednisone (Deltasone -) 10 mg PO DAILY [facility] Stop: 05/18/18 10:01 Last Admin: 05/16/18 09:24 Dose: 10 mg Senna (Senna -) 2 tab PO HS PRN PRN Reason: CONSTIPATION Last Admin: 05/11/18 22:28 Dose: 2 tab A/P Acute on Chronic Respiratory failure Pneumonia Pleural Effusion LV Diastolic Dysfunction Laryngeal CA - completed antibiotics - enteral feeds - trach collar as tolerated - taper FiO2 to keep SpO2 >90% - prednisone taper - inhaled bronchodilators - DVT prophylaxis - Will order CXR - d/c planning in progress
[2018-05-17] MEDS ORDERED: ALBUTEROL SO4 0.083% IH SOL 2.5 MG/3 ML VIAL.NEB. NEB ONE ×2 (11:06→17:30)
--- NOTE | 2018-05-17 14:02 | PN ---
Progress Note, Physician History of Present Illness: patient stable no issues looks comfortable - Current Medication List Current Medications: Active Medications Amino Acids (Prosource No Carb Liquid Pkt) 30 ml PO BID@0800,1730 [facility] Last Admin: 05/17/18 08:55 Dose: 30 ml Bisacodyl (Dulcolax Suppository -) 10 mg RC Q3D [facility] Last Admin: 05/16/18 21:37 Dose: Not Given Docusate Sodium (Colace Liquid -) 100 mg PO TID [facility] Last Admin: 05/17/18 07:41 Dose: Not Given Enoxaparin Sodium (Lovenox -) 40 mg SQ DAILY [facility] Last Admin: 05/17/18 09:08 Dose: 40 mg Fentanyl (Duragesic 50mcg Patch -) 1 patch TD Q72H [facility] Stop: 05/17/18 15:59 Last Admin: 05/16/18 16:03 Dose: 1 patch IV Flush (Sheri-Cath Flush) 10 ml IVPUSH PRN PRN PRN Reason: FLUSH Last Admin: 05/08/18 14:18 Dose: 10 ml Sodium Chloride (Normal Saline -) 1,000 mls @ 75 mls/hr IV ASDIR [facility] Last Admin: 05/17/18 09:08 Dose: Not Given Lidocaine/Aluminum/Magnesium/Simeth (Magic Mouthwash *Sjr Formula* -) 5 ml MM Q6HPO [facility] Last Admin: 05/17/18 11:56 Dose: Not Given Miscellaneous (Duragesic Patch Waste) 1 each TD PRN PRN PRN Reason: PAIN Last Admin: 05/16/18 16:09 Dose: 1 each Multi-Ingredient Ointment (Zinc Oxide) 1 applic TP BID [facility] Last Admin: 05/17/18 09:05 Dose: 1 applic Oxycodone HCl (Roxicodone -) 5 mg PO Q8H PRN PRN Reason: Pain 7-10 Last Admin: 05/15/18 06:25 Dose: 5 mg Pantoprazole Sodium (Protonix Packets For Oral Suspension -) 40 mg NGT DAILY [facility] Last Admin: 05/17/18 09:05 Dose: 40 mg Polyethylene Glycol (Miralax (For Daily Use) -) 17 gm PO DAILY [facility] Last Admin: 05/17/18 09:16 Dose: Not Given Prednisone (Deltasone -) 10 mg PO DAILY [facility] Stop: 05/18/18 10:01 Last Admin: 05/17/18 09:08 Dose: 10 mg Senna (Senna -) 2 tab PO HS PRN PRN Reason: CONSTIPATION Last Admin: 05/11/18 22:28 Dose: 2 tab - Objective Vital Signs: Vital Signs Temperature 98.1 F 05/17/18 09:14 Pulse Rate 98 H 05/17/18 09:14 Respiratory Rate 19 05/17/18 09:14 Blood Pressure 115/72 05/17/18 09:14 O2 Sat by Pulse Oximetry (%) 97 05/17/18 09:00 Constitutional: Yes: No Distress, Calm Cardiovascular: Yes: Regular Rate and Rhythm Respiratory: Yes: Other (on trach collar) Gastrointestinal: Yes: Normal Bowel Sounds, Soft, Other (peg) Labs: CBC, BMP 05/05/18 06:16 05/17/18 06:15 INR, PTT INR 1.32 (0.82-1.09) H 04/18/18 06:00 Assessment/Plan Problem List - Problems (1) Sepsis Code(s): A41.9 - SEPSIS, UNSPECIFIED ORGANISM Qualifiers: Sepsis type: sepsis due to unspecified organism Qualified Code(s): A41.9 - Sepsis, unspecified organism (2) Pneumonia Code(s): J18.9 - PNEUMONIA, UNSPECIFIED ORGANISM Qualifiers: Pneumonia type: due to unspecified organism Laterality: unspecified laterality Lung location: unspecified part of lung Qualified Code(s): J18.9 - Pneumonia, unspecified organism resp failure hypoxia Problem List - Problems (1) Sepsis Code(s): A41.9 - SEPSIS, UNSPECIFIED ORGANISM (2) Neutropenia Code(s): D70.9 - NEUTROPENIA, UNSPECIFIED (3) Pneumonia Code(s): J18.9 - PNEUMONIA, UNSPECIFIED ORGANISM Qualifiers: Pneumonia type: due to unspecified organism Laterality: unspecified laterality Lung location: unspecified part of lung Qualified Code(s): J18.9 - Pneumonia, unspecified organism (4) Sepsis Code(s): A41.9 - SEPSIS, UNSPECIFIED ORGANISM Qualifiers: Sepsis type: sepsis due to unspecified organism Qualified Code(s): A41.9 - Sepsis, unspecified organism (5) Respiratory failure Code(s): J96.90 - RESPIRATORY FAILURE, UNSP, UNSP W HYPOXIA OR HYPERCAPNIA (7) Acute hypoxemic respiratory failure Code(s): J96.01 - ACUTE RESPIRATORY FAILURE WITH HYPOXIA Assessment/Plan 58 y.o. 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
[2018-05-17] MEDS ORDERED: ACETYLCYSTEINE 20% 200MG/ML 30 ML VIAL *FOR ORAL / INH USE ONLY NEB ONE ×3 (14:47→17:21)
[2018-05-17] MEDS ORDERED: ACETYLCYSTEINE 20% 200MG/ML 4 ML VIAL *FOR ORAL / INH USE ONLY NEB ONE (17:45)
--- NOTE | 2018-05-17 21:02 | PN ---
Physical Exam: SUBJECTIVE: Patient is a 58 year old male with laryngeal cancer s/p trach, g tube, DVT s/p IVC filter who was admitted with acute hypoxic respiratory failure and sepsis. He has also developed a left radial mononeuropathy. Patient had no acute events overnight. Patient is still depressed. NO complaints OBJECTIVE: Vital Signs Period Temp Pulse Resp BP Sys/Shrestha Pulse Ox Last 24 Hr 98.0 F-98.5 F 94-103 18-24 114-128/72-85 93-97 GENERAL: The patient is awake, alert with a flat affect HEAD: Normal with no signs of trauma. EYES: PERRL, extraocular movements intact LUNGS: Breath sounds equal, clear to auscultation bilaterally. Trach in place HEART: Regular rate and rhythm. ABDOMEN: Soft, nontender, nondistended gtube in place Laboratory Results - last 24 hr 05/17/18 06:15 Sodium 129 L Potassium 4.2 Chloride 93 L Carbon Dioxide 26 Anion Gap 10 BUN 13 Creatinine 0.3 L Creat Clearance w eGFR > 60 Random Glucose 102 Calcium 7.6 L Active Medications Generic Name Dose Route Start Last Admin Trade Name Freq PRN Reason Stop Dose Admin Amino Acids 30 ml 04/21/18 17:30 05/17/18 18:09 Prosource No Carb Liquid Pkt PO 30 ml BID@0800,1730 YUKO Administration Bisacodyl 10 mg 04/25/18 20:30 05/16/18 21:37 Dulcolax Suppository - RC Not Given Q3D YUKO Docusate Sodium 100 mg 04/23/18 14:00 05/17/18 16:09 Colace Liquid - PO Not Given TID YUKO Enoxaparin Sodium 40 mg 05/08/18 12:45 05/17/18 09:08 Lovenox - SQ 40 mg DAILY YUKO Administration IV Flush 10 ml 04/23/18 16:59 05/08/18 14:18 Sheri-Cath Flush IVPUSH 10 ml PRN PRN Administration FLUSH Sodium Chloride 1,000 mls @ 50 mls/hr 05/17/18 14:47 05/17/18 15:00 Normal Saline - IV 50 mls/hr ASDIR YUKO Administration Lidocaine/Aluminum/Magnesium/Simeth 5 ml 04/29/18 18:00 05/17/18 18:15 Magic Mouthwash *Sjr Formula* - MM Not Given Q6HPO YUKO Miscellaneous 1 each 05/10/18 15:49 05/16/18 16:09 Duragesic Patch Waste TD 1 each PRN PRN Administration PAIN Multi-Ingredient Ointment 1 applic 05/10/18 22:00 05/17/18 09:05 Zinc Oxide TP 1 applic BID YUKO Administration Oxycodone HCl 5 mg 05/10/18 14:21 05/15/18 06:25 Roxicodone - PO 5 mg Q8H PRN Administration Pain 7-10 Pantoprazole Sodium 40 mg 04/29/18 10:00 05/17/18 09:05 Protonix Packets For Oral Suspension - NGT 40 mg DAILY YUKO Administration Polyethylene Glycol 17 gm 04/30/18 10:00 05/17/18 09:16 Miralax (For Daily Use) - PO Not Given DAILY YUKO Prednisone 10 mg 05/16/18 10:00 05/17/18 09:08 Deltasone - PO 05/18/18 10:01 10 mg DAILY YUKO Administration Senna 2 tab 04/27/18 22:00 05/11/18 22:28 Senna - PO 2 tab HS PRN Administration CONSTIPATION ASSESSMENT/PLAN: Patient is a 58 year old male with laryngeal cancer s/p trach, g tube, DVT s/p IVC filter who was admitted with acute hypoxic respiratory failure and sepsis. Patient pending social work for discharge. # Left hand mono neuropathy -Per Neuro bedside OT could be beneficial, consult physiatry, - EMG/NCS refused - MRI refused, if competed and c-spine+for mets; will contact concology ( pt and requested Dr. Cooper) -Vitamin B 12 found to be elevated #Hyponatremia -Most recent Na:128, baseline ~130 -continue to monitor -continue fluids #Acute hypoxic respiratory dysfunction - Sepsis resolved -Weaned off ventilator; tolerating trach collar at 40% -Maintain SpO2 >90% -Continue aspiration precautions -Continue Fentanyl 50 mcg patch -Prednisone 10 mg qdaily; continue to taper #Severe Sepsis -Resolved; ID consulted #Abdominal Distension -likely 2/2 to ileus from pain medication -refused colace today -Senna 2 tabs HS -Dulcolax suppository q3day prn #Gtube leak -Resolved PPX: -DVT-Lovenox 40 mg qdaily Code status: DNR; confirmed with pt and with his at bedside Dispo: d/c planning; Should be tomorrow, Taper prednisone with three doses of 10 mg ending 05/18 Visit type - Emergency Visit Emergency Visit: No - New Patient This patient is new to me today: No - Critical Care Critical Care patient: No
[2018-05-17] MEDS ORDERED: FUROSEMIDE 40 MG/4 ML INJECTABLE VIAL ONE (22:02)
[2018-05-17] MEDS ORDERED: morphine SULFATE 4 MG/ML VIAL ONE (22:03)
[2018-05-18 01:14] VITALS: PULSE 95
[2018-05-18] MEDS: MAG HYDROX/ALH/SMC/DPHA/LIDO 240 ML MOUTHWASH MM SCH (06:05)
[2018-05-18] MEDS: DOCUSATE NA 100 MG/10 ML UNIT-DOSE CUPS PO SCH (06:05)
[2018-05-18 07:42] VITALS: BP 121/80; TEMP 98.1
--- NOTE | 2018-05-18 07:46 | HOSP ---
Subjective - Review of Symptoms Events since last encounter: Called to see a DNR found lying still PE: Gen: Pt lying still, No spontaneous respiratory effort-trached Neuro: Pupils fixed and dilated, absent corneal reflex CVS-Absent central pulses, no heart sounds Resp: No respiratory effort, absent Breath Sound Assessment: Patient was pronounced at 7. 40 am on 05/18/[address] Carmina Ritter Nurse by bedside Family to be contacted Primary team contacted <Theodore Salgado - Last Filed: 05/18/18 07:47> Physical Examination Vital Signs: Labs: <Theodore Salgado - Last Filed: 05/18/18 07:47> Vital Signs: Vital Signs Temperature 98.1 F 05/18/18 06:00 Pulse Rate 95 H 05/18/18 06:00 Respiratory Rate 20 05/18/18 06:00 Blood Pressure 121/80 05/18/18 06:00 O2 Sat by Pulse Oximetry (%) 95 05/17/18 21:00 Labs: CBC, BMP 05/05/18 06:16 05/17/18 06:15 <Carmina Ritter I - Last Filed: 05/18/18 09:50>
--- NOTE | 2018-05-18 11:40 | PN ---
Progress Note, Physician - Current Medication List Current Medications: Active Medications Amino Acids (Prosource No Carb Liquid Pkt) 30 ml PO BID@0800,1730 [facility] Last Admin: 05/17/18 18:09 Dose: 30 ml Bisacodyl (Dulcolax Suppository -) 10 mg RC Q3D [facility] Last Admin: 05/16/18 21:37 Dose: Not Given Docusate Sodium (Colace Liquid -) 100 mg PO TID [facility] Last Admin: 05/18/18 06:05 Dose: Not Given Enoxaparin Sodium (Lovenox -) 40 mg SQ DAILY [facility] Last Admin: 05/17/18 09:08 Dose: 40 mg IV Flush (Sheri-Cath Flush) 10 ml IVPUSH PRN PRN PRN Reason: FLUSH Last Admin: 05/08/18 14:18 Dose: 10 ml Sodium Chloride (Normal Saline -) 1,000 mls @ 50 mls/hr IV ASDIR [facility] Last Admin: 05/17/18 23:39 Dose: 50 mls/hr Lidocaine/Aluminum/Magnesium/Simeth (Magic Mouthwash *Sjr Formula* -) 5 ml MM Q6HPO [facility] Last Admin: 05/18/18 06:05 Dose: Not Given Miscellaneous (Duragesic Patch Waste) 1 each TD PRN PRN PRN Reason: PAIN Last Admin: 05/16/18 16:09 Dose: 1 each Multi-Ingredient Ointment (Zinc Oxide) 1 applic TP BID [facility] Last Admin: 05/17/18 22:48 Dose: 1 applic Oxycodone HCl (Roxicodone -) 5 mg PO Q8H PRN PRN Reason: Pain 7-10 Last Admin: 05/15/18 06:25 Dose: 5 mg Pantoprazole Sodium (Protonix Packets For Oral Suspension -) 40 mg NGT DAILY [facility] Last Admin: 05/17/18 09:05 Dose: 40 mg Polyethylene Glycol (Miralax (For Daily Use) -) 17 gm PO DAILY [facility] Last Admin: 05/17/18 09:16 Dose: Not Given Senna (Senna -) 2 tab PO HS PRN PRN Reason: CONSTIPATION Last Admin: 05/11/18 22:28 Dose: 2 tab - Objective Vital Signs: Vital Signs Temperature 98.1 F 07/05/18 06:00 Pulse Rate 95 H 05/18/18 06:00 Respiratory Rate 20 05/18/18 06:00 Blood Pressure 121/80 05/18/18 06:00 O2 Sat by Pulse Oximetry (%) 95 05/17/18 21:00 Labs: CBC, BMP 05/05/18 06:16 05/17/18 06:15 INR, PTT INR 1.32 (0.82-1.09) H 04/18/18 06:00
--- NOTE | 2018-05-18 12:07 | RAPID ---
Physical Examination Vital Signs: Rapid response was called for the patient found to be unresponsive. Pt. was examined and found to be pulseless. Chart was reviewed simultaneously and patient was found to be DNR. PE: Gen: Pt lying still, No spontaneous respiratory effort-trached Neuro: Pupils fixed and dilated, absent corneal reflex CVS-Absent central pulses, no heart sounds Resp: No respiratory effort, absent Breath Sound Assessment: Patient was pronounced at 7. 40 am on 05/18/[address] Carmina Ritter Nurse by bedside Family to be contacted Primary team contacted Labs:
--- NOTE | 2018-05-18 15:37 | DS ---
Physical Exam: SUBJECTIVE: Patient seen and examined OBJECTIVE: Vital Signs Period Temp Pulse Resp BP Sys/Shrestha Pulse Ox Last 24 Hr 98.0 F-98.1 F 95-103 18-20 114-123/80-84 93-95 PHYSICAL EXAM GENERAL: The patient is awake, alert, and fully oriented, in no acute distress. HEAD: Normal with no signs of trauma. EYES: PERRL, extraocular movements intact, sclera anicteric, conjunctiva clear. ENT: Ears normal, nares patent, oropharynx clear without exudates, moist mucous membranes. NECK: Trachea midline, full range of motion, supple. LUNGS: Breath sounds equal, clear to auscultation bilaterally, no wheezes, no crackles, no accessory muscle use. HEART: Regular rate and rhythm, S1, S2 without murmur, rub or gallop. ABDOMEN: Soft, nontender, nondistended, normoactive bowel sounds, no guarding, no rebound, no hepatosplenomegaly, no masses. EXTREMITIES: 2+ pulses, warm, well-perfused, no edema. NEUROLOGICAL: Cranial nerves II through XII grossly intact. Normal speech, gait not observed. PSYCH: Normal mood, normal affect. SKIN: Warm, dry, normal turgor, no rashes or lesions noted. LABS HOSPITAL COURSE: Date of Admission:04/16/18 Pt was admitted on 04/16/18 due to becoming altered, rigors, and noted to have multiple secretions from his tracheostomy site. Pt was found to have severe sepsis 2/2 to aspiration PNA and was first maintained on Vancomycin 1gm and Zosyn 4.5q8h IV alongside of IVF. At no time did the pt become hypotensive despite IVF therapy. Pts tracheostomy site was changed to a Bovana XLT 7.0 trach site due to pts enlarged stoma. Pt was initially ventilated with mechanical support on AC mode and was found to have large pleural effusion and chest tube was placed in ICU. He drained an appropriate amount of fluid with good respiratory response allowing us to wean him further from AC mode of ventilation. Pleural fluid studies and cytology were sent which revealed no malignant cells and a transudative effusion. Pt was eventually weaned off of mechanical ventilation and was placed on trach collar with blow-by oxygen on 10/01. At this time pt had also completed his 5 days worth of antibiotic therapy for his aspiration pneumonia and had fevers subsided. Due to pts laryngeal carcinoma, pt required higher pain medications to control his chronic pain. Unfortunately, pt developed a tense abdomen at this time and was noted to have some G-tube leak with his tube feeds. AXR was ordered which revealed a possible ileus. Pt had tube feeds held and a bowel regiment was put into place which allowed relief of his ileus. GI was consulted who repositioned the PEG tube and leak was minimized at this time. Decision to NOT replace GT was made because it was deemed that pts leak would worsen if done. In addition, pt was noted to develop depression throughout his hospital course. Pt was started on Lexapro 10mg qDaily and psych was placed on case, however pt s depression did not alleviate and he began to have rigors and tremors. Lexapro 10mg qdaily was tapered down and discontinued at this point. Pt continued to be care for as we awaited placement into a nursing home facility or acute care center. Pt required a higher level of care and in the interim weaning of his oxygen and respiratory needs were continued. For multiple days patient continued to wait for social placement. On 05/18, nurse found patient to have stopped breathing and be pulseless. Patient was DNR/ DNI. He was pronounced at 7:40 am. Date of Discharge: 05/18/18 Minutes to complete discharge: 40 <Geovanna Nayak - Last Filed: 05/18/18 15:25> Physical Exam: Vital Signs Temperature 98.1 F 05/18/18 06:00 Pulse Rate 95 H 05/18/18 06:00 Respiratory Rate 20 05/18/18 06:00 Blood Pressure 121/80 05/18/18 06:00 O2 Sat by Pulse Oximetry (%) 95 05/17/18 21:00 CBCD WBC 5.3 K/mm3 (4.0-10.0) 05/05/18 06:16 RBC 4.09 M/mm3 (4.00-5.60) D 05/05/18 06:16 Hgb 12.3 GM/dL (11.7-16.9) D 05/05/18 06:16 Hct 37.6 % (35.4-49) D 05/05/18 06:16 MCV 91.9 fl (80-96) 05/05/18 06:16 MCHC 32.6 g/dl (32.0-35.9) 05/05/18 06:16 RDW 16.2 % (11.9-15.9) H 05/05/18 06:16 Plt Count 371 K/MM3 (134-434) D 05/05/18 06:16 MPV 7.4 fl (7.5-11.1) L 05/05/18 06:16 CMP Sodium 129 mmol/L (136-145) L 05/17/18 06:15 Potassium 4.2 mmol/L (3.5-5.1) 05/17/18 06:15 Chloride 93 mmol/L (98-107) L 05/17/18 06:15 Carbon Dioxide 26 mmol/L (21-32) 05/17/18 06:15 Anion Gap 10 (8-16) 05/17/18 06:15 BUN 13 mg/dL (7-18) 05/17/18 06:15 Creatinine 0.3 mg/dL (0.7-1.3) L 05/17/18 06:15 Creat Clearance w eGFR > 60 (>60) 05/17/18 06:15 Random Glucose 102 mg/dL (74-106) 05/17/18 06:15 Calcium 7.6 mg/dL (8.5-10.1) L 05/17/18 06:15 Total Bilirubin 0.3 mg/dL (0.2-1.0) 05/15/18 06:10 AST 74 U/L (15-37) H D 05/15/18 06:10 ALT 36 U/L (12-78) 05/15/18 06:10 Alkaline Phosphatase 198 U/L (45-117) H D 05/15/18 06:10 Total Protein 5.6 g/dl (6.4-8.2) L 05/15/18 06:10 Albumin 2.2 g/dl (3.4-5.0) L 05/15/18 06:10 CARDIAC ENZYMES Troponin I < 0.02 ng/ml (0.00-0.05) 04/16/18 02:15 Home Medications Medication Instructions Recorded Calcitriol [Rocaltrol -] 0.25 mcg PEG BID #60 bot 02/14/18 Calcium 500Mg/Vit-D 200 Units 2 tab PO BID #120 tab 02/14/18 [Os-You 500+D -] Amino Acids/Protein Hydrolys 30 ml PO BID@0800,1730 packet 05/16/18 [Prosource No Carb Liquid Pkt] Bisacodyl Suppository [Dulcolax 10 mg RC Q3D supp.rect 05/16/18 Suppository -] FENTANYL 50mcg PATCH [DURAGESIC 50 1 patch TD Q72H patch.td72 MDD 50 05/16/18 mcg PATCH -] Fentanyl Patch Waste [Duragesic 1 each TD PRN PRN each 05/16/18 Patch Waste] Pantoprazole Suspension [Protonix 40 mg NGT DAILY packet 05/16/18 Packets For Oral Suspension -] Polyethylene Glycol 3350 [Miralax 17 gm PO DAILY bottle 05/16/18 119 gm Btl -] Sheri-Cath Flush [Sheri-Cath Flush 10 ml IVPUSH PRN PRN ml 05/16/18 -] Sennosides [Senna -] 2 tab PO HS PRN tablet 05/16/18 Zinc Oxide 1 applic TP BID tube 05/16/18 oxyCODONE HCL [Roxicodone -] 5 mg PO Q8H PRN tablet MDD 15 05/16/18 predniSONE [Deltasone -] 10 mg PO DAILY 2 Days tablet 05/16/18 HOSPITAL COURSE: at 7:40am Date of Admission:04/16/18 Date of Discharge: 05/18/18 at 7:40am. Rapid response was called by the nurse. call out operator team ; found the patient unresponsive, No tactile stimuli, no audible pulses. patient was pronounced at 7 :40am. the was notified. <Rasta Weinstein - Last Filed: 05/18/18 16:06> Discharge Summary Reason For Visit: SEPSIS, PNEUMONIA - Home Medications Comprehensive Discharge Medication List: Ambulatory Orders Calcitriol [Rocaltrol -] 0.25 mcg PEG BID #60 bot 02/14/18 Calcium 500Mg/Vit-D 200 Units [Os-You 500+D -] 2 tab PO BID #120 tab 02/14/18 Amino Acids/Protein Hydrolys [Prosource No Carb Liquid Pkt] 30 ml PO BID@0800, 1730 packet 05/16/18 Bisacodyl Suppository [Dulcolax Suppository -] 10 mg RC Q3D supp.rect 05/16/18 FENTANYL 50mcg PATCH [DURAGESIC 50 mcg PATCH -] 1 patch TD Q72H patch.td72 MDD 50 05/16/18 Fentanyl Patch Waste [Duragesic Patch Waste] 1 each TD PRN PRN each 05/16/18 Pantoprazole Suspension [Protonix Packets For Oral Suspension -] 40 mg NGT DAILY packet 05/16/18 Polyethylene Glycol 3350 [Miralax 119 gm Btl -] 17 gm PO DAILY bottle 05/16/18 Sheri-Cath Flush [Sheri-Cath Flush -] 10 ml IVPUSH PRN PRN ml 05/16/18 Sennosides [Senna -] 2 tab PO HS PRN tablet 05/16/18 Zinc Oxide 1 applic TP BID tube 05/16/18 oxyCODONE HCL [Roxicodone -] 5 mg PO Q8H PRN tablet MDD 15 05/16/18 predniSONE [Deltasone -] 10 mg PO DAILY 2 Days tablet 05/16/18 <Geovanna Nayak - Last Filed: 05/18/18 15:25> - Home Medications Comprehensive Discharge Medication List: Ambulatory Orders Calcitriol [Rocaltrol -] 0.25 mcg PEG BID #60 bot 02/14/18 Calcium 500Mg/Vit-D 200 Units [Os-You 500+D -] 2 tab PO BID #120 tab 02/14/18 Amino Acids/Protein Hydrolys [Prosource No Carb Liquid Pkt] 30 ml PO BID@0800, 1730 packet 05/16/18 Bisacodyl Suppository [Dulcolax Suppository -] 10 mg RC Q3D supp.rect 05/16/18 FENTANYL 50mcg PATCH [DURAGESIC 50 mcg PATCH -] 1 patch TD Q72H patch.td72 MDD 50 05/16/18 Fentanyl Patch Waste [Duragesic Patch Waste] 1 each TD PRN PRN each 05/16/18 Pantoprazole Suspension [Protonix Packets For Oral Suspension -] 40 mg NGT DAILY packet 05/16/18 Polyethylene Glycol 3350 [Miralax 119 gm Btl -] 17 gm PO DAILY bottle 05/16/18 Sheri-Cath Flush [Sheri-Cath Flush -] 10 ml IVPUSH PRN PRN ml 05/16/18 Sennosides [Senna -] 2 tab PO HS PRN tablet 05/16/18 Zinc Oxide 1 applic TP BID tube 05/16/18 oxyCODONE HCL [Roxicodone -] 5 mg PO Q8H PRN tablet MDD 15 05/16/18 predniSONE [Deltasone -] 10 mg PO DAILY 2 Days tablet 05/16/18 <Rasta Weinstein - Last Filed: 05/18/18 16:06> - Instructions Diet, Activity, Other Instructions: Disposition: This patient is new to me today: No Emergency Visit: No Critical Care patient: No - Discharge Referral Referred to [facility] Med [facility] No <Geovanna Nayak - Last Filed: 05/18/18 15:25>
== END 2018-05-18 08:00 | disposition expired | DRG 870 ==
LOC: JER 00:46 → JERBED 05:01 → UNDOADMIN 05:11 → JICU 06:37 → J2W 04-18 02:03 → J5S 04-18 18:35
PROVIDERS: ADMIT Internal Medicine; ATTEND Internal Medicine
PROC: 5A1955Z Respiratory Ventilation, Greater than 96 Consecutive Hours (ICD-10-PCS; principal; 2018-04-16)
PROC: 0W9B30Z Drainage of Left Pleural Cavity with Drainage Device, Percutaneous Approach (ICD-10-PCS; 2018-04-16)
DX: A41.9 Sepsis, unspecified organism (principal); R65.21 Severe sepsis with septic shock; J69.0 Pneumonitis due to inhalation of food and vomit; J96.21 Acute and chronic respiratory failure with hypoxia; J18.9 Pneumonia, unspecified organism; J90 Pleural effusion, not elsewhere classified; E87.1 Hypo-osmolality and hyponatremia; K94.23 Gastrostomy malfunction; E87.2 Acidosis; C79.89 Secondary malignant neoplasm of other specified sites; E46 Unspecified protein-calorie malnutrition; Z68.1 Body mass index [BMI] 19.9 or less, adult; D70.9 Neutropenia, unspecified; F32.9 Major depressive disorder, single episode, unspecified; Z93.0 Tracheostomy status; G56.32 Lesion of radial nerve, left upper limb; Y83.9 Surgical procedure, unspecified as the cause of abnormal reaction of the patient, or of later complication, without mention of misadventure at the time of the procedure; D72.819 Decreased white blood cell count, unspecified; C32.9 Malignant neoplasm of larynx, unspecified; K59.00 Constipation, unspecified; Z75.1 Person awaiting admission to adequate facility elsewhere; R74.0 Nonspecific elevation of levels of transaminase and lactic acid dehydrogenase [LDH]; E83.51 Hypocalcemia
CPT/HCPCS: 36415; 36600; 71045-TC-FY; 71250-TC; 74018-TC-FY; 74019-TC-FY; 74176-TC; 80048; 80053; 80076; 82040; 82607; 82803; 82945; 83605; 83615; 83735; 83930; 83935; 83970; 83986; 84100; 84300; 84484; 85025; 85027; 85610; 85730; 87040; 87070; 87075; 87205; 88108; 88305-TC; 89051; 93005; 93010; 94002; 94640; 95860-TC; 97116-GP; 97161-GP; 99283-25; J0131; J7030; J7620